=== PATIENT | male | born 1965 | race Caucasian/White ===

== ENCOUNTER 2018-03-05 11:56 | Day surgery (SDC) | END 2018-03-05 16:57 | disposition home or self-care (01) ==

== ENCOUNTER 2018-08-25 13:20 | Inpatient (IN) | END 2018-08-26 12:38 | disposition home or self-care (01) | DRG 379 ==

== ENCOUNTER 2018-09-30 10:53 | Inpatient (IN) | payer OTHER ==
[~2018-09-30] VITALS: Ht 162.6 cm; Wt 90.0 kg
[~2018-09-30 10:53] MED LIST: FER325 PO; HYDR25SU23 PR; PANT40TA3 PO
[2018-09-30] MEDS ORDERED: PANTOPRAZOLE 40 MG INJ IV STA (11:14)
--- NOTE | 2018-09-30 13:09 | ERD ---
ER Documentation Chief Complaint Chief Complaint sent by pcp - hx of Gi bleed - possible blood transfusion ,hx of bt 07/2018 HPI 52-year-old male presents to the emergency department on referral from the primary care doctor for evaluation of anemia. Patient has a history of chronic GI bleeds from AVMs. Most recently, he feels weak which is the way that he usually feels after he gets anemic. He reports no significant abdominal pain, lightheadedness, loss of consciousness, chest pain or shortness of breath. ROS All systems reviewed and are negative except as per history of present illness. Medications Home Meds Active Scripts Pantoprazole* (Protonix*) 40 Mg Tablet.dr, 40 MG PO DAILY, #30 TAB Prov:JIMENA STONE [employer] 08/26/18 Hydrocortisone Acetate (Anusol-Hc) 25 Mg Supp.rect, 25 MG MI QHS, #10 SUPP.RECT Prov:JIMENA STONE [employer] 08/26/18 Reported Medications Ferrous Sulfate* (Ferrous Sulfate*) 325 Mg Tabec, 325 MG PO BID, TAB 08/25/18 Allergies Allergies: Coded Allergies: No Known Allergy (Unverified , 08/25/18) PMhx/Soc History of Surgery: Yes (Tonsilectomy, right knee surgery) Anesthesia Reaction: No Hx Neurological Disorder: No Hx Respiratory Disorders: No Hx Cardiac Disorders: No Hx Psychiatric Problems: No Hx Miscellaneous Medical Probl: Yes (anemia, gerd) Hx Alcohol Use: Yes (occasional) Hx Substance Use: No Hx Tobacco Use: No Smoking Status: Never smoker FmHx Noncontributory for chief complaint Physical Exam Vitals Vital Signs Date Temp Pulse Resp B/P (MAP) Pulse Ox O2 O2 Flow FiO2 Time Delivery Rate 09/30/18 98.5 74 19 117/68 100 10:54 (84) Physical Exam GENERAL: Pale gentleman in no acute distress HEENT: Pupils equal, round, and reactive to light. EOMI. There is no scleral icterus. NECK: C-spine is soft and supple, there is no meningismus. There is no cervical lymphadenopathy. LUNGS: Clear to auscultation bilaterally. There are no rales, wheezes or rhonchi. HEART: Regular rate and rhythm, no murmurs, clicks, rubs or gallops. ABDOMEN: Soft, non-tender, non-distended. There are bowel sounds in all four quadrants. No rebound or guarding. EXTREMITIES: There is no peripheral cyanosis or edema. No focal swelling or erythema. NEURO: The patient moves all four extremities with 5/5 strength. Cranial nerves II - XII are intact. Normal gait. Alert and oriented SKIN: There is no apparent rash or petechiae. HEME/LYMPHATIC: There is no evidence of excessive bruising or lymphedema. PSYCHIATRIC: The patient does not appear anxious or depressed. Result Diagram: 09/30/18 1133 09/30/18 1133 Results 24 hrs Laboratory Tests Test 09/30/18 11:33 White Blood Count 4.9 10^3/ul Red Blood Count 3.46 10^6/ul Hemoglobin 6.3 g/dl Hematocrit 24.6 % Mean Corpuscular Volume 71.1 fl Mean Corpuscular Hemoglobin 18.2 pg Mean Corpuscular Hemoglobin Concent 25.6 g/dl Red Cell Distribution Width 21.2 % Platelet Count 378 10^3/UL Mean Platelet Volume 10.4 fl Immature Granulocytes % 0.200 % Neutrophils % 66.7 % Lymphocytes % 20.8 % Monocytes % 8.0 % Eosinophils % 4.1 % Basophils % 0.2 % Nucleated Red Blood Cells % 0.0 /100WBC Immature Granulocytes # 0.010 10^3/ul Neutrophils # 3.3 10^3/ul Lymphocytes # 1.0 10^3/ul Monocytes # 0.4 10^3/ul Eosinophils # 0.2 10^3/ul Basophils # 0.0 10^3/ul Nucleated Red Blood Cells # 0.0 10^3/ul Prothrombin Time 13.4 Sec Prothrombin Time Ratio 1.0 INR International Normalized Ratio 1.01 Activated Partial Thromboplast Time 24.1 Sec Sodium Level 138 mmol/L Potassium Level 3.9 mmol/L Chloride Level 103 mmol/L Carbon Dioxide Level 29 mmol/L Anion Gap 6 Blood Urea Nitrogen 10 mg/dl Creatinine 0.74 mg/dl Est Glomerular Filtrat Rate mL/min > 60 mL/min Glucose Level 85 mg/dl Calcium Level 9.1 mg/dl Total Bilirubin 0.3 mg/dl Direct Bilirubin 0.00 mg/dl Indirect Bilirubin 0.3 mg/dl Aspartate Amino Transf (AST/SGOT) 12 IU/L Alanine Aminotransferase (ALT/SGPT) 19 IU/L Alkaline Phosphatase 64 IU/L Troponin I < 0.012 ng/ml Total Protein 6.8 g/dl Albumin 3.8 g/dl Globulin 3.00 g/dl Albumin/Globulin Ratio 1.26 Current Medications Medications Dose Sig/Mariano Start Time Status Last (Trade) Ordered Route PRN Stop Time Admin Dose Reason Admin 40 mg ONCE STAT 09/30/18 DC 09/30/18 Pantoprazole IV 11:14 11:45 (Protonix 09/30/18 11:16 Iv) Procedures/MDM Patient was taken to a room, seen and evaluated. Comfort measures were in itiated. Diagnostic tests were ordered and reviewed. 3 LEAD RHYTHM STRIP: Normal sinus rhythm without ectopy EK lead EKG reviewed by myself: Normal Sinus Rhythm Normal [place] and intervals No ST elevation, depression, or T wave inversion Impression: Normal EKG RADIOLOGY: Reviewed with the radiologist CONSULTATION: Hospitalist was notified for admission REEVALUATION: 1305: Diagnostic tests were appreciated. Patient remained hemo- medically stable. Arrangements made for admission. MEDICAL DECISION MAKIN-year-old male with a chronic history of GI bleeds. Patient has a severe anemia will require admission to the hospital for transfusion and monitoring. Transfusion has been initiated in the emergency room. CRITICAL CARE: Time:>35 minutes Patient has a significant chance of clinical deterioration Treatments/Evaluations: Close monitoring and treatment of unstable vital signs, cardiorespiratory, and neurologic status, while maintaining tight balance of fluid, respiratory, and cardiac interventions. Departure Diagnosis: Primary Impression: GI bleed Additional Impression: Anemia Condition: Serious GODFREYCONCHA Sep 30, 2018 13:09
[2018-09-30] MEDS: SOD CHLORIDE 0.9% 1,000 ML IV SCH ×2 (13:36→23:36)
[2018-09-30] MEDS ORDERED: morphine 2 MG INJ IV PRN (14:00)
[2018-09-30] MEDS ORDERED: NACL 0.9% 3 ML SYG IV SCH (14:00)
[2018-09-30] MEDS ORDERED: HYDROCODONE/APAP (5/325) TAB PO PRN (14:00)
[2018-09-30] MEDS ORDERED: ONDANSETRON 4 MG INJ IV PRN (14:00)
[2018-09-30] MEDS ORDERED: ACETAMINOPHEN 325 MG TAB PO PRN (14:00)
--- NOTE | 2018-09-30 14:27 | HP ---
Date/Time of Note Date/Time of Note DATE: 09/30/18 TIME: 14:26 Assessment/Plan VTE Prophylaxis Pharmacological prophylaxis: NA/contraindicated, other Pharm contraindication: bleeding Lines/Catheters IV Catheter Type (from Nrs): [place] Assessment/Plan Hospital Course Objective Physical exam General: Patient is laying in bed and answers questions appropriately Mentation: Patient is alert and oriented 4, Head: Normocephalic atraumatic Eyes: EOMI, pupils reactive to light Neck: Supple, nontender, midline Respiratory: Clear to auscultation bilaterally Cardiovascular: regular rate, no obvious murmurs Gastrointestinal: non-tender to palpation, bowel sounds heard. Neurological: Moves all extremities spontaneously Skin: No new skin lesions Assessment and plan Acute GI bleed -Bright red blood per rectum, cannot rule out brisk upper GI bleed as patient does have a history of erosive gastritis -Will initiate PPI drip until erosive gastritis is ruled out per GI -GI consultation pending -IV fluids -N.p.o. Acute on chronic anemia -Secondary to acute blood loss as well as iron deficiency -Transfuse as needed Generalized weakness -Secondary to above acute anemia and GI bleed -Transfuse -IV fluids Disposition -GI consultation pending, keep n.p.o. with IV fluids and PPI drip. Result Diagram: 09/30/18 1133 09/30/18 1133 Results 24hrs Laboratory Tests Test 09/30/18 11:33 White Blood Count 4.9 Red Blood Count 3.46 L Hemoglobin 6.3 *L Hematocrit 24.6 L Mean Corpuscular Volume 71.1 L Mean Corpuscular Hemoglobin 18.2 L Mean Corpuscular Hemoglobin Concent 25.6 L Red Cell Distribution Width 21.2 H Platelet Count 378 Mean Platelet Volume 10.4 Immature Granulocytes % 0.200 Neutrophils % 66.7 Segmented Neutrophils % (Manual) 77 Band Neutrophils % (Manual) 2 Lymphocytes % 20.8 Lymphocytes % (Manual) 15 Monocytes % 8.0 Eosinophils % 4.1 Eosinophils % (Manual) 6 Basophils % 0.2 Nucleated Red Blood Cells % 0.0 Immature Granulocytes # 0.010 Neutrophils # 3.3 Neutrophils # (Manual) 3.8 Band Neutrophils # 0.0 Lymphocytes (Manual) 0.7 L Lymphocytes # 1.0 Monocytes # 0.4 Eosinophils # 0.2 Basophils # 0.0 Nucleated Red Blood Cells # 0.0 Pathologist Review (Hematology) YES Platelet Estimate NORMAL Giant Platelets 2 H Poikilocytosis 2+ Anisocytosis 2+ Microcytosis 1+ Ovalocytes 1+ Prothrombin Time 13.4 Prothrombin Time Ratio 1.0 INR International Normalized Ratio 1.01 Activated Partial Thromboplast Time 24.1 Sodium Level 138 Potassium Level 3.9 Chloride Level 103 Carbon Dioxide Level 29 Anion Gap 6 Blood Urea Nitrogen 10 Creatinine 0.74 Est Glomerular Filtrat Rate mL/min > 60 Glucose Level 85 Calcium Level 9.1 Total Bilirubin 0.3 Direct Bilirubin 0.00 Indirect Bilirubin 0.3 Aspartate Amino Transf (AST/SGOT) 12 L Alanine Aminotransferase (ALT/SGPT) 19 Alkaline Phosphatase 64 Troponin I < 0.012 Total Protein 6.8 Albumin 3.8 Globulin 3.00 Albumin/Globulin Ratio 1.26 HPI/ROS Admit Date/Time Admit Date/Time Hx of Present Illness Patient is a male with a past medical history significant for symptomatic anemia due to internal hemorrhoids as well as erosive gastritis. Patient returned to the ED today due to a 2-week history of progressively worsening bright red blood per rectum. Patient states that the last time he had a bloody bowel movement was yesterday, states that today there was no bloody bowel movements however he did feel noticeably weaker which he normally attributes to anemia. Patient has been admitted multiple times for similar symptoms. Patient feels generally the same except for a generalized weakness. Patient denies chest pain, shortness of breath, headache, nausea, vomiting, abdominal pain, leg pain PMH/Family/Social Past Medical History Medications Current Medications Sodium Chloride 1,000 ml @ 100 mls/hr Q10H IV ; Start 09/30/18 at 13:36 IV Flush (NS 3 ml) 3 ml PER PROTOCOL IV ; Start 09/30/18 at 14:00 Ondansetron HCl (Zofran Inj) 4 mg Q6H PRN IV NAUSEA AND/OR VOMITING; Start 09/30/18 at 14:00 Acetaminophen (Tylenol Tab) 650 mg Q6H PRN PO PAIN LEVEL 1-3 OR FEVER; Start 09/30/18 at 14:00 Acetaminophen/ Hydrocodone Bitart ([place] (5/325)) 1 tab Q6H PRN PO PAIN LEVEL 4-6; Start 09/30/18 at 14:00 Morphine Sulfate (morphine) 2 mg Q4H PRN IV PAIN LEVEL 7-10; Start 09/30/18 at 14:00 Pantoprazole 80 mg/Sodium Chloride 100 ml @ 10 mls/hr Q10H IV ; Start 09/30/18 at 14:30; Status UNV Coded Allergies: No Known Allergy (Unverified , 08/25/18) Social History Smoking Status: Never smoker Exam/Review of Systems Vital Signs Vitals Vital Signs Date Temp Pulse Resp B/P (MAP) Pulse Ox O2 O2 Flow FiO2 Time Delivery Rate 09/30/18 98.5 74 19 117/68 100 10:54 (84) LUZ ALVARADO Sep 30, 2018 14:27
[2018-09-30] MEDS: PANTOPRAZOLE IV 80 MG in SOD CHLORIDE 0.9% 100 ML IV SCH (14:59)
--- NOTE | 2018-09-30 17:01 | CONS ---
Date/Time of Note Date/Time of Note DATE: 09/30/18 TIME: 16:55 Assessment/Plan Assessment/Plan Hospital Course Summary Assessment and Plan: Assessment: Chronic anemia with recurrent GI bleed Plan: Nuclear med bleeding scan Results possible repeat EGD/colonoscopy Monitor labs (h/h q6hrs), transfuse as needed Continue PPI gtt for now Regular diet has been started Patient seen in collaboration with Dr. Hernandez Result Diagram: 09/30/18 1133 09/30/18 1133 Results 24hrs Laboratory Tests Test 09/30/18 11:33 White Blood Count 4.9 Red Blood Count 3.46 L Hemoglobin 6.3 *L Hematocrit 24.6 L Mean Corpuscular Volume 71.1 L Mean Corpuscular Hemoglobin 18.2 L Mean Corpuscular Hemoglobin Concent 25.6 L Red Cell Distribution Width 21.2 H Platelet Count 378 Mean Platelet Volume 10.4 Immature Granulocytes % 0.200 Neutrophils % 66.7 Segmented Neutrophils % (Manual) 77 Band Neutrophils % (Manual) 2 Lymphocytes % 20.8 Lymphocytes % (Manual) 15 Monocytes % 8.0 Eosinophils % 4.1 Eosinophils % (Manual) 6 Basophils % 0.2 Nucleated Red Blood Cells % 0.0 Immature Granulocytes # 0.010 Neutrophils # 3.3 Neutrophils # (Manual) 3.8 Band Neutrophils # 0.0 Lymphocytes (Manual) 0.7 L Lymphocytes # 1.0 Monocytes # 0.4 Eosinophils # 0.2 Basophils # 0.0 Nucleated Red Blood Cells # 0.0 Pathologist Review (Hematology) YES Platelet Estimate NORMAL Giant Platelets 2 H Poikilocytosis 2+ Anisocytosis 2+ Microcytosis 1+ Ovalocytes 1+ Prothrombin Time 13.4 Prothrombin Time Ratio 1.0 INR International Normalized Ratio 1.01 Activated Partial Thromboplast Time 24.1 Sodium Level 138 Potassium Level 3.9 Chloride Level 103 Carbon Dioxide Level 29 Anion Gap 6 Blood Urea Nitrogen 10 Creatinine 0.74 Est Glomerular Filtrat Rate mL/min > 60 Glucose Level 85 Calcium Level 9.1 Total Bilirubin 0.3 Direct Bilirubin 0.00 Indirect Bilirubin 0.3 Aspartate Amino Transf (AST/SGOT) 12 L Alanine Aminotransferase (ALT/SGPT) 19 Alkaline Phosphatase 64 Troponin I < 0.012 Total Protein 6.8 Albumin 3.8 Globulin 3.00 Albumin/Globulin Ratio 1.26 CC: YOAV HERNANDEZ MD ; Consultation Date/Type/Reason Admit Date/Time Date of Consultation: Sep 30, 2018 Type of Consult GI Reason for Consultation Chronic anemia Hx of Present Illness This is a 52-year-old male with history of chronic anemia recurrent GI bleed Who presented to the hospital as directed by his PCP for low hemoglobin. Patient states he has been having bright red blood per rectum for the past 14 days evaluation normal blood workup patient found to have hemoglobin 6's he was sent to the ED for further evaluation. Currently patient denies active bleeding he additionally denies nausea/vomiting, hematemesis, diarrhea, or constipation. He states he had an EGD colonoscopy here a few months ago however according to records ED colonoscopy was in March 05, 2018 Gastric erosions, abscess negative for H. pylori. Colonoscopy elevated cecum showing internal hemorrhoids, no colon neoplasm was identified. Patient's said he was seen by a surgeon for poss ible hemorrhoidectomy they were told he had one hemorrhoid at that time with no active bleeding and therefore did not need a hemorrhoidectomy. He denies taking nonsteroidal anti-inflammatory drugs, or taking any blood thinners. We will plan to obtain a bleeding scan and continue to monitor labs based on those results, may recommend repeat EGD/colonoscopy for further information. Review of Systems: A 12 system, review was conducted and is negative except as noted in the HPI or here. Past Medical History Medications Current Medications Sodium Chloride 1,000 ml @ 100 mls/hr Q10H IV ; Start 09/30/18 at 13:36 IV Flush (NS 3 ml) 3 ml PER PROTOCOL IV ; Start 09/30/18 at 14:00 Ondansetron HCl (Zofran Inj) 4 mg Q6H PRN IV NAUSEA AND/OR VOMITING; Start 09/30/18 at 14:00 Acetaminophen (Tylenol Tab) 650 mg Q6H PRN PO PAIN LEVEL 1-3 OR FEVER; Start 09/30/18 at 14:00 Acetaminophen/ Hydrocodone Bitart ([place] (5/325)) 1 tab Q6H PRN PO PAIN LEVEL 4-6; Start 09/30/18 at 14:00 Morphine Sulfate (morphine) 2 mg Q4H PRN IV PAIN LEVEL 7-10; Start 09/30/18 at 14:00 Pantoprazole 80 mg/Sodium Chloride 100 ml @ 10 mls/hr Q10H IV Last administer ed on 09/30/18at 14:59; Admin Dose 10 MLS/HR; Start 09/30/18 at 15:00 Allergies: Coded Allergies: No Known Allergy (Unverified , 08/25/18) Social History Smoking Status: Never smoker Exam/Review of Systems Vital Signs Vitals Vital Signs Date Temp Pulse Resp B/P (MAP) Pulse Ox O2 O2 Flow FiO2 Time Delivery Rate 09/30/18 98.4 80 14 116/63 99 Room Air 16:30 (80) Exam Constitutional: alert, oriented, other (Pale) Psych: no complaints Head: normocephalic Eyes: nl conjunctiva ENMT: nl external ears & nose Neck: supple Respiratory: clear to auscultation Cardiovascular: regular rate and rhythm, nl pulses Gastrointestinal: soft, non-tender, bowel sounds; No distended, No firm, No hepatomegaly, No mass, No rebound or guarding Musculoskeletal: nl extremities to inspection Medications Medications Current Medications Sodium Chloride 1,000 ml @ 100 mls/hr Q10H IV ; Start 09/30/18 at 13:36 IV Flush (NS 3 ml) 3 ml PER PROTOCOL IV ; Start 09/30/18 at 14:00 Ondansetron HCl (Zofran Inj) 4 mg Q6H PRN IV NAUSEA AND/OR VOMITING; Start 09/30/18 at 14:00 Acetaminophen (Tylenol Tab) 650 mg Q6H PRN PO PAIN LEVEL 1-3 OR FEVER; Start 09/30/18 at 14:00 Acetaminophen/ Hydrocodone Bitart ([place] (5/325)) 1 tab Q6H PRN PO PAIN LEVEL 4-6; Start 09/30/18 at 14:00 Morphine Sulfate (morphine) 2 mg Q4H PRN IV PAIN LEVEL 7-10; Start 09/30/18 at 14:00 Pantoprazole 80 mg/Sodium Chloride 100 ml @ 10 mls/hr Q10H IV Last administered on 09/30/18at 14:59; Admin Dose 10 MLS/HR; Start 09/30/18 at 15:00 JEET VALDOVINOS Sep 30, 2018 17:01
[2018-09-30 18:55] VITALS: BP 103/57; PULSE 79; RESP 19
[2018-09-30 19:59] VITALS: Ht 162.6 cm; Wt 90.0 kg
[2018-09-30 20:00] VITALS: BP 110/64; PULSE 75; RESP 18
--- NOTE | 2018-09-30 20:00 | NUR ---
Patient arrived to room from ER via bed at 1945. Vital signs stable with no signs of distress noted. Patient denies pain upon assessment. Alert and oriented x4. Intermittent nonproductive cough noted. Patient denies discomfort. No skin breakdown noted. Protonix drip ongoing upon assessment. Oriented patient to room, call light, and bed functions. Safety precautions and hourly rounding currently in place.
[2018-10-01] MEDS: SOD CHLORIDE 0.9% 1,000 ML IV SCH ×2 (01:43→16:08)
[2018-10-01 02:00] VITALS: BP 102/55; PULSE 78; RESP 19
[2018-10-01] MEDS: PANTOPRAZOLE IV 80 MG in SOD CHLORIDE 0.9% 100 ML IV SCH ×4 (02:02→21:00)
--- NOTE | 2018-10-01 06:29 | NUR ---
Hemoglobin of 7.0 noted at this time. Notified Dr. Lucio and awaiting further orders. Safety precautions and hourly rounding currently in place.
--- NOTE | 2018-10-01 06:39 | NUR ---
Patient in room asleep with no signs of distress. Vital signs stable this shift. Patient denied pain. Protonix drip infusing at this time. Will endorse to oncoming nurse to close upon completion on IVSS. No other changes otherwise noted from previous. All needs met and medications administered per MD order. Patient turned every 2 hours and OOB this shift. Safety precautions and hourly rounding currently in place until change of shift.
[2018-10-01 08:31] VITALS: BP 103/67; PULSE 79; RESP 18
[2018-10-01] MEDS ORDERED: SOD CHLORIDE 0.9% 250 ML IV* ONE (09:33)
--- NOTE | 2018-10-01 13:13 | PN ---
Date/Time of Note Date/Time of Note DATE: 10/01/18 TIME: 13:05 Assessment/Plan VTE Prophylaxis Risk score (from Ns)>0 risk: 2 SCD applied (from Ns): Yes SCD contraindicated: other Pharmacological prophylaxis: other (scds) Lines/Catheters IV Catheter Type (from [facility]): Peripheral IV Assessment/Plan Hospital Course Summary Assessment and Plan: Assessment: Chronic anemia with recurrent GI bleed Plan: Nuclear med bleeding scan- pending pt remains anemic- no overt signs of Gi bleed- plan to repeat EGD/colonoscopy tomorrow if bleeding source deemed 2/2 to hemorrhoids, poss recs to have surgery eval for poss hemorrhoidectomy PPI BID clear liquid diet to help with prep Monitor labs transfuse as needed Patient seen in collaboration with Dr. Hernandez/Jerman Subjective: Course reviewed with nursing staff Patient interviewed and examined All labs, imaging and other results reviewed The patient currently receiving blood transfusion No c/o abd pain, nausea or vomiting Awaiting NM bleeding scan. Discussed plan for EGD/colon tomorrow pt verbalized understanding and is agreeable. PHYSICAL EXAMINATION: GENERAL: Well developed, well nourished, alert & oriented x 3, in no acute distress,pale SKIN: No lesions. HEAD: Normocephalic, atraumatic, no tenderness. EYES: Pupils equal reactive to light. EARS/NOSE AND THROAT: Ears normal, nose normal. NECK: Supple, no masses, thyroid normal CHEST: Inspection within normal limits. CARDIOVASCULAR: Heart: Regular rate and rhythm. RESPIRATORY: Lungs clear to auscultation GASTROINTESTINAL AND LIVER: Abdomen: Soft, non tenderness, non-distended, no hernias, no masses, no organomegaly, no ascites, no guarding, no rebound tenderness, normoactive bowel sounds. Rectal: Deferred Result Diagram: 10/01/1827 10/01/18526 Results 24hrs Laboratory Tests Test 10/01/18 05:27 10/01/18 07:53 White Blood Count 6.0 # Red Blood Count 3.60 L Hemoglobin 7.0 L Hematocrit 26.0 L Mean Corpuscular Volume 72.2 L Mean Corpuscular Hemoglobin 19.4 L Mean Corpuscular Hemoglobin Concent 26.9 L Red Cell Distribution Width 22.0 H Platelet Count 358 Mean Platelet Volume 9.9 Immature Granulocytes % 0.300 Neutrophils % 74.0 Lymphocytes % 16.1 Monocytes % 6.5 Eosinophils % 2.8 Basophils % 0.3 Nucleated Red Blood Cells % 0.0 Immature Granulocytes # 0.020 Neutrophils # 4.5 Lymphocytes # 1.0 Monocytes # 0.4 Eosinophils # 0.2 Basophils # 0.0 Nucleated Red Blood Cells # 0.0 Sodium Level 141 Potassium Level 4.3 Chloride Level 103 Carbon Dioxide Level 31 Anion Gap 7 Blood Urea Nitrogen 13 Creatinine 0.79 Est Glomerular Filtrat Rate mL/min > 60 Glucose Level 100 Hemoglobin A1c 5.5 Calcium Level 9.3 Magnesium Level 2.1 Total Bilirubin 0.6 Direct Bilirubin 0.00 Indirect Bilirubin 0.6 Aspartate Amino Transf (AST/SGOT) 13 L Alanine Aminotransferase (ALT/SGPT) 19 Alkaline Phosphatase 67 Total Protein 6.4 Albumin 3.5 Globulin 2.90 Albumin/Globulin Ratio 1.20 Lab Scanned Report BLOOD TRANSFUSION Exam/Review of Systems Vital Signs Vitals Vital Signs Date Temp Pulse Resp B/P (MAP) Pulse Ox O2 O2 Flow FiO2 Time Delivery Rate 10/01/18 98.6 79 18 103/67 97 Room Air 08:31 (79) Intake and Output 09/30/18 09/30/18 10/01/18 1515:00 23:00 07:00 IntakeIntake Total 279 ml 145 ml OutputOutput Total 300 ml BalanceBalance 279 ml -155 ml Medications Medications Current Medications Sodium Chloride 1,000 ml @ 100 mls/hr Q10H IV Last administered on 10/01/18at 01:43; Admin Dose 100 MLS/HR; Start 09/30/18 at 13:36 IV Flush (NS 3 ml) 3 ml PER PROTOCOL IV ; Start 09/30/18 at 14:00 Ondansetron HCl (Zofran Inj) 4 mg Q6H PRN IV NAUSEA AND/OR VOMITING; Start 09/30/18 at 14:00 Acetaminophen (Tylenol Tab) 650 mg Q6H PRN PO PAIN LEVEL 1-3 OR FEVER; Start 09/30/18 at 14:00 Acetaminophen/ Hydrocodone Bitart ([place] (5/325)) 1 tab Q6H PRN PO PAIN LEVEL 4-6; Start 09/30/18 at 14:00 Morphine Sulfate (morphine) 2 mg Q4H PRN IV PAIN LEVEL 7-10; Start 09/30/18 at 14:00 Pantoprazole 80 mg/Sodium Chloride 100 ml @ 10 mls/hr Q10H IV Last administered on 10/01/18at 02:02; Admin Dose 10 MLS/HR; Start 09/30/18 at 15:00 JEET VALDOVINOS Oct 01, 2018 13:13
[2018-10-01] MEDS ORDERED: BISACODYL (EC) 5 MG TAB PO ONE (13:30)
--- NOTE | 2018-10-01 13:38 | PN ---
Date/Time of Note Date/Time of Note DATE: 10/01/18 TIME: 13:35 Objective Vitals Vital Signs Date Temp Pulse Resp B/P (MAP) Pulse Ox O2 O2 Flow FiO2 Time Delivery Rate 10/01/18 98.6 79 18 103/67 97 Room Air 08:31 (79) Intake and Output 09/30/18 09/30/18 10/01/18 1515:00 23:00 07:00 IntakeIntake Total 279 ml 145 ml OutputOutput Total 300 ml BalanceBalance 279 ml -155 ml Results Result Diagram: 10/01/1852610/01/18526 Medications Medications Current Medications Sodium Chloride 1,000 ml @ 100 mls/hr Q10H IV Last administered on 10/01/18at 01:43; Admin Dose 100 MLS/HR; Start 09/30/18 at 13:36 IV Flush (NS 3 ml) 3 ml PER PROTOCOL IV ; Start 09/30/18 at 14:00 Ondansetron HCl (Zofran Inj) 4 mg Q6H PRN IV NAUSEA AND/OR VOMITING; Start 09/30/18 at 14:00 Acetaminophen (Tylenol Tab) 650 mg Q6H PRN PO PAIN LEVEL 1-3 OR FEVER; Start 09/30/18 at 14:00 Acetaminophen/ Hydrocodone Bitart ([place] (5/325)) 1 tab Q6H PRN PO PAIN LEVEL 4-6; Start 09/30/18 at 14:00 Morphine Sulfate (morphine) 2 mg Q4H PRN IV PAIN LEVEL 7-10; Start 09/30/18 at 14:00 Pantoprazole 80 mg/Sodium Chloride 100 ml @ 10 mls/hr Q10H IV Last administered on 10/01/18at 02:02; Admin Dose 10 MLS/HR; Start 09/30/18 at 15:00 Magnesium Citrate (Citroma) 300 ml ONCE ONCE PO ; Start 10/01/18 at 17:30; Stop 10/01/18 at 17:31 Polyethylene Glycol (Miralax) 119 gm ONCE ONCE PO ; Start 10/01/18 at 18:30; Stop 10/01/18 at 18:31 Polyethylene Glycol (Miralax) 119 gm 2ND DOSE (GI PREP) ONCE PO ; Start 10/02/18 at 06:00; Stop 10/02/18 at 06:01 Bisacodyl (Dulcolax) 10 mg 2ND DOSE (GI PREP) ONCE PO ; Start 10/02/18 at 08:00; Stop 10/02/18 at 08:01 Azithromycin 250 ml @ 250 mls/hr Q24H IVPB ; Start 10/01/18 at 14:00; Status UNV Guaifenesin/ Codeine Phosphate (Robitussin Ac Liquid Cup) 5 ml Q4H PRN PO cough; Start 10/01/18 at 14:00; Status UNV VTE Prophylaxis Risk score (from [facility])>0 risk: 2 SCD applied (from [facility]): Yes Lines/Catheters IV Catheter Type: Bah in Place: No Assessment/Plan Hospital Course subjective patient had no bloody bowel movements overnight. complains of cough. Objective Physical exam General: Patient is laying in bed and answers questions appropriately Mentation: Patient is alert and oriented 4, Head: Normocephalic atraumatic Eyes: EOMI, pupils reactive to light Neck: Supple, nontender, midline Respiratory: Clear to auscultation bilaterally Cardiovascular: regular rate, no obvious murmurs Gastrointestinal: non-tender to palpation, bowel sounds heard. Neurological: Moves all extremities spontaneously Skin: No new skin lesions Assessment and plan Acute GI bleed -Bright red blood per rectum, cannot rule out brisk upper GI bleed as patient does have a history of erosive gastritis -Will initiate PPI drip until erosive gastritis is ruled out per GI -nuclear bleeding scan and egd/colonoscopy pending -IV fluids -clears ok by GI Acute on chronic anemia -Secondary to acute blood loss as well as iron deficiency -Transfuse as needed Generalized weakness -Secondary to above acute anemia and GI bleed -Transfuse -IV fluids Disposition -nuclear scan pending -egd/colonoscopy tomorrow LUZ ALVARADO Oct 01, 2018 13:38
--- NOTE | 2018-10-01 14:00 | NUR ---
NURSE NOTE: Pt off unit at 1400 for NM scan. Earlier Dr. Womack was making rounds, informed regarding dry nonproductive cough noted with patient. No signs of distress. Pt finished blood transfusion x 1 unit. tolerated well.
[2018-10-01] MEDS: AZITHROMYCIN 500MG/NS (PMX) 250 ML IVPB SCH (16:07)
[2018-10-01] MEDS: GUAIFENESIN/CODEINE 5ML CUP PO PRN ×2 (16:36→21:31)
[2018-10-01] MEDS ORDERED: MAGNESIUM CITRATE 300 ML BTL PO ONE (17:30)
--- NOTE | 2018-10-01 18:28 | NUR ---
NURSE NOTE: no acute changes. pt is axox4. no signs of distress. cough medicine given. bowel prep started as ordered. tolerating well so far. aware regarding npo for tomorrow. spoke to lab regarding hct draw since pt is back from NM scan. family at bedside. will continue to monitor.
[2018-10-01] MEDS ORDERED: POLYETHYLENE GLYCOL 3350 119 GM POWDER PO ONE (18:30)
--- NOTE | 2018-10-01 19:46 | NUR ---
NURSE NOTE: Report given to MIA Nino. Endorsed to continue to give patient's miralax in the pitcher. Patient is aware that he needs to drink it for bowel prep. Pt finish mag citrate and one glass of 1000 ml of the miralax.
[2018-10-01 20:00] VITALS: BP 113/67; PULSE 84; RESP 18
[2018-10-02] VITALS (19 sets, daily range): BP systolic 85–126; BP diastolic 46–63; PULSE 58–88; RESP 17–73
[2018-10-02] MEDS: SOD CHLORIDE 0.9% 1,000 ML IV SCH ×3 (02:51→23:48)
[2018-10-02] MEDS: PANTOPRAZOLE IV 80 MG in SOD CHLORIDE 0.9% 100 ML IV SCH ×2 (02:51→17:42)
[2018-10-02] MEDS ORDERED: POLYETHYLENE GLYCOL 3350 119 GM POWDER PO ONE (06:00)
--- NOTE | 2018-10-02 06:56 | NUR ---
Patient in room asleep with no signs of distress. Vital signs stable. Patient complained x1 of chest pressure from intermittent nonproductive cough. Administered analgesic per MD order. Protonic drip ongoing this shift. Will endorse to oncoming nurse to close upon completion of infusion on IVSS. All needs met and medications administered per MD order. Patient turned every 2 hours and OOB this shift. Safety precautions and hourly rounding currently in place. Patient currently NPO and aware of plan of care for today.
[2018-10-02] MEDS ORDERED: BISACODYL (EC) 5 MG TAB PO ONE (08:00)
--- NOTE | 2018-10-02 11:45 | NUR ---
SS Note: AHCD/Initial Visit SW received notification pt interested in more information regarding AHCD. The patient is a 52-year-old male admitted due to GI Bleed, Anemia. Pt's spouse, Deb Montiel , was at bedside. Pt provided consent for spouse to be present. Pt awake, alert, and oriented x4. Pt very pleasant and appeared to be coping appropriately. Pt verbally appointed his spouse as surrogate decision maker/spokesperson. Pt confirmed address on facesheet and sated he lives with spouse. Pt stated he is disabled and receives disability benefits. Per pt, normally he is independent with ADL's and ambulates with a cane. Pt has [facility] insurance and has a PCP. Pt's spouse is his primary mode of transportation to his appointments. SW introduced self and the role of the oncology social worker. SW provided support and reassurance. SW discussed and provided education about completing and facilitating the AHCD. Pt was provided with AHCD form for his completion. No AHCD f/u requested. SW remains available for f/u as needed.
[2018-10-02] MEDS: AZITHROMYCIN 500MG/NS (PMX) 250 ML IVPB SCH (13:19)
--- NOTE | 2018-10-02 14:10 | PN ---
Date/Time of Note Date/Time of Note DATE: 10/02/18 TIME: 14:08 Objective Vitals Vital Signs Date Temp Pulse Resp B/P (MAP) Pulse Ox O2 O2 Flow FiO2 Time Delivery Rate 10/02/18 98.2 74 18 103/57 97 Room Air 08:17 (72) Intake and Output 10/01/18 10/01/18 10/02/18 1515:00 23:00 07:00 IntakeIntake Total 1080 ml 1305 ml 1320 ml BalanceBalance 1080 ml 1305 ml 1320 ml Results Result Diagram: 10/02/18 0451 10/02/18 0451 Medications Medications Current Medications Sodium Chloride 1,000 ml @ 100 mls/hr Q10H IV Last administered on 10/02/18at 12:16; Admin Dose 100 MLS/HR; Start 09/30/18 at 13:36 IV Flush (NS 3 ml) 3 ml PER PROTOCOL IV ; Start 09/30/18 at 14:00 Ondansetron HCl (Zofran Inj) 4 mg Q6H PRN IV NAUSEA AND/OR VOMITING; Start 09/30/18 at 14:00 Acetaminophen (Tylenol Tab) 650 mg Q6H PRN PO PAIN LEVEL 1-3 OR FEVER; Start 09/30/18 at 14:00 Acetaminophen/ Hydrocodone Bitart ([place] (5/325)) 1 tab Q6H PRN PO PAIN LEVEL 4-6; Start 09/30/18 at 14:00 Morphine Sulfate (morphine) 2 mg Q4H PRN IV PAIN LEVEL 7-10; Start 09/30/18 at 14:00 Pantoprazole 80 mg/Sodium Chloride 100 ml @ 10 mls/hr Q10H IV Last administered on 10/02/18at 02:51; Admin Dose 10 MLS/HR; Start 09/30/18 at 15:00 Azithromycin 250 ml @ 250 mls/hr Q24H IVPB Last administered on 10/02/18at 13:19; Admin Dose 250 MLS/HR; Start 10/01/18 at 14:30 Guaifenesin/ Codeine Phosphate (Robitussin Ac Liquid Cup) 5 ml Q4H PRN PO cough Last administered on 10/01/18at 21:31; Admin Dose 5 ML; Start 10/01/18 at 14:00 VTE Prophylaxis Risk score (from Nsg)>0 risk: 2 SCD applied (from Ns): Yes Lines/Catheters IV Catheter Type: Bah in Place: No Assessment/Plan Hospital Course subjective patient had no bloody bowel movements overnight. Objective Physical exam General: Patient is laying in bed and answers questions appropriately Mentation: Patient is alert and oriented 4, Head: Normocephalic atraumatic Eyes: EOMI, pupils reactive to light Neck: Supple, nontender, midline Respiratory: Clear to auscultation bilaterally Cardiovascular: regular rate, no obvious murmurs Gastrointestinal: non-tender to palpation, bowel sounds heard. Neurological: Moves all extremities spontaneously Skin: No new skin lesions Assessment and plan Acute GI bleed -Bright red blood per rectum, cannot rule out brisk upper GI bleed as patient does have a history of erosive gastritis -Will initiate PPI drip until erosive gastritis is ruled out per GI -nuclear bleeding scan not revealing, egd/colonoscopy pending -IV fluids -clears ok by GI Acute on chronic anemia -Secondary to acute blood loss as well as iron deficiency -Transfuse as needed Generalized weakness -Secondary to above acute anemia and GI bleed -Transfuse -IV fluids Disposition -egd/colonoscopy tomorrow LUZ ALVARADO Oct 02, 2018 14:10
--- NOTE | 2018-10-02 14:49 | PREAC ---
Date/Time of Note Date/Time of Note DATE: 10/02/18 TIME: 14:48 Anesthesia Eval and Record Evaluation Time Pre-Procedure Interview DATE: 10/02/18 TIME: 14:48 Age 52 Sex male NPO: 8 hrs Preoperative diagnosis HEMATOCHEZIA Planned procedure EGD AND COLON Past Medical History Past Medical History: Includes Heme: Anemia Surgery & Anesthesia Issues No known issue Meds Anticoagulation: No Beta Kerry within 24 hr: No Reason Beta Kerry not given: Pt. not on B-Kerry Active Scripts Pantoprazole* (Protonix*) 40 Mg Tablet.dr, 40 MG PO DAILY, #30 TAB Prov:JIMENA STONE INS[employer]ANCE CLAIMS SUPERVISOR 08/26/18 Hydrocortisone Acetate (Anusol-Hc) 25 Mg Supp.rect, 25 MG SC QHS, #10 SUPP.RECT Prov:JIMENA STONE INS[employer] CLAIMS SUPERVISOR 08/26/18 Reported Medications Ferrous Sulfate* (Ferrous Sulfate*) 325 Mg Tabec, 325 MG PO BID, TAB 08/25/18 Current Medications Sodium Chloride 1,000 ml @ 100 mls/hr Q10H IV Last administered on 10/02/18at 12:16; Admin Dose 100 MLS/HR; Start 09/30/18 at 13:36 IV Flush (NS 3 ml) 3 ml PER PROTOCOL IV ; Start 09/30/18 at 14:00 Ondansetron HCl (Zofran Inj) 4 mg Q6H PRN IV NAUSEA AND/OR VOMITING; Start 09/30/18 at 14:00 Acetaminophen (Tylenol Tab) 650 mg Q6H PRN PO PAIN LEVEL 1-3 OR FEVER; Start 09/30/18 at 14:00 Acetaminophen/ Hydrocodone Bitart ([place] (5/325)) 1 tab Q6H PRN PO PAIN LEVEL 4-6; Start 09/30/18 at 14:00 Morphine Sulfate (morphine) 2 mg Q4H PRN IV PAIN LEVEL 7-10; Start 09/30/18 at 14:00 Pantoprazole 80 mg/Sodium Chloride 100 ml @ 10 mls/hr Q10H IV Last administered on 10/02/18at 02:51; Admin Dose 10 MLS/HR; Start 09/30/18 at 15:00 Azithromycin 250 ml @ 250 mls/hr Q24H IVPB Last administered on 10/02/18at 13:19; Admin Dose 250 MLS/HR; Start 10/01/18 at 14:30 Guaifenesin/ Codeine Phosphate (Robitussin Ac Liquid Cup) 5 ml Q4H PRN PO cough Last administered on 10/01/18at 21:31; Admin Dose 5 ML; Start 10/01/18 at 14:00 Meds reviewed: Yes Allergies Coded Allergies: No Known Allergy (Unverified , 08/25/18) Allergies Reviewed: Yes Labs/Studies Labs Reviewed: Reviewed by anesthesiologist Result Diagram: 10/02/181 10/02/18 0451 Laboratory Tests 10/02/18 04:51 test: N/A Pre-procedure Exam Last vitals Vital Signs Date Temp Pulse Resp B/P (MAP) Pulse Ox O2 O2 Flow FiO2 Time Delivery Rate 10/02/18 Simple 14:43 Mask 10/02/18 98.2 74 18 103/57 97 08:17 (72) Airway: Adequate mouth opening, Adequate thyromental dist Mallampati: Mallampati I Teeth: Normal Lung: Normal Heart: Normal ASA Physical Status ASA physical status: 2 Emergency: None Planned Anesthetic General/MAC: MAC Planned Pain Management Parenteral pain med Pre-operative Attestations Prior to commencing anesthesia and surgery, the patient was re-evaluated, there was verification of: *The patient's identity *The results of appropriate recent lab work and preoperative vital signs *The above evaluation not changing prior to induction *Anesthetic plan, risk benefits, alternative and complications discussed with patient/family; questions answered; patient/family understands, accepts and wishes to proceed. DANIEL MORELOS Oct 02, 2018 14:49
[2018-10-02] MEDS ORDERED: PROPOFOL 60 ML ONE (14:57)
[2018-10-02] MEDS ORDERED: ONDANSETRON 4 MG INJ IV PRN (15:00)
[2018-10-02] MEDS ORDERED: LABETALOL HCL 20MG INJ IV PRN (15:00)
[2018-10-02] MEDS ORDERED: EPHEDrine SULFATE 50 MG/5 ML SYG IV PRN (15:00)
[2018-10-02] MEDS ORDERED: hydrALAzine 20 MG INJ IV PRN (15:00)
[2018-10-02] MEDS ORDERED: FENTAnyl 50 MCG/ML VIAL IV PRN ×2 (15:00)
--- NOTE | 2018-10-02 15:23 | HPN ---
Date/Time of Note Date/Time of Note DATE: 10/02/18 TIME: 15:23 Interval H&P Admission Note Pt. seen H&P reviewed: No system changes SPENCER JONES Oct 02, 2018 15:23
--- NOTE | 2018-10-02 16:09 | PAC ---
Date/Time of Note Date/Time of Note DATE: 10/02/18 TIME: 16:09 Post-Anesthesia Notes Post-Anesthesia Note Last documented vital signs Vital Signs Date Temp Pulse Resp B/P (MAP) Pulse Ox O2 O2 Flow FiO2 Time Delivery Rate 10/02/18 98.2 72 18 102/56 99 Nasal 2.0 1608 (71) Cannula Activity: WNL Respiratory function: WNL Cardiovascular function: WNL Mental status: Baseline Pain reasonably controlled: Yes Hydration appropriate: Yes Nausea/Vomiting absent: Yes DANIEL MORELOS Oct 02, 2018 16:09
--- NOTE | 2018-10-02 16:12 | NUR ---
PACU TRANSFERRED TO 2247 IN STABLE COND SP EGD/COLONOSCOPY. A/OX4. DENIES PAIN OR DISCOMFORT . REPORT GIVEN TO VANESSA BELLAMY. Addendum: 10/02/18 at 1632 by GEORGES KNAPP RN Amended: Links added.
--- NOTE | 2018-10-02 16:35 | NUR ---
NURSE NOTE: Report received from MIA Tan (PACU). Pt arrived in the unit. Able to ambulate. AXOX4. No signs of distress. No complaints of discomfort. Vital sign stable. Resumed IV fluids as ordered. Pt given clear liquids. Per pt, he is hungry. Noted cough intermittent, per report of [employer]SE[employer] OIL REFINER may be irritated from the tube for breathing, expected. Will continue to monitor. Addendum: 10/02/18 at 1637 by TEJAL KING RN correction:Prachi
[2018-10-02] MEDS: GUAIFENESIN/CODEINE 5ML CUP PO PRN ×2 (17:42→21:52)
--- NOTE | 2018-10-02 18:03 | NUR ---
NURSE NOTE: No acute changes. Pt is AXOX4. No signs of distress. No complaints of discomfort. Pt only c/o cough which he requested cough medicine. Pt also wanted regular food. No nausea or vomiting noted.Denies any abdominal pain. No bleeding noted. Pt resting in bed. Will continue to monitor. Addendum: 10/02/18 at 1928 by TEJAL KING RN tolerated well clear liquid (2 jello and water).
[2018-10-03 02:14] VITALS: BP 104/62; PULSE 78; RESP 16
[2018-10-03] MEDS: PANTOPRAZOLE IV 80 MG in SOD CHLORIDE 0.9% 100 ML IV SCH (02:15)
[2018-10-03 07:40] VITALS: BP 107/58; PULSE 82; RESP 16
[2018-10-03] MEDS: SOD CHLORIDE 0.9% 1,000 ML IV SCH (09:51)
[2018-10-03] MEDS ORDERED: PANTOPRAZOLE (EC) 40 MG TAB PO ONE (10:30)
--- NOTE | 2018-10-03 12:01 | PN ---
Date/Time of Note Date/Time of Note DATE: 10/03/18 TIME: 11:57 Objective Vitals Vital Signs Date Temp Pulse Resp B/P (MAP) Pulse Ox O2 O2 Flow FiO2 Time Delivery Rate 10/03/18 97.7 82 16 107/58 97 Room Air 07:40 (74) 10/02/18 2.0 16:04 Intake and Output 10/02/18 10/02/18 10/03/18 1515:00 23:00 07:00 IntakeIntake Total 400 ml 790 ml 1130 ml BalanceBalance 400 ml 790 ml 1130 ml Results Result Diagram: 10/03/189 10/03/18448 Medications Medications Current Medications IV Flush (NS 3 ml) 3 ml PER PROTOCOL IV ; Start 09/30/18 at 14:00 Ondansetron HCl (Zofran Inj) 4 mg Q6H PRN IV NAUSEA AND/OR VOMITING; Start 09/30/18 at 14:00 Acetaminophen (Tylenol Tab) 650 mg Q6H PRN PO PAIN LEVEL 1-3 OR FEVER; Start 09/30/18 at 14:00 Acetaminophen/ Hydrocodone Bitart ([place] (5/325)) 1 tab Q6H PRN PO PAIN LEVEL 4-6; Start 09/30/18 at 14:00 Morphine Sulfate (morphine) 2 mg Q4H PRN IV PAIN LEVEL 7-10; Start 09/30/18 at 14:00 Azithromycin 250 ml @ 250 mls/hr Q24H IVPB Last administered on 10/02/18at 13:19; Admin Dose 250 MLS/HR; Start 10/01/18 at 14:30 Guaifenesin/ Codeine Phosphate (Robitussin Ac Liquid Cup) 5 ml Q4H PRN PO cough Last administered on 10/02/18at 21:52; Admin Dose 5 ML; Start 10/01/18 at 14:00 Pantoprazole (Protonix Tab) 40 mg DAILY@06 PO ; Start 10/04/18 at 06:00 VTE Prophylaxis Risk score (from Nsg)>0 risk: 3 SCD applied (from Nsg): Yes Lines/Catheters IV Catheter Type: Bah in Place: No Assessment/Plan Hospital Course subjective patient had a little bit of blood in his bowel movement, Objective Physical exam General: Patient is laying in bed and answers questions appropriately Mentation: Patient is alert and oriented 4, Head: Normocephalic atraumatic Eyes: EOMI, pupils reactive to light Neck: Supple, nontender, midline Respiratory: Clear to auscultation bilaterally Cardiovascular: regular rate, no obvious murmurs Gastrointestinal: non-tender to palpation, bowel sounds heard. Neurological: Moves all extremities spontaneously Skin: No new skin lesions Assessment and plan Acute GI bleed -no source of bleed per egd/colonoscopy -nuclear bleeding scan not revealing, egd/colonoscopy not revealing -stopped IV fluids -return to previous diet -Patient does have a history of hemorrhoids which may be the cause of his bleeding, patient will likely need outpatient follow-up with a general surgeon for possible hemorrhoidectomy or banding. Acute on chronic anemia -Secondary to acute blood loss as well as iron deficiency -Transfuse as needed Generalized weakness-resolving -Secondary to above acute anemia and GI bleed -Transfuse -IVF stopped Upper respiratory viral illness versus developing pneumonia with cough -Patient on azithromycin -Continue cough medication Disposition -Monitor patient's hemoglobin overnight due to mild bloody bowel movements, if stable can discharge in a day or 2 LUZ ALVARADO Oct 03, 2018 12:01
--- NOTE | 2018-10-03 12:30 | PN ---
Date/Time of Note Date/Time of Note DATE: 10/03/18 TIME: 12:30 Assessment/Plan VTE Prophylaxis Risk score (from Ns)>0 risk: 3 SCD applied (from Ns): Yes Pharmacological prophylaxis: other (scds) Pharm contraindication: bleeding Lines/Catheters IV [facility] Type (from [facility] Urinary Cath still in place: No Assessment/Plan Hospital Course Assessment: Chronic anemia with recurrent GI bleed EGD 10/02/18 Normal EGD Colonoscopy 10/02/18 Melanosis coli Hemorrhoids, first-degree Plan: Nuclear med bleeding scan- negative Ct enterography to complete GI work-up History with recurring hematochezia and anemia recommend general surgery consult for possible hemorrhoidectomy Monitor labs transfuse as needed Patient seen in collaboration with Dr. Hernandez/Jerman Subjective: Course reviewed with nursing staff Patient interviewed and examined All labs, imaging and other results reviewed Hemoglobin trending down. small amt of rectal bleeding noted today. Pt denies n/v, discussed results and plan for today Pt verbalized understanding and is agreeable. PHYSICAL EXAMINATION: GENERAL: Well developed, well nourished, alert & oriented x 3, in no acute distress,pale SKIN: No lesions. HEAD: Normocephalic, atraumatic, no tenderness. EYES: Pupils equal reactive to light. EARS/NOSE AND THROAT: Ears normal, nose normal. NECK: Supple, no masses, thyroid normal CHEST: Inspection within normal limits. CARDIOVASCULAR: Heart: Regular rate and rhythm. RESPIRATORY: Lungs clear to auscultation GASTROINTESTINAL AND LIVER: Abdomen: Soft, non tenderness, non-distended, no hernias, no masses, no organomegaly, no ascites, no guarding, no rebound tenderness, normoactive bowel sounds. Rectal: Deferred Result Diagram: 10/03/18 0449 10/03/18 0449 Results 24hrs Laboratory Tests Test 10/03/18 04:49 White Blood Count 5.2 Red Blood Count 3.79 L Hemoglobin 7.6 L Hematocrit 27.6 L Mean Corpuscular Volume 72.8 L Mean Corpuscular Hemoglobin 20.1 L Mean Corpuscular Hemoglobin Concent 27.5 L Red Cell Distribution Width 22.9 H Platelet Count 348 Mean Platelet Volume 10.4 Immature Granulocytes % 0.200 Neutrophils % 66.3 Lymphocytes % 21.7 Monocytes % 7.0 Eosinophils % 4.4 Basophils % 0.4 Nucleated Red Blood Cells % 0.0 Immature Granulocytes # 0.010 Neutrophils # 3.4 Lymphocytes # 1.1 Monocytes # 0.4 Eosinophils # 0.2 Basophils # 0.0 Nucleated Red Blood Cells # 0.0 Sodium Level 140 Potassium Level 3.8 Chloride Level 107 Carbon Dioxide Level 25 Anion Gap 8 Blood Urea Nitrogen 13 Creatinine 0.84 Est Glomerular Filtrat Rate mL/min > 60 Glucose Level 96 Calcium Level 8.8 Phosphorus Level 4.2 Magnesium Level 2.2 Exam/Review of Systems Vital Signs Vitals Vital Signs Date Temp Pulse Resp B/P (MAP) Pulse Ox O2 O2 Flow FiO2 Time Delivery Rate 10/03/18 97.7 82 16 107/58 97 Room Air 07:40 (74) 10/02/18 2.0 16:04 Intake and Output 10/02/18 10/02/18 10/03/18 1515:00 23:00 07:00 IntakeIntake Total 400 ml 790 ml 1130 ml BalanceBalance 400 ml 790 ml 1130 ml Medications Medications Current Medications IV Flush (NS 3 ml) 3 ml PER PROTOCOL IV ; Start 09/30/18 at 14:00 Ondansetron HCl (Zofran Inj) 4 mg Q6H PRN IV NAUSEA AND/OR VOMITING; Start 09/30/18 at 14:00 Acetaminophen (Tylenol Tab) 650 mg Q6H PRN PO PAIN LEVEL 1-3 OR FEVER; Start 09/30/18 at 14:00 Acetaminophen/ Hydrocodone Bitart ([place] (5/325)) 1 tab Q6H PRN PO PAIN LEVEL 4-6; Start 09/30/18 at 14:00 Morphine Sulfate (morphine) 2 mg Q4H PRN IV PAIN LEVEL 7-10; Start 09/30/18 at 14:00 Azithromycin 250 ml @ 250 mls/hr Q24H IVPB Last administered on 10/02/18at 13:19; Admin Dose 250 MLS/HR; Start 10/01/18 at 14:30 Guaifenesin/ Codeine Phosphate (Robitussin Ac Liquid Cup) 5 ml Q4H PRN PO cough Last administered on 10/02/18at 21:52; Admin Dose 5 ML; Start 10/01/18 at 14:00 Pantoprazole (Protonix Tab) 40 mg DAILY@06 PO ; Start 10/04/18 at 06:00 JEET VALDOVINOS Oct 03, 2018 12:30
[2018-10-03] MEDS ORDERED: BARIUM SULF 2% 450 ML BTL (BERRY SMOOTHIE) PO ONE (13:00)
[2018-10-03] MEDS: AZITHROMYCIN 500MG/NS (PMX) 250 ML IVPB SCH (13:17)
[2018-10-03 14:35] VITALS: BP 106/68; PULSE 74; RESP 18
--- NOTE | 2018-10-03 16:13 | NUR ---
Patient left the unit for CT scan as ordered, transported via wheelchair. IV patent and intact. Left the unit with no SOB or distress.
[2018-10-03] MEDS ORDERED: BARIUM SULFATE 0.1% 450 ML BTL (VOLUMEN) PO ONE (16:26)
[2018-10-03] MEDS ORDERED: SOD CHLORIDE 0.9% 100 ML ONE (17:21)
[2018-10-03] MEDS ORDERED: IOHEXOL 100 ML ONE (17:21)
[2018-10-03] MEDS ORDERED: GLUCAGON 1 MG INJ IV ONE (17:30)
[2018-10-03] MEDS ORDERED: IOHEXOL 350MG/ML 50 ML BTL ONE (17:33)
--- NOTE | 2018-10-03 17:58 | NUR ---
patient came back from CT, no SOB or distress, Denies any pain or discomforts. Called Gabrielle serrano and informed. Received new order from Dr. Womack to change diet back to regular. Encouraged patient to drink more fluids. Patient verbalized understanding.
--- NOTE | 2018-10-03 18:00 | NUR ---
NURSE NOTES: patient alert and oriented x 4, able to make needs known remained stable throughout the shift with no acute changes noted. IV patent and intact. Skin assessed, no changes noted. assessed and reassessed for pain, denies any pain or discomforts. All due medications were given, tolerated well. Safety precautions observed, hourly rounding done, bed alarm and bed brakes on for safety. Call light and telephone within reach at all times. Encouraged to use call light or telephone whenever assistance is needed for safety. Will continue to monitor. Will endorse accordingly to next shift for [id number] of care.
--- NOTE | 2018-10-03 18:01 | NUR ---
Procedure Ordered:CT ENTEROGRAPHY Reason for Exam Today: ANEMIA. R/O SB DISEASE Previous Exams: Allergies:NKDA Current Medications Taken: Glucophage ( ) Metformin ( ) Previous reaction to contrast media: Yes ( ) No ( X) : Yes ( ) No (X ) Asthma: Yes ( ) No (X ) Diabetes: Yes ( ) No (X ) Myeloma: Yes ( ) No ( X) Heart Disease: Yes ( X) No ( ) Cardiac Disease: Yes ( ) No ( X) Kidney Disease: Yes ( ) No ( X Vascular Disease: Yes ( ) No (X ) Patient Teaching done: Yes ( ) No ( ) Dietetic Tech Used: Yes ( ) No ( ) Name of Dietetic Tech: Language Used: As part of the test requested by your doctor, contrast media may be injected into your vein while the x-rays are being taken. Occasionally, reactions from IV contrast may occur. The physician and staff of this hospital are trained to treat these reactions. Select the type of Contrast that will be given to patient: Isovue 300 ( ) Isovue 370 ( ) Visipaque ( ) Cystografin ( ) OMNIPAQUE 350 (X) Gastrographin ( ) Redi-cat ( ) Volumen ( ) Amount of contrast to be given: 120CC IV ( X) PO ( ) Date given:10/03/18 Lab Values: BUN: 13 Creatinine:0.84 Reason why contrast cannot be given: Location of patient pre-procedure:[facility] Location of patient post procedure:[facility]247 PT TOLERATED IV CONTRAST INJECTION WELL
[2018-10-03 20:00] VITALS: BP 107/58; PULSE 92; RESP 18
[2018-10-04 02:00] VITALS: BP 91/59; PULSE 68; RESP 17
--- NOTE | 2018-10-04 03:14 | NUR ---
191 Pt received aaox4, respirations regular and even, responsive to verbal stimuli, no s/s of distress noted. Pt oriented to oncoming nurse and [facility] safety protocols including hourly rounding and an active bed alarm. Pt verbalized understanding & denies further needs at this time. 2200 Pt resting comfortably in bed, no scheduled medication to administer. Pt denies needs at this time. Non skin socks applied to prevent falls, bed alarm active and functioning. 0000 Pt resting, eyes close, respirations regular and even. Nursing will continue to monitor. Addendum: 10/04/18 at 0555 by JACKELIN BARTHOLOMEW RN 0300 Pt asleep. 0600 Pt slept well throughout the night, denies pain at this time. Scheduled medication administered whole with water w/o difficulty. Nursing will continue to monitor and endorse to morning shift to ensure continuity of quality care.
[2018-10-04] MEDS: PANTOPRAZOLE (EC) 40 MG TAB PO SCH (05:37)
[2018-10-04 08:09] VITALS: BP 104/65; PULSE 70; RESP 18
[2018-10-04 15:00] VITALS: BP 122/73; PULSE 78; RESP 16
--- NOTE | 2018-10-04 15:23 | PN ---
Date/Time of Note Date/Time of Note DATE: 10/04/18 TIME: 15:18 Assessment/Plan VTE Prophylaxis Risk score (from [facility] [place])>0 risk: 3 SCD applied (from Ns): Yes Pharmacological prophylaxis: other (scds) Lines/Catheters IV Catheter Type (from [facility]): Saline Lock Urinary Cath still in place: No Assessment/Plan Hospital Course Assessment: Chronic anemia with recurrent GI bleed EGD 10/02/18 Normal EGD Colonoscopy 10/02/18 Melanosis coli Hemorrhoids, first-degree Plan: Ct enterography - neg HGB 7.5 today pt continues to c/o some small amount of rectal bleeding will transfuse 1 unit PRBCs today History with recurring hematochezia and anemia recommend general surgery consult for possible hemorrhoidectomy- to be completed as in-pt if possible Start Anusol sup bid x5 days Patient seen in collaboration with Dr. Hernandez/Jerman Subjective: Course reviewed with nursing staff Patient interviewed and examined All labs, imaging and other results reviewed Pt continues to c/o small amount of rectal bleeding will transfuse 1 unit PRBCs today, maintain close observation Rec sx consult. PHYSICAL EXAMINATION: GENERAL: Well developed, well nourished, alert & oriented x 3, in no acute distress,pale SKIN: No lesions. HEAD: Normocephalic, atraumatic, no tenderness. EYES: Pupils equal reactive to light. EARS/NOSE AND THROAT: Ears normal, nose normal. NECK: Supple, no masses, thyroid normal CHEST: Inspection within normal limits. CARDIOVASCULAR: Heart: Regular rate and rhythm. RESPIRATORY: Lungs clear to auscultation GASTROINTESTINAL AND LIVER: Abdomen: Soft, non tenderness, non-distended, no hernias, no masses, no organomegaly, no ascites, no guarding, no rebound tenderness, normoactive bowel sounds. Rectal: Deferred Result Diagram: 10/04/18 0439 10/04/18 0439 Results 24hrs Laboratory Tests Test 10/04/18 04:39 10/04/18 06:34 White Blood Count 4.9 Red Blood Count 3.77 L Hemoglobin 7.5 L Hematocrit 27.3 L Mean Corpuscular Volume 72.4 L Mean Corpuscular Hemoglobin 19.9 L Mean Corpuscular Hemoglobin Concent 27.5 L Red Cell Distribution Width 23.5 H Platelet Count 338 Mean Platelet Volume 10.1 Immature Granulocytes % 0.200 Neutrophils % 63.0 Lymphocytes % 26.2 Monocytes % 5.7 Eosinophils % 4.1 Basophils % 0.8 Nucleated Red Blood Cells % 0.0 Immature Granulocytes # 0.010 Neutrophils # 3.1 Lymphocytes # 1.3 Monocytes # 0.3 Eosinophils # 0.2 Basophils # 0.0 Nucleated Red Blood Cells # 0.0 Sodium Level 138 Potassium Level 4.0 Chloride Level 102 Carbon Dioxide Level 27 Anion Gap 9 Blood Urea Nitrogen 11 Creatinine 0.86 Est Glomerular Filtrat Rate mL/min > 60 Glucose Level 87 Calcium Level 9.0 Phosphorus Level 4.5 Magnesium Level 2.1 Lab Scanned Report BLOOD TRANSFUSION Exam/Review of Systems Vital Signs Vitals Vital Signs Date Temp Pulse Resp B/P (MAP) Pulse Ox O2 O2 Flow FiO2 Time Delivery Rate 10/04/18 99.0 70 18 104/65 95 08:09 (78) 10/04/18 Room Air 02:00 10/02/18 2.0 16:04 Intake and Output 10/03/18 10/03/18 10/04/18 1515:00 23:00 07:00 IntakeIntake Total 1480 ml BalanceBalance 1480 ml Medications Medications Current Medications IV Flush (NS 3 ml) 3 ml PER PROTOCOL IV ; Start 09/30/18 at 14:00 Ondansetron HCl (Zofran Inj) 4 mg Q6H PRN IV NAUSEA AND/OR VOMITING; Start 09/30/18 at 14:00 Acetaminophen (Tylenol Tab) 650 mg Q6H PRN PO PAIN LEVEL 1-3 OR FEVER; Start 09/30/18 at 14:00 Acetaminophen/ Hydrocodone Bitart ([place] (5/325)) 1 tab Q6H PRN PO PAIN LEVEL 4-6; Start 09/30/18 at 14:00 Morphine Sulfate (morphine) 2 mg Q4H PRN IV PAIN LEVEL 7-10; Start 09/30/18 at 14:00 Azithromycin 250 ml @ 250 mls/hr Q24H IVPB Last administered on 10/03/18at 13:17; Admin Dose 250 MLS/HR; Start 10/01/18 at 14:30 Guaifenesin/ Codeine Phosphate (Robitussin Ac Liquid Cup) 5 ml Q4H PRN PO cough Last administered on 10/02/18at 21:52; Admin Dose 5 ML; Start 10/01/18 at 14:00 Pantoprazole (Protonix Tab) 40 mg DAILY@06 PO Last administered on 10/04/18at 05:37; Admin Dose 40 MG; Start 10/04/18 at 06:00 Ferric Sodium Gluconate Complex 125 mg/Sodium Chloride 100 ml @ 100 mls/hr DAILY@1300 IVPB ; Start 10/04/18 at 15:30; Stop 10/06/18 at 13:59; Status JEET VINSON Oct 04, 2018 15:23
[2018-10-04] MEDS: AZITHROMYCIN 500MG/NS (PMX) 250 ML IVPB SCH (16:12)
--- NOTE | 2018-10-04 16:32 | PN ---
Date/Time of Note Date/Time of Note DATE: 10/04/18 TIME: 16:30 Assessment/Plan VTE Prophylaxis Risk score (from Ns)>0 risk: 3 SCD applied (from Ns): Yes Pharmacological prophylaxis: heparin Lines/Catheters IV [facility] Type (from [facility] Saline Lock Urinary Cath still in place: No Assessment/Plan Hospital Course Occult GI bleed leading to acute on chronic blood loss anemia: - Transfuse 1 unit PRBCs - Give IV iron Result Diagram: 10/04/1843810/04/18438 Results 24hrs Laboratory Tests Test 10/04/18 04:39 10/04/18 06:34 White Blood Count 4.9 Red Blood Count 3.77 L Hemoglobin 7.5 L Hematocrit 27.3 L Mean Corpuscular Volume 72.4 L Mean Corpuscular Hemoglobin 19.9 L Mean Corpuscular Hemoglobin Concent 27.5 L Red Cell Distribution Width 23.5 H Platelet Count 338 Mean Platelet Volume 10.1 Immature Granulocytes % 0.200 Neutrophils % 63.0 Lymphocytes % 26.2 Monocytes % 5.7 Eosinophils % 4.1 Basophils % 0.8 Nucleated Red Blood Cells % 0.0 Immature Granulocytes # 0.010 Neutrophils # 3.1 Lymphocytes # 1.3 Monocytes # 0.3 Eosinophils # 0.2 Basophils # 0.0 Nucleated Red Blood Cells # 0.0 Sodium Level 138 Potassium Level 4.0 Chloride Level 102 Carbon Dioxide Level 27 Anion Gap 9 Blood Urea Nitrogen 11 Creatinine 0.86 Est Glomerular Filtrat Rate mL/min > 60 Glucose Level 87 Calcium Level 9.0 Phosphorus Level 4.5 Magnesium Level 2.1 Lab Scanned Report BLOOD TRANSFUSION Subjective 24 Hr Interval Summary Free Text/Dictation Tells me he has had this problme for 3 years No evidence of bleeding on nuc med scan or endoscopy Exam/Review of Systems Vital Signs Vitals Vital Signs Date Temp Pulse Resp B/P (MAP) Pulse Ox O2 O2 Flow FiO2 Time Delivery Rate 10/04/18 98.2 78 16 122/73 97 15:00 (89) 10/04/18 Room Air 02:00 10/02/18 2.0 16:04 Intake and Output 10/03/18 10/03/18 10/04/18 1515:00 23:00 07:00 IntakeIntake Total 1480 ml BalanceBalance 1480 ml Medications Medications Current Medications IV Flush (NS 3 ml) 3 ml PER PROTOCOL IV ; Start 09/30/18 at 14:00 Ondansetron HCl (Zofran Inj) 4 mg Q6H PRN IV NAUSEA AND/OR VOMITING; Start 09/30/18 at 14:00 Acetaminophen (Tylenol Tab) 650 mg Q6H PRN PO PAIN LEVEL 1-3 OR FEVER; Start 09/30/18 at 14:00 Acetaminophen/ Hydrocodone Bitart ([place] (5/325)) 1 tab Q6H PRN PO PAIN LEVEL 4-6; Start 09/30/18 at 14:00 Morphine Sulfate (morphine) 2 mg Q4H PRN IV PAIN LEVEL 7-10; Start 09/30/18 at 14:00 Azithromycin 250 ml @ 250 mls/hr Q24H IVPB Last administered on 10/04/18at 16:1 2; Admin Dose 250 MLS/HR; Start 10/01/18 at 14:30 Guaifenesin/ Codeine Phosphate (Robitussin Ac Liquid Cup) 5 ml Q4H PRN PO cough Last administered on 10/02/18at 21:52; Admin Dose 5 ML; Start 10/01/18 at 14:00 Pantoprazole (Protonix Tab) 40 mg DAILY@06 PO Last administered on 10/04/18at 05:37; Admin Dose 40 MG; Start 10/04/18 at 06:00 Ferric Sodium Gluconate Complex 125 mg/Sodium Chloride 100 ml @ 100 mls/hr DAILY@1300 IVPB ; Start 10/04/18 at 16:30; Stop 10/06/18 at 13:59 Hydrocortisone (Anusol-Hc Supp) 25 mg BID [place] ; Start 10/04/18 at 16:30 LYUDMILA HANCOCK MD Oct 04, 2018 16:32
--- NOTE | 2018-10-04 17:50 | NUR ---
End of shift- No active bleeding. Tolerating regular diet. No pain or nausea. Blood not ready yet to transfuse.
[2018-10-04] MEDS: SOD FERRIC GLUC COMPLX 125 MG in SOD CHLORIDE 0.9% 100 ML IVPB SCH (18:04)
[2018-10-04] MEDS: HYDROCORTISONE 25 MG SUPP PR SCH ×2 (18:04→22:16)
[2018-10-04 20:00] VITALS: BP 109/62; PULSE 77; RESP 18
--- NOTE | 2018-10-04 20:56 | NUR ---
1914 Pt received aaox4, respirations regular and even, responsive to verbal stimuli, no s/s of distress noted. Pt oriented to oncoming nurse and [facility] safety protocols including hourly rounding and an active bed alarm. Pt verbalized understanding & denies further needs at this time. Iron infusing as ordered, IV line patent. 2029 Pt resting comfortably in bed, no scheduled medication to administer. Pt denies needs at this time, denies pain. Non skin socks applied to prevent falls, bed alarm active and functioning. Pt educated on Transfusion order for 1 unit PRBC, pt informed that as per Blood Bank, pt has developed antibodies. Pt educated, denies further questions at this time. Nurse informed via blood bank, Blood will not be available for transfusion for approx. 4 hours. Addendum: 10/05/18 at 0128 by JACKELIN BARTHOLOMEW RN 0110 Blood received from Blood Bank. Vital signs stable; packed cells checked by myself and 2nd RN Jevon to ensure pt safety. 2nd check complete. 0115 Packed cells hung. Pt educated on adverse effects and symptoms which may occur and will warrant a need to stop the blood transfusion including chills,back pain, & difficulty breathing. Pt verbalized understanding. Addendum: 10/05/18 at 0220 by JACKELIN BARTHOLOMEW RN 0130 Vitals stable, no s/s of adverse transfusion reaction. 0145 Vitals stable, no s/s of adverse transfusion reaction pt states, "I feel okay." Nursing will continue to monitor as per transfusion protocol. Addendum: 10/05/18 at 0606 by JACKELIN BARTHOLOMEW RN 0500 TRANSFUSION COMPLETE. 0600 Vital signs remain stable, pt denies any c/o pain or discomfort. Respirations regular and even. No significant changes noted throughout the shift. Nursing will continue to monitor and endorse to morning shift to ensure pt safety and continuity of care.
[2018-10-05 01:10] VITALS: BP 109/65; PULSE 67; RESP 18
[2018-10-05 01:30] VITALS: BP 109/61; PULSE 67; RESP 18
[2018-10-05 01:45] VITALS: BP 105/59; PULSE 65; RESP 18
[2018-10-05] MEDS: PANTOPRAZOLE (EC) 40 MG TAB PO SCH (05:20)
[2018-10-05 08:41] VITALS: BP 105/64; PULSE 65; RESP 18
[2018-10-05] MEDS: HYDROCORTISONE 25 MG SUPP PR SCH (08:45)
--- NOTE | 2018-10-05 11:09 | PN ---
Date/Time of Note Date/Time of Note DATE: 10/05/18 TIME: 11:06 Assessment/Plan VTE Prophylaxis Risk score (from Ns)>0 risk: 2 SCD applied (from Ns): Yes Pharmacological prophylaxis: other (scds) Lines/Catheters IV [facility]from [facility] Peripheral IV Urinary Cath still in place: No Assessment/Plan Hospital Course Assessment: Chronic anemia with recurrent GI bleed, unclear etiology EGD 10/02/18 Normal EGD Colonoscopy 10/02/18 Melanosis coli Hemorrhoids, first-degree Plan: Ct enterography - neg, Bleeding scan- neg Start Anusol sup bid x5 days After discharge pt to f/u with GI in 1 week Patient seen in collaboration with Dr. Hernandez/Jerman Subjective: Course reviewed with nursing staff Patient interviewed and examined All labs, imaging and other results reviewed Pt states he has been dealing iwth sx for the past 3 years, he has seen a field sampling technician, GI, and PCP At one point pt was told he had AVMs however none seen on this colonoscopy or EGD. HGb stable today. Pt to f/u in clinic to review pathology- and poss ref to colon-rectal sx for possible hemorrhoid treatment PHYSICAL EXAMINATION: GENERAL: Well developed, well nourished, alert & oriented x 3, in no acute distress,pale SKIN: No lesions. HEAD: Normocephalic, atraumatic, no tenderness. EYES: Pupils equal reactive to light. EARS/NOSE AND THROAT: Ears normal, nose normal. NECK: Supple, no masses, thyroid normal CHEST: Inspection within normal limits. CARDIOVASCULAR: Heart: Regular rate and rhythm. RESPIRATORY: Lungs clear to auscultation GASTROINTESTINAL AND LIVER: Abdomen: Soft, non tenderness, non-distended, no her nias, no masses, no organomegaly, no ascites, no guarding, no rebound tenderness, normoactive bowel sounds. Rectal: Deferred Result Diagram: 10/05/18 0515 10/04/18 0439 Results 24hrs Laboratory Tests Test 10/05/18 05:15 White Blood Count 5.7 Red Blood Count 3.98 L Hemoglobin 8.4 L Hematocrit 29.8 L Mean Corpuscular Volume 74.9 L Mean Corpuscular Hemoglobin 21.1 L Mean Corpuscular Hemoglobin Concent 28.2 L Red Cell Distribution Width 24.1 H Platelet Count 336 Mean Platelet Volume 10.2 Immature Granulocytes % 0.200 Neutrophils % 64.1 Lymphocytes % 26.0 Monocytes % 6.0 Eosinophils % 3.0 Basophils % 0.7 Nucleated Red Blood Cells % 0.0 Immature Granulocytes # 0.010 Neutrophils # 3.7 Lymphocytes # 1.5 Monocytes # 0.3 Eosinophils # 0.2 Basophils # 0.0 Nucleated Red Blood Cells # 0.0 Exam/Review of Systems Vital Signs Vitals Vital Signs Date Temp Pulse Resp B/P (MAP) Pulse Ox O2 O2 Flow FiO2 Time Delivery Rate 10/05/18 98.4 65 18 105/64 97 Room Air 08:41 (78) 10/02/18 2.0 16:04 Intake and Output 10/04/18 10/04/18 10/05/18 1515:00 23:00 07:00 IntakeIntake Total 800 ml 490 ml 350 ml BalanceBalance 800 ml 490 ml 350 ml Medications Medications Current Medications IV Flush (NS 3 ml) 3 ml PER PROTOCOL IV ; Start 09/30/18 at 14:00 Ondansetron HCl (Zofran Inj) 4 mg Q6H PRN IV NAUSEA AND/OR VOMITING; Start 09/30/18 at 14:00 Acetaminophen (Tylenol Tab) 650 mg Q6H PRN PO PAIN LEVEL 1-3 OR FEVER; Start 09/30/18 at 14:00 Acetaminophen/ Hydrocodone Bitart ([place] (5/325)) 1 tab Q6H PRN PO PAIN LEVEL 4-6; Start 09/30/18 at 14:00 Morphine Sulfate (morphine) 2 mg Q4H PRN IV PAIN LEVEL 7-10; Start 09/30/18 at 14:00 Azithromycin 250 ml @ 250 mls/hr Q24H IVPB Last administered on 10/04/18at 16:12; Admin Dose 250 MLS/HR; Start 10/01/18 at 14:30 Guaifenesin/ Codeine Phosphate (Robitussin Ac Liquid Cup) 5 ml Q4H PRN PO cough Last administered on 10/02/18at 21:52; Admin Dose 5 ML; Start 10/01/18 at 14:00 Pantoprazole (Protonix Tab) 40 mg DAILY@06 PO Last administered on 10/05/18at 05:20; Admin Dose 40 MG; Start 10/04/18 at 06:00 Ferric Sodium Gluconate Complex 125 mg/Sodium Chloride 100 ml @ 100 mls/hr DAILY@1300 IVPB Last administered on 10/04/18at 18:04; Admin Dose 100 MLS/HR; Start 10/04/18 at 16:30; Stop 10/06/18 at 13:59 Hydrocortisone (Anusol-Hc Supp) 25 mg BID [place] Last administered on 10/05/18at 08:45; Admin Dose 25 MG; Start 10/04/18 at 16:30 JEET VALDOVINOS Oct 05, 2018 11:09
--- NOTE | 2018-10-05 12:40 | PDOCDIS ---
Discharge Instructions DIAGNOSIS Discharge Diagnosis Occult GI bleeding Iron deficiency anemia CONDITION [id number] Patient Condition: [id number] Stable FOLLOW UP/APPOINTMENTS Follow-up Plan Keep taking iron supplementation Make an appointment to see Dr Stoll in clinic. His number is LYUDMILA HANCOCK MD Oct 05, 2018 12:40
[2018-10-05] MEDS: SOD FERRIC GLUC COMPLX 125 MG in SOD CHLORIDE 0.9% 100 ML IVPB SCH (13:50)
--- NOTE | 2018-10-05 13:54 | DS ---
Date/Time of Note Date/Time of Note DATE: 10/05/18 TIME: 13:40 Discharge Summary Admission/Discharge Info Admit Date/Time Sep 30, 2018 at 13:10 Discharge Date/Time Discharge Diagnosis Occult GI bleeding Iron deficiency anemia Patient Condition: Stable Hospital Course Patient found to have iron deficicency anemia and reported hematochezia. Has been having this problem for years and sounds like had AVMs diagnosed at [facility] previously. Here underwent upper/lower endocopy and no source of bleeding was found. Then went nuclear medicine scan and again no source found. Rectal exam was unremarkable. He was transfused 1 unit PRBCs and IV iron. He was encouraged to follow up as an outpatinet for managmeent of occult bleedign and iron deficiency Home Meds Active Scripts Pantoprazole* (Protonix*) 40 Mg Tablet., 40 MG PO DAILY, #30 TAB Prov:JIMENA STONE MACHINE FITTER 08/26/18 Hydrocortisone Acetate (Anusol-Hc) 25 Mg Supp.rect, 25 MG [place] QHS, #10 SUPP.RECT Prov:JIMENA STONE MACHINE FITTER 08/26/18 Reported Medications Ferrous Sulfate* (Ferrous Sulfate*) 325 Mg Tabec, 325 MG PO BID, TAB 08/25/18 Follow-up Plan Keep taking iron supplementation Make an appointment to see Dr Stoll in clinic. His number is Primary Care Provider Care Physician No Primary Pending Labs Laboratory Tests Test 10/05/18 05:15 White Blood Count 5.7 10^3/ul (4.8-10.8) Red Blood Count 3.98 10^6/ul (4.70-6.10) Hemoglobin 8.4 g/dl (14.0-18.0) Hematocrit 29.8 % (42.0-52.0) Mean Corpuscular Volume 74.9 fl (82.0-101.0) Mean Corpuscular Hemoglobin 21.1 pg (29.0-33.0) Mean Corpuscular Hemoglobin Concent 28.2 g/dl (32.0-37.0) Red Cell Distribution Width 24.1 % (11.5-14.5) Platelet Count 336 10^3/UL (140-415) Mean Platelet Volume 10.2 fl (7.4-10.4) Immature Granulocytes % 0.200 % (0.001-0.429) Neutrophils % 64.1 % (39.0-77.0) Lymphocytes % 26.0 % (15.0-51.0) Monocytes % 6.0 % (0.0-11.0) Eosinophils % 3.0 % (0.0-7.0) Basophils % 0.7 % (0.0-2.0) Nucleated Red Blood Cells % 0.0 /100WBC (0.0-0.0) Immature Granulocytes # 0.010 10^3/ul (0.0-0.031) Neutrophils # 3.7 10^3/ul (1.6-7.5) Lymphocytes # 1.5 10^3/ul (0.8-2.9) Monocytes # 0.3 10^3/ul (0.3-0.9) Eosinophils # 0.2 10^3/ul (0.0-0.5) Basophils # 0.0 10^3/ul (0.0-0.1) Nucleated Red Blood Cells # 0.0 10^3/ul (0.0-0.0) LYUDMILA HANCOCK MD Oct 05, 2018 13:54
--- NOTE | 2018-10-05 14:28 | NUR ---
RN Notes: DR. Wilkerson medically cleared pt to go home with order to discharge home after Iron medication administration. Pt and family aware regarding discharge, [facility] also cleared pt to go home. Discharge instruction provided with helped of billing adjudicator Almaz Shukla, reeducated regarding need follow up appt with Dr. Stoll 1 week after discharge and need to continue iron home med as per DR. Wilkerson also provided written education regrading GI bleed, pt verbalized understanding and discharge paperwork. Belonging list was signed pt has his eyeglasses and cane. Pt remains alert and oriented, ambulatory with steady gait, afebrile, breathing even and unlabored, no acute distress noted, denies pain/discomfort, no n/v noted, no active bleeding noted. Will be discharge after Iron IV meds completed. Needs attended. Addendum: 10/05/18 at 1536 by SIGIFREDO PHELPS RN IV Iron completed tolerated well, IV line removed tip intact, no active bleeding noted covered with dry dressing. Called [facility] and helped pt in the lobby. Pt left the unit in stable condition accompanied by his , pt brought his cane, eyeglasses and discharge paperwork upon discharge.
[2018-10-05 15:18] VITALS: BP 113/69; PULSE 68; RESP 18
== END 2018-10-05 15:27 | disposition home or self-care (01) | DRG 378 ==
LOC: E/R 10:53 → PP2 13:10
PROVIDERS: ADMIT Internal Medicine; ATTEND Internal Medicine
PROC: 30233N1 Transfusion of Nonautologous Red Blood Cells into Peripheral Vein, Percutaneous Approach (ICD-10-PCS; 2018-09-30)
PROC: 0DJ08ZZ Inspection of Upper Intestinal Tract, Via Natural or Artificial Opening Endoscopic (ICD-10-PCS; principal; 2018-10-02 15:30)
PROC: 0DJD8ZZ Inspection of Lower Intestinal Tract, Via Natural or Artificial Opening Endoscopic (ICD-10-PCS; 2018-10-02 15:30)
DX: K92.2 Gastrointestinal hemorrhage, unspecified (principal); D62 Acute posthemorrhagic anemia; K63.89 Other specified diseases of intestine; K64.0 First degree hemorrhoids
CPT/HCPCS: 36415; 36430; 71045; 74177; 78278; 80048; 80053; 83036; 83735; 84100; 84484; 85014; 85018; 85025; 85610; 85730; 86850; 86870; 86900; 86901; 86920; 87081; 93005; 96374; A9560; C9113; J0456; J1610; J2916; J7030; J7040; P9016; Q9967

== ENCOUNTER 2018-11-10 07:28 | Day surgery (SDC) | payer OTHER ==
[~2018-11-10] VITALS: Ht 165.1 cm; Wt 86.0 kg
[2018-11-10] VITALS (11 sets, daily range): BP systolic 110–140; BP diastolic 60–77; PULSE 56–74; RESP 12–20; Ht 165.1 cm; Wt 86.0 kg
--- NOTE | 2018-11-10 08:05 | HPN ---
Date/Time of Note Date/Time of Note DATE: 11/10/18 TIME: 08:05 Interval H&P Admission Note Pt. seen H&P reviewed: No system changes JB LR MD Nov 10, 2018 08:05
[2018-11-10] MEDS ORDERED: SOD CHLORIDE 0.9% 1,000 ML IV SCH (08:30)
[2018-11-10] MEDS ORDERED: POLYMYXIN/BACITRACIN 1L IRRIG IRR ONE (08:30)
[2018-11-10] MEDS ORDERED: MIDAZOLAM 1 MG/ML 2 ML INJ ONE (08:54)
[2018-11-10] MEDS ORDERED: CEFAZOLIN 1 GM/50 ML (PMX) 50 ML IVPB ONE (08:54)
[2018-11-10] MEDS ORDERED: FENTAnyl 50 MCG/ML VIAL ONE ×2 (08:54→10:25)
[2018-11-10] MEDS ORDERED: HEPARIN 1000 UNITS/ML 10 ML INJ ONE (08:54)
[2018-11-10] MEDS ORDERED: LIDOCAINE 1%/EPI (1:100,000) (MDV) 20 ML ONE (08:54)
[2018-11-10] MEDS ORDERED: HYDROCODONE/APAP (5/325) TAB PO PRN (11:00)
== END 2018-11-10 13:00 | disposition home or self-care (01) ==
LOC: SDS 07:28
PROVIDERS: ATTEND Internal Medicine Hematology & Oncology
DX: D50.9 Iron deficiency anemia, unspecified (principal)
CPT/HCPCS: 36561; 76942; C1788; J0690; J1644; J2250; J3010; Z7610

== ENCOUNTER 2019-01-04 09:12 | Inpatient (IN) | payer OTHER ==
[~2019-01-04] VITALS: Ht 165.1 cm; Wt 86.4 kg
[2019-01-04] MEDS: SOD CHLORIDE 0.45% 1,000 ML IV SCH (02:13)
[2019-01-04] MEDS ORDERED: PANTOPRAZOLE 40 MG INJ IV STA (10:23)
[2019-01-04] MEDS ORDERED: SOD CHLORIDE 0.9% 0 ML IV ONE (11:09)
[2019-01-04] MEDS ORDERED: ACETAMINOPHEN 325 MG TAB PO ONE (11:30)
[2019-01-04] MEDS ORDERED: ONDANSETRON 4 MG INJ IV PRN ×2 (12:00→13:00)
[2019-01-04] MEDS ORDERED: ACETAMINOPHEN 325 MG TAB PO PRN (12:00)
[2019-01-04] MEDS ORDERED: SOD CHLORIDE 0.9% 1,000 ML IV STA (12:26)
[2019-01-04] MEDS ORDERED: HYDROCODONE/APAP (5/325) TAB PO PRN (13:00)
[2019-01-04] MEDS ORDERED: MAGNESIUM HYDROXIDE 30ML CUP PO PRN (13:00)
[2019-01-04] MEDS ORDERED: NACL 0.9% 3 ML SYG IV SCH (13:00)
[2019-01-04] MEDS ORDERED: hydrALAzine 20 MG INJ IV PRN (13:00)
[2019-01-04] MEDS ORDERED: OCTREOTIDE 1 MG in DEXTROSE 5% 95 ML IV SCH (13:00)
[2019-01-04] MEDS ORDERED: LORAZEPAM 2 MG INJ IV PRN (13:00)
[2019-01-04] MEDS ORDERED: morphine 2 MG INJ IV PRN (13:00)
[2019-01-04] MEDS ORDERED: NITROGLYCERIN (SL) 0.4 MG TAB SL PRN (13:00)
[2019-01-04] MEDS ORDERED: ALBUTEROL/IPRATROPIUM (NEB) 3 ML AMP HHN PRN (13:00)
[2019-01-04] MEDS ORDERED: DOCUSATE SODIUM 100 MG CAP PO PRN (13:00)
--- NOTE | 2019-01-04 13:13 | ERD ---
ER Documentation Chief Complaint Chief Complaint gen weakness, fatigue, pressure CHICAS, hx anemia HPI Patient is a 53-year-old male with anemia and GI bleed in the past who presents with GI bleed. He said that over the past 2 weeks he has had red blood per rectum. He is not on blood thinning medications. He feels fatigue and diffuse weakness. Upon review of old medical records this is the patient's fifth visit to the ER since 2018. His primary doctor is Dr. Lal. He does not have a GI doctor. His oncologist is Dr. Chance. ROS All systems reviewed and are negative except as per history of present illness. Medications Home Meds No Active Prescriptions or Reported Meds Allergies Allergies: Coded Allergies: No Known Allergy (Unverified , 01/04/19) PMhx/Soc History of Surgery: Yes (RT KNEE, TONSILLECTOMY) Anesthesia Reaction: No Hx Neurological Disorder: No Hx Respiratory Disorders: No Hx Cardiac Disorders: No Hx Psychiatric Problems: No Hx Miscellaneous Medical Probl: Yes (CHRONIC ANEMIA ) Hx Alcohol Use: No Hx Substance Use: No Hx Tobacco Use: No Smoking Status: Never smoker FmHx Family History: diabetes Physical Exam Vitals Vital Signs Date Temp Pulse Resp B/P (MAP) Pulse Ox O2 O2 Flow FiO2 Time Delivery Rate 01/04/19 99 30 109/63 100 Room Air 13:01 (78) 01/04/19 93 17 116/97 100 Room Air 11:07 (103) 01/04/19 98.5 95 18 113/56 100 09:13 (75) Physical Exam Const: No acute distress Head: Atraumatic Eyes: Normal Conjunctiva ENT: Normal External Ears, Nose and Mouth. Neck: Full range of motion. No meningismus. Resp: Clear to auscultation bilaterally Cardio: Regular rate and rhythm, no murmurs Abd: Soft, non tender, non distended. Normal bowel sounds Skin: Pale skin Back: No midline or flank tenderness Ext: No cyanosis, or edema Neur: Awake and alert Psych: Normal Mood and Affect Result Diagram: 01/04/19 1055 01/04/19 1055 Results 24 hrs Laboratory Tests Test 01/04/19 10:55 White Blood Count 5.1 10^3/ul Red Blood Count 2.19 10^6/ul Hemoglobin 4.3 g/dl Hematocrit 15.8 % Mean Corpuscular Volume 72.1 fl Mean Corpuscular Hemoglobin 19.6 pg Mean Corpuscular Hemoglobin Concent 27.2 g/dl Red Cell Distribution Width 18.6 % Platelet Count 380 10^3/UL Mean Platelet Volume 9.9 fl Immature Granulocytes % 0.600 % Neutrophils % % Segmented Neutrophils % (Manual) 77 % Lymphocytes % % Lymphocytes % (Manual) 19 % Monocytes % % Monocytes % (Manual) 2 % Eosinophils % % Eosinophils % (Manual) 2 % Basophils % % Nucleated Red Blood Cells % 0.4 /100WBC Immature Granulocytes # 0.030 10^3/ul Neutrophils # 10^3/ul Lymphocytes (Manual) 0.9 10^3/ul Lymphocytes # 10^3/ul Monocytes # 10^3/ul Monocytes # (Manual) 0.1 10^3/ul Eosinophils # 10^3/ul Basophils # 10^3/ul Nucleated Red Blood Cells # 10^3/ul Pathologist Review (Hematology) YES Platelet Estimate NORMAL Polychromasia 3+ Hypochromasia 2+ Poikilocytosis 1+ Anisocytosis 3+ Microcytosis 3+ Tear Drop Cells 1+ Elliptocytes 1+ Prothrombin Time 13.5 Sec Prothrombin Time Ratio 1.1 INR International Normalized Ratio 1.02 Activated Partial Thromboplast Time 24.2 Sec Sodium Level 139 mmol/L Potassium Level 3.8 mmol/L Chloride Level 104 mmol/L Carbon Dioxide Level 27 mmol/L Anion Gap 8 Blood Urea Nitrogen 14 mg/dl Creatinine 0.73 mg/dl Est Glomerular Filtrat Rate mL/min > 60 mL/min Glucose Level 121 mg/dl Calcium Level 8.4 mg/dl Total Bilirubin 0.3 mg/dl Direct Bilirubin 0.00 mg/dl Indirect Bilirubin 0.3 mg/dl Aspartate Amino Transf (AST/SGOT) 10 IU/L Alanine Aminotransferase (ALT/SGPT) 17 IU/L Alkaline Phosphatase 76 IU/L Troponin I < 0.012 ng/ml Total Protein 6.0 g/dl Albumin 3.4 g/dl Globulin 2.60 g/dl Albumin/Globulin Ratio 1.30 Current Medications Medications Dose Sig/Mariano Start Time Status Last (Trade) Ordered Route PRN Stop Time Admin Dose Reason Admin 40 mg ONCE STAT 01/04/19 DC 01/04/19 Pantoprazole IV 10:23 10:59 (Protonix 4/22/19 10:24 Iv) 650 mg ONCE ONCE 01/04/19 DC 01/04/19 Acetaminophen PO 11:30 11:49 (Tylenol 01/04/19 11:31 Tab) Sodium 0 ml @ 0 Q0M ONCE 01/04/19 DC Chloride mls/hr IV 11:09 01/04/19 11:10 Ondansetron 4 mg BRIDGE ORDER 01/04/19 HCl (Zofran PRN IV 12:00 Inj) NAUSEA/VOMITI 01/05/19 11:59 NG 650 mg ER BRIDGE 01/04/19 Acetaminophen PRN PO 12:00 (Tylenol .MILD PAIN 01/05/19 11:59 Tab) 1-3 OR TEMP Sodium 1,000 ml @ Q1H STAT 01/04/19 01/04/19 Chloride 1,000 mls/hr IV 12:26 13:00 01/04/19 13:25 IV Flush 3 ml PER 01/04/19 (NS 3 ml) PROTOCOL IV 13:00 Ondansetron 4 mg Q6H PRN 01/04/19 HCl (Zofran IV 13:00 Inj) NAUSEA/VOMITI NG 650 mg Q6H PRN 01/04/19 Acetaminophen PO .PAIN 1-3 13:00 (Tylenol OR TEMP Tab) 1 tab Q6H PRN 01/04/19 Acetaminophen PO .MOD PAIN 13:00 / 4-6 Hydrocodone Bitart ([place] (5/325)) Morphine 2 mg Q4H PRN 01/04/19 Sulfate IV .SEVERE 13:00 (morphine) PAIN 7-10 Docusate 100 mg Q12H PRN 01/04/19 Sodium PO 13:00 (Colace) .CONSTIPATION Magnesium 30 ml DAILY PRN 01/04/19 Hydroxide PO 13:00 (Milk Of Mag) .CONSTIPATION 40 mg BID IV 01/04/19 UNV Pantoprazole 13:00 (Protonix Iv) Sodium 1,000 ml @ [id number] IV 01/04/19 Chloride 75 mls/hr 12:41 Lorazepam 0.5 mg Q6H PRN 01/04/19 (Ativan) IV ANXIETY 13:00 Albuterol/ 3 ml Q4H RESP 01/04/19 Ipratropium THERAPY PRN 13:00 (Duoneb) HHN SHORTNESS OF BREATH Hydralazine 10 mg Q6H PRN 4/22/19 HCl IV ELEVATED 13:00 (Apresoline) BLOOD PRESSURE 1 tab Q5M PRN 01/04/19 Nitroglycerin SL ANGINA 13:00 (Nitroglyceri n (Sl Tab) 0.4 Mg) Octreotide 100 ml @ 5 Q20H IV 01/04/19 UNV Acetate 1 mls/hr 13:00 mg/ Dextrose Procedures/MDM EKG read by me: Rate/Rhythm: Regular rate and rhythm at a normal rate Intervals: Normal Impression: No evidence of ischemia or arrhythmia Patient is a 53-year-old male who presents with GI bleed. The patient was found to have a hemoglobin of 4.3. He will be transfused 3 units of packed red blood cells. He was given 1 L of normal saline as well as Protonix. The patient will be admitted to the care of Dr. Aguilar from the panel team to a medical surgical bed. The patient will likely benefit from GI consultation while admitted and possible endoscopy versus colonoscopy versus both. Critical Care: Time: 35 minutes excluding all billable procedures. Treatments/Evaluations: Close monitoring and treatment of unstable vital signs, cardiorespiratory, and neurologic status, while maintaining tight balance of fluid, respiratory, and cardiac interventions. Departure Diagnosis: Primary Impression: Anemia Anemia type: unspecified type Qualified Codes: D64.9 - Anemia, unspecified Additional Impressions: Fatigue Fatigue type: unspecified Qualified Codes: R53.83 - Other fatigue GI bleed GI bleed type/associated pathology: unspecified gastrointestinal hemorrhage type Qualified Codes: K92.2 - Gastrointestinal hemorrhage, unspecified Condition: Serious LUIS CAI MD Jan 04, 2019 13:13
--- NOTE | 2019-01-04 14:29 | CONS ---
Assessment/Plan Assessment/Plan Assessment/Plan (Daily) Rectal Bleeding / Severe anemia - Likely HEMORRHOIDAL. 1. Negative EGD / colon repeated x 2. Small bowel cleared previously with CT Enterography. - Recommend inpatient hemorrhoidectomy to prevent recurrent admissions and further anemia. - February 2018 - no bleeding source found - Sep 2018 - no bleeding seen. Hemorrhoids appear to have been the cause of the rectal bleeding. - no indication for repeat EGD and colonoscopy - Transfuse to keep Hgb >=7.5. 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 Caution. - IF after hemorrhoidectomy patient continues to have rectal bleeding, then will recommend tagged RBC scan. -Will follow along with you. Consultation Date/Type/Reason Admit Date/Time Type of Consult Gastroenterology Reason for Consultation Rectal bleeding Date/Time of Note DATE: 01/04/19 TIME: 14:01 Hx of Present Illness Daily rectal bleeding. Progressive dyspnea on exertion. Patient was unable to get a an outpatient surgeon to evaluate him from his hemorrhoida. Was getting progressively weaker. Thus returned for admission. Found to have severe anemia due to blood loss. Respiratory: shortness of breath Gastrointestinal: blood (daily rectal bleeding) Past Medical History Home Meds No Active Prescriptions or Reported Meds Medications Current Medications Ondansetron HCl (Zofran Inj) 4 mg BRIDGE ORDER PRN IV NAUSEA/VOMITING; Start 01/04/19 at 12:00; Stop 01/05/19 at 11:59 Acetaminophen (Tylenol Tab) 650 mg ER BRIDGE PRN PO .MILD PAIN 1-3 OR TEMP; Start 01/04/19 at 12:00; Stop 01/05/19 at 11:59 IV Flush (NS 3 ml) 3 ml PER PROTOCOL IV ; Start 01/04/19 at 13:00 Ondansetron HCl (Zofran Inj) 4 mg Q6H PRN IV NAUSEA/VOMITING; Start 01/04/19 at 13:00 Acetaminophen (Tylenol Tab) 650 mg Q6H PRN PO .PAIN 1-3 OR TEMP; Start 01/04/19 at 13:00 Acetaminophen/ Hydrocodone Bitart ([place] (5/325)) 1 tab Q6H PRN PO .MOD PAIN 4- 6; Start 01/04/19 at 13:00 Morphine Sulfate (morphine) 2 mg Q4H PRN IV .SEVERE PAIN 7-10; Start 01/04/19 at 13:00 Docusate Sodium (Colace) 100 mg Q12H PRN PO .CONSTIPATION; Start 01/04/19 at 13:00 Magnesium Hydroxide (Milk Of Mag) 30 ml DAILY PRN PO .CONSTIPATION; Start 01/04/19 at 13:00 Pantoprazole (Protonix Iv) 40 mg BID IV ; Start 01/04/19 at 13:00; Status UNV Sodium Chloride 1,000 ml @ 75 mls/hr [id number] IV ; Start 01/04/19 at 12:41 Lorazepam (Ativan) 0.5 mg Q6H PRN IV ANXIETY; Start 01/04/19 at 13:00 Albuterol/ Ipratropium (Duoneb) 3 ml Q4H RESP THERAPY PRN HHN SHORTNESS OF BREATH; Start 01/04/19 at 13:00 Hydralazine HCl (Apresoline) 10 mg Q6H PRN IV ELEVATED BLOOD PRESSURE; Start 01/04/19 at 13:00 Nitroglycerin (Nitroglycerin (Sl Tab) 0.4 Mg) 1 tab Q5M PRN SL ANGINA; Start 01/04/19 at 13:00 Octreotide Acetate 1 mg/ Dextrose 100 ml @ 5 mls/hr Q20H IV ; Start 01/04/19 at 13:00; Status UNV Allergies: Coded Allergies: No Known Allergy (Unverified , 01/04/19) Social History Smoking Status: Never smoker Exam/Review of Systems Exam Vitals Vital Signs Date Temp Pulse Resp B/P (MAP) Pulse Ox O2 O2 Flow FiO2 Time Delivery Rate 01/04/19 99 30 109/63 100 Room Air 13:01 (78) 01/04/19 98.5 09:13 Constitutional: alert, oriented Psych: nl mood/affect Head: normocephalic Eyes: nl conjunctiva, EOMI ENMT: nl external ears & nose Neck: supple, non-tender Respiratory: clear to auscultation, normal air movement Cardiovascular: regular rate and rhythm, nl pulses Gastrointestinal: soft, nl liver, spleen, non-tender Musculoskeletal: nl extremities to inspection, nl gait and stance Extremities: normal pulses Skin: nl turgor Results Result Diagram: 01/04/19 1055 01/04/19 1055 Results 24hrs Laboratory Tests Test 01/04/19 10:55 01/04/19 13:08 White Blood Count 5.1 Red Blood Count 2.19 #L Hemoglobin 4.3 #*L Hematocrit 15.8 #L Mean Corpuscular Volume 72.1 L Mean Corpuscular Hemoglobin 19.6 L Mean Corpuscular Hemoglobin Concent 27.2 L Red Cell Distribution Width 18.6 #H Platelet Count 380 Mean Platelet Volume 9.9 Immature Granulocytes % 0.600 H Neutrophils % Segmented Neutrophils % (Manual) 77 Lymphocytes % Lymphocytes % (Manual) 19 Monocytes % Monocytes % (Manual) 2 Eosinophils % Eosinophils % (Manual) 2 Basophils % Nucleated Red Blood Cells % 0.4 H Immature Granulocytes # 0.030 Neutrophils # Lymphocytes (Manual) 0.9 Lymphocytes # Monocytes # Monocytes # (Manual) 0.1 L Eosinophils # Basophils # Nucleated Red Blood Cells # Pathologist Review (Hematology) YES Platelet Estimate NORMAL Polychromasia 3+ Hypochromasia 2+ Poikilocytosis 1+ Anisocytosis 3+ Microcytosis 3+ Tear Drop Cells 1+ Elliptocytes 1+ Prothrombin Time 13.5 Prothrombin Time Ratio 1.1 INR International Normalized Ratio 1.02 Activated Partial Thromboplast Time 24.2 Sodium Level 139 Potassium Level 3.8 Chloride Level 104 Carbon Dioxide Level 27 Anion Gap 8 Blood Urea Nitrogen 14 Creatinine 0.73 Est Glomerular Filtrat Rate mL/min > 60 Glucose Level 121 Calcium Level 8.4 Total Bilirubin 0.3 Direct Bilirubin 0.00 Indirect Bilirubin 0.3 Aspartate Amino Transf (AST/SGOT) 10 L Alanine Aminotransferase (ALT/SGPT) 17 Alkaline Phosphatase 76 Troponin I < 0.012 Total Protein 6.0 L Albumin 3.4 Globulin 2.60 Albumin/Globulin Ratio 1.30 Bedside Glucose 105 Medications Medication Current Medications Ondansetron HCl (Zofran Inj) 4 mg BRIDGE ORDER PRN IV NAUSEA/VOMITING; Start 01/04/19 at 12:00; Stop 01/05/19 at 11:59 Acetaminophen (Tylenol Tab) 650 mg ER BRIDGE PRN PO .MILD PAIN 1-3 OR TEMP; Start 01/04/19 at 12:00; Stop 01/05/19 at 11:59 IV Flush (NS 3 ml) 3 ml PER PROTOCOL IV ; Start 01/04/19 at 13:00 Ondansetron HCl (Zofran Inj) 4 mg Q6H PRN IV NAUSEA/VOMITING; Start 01/04/19 at 13:00 Acetaminophen (Tylenol Tab) 650 mg Q6H PRN PO .PAIN 1-3 OR TEMP; Start 01/04/19 at 13:00 Acetaminophen/ Hydrocodone Bitart ([place] (5/325)) 1 tab Q6H PRN PO .MOD PAIN 4- 6; Start 01/04/19 at 13:00 Morphine Sulfate (morphine) 2 mg Q4H PRN IV .SEVERE PAIN 7-10; Start 01/04/19 at 13:00 Docusate Sodium (Colace) 100 mg Q12H PRN PO .CONSTIPATION; Start 01/04/19 at 13:00 Magnesium Hydroxide (Milk Of Mag) 30 ml DAILY PRN PO .CONSTIPATION; Start 01/04/19 at 13:00 Pantoprazole (Protonix Iv) 40 mg BID IV ; Start 01/04/19 at 13:00; Status UNV Sodium Chloride 1,000 ml @ 75 mls/hr [id number] IV ; Start 01/04/19 at 12:41 Lorazepam (Ativan) 0.5 mg Q6H PRN IV ANXIETY; Start 01/04/19 at 13:00 Albuterol/ Ipratropium (Duoneb) 3 ml Q4H RESP THERAPY PRN HHN SHORTNESS OF BREATH; Start 01/04/19 at 13:00 Hydralazine HCl (Apresoline) 10 mg Q6H PRN IV ELEVATED BLOOD PRESSURE; Start 01/04/19 at 13:00 Nitroglycerin (Nitroglycerin (Sl Tab) 0.4 Mg) 1 tab Q5M PRN SL ANGINA; Start 01/04/19 at 13:00 Octreotide Acetate 1 mg/ Dextrose 100 ml @ 5 mls/hr Q20H IV ; Start 01/04/19 at 13:00; Status UNV SPENCER JONES Jan 04, 2019 14:11
--- NOTE | 2019-01-04 16:41 | HP ---
DATE OF ADMISSION: 01/04/2019 IDENTIFICATION: This is a 53-year-old male. CHIEF COMPLAINT: Weakness, headache and some lower GI bleeding. HISTORY OF PRESENT ILLNESS: 53-year-old male with prior history of GI bleeding, possibly secondary to erosive gastritis versus AVM, chronic anemia, who comes in with different complaints. He has been having weakness for the last 1 week and also with headache symptoms and also noticing bright red blood per rectum for the last few days. No apparent dizziness or loss of consciousness. Denies being on any blood thinning medications. No diarrhea or constipation. No nausea or vomiting. No fevers or chills. The patient was last here at our hospital from 09/30/2018 to 10/05/2018. At that time, he was treated for GI bleeding and he had upper and lower endoscopies performed at that time but no obvious source of bleeding found at that time. When the patient came in today, he was found to be severely low hemoglobin levels of 4.3. Presently, it has been ordered for PRBC transfusion, although this is still pending because of antibodies in his blood, so we are awaiting for special blood products to be administered to the patient. The patient has also been seen by GI team earlier today in the ER after we consulted them. PAST MEDICAL HISTORY: As stated above. ALLERGIES: NO KNOWN DRUG ALLERGIES. HOME MEDICATIONS: Unknown. PAST SURGICAL HISTORY: He has had a knee surgery in the past and tonsil surgery in the past. SOCIAL HISTORY: Denies any smoking, drinking or IV drug abuse. FAMILY HISTORY: Positive for diabetes. PHYSICAL EXAMINATION: VITAL SIGNS: Today, T-max 98.5, pulse 93 to 99, respirations 17 to 30, blood pressure is 116/97, satting 100% room air. GENERAL: The patient is lying in bed, pale-appearing but alert, although slightly lethargic, in no acute distress. HEENT: Pupils are equal, round, reactive to light. Extraocular muscles are intact. NECK: Supple. No thyromegaly. LUNGS: Clear to auscultation bilaterally. CARDIOVASCULAR: S1, S2 heard. No rubs or gallops. ABDOMEN: Soft, nontender, nondistended. Normal bowel sounds. No rebound or guarding. MUSCULOSKELETAL: No lower extremity edema bilaterally. NEUROLOGIC: No focal deficits. LABORATORIES: Again, the hemoglobin is 4.3, the hematocrit is 15.8. The rest of the CBC is normal. The comprehensive metabolic panel was normal. Coags appear to be normal. IMAGING: There are no imaging studies performed today. ASSESSMENT AND PLAN: 53-year-old male presenting with headache, weakness and lower gastrointestinal bleeding and severe anemia, hemoglobin of 4.3. 1. Weakness/anemia - likely secondary to patient's severe anemia and gastrointestinal bleeding which has led to a hemoglobin of 4.3 most likely that the patient has. - Hold all anticoagulants. - Check TSH, A1c, lipid panel. - Obtaining GI consult - per discussion, they are recommending possible inpatient hemorrhoidectomy - will discuss with surgery consult team. - In the meantime, ordered for 4 units of PRBC transfusion., follow up post- transfusion CBC. - Per GI team if pt has hemorrhoidectomy but the patient continues to have rectal bleeding, they will recommend tagged RBC scan at that time, but for now as mentioned above, we will proceed with this plan. - Proceed with IV fluids and PPI. 2. Microcytic anemia again likely secondary to gastrointestinal bleeding. His MCV is low. - Again, see #1., waiting to start PRBC transfusion (ordered in ER). - Follow up GI recommendations regarding further procedures including possible hemorrhoidectomy - again, need to consider surgery consult for that. 3. Gastrointestinal prophylaxis- PPI. 4. Deep venous thrombosis prophylaxis. SCDs for now. Hold on all anticoagulants. Dictated By: ALYCE SEYMOUR/TARYN Conf#: [id number] DID#: [id number] CC: YOAV STONE DO;*[facility]* [facility]ENTERNoelle
[2019-01-04 22:00] VITALS: BP 108/61; PULSE 83; RESP 20
[2019-01-04 22:11] VITALS: Ht 165.1 cm; Wt 86.4 kg
[2019-01-05] MEDS: PANTOPRAZOLE 40 MG INJ IV SCH ×3 (00:52→20:54)
[2019-01-05 02:00] VITALS: BP 106/58; PULSE 84; RESP 20
[2019-01-05] MEDS: SOD CHLORIDE 0.45% 1,000 ML IV SCH ×3 (02:01→20:54)
[2019-01-05] MEDS: ACETAMINOPHEN 325 MG TAB PO PRN (03:27)
[2019-01-05 08:00] VITALS: BP 97/56; PULSE 78; RESP 18
--- NOTE | 2019-01-05 09:59 | CONS ---
Assessment/Plan Assessment/Plan Hospital Course (Demo Recall) 53-year-old male was admitted through emergency room with chronic anemia secondary to GI bleed unknown source. Problems: (1) GI bleed Status: Acute Qualifiers: Qualified Codes: K92.2 - Gastrointestinal hemorrhage, unspecified (2) Anemia Status: Acute Qualifiers: Qualified Codes: D64.9 - Anemia, unspecified (3) Fatigue Status: Acute Qualifiers: Qualified Codes: R53.83 - Other fatigue Assessment/Plan (Daily) 53-year-old male with chronic anemia and GI bleeding of unknown source my pe rsonal opinion that it is unlikely the source of his bleeding hemorrhoids. Will need to obtain the medical records from other institution especially from [facility]. We also need to consult Dr. Key Chance, his a rehabilitation coordinator and obtain medical records from him. Patient may need to be transferred to the high level of care, with the patient can undergo capsule enteroscopy, and poss ible arteriogram to rule out AV malformation and possible embolization. Currently agree with blood transfusion no need an urgent intervention Consultation Date/Type/Reason Admit Date/Time Date of Consultation: Jan 05, 2019 Type of Consult Surgical Reason for Consultation Anemia, GI bleeding. Requesting Provider: ALYCE DECKER Date/Time of Note DATE: 01/05/19 TIME: 09:47 Hx of Present Illness Patient is a 53-year-old male who has a long-standing history of anemia and rectal bleeding. Patient underwent multiple colonoscopies and upper endoscopies and other tests. Results from these tests performed at the other institutions are unknown to me, however patient mentioned that she was told that during the one of the endoscopic procedure at the [facility] she was found to have large AV malformation that was probably the reason for the bleeding. Patient did not undergo any invasive procedure as per his knowledge. The reports from upper endoscopy and colonoscopy are available from [facility] were mostly negative. GI service feels that the patient will benefit from in- hospital hemorrhoidectomy. GI service feels that source of the bleeding is hemorrhoids. Patient was unable to find the surgeon to perform elective hemorrhoidectomy and was referred to the emergency room again. In the emergency room she was found to be profoundly anemic with hemoglobin of 4.5. Patient has not been transfused because of the rare antibodies in the blood requires special match. Patient is awaiting for blood products. Meanwhile the patient is hemodynamically stable, does not have complaints except fatigue. Constitutional: other (Fatigue) Eyes: no complaints ENT: no complaints Respiratory: no complaints, shortness of breath Cardiovascular: no complaints Gastrointestinal: other (Patient passes bright red blood per rectum on multiple occasions but did not have this for the last few days) Genitourinary: no complaints Musculoskeletal: no complaints, bone/joint pain Skin: no complaints Neurologic: no complaints Endocrine: no complaints Lymphatic: no complaints Psychological: no complaints, nl mood/affect Immunologic: no complaints Past Medical History Medical History: no pertinent history Home Meds No Active Prescriptions or Reported Meds Medications Current Medications Ondansetron HCl (Zofran Inj) 4 mg BRIDGE ORDER PRN IV NAUSEA/VOMITING; Start 01/04/19 at 12:00; Stop 01/05/19 at 11:59 Acetaminophen (Tylenol Tab) 650 mg ER BRIDGE PRN PO .MILD PAIN 1-3 OR TEMP; Start 01/04/19 at 12:00; Stop 01/05/19 at 11:59 IV Flush (NS 3 ml) 3 ml PER PROTOCOL IV ; Start 01/04/19 at 13:00 Ondansetron HCl (Zofran Inj) 4 mg Q6H PRN IV NAUSEA/VOMITING; Start 01/04/19 at 13:00 Acetaminophen (Tylenol Tab) 650 mg Q6H PRN PO .PAIN 1-3 OR TEMP Last administered on 01/05/19at 03:27; Admin Dose 650 MG; Start 01/04/19 at 13:00 Acetaminophen/ Hydrocodone Bitart ([place] (5/325)) 1 tab Q6H PRN PO .MOD PAIN 4- 6 Last administered on 01/04/19at 18:20; Admin Dose 1 TAB; Start 01/04/19 at 13:00 Morphine Sulfate (morphine) 2 mg Q4H PRN IV .SEVERE PAIN 7-10; Start 01/04/19 at 13:00 Docusate Sodium (Colace) 100 mg Q12H PRN PO .CONSTIPATION; Start 01/04/19 at 13:00 Magnesium Hydroxide (Milk Of Mag) 30 ml DAILY PRN PO .CONSTIPATION; Start 01/04/19 at 13:00 Pantoprazole (Protonix Iv) 40 mg BID IV Last administered on 01/05/19at 00:52; Admin Dose 40 MG; Start 01/04/19 at 13:00 Sodium Chloride 1,000 ml @ 75 mls/hr [id number] IV Last administered on 01/05/19at 03:27; Admin Dose 75 MLS/HR; Start 01/04/19 at 12:41 Lorazepam (Ativan) 0.5 mg Q6H PRN IV ANXIETY; Start 01/04/19 at 13:00 Albuterol/ Ipratropium (Duoneb) 3 ml Q4H RESP THERAPY PRN HHN SHORTNESS OF BREATH; Start 01/04/19 at 13:00 Hydralazine HCl (Apresoline) 10 mg Q6H PRN IV ELEVATED BLOOD PRESSURE; Start 01/04/19 at 13:00 Nitroglycerin (Nitroglycerin (Sl Tab) 0.4 Mg) 1 tab Q5M PRN SL ANGINA; Start 01/04/19 at 13:00 Allergies: Coded Allergies: No Known Allergy (Unverified , 01/04/19) Past Surgical History Past Surgical Hx: other (Small epigastric hernia repair in the remote past) Family History Significant Family History: no pertinent family hx Social History Alcohol Use: sober Smoking Status: Never smoker Drug Use: none Exam/Review of Systems Exam Vitals Vital Signs Date Temp Pulse Resp B/P (MAP) Pulse Ox O2 O2 Flow FiO2 Time Delivery Rate 01/05/19 98.6 78 18 97/56 (70) 100 Room Air 08:00 01/04/19 2.0 21:46 Intake and Output 01/04/19 01/04/19 01/05/19 1515:00 23:00 07:00 IntakeIntake Total 350 ml 200 ml BalanceBalance 350 ml 200 ml Constitutional: alert, oriented, well developed Psych: no complaints, nl mood/affect Head: normocephalic, atraumatic Eyes: nl conjunctiva, EOMI, nl lids, nl sclera, PERRL ENMT: nl external ears & nose, nl lips & teeth, nl nasal mucosa & septum Neck: supple, non-tender Respiratory: clear to auscultation, normal air movement Cardiovascular: regular rate and rhythm, nl pulses Gastrointestinal: soft, nl liver, spleen, non-tender, other (The rectum there is normal color stool no evidence of blood) Musculoskeletal: nl extremities to inspection, nl gait and stance Extremities: normal pulses Neurological: [employer] II-XII intact, nl mental status, nl speech, nl strength; No confused, No DTR's symmetric, No focal weakness, No lethargic, No num bness, No reflexes, No unresponsive, No other Lymph: nl lymph nodes Results Result Diagram: 01/05/19 0502 01/05/19 0502 Results 24hrs Laboratory Tests Test 01/04/19 10:55 01/04/19 13:08 01/05/19 05:02 01/05/19 05:43 White Blood 5.1 6.4 # Count Red Blood Count 2.19 #L 2.56 L Hemoglobin 4.3 #*L 6.0 #*L Hematocrit 15.8 #L 19.9 #L Mean Corpuscular 72.1 L 77.7 L Volume Mean Corpuscular 19.6 L 23.4 L Hemoglobin Mean Corpuscular 27.2 L 30.2 L Hemoglobin July nt Red Cell 18.6 #H 19.7 H Distribution Width Platelet Count 380 332 Mean Platelet 9.9 10.0 Volume Immature 0.600 H 0.500 H Granulocytes % Neutrophils % 78.7 H Segmented 77 Neutrophils % (Manual) Lymphocytes % 13.9 L Lymphocytes % 19 (Manual) Monocytes % 4.4 Monocytes % 2 (Manual) Eosinophils % 1.9 Eosinophils % 2 (Manual) Basophils % 0.6 Nucleated Red 0.4 H 0.3 H Blood Cells % Immature 0.030 0.030 Granulocytes # Neutrophils # 5.0 Lymphocytes 0.9 (Manual) Lymphocytes # 0.9 Monocytes # 0.3 Monocytes # 0.1 L (Manual) Eosinophils # 0.1 Basophils # 0.0 Nucleated Red 0.0 Blood Cells # Pathologist YES Review (Hematolo gy) Platelet NORMAL Estimate Polychromasia 3+ Hypochromasia 2+ Poikilocytosis 1+ Anisocytosis 3+ Microcytosis 3+ Tear Drop Cells 1+ Elliptocytes 1+ Prothrombin Time 13.5 Prothrombin Time 1.1 Ratio INR 1.02 International Normalized Ratio Activated 24.2 Partial Thrombop last Time Path Consult NELLY ABBOTT, Signing Patholog ist Sodium Level 139 139 Potassium Level 3.8 3.9 Chloride Level 104 107 Carbon Dioxide 27 27 Level Anion Gap 8 5 Blood Urea 14 8 Nitrogen Creatinine 0.73 0.71 Est Glomerular > 60 > 60 Filtrat Rate mL/min Glucose Level 121 96 Calcium Level 8.4 8.2 L Total Bilirubin 0.3 Direct Bilirubin 0.00 Indirect 0.3 Bilirubin Aspartate Amino 10 L Transf (AST/SGOT ) Alanine 17 Aminotransferase (ALT/SGPT) Alkaline 76 Phosphatase Troponin I < 0.012 Total Protein 6.0 L Albumin 3.4 Globulin 2.60 Albumin/Globulin 1.30 Ratio Free Thyroxine 1.01 Bedside Glucose 105 Hemoglobin A1c 5.6 Phosphorus Level 3.1 Magnesium Level 2.1 Triglycerides 115 Level Cholesterol 112 Level LDL Cholesterol, 67 Calculated HDL Cholesterol 22 L Cholesterol/HDL 5.0 Ratio Thyroid Pending Stimulating Hormone (TSH) Lab Scanned BLOOD TRANSFUSI Report ON Medications Medication Current Medications Ondansetron HCl (Zofran Inj) 4 mg BRIDGE ORDER PRN IV NAUSEA/VOMITING; Start 01/04/19 at 12:00; Stop 01/05/19 at 11:59 Acetaminophen (Tylenol Tab) 650 mg ER BRIDGE PRN PO .MILD PAIN 1-3 OR TEMP; Start 01/04/19 at 12:00; Stop 01/05/19 at 11:59 IV Flush (NS 3 ml) 3 ml PER PROTOCOL IV ; Start 01/04/19 at 13:00 Ondansetron HCl (Zofran Inj) 4 mg Q6H PRN IV NAUSEA/VOMITING; Start 01/04/19 at 13:00 Acetaminophen (Tylenol Tab) 650 mg Q6H PRN PO .PAIN 1-3 OR TEMP Last administered on 01/05/19at 03:27; Admin Dose 650 MG; Start 01/04/19 at 13:00 Acetaminophen/ Hydrocodone Bitart ([place] (5/325)) 1 tab Q6H PRN PO .MOD PAIN 4- 6 Last administered on 01/04/19at 18:20; Admin Dose 1 TAB; Start 01/04/19 at 13:00 Morphine Sulfate (morphine) 2 mg Q4H PRN IV .SEVERE PAIN 7-10; Start 01/04/19 at 13:00 Docusate Sodium (Colace) 100 mg Q12H PRN PO .CONSTIPATION; Start 01/04/19 at 13:00 Magnesium Hydroxide (Milk Of Mag) 30 ml DAILY PRN PO .CONSTIPATION; Start 01/04/19 at 13:00 Pantoprazole (Protonix Iv) 40 mg BID IV Last administered on 01/05/19at 00:52; Admin Dose 40 MG; Start 01/04/19 at 13:00 Sodium Chloride 1,000 ml @ 75 mls/hr [id number] IV Last administered on 01/05/19at 03:27; Admin Dose 75 MLS/HR; Start 01/04/19 at 12:41 Lorazepam (Ativan) 0.5 mg Q6H PRN IV ANXIETY; Start 01/04/19 at 13:00 Albuterol/ Ipratropium (Duoneb) 3 ml Q4H RESP THERAPY PRN HHN SHORTNESS OF BREATH; Start 01/04/19 at 13:00 Hydralazine HCl (Apresoline) 10 mg Q6H PRN IV ELEVATED BLOOD PRESSURE; Start 01/04/19 at 13:00 Nitroglycerin (Nitroglycerin (Sl Tab) 0.4 Mg) 1 tab Q5M PRN SL ANGINA; Start 01/04/19 at 13:00 ELIZABETH CRUZ MD Jan 05, 2019 09:58
[2019-01-05 14:00] VITALS: BP_SYST 111; BP_SYST 91; BP_DIAS 53; BP_DIAS 67; PULSE 79; PULSE 95; RESP 18
--- NOTE | 2019-01-05 14:21 | PN ---
Date/Time of Note Date/Time of Note DATE: 01/05/19 TIME: 14:17 Assessment/Plan VTE Prophylaxis Pharmacological prophylaxis: other (scds) Lines/Catheters IV Catheter Type (from [facility]): Port-a-Cath Assessment/Plan Hospital Course Assessment: Rectal Bleeding / Severe anemia - Likely HEMORRHOIDAL. Negative EGD / colon repeated x 2. Small bowel cleared previously with CT Enterography. - February 2018 - no bleeding source found - Sep 2018 - no bleeding seen. Hemorrhoids appear to have been the cause of the rectal bleeding. Plan: Hem/Onc has been consulted Advance diet to Regular Currently no indication for repeat EGD and colonoscopy Transfuse to keep Hgb >=7.5. 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 Caution. Patient seen in collaboration with Dr. Hernandez Subjective: Course reviewed with nursing staff Patient interviewed and examined All labs, imaging and other results reviewed The patient states he is feeling better today, no overt signs of bleeding noted. Pt is currently NPO. No c/o nausea or vomiting. Maintain close observation Constitutional: alert, oriented Psych: nl mood/affect Head: normocephalic Eyes: nl conjunctiva, EOMI ENMT: nl external ears & nose Neck: supple, non-tender Respiratory: clear to auscultation, normal air movement Cardiovascular: regular rate and rhythm, nl pulses Gastrointestinal: soft, nl liver, spleen, non-tender Musculoskeletal: nl extremities to inspection, nl gait and stance Extremities: normal pulses Skin: nl turgor Result Diagram: 01/05/19 0502 01/05/19 0502 Results 24hrs Laboratory Tests Test 01/05/19 05:02 01/05/19 05:43 White Blood Count 6.4 # Red Blood Count 2.56 L Hemoglobin 6.0 #*L Hematocrit 19.9 #L Mean Corpuscular Volume 77.7 L Mean Corpuscular Hemoglobin 23.4 L Mean Corpuscular Hemoglobin Concent 30.2 L Red Cell Distribution Width 19.7 H Platelet Count 332 Mean Platelet Volume 10.0 Immature Granulocytes % 0.500 H Neutrophils % 78.7 H Lymphocytes % 13.9 L Monocytes % 4.4 Eosinophils % 1.9 Basophils % 0.6 Nucleated Red Blood Cells % 0.3 H Immature Granulocytes # 0.030 Neutrophils # 5.0 Lymphocytes # 0.9 Monocytes # 0.3 Eosinophils # 0.1 Basophils # 0.0 Nucleated Red Blood Cells # 0.0 Sodium Level 139 Potassium Level 3.9 Chloride Level 107 Carbon Dioxide Level 27 Anion Gap 5 Blood Urea Nitrogen 8 Creatinine 0.71 Est Glomerular Filtrat Rate mL/min > 60 Glucose Level 96 Hemoglobin A1c 5.6 Calcium Level 8.2 L Phosphorus Level 3.1 Magnesium Level 2.1 Triglycerides Level 115 Cholesterol Level 112 LDL Cholesterol, Calculated 67 HDL Cholesterol 22 L Cholesterol/HDL Ratio 5.0 Thyroid Stimulating Hormone (TSH) Pending Lab Scanned Report BLOOD TRANSFUSION Exam/Review of Systems Exam Vitals Vital Signs Date Temp Pulse Resp B/P (MAP) Pulse Ox O2 O2 Flow FiO2 Time Delivery Rate 01/05/19 98.6 78 18 97/56 (70) 100 Room Air 08:00 01/04/19 2.0 21:46 Intake and Output 01/04/19 01/04/19 01/05/19 1515:00 23:00 07:00 IntakeIntake Total 350 ml 200 ml BalanceBalance 350 ml 200 ml Results Results 24hrs Laboratory Tests Test 01/05/19 05:02 01/05/19 05:43 White Blood Count 6.4 # Red Blood Count 2.56 L Hemoglobin 6.0 #*L Hematocrit 19.9 #L Mean Corpuscular Volume 77.7 L Mean Corpuscular Hemoglobin 23.4 L Mean Corpuscular Hemoglobin Concent 30.2 L Red Cell Distribution Width 19.7 H Platelet Count 332 Mean Platelet Volume 10.0 Immature Granulocytes % 0.500 H Neutrophils % 78.7 H Lymphocytes % 13.9 L Monocytes % 4.4 Eosinophils % 1.9 Basophils % 0.6 Nucleated Red Blood Cells % 0.3 H Immature Granulocytes # 0.030 Neutrophils # 5.0 Lymphocytes # 0.9 Monocytes # 0.3 Eosinophils # 0.1 Basophils # 0.0 Nucleated Red Blood Cells # 0.0 Sodium Level 139 Potassium Level 3.9 Chloride Level 107 Carbon Dioxide Level 27 Anion Gap 5 Blood Urea Nitrogen 8 Creatinine 0.71 Est Glomerular Filtrat Rate mL/min > 60 Glucose Level 96 Hemoglobin A1c 5.6 Calcium Level 8.2 L Phosphorus Level 3.1 Magnesium Level 2.1 Triglycerides Level 115 Cholesterol Level 112 LDL Cholesterol, Calculated 67 HDL Cholesterol 22 L Cholesterol/HDL Ratio 5.0 Thyroid Stimulating Hormone (TSH) Pending Lab Scanned Report BLOOD TRANSFUSION Medications Medication Current Medications IV Flush (NS 3 ml) 3 ml PER PROTOCOL IV ; Start 01/04/19 at 13:00 Ondansetron HCl (Zofran Inj) 4 mg Q6H PRN IV NAUSEA/VOMITING; Start 01/04/19 at 13:00 Acetaminophen (Tylenol Tab) 650 mg Q6H PRN PO .PAIN 1-3 OR TEMP Last administered on 01/05/19 03:27; Admin Dose 650 MG; Start 01/04/19 at 13:00 Acetaminophen/ Hydrocodone Bitart ([place] (5/325)) 1 tab Q6H PRN PO .MOD PAIN 4- 6 Last administered on 01/04/19 18:20; Admin Dose 1 TAB; Start 01/04/19 at 13:00 Morphine Sulfate (morphine) 2 mg Q4H PRN IV .SEVERE PAIN 7-10; Start 01/04/19 at 13:00 Docusate Sodium (Colace) 100 mg Q12H PRN PO .CONSTIPATION; Start 01/04/19 at 13:00 Magnesium Hydroxide (Milk Of Mag) 30 ml DAILY PRN PO .CONSTIPATION; Start 01/04/19 at 13:00 Pantoprazole (Protonix Iv) 40 mg BID IV Last administered on 01/05/19at 11:16; Admin Dose 40 MG; Start 01/04/19 at 13:00 Sodium Chloride 1,000 ml @ 75 mls/hr [id number] IV Last administered on 01/05/19 03:27; Admin Dose 75 MLS/HR; Start 01/04/19 at 12:41 Lorazepam (Ativan) 0.5 mg Q6H PRN IV ANXIETY; Start 01/04/19 at 13:00 Albuterol/ Ipratropium (Duoneb) 3 ml Q4H RESP THERAPY PRN HHN SHORTNESS OF BREATH; Start 01/04/19 at 13:00 Hydralazine HCl (Apresoline) 10 mg Q6H PRN IV ELEVATED BLOOD PRESSURE; Start 01/04/19 at 13:00 Nitroglycerin (Nitroglycerin (Sl Tab) 0.4 Mg) 1 tab Q5M PRN SL ANGINA; Start 01/04/19 at 13:00 JEET VALDOVINOS Jan 05, 2019 14:21
--- NOTE | 2019-01-05 14:45 | PN ---
Date/Time of Note Date/Time of Note DATE: 01/05/19 TIME: 14:34 Assessment/Plan VTE Prophylaxis SCD applied (from Nsg): No SCD contraindicated: other Pharmacological prophylaxis: NA/contraindicated Pharm contraindication: bleeding Lines/Catheters IV C[facility]ter Type [facility]from [facility] [place] Port-a-Cath Assessment/Plan Hospital Course S: Patient received 3 of the 4 units of blood ordered yesterday. Seen by GI and surgery teams. No present signs of any GI bleeding. O: Vs- see below PHYSICAL EXAMINATION: GENERAL: lying in bed, pale-appearing but alert, in no acute distress. HEENT: Pupils are equal, round, reactive to light. Extraocular muscles are intact. NECK: Supple. No thyromegaly. LUNGS: Clear to auscultation bilaterally. CARDIOVASCULAR: S1, S2 heard. No rubs or gallops. ABDOMEN: Soft, nontender, nondistended. Normal bowel sounds. No rebound or guarding. MUSCULOSKELETAL: No lower extremity edema bilaterally. NEUROLOGIC: No focal deficits. ASSESSMENT AND PLAN: 53-year-old male presenting with headache, weakness and lower gastrointestinal bleeding and severe anemia, hemoglobin of 4.3. 1. Weakness/anemia - likely secondary to patient's severe anemia and gastrointestinal bleeding which has led to a hemoglobin of 4.3 most likely that the patient has. - Continue to hold all anticoagulants. - Check TSH, A1c, lipid panel. - Appreciate surgery and GI consults -we will also consult hematology oncology team as patient has seen them in the past as an outpatient for bleeding issues. - We will order for 2 more units of PRBC transfusion today as well, patient likely again will need special blood products given his antibodies. - Per surgery recommendations, patient may need to be transferred to a higher level of care if bleeding source not found here, for possible need to undergo capsule enteroscopy, and possible arteriogram to rule out AV malformation and possible embolization. -Continue IV fluids and PPI. 2. Microcytic anemia again likely secondary to gastrointestinal bleeding. His MCV is low, again status post 3 units PRBC transfusion yesterday. Hemoglobin however still only slightly elevated at 6.0 today. - Again, see #1. -Follow-up surgery and GI recommendations. 3. Gastrointestinal prophylaxis- PPI. 4. Deep venous thrombosis prophylaxis. SCDs for now. Hold on all anticoagulants. Result Diagram: 01/05/19 0502 01/05/19 0502 Results 24hrs Laboratory Tests Test 01/05/19 05:02 01/05/19 05:43 White Blood Count 6.4 # Red Blood Count 2.56 L Hemoglobin 6.0 #*L Hematocrit 19.9 #L Mean Corpuscular Volume 77.7 L Mean Corpuscular Hemoglobin 23.4 L Mean Corpuscular Hemoglobin Concent 30.2 L Red Cell Distribution Width 19.7 H Platelet Count 332 Mean Platelet Volume 10.0 Immature Granulocytes % 0.500 H Neutrophils % 78.7 H Lymphocytes % 13.9 L Monocytes % 4.4 Eosinophils % 1.9 Basophils % 0.6 Nucleated Red Blood Cells % 0.3 H Immature Granulocytes # 0.030 Neutrophils # 5.0 Lymphocytes # 0.9 Monocytes # 0.3 Eosinophils # 0.1 Basophils # 0.0 Nucleated Red Blood Cells # 0.0 Sodium Level 139 Potassium Level 3.9 Chloride Level 107 Carbon Dioxide Level 27 Anion Gap 5 Blood Urea Nitrogen 8 Creatinine 0.71 Est Glomerular Filtrat Rate mL/min > 60 Glucose Level 96 Hemoglobin A1c 5.6 Calcium Level 8.2 L Phosphorus Level 3.1 Magnesium Level 2.1 Triglycerides Level 115 Cholesterol Level 112 LDL Cholesterol, Calculated 67 HDL Cholesterol 22 L Cholesterol/HDL Ratio 5.0 Thyroid Stimulating Hormone (TSH) Pending Lab Scanned Report BLOOD TRANSFUSION Exam/Review of Systems Exam Vitals Vital Signs Date Temp Pulse Resp B/P (MAP) Pulse Ox O2 O2 Flow FiO2 Time Delivery Rate 01/05/19 98.6 78 18 97/56 (70) 100 Room Air 08:00 01/04/19 2.0 21:46 Intake and Output 01/04/19 01/04/19 01/05/19 1515:00 23:00 07:00 IntakeIntake Total 350 ml 200 ml BalanceBalance 350 ml 200 ml Results Results 24hrs Laboratory Tests Test 01/05/19 05:02 01/05/19 05:43 White Blood Count 6.4 # Red Blood Count 2.56 L Hemoglobin 6.0 #*L Hematocrit 19.9 #L Mean Corpuscular Volume 77.7 L Mean Corpuscular Hemoglobin 23.4 L Mean Corpuscular Hemoglobin Concent 30.2 L Red Cell Distribution Width 19.7 H Platelet Count 332 Mean Platelet Volume 10.0 Immature Granulocytes % 0.500 H Neutrophils % 78.7 H Lymphocytes % 13.9 L Monocytes % 4.4 Eosinophils % 1.9 Basophils % 0.6 Nucleated Red Blood Cells % 0.3 H Immature Granulocytes # 0.030 Neutrophils # 5.0 Lymphocytes # 0.9 Monocytes # 0.3 Eosinophils # 0.1 Basophils # 0.0 Nucleated Red Blood Cells # 0.0 Sodium Level 139 Potassium Level 3.9 Chloride Level 107 Carbon Dioxide Level 27 Anion Gap 5 Blood Urea Nitrogen 8 Creatinine 0.71 Est Glomerular Filtrat Rate mL/min > 60 Glucose Level 96 Hemoglobin A1c 5.6 Calcium Level 8.2 L Phosphorus Level 3.1 Magnesium Level 2.1 Triglycerides Level 115 Cholesterol Level 112 LDL Cholesterol, Calculated 67 HDL Cholesterol 22 L Cholesterol/HDL Ratio 5.0 Thyroid Stimulating Hormone (TSH) Pending Lab Scanned Report BLOOD TRANSFUSION Medications Medication Current Medications IV Flush (NS 3 ml) 3 ml PER PROTOCOL IV ; Start 01/04/19 at 13:00 Ondansetron HCl (Zofran Inj) 4 mg Q6H PRN IV NAUSEA/VOMITING; Start 01/04/19 at 13:00 Acetaminophen (Tylenol Tab) 650 mg Q6H PRN PO .PAIN 1-3 OR TEMP Last administered on 01/05/19 03:27; Admin Dose 650 MG; Start 01/04/19 at 13:00 Acetaminophen/ Hydrocodone Bitart ([place] (5/325)) 1 tab Q6H PRN PO .MOD PAIN 4- 6 Last administered on 01/04/19at 18:20; Admin Dose 1 TAB; Start 01/04/19 at 13:00 Morphine Sulfate (morphine) 2 mg Q4H PRN IV .SEVERE PAIN 7-10; Start 01/04/19 at 13:00 Docusate Sodium (Colace) 100 mg Q12H PRN PO .CONSTIPATION; Start 01/04/19 at 13:00 Magnesium Hydroxide (Milk Of Mag) 30 ml DAILY PRN PO .CONSTIPATION; Start 01/04/19 at 13:00 Pantoprazole (Protonix Iv) 40 mg BID IV Last administered on 01/05/19at 11:16; Admin Dose 40 MG; Start 01/04/19 at 13:00 Sodium Chloride 1,000 ml @ 75 mls/hr [id number] IV Last administered on 01/05/19 03:27; Admin Dose 75 MLS/HR; Start 01/04/19 at 12:41 Lorazepam (Ativan) 0.5 mg Q6H PRN IV ANXIETY; Start 01/04/19 at 13:00 Albuterol/ Ipratropium (Duoneb) 3 ml Q4H RESP THERAPY PRN HHN SHORTNESS OF BREATH; Start 01/04/19 at 13:00 Hydralazine HCl (Apresoline) 10 mg Q6H PRN IV ELEVATED BLOOD PRESSURE; Start 01/04/19 at 13:00 Nitroglycerin (Nitroglycerin (Sl Tab) 0.4 Mg) 1 tab Q5M PRN SL ANGINA; Start 01/04/19 at 13:00 ALYCE DECKER Jan 05, 2019 14:44
--- NOTE | 2019-01-05 16:18 | CONS ---
Assessment/Plan Assessment/Plan Hospital Course (Demo Recall) #Iron deficiency Anemia #Bleeding hemorrhoids #AVM's -will continue IV iron -agree with blood transfusion of special blood products. -GI believes pt needs in patient hemorrhoidectomy -if this does not control the bleeding I agree with surgery that patient may need transferred to a higher level of care if bleeding source not found here, for possible need to undergo capsule enteroscopy, and possible arteriogram to rule out AV malformation and possible embolization. Consultation Date/Type/Reason Admit Date/Time 01/04/19 Date of Consultation: Jan 05, 2019 Type of Consult hematology Reason for Consultation anemia Requesting Provider: ALYCE DECKER Date/Time of Note DATE: 01/05/19 TIME: 15:56 Hx of Present Illness Mr Montiel is a pleasant 53 yo male, currently being treated for iron deficiency by Dr. De Jesus who presents to ER on 01/04 with rectal bleeding. Per out patient records pt has AV malformations and regularly needs IV iron. Pt has since been seen bi GI who believes the bleeding is from friable hemmhoroids and that a inpatient hemorrhoidectomy is indicated. The have also noted 2 negative EGD / colon repeated x 2. Small bowel cleared previously with CT Enterography. On admission his Hg was 4.3. HE has since been transfused 4 units of PRBCs and his Hg is now > 6. 01/04/19 out patient labs revealed Hg 4.3, iron sat 3%, ferritin 4 and iron 9, Vitamin b12 329.. IV iron has been ordered Constitutional: diaphoresis Eyes: No no complaints, No pain, No discharge, No redness, No visual change, No other ENT: No no complaints, No bleeding, No pain, No congestion, No discharge, No dysphagia, No sore throat, No other Respiratory: No no complaints, No pain, No cough, No pleuritic pain, No shortness of breath, No sputum, No wheezing, No other Cardiovascular: lightheadedness, palpitations Gastrointestinal: blood Genitourinary: no complaints Musculoskeletal: bone/joint pain Past Medical History Depression Anxiety AVMs Home Meds No Active Prescriptions or Reported Meds Medications Current Medications IV Flush (NS 3 ml) 3 ml PER PROTOCOL IV ; Start 01/04/19 at 13:00 Ondansetron HCl (Zofran Inj) 4 mg Q6H PRN IV NAUSEA/VOMITING; Start 01/04/19 at 13:00 Acetaminophen (Tylenol Tab) 650 mg Q6H PRN PO .PAIN 1-3 OR TEMP Last administered on 01/05/19at 03:27; Admin Dose 650 MG; Start 01/04/19 at 13:00 Acetaminophen/ Hydrocodone Bitart ([place] (5/325)) 1 tab Q6H PRN PO .MOD PAIN 4- 6 Last administered on 01/04/19at 18:20; Admin Dose 1 TAB; Start 01/04/19 at 13:00 Morphine Sulfate (morphine) 2 mg Q4H PRN IV .SEVERE PAIN 7-10; Start 01/04/19 at 13:00 Docusate Sodium (Colace) 100 mg Q12H PRN PO .CONSTIPATION; Start 01/04/19 at 13:00 Magnesium Hydroxide (Milk Of Mag) 30 ml DAILY PRN PO .CONSTIPATION; Start 01/04/19 at 13:00 Pantoprazole (Protonix Iv) 40 mg BID IV Last administered on 01/05/19at 11:16; Admin Dose 40 MG; Start 01/04/19 at 13:00 Sodium Chloride 1,000 ml @ 75 mls/hr [id number] IV Last administered on 01/05/19at 03:27; Admin Dose 75 MLS/HR; Start 01/04/19 at 12:41 Lorazepam (Ativan) 0.5 mg Q6H PRN IV ANXIETY; Start 01/04/19 at 13:00 Albuterol/ Ipratropium (Duoneb) 3 ml Q4H RESP THERAPY PRN HHN SHORTNESS OF BREATH; Start 01/04/19 at 13:00 Hydralazine HCl (Apresoline) 10 mg Q6H PRN IV ELEVATED BLOOD PRESSURE; Start 01/04/19 at 13:00 Nitroglycerin (Nitroglycerin (Sl Tab) 0.4 Mg) 1 tab Q5M PRN SL ANGINA; Start 01/04/19 at 13:00 Ferric Sodium Gluconate Complex 125 mg/Sodium Chloride 110 ml @ 110 mls/hr DAILY@1300 IVPB ; Start 01/06/19 at 13:00; Stop 01/10/19 at 13:59 Allergies: Coded Allergies: No Known Allergy (Unverified , 01/04/19) Past Surgical History Past Surgical Hx: other (Small epigastric hernia repair in the remote past) Family History Significant Family History: no pertinent family hx Social History Alcohol Use: sober Smoking Status: Never smoker Drug Use: none Exam/Review of Systems Exam Vitals Vital Signs Date Temp Pulse Resp B/P (MAP) Pulse Ox O2 O2 Flow FiO2 Time Delivery Rate 01/05/19 97.9 79 18 111/67 97 Room Air 14:00 (82) 01/04/19 2.0 21:46 Intake and Output 01/04/19 01/04/19 01/05/19 1515:00 23:00 07:00 IntakeIntake Total 350 ml 200 ml BalanceBalance 350 ml 200 ml Constitutional: alert, oriented Psych: no complaints Head: normocephalic Eyes: nl conjunctiva ENMT: nl external ears & nose Neck: supple Respiratory: clear to auscultation Cardiovascular: regular rate and rhythm Gastrointestinal: soft Musculoskeletal: nl extremities to inspection Results Result Diagram: 01/05/19 0502 01/05/19 0502 Results 24hrs Laboratory Tests Test 01/05/19 05:02 01/05/19 05:43 White Blood Count 6.4 # Red Blood Count 2.56 L Hemoglobin 6.0 #*L Hematocrit 19.9 #L Mean Corpuscular Volume 77.7 L Mean Corpuscular Hemoglobin 23.4 L Mean Corpuscular Hemoglobin Concent 30.2 L Red Cell Distribution Width 19.7 H Platelet Count 332 Mean Platelet Volume 10.0 Immature Granulocytes % 0.500 H Neutrophils % 78.7 H Lymphocytes % 13.9 L Monocytes % 4.4 Eosinophils % 1.9 Basophils % 0.6 Nucleated Red Blood Cells % 0.3 H Immature Granulocytes # 0.030 Neutrophils # 5.0 Lymphocytes # 0.9 Monocytes # 0.3 Eosinophils # 0.1 Basophils # 0.0 Nucleated Red Blood Cells # 0.0 Sodium Level 139 Potassium Level 3.9 Chloride Level 107 Carbon Dioxide Level 27 Anion Gap 5 Blood Urea Nitrogen 8 Creatinine 0.71 Est Glomerular Filtrat Rate mL/min > 60 Glucose Level 96 Hemoglobin A1c 5.6 Calcium Level 8.2 L Phosphorus Level 3.1 Magnesium Level 2.1 Triglycerides Level 115 Cholesterol Level 112 LDL Cholesterol, Calculated 67 HDL Cholesterol 22 L Cholesterol/HDL Ratio 5.0 Thyroid Stimulating Hormone (TSH) Pending Lab Scanned Report BLOOD TRANSFUSION Medications Medication Current Medications IV Flush (NS 3 ml) 3 ml PER PROTOCOL IV ; Start 01/04/19 at 13:00 Ondansetron HCl (Zofran Inj) 4 mg Q6H PRN IV NAUSEA/VOMITING; Start 01/04/19 at 13:00 Acetaminophen (Tylenol Tab) 650 mg Q6H PRN PO .PAIN 1-3 OR TEMP Last administered on 01/05/19at 03:27; Admin Dose 650 MG; Start 01/04/19 at 13:00 Acetaminophen/ Hydrocodone Bitart ([place] (5/325)) 1 tab Q6H PRN PO .MOD PAIN 4- 6 Last administered on 01/04/19at 18:20; Admin Dose 1 TAB; Start 01/04/19 at 13:00 Morphine Sulfate (morphine) 2 mg Q4H PRN IV .SEVERE PAIN 7-10; Start 01/04/19 at 13:00 Docusate Sodium (Colace) 100 mg Q12H PRN PO .CONSTIPATION; Start 01/04/19 at 13:00 Magnesium Hydroxide (Milk Of Mag) 30 ml DAILY PRN PO .CONSTIPATION; Start 01/04/19 at 13:00 Pantoprazole (Protonix Iv) 40 mg BID IV Last administered on 01/05/19at 11:16; Admin Dose 40 MG; Start 01/04/19 at 13:00 Sodium Chloride 1,000 ml @ 75 mls/hr [id number] IV Last administered on 01/05/19at 03:27; Admin Dose 75 MLS/HR; Start 01/04/19 at 12:41 Lorazepam (Ativan) 0.5 mg Q6H PRN IV ANXIETY; Start 01/04/19 at 13:00 Albuterol/ Ipratropium (Duoneb) 3 ml Q4H RESP THERAPY PRN HHN SHORTNESS OF BREATH; Start 01/04/19 at 13:00 Hydralazine HCl (Apresoline) 10 mg Q6H PRN IV ELEVATED BLOOD PRESSURE; Start 01/04/19 at 13:00 Nitroglycerin (Nitroglycerin (Sl Tab) 0.4 Mg) 1 tab Q5M PRN SL ANGINA; Start 01/04/19 at 13:00 Ferric Sodium Gluconate Complex 125 mg/Sodium Chloride 110 ml @ 110 mls/hr DAILY@1300 IVPB ; Start 01/06/19 at 13:00; Stop 01/10/19 at 13:59 JEANNINE NARAYAN M.D. Jan 05, 2019 16:06
[2019-01-05 20:05] VITALS: BP 100/60; PULSE 80; RESP 18
[2019-01-06 02:05] VITALS: BP 108/58; PULSE 72; RESP 18
[2019-01-06 07:53] VITALS: BP 106/56; PULSE 80; RESP 18
[2019-01-06] MEDS: PANTOPRAZOLE 40 MG INJ IV SCH ×2 (08:49→20:32)
--- NOTE | 2019-01-06 09:02 | CONS ---
Assessment/Plan Assessment/Plan Hospital Course (Demo Recall) #Iron deficiency Anemia #Bleeding hemorrhoids #AVM's -will continue IV iron. Hg now > 7 -agree with blood transfusion of special blood products. -GI believes pt needs in patient hemorrhoidectomy -if this does not control the bleeding I agree with surgery that patient may need transferred to a higher level of care if bleeding source not found here, for possible need to undergo capsule enteroscopy, and possible arteriogram to rule out AV malformation and possible embolization. Consultation Date/Type/Reason Admit Date/Time Jan 04, 2019 at 12:00 Initial Consult Date 01/05/19 Type of Consult hematology Reason for Consultation iron deficiency anemia Requesting Provider: ALYCE DECKER Date/Time of Note DATE: 01/06/19 TIME: 09:01 24 HR Interval Summary Free Text/Dictation pt continues to receive IV iron. responding well. still with GI bleed Exam/Review of Systems Exam Vitals Vital Signs Date Temp Pulse Resp B/P (MAP) Pulse Ox O2 O2 Flow FiO2 Time Delivery Rate 01/06/19 98.3 80 18 106/56 97 Room Air 07:53 (73) 01/04/19 2.0 21:46 Intake and Output 01/05/19 01/05/19 01/06/19 1515:00 23:00 07:00 IntakeIntake Total 2150 ml 1600 ml OutputOutput Total 600 ml BalanceBalance 2150 ml 1000 ml Constitutional: alert Psych: no complaints Head: normocephalic Eyes: nl conjunctiva ENMT: nl external ears & nose Neck: supple Respiratory: clear to auscultation Cardiovascular: regular rate and rhythm Gastrointestinal: soft Musculoskeletal: nl extremities to inspection Results Result Diagram: 01/06/19 0500 01/06/19 0500 Results 24hrs Laboratory Tests Test 01/05/19 19:53 01/06/19 05:00 Absolute Reticulocyte Count 0.037 Percent Reticulocyte Count 1.1 Iron Level 15 L Total Iron Binding Capacity 390 Percent Iron Saturation 4 L Ferritin 6.7 L Lactate Dehydrogenase 356 Vitamin B12 Level 338 Folate 8.7 White Blood Count 6.2 Red Blood Count 3.13 #L Hemoglobin 7.4 #L Hematocrit 24.6 #L Mean Corpuscular Volume 78.6 L Mean Corpuscular Hemoglobin 23.6 L Mean Corpuscular Hemoglobin Concent 30.1 L Red Cell Distribution Width 19.9 H Platelet Count 380 Mean Platelet Volume 9.9 Immature Granulocytes % 0.800 H Neutrophils % 74.7 Lymphocytes % 15.6 Monocytes % 6.9 Eosinophils % 1.5 Basophils % 0.5 Nucleated Red Blood Cells % 0.3 H Immature Granulocytes # 0.050 H Neutrophils # 4.6 Lymphocytes # 1.0 Monocytes # 0.4 Eosinophils # 0.1 Basophils # 0.0 Nucleated Red Blood Cells # 0.0 Sodium Level 135 Potassium Level 3.6 Chloride Level 106 Carbon Dioxide Level 23 Anion Gap 6 Blood Urea Nitrogen 8 Creatinine 0.77 Est Glomerular Filtrat Rate mL/min > 60 Glucose Level 88 Calcium Level 7.9 L Medications Medication Current Medications IV Flush (NS 3 ml) 3 ml PER PROTOCOL IV ; Start 01/04/19 at 13:00 Ondansetron HCl (Zofran Inj) 4 mg Q6H PRN IV NAUSEA/VOMITING; Start 01/04/19 at 13:00 Acetaminophen (Tylenol Tab) 650 mg Q6H PRN PO .PAIN 1-3 OR TEMP Last administered on 01/05/19at 03:27; Admin Dose 650 MG; Start 01/04/19 at 13:00 Acetaminophen/ Hydrocodone Bitart ([place] (5/325)) 1 tab Q6H PRN PO .MOD PAIN 4- 6 Last administered on 01/04/19at 18:20; Admin Dose 1 TAB; Start 01/04/19 at 13:00 Morphine Sulfate (morphine) 2 mg Q4H PRN IV .SEVERE PAIN 7-10; Start 01/04/19 at 13:00 Docusate Sodium (Colace) 100 mg Q12H PRN PO .CONSTIPATION; Start 01/04/19 at 13:00 Magnesium Hydroxide (Milk Of Mag) 30 ml DAILY PRN PO .CONSTIPATION; Start 01/04/19 at 13:00 Pantoprazole (Protonix Iv) 40 mg BID IV Last administered on 01/06/19at 08:49; Admin Dose 40 MG; Start 01/04/19 at 13:00 Sodium Chloride 1,000 ml @ 75 mls/hr [id number] IV Last administered on 01/05/19at 20:54; Admin Dose 75 MLS/HR; Start 01/04/19 at 12:41 Lorazepam (Ativan) 0.5 mg Q6H PRN IV ANXIETY; Start 01/04/19 at 13:00 Albuterol/ Ipratropium (Duoneb) 3 ml Q4H RESP THERAPY PRN HHN SHORTNESS OF BREATH; Start 01/04/19 at 13:00 Hydralazine HCl (Apresoline) 10 mg Q6H PRN IV ELEVATED BLOOD PRESSURE; Start 01/04/19 at 13:00 Nitroglycerin (Nitroglycerin (Sl Tab) 0.4 Mg) 1 tab Q5M PRN SL ANGINA; Start 01/04/19 at 13:00 Ferric Sodium Gluconate Complex 125 mg/Sodium Chloride 110 ml @ 110 mls/hr DAILY@1300 IVPB ; Start 01/06/19 at 13:00; Stop 01/10/19 at 13:59 JEANNINE NARAYAN M.D. Jan 06, 2019 09:02
--- NOTE | 2019-01-06 13:18 | PN ---
Date/Time of Note Date/Time of Note DATE: 01/06/19 TIME: 13:17 Assessment/Plan VTE Prophylaxis Risk score (from Ns)>0 risk: 5 SCD applied (from Ns): Yes Pharmacological prophylaxis: NA/contraindicated Pharm contraindication: bleeding Lines/Catheters [facility] A CATH Assessment/Plan Hospital Course Assessment: Rectal Bleeding / Severe anemia - Likely HEMORRHOIDAL. Negative EGD / colon repeated x 2. Small bowel cleared previously with CT Enterography. - February 2018 - no bleeding source found - Sep 2018 - no bleeding seen. Hemorrhoids appear to have been the cause of the rectal bleeding. Plan: Pt with x2 bloody stools- ( bright red)- stat NM bleeding scan- further recommendations based on results Transfuse to keep Hgb >=7.5. 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 Caution. Patient seen in collaboration with Dr. Hernandez Subjective: Pt off the floor- will assess tomorrow Exam: Off the floor Result Diagram: 01/06/19 0500 01/06/19 0500 Results 24hrs Laboratory Tests Test 01/05/19 19:53 01/06/19 05:00 Absolute Reticulocyte Count 0.037 Percent Reticulocyte Count 1.1 Iron Level 15 L Total Iron Binding Capacity 390 Percent Iron Saturation 4 L Ferritin 6.7 L Lactate Dehydrogenase 356 Vitamin B12 Level 338 Folate 8.7 White Blood Count 6.2 Red Blood Count 3.13 #L Hemoglobin 7.4 #L Hematocrit 24.6 #L Mean Corpuscular Volume 78.6 L Mean Corpuscular Hemoglobin 23.6 L Mean Corpuscular Hemoglobin Concent 30.1 L Red Cell Distribution Width 19.9 H Platelet Count 380 Mean Platelet Volume 9.9 Immature Granulocytes % 0.800 H Neutrophils % 74.7 Lymphocytes % 15.6 Monocytes % 6.9 Eosinophils % 1.5 Basophils % 0.5 Nucleated Red Blood Cells % 0.3 H Immature Granulocytes # 0.050 H Neutrophils # 4.6 Lymphocytes # 1.0 Monocytes # 0.4 Eosinophils # 0.1 Basophils # 0.0 Nucleated Red Blood Cells # 0.0 Sodium Level 135 Potassium Level 3.6 Chloride Level 106 Carbon Dioxide Level 23 Anion Gap 6 Blood Urea Nitrogen 8 Creatinine 0.77 Est Glomerular Filtrat Rate mL/min > 60 Glucose Level 88 Calcium Level 7.9 L Exam/Review of Systems Exam Vitals Vital Signs Date Temp Pulse Resp B/P (MAP) Pulse Ox O2 O2 Flow FiO2 Time Delivery Rate 01/06/19 98.3 80 18 106/56 97 Room Air 07:53 (73) 01/04/19 2.0 21:46 Intake and Output 01/05/19 01/05/19 01/06/19 1515:00 23:00 07:00 IntakeIntake Total 2150 ml 1600 ml OutputOutput Total 600 ml BalanceBalance 2150 ml 1000 ml Results Results 24hrs Laboratory Tests Test 01/05/19 19:53 01/06/19 05:00 Absolute Reticulocyte Count 0.037 Percent Reticulocyte Count 1.1 Iron Level 15 L Total Iron Binding Capacity 390 Percent Iron Saturation 4 L Ferritin 6.7 L Lactate Dehydrogenase 356 Vitamin B12 Level 338 Folate 8.7 White Blood Count 6.2 Red Blood Count 3.13 #L Hemoglobin 7.4 #L Hematocrit 24.6 #L Mean Corpuscular Volume 78.6 L Mean Corpuscular Hemoglobin 23.6 L Mean Corpuscular Hemoglobin Concent 30.1 L Red Cell Distribution Width 19.9 H Platelet Count 380 Mean Platelet Volume 9.9 Immature Granulocytes % 0.800 H Neutrophils % 74.7 Lymphocytes % 15.6 Monocytes % 6.9 Eosinophils % 1.5 Basophils % 0.5 Nucleated Red Blood Cells % 0.3 H Immature Granulocytes # 0.050 H Neutrophils # 4.6 Lymphocytes # 1.0 Monocytes # 0.4 Eosinophils # 0.1 Basophils # 0.0 Nucleated Red Blood Cells # 0.0 Sodium Level 135 Potassium Level 3.6 Chloride Level 106 Carbon Dioxide Level 23 Anion Gap 6 Blood Urea Nitrogen 8 Creatinine 0.77 Est Glomerular Filtrat Rate mL/min > 60 Glucose Level 88 Calcium Level 7.9 L Medications Medication Current Medications IV Flush (NS 3 ml) 3 ml PER PROTOCOL IV ; Start 01/04/19 at 13:00 Ondansetron HCl (Zofran Inj) 4 mg Q6H PRN IV NAUSEA/VOMITING; Start 01/04/19 at 13:00 Acetaminophen (Tylenol Tab) 650 mg Q6H PRN PO .PAIN 1-3 OR TEMP Last administered on 01/05/19at 03:27; Admin Dose 650 MG; Start 01/04/19 at 13:00 Acetaminophen/ Hydrocodone Bitart ([place] (5/325)) 1 tab Q6H PRN PO .MOD PAIN 4- 6 Last administered on 01/04/19at 18:20; Admin Dose 1 TAB; Start 01/04/19 at 13:00 Morphine Sulfate (morphine) 2 mg Q4H PRN IV .SEVERE PAIN 7-10; Start 01/04/19 at 13:00 Docusate Sodium (Colace) 100 mg Q12H PRN PO .CONSTIPATION; Start 01/04/19 at 13:00 Magnesium Hydroxide (Milk Of Mag) 30 ml DAILY PRN PO .CONSTIPATION; Start 01/04/19 at 13:00 Pantoprazole (Protonix Iv) 40 mg BID IV Last administered on 01/06/19at 08:49; Admin Dose 40 MG; Start 01/04/19 at 13:00 Sodium Chloride 1,000 ml @ 75 mls/hr [id number] IV Last administered on 01/05/19at 20:54; Admin Dose 75 MLS/HR; Start 01/04/19 at 12:41 Lorazepam (Ativan) 0.5 mg Q6H PRN IV ANXIETY; Start 01/04/19 at 13:00 Albuterol/ Ipratropium (Duoneb) 3 ml Q4H RESP THERAPY PRN HHN SHORTNESS OF BREATH; Start 01/04/19 at 13:00 Hydralazine HCl (Apresoline) 10 mg Q6H PRN IV ELEVATED BLOOD PRESSURE; Start 01/04/19 at 13:00 Nitroglycerin (Nitroglycerin (Sl Tab) 0.4 Mg) 1 tab Q5M PRN SL ANGINA; Start 01/04/19 at 13:00 Ferric Sodium Gluconate Complex 125 mg/Sodium Chloride 110 ml @ 110 mls/hr DAILY@1300 IVPB ; Start 01/06/19 at 13:00; Stop 01/10/19 at 13:59 JEET VALDOVINOS Jan 06, 2019 13:18
[2019-01-06] MEDS: SOD FERRIC GLUC COMPLX 125 MG in SOD CHLORIDE 0.9% 100 ML IVPB SCH (14:04)
[2019-01-06] MEDS: SOD CHLORIDE 0.45% 1,000 ML IV SCH (14:04)
[2019-01-06 14:10] VITALS: BP 118/58; PULSE 80; RESP 18
--- NOTE | 2019-01-06 18:12 | PN ---
Date/Time of Note Date/Time of Note DATE: 01/06/19 TIME: 18:10 Assessment/Plan VTE Prophylaxis Risk score (from Ns)>0 risk: 5 SCD applied (from Ns): No SCD contraindicated: low risk/ambulating Pharmacological prophylaxis: NA/contraindicated Pharm contraindication: bleeding Lines/Catheters IV Catheter Type (from [facility]): PORT A CATH Assessment/Plan Hospital Course S: Patient has now received all 4 units of blood which last one was given yesterday. Seen by heme and GI teams today, still having signs of lower GI bleeding. O: Vs- see below PHYSICAL EXAMINATION: GENERAL: lying in bed, pale-appearing but alert, in no acute distress. HEENT: Pupils are equal, round, reactive to light. Extraocular muscles are intact. NECK: Supple. No thyromegaly. LUNGS: Clear to auscultation bilaterally. CARDIOVASCULAR: S1, S2 heard. No rubs or gallops. ABDOMEN: Soft, nontender, nondistended. Normal bowel sounds. No rebound or guarding. MUSCULOSKELETAL: No lower extremity edema bilaterally. NEUROLOGIC: No focal deficits. ASSESSMENT AND PLAN: 53-year-old male presenting with headache, weakness and lower gastrointestinal bleeding and severe anemia, hemoglobin of 4.3. 1. Weakness/anemia - likely secondary to patient's severe anemia and gastrointestinal bleeding which has led to a hemoglobin of 4.3 most likely that the patient has. - Continue to hold all anticoagulants, and follow-up final results of nuclear medicine scan - Appreciate surgery and GI consults and hematology oncology team as patient has seen them in the past as an outpatient for bleeding issues. - Will recheck H/H today as hemoglobin this morning was 7.4, if patient needs another PRBC transfusion, patient likely again will need special blood products given his antibodies. - Per surgery recommendations, patient may need to be transferred to a higher level of care if bleeding source not found here, for possible need to undergo capsule enteroscopy, and possible arteriogram to rule out AV malformation and possible embolization. - Continue IV fluids and PPI. 2. Microcytic anemia again likely secondary to gastrointestinal bleeding. Iron is low, MCV is low, patient started on IV iron now for the next few days - Again, see #1, follow-up CBC in the morning - Follow-up hematology oncology, surgery and GI recommendations. 3. Gastrointestinal prophylaxis- PPI. 4. Deep venous thrombosis prophylaxis. SCDs for now. Hold on all anticoagulants. Result Diagram: 01/06/19 0500 01/06/19 0500 Results 24hrs Laboratory Tests Test 01/05/19 19:53 01/06/19 05:00 Absolute Reticulocyte Count 0.037 Percent Reticulocyte Count 1.1 Iron Level 15 L Total Iron Binding Capacity 390 Percent Iron Saturation 4 L Ferritin 6.7 L Lactate Dehydrogenase 356 Vitamin B12 Level 338 Folate 8.7 White Blood Count 6.2 Red Blood Count 3.13 #L Hemoglobin 7.4 #L Hematocrit 24.6 #L Mean Corpuscular Volume 78.6 L Mean Corpuscular Hemoglobin 23.6 L Mean Corpuscular Hemoglobin Concent 30.1 L Red Cell Distribution Width 19.9 H Platelet Count 380 Mean Platelet Volume 9.9 Immature Granulocytes % 0.800 H Neutrophils % 74.7 Lymphocytes % 15.6 Monocytes % 6.9 Eosinophils % 1.5 Basophils % 0.5 Nucleated Red Blood Cells % 0.3 H Immature Granulocytes # 0.050 H Neutrophils # 4.6 Lymphocytes # 1.0 Monocytes # 0.4 Eosinophils # 0.1 Basophils # 0.0 Nucleated Red Blood Cells # 0.0 Sodium Level 135 Potassium Level 3.6 Chloride Level 106 Carbon Dioxide Level 23 Anion Gap 6 Blood Urea Nitrogen 8 Creatinine 0.77 Est Glomerular Filtrat Rate mL/min > 60 Glucose Level 88 Calcium Level 7.9 L Exam/Review of Systems Exam Vitals Vital Signs Date Temp Pulse Resp B/P (MAP) Pulse Ox O2 O2 Flow FiO2 Time Delivery Rate 01/06/19 97.9 80 18 118/58 100 Room Air 14:10 (78) 01/04/19 2.0 21:46 Intake and Output 01/05/19 01/05/19 01/06/19 1414:59 22:59 06:59 IntakeIntake Total 2150 ml 1600 ml OutputOutput Total 600 ml BalanceBalance 2150 ml 1000 ml Results Results 24hrs Laboratory Tests Test 01/05/19 19:53 01/06/19 05:00 Absolute Reticulocyte Count 0.037 Percent Reticulocyte Count 1.1 Iron Level 15 L Total Iron Binding Capacity 390 Percent Iron Saturation 4 L Ferritin 6.7 L Lactate Dehydrogenase 356 Vitamin B12 Level 338 Folate 8.7 White Blood Count 6.2 Red Blood Count 3.13 #L Hemoglobin 7.4 #L Hematocrit 24.6 #L Mean Corpuscular Volume 78.6 L Mean Corpuscular Hemoglobin 23.6 L Mean Corpuscular Hemoglobin Concent 30.1 L Red Cell Distribution Width 19.9 H Platelet Count 380 Mean Platelet Volume 9.9 Immature Granulocytes % 0.800 H Neutrophils % 74.7 Lymphocytes % 15.6 Monocytes % 6.9 Eosinophils % 1.5 Basophils % 0.5 Nucleated Red Blood Cells % 0.3 H Immature Granulocytes # 0.050 H Neutrophils # 4.6 Lymphocytes # 1.0 Monocytes # 0.4 Eosinophils # 0.1 Basophils # 0.0 Nucleated Red Blood Cells # 0.0 Sodium Level 135 Potassium Level 3.6 Chloride Level 106 Carbon Dioxide Level 23 Anion Gap 6 Blood Urea Nitrogen 8 Creatinine 0.77 Est Glomerular Filtrat Rate mL/min > 60 Glucose Level 88 Calcium Level 7.9 L Medications Medication Current Medications IV Flush (NS 3 ml) 3 ml PER PROTOCOL IV ; Start 01/04/19 at 13:00 Ondansetron HCl (Zofran Inj) 4 mg Q6H PRN IV NAUSEA/VOMITING; Start 01/04/19 at 13:00 Acetaminophen (Tylenol Tab) 650 mg Q6H PRN PO .PAIN 1-3 OR TEMP Last administered on 01/05/19at 03:27; Admin Dose 650 MG; Start 01/04/19 at 13:00 Acetaminophen/ Hydrocodone Bitart ([place] (5/325)) 1 tab Q6H PRN PO .MOD PAIN 4- 6 Last administered on 01/04/19at 18:20; Admin Dose 1 TAB; Start 01/04/19 at 13:00 Morphine Sulfate (morphine) 2 mg Q4H PRN IV .SEVERE PAIN 7-10; Start 01/04/19 at 13:00 Docusate Sodium (Colace) 100 mg Q12H PRN PO .CONSTIPATION; Start 01/04/19 at 13:00 Magnesium Hydroxide (Milk Of Mag) 30 ml DAILY PRN PO .CONSTIPATION; Start 01/04/19 at 13:00 Pantoprazole (Protonix Iv) 40 mg BID IV Last administered on 01/06/19at 08:49; Admin Dose 40 MG; Start 01/04/19 at 13:00 Sodium Chloride 1,000 ml @ 75 mls/hr [id number] IV Last administered on 01/06/19at 14:04; Admin Dose 75 MLS/HR; Start 01/04/19 at 12:41 Lorazepam (Ativan) 0.5 mg Q6H PRN IV ANXIETY; Start 01/04/19 at 13:00 Albuterol/ Ipratropium (Duoneb) 3 ml Q4H RESP THERAPY PRN HHN SHORTNESS OF BREATH; Start 01/04/19 at 13:00 Hydralazine HCl (Apresoline) 10 mg Q6H PRN IV ELEVATED BLOOD PRESSURE; Start 01/04/19 at 13:00 Nitroglycerin (Nitroglycerin (Sl Tab) 0.4 Mg) 1 tab Q5M PRN SL ANGINA; Start 01/04/19 at 13:00 Ferric Sodium Gluconate Complex 125 mg/Sodium Chloride 110 ml @ 110 mls/hr DAILY@1300 IVPB Last administered on 01/06/19at 14:04; Admin Dose 110 MLS/HR; Start 01/06/19 at 13:00; Stop 01/10/19 at 13:59 ALYCE DECKER Jan 06, 2019 18:12
[2019-01-06] MEDS ORDERED: SOD CHLORIDE 0.9% 250 ML IV* ONE (19:10)
[2019-01-06 20:00] VITALS: BP 99/56; PULSE 85; RESP 18
[2019-01-07] MEDS: ACETAMINOPHEN 325 MG TAB PO PRN (01:51)
[2019-01-07 02:10] VITALS: BP 114/56; PULSE 81; RESP 18
[2019-01-07] MEDS: SOD CHLORIDE 0.45% 1,000 ML IV SCH ×3 (07:21→22:54)
[2019-01-07 07:46] VITALS: BP 107/64; PULSE 69; RESP 18
[2019-01-07] MEDS: PANTOPRAZOLE 40 MG INJ IV SCH ×2 (10:31→20:20)
--- NOTE | 2019-01-07 13:21 | PN ---
Date/Time of Note Date/Time of Note DATE: 01/07/19 TIME: 13:21 Assessment/Plan VTE Prophylaxis Risk score (from Ns)>0 risk: 5 SCD applied (from Ns): No SCD contraindicated: other Pharmacological prophylaxis: NA/contraindicated Pharm contraindication: bleeding Lines/Catheters IV C[facility]ter Type (from [facility]): Port-a-cath Assessment/Plan Hospital Course S: Patient has now received all 4 units of blood which last one was given yesterday. Seen by heme and GI teams today, still having signs of lower GI bleeding. O: Vs- see below PHYSICAL EXAMINATION: GENERAL: lying in bed, pale-appearing but alert, in no acute distress. HEENT: Pupils are equal, round, reactive to light. Extraocular muscles are intact. NECK: Supple. No thyromegaly. LUNGS: Clear to auscultation bilaterally. CARDIOVASCULAR: S1, S2 heard. No rubs or gallops. ABDOMEN: Soft, nontender, nondistended. Normal bowel sounds. No rebound or guarding. MUSCULOSKELETAL: No lower extremity edema bilaterally. NEUROLOGIC: No focal deficits. ASSESSMENT AND PLAN: 53-year-old male presenting with headache, weakness and lower gastrointestinal bleeding and severe anemia, hemoglobin of 4.3. 1. Weakness/anemia - likely secondary to patient's severe anemia and gastrointestinal bleeding which has led to a hemoglobin of 4.3 most likely that the patient has. - Continue to hold all anticoagulants, and follow-up final results of nuclear medicine scan - Appreciate surgery and GI consults and hematology oncology team as patient has seen them in the past as an outpatient for bleeding issues. - Will recheck H/H today as hemoglobin this morning was 7.4, if patient needs another PRBC transfusion, patient likely again will need special blood products given his antibodies. - Per surgery recommendations, patient may need to be transferred to a higher level of care if bleeding source not found here, for possible need to undergo capsule enteroscopy, and possible arteriogram to rule out AV malformation and possible embolization. - Continue IV fluids and PPI. 2. Microcytic anemia again likely secondary to gastrointestinal bleeding. Iron is low, MCV is low, patient started on IV iron now for the next few days - Again, see #1, follow-up CBC in the morning - Follow-up hematology oncology, surgery and GI recommendations. 3. Gastrointestinal prophylaxis- PPI. 4. Deep venous thrombosis prophylaxis. SCDs for now. Hold on all anticoagulants. Result Diagram: 01/07/19 0859 01/07/19 0859 Results 24hrs Laboratory Tests Test 01/06/19 18:39 01/07/19 06:20 01/07/19 08:59 Hemoglobin 7.1 L 10.0 #L Hematocrit 23.5 L 32.3 #L Lab Scanned Report BLOOD TRANSFUSION White Blood Count 5.9 Red Blood Count 3.99 #L Mean Corpuscular Volume 81.0 L Mean Corpuscular Hemoglobin 25.1 L Mean Corpuscular 31.0 L Hemoglobin Concent Red Cell Distribution Width 20.0 H Platelet Count 428 H Mean Platelet Volume 10.3 Immature Granulocytes % 0.800 H Neutrophils % 69.6 Lymphocytes % 19.0 Monocytes % 7.3 Eosinophils % 2.5 Basophils % 0.8 Nucleated Red Blood Cells % 0.8 H Immature Granulocytes # 0.050 H Neutrophils # 4.1 Lymphocytes # 1.1 Monocytes # 0.4 Eosinophils # 0.2 Basophils # 0.1 Nucleated Red Blood Cells # 0.1 H Sodium Level 143 Potassium Level 4.2 Chloride Level 111 H Carbon Dioxide Level 25 Anion Gap 7 Blood Urea Nitrogen 10 Creatinine 0.94 Est Glomerular Filtrat > 60 Rate mL/min Glucose Level 138 # Calcium Level 9.2 Exam/Review of Systems Exam Vitals Vital Signs Date Temp Pulse Resp B/P (MAP) Pulse Ox O2 O2 Flow FiO2 Time Delivery Rate 01/07/19 98.1 69 18 107/64 99 Room Air 07:46 (78) 01/04/19 2.0 21:46 Intake and Output 01/06/19 01/06/19 01/07/19 1515:00 23:00 07:00 IntakeIntake Total 640 ml 1460 ml BalanceBalance 640 ml 1460 ml Results Results 24hrs Laboratory Tests Test 01/06/19 18:39 01/07/19 06:20 01/07/19 08:59 Hemoglobin 7.1 L 10.0 #L Hematocrit 23.5 L 32.3 #L Lab Scanned Report BLOOD TRANSFUSION White Blood Count 5.9 Red Blood Count 3.99 #L Mean Corpuscular Volume 81.0 L Mean Corpuscular Hemoglobin 25.1 L Mean Corpuscular 31.0 L Hemoglobin Concent Red Cell Distribution Width 20.0 H Platelet Count 428 H Mean Platelet Volume 10.3 Immature Granulocytes % 0.800 H Neutrophils % 69.6 Lymphocytes % 19.0 Monocytes % 7.3 Eosinophils % 2.5 Basophils % 0.8 Nucleated Red Blood Cells % 0.8 H Immature Granulocytes # 0.050 H Neutrophils # 4.1 Lymphocytes # 1.1 Monocytes # 0.4 Eosinophils # 0.2 Basophils # 0.1 Nucleated Red Blood Cells # 0.1 H Sodium Level 143 Potassium Level 4.2 Chloride Level 111 H Carbon Dioxide Level 25 Anion Gap 7 Blood Urea Nitrogen 10 Creatinine 0.94 Est Glomerular Filtrat > 60 Rate mL/min Glucose Level 138 # Calcium Level 9.2 Medications Medication Current Medications IV Flush (NS 3 ml) 3 ml PER PROTOCOL IV ; Start 01/04/19 at 13:00 Ondansetron HCl (Zofran Inj) 4 mg Q6H PRN IV NAUSEA/VOMITING; Start 01/04/19 at 13:00 Acetaminophen (Tylenol Tab) 650 mg Q6H PRN PO .PAIN 1-3 OR TEMP Last administered on 01/07/19at 01:51; Admin Dose 650 MG; Start 01/04/19 at 13:00 Acetaminophen/ Hydrocodone Bitart ([place] (5/325)) 1 tab Q6H PRN PO .MOD PAIN 4- 6 Last administered on 01/04/19at 18:20; Admin Dose 1 TAB; Start 01/04/19 at 13:00 Morphine Sulfate (morphine) 2 mg Q4H PRN IV .SEVERE PAIN 7-10; Start 01/04/19 at 13:00 Docusate Sodium (Colace) 100 mg Q12H PRN PO .CONSTIPATION; Start 01/04/19 at 13:00 Magnesium Hydroxide (Milk Of Mag) 30 ml DAILY PRN PO .CONSTIPATION; Start 01/04/19 at 13:00 Pantoprazole (Protonix Iv) 40 mg BID IV Last administered on 01/07/19at 10:31; Admin Dose 40 MG; Start 01/04/19 at 13:00 Sodium Chloride 1,000 ml @ 75 mls/hr [id number] IV Last administered on 01/06/19at 14:04; Admin Dose 75 MLS/HR; Start 01/04/19 at 12:41 Lorazepam (Ativan) 0.5 mg Q6H PRN IV ANXIETY; Start 01/04/19 at 13:00 Albuterol/ Ipratropium (Duoneb) 3 ml Q4H RESP THERAPY PRN HHN SHORTNESS OF BREATH; Start 01/04/19 at 13:00 Hydralazine HCl (Apresoline) 10 mg Q6H PRN IV ELEVATED BLOOD PRESSURE; Start 01/04/19 at 13:00 Nitroglycerin (Nitroglycerin (Sl Tab) 0.4 Mg) 1 tab Q5M PRN SL ANGINA; Start 01/04/19 at 13:00 Ferric Sodium Gluconate Complex 125 mg/Sodium Chloride 110 ml @ 110 mls/hr DAILY@1300 IVPB Last administered on 01/06/19at 14:04; Admin Dose 110 MLS/HR; Start 01/06/19 at 13:00; Stop 01/10/19 at 13:59 ALYCE DECKER Jan 07, 2019 13:21
--- NOTE | 2019-01-07 13:42 | PN ---
Date/Time of Note Date/Time of Note DATE: 01/07/19 TIME: 13:39 Assessment/Plan VTE Prophylaxis Risk score (from Ns)>0 risk: 5 SCD applied (from Ns): No SCD contraindicated: low risk/ambulating Pharmacological prophylaxis: NA/contraindicated Pharm contraindication: bleeding Lines/Catheters [facility]a-cath Assessment/Plan Hospital Course Assessment: Rectal Bleeding / Severe anemia - Likely HEMORRHOIDAL. Negative EGD / colon repeated x 2. Small bowel cleared previously with CT Enterography. - February 2018 - no bleeding source found - Sep 2018 - no bleeding seen. Hemorrhoids appear to have been the cause of the rectal bleeding. -NM bleeding scan 01/06/19- negative Plan: Recommend to monitor the patient for the next 24 hours- if remains stable ok to d/c for out-pt management Pt will require out-pt capsule endoscopy to r/o SB etiology- if negative consider hemorrhoidectomy Transfuse to keep Hgb >=7.5. 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 Caution. Patient seen in collaboration with Dr. Hernandez Subjective: Pt feels well, scan amt of bleeding noted today., HGB with much improvement post transfusion. He denies, dizziness, abd pain , or nausea/vomiting Exam: PHYSICAL EXAMINATION: GENERAL: Alert & oriented x 3, in no acute distress SKIN: No lesions HEAD: Normocephalic, atraumatic, no tenderness. EYES: Pupils equal reactive to light, no discharge. EARS/NOSE AND THROAT: Ears normal, nose normal. NECK: Supple, no masses CHEST: Inspection within normal limits. CARDIOVASCULAR: Heart: Regular rate and rhythm RESPIRATORY: Lungs clear to auscultation GASTROINTESTINAL AND LIVER: Abdomen: Soft, non tenderness, non-distended, no hernias, no masses, no organomegaly, no ascites, no guarding, no rebound tenderness, normoactive bowel sounds. Rectal: Deferred. Result Diagram: 01/07/19 0859 01/07/19 0859 Results 24hrs Laboratory Tests Test 01/06/19 18:39 01/07/19 06:20 01/07/19 08:59 Hemoglobin 7.1 L 10.0 #L Hematocrit 23.5 L 32.3 #L Lab Scanned Report BLOOD TRANSFUSION White Blood Count 5.9 Red Blood Count 3.99 #L Mean Corpuscular Volume 81.0 L Mean Corpuscular Hemoglobin 25.1 L Mean Corpuscular 31.0 L Hemoglobin Concent Red Cell Distribution Width 20.0 H Platelet Count 428 H Mean Platelet Volume 10.3 Immature Granulocytes % 0.800 H Neutrophils % 69.6 Lymphocytes % 19.0 Monocytes % 7.3 Eosinophils % 2.5 Basophils % 0.8 Nucleated Red Blood Cells % 0.8 H Immature Granulocytes # 0.050 H Neutrophils # 4.1 Lymphocytes # 1.1 Monocytes # 0.4 Eosinophils # 0.2 Basophils # 0.1 Nucleated Red Blood Cells # 0.1 H Sodium Level 143 Potassium Level 4.2 Chloride Level 111 H Carbon Dioxide Level 25 Anion Gap 7 Blood Urea Nitrogen 10 Creatinine 0.94 Est Glomerular Filtrat > 60 Rate mL/min Glucose Level 138 # Calcium Level 9.2 CC: YOAV HERNANDEZ MD ; Exam/Review of Systems Exam Vitals Vital Signs Date Temp Pulse Resp B/P (MAP) Pulse Ox O2 O2 Flow FiO2 Time Delivery Rate 01/07/19 98.1 69 18 107/64 99 Room Air 07:46 (78) 01/04/19 2.0 21:46 Intake and Output 01/06/19 01/06/19 01/07/19 1515:00 23:00 07:00 IntakeIntake Total 640 ml 1460 ml BalanceBalance 640 ml 1460 ml Results Results 24hrs Laboratory Tests Test 01/06/19 18:39 01/07/19 06:20 01/07/19 08:59 Hemoglobin 7.1 L 10.0 #L Hematocrit 23.5 L 32.3 #L Lab Scanned Report BLOOD TRANSFUSION White Blood Count 5.9 Red Blood Count 3.99 #L Mean Corpuscular Volume 81.0 L Mean Corpuscular Hemoglobin 25.1 L Mean Corpuscular 31.0 L Hemoglobin Concent Red Cell Distribution Width 20.0 H Platelet Count 428 H Mean Platelet Volume 10.3 Immature Granulocytes % 0.800 H Neutrophils % 69.6 Lymphocytes % 19.0 Monocytes % 7.3 Eosinophils % 2.5 Basophils % 0.8 Nucleated Red Blood Cells % 0.8 H Immature Granulocytes # 0.050 H Neutrophils # 4.1 Lymphocytes # 1.1 Monocytes # 0.4 Eosinophils # 0.2 Basophils # 0.1 Nucleated Red Blood Cells # 0.1 H Sodium Level 143 Potassium Level 4.2 Chloride Level 111 H Carbon Dioxide Level 25 Anion Gap 7 Blood Urea Nitrogen 10 Creatinine 0.94 Est Glomerular Filtrat > 60 Rate mL/min Glucose Level 138 # Calcium Level 9.2 Medications Medication Current Medications IV Flush (NS 3 ml) 3 ml PER PROTOCOL IV ; Start 01/04/19 at 13:00 Ondansetron HCl (Zofran Inj) 4 mg Q6H PRN IV NAUSEA/VOMITING; Start 01/04/19 at 13:00 Acetaminophen (Tylenol Tab) 650 mg Q6H PRN PO .PAIN 1-3 OR TEMP Last administered on 01/07/19at 01:51; Admin Dose 650 MG; Start 01/04/19 at 13:00 Acetaminophen/ Hydrocodone Bitart ([place] (5/325)) 1 tab Q6H PRN PO .MOD PAIN 4- 6 Last administered on 01/04/19at 18:20; Admin Dose 1 TAB; Start 01/04/19 at 13:00 Morphine Sulfate (morphine) 2 mg Q4H PRN IV .SEVERE PAIN 7-10; Start 01/04/19 at 13:00 Docusate Sodium (Colace) 100 mg Q12H PRN PO .CONSTIPATION; Start 01/04/19 at 13:00 Magnesium Hydroxide (Milk Of Mag) 30 ml DAILY PRN PO .CONSTIPATION; Start 01/04/19 at 13:00 Pantoprazole (Protonix Iv) 40 mg BID IV Last administered on 01/07/19at 10:31; Admin Dose 40 MG; Start 01/04/19 at 13:00 Sodium Chloride 1,000 ml @ 75 mls/hr [id number] IV Last administered on 01/06/19at 14:04; Admin Dose 75 MLS/HR; Start 01/04/19 at 12:41 Lorazepam (Ativan) 0.5 mg Q6H PRN IV ANXIETY; Start 01/04/19 at 13:00 Albuterol/ Ipratropium (Duoneb) 3 ml Q4H RESP THERAPY PRN HHN SHORTNESS OF BREATH; Start 01/04/19 at 13:00 Hydralazine HCl (Apresoline) 10 mg Q6H PRN IV ELEVATED BLOOD PRESSURE; Start 01/04/19 at 13:00 Nitroglycerin (Nitroglycerin (Sl Tab) 0.4 Mg) 1 tab Q5M PRN SL ANGINA; Start 01/04/19 at 13:00 Ferric Sodium Gluconate Complex 125 mg/Sodium Chloride 110 ml @ 110 mls/hr DAILY@1300 IVPB Last administered on 01/06/19at 14:04; Admin Dose 110 MLS/HR; Start 01/06/19 at 13:00; Stop 01/10/19 at 13:59 JEET VALDOVINOS Jan 07, 2019 13:42
[2019-01-07] MEDS: SOD FERRIC GLUC COMPLX 125 MG in SOD CHLORIDE 0.9% 100 ML IVPB SCH (14:05)
[2019-01-07 14:38] VITALS: BP 122/72; PULSE 75; RESP 18
--- NOTE | 2019-01-07 14:54 | PN ---
Date/Time of Note Date/Time of Note DATE: 01/07/19 TIME: 14:51 Assessment/Plan VTE Prophylaxis Risk score (from Ns)>0 risk: 5 SCD applied (from Ns): No SCD contraindicated: other Pharmacological prophylaxis: NA/contraindicated Pharm contraindication: bleeding Lines/Catheters [facility] Port-a-cath Assessment/Plan Hospital Course S: Patient appears to be having less signs of lower GI bleeding today and overnight. Received 2 units of PRBC transfusion overnight, hemoglobin much improved this morning. Tolerating diet. O: Vs- see below PHYSICAL EXAMINATION: GENERAL: lying in bed, in no acute distress. HEENT: Pupils are equal, round, reactive to light. Extraocular muscles are intact. NECK: Supple. No thyromegaly. LUNGS: Clear to auscultation bilaterally. CARDIOVASCULAR: S1, S2 heard. No rubs or gallops. ABDOMEN: Soft, nontender, nondistended. Normal bowel sounds. No rebound or guarding. MUSCULOSKELETAL: No lower extremity edema bilaterally. NEUROLOGIC: No focal deficits. ASSESSMENT AND PLAN: 53-year-old male presenting with headache, weakness and lower gastrointestinal bleeding and severe anemia and initial hemoglobin of 4.3. 1. Weakness/anemia - likely secondary to patient's severe anemia and gastrointestinal bleeding which has led to a hemoglobin of 4.3 most likely that the patient has. Hemoglobin today 10.0 after a total of 6 units of blood have been given since admission. - Continue to hold all anticoagulants, and follow-up final results of nuclear medicine imaging results of the scan - Appreciate surgery and GI consults and hematology oncology team as patient has seen them in the past as an outpatient for bleeding issues. - Per discussion with jury consultant teams, if bleeding source not found here, patient will need outpatient appointment set up to undergo capsule enteroscopy, and possible arteriogram to rule out AV malformation and possible embolization. - Continue IV fluids and PPI. 2. Microcytic anemia again likely secondary to gastrointestinal bleeding. Iron is low, MCV is low, patient started on IV iron now for the next few days - Again, see #1, follow-up CBC in the morning - Follow-up hematology oncology, surgery and GI recommendations. 3. Gastrointestinal prophylaxis- PPI. 4. Deep venous thrombosis prophylaxis. SCDs for now. Hold on all anticoagulants. Dispo: Likely home in 24 hours once GI bleeding symptoms have resolved, imaging portion of the nuclear scan results are back, and case management has set up the outpatient appointment for a capsule endoscopy/enteroscopy. Result Diagram: 01/07/19 0859 01/07/19 0859 Results 24hrs Laboratory Tests Test 01/06/19 18:39 01/07/19 06:20 01/07/19 08:59 Hemoglobin 7.1 L 10.0 #L Hematocrit 23.5 L 32.3 #L Lab Scanned Report BLOOD TRANSFUSION White Blood Count 5.9 Red Blood Count 3.99 #L Mean Corpuscular Volume 81.0 L Mean Corpuscular Hemoglobin 25.1 L Mean Corpuscular 31.0 L Hemoglobin Concent Red Cell Distribution Width 20.0 H Platelet Count 428 H Mean Platelet Volume 10.3 Immature Granulocytes % 0.800 H Neutrophils % 69.6 Lymphocytes % 19.0 Monocytes % 7.3 Eosinophils % 2.5 Basophils % 0.8 Nucleated Red Blood Cells % 0.8 H Immature Granulocytes # 0.050 H Neutrophils # 4.1 Lymphocytes # 1.1 Monocytes # 0.4 Eosinophils # 0.2 Basophils # 0.1 Nucleated Red Blood Cells # 0.1 H Sodium Level 143 Potassium Level 4.2 Chloride Level 111 H Carbon Dioxide Level 25 Anion Gap 7 Blood Urea Nitrogen 10 Creatinine 0.94 Est Glomerular Filtrat > 60 Rate mL/min Glucose Level 138 # Calcium Level 9.2 Exam/Review of Systems Exam Vitals Vital Signs Date Temp Pulse Resp B/P (MAP) Pulse Ox O2 O2 Flow FiO2 Time Delivery Rate 01/07/19 98.1 69 18 107/64 99 Room Air 07:46 (78) 01/04/19 2.0 21:46 Intake and Output 01/06/19 01/06/19 01/07/19 1515:00 23:00 07:00 IntakeIntake Total 640 ml 1460 ml BalanceBalance 640 ml 1460 ml Results Results 24hrs Laboratory Tests Test 01/06/19 18:39 01/07/19 06:20 01/07/19 08:59 Hemoglobin 7.1 L 10.0 #L Hematocrit 23.5 L 32.3 #L Lab Scanned Report BLOOD TRANSFUSION White Blood Count 5.9 Red Blood Count 3.99 #L Mean Corpuscular Volume 81.0 L Mean Corpuscular Hemoglobin 25.1 L Mean Corpuscular 31.0 L Hemoglobin Concent Red Cell Distribution Width 20.0 H Platelet Count 428 H Mean Platelet Volume 10.3 Immature Granulocytes % 0.800 H Neutrophils % 69.6 Lymphocytes % 19.0 Monocytes % 7.3 Eosinophils % 2.5 Basophils % 0.8 Nucleated Red Blood Cells % 0.8 H Immature Granulocytes # 0.050 H Neutrophils # 4.1 Lymphocytes # 1.1 Monocytes # 0.4 Eosinophils # 0.2 Basophils # 0.1 Nucleated Red Blood Cells # 0.1 H Sodium Level 143 Potassium Level 4.2 Chloride Level 111 H Carbon Dioxide Level 25 Anion Gap 7 Blood Urea Nitrogen 10 Creatinine 0.94 Est Glomerular Filtrat > 60 Rate mL/min Glucose Level 138 # Calcium Level 9.2 Medications Medication Current Medications IV Flush (NS 3 ml) 3 ml PER PROTOCOL IV ; Start 01/04/19 at 13:00 Ondansetron HCl (Zofran Inj) 4 mg Q6H PRN IV NAUSEA/VOMITING; Start 01/04/19 at 13:00 Acetaminophen (Tylenol Tab) 650 mg Q6H PRN PO .PAIN 1-3 OR TEMP Last administered on 01/07/19at 01:51; Admin Dose 650 MG; Start 01/04/19 at 13:00 Acetaminophen/ Hydrocodone Bitart ([place] (5/325)) 1 tab Q6H PRN PO .MOD PAIN 4- 6 Last administered on 01/04/19at 18:20; Admin Dose 1 TAB; Start 01/04/19 at 13:00 Morphine Sulfate (morphine) 2 mg Q4H PRN IV .SEVERE PAIN 7-10; Start 01/04/19 at 13:00 Docusate Sodium (Colace) 100 mg Q12H PRN PO .CONSTIPATION; Start 01/04/19 at 13:00 Magnesium Hydroxide (Milk Of Mag) 30 ml DAILY PRN PO .CONSTIPATION; Start 01/04/19 at 13:00 Pantoprazole (Protonix Iv) 40 mg BID IV Last administered on 01/07/19at 10:31; Admin Dose 40 MG; Start 01/04/19 at 13:00 Sodium Chloride 1,000 ml @ 75 mls/hr [id number] IV Last administered on 01/06/19at 14:04; Admin Dose 75 MLS/HR; Start 01/04/19 at 12:41 Lorazepam (Ativan) 0.5 mg Q6H PRN IV ANXIETY; Start 01/04/19 at 13:00 Albuterol/ Ipratropium (Duoneb) 3 ml Q4H RESP THERAPY PRN HHN SHORTNESS OF BREATH; Start 01/04/19 at 13:00 Hydralazine HCl (Apresoline) 10 mg Q6H PRN IV ELEVATED BLOOD PRESSURE; Start 01/04/19 at 13:00 Nitroglycerin (Nitroglycerin (Sl Tab) 0.4 Mg) 1 tab Q5M PRN SL ANGINA; Start 01/04/19 at 13:00 Ferric Sodium Gluconate Complex 125 mg/Sodium Chloride 110 ml @ 110 mls/hr DAILY@1300 IVPB Last administered on 01/07/19at 14:05; Admin Dose 110 MLS/HR; Start 01/06/19 at 13:00; Stop 01/10/19 at 13:59 ALYCE DECKER Jan 07, 2019 14:54
[2019-01-07 20:17] VITALS: BP 113/66; PULSE 75; RESP 20
[2019-01-08 02:10] VITALS: BP 115/63; PULSE 73; RESP 18
[2019-01-08 08:09] VITALS: BP 113/62; PULSE 72; RESP 20
[2019-01-08] MEDS: PANTOPRAZOLE 40 MG INJ IV SCH (08:23)
[2019-01-08] MEDS: SOD FERRIC GLUC COMPLX 125 MG in SOD CHLORIDE 0.9% 100 ML IVPB SCH (12:44)
--- NOTE | 2019-01-08 12:46 | PN ---
Date/Time of Note Date/Time of Note DATE: 01/08/19 TIME: 12:44 Assessment/Plan VTE Prophylaxis Risk score (from Ns)>0 risk: 5 SCD applied (from Ns): No SCD contraindicated: other Pharmacological prophylaxis: NA/contraindicated Pharm contraindication: bleeding Lines/Catheters [facility] A CATH Assessment/Plan Hospital Course S: Patient per nursing staff still having some lower GI bleeding but appears to be less today than previously. Seen by GI team yesterday. O: Vs- see below PHYSICAL EXAMINATION: GENERAL: lying in bed, in no acute distress. HEENT: Pupils are equal, round, reactive to light. Extraocular muscles are intact. NECK: Supple. No thyromegaly. LUNGS: Clear to auscultation bilaterally. CARDIOVASCULAR: S1, S2 heard. No rubs or gallops. ABDOMEN: Soft, nontender, nondistended. Normal bowel sounds. No rebound or guarding. MUSCULOSKELETAL: No lower extremity edema bilaterally. NEUROLOGIC: No focal deficits. ASSESSMENT AND PLAN: 53-year-old male presenting with headache, weakness and lower gastrointestinal bleeding and severe anemia and initial hemoglobin of 4.3. 1. Weakness/anemia - likely secondary to patient's severe anemia and gastrointestinal bleeding;presented with hemoglobin of 4.3. A total of 6 units of blood have been given since admission. - Continue to hold all anticoagulants, and follow-up final results of nuclear medicine imaging scan results - Appreciate surgery and GI consults and hematology oncology team as patient has seen them in the past as an outpatient for bleeding issues. - Per discussion with forestry consultant teams, if bleeding source not found here, patient will need outpatient appointment set up to undergo capsule enteroscopy, and possible arteriogram to rule out AV malformation and possible embolization - Case management has been informed and is actively trying to set this up now. - Continue IV fluids and PPI. -Since hemoglobin is 8.9 today, and with still signs of minor lower GI bleeding, will recheck H&H today. 2. Microcytic anemia again likely secondary to gastrointestinal bleeding. Iron is low, MCV is low, patient started on IV iron now for the next few days - Again, see #1, follow-up CBC in the morning - Follow-up hematology oncology, surgery and GI recommendations. 3. Gastrointestinal prophylaxis- PPI. 4. Deep venous thrombosis prophylaxis. SCDs for now. Hold on all anticoagulants. Dispo: Likely home in 24 hours once GI bleeding symptoms have resolved, imaging portion of the nuclear scan results are back, and case management has set up the outpatient appointment for a capsule endoscopy/enteroscopy. Result Diagram: 01/08/1924 01/08/19 0625 Results 24hrs Laboratory Tests Test 01/08/19 06:24 01/08/19 06:25 White Blood Count 5.2 Red Blood Count 3.61 L Hemoglobin 8.9 L Hematocrit 30.0 L Mean Corpuscular Volume 83.1 Mean Corpuscular Hemoglobin 24.7 L Mean Corpuscular Hemoglobin Concent 29.7 L Red Cell Distribution Width 21.2 H Platelet Count 382 Mean Platelet Volume 10.3 Immature Granulocytes % 0.600 H Neutrophils % 65.7 Lymphocytes % 23.8 Monocytes % 6.8 Eosinophils % 2.3 Basophils % 0.8 Nucleated Red Blood Cells % 0.0 Immature Granulocytes # 0.030 Neutrophils # 3.4 Lymphocytes # 1.2 Monocytes # 0.4 Eosinophils # 0.1 Basophils # 0.0 Nucleated Red Blood Cells # 0.0 Sodium Level 141 Potassium Level 3.9 Chloride Level 109 Carbon Dioxide Level 25 Anion Gap 7 Blood Urea Nitrogen 13 Creatinine 0.80 Est Glomerular Filtrat Rate mL/min > 60 Glucose Level 100 Calcium Level 8.7 Exam/Review of Systems Exam Vitals Vital Signs Date Temp Pulse Resp B/P (MAP) Pulse Ox O2 O2 Flow FiO2 Time Delivery Rate 01/08/19 98.3 72 20 113/62 96 Room Air 08:09 (79) 01/04/19 2.0 21:46 Intake and Output 01/07/19 01/07/19 01/08/19 1515:00 23:00 07:00 IntakeIntake Total 1310 ml 1050 ml BalanceBalance 1310 ml 1050 ml Results Results 24hrs Laboratory Tests Test 01/08/19 06:24 01/08/19 06:25 White Blood Count 5.2 Red Blood Count 3.61 L Hemoglobin 8.9 L Hematocrit 30.0 L Mean Corpuscular Volume 83.1 Mean Corpuscular Hemoglobin 24.7 L Mean Corpuscular Hemoglobin Concent 29.7 L Red Cell Distribution Width 21.2 H Platelet Count 382 Mean Platelet Volume 10.3 Immature Granulocytes % 0.600 H Neutrophils % 65.7 Lymphocytes % 23.8 Monocytes % 6.8 Eosinophils % 2.3 Basophils % 0.8 Nucleated Red Blood Cells % 0.0 Immature Granulocytes # 0.030 Neutrophils # 3.4 Lymphocytes # 1.2 Monocytes # 0.4 Eosinophils # 0.1 Basophils # 0.0 Nucleated Red Blood Cells # 0.0 Sodium Level 141 Potassium Level 3.9 Chloride Level 109 Carbon Dioxide Level 25 Anion Gap 7 Blood Urea Nitrogen 13 Creatinine 0.80 Est Glomerular Filtrat Rate mL/min > 60 Glucose Level 100 Calcium Level 8.7 Medications Medication Current Medications IV Flush (NS 3 ml) 3 ml PER PROTOCOL IV ; Start 01/04/19 at 13:00 Ondansetron HCl (Zofran Inj) 4 mg Q6H PRN IV NAUSEA/VOMITING; Start 01/04/19 at 13:00 Acetaminophen (Tylenol Tab) 650 mg Q6H PRN PO .PAIN 1-3 OR TEMP Last administered on 01/07/19at 01:51; Admin Dose 650 MG; Start 01/04/19 at 13:00 Acetaminophen/ Hydrocodone Bitart ([place] (5/325)) 1 tab Q6H PRN PO .MOD PAIN 4- 6 Last administered on 01/04/19at 18:20; Admin Dose 1 TAB; Start 01/04/19 at 13:00 Morphine Sulfate (morphine) 2 mg Q4H PRN IV .SEVERE PAIN 7-10; Start 01/04/19 at 13:00 Docusate Sodium (Colace) 100 mg Q12H PRN PO .CONSTIPATION; Start 01/04/19 at 13:00 Magnesium Hydroxide (Milk Of Mag) 30 ml DAILY PRN PO .CONSTIPATION; Start 01/04/19 at 13:00 Pantoprazole (Protonix Iv) 40 mg BID IV Last administered on 01/08/19at 08:23; Admin Dose 40 MG; Start 01/04/19 at 13:00 Sodium Chloride 1,000 ml @ 75 mls/hr [id number] IV Last administered on 01/07/19at 22:54; Admin Dose 75 MLS/HR; Start 01/04/19 at 12:41 Lorazepam (Ativan) 0.5 mg Q6H PRN IV ANXIETY; Start 01/04/19 at 13:00 Albuterol/ Ipratropium (Duoneb) 3 ml Q4H RESP THERAPY PRN HHN SHORTNESS OF BREATH; Start 01/04/19 at 13:00 Hydralazine HCl (Apresoline) 10 mg Q6H PRN IV ELEVATED BLOOD PRESSURE; Start 01/04/19 at 13:00 Nitroglycerin (Nitroglycerin (Sl Tab) 0.4 Mg) 1 tab Q5M PRN SL ANGINA; Start 01/04/19 at 13:00 Ferric Sodium Gluconate Complex 125 mg/Sodium Chloride 110 ml @ 110 mls/hr DAILY@1300 IVPB Last administered on 01/07/19at 14:05; Admin Dose 110 MLS/HR; Start 01/06/19 at 13:00; Stop 01/10/19 at 13:59 ALYCE DECKER Jan 08, 2019 12:46
[2019-01-08 14:24] VITALS: BP 117/76; PULSE 75; RESP 18
[2019-01-08] MEDS: SOD CHLORIDE 0.45% 1,000 ML IV SCH (15:21)
--- NOTE | 2019-01-08 15:41 | PDOCDIS ---
Discharge Instructions CONDITION [id number] Patient Condition: [id number] Stable HOME CARE INSTRUCTIONS: Suxty1In Diet Instructions: [id number] Low Fat /Cholesterol ACTIVITY: [id number] Activity Restrictions: [id number] Slowly Increase Activity Rest between Activity Avoid heavy lifting FOLLOW UP/APPOINTMENTS Follow-up Plan Please take your medications as prescribed and follow-up with the GI doctor who can potentially schedule you for enteroscopy pill test that you may need to further investigate your small intestine for any possible bleeding sources. If you notice any further bleeding at home please go to ER, call 911, or call your GI doctor. ALYCE DECKER Jan 08, 2019 15:41
[2019-01-08] MEDS ORDERED: PANT40TA3 PO (15:42)
--- NOTE | 2019-01-08 15:50 | DS ---
Date/Time of Note Date/Time of Note DATE: 01/08/19 TIME: 15:45 Discharge Summary Admission/Discharge Info Admit Date/Time Jan 04, 2019 at 12:00 Discharge Date/Time Discharge Diagnosis 1. Weakness/anemia - likely secondary to patient's severe anemia and gastroi ntestinal bleeding;presented with hemoglobin of 4.3. A total of 6 units of blood have been given since admission. Symptoms are resolving now - patient will need outpatient appointment set up to undergo capsule enteroscopy, and possible arteriogram to rule out AV malformation and possible embolization -Case management has been informed and is actively trying to set this up now before discharge 2. Microcytic anemia again likely secondary to gastrointestinal bleeding-again status post 6 units PRBC transfusion along with IV iron Patient Condition: Stable Procedures Nuclear medicine scan: IMPRESSION: No definite abnormal areas of increased activity up to 60 minutes post injection. Delayed images of the abdomen obtained at 3 hours post injection do not reveal new abnormal areas of increased activity in the abdomen and pelvis. Hx of Present Illness 53-year-old male with prior history of GI bleeding, possibly secondary to erosive gastritis versus AVM, chronic anemia, who comes in with different complaints. He has been having weakness for the last 1 week and also with head ache symptoms and also noticing bright red blood per rectum for the last few days. No apparent dizziness or loss of consciousness. Denies being on any blood thinning medications. No diarrhea or constipation. No nausea or vomiting. No fevers or chills. The patient was last here at our hospital from 09/30/2018 to 10/05/2018. At that time, he was treated for GI bleeding and he had upper and lower endoscopies performed at that time but no obvious source of bleeding found at that time. When the patient came in today, he was found to be severely low hemoglobin levels of 4.3. Presently, it has been ordered for PRBC transfusion, although this is still pending because of antibodies in his blood, so we are awaiting for special blood products to be administered to the patient. The patient has also been seen by GI team earlier today in the ER after we consulted them. Hospital Course Patient was admitted and again during this hospital stay received a total of 6 units PRBC transfusion specialized blood products given his antibodies in his blood. Patient tolerated those procedures well. He was also found with signifi cant microcytic anemia with low iron levels and given IV iron for that. Regarding his bleeding source, he was seen by GI, surgery, and hematology oncology teams to help investigate this. He had a nuclear medicine scan performed that did not show any acute findings. His bleeding symptoms improved and minimalized although he still had some scant bleeding by the day of discharge, but his hemoglobin remained stable after the transfusions. He was able to ambulate, tolerated p.o. diet. From the recommendation from the security system sales consultant team's, patient likely will need to undergo capsule enteroscopy, and possible arteriogram to rule out AV malformation and possible embolization. Case management is in the process of setting up this appointment with a contracted GI doctor with the patient's insurance, and likely this will be done as an outpatient appointment as the patient is medically stable for discharge based on the consult team's recommendations. Patient has been given strict return precautions if he develops any further episodes of worsening GI bleeding or dizziness or lightheadedness or other overt symptoms. Please see below for full list of discharge medications. Home Meds Active Scripts Pantoprazole* (Protonix*) 40 Mg Tablet.dr, 40 MG PO DAILY for 30 Days, #30 TAB 2 Refills Prov:BRIANNEALYCE Sawant 01/08/19 Follow-up Plan Please take your medications as prescribed and follow-up with the GI doctor who can potentially schedule you for enteroscopy pill test that you may need to further investigate your small intestine for any possible bleeding sources. If you notice any further bleeding at home please go to ER, call 911, or call your GI doctor. Primary Care Provider Not On Staff Doctor Time spent on discharge: > 30 minutes Pending Labs Laboratory Tests Test 01/08/19 06:24 01/08/19 06:25 01/08/19 14:05 White Blood Count 5.2 10^3/ul (4.8-10.8) Red Blood Count 3.61 10^6/ul (4.70-6.10) Hemoglobin 8.9 8.9 g/dl (14.0-18.0) g/dl (14.0-18.0) Hematocrit 30.0 % (42.0-52.0) 29.4 % (42.0-52.0) Mean Corpuscular 83.1 Volume fl (82.0-101.0) Mean Corpuscular 24.7 pg (29.0-33.0) Hemoglobin Mean Corpuscular 29.7 Hemoglobin Concent g/dl (32.0-37.0) Red Cell 21.2 % (11.5-14.5) Distribution Width Platelet Count 382 10^3/UL (140-415) Mean Platelet 10.3 fl (7.4-10.4) Volume Immature 0.600 Granulocytes % % (0.001-0.429) Neutrophils % 65.7 % (39.0-77.0) Lymphocytes % 23.8 % (15.0-51.0) Monocytes % 6.8 % (0.0-11.0) Eosinophils % 2.3 % (0.0-7.0) Basophils % 0.8 % (0.0-2.0) Nucleated Red Blood 0.0 Cells % /100WBC (0.0-0.0) Immature 0.030 Granulocytes # 10^3/ul (0.0-0.031) Neutrophils # 3.4 10^3/ul (1.6-7.5) Lymphocytes # 1.2 10^3/ul (0.8-2.9) Monocytes # 0.4 10^3/ul (0.3-0.9) Eosinophils # 0.1 10^3/ul (0.0-0.5) Basophils # 0.0 10^3/ul (0.0-0.1) Nucleated Red Blood 0.0 Cells # 10^3/ul (0.0-0.0) Sodium Level 141 mmol/L (135-144) Potassium Level 3.9 mmol/L (3.5-5.1) Chloride Level 109 mmol/L (97-110) Carbon Dioxide 25 mmol/L (21-31) Level Anion Gap 7 (5-13) Blood Urea 13 mg/dl (7-20) Nitrogen Creatinine 0.80 mg/dl (0.61-1.24) Est Glomerular > 60 mL/min (>60) Filtrat Rate mL/min Glucose Level 100 mg/dl (70-220) Calcium Level 8.7 mg/dl (8.4-10.2) ALYCE DECKER Jan 08, 2019 15:50
[2019-01-08] MEDS ORDERED: HEPARIN (100 UNITS/ML) 5 ML SYG CATHETER ONE (17:00)
== END 2019-01-08 17:40 | disposition home or self-care (01) | DRG 812 ==
LOC: E/R 09:12 → PP2 12:00 → CANRESERV 12:30
PROVIDERS: ADMIT Hospitalist; ATTEND Hospitalist
PROC: 30233N1 Transfusion of Nonautologous Red Blood Cells into Peripheral Vein, Percutaneous Approach (ICD-10-PCS; principal; 2019-01-04)
DX: D62 Acute posthemorrhagic anemia (principal); K64.9 Unspecified hemorrhoids; R51 Headache
CPT/HCPCS: 36415; 36430; 78278; 80048; 80053; 80061; 82607; 82728; 82746; 82962; 83010; 83036; 83540; 83615; 83735; 84100; 84439; 84443; 84484; 85014; 85018; 85025; 85045; 85610; 85730; 86644; 86850; 86900; 86901; 86920; 93005; 96374; 97161; A9560; C9113; J1642; J2354; J2916; J7030; J7040; P9016

== ENCOUNTER 2019-01-25 08:59 | Inpatient (IN) | payer OTHER ==
[~2019-01-25] VITALS: Ht 165.1 cm; Wt 86.0 kg
[~2019-01-25 08:59] MED LIST changes: -FER325 PO; -HYDR25SU23 PR
[2019-01-25] MEDS ORDERED: PANTOPRAZOLE IV 80 MG in SOD CHLORIDE 0.9% 100 ML IVPB STA (10:37)
[2019-01-25] MEDS ORDERED: PANTOPRAZOLE IV 80 MG in SOD CHLORIDE 0.9% 100 ML IV STA (10:37)
--- NOTE | 2019-01-25 10:52 | ERD ---
ER Documentation Chief Complaint Chief Complaint Rectal bleeding x 3 years also c/o dizziness weakness x 5 days with cough HPI This is a 53-year-old male who is here for rectal bleeding and general weakness. The patient says he is been having rectal bleeding for 1 month now. The patient was admitted here for hemoglobin of 4 and iron deficiency anemia and he has a right Port-A-Cath getting iron infusions. He also had an EGD and colonoscopy which were unremarkable. The patient says she is continuing to get more weak and fatigued with bright red blood per rectum. The patient has had worsening bleeding from below and he brought in some iPhone pictures of his stool which showed a toilet bowl full of red blood with chunks of stool. He does not have any abdominal pain now but says he occasionally has some right upper quadrant pain ROS All systems reviewed and are negative except as per history of present illness. Medications Home Meds Active Scripts Pantoprazole* (Protonix*) 40 Mg Tablet.dr, 40 MG PO DAILY for 30 Days, #30 TAB 2 Refills Prov:NATHALY DECKERNeil Sawant 01/08/19 Reported Medications Ferrous Sulfate* (Ferrous Sulfate*) 325 Mg Tabec, 325 MG PO DAILY, TAB 01/25/19 Allergies Allergies: Coded Allergies: No Known Allergy (Unverified , 01/04/19) PMhx/Soc History of Surgery: Yes (tonsillectomy, RT knee (dates unknown) ) Anesthesia Reaction: No Hx Neurological Disorder: No Hx Respiratory Disorders: No Hx Cardiac Disorders: No Hx Psychiatric Problems: No Hx Miscellaneous Medical Probl: Yes (KNEE/TONSIL SURGERY) Hx Alcohol Use: No Hx Substance Use: No Hx Tobacco Use: No FmHx Family History: No coronary disease Physical Exam Vitals Vital Signs Date Temp Pulse Resp B/P (MAP) Pulse Ox O2 O2 Flow FiO2 Time Delivery Rate 01/25/19 Nasal 2 10:46 Cannula 01/25/19 98.4 98 18 125/66 99 09:06 (85) Physical Exam Const: Well-developed, well-nourished Head: Atraumatic, normocephalic Eyes: Normal Conjunctiva, PERRLA, EOMI, normal sclera, no nystagmus ENT: Normal External Ears, Nose and Mouth, moist mucus membranes. Neck: Full range of motion. No meningismus, no lymphadenopathy. Resp: Clear to auscultation bilaterally, no wheezing, rhonchi, rales Cardio: Regular rate and rhythm, no murmurs, S1 S2 present Abd: Soft, non tender x 4, non distended. Normal bowel sounds, no guarding or rebound, no pulsitile abdominal masses or bruits Skin: No petechiae or rashes, no ecchymosis , no maculopapular rash Back: No midline or flank tenderness Ext: No cyanosis, or edema, FROM x 4, normal inspection, neurovascularly intact x 4 Neur: Awake and alert, STR 5/5 x 4, sensation intact x 4, no focal findings, cerebellum intact Psych: Normal Mood and Affect Result Diagram: 01/25/19 1037 01/25/19 1037 Results 24 hrs Laboratory Tests Test 01/25/19 10:37 White Blood Count 6.9 10^3/ul Red Blood Count 2.19 10^6/ul Hemoglobin 4.6 g/dl Hematocrit 17.0 % Mean Corpuscular Volume 77.6 fl Mean Corpuscular Hemoglobin 21.0 pg Mean Corpuscular Hemoglobin Concent 27.1 g/dl Red Cell Distribution Width 20.2 % Platelet Count 252 10^3/UL Mean Platelet Volume 10.4 fl Immature Granulocytes % 0.300 % Neutrophils % % Segmented Neutrophils % (Manual) 77 % Band Neutrophils % (Manual) 1 % Lymphocytes % % Lymphocytes % (Manual) 15 % Monocytes % % Monocytes % (Manual) 5 % Eosinophils % % Basophils % % Basophils % (Manual) 2 % Nucleated Red Blood Cells % 0.0 /100WBC Immature Granulocytes # 0.020 10^3/ul Neutrophils # 10^3/ul Neutrophils # (Manual) 5.3 10^3/ul Band Neutrophils # 0.0 10^3/ul Lymphocytes (Manual) 1.0 10^3/ul Lymphocytes # 10^3/ul Monocytes # 10^3/ul Monocytes # (Manual) 0.3 10^3/ul Eosinophils # 10^3/ul Basophils # 10^3/ul Basophils # (Manual) 0.1 10^3/ul Nucleated Red Blood Cells # 10^3/ul Platelet Estimate NORMAL Giant Platelets 1 % Polychromasia 3+ Hypochromasia 3+ Poikilocytosis 1+ Anisocytosis 1+ Microcytosis 1+ Prothrombin Time 14.6 Sec Prothrombin Time Ratio 1.1 INR International Normalized Ratio 1.13 Activated Partial Thromboplast Time 25.4 Sec Sodium Level 137 mmol/L Potassium Level 3.7 mmol/L Chloride Level 100 mmol/L Carbon Dioxide Level 29 mmol/L Anion Gap 8 Blood Urea Nitrogen 13 mg/dl Creatinine 0.76 mg/dl Est Glomerular Filtrat Rate mL/min > 60 mL/min Glucose Level 129 mg/dl Calcium Level 8.6 mg/dl Total Bilirubin 0.6 mg/dl Direct Bilirubin 0.00 mg/dl Indirect Bilirubin 0.6 mg/dl Aspartate Amino Transf (AST/SGOT) 15 IU/L Alanine Aminotransferase (ALT/SGPT) 33 IU/L Alkaline Phosphatase 72 IU/L Troponin I < 0.012 ng/ml Total Protein 6.3 g/dl Albumin 3.6 g/dl Globulin 2.70 g/dl Albumin/Globulin Ratio 1.33 Current Medications Medications Dose Sig/Mariano Start Time Status Last (Trade) Ordered Route PRN Stop Time Admin Dose Reason Admin Pantoprazole 100 ml @ ONCE STAT 01/25/19 DC 01/25/19 80 mg/Sodium 400 mls/hr IVPB 10:37 11:27 Chloride 01/25/19 10:51 Pantoprazole 100 ml @ ONCE STAT 01/25/19 80 mg/Sodium 10 mls/hr IV 10:37 Chloride 01/25/19 20:36 Procedures/MDM Patient: CANDI JENKINS : 1965 Age: 53 Sex: M MR #: [id number] DOS: 01/25/19 1037 Ordering MD: JAS STONE DO Location: E/R Room/Bed: PROCEDURE: XR Chest. CLINICAL INDICATION: chest pain, possible upper GI bleed TECHNIQUE: Single frontal view of the chest was obtained COMPARISON: 09/30/2018 FINDINGS: The heart and mediastinum are within normal limits. The lungs are clear. There is a right chest wall port in place. There is no pleural effusion or pneumothorax. RPTAT: AA IMPRESSION: No acute disease. .Pola Ho MD, MD Date Time Electronically viewed and signed by .Pola Ho MD, on 01/25/2019 11:14 .S/ CC: JAS STONE DO [id number] Patient is a low hemoglobin of 4.6. 2 units of packed red blood cells be transfused here. Admit to the hospital for blood transfusion and scope. Critical Care Time: 30 minutes Treatments/Evaluations: Close monitoring and treatment of unstable vital signs, cardiorespiratory, and neurologic status, while maintaining tight balance of fluid, respiratory, and cardiac interventions. This time includes discussing the case with the patient and the patient's family. This time does not include all procedures stated elsewhere in this record. This time also includes reviewing old records, labs and radiological studies. This time includes examining and re- examining the patient. Additionally, this time also includes arranging care with admitting and consulting physicians. Departure Diagnosis: Primary Impression: Severe anemia Additional Impression: Rectal hemorrhage Condition: Stable JAS STONE DO January 25, 2019 10:52
[2019-01-25] MEDS ORDERED: FER325 PO (10:57)
[2019-01-25] MEDS ORDERED: ONDANSETRON 4 MG INJ IV PRN ×2 (13:00→16:00)
[2019-01-25 14:26] VITALS: PULSE 96
[2019-01-25 14:32] VITALS: Ht 165.1 cm; Wt 86.0 kg
[2019-01-25 14:39] VITALS: BP 107/53; PULSE 95; RESP 18
[2019-01-25 15:07] VITALS: BP 111/59; PULSE 102; RESP 19
[2019-01-25 16:00] VITALS: PULSE 103
[2019-01-25] MEDS ORDERED: NACL 0.9% 3 ML SYG IV SCH (16:00)
[2019-01-25] MEDS ORDERED: ACETAMINOPHEN 325 MG TAB PO PRN (16:00)
--- NOTE | 2019-01-25 16:01 | HP ---
Date/Time of Note Date/Time of Note DATE: 01/25/19 TIME: 15:44 Assessment/Plan VTE Prophylaxis Pharmacological prophylaxis: NA/contraindicated Pharm contraindication: bleeding Lines/Catheters IV Catheter Type (from Nrs): implanted port Assessment/Plan Assessment/Plan 53 yo man history of GI bleed and iron-def anemia presents with severe anemia #Iron deficiency anemia - Likely the cause of headache, palpitations, weakness. - Transfuse to Hgb>7 or per symptoms. 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 - Also IV ferrlicit if needed. #GI bleed Etiology: - Hemorrhoids: None visible on colonoscopy 09/2018, evaluation by Dr. Magallanes 01/05, or my evaluation today. - colon: Again, negative colonoscopy 09/2018 - Small bowel: Plan last time was for patient to get outpatient capsule endoscopy. I personally believe EGD with push enteroscopy might be a better idea. Plan: - Consult GI - Protonix BID - Advance diet - Likely will need inter-hospital transfer for small bowel imaging. DVT: SCDs GI: PPI BID Result Diagram: 01/25/19 1037 01/25/19 1037 HPI/ROS Admit Date/Time Admit Date/Time January 25, 2019 at 12:37 Hx of Present Illness Mr. Gabbie Ray is a pleasant man with history of chronic GI bleed and iron deficiency anemia who presents with headache, back pain, and progressively worsening fatigue. The patient has had chronic GI bleed with iron deficiency anemia since at least 08/2018. Had EGD and colonoscopy in September 2018 which were negative for bleed. He had a port-a-cath placed in October by Dr. Chance to get IV iron to keep up with losses. He was recently hospitalized at [facility] from 01/04 to 01/08 for lower GI bleed. He required a total of 6 units PRBC transfusion. He got NM tagged RBC scan which did not reveal increased uptake. He was evaluated by surgery and determined there were no significant hemorrhoids which could be a source of bleed. He was discharged with plan to get outpatient capsule endoscopy to look for small bowel source. After discharge he did not get capsule endoscopy. He was seen by Dr. Chance in clinic on 01/12 but did not get his scheduled IV iron for insurance reasons. Since discharge he reports daily bloody bowel movements. Has pictures on his phone with bright red blood in toilet bowl, cannot visualize color or consistency of actual stool. In the ED he was afebrile, vitals stable. Hgb was 4.6, down from 8.9 at time of last discharge. Labs otherwise unremarkable. ROS He reports: Fevers and night sweats. Nausea. Tension-type headache gradually worsening in quality today. Dry cough today. Heart palpitations today. Mid-back aching pain today. He denies: Chills, weight loss, anorexia, dysphagia, odynophagia, dizziness, vertigo, vomiting, hematemesis, abdominal pain, chest pain or pressure, productive cough, dyspnea, dysuria, hematuria. PMH/Family/Social Past Medical History Chronic lower GI bleed Iron deficiency anemia Medications Current Medications Pantoprazole 80 mg/Sodium Chloride 100 ml @ 10 mls/hr ONCE STAT IV Last administered on 01/25/19at 10:37; Admin Dose 10 MLS/HR; Start 01/25/19 at 10:37; Stop 01/25/19 at 20:36 Sodium Chloride 1,000 ml @ 80 mls/hr [id number] IV ; Start 01/25/19 at 12:36; Stop 01/26/19 at 01:05 Ondansetron HCl (Zofran Inj) 4 mg ER BRIDGE PRN IV NAUSEA/VOMITING; Start 01/25/19 at 13:00; Stop 01/26/19 at 12:59 Acetaminophen (Tylenol Tab) 650 mg ER BRIDGE PRN PO .MILD PAIN 1-3 OR TEMP; Start 01/25/19 at 13:00; Stop 01/26/19 at 12:59 Coded Allergies: No Known Allergy (Unverified , 01/04/19) Past Surgical History Tonsillectomy R knee surgery R port-a-cath placement (Oct 2018) Past Surgical Hx: other Family History Significant Family History: no pertinent family hx Social History Alcohol Use: none Smoking Status: Never smoker Drug Use: none Exam/Review of Systems Vital Signs Vitals Vital Signs Date Temp Pulse Resp B/P (MAP) Pulse Ox O2 O2 Flow FiO2 Time Delivery Rate 01/25/19 98.2 102 19 111/59 100 15:07 (76) 01/25/19 Room Air 14:39 01/25/19 2 10:46 Exam Exam Gen: Pale, fatigued appearing man in no acute distress. Eyes: PERRL, no icterus, pale conjunctivae. HEENT: Moist mucous membranes, clear oropharynx Neck: Elevated JVP. No lymphadenopathy or tenderness. Card: Tachy, hyperdynamic. No murmurs appreciated. Pulm: Clear to auscultation bilaterally, no crackles Abd: Soft, nontender, nondistended. No hepatosplenomegaly. Ext: No cyanosis/clubbing/edema Skin: very pale, cool. Rectal: Paper towel over anus spotted with dark brown blood. No visible external hemorrhoids. MADDIE HOYOS MD January 25, 2019 15:56
[2019-01-25] MEDS: SOD CHLORIDE 0.9% 1,000 ML IV SCH ×2 (16:12→23:05)
[2019-01-25] MEDS: ACETAMINOPHEN 325 MG TAB PO PRN (16:27)
--- NOTE | 2019-01-25 16:36 | CONS ---
Assessment/Plan Assessment/Plan Hospital Course (Demo Recall) Summary Assessment and Plan: Assessment: Recurrent lower GI bleed Severe iron deficiency anemia Questionable history of colonic AVMs Plan: Given rectal bleeding is described as BRBPR- bleeding likely lower in the GI tract therefore we will order stat NM bleeding scan to hopefully localize area of bleeding, and we will plan for re-peat colonoscopy Clear liquid diet N.p.o. after 0800 01/26 Endoscopy - risks/benefits/alternatives/indications of procedure and sedation/anesthesia discussed with patient who states understanding and gives informed consent to proceed. Further recommendations based on clinical course Monitor labs transfuse for HGB less than 7.5 Patient seen in collaboration with Dr. eHrnandez CC: YOAV HERNANDEZ MD ; Consultation Date/Type/Reason Admit Date/Time January 25, 2019 at 12:37 Date of Consultation: January 25, 2019 Type of Consult GI Reason for Consultation Severe anemia Date/Time of Note DATE: 01/25/19 TIME: 16:26 Hx of Present Illness This is a 53-year-old male with recurrent chronic GI bleed and subsequent iron deficiency anemia who returns to the hospital with progressive fatigue and weakness on admission patient found to have profound microcytic anemia. Mr. Fregoso has been hospitalized on multiple occasions with work-up including EGD/colonoscopy negative for bleed as well as nuclear med scan which was negative for increased uptake, and CT enterography which was noted to be unremarkable. Last admission he was evaluated by surgery who deemed hemorrhoids were not significant enough to be real source of bleed. He was discharged with plan to follow-up as an outpatient for capsule endoscopy to further assess small bowel. However after discharge he was unable to follow-up for outpatient capsule endoscopy 2/2 to insurance issues. Of note he verbalizes since the beginning of January he has had bloody stools described as bright red. He denies melena, hematemesis, nausea, vomiting, pyrosis, or unintentional weight loss. Review of Systems: A 12 system, review was conducted and is negative except as noted in the HPI or here. Past Medical History Home Meds Active Scripts Pantoprazole* (Protonix*) 40 Mg Tablet., 40 MG PO DAILY for 30 Days, #30 TAB 2 Refills Prov:ALYCE DECKER 01/08/19 Reported Medications Ferrous Sulfate* (Ferrous Sulfate*) 325 Mg Tabec, 325 MG PO DAILY, TAB 01/25/19 Medications Current Medications Sodium Chloride 1,000 ml @ 80 mls/hr [id number] IV Last administered on 01/25/19at 16:12; Admin Dose 80 MLS/HR; Start 01/25/19 at 12:36; Stop 01/26/19 at 01:05 Ondansetron HCl (Zofran Inj) 4 mg ER BRIDGE PRN IV NAUSEA/VOMITING; Start 01/25/19 at 13:00; Stop 01/26/19 at 12:59 Acetaminophen (Tylenol Tab) 650 mg ER BRIDGE PRN PO .MILD PAIN 1-3 OR TEMP; Start 01/25/19 at 13:00; Stop 01/26/19 at 12:59 IV Flush (NS 3 ml) 3 ml PER PROTOCOL IV ; Start 01/25/19 at 16:00 Ondansetron HCl (Zofran Inj) 4 mg Q6H PRN IV NAUSEA/VOMITING; Start 01/25/19 at 16:00 Acetaminophen (Tylenol Tab) 650 mg Q6H PRN PO .PAIN 1-3 OR TEMP; Start 01/25/19 at 16:00 Pantoprazole (Protonix Iv) 40 mg BID IV ; Start 01/25/19 at 21:00 Allergies: Coded Allergies: No Known Allergy (Unverified , 01/04/19) Past Surgical History Past Surgical Hx: other Social History Alcohol Use: none Smoking Status: Never smoker Drug Use: none Exam/Review of Systems Exam Vitals Vital Signs Date Temp Pulse Resp B/P (MAP) Pulse Ox O2 O2 Flow FiO2 Time Delivery Rate 01/25/19 98.2 102 19 111/59 100 15:07 (76) 01/25/19 Room Air 14:39 01/25/19 2 10:46 Exam PHYSICAL EXAMINATION: GENERAL: Pale, alert & oriented x 3, in no acute distress SKIN: No lesions, no stigmata chronic liver disease, no evidence of bleeding diathesis LYMPHATIC: No palpable lymphadenopathy. HEAD: Normocephalic, atraumatic, no tenderness. EYES: Pupils equal reactive to light and accommodation, full extraocular movements, sclera clear, non-icteric, no discharge. EARS/NOSE AND THROAT: Ears normal, nose normal, oropharynx normal, oral membranes well hydrated without lesions. NECK: Supple, no masses CHEST: Inspection within normal limits. CARDIOVASCULAR: Heart: Regular rate and rhythm RESPIRATORY: Lungs clear to auscultation GASTROINTESTINAL AND LIVER: Abdomen: Soft, non tenderness, non-distended, no hernias, no rebound tenderness, normoactive bowel sounds. Rectal: Deferred. EXTREMITIES: No cyanosis, clubbing or edema. Results Result Diagram: 01/25/19 1037 01/25/19 1037 Results 24hrs Laboratory Tests Test 01/25/19 10:37 White Blood Count 6.9 # Red Blood Count 2.19 #L Hemoglobin 4.6 #*L Hematocrit 17.0 #L Mean Corpuscular Volume 77.6 L Mean Corpuscular Hemoglobin 21.0 L Mean Corpuscular Hemoglobin Concent 27.1 L Red Cell Distribution Width 20.2 H Platelet Count 252 # Mean Platelet Volume 10.4 Immature Granulocytes % 0.300 Neutrophils % Segmented Neutrophils % (Manual) 77 Band Neutrophils % (Manual) 1 Lymphocytes % Lymphocytes % (Manual) 15 Monocytes % Monocytes % (Manual) 5 Eosinophils % Basophils % Basophils % (Manual) 2 Nucleated Red Blood Cells % 0.0 Immature Granulocytes # 0.020 Neutrophils # Neutrophils # (Manual) 5.3 Band Neutrophils # 0.0 Lymphocytes (Manual) 1.0 Lymphocytes # Monocytes # Monocytes # (Manual) 0.3 Eosinophils # Basophils # Basophils # (Manual) 0.1 H Nucleated Red Blood Cells # Platelet Estimate NORMAL Giant Platelets 1 H Polychromasia 3+ Hypochromasia 3+ Poikilocytosis 1+ Anisocytosis 1+ Microcytosis 1+ Prothrombin Time 14.6 Prothrombin Time Ratio 1.1 INR International Normalized Ratio 1.13 Activated Partial Thromboplast Time 25.4 Sodium Level 137 Potassium Level 3.7 Chloride Level 100 Carbon Dioxide Level 29 Anion Gap 8 Blood Urea Nitrogen 13 Creatinine 0.76 Est Glomerular Filtrat Rate mL/min > 60 Glucose Level 129 Calcium Level 8.6 Total Bilirubin 0.6 Direct Bilirubin 0.00 Indirect Bilirubin 0.6 Aspartate Amino Transf (AST/SGOT) 15 Alanine Aminotransferase (ALT/SGPT) 33 Alkaline Phosphatase 72 Troponin I < 0.012 Total Protein 6.3 Albumin 3.6 Globulin 2.70 Albumin/Globulin Ratio 1.33 Medications Medication Current Medications Sodium Chloride 1,000 ml @ 80 mls/hr [id number] IV Last administered on 01/25/19at 16:12; Admin Dose 80 MLS/HR; Start 01/25/19 at 12:36; Stop 01/26/19 at 01:05 Ondansetron HCl (Zofran Inj) 4 mg ER BRIDGE PRN IV NAUSEA/VOMITING; Start 01/25/19 at 13:00; Stop 01/26/19 at 12:59 Acetaminophen (Tylenol Tab) 650 mg ER BRIDGE PRN PO .MILD PAIN 1-3 OR TEMP; Start 01/25/19 at 13:00; Stop 01/26/19 at 12:59 IV Flush (NS 3 ml) 3 ml PER PROTOCOL IV ; Start 01/25/19 at 16:00 Ondansetron HCl (Zofran Inj) 4 mg Q6H PRN IV NAUSEA/VOMITING; Start 01/25/19 at 16:00 Acetaminophen (Tylenol Tab) 650 mg Q6H PRN PO .PAIN 1-3 OR TEMP; Start 01/25/19 at 16:00 Pantoprazole (Protonix Iv) 40 mg BID IV ; Start 01/25/19 at 21:00 JEET VALDOVINOS January 25, 2019 16:36
[2019-01-25] MEDS ORDERED: BISACODYL (EC) 5 MG TAB PO ONE (17:00)
[2019-01-25] MEDS ORDERED: POLYETHYLENE GLYCOL 3350 119 GM POWDER PO ONE (18:30)
[2019-01-25] MEDS ORDERED: MAGNESIUM CITRATE 300 ML BTL PO ONE (18:30)
[2019-01-25 20:00] VITALS: BP 111/60; PULSE 89; RESP 18
[2019-01-25 20:05] VITALS: PULSE 88
[2019-01-25] MEDS: PANTOPRAZOLE 40 MG INJ IV SCH (23:08)
[2019-01-26] VITALS (19 sets, daily range): BP systolic 82–138; BP diastolic 42–70; PULSE 78–101; RESP 18–42
[2019-01-26] MEDS ORDERED: POLYETHYLENE GLYCOL 3350 119 GM POWDER PO ONE (06:00)
[2019-01-26] MEDS: ACETAMINOPHEN 325 MG TAB PO PRN (07:52)
[2019-01-26] MEDS ORDERED: BISACODYL (EC) 5 MG TAB PO ONE (08:00)
[2019-01-26] MEDS ORDERED: SOD CHLORIDE 0.9% 250 ML IV* ONE (08:29)
[2019-01-26] MEDS: PANTOPRAZOLE 40 MG INJ IV SCH ×2 (08:50→21:48)
--- NOTE | 2019-01-26 11:11 | PN ---
Date/Time of Note Date/Time of Note DATE: 01/26/19 TIME: 11:09 Assessment/Plan VTE Prophylaxis Risk score (from Ns)>0 risk: 3 SCD applied (from Ns): Yes Pharmacological prophylaxis: NA/contraindicated Pharm contraindication: bleeding Lines/Catheters IV [facility] A CATH Urinary Cath still in place: No Assessment/Plan Assessment/Plan 53 yo man history of GI bleed and iron-def anemia presents with severe anemia #Iron deficiency anemia - Likely the cause of headache, palpitations, weakness. - Transfuse to Hgb>7 or per symptoms. 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 - Also IV ferrlicit if needed. #GI bleed Etiology: - Hemorrhoids: None visible on colonoscopy 09/2018, evaluation by Dr. Magallanes 01/05, or my evaluation on admission. - colon: Again, negative colonoscopy 09/2018 - Small bowel: Plan last time was for patient to get outpatient capsule endoscopy. I personally believe EGD with push enteroscopy might be a better idea. Plan: - Consult GI. - Protonix BID - Repeat NM scan again shows no bleeding. Tentative plan for EGD+colonoscopy again. DVT: SCDs GI: PPI BID Result Diagram: 01/26/19 0646 01/26/19 0646 Subjective 24 Hr Interval Summary Free Text/Dictation Patient getting third unit PRBCs transfused currently. at bedside. I updated them both on the plan. Patient reports feeling slightly better. Had small volume bloody bowel movement again today around 10 am. Exam/Review of Systems Exam Vitals Vital Signs Date Temp Pulse Resp B/P (MAP) Pulse Ox O2 O2 Flow FiO2 Time Delivery Rate 01/26/19 99.0 08:45 01/26/19 99 08:01 01/26/19 20 113/54 94 Room Air 07:28 (73) 01/25/19 2 10:46 Intake and Output 01/25/19 01/25/19 01/26/19 1515:00 23:00 07:00 IntakeIntake Total 830 ml OutputOutput Total 800 ml BalanceBalance 30 ml Exam Gen: Pale, fatigued appearing man in no acute distress. Eyes: PERRL, no icterus, HEENT: Moist mucous membranes, clear oropharynx Neck: No lymphadenopathy or tenderness. Card: Regular rate and rhythm Pulm: Clear to auscultation bilaterally, no crackles Abd: Soft, nontender, nondistended. No hepatosplenomegaly. Ext: No cyanosis/clubbing/edema Results Results 24hrs Laboratory Tests Test 01/26/19 06:46 White Blood Count 9.0 # Red Blood Count 2.84 #L Hemoglobin 6.8 #*L Hematocrit 22.5 #L Mean Corpuscular Volume 79.2 L Mean Corpuscular Hemoglobin 23.9 L Mean Corpuscular Hemoglobin Concent 30.2 L Red Cell Distribution Width 20.0 H Platelet Count 274 Mean Platelet Volume 11.2 H Immature Granulocytes % 0.300 Neutrophils % 85.3 H Lymphocytes % 6.4 L Monocytes % 7.0 Eosinophils % 0.7 Basophils % 0.3 Nucleated Red Blood Cells % 0.0 Immature Granulocytes # 0.030 Neutrophils # 7.7 H Lymphocytes # 0.6 L Monocytes # 0.6 Eosinophils # 0.1 Basophils # 0.0 Nucleated Red Blood Cells # 0.0 Sodium Level 143 Potassium Level 3.6 Chloride Level 105 Carbon Dioxide Level 29 Anion Gap 9 Blood Urea Nitrogen 12 Creatinine 0.81 Est Glomerular Filtrat Rate mL/min > 60 Glucose Level 140 Hemoglobin A1c 5.2 Calcium Level 8.6 Phosphorus Level 2.8 Magnesium Level 2.5 Total Bilirubin 1.4 H Direct Bilirubin 0.00 Indirect Bilirubin 1.4 H Aspartate Amino Transf (AST/SGOT) 12 L Alanine Aminotransferase (ALT/SGPT) 30 Alkaline Phosphatase 85 Total Protein 6.7 Albumin 3.7 Globulin 3.00 Albumin/Globulin Ratio 1.23 Medications Medication Current Medications Ondansetron HCl (Zofran Inj) 4 mg ER BRIDGE PRN IV NAUSEA/VOMITING; Start 01/25/19 at 13:00; Stop 01/26/19 at 12:59 Acetaminophen (Tylenol Tab) 650 mg ER BRIDGE PRN PO .MILD PAIN 1-3 OR TEMP Last administered on 01/26/19at 07:52; Admin Dose 650 MG; Start 01/25/19 at 13:00; Stop 01/26/19 at 12:59 IV Flush (NS 3 ml) 3 ml PER PROTOCOL IV ; Start 01/25/19 at 16:00 Ondansetron HCl (Zofran Inj) 4 mg Q6H PRN IV NAUSEA/VOMITING; Start 01/25/19 at 16:00 Acetaminophen (Tylenol Tab) 650 mg Q6H PRN PO .PAIN 1-3 OR TEMP; Start 01/25/19 at 16:00 Pantoprazole (Protonix Iv) 40 mg BID IV Last administered on 01/26/19at 08:50; Admin Dose 40 MG; Start 01/25/19 at 21:00 MADDIE HOYOS MD January 26, 2019 11:11
--- NOTE | 2019-01-26 15:41 | PREAC ---
Date/Time of Note Date/Time of Note DATE: 01/26/19 TIME: 15:39 Anesthesia Eval and Record Evaluation Time Pre-Procedure Interview DATE: 01/26/19 TIME: 15:39 Age 53 Sex male NPO: 8 hrs Preoperative diagnosis GI bleed Planned procedure colonoscopy Past Medical History Past Medical History: Includes GI: Other (GI bleed) Heme: Anemia Surgery & Anesthesia Issues No known issue Meds Anticoagulation: No Beta Kerry within 24 hr: No Reason Beta Kerry not given: Pt. not on B-Kerry Active Scripts Pantoprazole* (Protonix*) 40 Mg Tablet.dr, 40 MG PO DAILY for 30 Days, #30 TAB 2 Refills Prov:ALYCE DECKER S. 01/08/19 Reported Medications Ferrous Sulfate* (Ferrous Sulfate*) 325 Mg Tabec, 325 MG PO DAILY, TAB 01/25/19 Current Medications IV Flush (NS 3 ml) 3 ml PER PROTOCOL IV ; Start 01/25/19 at 16:00 Ondansetron HCl (Zofran Inj) 4 mg Q6H PRN IV NAUSEA/VOMITING; Start 01/25/19 at 16:00 Acetaminophen (Tylenol Tab) 650 mg Q6H PRN PO .PAIN 1-3 OR TEMP; Start 01/25/19 at 16:00 Pantoprazole (Protonix Iv) 40 mg BID IV Last administered on 01/26/19at 08:50; Admin Dose 40 MG; Start 01/25/19 at 21:00 Meds reviewed: Yes Allergies Coded Allergies: No Known Allergy (Unverified , 01/04/19) Allergies Reviewed: Yes Labs/Studies Labs Reviewed: Reviewed by anesthesiologist (received blood transfusion for Hgb 6.8) Result Diagram: 01/26/19 0646 01/26/19 0646 Laboratory Tests 01/26/19 06:46 test: N/A Pre-procedure Exam Last vitals Vital Signs Date Temp Pulse Resp B/P (MAP) Pulse Ox O2 O2 Flow FiO2 Time Delivery Rate 01/26/19 98.6 85 20 111/60 97 Room Air 15:01 (77) 01/25/19 2 10:46 Airway: Adequate mouth opening, Adequate thyromental dist Mallampati: Mallampati II Teeth: Normal Lung: Normal Heart: Normal ASA Physical Status ASA physical status: 2 Emergency: None Planned Anesthetic General/MAC: Mask Planned Pain Management Parenteral pain med Pre-operative Attestations Prior to commencing anesthesia and surgery, the patient was re-evaluated, there was verification of: *The patient's identity *The results of appropriate recent lab work and preoperative vital signs *The above evaluation not changing prior to induction *Anesthetic plan, risk benefits, alternative and complications discussed with patient/family; questions answered; patient/family understands, accepts and wishes to proceed. ELIZ LEO MD January 26, 2019 15:41
[2019-01-26] MEDS ORDERED: PROPOFOL 40 ML ONE (15:42)
[2019-01-26] MEDS ORDERED: LIDOCAINE 2% (SDV) 5 ML INJ ONE (15:42)
[2019-01-26] MEDS ORDERED: EPHEDrine 25 MG/5 ML SYG ONE (16:07)
--- NOTE | 2019-01-26 16:14 | PAC ---
Date/Time of Note Date/Time of Note DATE: 01/26/19 TIME: 16:13 Post-Anesthesia Notes Post-Anesthesia Note Last documented vital signs Vital Signs Date Temp Pulse Resp B/P (MAP) Pulse Ox O2 O2 Flow FiO2 Time Delivery Rate 01/26/19 98.6 85 20 111/60 97 Room Air 15:01 (77) 01/25/19 2 10:46 Activity: WNL Respiratory function: WNL Cardiovascular function: WNL Mental status: Baseline Pain reasonably controlled: Yes Hydration appropriate: Yes Nausea/Vomiting absent: Yes Comments BP: 98/57 HR: 80 RR: 15 T: 98 SaO2: 100% ELIZ LEO MD January 26, 2019 16:14
[2019-01-26] MEDS ORDERED: EPHEDrine 25 MG/5 ML SYG IV PRN (16:30)
[2019-01-26] MEDS ORDERED: ONDANSETRON 4 MG INJ IV PRN (16:30)
[2019-01-26] MEDS ORDERED: BUPIVACAINE 0.25%/EPI (SDV) 30 ML INJ ONE (18:09)
--- NOTE | 2019-01-26 18:11 | CONS ---
Assessment/Plan Assessment/Plan Assessment/Plan (Daily) Chronic anemia and recurrent lower GI bleeds likely secondary to hemorrhoids Discussed EUA and hemorrhoidectomy with the patient. All benefits, risks, alternatives discussed in detail. All questions were answered. The patient elects to proceed. Patient understands that it is possible that his hemorrhoids are not the source of bleed. However, due to his long work-up and significant clinical findings as well as history, it is likely that he is suffering from recurrent hemorrhoidal bleeding. Consultation Date/Type/Reason Admit Date/Time January 25, 2019 at 12:37 Date/Time of Note DATE: 01/26/19 TIME: 18:05 Hx of Present Illness This is a 53-year-old male with recurrent chronic GI bleed and subsequent iron deficiency anemia who returns to the hospital with progressive fatigue and weakness on admission patient found to have profound microcytic anemia. Patient has had multiple hospitalizations with extensive work-up including bleeding scans, EGD, colonoscopy. All have been negative. He also was underwent a CT enterography. Last admission he was evaluated and was seen by surgery, and was told that his hemorrhoids were not a significant enough to be a source of rectal bleed. He was to undergo an outpatient capsule endoscopy. He had persistent bright red blood stools since the beginning of January. He just underwent a colonoscopy and was found to be significant internal hemorrhoids. I was referred surgical consultation. Past Medical History Medical History: GERD Home Meds Active Scripts Pantoprazole* (Protonix*) 40 Mg Tablet.dr, 40 MG PO DAILY for 30 Days, #30 TAB 2 Refills Prov:ALYCE DECKER 01/08/19 Reported Medications Ferrous Sulfate* (Ferrous Sulfate*) 325 Mg Tabec, 325 MG PO DAILY, TAB 01/25/19 Medications Current Medications IV Flush (NS 3 ml) 3 ml PER PROTOCOL IV ; Start 01/25/19 at 16:00 Ondansetron HCl (Zofran Inj) 4 mg Q6H PRN IV NAUSEA/VOMITING; Start 01/25/19 at 16:00 Acetaminophen (Tylenol Tab) 650 mg Q6H PRN PO .PAIN 1-3 OR TEMP; Start 01/25/19 at 16:00 Pantoprazole (Protonix Iv) 40 mg BID IV Last administered on 01/26/19at 08:50; Admin Dose 40 MG; Start 01/25/19 at 21:00 Ondansetron HCl (Zofran Inj) 4 mg PACU ORDER PRN IV NAUSEA/VOMITING; Start 01/26/19 at 16:30; Stop 01/26/19 at 23:00 Ephedrine Sulfate 5 mg PACU ORDER PRN IV BLOOD PRESSURE SUPPORT; Start 01/26/19 at 16:30; Stop 01/26/19 at 23:00 Allergies: Coded Allergies: No Known Allergy (Unverified , 01/04/19) Past Surgical History Past Surgical Hx: no surgical history, other Family History Significant Family History: no pertinent family hx Social History Alcohol Use: none Smoking Status: Never smoker Drug Use: none Exam/Review of Systems Exam Vitals Vital Signs Date Temp Pulse Resp B/P (MAP) Pulse Ox O2 O2 Flow FiO2 Time Delivery Rate 01/26/19 84 23 104/60 94 Room Air 16:52 (75) 01/26/19 98.0 16:22 01/25/19 2 10:46 Intake and Output 01/25/19 01/25/19 01/26/19 1515:00 23:00 07:00 IntakeIntake Total 830 ml OutputOutput Total 800 ml BalanceBalance 30 ml Constitutional: alert, oriented, other (pale) Psych: no complaints Head: normocephalic Eyes: nl conjunctiva ENMT: nl external ears & nose Neck: supple, non-tender Respiratory: clear to auscultation Cardiovascular: regular rate and rhythm Gastrointestinal: soft, non-tender Extremities: normal pulses Neurological: [employer]GICAL [employer] II-XII intact, nl mental status, nl speech, nl strength Skin: nl turgor, rash or lesions Lymph: nl lymph nodes Results Result Diagram: 01/26/19 1722 01/26/19 0646 Results 24hrs Laboratory Tests Test 01/26/19 06:46 01/26/19 17:22 White Blood Count 9.0 # Red Blood Count 2.84 #L Hemoglobin 6.8 #*L 6.5 *L Hematocrit 22.5 #L 21.6 L Mean Corpuscular Volume 79.2 L Mean Corpuscular Hemoglobin 23.9 L Mean Corpuscular Hemoglobin Concent 30.2 L Red Cell Distribution Width 20.0 H Platelet Count 274 Mean Platelet Volume 11.2 H Immature Granulocytes % 0.300 Neutrophils % 85.3 H Lymphocytes % 6.4 L Monocytes % 7.0 Eosinophils % 0.7 Basophils % 0.3 Nucleated Red Blood Cells % 0.0 Immature Granulocytes # 0.030 Neutrophils # 7.7 H Lymphocytes # 0.6 L Monocytes # 0.6 Eosinophils # 0.1 Basophils # 0.0 Nucleated Red Blood Cells # 0.0 Sodium Level 143 Potassium Level 3.6 Chloride Level 105 Carbon Dioxide Level 29 Anion Gap 9 Blood Urea Nitrogen 12 Creatinine 0.81 Est Glomerular Filtrat Rate mL/min > 60 Glucose Level 140 Hemoglobin A1c 5.2 Calcium Level 8.6 Phosphorus Level 2.8 Magnesium Level 2.5 Total Bilirubin 1.4 H Direct Bilirubin 0.00 Indirect Bilirubin 1.4 H Aspartate Amino Transf (AST/SGOT) 12 L Alanine Aminotransferase (ALT/SGPT) 30 Alkaline Phosphatase 85 Total Protein 6.7 Albumin 3.7 Globulin 3.00 Albumin/Globulin Ratio 1.23 Imaging Imaging Patient: CANDI JENKINS : 1965 Age: 53 Sex: M MR #: [id number] DOS: 01/25/19 0000 Ordering MD: JEET VALDOVINOS NP Location: [facility] Room/Bed: [facility] AMENDMENT: 01/26/2019 9:57:03 AM Tanika Magallanes Md Additional delayed images of the abdomen were obtained at 12 hours post injection, which do not reveal new abnormal areas of increased activity. PROCEDURE: Nuclear medicine gastrointestinal bleed scan CLINICAL INDICATION: Hematochezia, anemia, gastrointestinal bleed TECHNIQUE: 22.4 mCi technetium 99m labeled red blood cells were injected intravenously. Anterior images of the abdomen were obtained up to 1 minute post injection and up to 120 minutes post injection. At this time anterior and posterior images of the abdomen and pelvis were performed COMPARISON: [place] 01/06/2019 FINDINGS: There is no evidence of active lower gastrointestinal bleeding seen. Physiologic activity is seen in the liver, spleen, blood vessels and bladder. IMPRESSION: No evidence of active lower gastrointestinal bleeding seen. RPTAT: HJES .Tanika Magallanes MD, Date Time Electronically viewed and signed by .Tanika Magallanes MD, on 01/26/2019 09:57 .L/ CC: JEET VALDOVINOS [phone] Medications Medication Current Medications IV Flush (NS 3 ml) 3 ml PER PROTOCOL IV ; Start 01/25/19 at 16:00 Ondansetron HCl (Zofran Inj) 4 mg Q6H PRN IV NAUSEA/VOMITING; Start 01/25/19 at 16:00 Acetaminophen (Tylenol Tab) 650 mg Q6H PRN PO .PAIN 1-3 OR TEMP; Start 01/25/19 at 16:00 Pantoprazole (Protonix Iv) 40 mg BID IV Last administered on 01/26/19at 08:50; Admin Dose 40 MG; Start 01/25/19 at 21:00 Ondansetron HCl (Zofran Inj) 4 mg PACU ORDER PRN IV NAUSEA/VOMITING; Start 01/26/19 at 16:30; Stop 01/26/19 at 23:00 Ephedrine Sulfate 5 mg PACU ORDER PRN IV BLOOD PRESSURE SUPPORT; Start 01/26/19 at 16:30; Stop 01/26/19 at 23:00 JOVITA NOLASCO MD January 26, 2019 18:11
[2019-01-27] VITALS (23 sets, daily range): BP systolic 84–130; BP diastolic 51–75; PULSE 73–105; RESP 16–22
[2019-01-27] MEDS ORDERED: GUAIFENESIN/DM 5ML CUP PO PRN (00:40)
[2019-01-27] MEDS: PANTOPRAZOLE 40 MG INJ IV SCH ×2 (08:36→20:57)
--- NOTE | 2019-01-27 14:17 | PN ---
Date/Time of Note Date/Time of Note DATE: 01/27/19 TIME: 14:14 Assessment/Plan Lines/Catheters IV Catheter Type (from Nrs): Peripheral IV Bah in Place (from Nrs): No Assessment/Plan Assessment/Plan Will proceed w/ hemorrhoidectomy today HCT stable and HD stable Discussed reported findings from Priscila Laboy w/ Dr. Hernandez He finds no evidence of reported AVM He feels strongly that the source of bleeding is hemorrhoidal Will proceed as no other source of bleeding has been identified despite extensive past w/u Subjective 24 Hr Interval Summary Constitutional: no complaints Feeding: NPO Exam/Review of Systems Vital Signs Vitals Vital Signs Date Temp Pulse Resp B/P (MAP) Pulse Ox O2 O2 Flow FiO2 Time Delivery Rate 01/27/19 73 14:07 01/27/19 98.3 18 101/57 96 Room Air 11:22 (72) 01/25/19 2 10:46 Intake and Output 01/26/19 01/26/19 01/27/19 1515:00 23:00 07:00 IntakeIntake Total 560 ml 970 ml OutputOutput Total 1100 ml BalanceBalance 560 ml -130 ml Exam Constitutional: alert, oriented, well developed Gastrointestinal: soft, non-tender Results Result Diagram: 01/27/19 0949 01/27/19 0949 JOVITA NOLASCO MD January 27, 2019 14:17
--- NOTE | 2019-01-27 14:56 | PN ---
Date/Time of Note Date/Time of Note DATE: 01/27/19 TIME: 14:51 Assessment/Plan VTE Prophylaxis Risk score (from Ns)>0 risk: 4 SCD applied (from Ns): Yes Pharmacological prophylaxis: other (scds) Lines/Catheters [facility]): Peripheral IV Urinary Cath still in place: No Assessment/Plan Hospital Course Summary Assessment and Plan: Assessment: Recurrent lower GI bleed Colonoscopy 01/26/2019 Mild diverticulosis of the left colon Small 4 mm questionable AVM descending colon, post APC Moderate to large internal hemorrhoids likely source of hematochezia Normal terminal ileum at least 30 cm Otherwise normal colonoscopy to cecum Severe iron deficiency anemia Questionable history of colonic AVMs Plan: Plan for hemorrhoidectomy today Monitor labs transfuse for HGB less than 7.5- multiple antibodies, Caution Patient seen in collaboration with Dr. Hernandez Subjective: Course reviewed with nursing staff Patient interviewed and examined All labs, imaging and other results reviewed The patient resting in bed, currently NPO for surgery today No c/o n/v or abd pain. Discussed results of colonoscopy PHYSICAL EXAMINATION: GENERAL: Pale, alert & oriented x 3, in no acute distress SKIN: No lesions, no stigmata chronic liver disease, no evidence of bleeding diathesis LYMPHATIC: No palpable lymphadenopathy. HEAD: Normocephalic, atraumatic, no tenderness. EYES: Pupils equal reactive to light and accommodation, full extraocular movements, sclera clear, non-icteric, no discharge. EARS/NOSE AND THROAT: Ears normal, nose normal, oropharynx normal, oral membranes well hydrated without lesions. NECK: Supple, no masses CHEST: Inspection within normal limits. CARDIOVASCULAR: Heart: Regular rate and rhythm RESPIRATORY: Lungs clear to auscultation GASTROINTESTINAL AND LIVER: Abdomen: Soft, non tenderness, non-distended, no hernias, no rebound tenderness, normoactive bowel sounds. Rectal: Deferred. EXTREMITIES: No cyanosis, clubbing or edema. Result Diagram: 01/27/19 0949 01/27/19 0949 Results 24hrs Laboratory Tests Test 01/26/19 17:22 01/27/19 07:23 01/27/19 09:49 Hemoglobin 6.5 *L 8.5 #L Hematocrit 21.6 L 27.5 #L Lab Scanned Report BLOOD TRANSFUSION White Blood Count 9.5 Red Blood Count 3.37 L Mean Corpuscular Volume 81.6 L Mean Corpuscular Hemoglobin 25.2 L Mean Corpuscular 30.9 L Hemoglobin Concent Red Cell Distribution Width 19.3 H Platelet Count 181 # Mean Platelet Volume Immature Granulocytes % 0.400 Neutrophils % 75.2 Lymphocytes % 14.2 L Monocytes % 7.9 Eosinophils % 1.9 Basophils % 0.4 Nucleated Red Blood Cells % 0.2 H Immature Granulocytes # 0.040 H Neutrophils # 7.1 Lymphocytes # 1.3 Monocytes # 0.8 Eosinophils # 0.2 Basophils # 0.0 Nucleated Red Blood Cells # 0.0 Sodium Level 143 Potassium Level 3.6 Chloride Level 105 Carbon Dioxide Level 29 Anion Gap 9 Blood Urea Nitrogen 12 Creatinine 0.89 Est Glomerular Filtrat > 60 Rate mL/min Glucose Level 107 Calcium Level 8.5 Phosphorus Level 4.1 Magnesium Level 2.5 Total Bilirubin 1.6 H Direct Bilirubin 0.00 Indirect Bilirubin 1.6 H Aspartate Amino 12 L Transf (AST/SGOT) Alanine 29 Aminotransferase (ALT/SGPT) Alkaline Phosphatase 87 Total Protein 6.5 Albumin 3.5 Globulin 3.00 Albumin/Globulin Ratio 1.16 Exam/Review of Systems Exam Vitals Vital Signs Date Temp Pulse Resp B/P (MAP) Pulse Ox O2 O2 Flow FiO2 Time Delivery Rate 01/27/19 73 14:07 01/27/19 98.3 18 101/57 96 Room Air 11:22 (72) 01/25/19 2 10:46 Intake and Output 01/26/19 01/26/19 01/27/19 1414:59 22:59 06:59 IntakeIntake Total 560 ml 970 ml OutputOutput Total 1100 ml BalanceBalance 560 ml -130 ml Results Results 24hrs Laboratory Tests Test 01/26/19 17:22 01/27/19 07:23 01/27/19 09:49 Hemoglobin 6.5 *L 8.5 #L Hematocrit 21.6 L 27.5 #L Lab Scanned Report BLOOD TRANSFUSION White Blood Count 9.5 Red Blood Count 3.37 L Mean Corpuscular Volume 81.6 L Mean Corpuscular Hemoglobin 25.2 L Mean Corpuscular 30.9 L Hemoglobin Concent Red Cell Distribution Width 19.3 H Platelet Count 181 # Mean Platelet Volume Immature Granulocytes % 0.400 Neutrophils % 75.2 Lymphocytes % 14.2 L Monocytes % 7.9 Eosinophils % 1.9 Basophils % 0.4 Nucleated Red Blood Cells % 0.2 H Immature Granulocytes # 0.040 H Neutrophils # 7.1 Lymphocytes # 1.3 Monocytes # 0.8 Eosinophils # 0.2 Basophils # 0.0 Nucleated Red Blood Cells # 0.0 Sodium Level 143 Potassium Level 3.6 Chloride Level 105 Carbon Dioxide Level 29 Anion Gap 9 Blood Urea Nitrogen 12 Creatinine 0.89 Est Glomerular Filtrat > 60 Rate mL/min Glucose Level 107 Calcium Level 8.5 Phosphorus Level 4.1 Magnesium Level 2.5 Total Bilirubin 1.6 H Direct Bilirubin 0.00 Indirect Bilirubin 1.6 H Aspartate Amino 12 L Transf (AST/SGOT) Alanine 29 Aminotransferase (ALT/SGPT) Alkaline Phosphatase 87 Total Protein 6.5 Albumin 3.5 Globulin 3.00 Albumin/Globulin Ratio 1.16 Medications Medication Current Medications IV Flush (NS 3 ml) 3 ml PER PROTOCOL IV ; Start 01/25/19 at 16:00 Ondansetron HCl (Zofran Inj) 4 mg Q6H PRN IV NAUSEA/VOMITING; Start 01/25/19 at 16:00 Acetaminophen (Tylenol Tab) 650 mg Q6H PRN PO .PAIN 1-3 OR TEMP Last admini stered on 01/27/19at 04:17; Admin Dose 650 MG; Start 01/25/19 at 16:00 Pantoprazole (Protonix Iv) 40 mg BID IV Last administered on 01/27/19at 08:36; Admin Dose 40 MG; Start 01/25/19 at 21:00 Guaifenesin/ Dextromethorphan (Robitussin Dm Liquid Cup) 10 ml Q6H RESP THERAPY PRN PO COUGH Last administered on 01/27/19at 01:08; Admin Dose 10 ML; Start 01/27/19 at 00:40 JEET VALDOVINOS January 27, 2019 14:56
--- NOTE | 2019-01-27 15:30 | PN ---
Date/Time of Note Date/Time of Note DATE: 01/27/19 TIME: 15:26 Assessment/Plan VTE Prophylaxis Risk score (from Ns)>0 risk: 4 SCD applied (from [place]): Yes Pharmacological prophylaxis: NA/contraindicated Pharm contraindication: bleeding Lines/Catheters IV Catheter Type (from [facility]): Peripheral IV Urinary Cath still in place: No Assessment/Plan Assessment/Plan 53 yo man history of GI bleed and iron-def anemia presents with severe anemia #Iron deficiency anemia - Likely the cause of headache, palpitations, weakness. - Transfuse to Hgb>7 or per symptoms. 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 - Also IV ferrlicit if needed. #GI bleed - Etiology is likely internal hemorrhoids seen on colonoscopy 01/[address] Hernandez - To OR for hemorrhoidectomy today by Dr. Medina. DVT: SCDs GI: PPI Result Diagram: 01/27/19 0949 01/27/19 0949 Subjective 24 Hr Interval Summary Free Text/Dictation Patient got EGD and colonoscopy yesterday. Plan for hemorrhoidectomy today. Patient continues to have rectal bleeding, including today at 11:30 am. Exam/Review of Systems Exam Vitals Vital Signs Date Temp Pulse Resp B/P (MAP) Pulse Ox O2 O2 Flow FiO2 Time Delivery Rate 01/27/19 73 14:07 01/27/19 98.3 18 101/57 96 Room Air 11:22 (72) 01/25/19 2 10:46 Intake and Output 01/26/19 01/26/19 01/27/19 1515:00 23:00 07:00 IntakeIntake Total 560 ml 970 ml OutputOutput Total 1100 ml BalanceBalance 560 ml -130 ml Exam Gen: Fatigued appearing man in no acute distress. Eyes: PERRL, no icterus, HEENT: Moist mucous membranes, clear oropharynx Neck: No lymphadenopathy or tenderness. Card: Regular rate and rhythm Pulm: Clear to auscultation bilaterally, no crackles Abd: Soft, nontender, nondistended. No hepatosplenomegaly. Ext: No cyanosis/clubbing/edema Results Results 24hrs Laboratory Tests Test 01/26/19 17:22 01/27/19 07:23 01/27/19 09:49 Hemoglobin 6.5 *L 8.5 #L Hematocrit 21.6 L 27.5 #L Lab Scanned Report BLOOD TRANSFUSION White Blood Count 9.5 Red Blood Count 3.37 L Mean Corpuscular Volume 81.6 L Mean Corpuscular Hemoglobin 25.2 L Mean Corpuscular 30.9 L Hemoglobin Concent Red Cell Distribution Width 19.3 H Platelet Count 181 # Mean Platelet Volume Immature Granulocytes % 0.400 Neutrophils % 75.2 Lymphocytes % 14.2 L Monocytes % 7.9 Eosinophils % 1.9 Basophils % 0.4 Nucleated Red Blood Cells % 0.2 H Immature Granulocytes # 0.040 H Neutrophils # 7.1 Lymphocytes # 1.3 Monocytes # 0.8 Eosinophils # 0.2 Basophils # 0.0 Nucleated Red Blood Cells # 0.0 Sodium Level 143 Potassium Level 3.6 Chloride Level 105 Carbon Dioxide Level 29 Anion Gap 9 Blood Urea Nitrogen 12 Creatinine 0.89 Est Glomerular Filtrat > 60 Rate mL/min Glucose Level 107 Calcium Level 8.5 Phosphorus Level 4.1 Magnesium Level 2.5 Total Bilirubin 1.6 H Direct Bilirubin 0.00 Indirect Bilirubin 1.6 H Aspartate Amino 12 L Transf (AST/SGOT) Alanine 29 Aminotransferase (ALT/SGPT) Alkaline Phosphatase 87 Total Protein 6.5 Albumin 3.5 Globulin 3.00 Albumin/Globulin Ratio 1.16 Medications Medication Current Medications IV Flush (NS 3 ml) 3 ml PER PROTOCOL IV ; Start 01/25/19 at 16:00 Ondansetron HCl (Zofran Inj) 4 mg Q6H PRN IV NAUSEA/VOMITING; Start 01/25/19 at 16:00 Acetaminophen (Tylenol Tab) 650 mg Q6H PRN PO .PAIN 1-3 OR TEMP Last administered on 01/27/19at 04:17; Admin Dose 650 MG; Start 01/25/19 at 16:00 Pantoprazole (Protonix Iv) 40 mg BID IV Last administered on 01/27/19 08:36; Admin Dose 40 MG; Start 01/25/19 at 21:00 Guaifenesin/ Dextromethorphan (Robitussin Dm Liquid Cup) 10 ml Q6H RESP THERAPY PRN PO COUGH Last administered on 01/27/19 01:08; Admin Dose 10 ML; Start 01/27/19 at 00:40 MADDIE HOYOS MD January 27, 2019 15:30
--- NOTE | 2019-01-27 17:48 | SIPON ---
Date/Time of Note Date/Time of Note DATE: 01/27/19 TIME: 17:47 Operative Report Preoperative Diagnosis GI bleed secondary to hemorrhoids Postoperative Diagnosis Same Operation/Procedure Performed Hemorrhoidectomy Surgeon see signature line engineering assistant None Anesthesia: general Estimated blood loss: 50 - 100 ml's Transfusion Required none Specimen Hemorrhoid Grafts/Implants none Complications none JOVITA NOLASCO MD January 27, 2019 17:48
--- NOTE | 2019-01-27 17:53 | OPR ---
Date/Time of Note Date/Time of Note DATE: 01/27/19 TIME: 17:50 Operative Report Preoperative Diagnosis GI bleed secondary to hemorrhoids Postoperative Diagnosis Same Operation/Procedure Performed Open hemorrhoidectomy Surgeon see signature line Public Accountant None Anesthesia Type: general Anesthesiologist: NORMA ARANGO MD Estimated Blood Loss: 10 - 50 ml's Transfusion none Specimen Hemorrhoid Grafts/Implants none Complications none Pt Condition Post Procedure: stable Disposition: PACU Indications The patient is a 53-year-old male with multiple admissions for anemia and GI bleed. He has had extensive work-up. Multiple colonoscopies and endoscopies and bleeding scans. No source has been identified. However, this admission he was noted to have large internal hemorrhoids on colonoscopy. Due to the fact that he has extensive work-up with no other source of bleed, we decided to proc eed with hemorrhoidectomy. All benefits, risks, alternatives discussed in detail. The patient elects to proceed. Patient understands that this may not be the answer to his recurrent bleeds. Procedure Description The patient was brought to operative room placed supine on the table. Preoperative antibiotics and SCDs were applied, the patient was intubated. The patient was then placed in prone jackknife position. The buttocks were taped apart. An exam under anesthesia was performed. The entire anus and rectum was examined. There was an obvious internal hemorrhoidal plexus noted at the 4 o'clock position position. There were no other internal hemorrhoids noted. There was an active pulsatile bleed the hemorrhoidal plexus while performing the exam under anesthesia. The base was injected with half percent Marcaine. The hemorrhoidal tissue was grasped and excised sharply. The wound was then brought together with a running 3-0 chromic suture. 2 sutures were placed. Surgicel was then applied. I waited for approximately 7 minutes and then rechecked the area. It was hemostatic. Gentle Surgicel was applied. The patient on procedure well, was extubated the OR, transferred to the recovery room in stable condition. JOVITA NOLASCO MD January 27, 2019 17:53
[2019-01-27] MEDS ORDERED: ONDANSETRON 4 MG INJ IV PRN ×2 (18:00→18:30)
[2019-01-27] MEDS: KETOROLAC 30 MG INJ IV SCH (18:00)
--- NOTE | 2019-01-27 18:10 | PREAC ---
Date/Time of Note Date/Time of Note DATE: 01/27/19 TIME: 18:07 Anesthesia Eval and Record Evaluation Time Pre-Procedure Interview DATE: 01/27/19 TIME: 18:07 Age 53 Sex male NPO: 8 hrs Preoperative diagnosis Hemmorhoid, Anemia Planned procedure Hemorhoidectomy Past Medical History Past Medical History: Includes GI: GERD, Obesity Heme: Anemia Surgery & Anesthesia Issues No known issue Meds Anticoagulation: No Beta Kerry within 24 hr: No Reason Beta Kerry not given: Pt. not on B-Kerry Active Scripts Pantoprazole* (Protonix*) 40 Mg Tablet.dr, 40 MG PO DAILY for 30 Days, #30 TAB 2 Refills Prov:ALYCE DECKERGabrielle 01/08/19 Reported Medications Ferrous Sulfate* (Ferrous Sulfate*) 325 Mg Tabec, 325 MG PO DAILY, TAB 01/25/19 Current Medications IV Flush (NS 3 ml) 3 ml PER PROTOCOL IV ; Start 01/25/19 at 16:00 Pantoprazole (Protonix Iv) 40 mg BID IV Last administered on 01/27/19at 08:36; Admin Dose 40 MG; Start 01/25/19 at 21:00 Guaifenesin/ Dextromethorphan (Robitussin Dm Liquid Cup) 10 ml Q6H RESP THERAPY PRN PO COUGH Last administered on 01/27/19at 01:08; Admin Dose 10 ML; Start 01/27/19 at 00:40 Morphine Sulfate (morphine) 2 mg Q2H PRN IV PAIN LEVEL 6-10; Start 01/27/19 at 18:00 Acetaminophen/ Hydrocodone Bitart ([place] (5/325)) 1 tab Q6H PRN PO PAIN LEVEL 6-10; Start 01/27/19 at 18:00 Ketorolac Tromethamine (Toradol) 15 mg Q6H IV ; Start 01/27/19 at 18:00; Stop 01/29/19 at 00:01 Acetaminophen (Tylenol Tab) 650 mg Q6H PRN PO MILD PAIN(1-3)OR ELEVATED TEMP; Start 01/27/19 at 18:00 Ibuprofen (Motrin) 600 mg Q6H PRN PO PAIN LEVEL 1-5; Start 01/29/19 at 01:00 Ondansetron HCl (Zofran Inj) 4 mg Q6H PRN IV NAUSEA AND/OR VOMITING; Start 01/27/19 at 18:00 Potassium Chloride/Dextrose/ Sod Cl 1,000 ml @ 100 mls/hr Q10H IV ; Start 01/27/19 at 17:48 Enoxaparin Sodium (Lovenox) 40 mg DAILY@07 SC ; Start 01/28/19 at 07:00 Meds reviewed: Yes Allergies Coded Allergies: No Known Allergy (Unverified , 01/04/19) Allergies Reviewed: Yes Labs/Studies Labs Reviewed: Reviewed by anesthesiologist Result Diagram: 01/27/19 0949 01/27/19 0949 Laboratory Tests 01/27/19 09:49 test: N/A Studies: ECG Pre-procedure Exam Last vitals Vital Signs Date Temp Pulse Resp B/P (MAP) Pulse Ox O2 O2 Flow FiO2 Time Delivery Rate 01/27/19 85 16:06 01/27/19 99.3 16 107/61 97 15:54 (76) 01/27/19 Room Air 11:22 01/25/19 2 10:46 Airway: Adequate mouth opening, Adequate thyromental dist Mallampati: Mallampati II Teeth: Normal Lung: Normal Heart: Normal ASA Physical Status ASA physical status: 3 Emergency: E Planned Anesthetic General/MAC: LMA Planned Pain Management Parenteral pain med Pre-operative Attestations Prior to commencing anesthesia and surgery, the patient was re-evaluated, there was verification of: *The patient's identity *The results of appropriate recent lab work and preoperative vital signs *The above evaluation not changing prior to induction *Anesthetic plan, risk benefits, alternative and complications discussed with patient/family; questions answered; patient/family understands, accepts and wishes to proceed. NORMA ARANGO MD January 27, 2019 18:10
[2019-01-27] MEDS ORDERED: MIDAZOLAM 1 MG/ML 2 ML INJ ONE (18:24)
[2019-01-27] MEDS ORDERED: FENTAnyl 50 MCG/ML VIAL IV PRN (18:30)
[2019-01-27] MEDS ORDERED: MEPERIDINE 25 MG INJ IV PRN (18:30)
[2019-01-27] MEDS ORDERED: DIPHENHYDRAMINE 50 MG INJ IV PRN (18:30)
[2019-01-27] MEDS ORDERED: METOCLOPRAMIDE 10 MG INJ IV PRN (18:30)
[2019-01-27] MEDS ORDERED: HYDROmorphONE 1 MG/5 ML IV SYRINGE IV PRN ×2 (18:30)
[2019-01-27] MEDS ORDERED: BUPIVACAINE 0.25%/EPI (SDV) 30 ML INJ ONE (18:41)
[2019-01-27] MEDS ORDERED: GLYCOPYRROLATE 0.4 MG INJ ONE (19:09)
[2019-01-27] MEDS ORDERED: ROCURONIUM 50 MG INJ ONE (19:09)
[2019-01-27] MEDS ORDERED: CEFAZOLIN 1 GM INJ ONE (19:09)
[2019-01-27] MEDS ORDERED: NEOSTIGMINE 3 MG/3 ML SYRINGE ONE (19:09)
[2019-01-27] MEDS ORDERED: LIDOCAINE 2% (SDV) 5 ML INJ ONE (19:09)
[2019-01-27] MEDS ORDERED: PROPOFOL 20 ML ONE (19:09)
[2019-01-27] MEDS ORDERED: ONDANSETRON 4 MG INJ ONE (19:14)
[2019-01-27] MEDS ORDERED: DOCUSATE SODIUM 100 MG CAP PO PRN (19:30)
--- NOTE | 2019-01-27 19:32 | PAC ---
Date/Time of Note Date/Time of Note DATE: 01/27/19 TIME: 19:31 Post-Anesthesia Notes Post-Anesthesia Note Last documented vital signs Vital Signs Date Temp Pulse Resp B/P (MAP) Pulse Ox O2 O2 Flow FiO2 Time Delivery Rate 01/27/19 85 16:06 01/27/19 99.3 16 107/61 97 15:54 (76) 01/27/19 Room Air 11:22 01/25/19 2 10:46 Activity: WNL Respiratory function: WNL Cardiovascular function: WNL Mental status: Baseline Pain reasonably controlled: Yes Hydration appropriate: Yes Nausea/Vomiting absent: Yes Comments BP:117/67, P:78, Spo2:100%, T:98,8 NORMA ARANGO MD January 27, 2019 19:32
[2019-01-27] MEDS: POLYETHYLENE GLYCOL 17 GM PACKET PO SCH (20:58)
[2019-01-27] MEDS: morphine 2 MG INJ IV PRN (20:58)
[2019-01-27] MEDS: D5-NS + KCL 20 MEQ 1,000 ML IV SCH (21:09)
[2019-01-28] VITALS (12 sets, daily range): BP systolic 78–112; BP diastolic 0–62; PULSE 50–88; RESP 18–22
[2019-01-28] MEDS: KETOROLAC 30 MG INJ IV SCH ×5 (00:22→23:01)
[2019-01-28] MEDS ORDERED: SOD CHLORIDE 0.9% 1,000 ML IV ONE (00:30)
[2019-01-28] MEDS: D5-NS + KCL 20 MEQ 1,000 ML IV SCH ×3 (03:48→23:00)
[2019-01-28] MEDS ORDERED: ENOXAPARIN 40 MG/0.4 ML SYG SC SCH (07:00)
[2019-01-28] MEDS ORDERED: SOD CHLORIDE 0.9% 250 ML IV* ONE (08:24)
[2019-01-28] MEDS: PANTOPRAZOLE 40 MG INJ IV SCH ×2 (08:32→20:41)
[2019-01-28] MEDS: POLYETHYLENE GLYCOL 17 GM PACKET PO SCH ×2 (08:32→20:41)
--- NOTE | 2019-01-28 13:26 | PN ---
Date/Time of Note Date/Time of Note DATE: 01/28/19 TIME: 13:25 Assessment/Plan VTE Prophylaxis Risk score (from Nsg)>0 risk: 4 SCD applied (from [facility]): Yes Pharmacological prophylaxis: other (scds) Lines/Catheters IV Catheter Type (from Nrs): Peripheral IV Urinary Cath still in place: No Assessment/Plan Hospital Course Summary Assessment and Plan: Assessment: Recurrent lower GI bleed Colonoscopy 01/26/2019 Mild diverticulosis of the left colon Small 4 mm questionable AVM descending colon, post APC Moderate to large internal hemorrhoids likely source of hematochezia Normal terminal ileum at least 30 cm Otherwise normal colonoscopy to cecum -S/p Hemorrhoidectomy 01/27/19 Severe iron deficiency anemia Questionable history of colonic AVMs Plan: Diet per surgery Pain management Avoid constipation Monitor labs transfuse for HGB less than 7.5- multiple antibodies, Caution Patient seen in collaboration with Dr. Hernandez Subjective: Course reviewed with nursing staff Patient interviewed and examined All labs, imaging and other results reviewed The patient resting in bed, currently NPO for surgery today No c/o n/v or abd pain. Discussed results of colonoscopy Pt c/o surgical pain to be expected- maintain close observation. PHYSICAL EXAMINATION: GENERAL: Alert & oriented x 3, in no acute distress SKIN: No lesions, no stigmata chronic liver disease, no evidence of bleeding diathesis LYMPHATIC: No palpable lymphadenopathy. HEAD: Normocephalic, atraumatic, no tenderness. EYES: Pupils equal reactive to light and accommodation, full extraocular movements, sclera clear, non-icteric, no discharge. EARS/NOSE AND THROAT: Ears normal, nose normal, oropharynx normal, oral membranes well hydrated without lesions. NECK: Supple, no masses CHEST: Inspection within normal limits. CARDIOVASCULAR: Heart: Regular rate and rhythm RESPIRATORY: Lungs clear to auscultation GASTROINTESTINAL AND LIVER: Abdomen: Soft, non tenderness, non-distended, no hernias, no rebound tenderness, normoactive bowel sounds. Rectal: Deferred. EXTREMITIES: No cyanosis, clubbing or edema. Result Diagram: 01/28/19 0629 01/28/19 0629 Results 24hrs Laboratory Tests Test 01/28/19 06:29 White Blood Count 6.5 # Red Blood Count 2.78 L Hemoglobin 6.9 *L Hematocrit 23.1 L Mean Corpuscular Volume 83.1 Mean Corpuscular Hemoglobin 24.8 L Mean Corpuscular Hemoglobin Concent 29.9 L Red Cell Distribution Width 20.0 H Platelet Count 280 # Mean Platelet Volume 11.4 H Immature Granulocytes % 0.300 Neutrophils % 77.9 H Segmented Neutrophils % (Manual) 84 H Band Neutrophils % (Manual) 1 Lymphocytes % 16.0 Lymphocytes % (Manual) 11 L Monocytes % 4.0 Monocytes % (Manual) 3 Eosinophils % 1.5 Eosinophils % (Manual) 1 Basophils % 0.3 Nucleated Red Blood Cells % 0.0 Immature Granulocytes # 0.020 Neutrophils # 5.0 Neutrophils # (Manual) 5.5 Band Neutrophils # 0.0 Lymphocytes (Manual) 0.7 L Lymphocytes # 1.0 Monocytes # 0.3 Monocytes # (Manual) 0.1 L Eosinophils # 0.1 Basophils # 0.0 Nucleated Red Blood Cells # 0.0 Pathologist Review (Hematology) YES Platelet Estimate NORMAL Giant Platelets 5 H Polychromasia 3+ Poikilocytosis 1+ Anisocytosis 1+ Microcytosis 1+ Ovalocytes 1+ Sodium Level 140 Potassium Level 4.2 Chloride Level 107 Carbon Dioxide Level 26 Anion Gap 7 Blood Urea Nitrogen 15 Creatinine 0.89 Est Glomerular Filtrat Rate mL/min > 60 Glucose Level 126 Calcium Level 7.7 L Phosphorus Level 3.9 Magnesium Level 2.3 Exam/Review of Systems Exam Vitals Vital Signs Date Temp Pulse Resp B/P (MAP) Pulse Ox O2 O2 Flow FiO2 Time Delivery Rate 01/28/19 62 12:01 01/28/19 97.8 22 112/62 96 Nasal 2.0 11:36 (79) Cannula Intake and Output 01/27/19 01/27/19 01/28/19 1515:00 23:00 07:00 IntakeIntake Total 600 ml 300 ml OutputOutput Total 50 ml 600 ml BalanceBalance 550 ml -300 ml Results Results 24hrs Laboratory Tests Test 01/28/19 06:29 White Blood Count 6.5 # Red Blood Count 2.78 L Hemoglobin 6.9 *L Hematocrit 23.1 L Mean Corpuscular Volume 83.1 Mean Corpuscular Hemoglobin 24.8 L Mean Corpuscular Hemoglobin Concent 29.9 L Red Cell Distribution Width 20.0 H Platelet Count 280 # Mean Platelet Volume 11.4 H Immature Granulocytes % 0.300 Neutrophils % 77.9 H Segmented Neutrophils % (Manual) 84 H Band Neutrophils % (Manual) 1 Lymphocytes % 16.0 Lymphocytes % (Manual) 11 L Monocytes % 4.0 Monocytes % (Manual) 3 Eosinophils % 1.5 Eosinophils % (Manual) 1 Basophils % 0.3 Nucleated Red Blood Cells % 0.0 Immature Granulocytes # 0.020 Neutrophils # 5.0 Neutrophils # (Manual) 5.5 Band Neutrophils # 0.0 Lymphocytes (Manual) 0.7 L Lymphocytes # 1.0 Monocytes # 0.3 Monocytes # (Manual) 0.1 L Eosinophils # 0.1 Basophils # 0.0 Nucleated Red Blood Cells # 0.0 Pathologist Review (Hematology) YES Platelet Estimate NORMAL Giant Platelets 5 H Polychromasia 3+ Poikilocytosis 1+ Anisocytosis 1+ Microcytosis 1+ Ovalocytes 1+ Sodium Level 140 Potassium Level 4.2 Chloride Level 107 Carbon Dioxide Level 26 Anion Gap 7 Blood Urea Nitrogen 15 Creatinine 0.89 Est Glomerular Filtrat Rate mL/min > 60 Glucose Level 126 Calcium Level 7.7 L Phosphorus Level 3.9 Magnesium Level 2.3 Medications Medication Current Medications IV Flush (NS 3 ml) 3 ml PER PROTOCOL IV ; Start 01/25/19 at 16:00 Pantoprazole (Protonix Iv) 40 mg BID IV Last administered on 01/28/19at 08:32; Admin Dose 40 MG; Start 01/25/19 at 21:00 Guaifenesin/ Dextromethorphan (Robitussin Dm Liquid Cup) 10 ml Q6H RESP THERAPY PRN PO COUGH Last administered on 01/27/19at 01:08; Admin Dose 10 ML; Start 01/27/19 at 00:40 Morphine Sulfate (morphine) 2 mg Q2H PRN IV PAIN LEVEL 6-10 Last administered on 01/27/19at 20:58; Admin Dose 2 MG; Start 01/27/19 at 18:00 Acetaminophen/ Hydrocodone Bitart ([place] (5/325)) 1 tab Q6H PRN PO PAIN LEVEL 6-10; Start 01/27/19 at 18:00 Ketorolac Tromethamine (Toradol) 15 mg Q6H IV Last administered on 01/28/19at 12:48; Admin Dose 15 MG; Start 01/27/19 at 18:00; Stop 01/29/19 at 00:01 Acetaminophen (Tylenol Tab) 650 mg Q6H PRN PO MILD PAIN(1-3)OR ELEVATED TEMP; Start 01/27/19 at 18:00 Ibuprofen (Motrin) 600 mg Q6H PRN PO PAIN LEVEL 1-5; Start 01/29/19 at 01:00 Ondansetron HCl (Zofran Inj) 4 mg Q6H PRN IV NAUSEA AND/OR VOMITING; Start 01/27/19 at 18:00 Potassium Chloride/Dextrose/ Sod Cl 1,000 ml @ 100 mls/hr Q10H IV Last admi nistered on 01/27/19at 21:09; Admin Dose 100 MLS/HR; Start 01/27/19 at 17:48 Enoxaparin Sodium (Lovenox) 40 mg DAILY@07 SC Last administered on 01/28/19at 06:33; Admin Dose 40 MG; Start 01/28/19 at 07:00 Polyethylene Glycol (Miralax) 17 gm BID PO Last administered on 01/28/19at 08:32; Admin Dose 17 GM; Start 01/27/19 at 21:00 Docusate Sodium (Colace) 100 mg TID PRN PO CONSTIPATION; Start 01/27/19 at 19:30 JEET VALDOVINOS January 28, 2019 13:26
[2019-01-28] MEDS: morphine 2 MG INJ IV PRN ×3 (13:42→22:01)
--- NOTE | 2019-01-28 16:49 | PN ---
Date/Time of Note Date/Time of Note DATE: 01/28/19 TIME: 16:46 Assessment/Plan Lines/Catheters IV Catheter Type (from Nrsg): Peripheral IV Bah in Place (from Nrsg): No Assessment/Plan Assessment/Plan Postop day 1 status post thyroidectomy Drop in hematocrit today despite no bleeding overnight. Likely dilutional Patient to receive 2 units. Recheck H&H afterwards Will DC Lovenox Subjective 24 Hr Interval Summary Constitutional: other (Complaining of pain. Not relieved by Toradol. Did have a bowel movement today. Some red blood with wiping. However no blood in bowel) Feeding: advancing diet Pain Control: moderate Exam/Review of Systems Vital Signs Vitals Vital Signs Date Temp Pulse Resp B/P (MAP) Pulse Ox O2 O2 Flow FiO2 Time Delivery Rate 01/28/19 64 16:09 01/28/19 98.0 22 96/59 (71) 96 Nasal 2.0 15:09 Cannula Intake and Output 01/27/19 01/27/19 01/28/19 1515:00 23:00 07:00 IntakeIntake Total 600 ml 300 ml OutputOutput Total 50 ml 600 ml BalanceBalance 550 ml -300 ml Exam Constitutional: alert, oriented, well developed Gastrointestinal: soft, non-tender Additional Comments Anal rectal exam - deferred Results Result Diagram: 01/28/19 0629 01/28/19 0629 JOVITA NOLASCO MD January 28, 2019 16:49
--- NOTE | 2019-01-28 16:53 | PN ---
Date/Time of Note Date/Time of Note DATE: 01/28/19 TIME: 16:45 Assessment/Plan VTE Prophylaxis Risk score (from Ns)>0 risk: 6 SCD applied (from Ns): Yes Pharmacological prophylaxis: NA/contraindicated Pharm contraindication: bleeding Lines/Catheters IV Catheter Type (from Nrsg): Peripheral IV Urinary Cath still in place: No Assessment/Plan Assessment/Plan 53 yo man history of GI bleed and iron-def anemia presents with severe anemia #Iron deficiency anemia - Likely the cause of headache, palpitations, weakness. - Transfuse to Hgb>7 or per symptoms. 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 - Also IV ferrlicit if needed. #Lower GI bleed - Etiology is likely internal hemorrhoids seen on colonoscopy 01/[address] Hernandez - To OR for hemorrhoidectomy 01/[address] Medina. - Postoperative pain control with toradol - Monitor H/H DVT: SCDs GI: PPI Result Diagram: 01/28/19 0601/28/19628 Subjective 24 Hr Interval Summary Free Text/Dictation Went for internal hemorrhoid resection last night. No bowel movements yet since surgery. Hgb drop again this morning, will transfuse. Moderate postoperative pain, adequately controlled. Exam/Review of Systems Exam Vitals Vital Signs Date Temp Pulse Resp B/P (MAP) Pulse Ox O2 O2 Flow FiO2 Time Delivery Rate 01/28/19 64 16:09 01/28/19 98.0 22 96/59 (71) 96 Nasal 2.0 15:09 Cannula Intake and Output 01/27/19 01/27/19 01/28/19 1515:00 23:00 07:00 IntakeIntake Total 600 ml 300 ml OutputOutput Total 50 ml 600 ml BalanceBalance 550 ml -300 ml Exam Gen: Fatigued appearing man in no acute distress. Eyes: PERRL, no icterus, HEENT: Moist mucous membranes, clear oropharynx Neck: No lymphadenopathy or tenderness. Card: Regular rate and rhythm Pulm: Clear to auscultation bilaterally, no crackles Abd: Soft, nontender, nondistended. No hepatosplenomegaly. Ext: No cyanosis/clubbing/edema Results Results 24hrs Laboratory Tests Test 01/28/19 06:29 White Blood Count 6.5 # Red Blood Count 2.78 L Hemoglobin 6.9 *L Hematocrit 23.1 L Mean Corpuscular Volume 83.1 Mean Corpuscular Hemoglobin 24.8 L Mean Corpuscular Hemoglobin Concent 29.9 L Red Cell Distribution Width 20.0 H Platelet Count 280 # Mean Platelet Volume 11.4 H Immature Granulocytes % 0.300 Neutrophils % 77.9 H Segmented Neutrophils % (Manual) 84 H Band Neutrophils % (Manual) 1 Lymphocytes % 16.0 Lymphocytes % (Manual) 11 L Monocytes % 4.0 Monocytes % (Manual) 3 Eosinophils % 1.5 Eosinophils % (Manual) 1 Basophils % 0.3 Nucleated Red Blood Cells % 0.0 Immature Granulocytes # 0.020 Neutrophils # 5.0 Neutrophils # (Manual) 5.5 Band Neutrophils # 0.0 Lymphocytes (Manual) 0.7 L Lymphocytes # 1.0 Monocytes # 0.3 Monocytes # (Manual) 0.1 L Eosinophils # 0.1 Basophils # 0.0 Nucleated Red Blood Cells # 0.0 Pathologist Review (Hematology) YES Platelet Estimate NORMAL Giant Platelets 5 H Polychromasia 3+ Poikilocytosis 1+ Anisocytosis 1+ Microcytosis 1+ Ovalocytes 1+ Sodium Level 140 Potassium Level 4.2 Chloride Level 107 Carbon Dioxide Level 26 Anion Gap 7 Blood Urea Nitrogen 15 Creatinine 0.89 Est Glomerular Filtrat Rate mL/min > 60 Glucose Level 126 Calcium Level 7.7 L Phosphorus Level 3.9 Magnesium Level 2.3 Medications Medication Current Medications IV Flush (NS 3 ml) 3 ml PER PROTOCOL IV ; Start 01/25/19 at 16:00 Pantoprazole (Protonix Iv) 40 mg BID IV Last administered on 01/28/19at 08:32; Admin Dose 40 MG; Start 01/25/19 at 21:00 Guaifenesin/ Dextromethorphan (Robitussin Dm Liquid Cup) 10 ml Q6H RESP THERAPY PRN PO COUGH Last administered on 01/27/19at 01:08; Admin Dose 10 ML; Start 01/27/19 at 00:40 Morphine Sulfate (morphine) 2 mg Q2H PRN IV PAIN LEVEL 6-10 Last administered on 01/28/19at 13:42; Admin Dose 2 MG; Start 01/27/19 at 18:00 Acetaminophen/ Hydrocodone Bitart ([place] (5/325)) 1 tab Q6H PRN PO PAIN LEVEL 6-10; Start 01/27/19 at 18:00 Ketorolac Tromethamine (Toradol) 15 mg Q6H IV Last administered on 01/28/19at 12:48; Admin Dose 15 MG; Start 01/27/19 at 18:00; Stop 01/29/19 at 00:01 Acetaminophen (Tylenol Tab) 650 mg Q6H PRN PO MILD PAIN(1-3)OR ELEVATED TEMP; Start 01/27/19 at 18:00 Ibuprofen (Motrin) 600 mg Q6H PRN PO PAIN LEVEL 1-5; Start 01/29/19 at 01:00 Ondansetron HCl (Zofran Inj) 4 mg Q6H PRN IV NAUSEA AND/OR VOMITING; Start 01/27/19 at 18:00 Potassium Chloride/Dextrose/ Sod Cl 1,000 ml @ 100 mls/hr Q10H IV Last administered on 01/28/19at 13:26; Admin Dose 100 MLS/HR; Start 01/27/19 at 17:48 Enoxaparin Sodium (Lovenox) 40 mg DAILY@07 SC Last administered on 01/28/19at 06:33; Admin Dose 40 MG; Start 01/28/19 at 07:00 Polyethylene Glycol (Miralax) 17 gm BID PO Last administered on 01/28/19at 08:32; Admin Dose 17 GM; Start 01/27/19 at 21:00 Docusate Sodium (Colace) 100 mg TID PRN PO CONSTIPATION; Start 01/27/19 at 19:30 MADDIE HOYOS MD January 28, 2019 16:53
[2019-01-28] MEDS: HYDROCODONE/APAP (5/325) TAB PO PRN (19:59)
[2019-01-29] VITALS (12 sets, daily range): BP systolic 91–122; BP diastolic 50–71; PULSE 60–83; RESP 16–22
[2019-01-29] MEDS: morphine 2 MG INJ IV PRN ×8 (00:13→23:31)
[2019-01-29] MEDS ORDERED: IBUPROFEN 600 MG TAB PO PRN (01:00)
[2019-01-29] MEDS: D5-NS + KCL 20 MEQ 1,000 ML IV SCH (02:11)
[2019-01-29] MEDS: HYDROCODONE/APAP (5/325) TAB PO PRN ×4 (02:17→23:33)
[2019-01-29] MEDS ORDERED: SOD CHLORIDE 0.9% 500 ML IV ONE (04:30)
[2019-01-29] MEDS: PANTOPRAZOLE 40 MG INJ IV SCH (08:56)
[2019-01-29] MEDS: POLYETHYLENE GLYCOL 17 GM PACKET PO SCH ×2 (08:56→20:19)
--- NOTE | 2019-01-29 11:18 | PN ---
Date/Time of Note Date/Time of Note DATE: 01/29/19 TIME: 11:16 Assessment/Plan VTE Prophylaxis Risk score (from Ns)>0 risk: 6 SCD applied (from Ns): Yes Pharmacological prophylaxis: NA/contraindicated Pharm contraindication: bleeding Lines/Catheters IV Catheter Type (from Nrsg): Portacath Urinary Cath still in place: No Assessment/Plan Assessment/Plan 53 yo man history of GI bleed and iron-def anemia presents with severe anemia #Iron deficiency anemia - Likely the cause of headache, palpitations, weakness. - Transfuse to Hgb>7 or per symptoms. 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 - Will check iron panel and ferritin, IV ferrlicit if needed. #Lower GI bleed - Etiology is likely internal hemorrhoids seen on colonoscopy 01/[address] Hernandez - To OR for hemorrhoidectomy 01/[address] Medina. - Postoperative pain control with ibuprofen, morphine. - Monitor H/H DVT: SCDs GI: PPI Dispo: Telemetry for hypotension related to blood loss; also IV pain control. Result Diagram: 01/29/19 0546 01/29/19 0546 Subjective 24 Hr Interval Summary Free Text/Dictation Still in severe pain after hemorrhoidectomy requiring IV morphine. He had another bloody bowel movement this morning but he reports it's less grossly bloody than before. No transfusion required today. Exam/Review of Systems Exam Vitals Vital Signs Date Temp Pulse Resp B/P (MAP) Pulse Ox O2 O2 Flow FiO2 Time Delivery Rate 01/29/19 70 08:04 01/29/19 97.8 22 107/63 96 Room Air 07:19 (78) 01/28/19 2.0 15:09 Intake and Output 01/28/19 01/28/19 01/29/19 1515:00 23:00 07:00 IntakeIntake Total 800 ml 2500 ml BalanceBalance 800 ml 2500 ml Exam Gen: Fatigued appearing man in no acute distress. Eyes: PERRL, no icterus, HEENT: Moist mucous membranes, clear oropharynx Neck: No lymphadenopathy or tenderness. Card: Regular rate and rhythm Pulm: Clear to auscultation bilaterally, no crackles Abd: Soft, nontender, nondistended. No hepatosplenomegaly. Ext: No cyanosis/clubbing/edema Results Results 24hrs Laboratory Tests Test 01/28/19 23:09 01/29/19 05:46 White Blood Count 9.5 # 9.3 Red Blood Count 3.62 #L 3.57 L Hemoglobin 9.4 #L 9.0 L Hematocrit 30.6 #L 30.2 L Mean Corpuscular Volume 84.5 84.6 Mean Corpuscular Hemoglobin 26.0 L 25.2 L Mean Corpuscular Hemoglobin Concent 30.7 L 29.8 L Red Cell Distribution Width 18.9 H 19.5 H Platelet Count 298 314 Mean Platelet Volume 10.9 H 11.2 H Immature Granulocytes % 0.300 0.400 Neutrophils % 84.9 H 80.7 H Lymphocytes % 7.1 L 10.2 L Monocytes % 5.5 5.9 Eosinophils % 1.9 2.5 Basophils % 0.3 0.3 Nucleated Red Blood Cells % 0.0 0.0 Immature Granulocytes # 0.030 0.040 H Neutrophils # 8.0 H 7.5 Lymphocytes # 0.7 L 1.0 Monocytes # 0.5 0.6 Eosinophils # 0.2 0.2 Basophils # 0.0 0.0 Nucleated Red Blood Cells # 0.0 0.0 Sodium Level 142 Potassium Level 4.3 Chloride Level 111 H Carbon Dioxide Level 25 Anion Gap 6 Blood Urea Nitrogen 12 Creatinine 0.94 Est Glomerular Filtrat Rate mL/min > 60 Glucose Level 104 Calcium Level 8.0 L Medications Medication Current Medications IV Flush (NS 3 ml) 3 ml PER PROTOCOL IV ; Start 01/25/19 at 16:00 Pantoprazole (Protonix Iv) 40 mg BID IV Last administered on 01/29/19at 08:56; Admin Dose 40 MG; Start 01/25/19 at 21:00 Guaifenesin/ Dextromethorphan (Robitussin Dm Liquid Cup) 10 ml Q6H RESP THERAPY PRN PO COUGH Last administered on 01/27/19at 01:08; Admin Dose 10 ML; Start 01/27/19 at 00:40 Morphine Sulfate (morphine) 2 mg Q2H PRN IV PAIN LEVEL 6-10 Last administered on 01/29/19at 08:56; Admin Dose 2 MG; Start 01/27/19 at 18:00 Acetaminophen/ Hydrocodone Bitart ([place] (5/325)) 1 tab Q6H PRN PO PAIN LEVEL 6-10 Last administered on 01/29/19at 11:01; Admin Dose 1 TAB; Start 01/27/19 at 18:00 Acetaminophen (Tylenol Tab) 650 mg Q6H PRN PO MILD PAIN(1-3)OR ELEVATED TEMP; Start 01/27/19 at 18:00 Ibuprofen (Motrin) 600 mg Q6H PRN PO PAIN LEVEL 1-5; Start 01/29/19 at 01:00 Ondansetron HCl (Zofran Inj) 4 mg Q6H PRN IV NAUSEA AND/OR VOMITING; Start 01/27/19 at 18:00 Potassium Chloride/Dextrose/ Sod Cl 1,000 ml @ 100 mls/hr Q10H IV Last administered on 01/29/19at 02:11; Admin Dose 100 MLS/HR; Start 01/27/19 at 17:48 Polyethylene Glycol (Miralax) 17 gm BID PO Last administered on 01/29/19at 08: 56; Admin Dose 17 GM; Start 01/27/19 at 21:00 Docusate Sodium (Colace) 100 mg TID PRN PO CONSTIPATION; Start 01/27/19 at 19:30 MADDIE HOYOS MD January 29, 2019 11:18
--- NOTE | 2019-01-29 12:34 | PN ---
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 Hernandez Subjective: Course reviewed with nursing staff Patient interviewed and examined All labs, imaging and other results reviewed The patient is complaining of rectal pain status post hemorrhoidectomy. He is tolerating regular diet well. Hemoglobin is slightly lower today 9.0. Patient reports minimal rectal bleeding with bowel movements. Patient denies diarrhea or constipation. Been followed by colorectal surgeon. With no further recommendations GI will sign off and will be available for consultation upon request. PHYSICAL EXAMINATION: GENERAL: Alert & oriented x 3, in no acute distress SKIN: No lesions, no stigmata chronic liver disease, no evidence of bleeding diathesis LYMPHATIC: No palpable lymphadenopathy. HEAD: Normocephalic, atraumatic, no tenderness. EYES: Pupils equal reactive to light and accommodation, full extraocular movements, sclera clear, non-icteric, no discharge. EARS/NOSE AND THROAT: Ears normal, nose normal, oropharynx normal, oral membranes well hydrated without lesions. NECK: Supple, no masses CHEST: Inspection within normal limits. CARDIOVASCULAR: Heart: Regular rate and rhythm RESPIRATORY: Lungs clear to auscultation GASTROINTESTINAL AND LIVER: Abdomen: Soft, non tenderness, non-distended, no hernias, no rebound tenderness, normoactive bowel sounds. Rectal: Deferred. EXTREMITIES: No cyanosis, clubbing or edema. Result Diagram: 01/29/19 0546 01/29/19 0546 Results 24hrs Laboratory Tests Test 5/16/19 23:09 01/29/19 05:46 White Blood Count 9.5 # 9.3 Red Blood Count 3.62 #L 3.57 L Hemoglobin 9.4 #L 9.0 L Hematocrit 30.6 #L 30.2 L Mean Corpuscular Volume 84.5 84.6 Mean Corpuscular Hemoglobin 26.0 L 25.2 L Mean Corpuscular Hemoglobin Concent 30.7 L 29.8 L Red Cell Distribution Width 18.9 H 19.5 H Platelet Count 298 314 Mean Platelet Volume 10.9 H 11.2 H Immature Granulocytes % 0.300 0.400 Neutrophils % 84.9 H 80.7 H Lymphocytes % 7.1 L 10.2 L Monocytes % 5.5 5.9 Eosinophils % 1.9 2.5 Basophils % 0.3 0.3 Nucleated Red Blood Cells % 0.0 0.0 Immature Granulocytes # 0.030 0.040 H Neutrophils # 8.0 H 7.5 Lymphocytes # 0.7 L 1.0 Monocytes # 0.5 0.6 Eosinophils # 0.2 0.2 Basophils # 0.0 0.0 Nucleated Red Blood Cells # 0.0 0.0 Sodium Level 142 Potassium Level 4.3 Chloride Level 111 H Carbon Dioxide Level 25 Anion Gap 6 Blood Urea Nitrogen 12 Creatinine 0.94 Est Glomerular Filtrat Rate mL/min > 60 Glucose Level 104 Calcium Level 8.0 L CC: YOAV HERNANDEZ MD ; Exam/Review of Systems Exam Vitals Vital Signs Date Temp Pulse Resp B/P (MAP) Pulse Ox O2 O2 Flow FiO2 Time Delivery Rate 01/29/19 71 12:01 01/29/19 98.0 22 112/67 96 Room Air 11:36 (82) 01/28/19 2.0 15:09 Intake and Output 01/28/19 01/28/19 01/29/19 1515:00 23:00 07:00 IntakeIntake Total 800 ml 2500 ml BalanceBalance 800 ml 2500 ml Results Results 24hrs Laboratory Tests Test 01/28/19 23:09 01/29/19 05:46 White Blood Count 9.5 # 9.3 Red Blood Count 3.62 #L 3.57 L Hemoglobin 9.4 #L 9.0 L Hematocrit 30.6 #L 30.2 L Mean Corpuscular Volume 84.5 84.6 Mean Corpuscular Hemoglobin 26.0 L 25.2 L Mean Corpuscular Hemoglobin Concent 30.7 L 29.8 L Red Cell Distribution Width 18.9 H 19.5 H Platelet Count 298 314 Mean Platelet Volume 10.9 H 11.2 H Immature Granulocytes % 0.300 0.400 Neutrophils % 84.9 H 80.7 H Lymphocytes % 7.1 L 10.2 L Monocytes % 5.5 5.9 Eosinophils % 1.9 2.5 Basophils % 0.3 0.3 Nucleated Red Blood Cells % 0.0 0.0 Immature Granulocytes # 0.030 0.040 H Neutrophils # 8.0 H 7.5 Lymphocytes # 0.7 L 1.0 Monocytes # 0.5 0.6 Eosinophils # 0.2 0.2 Basophils # 0.0 0.0 Nucleated Red Blood Cells # 0.0 0.0 Sodium Level 142 Potassium Level 4.3 Chloride Level 111 H Carbon Dioxide Level 25 Anion Gap 6 Blood Urea Nitrogen 12 Creatinine 0.94 Est Glomerular Filtrat Rate mL/min > 60 Glucose Level 104 Calcium Level 8.0 L Medications Medication Current Medications IV Flush (NS 3 ml) 3 ml PER PROTOCOL IV ; Start 01/25/19 at 16:00 Pantoprazole (Protonix Iv) 40 mg BID IV Last administered on 01/29/19 08:56; Admin Dose 40 MG; Start 01/25/19 at 21:00 Guaifenesin/ Dextromethorphan (Robitussin Dm Liquid Cup) 10 ml Q6H RESP THERAPY PRN PO COUGH Last administered on 01/27/19 01:08; Admin Dose 10 ML; Start 01/27/19 at 00:40 Morphine Sulfate (morphine) 2 mg Q2H PRN IV PAIN LEVEL 6-10 Last administered on 01/29/19at 08:56; Admin Dose 2 MG; Start 01/27/19 at 18:00 Acetaminophen/ Hydrocodone Bitart ([place] (5/325)) 1 tab Q6H PRN PO PAIN LEVEL 6-10 Last administered on 01/29/19 11:01; Admin Dose 1 TAB; Start 01/27/19 at 18:00 Acetaminophen (Tylenol Tab) 650 mg Q6H PRN PO MILD PAIN(1-3)OR ELEVATED TEMP; Start 01/27/19 at 18:00 Ibuprofen (Motrin) 600 mg Q6H PRN PO PAIN LEVEL 1-5; Start 01/29/19 at 01:00 Ondansetron HCl (Zofran Inj) 4 mg Q6H PRN IV NAUSEA AND/OR VOMITING; Start 01/27/19 at 18:00 Potassium Chloride/Dextrose/ Sod Cl 1,000 ml @ 100 mls/hr Q10H IV Last administered on 01/29/19at 02:11; Admin Dose 100 MLS/HR; Start 01/27/19 at 17:48 Polyethylene Glycol (Miralax) 17 gm BID PO Last administered on 01/29/19at 08:56; Admin Dose 17 GM; Start 01/27/19 at 21:00 Docusate Sodium (Colace) 100 mg TID PRN PO CONSTIPATION; Start 01/27/19 at 19:30 SHIRAZ ALEMAN NP January 29, 2019 12:34
[2019-01-29] MEDS: PANTOPRAZOLE (EC) 40 MG TAB PO SCH (17:32)
[2019-01-30] VITALS (10 sets, daily range): BP systolic 111–137; BP diastolic 58–70; PULSE 47–79; RESP 18–20
[2019-01-30] MEDS: morphine 2 MG INJ IV PRN ×10 (01:41→23:16)
[2019-01-30] MEDS: PANTOPRAZOLE (EC) 40 MG TAB PO SCH ×2 (05:27→17:14)
[2019-01-30] MEDS: HYDROCODONE/APAP (5/325) TAB PO PRN ×2 (06:05→12:27)
[2019-01-30] MEDS: POLYETHYLENE GLYCOL 17 GM PACKET PO SCH ×2 (09:20→20:46)
[2019-01-30] MEDS ORDERED: POTASSIUM CHLORIDE (SR) 20 MEQ TAB PO STA (10:56)
--- NOTE | 2019-01-30 14:40 | PN ---
Date/Time of Note Date/Time of Note DATE: 01/30/19 TIME: 14:38 Assessment/Plan VTE Prophylaxis Risk score (from Ns)>0 risk: 6 SCD applied (from Ns): Yes Pharmacological prophylaxis: NA/contraindicated Pharm contraindication: surgical contra Lines/Catheters IV [facility] Portacath Urinary Cath still in place: No Assessment/Plan Hospital Course 53 yo man history of GI bleed and iron-def anemia presents with severe anemia #Iron deficiency anemia - Likely the cause of headache, palpitations, weakness. 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 -Iron panel is consistent with iron deficiency, start Ferrlecit IV -Monitor hemoglobin #Lower GI bleed - Etiology is likely internal hemorrhoids seen on colonoscopy 01/[address] Hernandez - OR for hemorrhoidectomy 01/[address] Medina - Postoperative pain control with ibuprofen, morphine. - Monitor H/H DVT: SCDs GI: PPI Dispo: Anticipate DC home in 1 to 2 days Result Diagram: 01/30/19 0730 01/30/19 0730 Results 24hrs Laboratory Tests Test 01/30/19 07:30 White Blood Count 6.8 # Red Blood Count 3.16 L Hemoglobin 8.0 L Hematocrit 27.0 L Mean Corpuscular Volume 85.4 Mean Corpuscular Hemoglobin 25.3 L Mean Corpuscular Hemoglobin Concent 29.6 L Red Cell Distribution Width 19.6 H Platelet Count 272 Mean Platelet Volume 10.9 H Immature Granulocytes % 0.400 Neutrophils % 79.1 H Lymphocytes % 12.0 L Monocytes % 5.0 Eosinophils % 2.9 Basophils % 0.6 Nucleated Red Blood Cells % 0.0 Immature Granulocytes # 0.030 Neutrophils # 5.4 Lymphocytes # 0.8 Monocytes # 0.3 Eosinophils # 0.2 Basophils # 0.0 Nucleated Red Blood Cells # 0.0 Sodium Level 140 Potassium Level 3.3 L Chloride Level 113 H Carbon Dioxide Level 23 Anion Gap 4 L Blood Urea Nitrogen 9 Creatinine 0.81 Est Glomerular Filtrat Rate mL/min > 60 Glucose Level 73 Calcium Level 7.6 L Phosphorus Level 3.2 Magnesium Level 2.0 Iron Level 11 L Total Iron Binding Capacity 269 Percent Iron Saturation 4 L Ferritin 22.1 Subjective 24 Hr Interval Summary Constitutional: no complaints Gastrointestinal: other (Rectal pain) Exam/Review of Systems Exam Vitals Vital Signs Date Temp Pulse Resp B/P (MAP) Pulse Ox O2 O2 Flow FiO2 Time Delivery Rate 01/30/19 67 12:00 01/30/19 97.6 19 137/70 98 Room Air 11:55 (92) 01/28/19 2.0 15:09 Intake and Output 01/29/19 01/29/19 01/30/19 1515:00 23:00 07:00 IntakeIntake Total 600 ml 980 ml 800 ml BalanceBalance 600 ml 980 ml 800 ml Constitutional: alert, oriented Respiratory: clear to auscultation Cardiovascular: regular rate and rhythm Gastrointestinal: soft; No distended Musculoskeletal: nl extremities to inspection Results Results 24hrs Laboratory Tests Test 01/30/19 07:30 White Blood Count 6.8 # Red Blood Count 3.16 L Hemoglobin 8.0 L Hematocrit 27.0 L Mean Corpuscular Volume 85.4 Mean Corpuscular Hemoglobin 25.3 L Mean Corpuscular Hemoglobin Concent 29.6 L Red Cell Distribution Width 19.6 H Platelet Count 272 Mean Platelet Volume 10.9 H Immature Granulocytes % 0.400 Neutrophils % 79.1 H Lymphocytes % 12.0 L Monocytes % 5.0 Eosinophils % 2.9 Basophils % 0.6 Nucleated Red Blood Cells % 0.0 Immature Granulocytes # 0.030 Neutrophils # 5.4 Lymphocytes # 0.8 Monocytes # 0.3 Eosinophils # 0.2 Basophils # 0.0 Nucleated Red Blood Cells # 0.0 Sodium Level 140 Potassium Level 3.3 L Chloride Level 113 H Carbon Dioxide Level 23 Anion Gap 4 L Blood Urea Nitrogen 9 Creatinine 0.81 Est Glomerular Filtrat Rate mL/min > 60 Glucose Level 73 Calcium Level 7.6 L Phosphorus Level 3.2 Magnesium Level 2.0 Iron Level 11 L Total Iron Binding Capacity 269 Percent Iron Saturation 4 L Ferritin 22.1 Medications Medication Current Medications IV Flush (NS 3 ml) 3 ml PER PROTOCOL IV ; Start 01/25/19 at 16:00 Guaifenesin/ Dextromethorphan (Robitussin Dm Liquid Cup) 10 ml Q6H RESP THERAPY PRN PO COUGH Last administered on 01/27/19at 01:08; Admin Dose 10 ML; Start 01/27/19 at 00:40 Morphine Sulfate (morphine) 2 mg Q2H PRN IV PAIN LEVEL 6-10 Last administered on 01/30/19at 13:49; Admin Dose 2 MG; Start 01/27/19 at 18:00 Acetaminophen/ Hydrocodone Bitart ([place] (5/325)) 1 tab Q6H PRN PO PAIN LEVEL 6-10 Last administered on 01/30/19at 12:27; Admin Dose 1 TAB; Start 01/27/19 at 18:00 Acetaminophen (Tylenol Tab) 650 mg Q6H PRN PO MILD PAIN(1-3)OR ELEVATED TEMP; Start 01/27/19 at 18:00 Ibuprofen (Motrin) 600 mg Q6H PRN PO PAIN LEVEL 1-5; Start 01/29/19 at 01:00 Ondansetron HCl (Zofran Inj) 4 mg Q6H PRN IV NAUSEA AND/OR VOMITING; Start 01/27/19 at 18:00 Polyethylene Glycol (Miralax) 17 gm BID PO Last administered on 01/30/19 09:20; Admin Dose 17 GM; Start 01/27/19 at 21:00 Docusate Sodium (Colace) 100 mg TID PRN PO CONSTIPATION; Start 01/27/19 at 19:30 Pantoprazole (Protonix Tab) 40 mg BID@0600,1800 PO Last administered on 01/30/19 05:27; Admin Dose 40 MG; Start 01/29/19 at 18:00 JOSE R MARIE January 30, 2019 14:40
[2019-01-30] MEDS: SOD FERRIC GLUC COMPLX 125 MG in SOD CHLORIDE 0.9% 100 ML IVPB SCH (16:23)
[2019-01-31] VITALS (14 sets, daily range): BP systolic 112–158; BP diastolic 57–71; PULSE 55–111; RESP 18–20
[2019-01-31] MEDS: HYDROCODONE/APAP (5/325) TAB PO PRN ×3 (00:35→17:45)
[2019-01-31] MEDS: morphine 2 MG INJ IV PRN ×5 (02:55→21:07)
[2019-01-31] MEDS: PANTOPRAZOLE (EC) 40 MG TAB PO SCH ×2 (06:14→17:45)
[2019-01-31] MEDS: POLYETHYLENE GLYCOL 17 GM PACKET PO SCH ×2 (08:05→21:07)
[2019-01-31] MEDS: SOD FERRIC GLUC COMPLX 125 MG in SOD CHLORIDE 0.9% 100 ML IVPB SCH (12:09)
--- NOTE | 2019-01-31 12:17 | PN ---
Date/Time of Note Date/Time of Note DATE: 01/31/19 TIME: 12:16 Assessment/Plan VTE Prophylaxis Risk score (from Ns)>0 risk: 3 SCD applied (from Ns): Yes Pharmacological prophylaxis: NA/contraindicated Pharm contraindication: bleeding Lines/Catheters IV Catheter Type (from Nrsg): portacath Urinary Cath still in place: No Assessment/Plan Hospital Course 53 yo man history of GI bleed and iron-def anemia presents with severe anemia #Iron deficiency anemia - Likely the cause of headache, palpitations, weakness. 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 -Iron panel is consistent with iron deficiency, continue Ferrlecit IV -Monitor hemoglobin #Lower GI bleed - Etiology is likely internal hemorrhoids seen on colonoscopy 01/[address] Hernandez - OR for hemorrhoidectomy 01/[address] Medina - Postoperative pain control with ibuprofen, morphine. - Monitor H/H DVT: SCDs GI: PPI Dispo: Anticipate DC home in 1 to 2 days, patient still with significant rectal pain Result Diagram: 01/31/1914 01/31/1914 Results 24hrs Laboratory Tests Test 01/31/19 06:14 White Blood Count 6.5 Red Blood Count 3.69 L Hemoglobin 9.4 L Hematocrit 31.0 L Mean Corpuscular Volume 84.0 Mean Corpuscular Hemoglobin 25.5 L Mean Corpuscular Hemoglobin Concent 30.3 L Red Cell Distribution Width 19.5 H Platelet Count 316 Mean Platelet Volume 10.5 H Immature Granulocytes % 0.500 H Neutrophils % 78.9 H Lymphocytes % 11.8 L Monocytes % 4.9 Eosinophils % 3.4 Basophils % 0.5 Nucleated Red Blood Cells % 0.0 Immature Granulocytes # 0.030 Neutrophils # 5.2 Lymphocytes # 0.8 Monocytes # 0.3 Eosinophils # 0.2 Basophils # 0.0 Nucleated Red Blood Cells # 0.0 Sodium Level 143 Potassium Level 3.8 Chloride Level 108 Carbon Dioxide Level 28 Anion Gap 7 Blood Urea Nitrogen 9 Creatinine 0.83 Est Glomerular Filtrat Rate mL/min > 60 Glucose Level 87 Calcium Level 8.2 L Subjective 24 Hr Interval Summary Gastrointestinal: other (Rectal pain) Exam/Review of Systems Exam Vitals Vital Signs Date Temp Pulse Resp B/P (MAP) Pulse Ox O2 O2 Flow FiO2 Time Delivery Rate 01/31/19 64 12:00 01/31/19 98.0 18 127/70 98 11:40 (89) 01/30/19 Room Air 15:33 01/28/19 2.0 15:09 Intake and Output 01/30/19 01/30/19 01/31/19 1515:00 23:00 07:00 IntakeIntake Total 1600 ml 1200 ml BalanceBalance 1600 ml 1200 ml Constitutional: alert, oriented Respiratory: clear to auscultation Cardiovascular: regular rate and rhythm Gastrointestinal: soft; No distended Musculoskeletal: nl extremities to inspection Results Results 24hrs Laboratory Tests Test 01/31/19 06:14 White Blood Count 6.5 Red Blood Count 3.69 L Hemoglobin 9.4 L Hematocrit 31.0 L Mean Corpuscular Volume 84.0 Mean Corpuscular Hemoglobin 25.5 L Mean Corpuscular Hemoglobin Concent 30.3 L Red Cell Distribution Width 19.5 H Platelet Count 316 Mean Platelet Volume 10.5 H Immature Granulocytes % 0.500 H Neutrophils % 78.9 H Lymphocytes % 11.8 L Monocytes % 4.9 Eosinophils % 3.4 Basophils % 0.5 Nucleated Red Blood Cells % 0.0 Immature Granulocytes # 0.030 Neutrophils # 5.2 Lymphocytes # 0.8 Monocytes # 0.3 Eosinophils # 0.2 Basophils # 0.0 Nucleated Red Blood Cells # 0.0 Sodium Level 143 Potassium Level 3.8 Chloride Level 108 Carbon Dioxide Level 28 Anion Gap 7 Blood Urea Nitrogen 9 Creatinine 0.83 Est Glomerular Filtrat Rate mL/min > 60 Glucose Level 87 Calcium Level 8.2 L Medications Medication Current Medications IV Flush (NS 3 ml) 3 ml PER PROTOCOL IV ; Start 01/25/19 at 16:00 Guaifenesin/ Dextromethorphan (Robitussin Dm Liquid Cup) 10 ml Q6H RESP THERAPY PRN PO COUGH Last administered on 01/27/19at 01:08; Admin Dose 10 ML; Start 01/27/19 at 00:40 Morphine Sulfate (morphine) 2 mg Q2H PRN IV PAIN LEVEL 6-10 Last administered on 01/31/19at 10:58; Admin Dose 2 MG; Start 01/27/19 at 18:00 Acetaminophen/ Hydrocodone Bitart ([place] (5/325)) 1 tab Q6H PRN PO PAIN LEVEL 6-10 Last administered on 01/31/19at 12:09; Admin Dose 1 TAB; Start 01/27/19 at 18:00 Acetaminophen (Tylenol Tab) 650 mg Q6H PRN PO MILD PAIN(1-3)OR ELEVATED TEMP; Start 01/27/19 at 18:00 Ibuprofen (Motrin) 600 mg Q6H PRN PO PAIN LEVEL 1-5; Start 01/29/19 at 01:00 Ondansetron HCl (Zofran Inj) 4 mg Q6H PRN IV NAUSEA AND/OR VOMITING; Start 01/27/19 at 18:00 Polyethylene Glycol (Miralax) 17 gm BID PO Last administered on 01/31/19at 08:05; Admin Dose 17 GM; Start 01/27/19 at 21:00 Docusate Sodium (Colace) 100 mg TID PRN PO CONSTIPATION; Start 01/27/19 at 19:30 Pantoprazole (Protonix Tab) 40 mg BID@0600,1800 PO Last administered on 01/31/19at 06:14; Admin Dose 40 MG; Start 01/29/19 at 18:00 Ferric Sodium Gluconate Complex 125 mg/Sodium Chloride 100 ml @ 100 mls/hr DAILY@1300 IVPB Last administered on 01/31/19at 12:09; Admin Dose 100 MLS/HR; Start 01/30/19 at 16:30; Stop 02/01/19 at 13:59 JOSE R MARIE January 31, 2019 12:17
[2019-01-31] MEDS: ACETAMINOPHEN 325 MG TAB PO PRN (16:24)
[2019-02-01] VITALS (11 sets, daily range): BP systolic 90–109; BP diastolic 52–60; PULSE 77–130; RESP 18–20
[2019-02-01] MEDS: ACETAMINOPHEN 325 MG TAB PO PRN ×3 (01:20→21:47)
[2019-02-01] MEDS: MEROPENEM 1 GM/50ML(PMX) 50 ML IVPB SCH ×3 (05:41→21:38)
[2019-02-01] MEDS: PANTOPRAZOLE (EC) 40 MG TAB PO SCH ×2 (05:42→17:44)
[2019-02-01] MEDS: HYDROCODONE/APAP (5/325) TAB PO PRN (06:45)
[2019-02-01] MEDS: POLYETHYLENE GLYCOL 17 GM PACKET PO SCH ×2 (08:01→21:37)
[2019-02-01] MEDS ORDERED: POTASSIUM CHLORIDE (SR) 20 MEQ TAB PO STA (09:16)
--- NOTE | 2019-02-01 11:42 | PN ---
Date/Time of Note Date/Time of Note DATE: 02/01/19 TIME: 11:40 Assessment/Plan VTE Prophylaxis Risk score (from Ns)>0 risk: 5 SCD applied (from Ns): Yes Pharmacological prophylaxis: NA/contraindicated Pharm contraindication: low risk/ambulating Lines/Catheters IV C[facility]ter Type (from [facility]): portacath Urinary Cath still in place: No Assessment/Plan Hospital Course 53 yo man history of GI bleed and iron-def anemia presents with severe anemia #Iron deficiency anemia - Likely the cause of headache, palpitations, weakness. 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 -Iron panel is consistent with iron deficiency, continue Ferrlecit IV -Monitor hemoglobin #Lower GI bleed - Etiology is likely internal hemorrhoids seen on colonoscopy 01/[address] Hernandez - OR for hemorrhoidectomy 01/[address] Medina - Postoperative pain control with ibuprofen, morphine. - Monitor H/H #Sepsis with bacteremia Patient with persistent fevers Blood cultures positive for gram-negative rods ID consultation obtained Continue meropenem DVT: SCDs GI: PPI Dispo: Follow-up on ID recommendations Result Diagram: 02/01/19 0530 02/01/19 0530 Results 24hrs Laboratory Tests Test 02/01/19 05:30 02/01/19 07:25 White Blood Count 9.2 # Red Blood Count 3.79 L Hemoglobin 9.6 L Hematocrit 31.6 L Mean Corpuscular Volume 83.4 Mean Corpuscular Hemoglobin 25.3 L Mean Corpuscular Hemoglobin Concent 30.4 L Red Cell Distribution Width 20.2 H Platelet Count 292 Mean Platelet Volume 10.5 H Immature Granulocytes % 0.500 H Neutrophils % 94.0 H Lymphocytes % 3.9 L Monocytes % 1.2 Eosinophils % 0.1 Basophils % 0.3 Nucleated Red Blood Cells % 0.0 Immature Granulocytes # 0.050 H Neutrophils # 8.7 H Lymphocytes # 0.4 L Monocytes # 0.1 L Eosinophils # 0.0 Basophils # 0.0 Nucleated Red Blood Cells # 0.0 Sodium Level 139 Potassium Level 3.3 L Chloride Level 105 Carbon Dioxide Level 26 Anion Gap 8 Blood Urea Nitrogen 13 Creatinine 0.98 Est Glomerular Filtrat Rate mL/min > 60 Glucose Level 91 Calcium Level 8.0 L Phosphorus Level 4.2 Magnesium Level 1.8 Lab Scanned Report BLOOD TRANSFUSION Subjective 24 Hr Interval Summary Constitutional: febrile Exam/Review of Systems Exam Vitals Vital Signs Date Temp Pulse Resp B/P (MAP) Pulse Ox O2 O2 Flow FiO2 Time Delivery Rate 02/01/19 98.6 89 20 90/52 (65) 96 11:30 02/01/19 Nasal 2.0 08:00 Cannula Intake and Output 01/31/19 01/31/19 02/01/19 1515:00 23:00 07:00 IntakeIntake Total 850 ml 1150 ml OutputOutput Total 750 ml BalanceBalance 850 ml 400 ml Constitutional: alert, oriented Respiratory: clear to auscultation Cardiovascular: regular rate and rhythm Gastrointestinal: soft; No distended Musculoskeletal: nl extremities to inspection Results Results 24hrs Laboratory Tests Test 02/01/19 05:30 02/01/19 07:25 White Blood Count 9.2 # Red Blood Count 3.79 L Hemoglobin 9.6 L Hematocrit 31.6 L Mean Corpuscular Volume 83.4 Mean Corpuscular Hemoglobin 25.3 L Mean Corpuscular Hemoglobin Concent 30.4 L Red Cell Distribution Width 20.2 H Platelet Count 292 Mean Platelet Volume 10.5 H Immature Granulocytes % 0.500 H Neutrophils % 94.0 H Lymphocytes % 3.9 L Monocytes % 1.2 Eosinophils % 0.1 Basophils % 0.3 Nucleated Red Blood Cells % 0.0 Immature Granulocytes # 0.050 H Neutrophils # 8.7 H Lymphocytes # 0.4 L Monocytes # 0.1 L Eosinophils # 0.0 Basophils # 0.0 Nucleated Red Blood Cells # 0.0 Sodium Level 139 Potassium Level 3.3 L Chloride Level 105 Carbon Dioxide Level 26 Anion Gap 8 Blood Urea Nitrogen 13 Creatinine 0.98 Est Glomerular Filtrat Rate mL/min > 60 Glucose Level 91 Calcium Level 8.0 L Phosphorus Level 4.2 Magnesium Level 1.8 Lab Scanned Report BLOOD TRANSFUSION Medications Medication Current Medications IV Flush (NS 3 ml) 3 ml PER PROTOCOL IV ; Start 01/25/19 at 16:00 Guaifenesin/ Dextromethorphan (Robitussin Dm Liquid Cup) 10 ml Q6H RESP THERAPY PRN PO COUGH Last administered on 01/27/19at 01:08; Admin Dose 10 ML; Start 01/27/19 at 00:40 Morphine Sulfate (morphine) 2 mg Q2H PRN IV PAIN LEVEL 6-10 Last administered on 01/31/19 21:07; Admin Dose 2 MG; Start 01/27/19 at 18:00 Acetaminophen/ Hydrocodone Bitart ([place] (5/325)) 1 tab Q6H PRN PO PAIN LEVEL 6-10 Last administered on 02/01/19 06:45; Admin Dose 1 TAB; Start 01/27/19 at 18:00 Acetaminophen (Tylenol Tab) 650 mg Q6H PRN PO MILD PAIN(1-3)OR ELEVATED TEMP Last administered on 02/01/19 06:48; Admin Dose 650 MG; Start 01/27/19 at 18:00 Ibuprofen (Motrin) 600 mg Q6H PRN PO PAIN LEVEL 1-5 Last administered on 02/01/19 07:50; Admin Dose 600 MG; Start 01/29/19 at 01:00 Ondansetron HCl (Zofran Inj) 4 mg Q6H PRN IV NAUSEA AND/OR VOMITING; Start 01/27/19 at 18:00 Polyethylene Glycol (Miralax) 17 gm BID PO Last administered on 02/01/19 08:01; Admin Dose 17 GM; Start 01/27/19 at 21:00 Docusate Sodium (Colace) 100 mg TID PRN PO CONSTIPATION; Start 01/27/19 at 19:30 Pantoprazole (Protonix Tab) 40 mg BID@0600,1800 PO Last administered on 02/01/19 05:42; Admin Dose 40 MG; Start 01/29/19 at 18:00 Ferric Sodium Gluconate Complex 125 mg/Sodium Chloride 100 ml @ 100 mls/hr DAILY@1300 IVPB Last administered on 01/31/19 12:09; Admin Dose 100 MLS/HR; Start 01/30/19 at 16:30; Stop 02/01/19 at 13:59 Meropenem/Sodium Chloride 50 ml @ 100 mls/hr Q8 IVPB Last administered on 02/01/19 05:41; Admin Dose 100 MLS/HR; Start 02/01/19 at 06:00 JOSE R MARIE February 01, 2019 11:42
[2019-02-01] MEDS: SOD FERRIC GLUC COMPLX 125 MG in SOD CHLORIDE 0.9% 100 ML IVPB SCH (12:04)
[2019-02-01] MEDS: morphine 2 MG INJ IV PRN (13:48)
--- NOTE | 2019-02-01 15:39 | CONS ---
DATE OF ADMISSION: 01/25/2019 DATE OF CONSULTATION: 02/01/2019 TYPE OF CONSULTATION: Infectious disease. REQUESTING PHYSICIAN: Sriram Luo MD Thank you for this consultation. HISTORY OF PRESENT ILLNESS: This is a 53-year-old man with a past medical history significant for ir on deficiency anemia and GI bleeding secondary to hemorrhoids, status post hemorrhoidectomy on [address] Medina. The patient is being seen by gastroenterology, status post colonoscopy on 0 01/26/2019 that revealed mild diverticulosis of the left colon, moderate to large internal hemorrhoids , likely source of hematochezia. The patient had been having fevers recently. He was started on livan openem today. He has a right chest Port-A-Cath. Blood culture growing gram-negative rods. DIAGNOSTICS: Chest x-ray on admission revealed no acute disease. LABORATORY DATA: WBC 9.2, H and H 9.6 and 31.6, platelets 292, neutrophils 94. BUN 13, creatinine 0 .98. Sodium 139, potassium 3.3, BUN 13, creatinine 0.98. PAST MEDICAL HISTORY: As per history of present illness. The patient has a chronic anemia, chronic GI bleed status post Port-A-Cath placed for iron infusion. SOCIAL HISTORY: Denies smoking, alcohol or illicits. PHYSICAL EXAMINATION: VITAL SIGNS: Temperature this morning 102.9, current temperature 98.6, pulse 89, respirations 20, bl ood pressure 90/52, saturation 96% on nasal cannula. GENERAL: This is a well-developed, well-nourished, middle-aged man who is alert, in no dist ress. The patient is complaining of chills. HEENT: Head is atraumatic, normocephalic. Sclerae are anicteric. Buccal mucosa is dry. NECK: Supple. CHEST: Rise symmetrical. Breath sounds are clear. HEART: S1, S2. ABDOMEN: Soft. Bowel tones are present. EXTREMITIES: Without cyanosis. DIAGNOSTIC IMPRESSION: This is a 57-year-old man with acute on chronic anemia who is status post ope n hemorrhoidectomy 5 days ago, now with ongoing fevers and blood culture growing gram-negative rods. The patient is on meropenem currently. We will repeat chest x-ray and order urine culture. We will also repeat blood cultures from Port-A-Cath to make sure it is not infected. Await for final result s. I discussed with Dr. Griselda Santizo. Dictated By: JAYRO SANTIAGO [employer] H[employer] INSPECTOR for GRISELDA SANTIZO MD NI/NTS Conf#: [id number] DID#: [id number] CC: SRIRAM LUO MD; MADDIE HOYOS MD;*EndCC*
[2019-02-02] VITALS (12 sets, daily range): BP systolic 91–103; BP diastolic 52–59; PULSE 63–89; RESP 18–20
[2019-02-02] MEDS: morphine 2 MG INJ IV PRN ×2 (03:51→05:58)
[2019-02-02] MEDS: PANTOPRAZOLE (EC) 40 MG TAB PO SCH ×2 (05:52→18:08)
[2019-02-02] MEDS: MEROPENEM 1 GM/50ML(PMX) 50 ML IVPB SCH ×3 (05:52→21:25)
[2019-02-02] MEDS: POLYETHYLENE GLYCOL 17 GM PACKET PO SCH ×2 (08:28→21:24)
--- NOTE | 2019-02-02 14:35 | CONS ---
Assessment/Plan Assessment/Plan Hospital Course (Demo Recall) All noted patient is sleeping no acute changes overnight no fevers. He had been complaining of right upper quadrant abdominal pain per report WBC today 6.3 neutrophils 85 bands 10 BUN 24 creatinine 1.20 Microbiology: Blood cultures growing gram-negative rods, urine culture sent yesterday negative preliminary Chest x-rays from yesterday revealed mild right basilar atelectasis Antimicrobials: Meropenem Indwelling: Right chest Port-A-Cath Physical examination: This is well-nourished ill-appearing middle-aged man who is in no distress. Head atraumatic normocephalic neck is supple chest rise symmetrical breath sounds diminished to bases heart: S1-S2 abdomen obese soft bowel sounds present extremities with trace edema Assessment: 1. Sepsis with gram-negative ness bacteremia, rule out line sepsis 2. Status post open hemorrhoidectomy 01/27/19 3. Acute on chronic anemia 4. Abdominal pain Plan: Patient is stable, afebrile, he does not have any wounds per report he is on appropriate antibiotic regimen pending final cultures, blood cultures also were repeated yesterday from [facility] and those are pending, we will order KUB Consultation Date/Type/Reason Admit Date/Time January 25, 2019 at 12:37 Initial Consult Date 01/25/19 Type of Consult id Date/Time of Note DATE: 02/02/19 TIME: 14:34 Exam/Review of Systems Exam Vitals Vital Signs Date Temp Pulse Resp B/P (MAP) Pulse Ox O2 O2 Flow FiO2 Time Delivery Rate 02/02/19 89 12:00 02/02/19 97.7 20 98/57 (71) 94 11:20 02/02/19 Nasal 2.0 08:20 Cannula Intake and Output 02/01/19 02/01/19 02/02/19 1515:00 23:00 07:00 IntakeIntake Total 1350 ml OutputOutput Total 2 ml BalanceBalance 1350 ml -2 ml Results Result Diagram: 02/02/19 0553 02/02/19 0553 Results 24hrs Laboratory Tests Test 02/02/19 05:53 White Blood Count 6.3 # Red Blood Count 3.80 L Hemoglobin 9.6 L Hematocrit 31.5 L Mean Corpuscular Volume 82.9 Mean Corpuscular Hemoglobin 25.3 L Mean Corpuscular Hemoglobin Concent 30.5 L Red Cell Distribution Width 20.6 H Platelet Count 240 Mean Platelet Volume 10.5 H Immature Granulocytes % 0.500 H Neutrophils % Segmented Neutrophils % (Manual) 85 H Band Neutrophils % (Manual) 10 H Lymphocytes % Lymphocytes % (Manual) 2 L Monocytes % Eosinophils % Basophils % Metamyelocytes % (manual) 1 H Myelocytes % (Manual) 2 H Nucleated Red Blood Cells % 0.0 Immature Granulocytes # 0.030 Neutrophils # Neutrophils # (Manual) 5.4 Band Neutrophils # 0.6 Lymphocytes (Manual) 0.1 L Lymphocytes # Monocytes # Eosinophils # Basophils # Metamyelocytes # 0.0 Myelocytes # 0.1 H Nucleated Red Blood Cells # Platelet Estimate NORMAL Polychromasia 2+ Hypochromasia 1+ Poikilocytosis 2+ Anisocytosis 1+ Microcytosis 1+ Tear Drop Cells 1+ Ovalocytes 1+ Elliptocytes 1+ Sodium Level 136 Potassium Level 3.5 Chloride Level 104 Carbon Dioxide Level 24 Anion Gap 8 Blood Urea Nitrogen 24 #H Creatinine 1.20 Est Glomerular Filtrat Rate mL/min > 60 Glucose Level 103 Calcium Level 7.5 L Medications Medication Current Medications IV Flush (NS 3 ml) 3 ml PER PROTOCOL IV ; Start 01/25/19 at 16:00 Guaifenesin/ Dextromethorphan (Robitussin Dm Liquid Cup) 10 ml Q6H RESP THERAPY PRN PO COUGH Last administered on 01/27/19at 01:08; Admin Dose 10 ML; Start 01/27/19 at 00:40 Morphine Sulfate (morphine) 2 mg Q2H PRN IV PAIN LEVEL 6-10 Last administered on 02/02/19at 05:58; Admin Dose 2 MG; Start 01/27/19 at 18:00 Acetaminophen/ Hydrocodone Bitart ([place] (5/325)) 1 tab Q6H PRN PO PAIN LEVEL 6-10 Last administered on 02/01/19 06:45; Admin Dose 1 TAB; Start 01/27/19 at 18:00 Acetaminophen (Tylenol Tab) 650 mg Q6H PRN PO MILD PAIN(1-3)OR ELEVATED TEMP Last administered on 02/01/19at 21:47; Admin Dose 650 MG; Start 01/27/19 at 18:00 Ibuprofen (Motrin) 600 mg Q6H PRN PO PAIN LEVEL 1-5 Last administered on 02/01/19at 07:50; Admin Dose 600 MG; Start 01/29/19 at 01:00 Ondansetron HCl (Zofran Inj) 4 mg Q6H PRN IV NAUSEA AND/OR VOMITING; Start 01/27/19 at 18:00 Polyethylene Glycol (Miralax) 17 gm BID PO Last administered on 02/02/19at 08:28; Admin Dose 17 GM; Start 01/27/19 at 21:00 Docusate Sodium (Colace) 100 mg TID PRN PO CONSTIPATION; Start 01/27/19 at 19:30 Pantoprazole (Protonix Tab) 40 mg BID@0600,1800 PO Last administered on 02/02/19at 05:52; Admin Dose 40 MG; Start 01/29/19 at 18:00 Meropenem/Sodium Chloride 50 ml @ 100 mls/hr Q8 IVPB Last administered on 02/02/19at 05:52; Admin Dose 100 MLS/HR; Start 02/01/19 at 06:00 JAYRO SANTIAGO NP February 02, 2019 14:35
[2019-02-02] MEDS: HYDROCODONE/APAP (5/325) TAB PO PRN ×2 (14:51→21:24)
--- NOTE | 2019-02-02 15:10 | PN ---
Date/Time of Note Date/Time of Note DATE: 02/02/19 TIME: 15:09 Assessment/Plan VTE Prophylaxis Risk score (from Ns)>0 risk: 4 SCD applied (from Ns): Yes Pharmacological prophylaxis: NA/contraindicated Pharm contraindication: low risk/ambulating Lines/Catheters IV C[facility] Type [facility]from [facility] Portacath Urinary Cath still in place: No Assessment/Plan Hospital Course 53 yo man history of GI bleed and iron-def anemia presents with severe anemia #Iron deficiency anemia - Likely the cause of headache, palpitations, weakness. 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 -Iron panel is consistent with iron deficiency, continue Ferrlecit IV -Monitor hemoglobin #Lower GI bleed - Etiology is likely internal hemorrhoids seen on colonoscopy 01/[address] Hernandez - OR for hemorrhoidectomy 01/[address] Medina - Postoperative pain control with ibuprofen, morphine. - Monitor H/H #Sepsis with bacteremia Patient was having persistent fevers which is now resolved Blood cultures positive for gram-negative rods ID consultation appreciated Continue meropenem DVT: SCDs GI: PPI Dispo: Follow-up on ID recommendations Result Diagram: 02/02/19 0553 02/02/19 0553 Results 24hrs Laboratory Tests Test 02/02/19 05:53 White Blood Count 6.3 # Red Blood Count 3.80 L Hemoglobin 9.6 L Hematocrit 31.5 L Mean Corpuscular Volume 82.9 Mean Corpuscular Hemoglobin 25.3 L Mean Corpuscular Hemoglobin Concent 30.5 L Red Cell Distribution Width 20.6 H Platelet Count 240 Mean Platelet Volume 10.5 H Immature Granulocytes % 0.500 H Neutrophils % Segmented Neutrophils % (Manual) 85 H Band Neutrophils % (Manual) 10 H Lymphocytes % Lymphocytes % (Manual) 2 L Monocytes % Eosinophils % Basophils % Metamyelocytes % (manual) 1 H Myelocytes % (Manual) 2 H Nucleated Red Blood Cells % 0.0 Immature Granulocytes # 0.030 Neutrophils # Neutrophils # (Manual) 5.4 Band Neutrophils # 0.6 Lymphocytes (Manual) 0.1 L Lymphocytes # Monocytes # Eosinophils # Basophils # Metamyelocytes # 0.0 Myelocytes # 0.1 H Nucleated Red Blood Cells # Platelet Estimate NORMAL Polychromasia 2+ Hypochromasia 1+ Poikilocytosis 2+ Anisocytosis 1+ Microcytosis 1+ Tear Drop Cells 1+ Ovalocytes 1+ Elliptocytes 1+ Sodium Level 136 Potassium Level 3.5 Chloride Level 104 Carbon Dioxide Level 24 Anion Gap 8 Blood Urea Nitrogen 24 #H Creatinine 1.20 Est Glomerular Filtrat Rate mL/min > 60 Glucose Level 103 Calcium Level 7.5 L Subjective 24 Hr Interval Summary Constitutional: no complaints Exam/Review of Systems Exam Vitals Vital Signs Date Temp Pulse Resp B/P (MAP) Pulse Ox O2 O2 Flow FiO2 Time Delivery Rate 02/02/19 89 12:00 02/02/19 97.7 20 98/57 (71) 94 11:20 02/02/19 Nasal 2.0 08:20 Cannula Intake and Output 02/01/19 02/01/19 02/02/19 1515:00 23:00 07:00 IntakeIntake Total 1350 ml OutputOutput Total 2 ml BalanceBalance 1350 ml -2 ml Constitutional: alert, oriented Respiratory: clear to auscultation Cardiovascular: regular rate and rhythm Gastrointestinal: soft; No distended Musculoskeletal: nl extremities to inspection Results Results 24hrs Laboratory Tests Test 02/02/19 05:53 White Blood Count 6.3 # Red Blood Count 3.80 L Hemoglobin 9.6 L Hematocrit 31.5 L Mean Corpuscular Volume 82.9 Mean Corpuscular Hemoglobin 25.3 L Mean Corpuscular Hemoglobin Concent 30.5 L Red Cell Distribution Width 20.6 H Platelet Count 240 Mean Platelet Volume 10.5 H Immature Granulocytes % 0.500 H Neutrophils % Segmented Neutrophils % (Manual) 85 H Band Neutrophils % (Manual) 10 H Lymphocytes % Lymphocytes % (Manual) 2 L Monocytes % Eosinophils % Basophils % Metamyelocytes % (manual) 1 H Myelocytes % (Manual) 2 H Nucleated Red Blood Cells % 0.0 Immature Granulocytes # 0.030 Neutrophils # Neutrophils # (Manual) 5.4 Band Neutrophils # 0.6 Lymphocytes (Manual) 0.1 L Lymphocytes # Monocytes # Eosinophils # Basophils # Metamyelocytes # 0.0 Myelocytes # 0.1 H Nucleated Red Blood Cells # Platelet Estimate NORMAL Polychromasia 2+ Hypochromasia 1+ Poikilocytosis 2+ Anisocytosis 1+ Microcytosis 1+ Tear Drop Cells 1+ Ovalocytes 1+ Elliptocytes 1+ Sodium Level 136 Potassium Level 3.5 Chloride Level 104 Carbon Dioxide Level 24 Anion Gap 8 Blood Urea Nitrogen 24 #H Creatinine 1.20 Est Glomerular Filtrat Rate mL/min > 60 Glucose Level 103 Calcium Level 7.5 L Medications Medication Current Medications IV Flush (NS 3 ml) 3 ml PER PROTOCOL IV ; Start 01/25/19 at 16:00 Guaifenesin/ Dextromethorphan (Robitussin Dm Liquid Cup) 10 ml Q6H RESP THERAPY PRN PO COUGH Last administered on 01/27/19 01:08; Admin Dose 10 ML; Start 01/27/19 at 00:40 Morphine Sulfate (morphine) 2 mg Q2H PRN IV PAIN LEVEL 6-10 Last administered on 02/02/19 05:58; Admin Dose 2 MG; Start 01/27/19 at 18:00 Acetaminophen/ Hydrocodone Bitart ([place] (5/325)) 1 tab Q6H PRN PO PAIN LEVEL 6-10 Last administered on 02/02/19 14:51; Admin Dose 1 TAB; Start 01/27/19 at 18:00 Acetaminophen (Tylenol Tab) 650 mg Q6H PRN PO MILD PAIN(1-3)OR ELEVATED TEMP Last administered on 02/01/19 21:47; Admin Dose 650 MG; Start 01/27/19 at 18:00 Ibuprofen (Motrin) 600 mg Q6H PRN PO PAIN LEVEL 1-5 Last administered on 02/01/19 07:50; Admin Dose 600 MG; Start 01/29/19 at 01:00 Ondansetron HCl (Zofran Inj) 4 mg Q6H PRN IV NAUSEA AND/OR VOMITING; Start 01/27/19 at 18:00 Polyethylene Glycol (Miralax) 17 gm BID PO Last administered on 02/02/19 08:28; Admin Dose 17 GM; Start 01/27/19 at 21:00 Docusate Sodium (Colace) 100 mg TID PRN PO CONSTIPATION; Start 01/27/19 at 1 9:30 Pantoprazole (Protonix Tab) 40 mg BID@0600,1800 PO Last administered on 02/02/19 05:52; Admin Dose 40 MG; Start 01/29/19 at 18:00 Meropenem/Sodium Chloride 50 ml @ 100 mls/hr Q8 IVPB Last administered on 02/02/19 14:47; Admin Dose 100 MLS/HR; Start 02/01/19 at 06:00 JOSE R MARIE February 02, 2019 15:10
[2019-02-03] VITALS (10 sets, daily range): BP systolic 101–120; BP diastolic 61–72; PULSE 68–80; RESP 18–20
[2019-02-03] MEDS: morphine 2 MG INJ IV PRN ×2 (04:02→13:26)
[2019-02-03] MEDS: PANTOPRAZOLE (EC) 40 MG TAB PO SCH ×2 (05:27→18:25)
[2019-02-03] MEDS: MEROPENEM 1 GM/50ML(PMX) 50 ML IVPB SCH ×2 (05:27→13:15)
[2019-02-03] MEDS: POLYETHYLENE GLYCOL 17 GM PACKET PO SCH (09:18)
--- NOTE | 2019-02-03 14:27 | CONS ---
Assessment/Plan Assessment/Plan Hospital Course (Demo Recall) Patient is alert still complaining of abdominal pain no fevers overnight no diarrhea KUB was negative Microbiology: Blood culture initially grew E. coli ESBL and Citrobacter, repeat blood cultures negative, urine culture negative Antimicrobials: Meropenem Indwelling: Right chest Port-A-Cath Physical examination: This is well-nourished ill-appearing middle-aged man who is in no distress. Head atraumatic normocephalic neck is supple chest rise symmetrical breath sounds diminished to bases heart: S1-S2 abdomen obese soft bowel sounds present extremities with trace edema Assessment: 1. Sepsis with gram-negative ness bacteremia, rule out line sepsis 2. Status post open hemorrhoidectomy 01/27/19 3. Acute on chronic anemia 4. Abdominal pain Plan: Patient is stable and afebrile, repeat blood cultures negative, KUB negative, continue antibiotics to complete 2 weeks Consultation Date/Type/Reason Admit Date/Time January 25, 2019 at 12:37 Initial Consult Date 01/25/19 Type of Consult id Date/Time of Note DATE: 02/03/19 TIME: 14:26 Exam/Review of Systems Exam Vitals Vital Signs Date Temp Pulse Resp B/P (MAP) Pulse Ox O2 O2 Flow FiO2 Time Delivery Rate 02/03/19 80 12:09 02/03/19 98.3 18 108/63 96 11:29 (78) 02/03/19 Room Air 03:55 02/02/19 2.0 20:30 Intake and Output 02/02/19 02/02/19 02/03/19 1515:00 23:00 07:00 IntakeIntake Total 500 ml 1150 ml BalanceBalance 500 ml 1150 ml Results Result Diagram: 02/02/19 0553 02/02/19 0553 Results 24hrs Laboratory Tests Test 02/03/19 06:46 Phosphorus Level 3.1 Magnesium Level 2.3 Medications Medication Current Medications IV Flush (NS 3 ml) 3 ml PER PROTOCOL IV ; Start 01/25/19 at 16:00 Guaifenesin/ Dextromethorphan (Robitussin Dm Liquid Cup) 10 ml Q6H RESP THERAPY PRN PO COUGH Last administered on 01/27/19at 01:08; Admin Dose 10 ML; Start 01/27/19 at 00:40 Morphine Sulfate (morphine) 2 mg Q2H PRN IV PAIN LEVEL 6-10 Last administered on 02/03/19 13:26; Admin Dose 2 MG; Start 01/27/19 at 18:00 Acetaminophen/ Hydrocodone Bitart (Jane [place] (5/325)) 1 tab Q6H PRN PO PAIN LEVEL 6-10 Last administered on 02/02/19 21:24; Admin Dose 1 TAB; Start 01/27/19 at 18:00 Acetaminophen (Tylenol Tab) 650 mg Q6H PRN PO MILD PAIN(1-3)OR ELEVATED TEMP Last administered on 02/01/19 21:47; Admin Dose 650 MG; Start 01/27/19 at 18:00 Ibuprofen (Motrin) 600 mg Q6H PRN PO PAIN LEVEL 1-5 Last administered on 02/01/19 07:50; Admin Dose 600 MG; Start 01/29/19 at 01:00 Ondansetron HCl (Zofran Inj) 4 mg Q6H PRN IV NAUSEA AND/OR VOMITING; Start 01/27/19 at 18:00 Polyethylene Glycol (Miralax) 17 gm BID PO Last administered on 02/03/19 09:18; Admin Dose 17 GM; Start 01/27/19 at 21:00 Docusate Sodium (Colace) 100 mg TID PRN PO CONSTIPATION; Start 01/27/19 at 19:30 Pantoprazole (Protonix Tab) 40 mg BID@0600,1800 PO Last administered on 02/03/19 05:27; Admin Dose 40 MG; Start 01/29/19 at 18:00 Meropenem/Sodium Chloride 50 ml @ 100 mls/hr Q8 IVPB Last administered on 02/03/19 13:15; Admin Dose 100 MLS/HR; Start 02/01/19 at 06:00 JAYRO SANTIAGO NP February 03, 2019 14:27
[2019-02-03] MEDS: HYDROCODONE/APAP (5/325) TAB PO PRN (14:28)
[2019-02-03] MEDS ORDERED: CIPR-193 PO (15:46)
[2019-02-03] MEDS ORDERED: HYDR-3601 PO (15:46)
--- NOTE | 2019-02-03 15:47 | PDOCDIS ---
Discharge Instructions CONDITION [id number] Patient Condition: [id number] Good HOME CARE INSTRUCTIONS: [id number] Diet Instructions: [id number] Regular ACTIVITY: [id number] Activity Restrictions: [id number] No Restrictions FOLLOW UP/APPOINTMENTS Follow-up Plan Follow-up with PCP 1 to 2 weeks, follow-up with Dr. Tenzin Medina of surgery in 1 to 2 weeks JOSE R MAIRE February 03, 2019 15:47
--- NOTE | 2019-02-03 15:51 | DS ---
Date/Time of Note Date/Time of Note DATE: 02/03/19 TIME: 15:47 Discharge Summary Admission/Discharge Info Admit Date/Time January 25, 2019 at 12:37 Discharge Date/Time February 03, 2019 Discharge Diagnosis 53 yo man history of GI bleed and iron-def anemia presents with severe anemia #Iron deficiency anemia secondary to acute blood loss from GI bleed - Likely the cause of headache, palpitations, weakness. 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 -Iron panel is consistent with iron deficiency, status post Ferrlecit IV -Continue iron p.o. #Lower GI bleed - Etiology is internal hemorrhoids seen on colonoscopy 01/[address] Hernandez - OR for hemorrhoidectomy 01/[address] Medina - Postoperative pain control with ibuprofen, morphine. -DC with [place] #Sepsis with bacteremia Patient was having persistent fevers which is now resolved Blood cultures positive for Citrobacter and E. coli ESBL, repeat cultures are negative and patient has no further evidence of sepsis ID consultation appreciated Status post meropenem, DC with Cipro Patient Condition: Good Hospital Course Patient is a 53 yo man history of GI bleed and iron-def anemia presents with severe anemia. Patient did receive 7 units of packed red blood cells in total during this hospitalization as well as Ferrlecit IV for his iron deficiency. Etiology of GI bleed was secondary to hemorrhoids as noted on colonoscopy per GI. Patient was seen by surgery and went to the OR on 01/27 for a hemorrhoidectomy. Patient's postop course was complicated by significant pain as well as sepsis, blood cultures grew Citrobacter and E. coli ESBL. Patient received meropenem and was seen by ID, patient did have resolution of fevers and sepsis. Patient was stable for DC, on day of discharge patient's vitals, labs and physical exam are stable. Home Meds Active Scripts Ciprofloxacin Hcl* (Ciprofloxacin Hcl*) 250 Mg Tablet, 250 MG PO BID for 4 Days, #8 TAB Prov:JOSE R MARIE 02/03/19 Hydrocodone Bit-Acetaminophen (Hydrocodone Bit-APAP) 5-325MG Tablet, 1 TAB PO Q6H PRN for PAIN LEVEL 6-10, #30 TAB Prov:JOSE R MARIE 02/03/19 Pantoprazole* (Protonix*) 40 Mg Tablet., 40 MG PO DAILY for 30 Days, #30 TAB 2 Refills Prov:ALYCE DECKERGabrielle 01/08/19 Reported Medications Ferrous Sulfate* (Ferrous Sulfate*) 325 Mg Tabec, 325 MG PO DAILY, TAB 01/25/19 Follow-up Plan Follow-up with PCP 1 to 2 weeks, follow-up with Dr. Tenzin Medina of surgery in 1 to 2 weeks Primary Care Provider Not On Staff Doctor Time spent on discharge: > 30 minutes JOSE R MARIE February 03, 2019 15:51
[2019-02-03] MEDS ORDERED: HEPARIN (100 UNITS/ML) 5 ML SYG CATHETER ONE (16:30)
== END 2019-02-03 19:05 | disposition home or self-care (01) | DRG 347 ==
LOC: E/R 08:59 → TEL 12:37
PROVIDERS: ADMIT Internal Medicine; ATTEND Internal Medicine
PROC: 30233N1 Transfusion of Nonautologous Red Blood Cells into Peripheral Vein, Percutaneous Approach (ICD-10-PCS; 2019-01-25)
PROC: 0W3P8ZZ Control Bleeding in Gastrointestinal Tract, Via Natural or Artificial Opening Endoscopic (ICD-10-PCS; 2019-01-26)
PROC: 06BY0ZC Excision of Hemorrhoidal Plexus, Open Approach (ICD-10-PCS; principal; 2019-01-27 17:00)
DX: K64.8 Other hemorrhoids (principal); A41.51 Sepsis due to Escherichia coli [E. coli]; A41.59 Other Gram-negative sepsis; K55.21 Angiodysplasia of colon with hemorrhage; D62 Acute posthemorrhagic anemia; T81.44XA Sepsis following a procedure, initial encounter; K57.30 Diverticulosis of large intestine without perforation or abscess without bleeding; Z16.12 Extended spectrum beta lactamase (ESBL) resistance
CPT/HCPCS: 36415; 36430; 71045; 74018; 78278; 80048; 80053; 82728; 83036; 83540; 83735; 84100; 84484; 85014; 85018; 85025; 85610; 85730; 86644; 86850; 86900; 86901; 86920; 86945; 87081; 87086; 88304; 96365; 96366; A9560; C9113; J0690; J1642; J1650; J1885; J2185; J2250; J2270; J2405; J2710; J2916; J3010; J3480; J7030; J7040; P9016

== ENCOUNTER 2019-02-20 17:29 | Inpatient (IN) | payer OTHER ==
[~2019-02-20] VITALS: Ht 165.1 cm; Wt 89.2 kg
[~2019-02-20 17:29] MED LIST changes: +CIPR-193 PO; +FER325 PO; +HYDR-3601 PO
[2019-02-20] MEDS ORDERED: ACETAMINOPHEN 325 MG TAB PO STA (17:44)
[2019-02-20] MEDS ORDERED: SODIUM CHLORIDE 0.9% 1L BAG IV* STA (17:44)
[2019-02-20] MEDS ORDERED: CEFEPIME 2GM/50 ML (PMX) 50 ML IVPB STA (17:44)
[2019-02-20] MEDS ORDERED: ALBUTEROL 0.5% (NEB) 2.5 MG/0.5 ML AMP INH STA (17:57)
[2019-02-20] MEDS ORDERED: VANCOMYCIN 1 GM (PMX) 250 ML IVPB ONE (18:00)
[2019-02-20] MEDS ORDERED: SOD CHLORIDE 0.9% 100 ML ONE (18:31)
[2019-02-20] MEDS ORDERED: IODIXANOL LOCM 100 ML BTL ONE (18:31)
--- NOTE | 2019-02-20 19:29 | ERD ---
ER Documentation Chief Complaint Chief Complaint FEVER , CHEST PAIN X 1 DAY HPI This is a 53-year-old male who was discharged from this hospital a week ago after hemorrhoid surgery. The patient says that he is been doing okay at home except over the past couple of days he has been having fever and chills and he called his doctor and the doctor told him to come to the ER because he may have bacteria in his blood. Patient has no nausea vomiting or diarrhea. Denies any cough or dysuria. He says the postoperative healing is a bit sore but no blood in his stools. No abdominal pain. ROS All systems reviewed and are negative except as per history of present illness. Medications Home Meds Active Scripts Ciprofloxacin Hcl* (Ciprofloxacin Hcl*) 250 Mg Tablet, 250 MG PO BID for 4 Days, #8 TAB Prov:JOSE R MARIE 02/03/19 Hydrocodone Bit-Acetaminophen (Hydrocodone Bit-APAP) 5-325MG Tablet, 1 TAB PO Q6H PRN for PAIN LEVEL 6-10, #30 TAB Prov:JOSE R MARIE 02/03/19 Pantoprazole* (Protonix*) 40 Mg Tablet.dr, 40 MG PO DAILY for 30 Days, #30 TAB 2 Refills Prov:ALYCE DECKER 01/08/19 Reported Medications Ferrous Sulfate* (Ferrous Sulfate*) 325 Mg Tabec, 325 MG PO DAILY, TAB 01/25/19 Allergies Allergies: Coded Allergies: No Known Allergy (Unverified , 01/04/19) PMhx/Soc History of Surgery: Yes (RIGHT SHOULDER SX AND KNEE SURGERY, hemorrhoidectomy ) Anesthesia Reaction: No Hx Neurological Disorder: No Hx Respiratory Disorders: No Hx Cardiac Disorders: No Hx Psychiatric Problems: No Hx Miscellaneous Medical Probl: Yes (anemia) Hx Alcohol Use: No Hx Substance Use: No Hx Tobacco Use: No Smoking Status: Never smoker FmHx Family History: No coronary disease Physical Exam Vitals Vital Signs Date Temp Pulse Resp B/P (MAP) Pulse Ox O2 O2 Flow FiO2 Time Delivery Rate 02/20/19 100.1 109 30 82/55 (64) 95 Nasal 2.0 21:45 Cannula 02/20/19 116 30 87/53 (64) 100 Nasal 2.0 20:22 Cannula 02/20/19 104.2 20:19 02/20/19 104.3 19:26 02/20/19 104.6 138 30 84/45 (58) 100 Room Air 18:49 02/20/19 119 22 100 Non 15.0 18:09 Rebreathe r Mask 02/20/19 15.0 18:09 02/20/19 15 17:55 02/20/19 103.0 17:51 02/20/19 103.7 138 22 107/48 92 17:31 (67) Physical Exam Const: Well-developed, well-nourished Head: Atraumatic, normocephalic Eyes: Normal Conjunctiva, PERRLA, EOMI, normal sclera, no nystagmus ENT: Normal External Ears, Nose and Mouth, moist mucus membranes. Neck: Full range of motion. No meningismus, no lymphadenopathy. Resp: Clear to auscultation bilaterally, no wheezing, rhonchi, rales, right chest Mediport Cardio: Tachycardia, no murmurs, S1 S2 present] Abd: Soft, non tender x 4, non distended. Normal bowel sounds, no guarding or rebound, no pulsitile abdominal masses or bruits Skin: No petechiae or rashes, no ecchymosis , no maculopapular rash Back: No midline or flank tenderness Ext: No cyanosis, or edema, FROM x 4, normal inspection, neurovascularly intact x 4 Neur: Awake and alert, STR 5/5 x 4, sensation intact x 4, no focal findings, cerebellum intact Psych: Normal Mood and Affect Result Diagram: 02/20/19 1734 02/20/19 1734 Results 24 hrs Laboratory Tests Test 02/20/19 17:34 02/20/19 17:39 02/20/19 19:29 02/20/19 21:16 White Blood Count 1.5 10^3/ul Red Blood Count 5.20 10^6/ul Hemoglobin 12.5 g/dl Hematocrit 42.5 % Mean Corpuscular 81.7 fl Volume Mean Corpuscular 24.0 pg Hemoglobin Mean Corpuscular 29.4 g/dl Hemoglobin Concent Red Cell Distribution 19.9 % Width Platelet Count 278 10^3/UL Mean Platelet Volume 11.1 fl Immature Granulocytes 0.700 % % Neutrophils % % Segmented Neutrophils 90 % % (Manual) Band Neutrophils % 2 % (Manual) Lymphocytes % % Lymphocytes % (Manual) 8 % Monocytes % % Eosinophils % % Basophils % % Nucleated Red Blood 0.0 /100WBC Cells % Immature Granulocytes 0.010 10^3/ul # Neutrophils # 10^3/ul Neutrophils # (Manual) 1.4 10^3/ul Band Neutrophils # 0.0 10^3/ul Lymphocytes (Manual) 0.1 10^3/ul Lymphocytes # 10^3/ul Monocytes # 10^3/ul Eosinophils # 10^3/ul Basophils # 10^3/ul Nucleated Red Blood 10^3/ul Cells # Platelet Estimate NORMAL Giant Platelets 14 % Polychromasia 1+ Poikilocytosis 3+ Anisocytosis 1+ Microcytosis 1+ Tear Drop Cells 1+ Ovalocytes 2+ Prothrombin Time 15.0 Sec Prothrombin Time Ratio 1.2 INR International 1.17 Normalized Ratio Activated 23.5 Sec Partial Thromboplast Time Sodium Level 139 mmol/L Potassium Level 3.3 mmol/L Chloride Level 104 mmol/L Carbon Dioxide Level 22 mmol/L Anion Gap 13 Blood Urea Nitrogen 15 mg/dl Creatinine 1.22 mg/dl Est Glomerular Filtrat > 60 mL/min Rate mL/min Glucose Level 111 mg/dl Calcium Level 9.2 mg/dl Total Bilirubin 0.8 mg/dl Direct Bilirubin 0.00 mg/dl Indirect Bilirubin 0.8 mg/dl Aspartate Amino 133 IU/L Transf (AST/SGOT) Alanine 92 IU/L Aminotransferase (ALT/ SGPT) Alkaline Phosphatase 281 IU/L Troponin I < 0.012 ng/ml Total Protein 6.8 g/dl Albumin 3.5 g/dl Globulin 3.30 g/dl Albumin/Globulin Ratio 1.06 POC Venous Lactate 4.8 mmol/L Lactic Acid Level 3.4 mmol/L 2.6 mmol/L Current Medications Medications Dose Sig/Mariano Start Time Status Last (Trade) Ordered Route PRN Stop Time Admin Dose Reason Admin Sodium 2,400 ml BOLUS OVER 2 02/20/19 DC 02/20/19 Chloride HOURS STAT 17:44 02/20/19 17:52 (NS) IV* 17:45 650 mg ONCE STAT 02/20/19 DC 02/20/19 Acetaminophen PO 17:44 02/20/19 17:51 (Tylenol 17:45 Tab) Cefepime HCl 50 ml @ ONCE STAT 02/20/19 DC 02/20/19 100 mls/hr IVPB 17:44 02/20/19 17:51 18:13 Vancomycin 250 ml @ ONCE ONCE 02/20/19 DC 02/20/19 HCl 125 mls/hr IVPB 18:00 02/20/19 18:05 19:59 Albuterol 10 mg ONCE STAT 02/20/19 DC 02/20/19 (Proventil INH 17:57 02/20/19 18:07 0.5% (Neb)) 17:58 IV Flush 10 ml STK-MED 02/20/19 DC 02/20/19 (NS 10 ml) ONCE .ROUTE 18:31 02/20/19 18:52 18:32 Sodium 100 ml @ ud STK-MED 02/20/19 DC 02/20/19 Chloride ONCE .ROUTE 18:31 02/20/19 18:52 18:32 Iodixanol 100 ml STK-MED 02/20/19 DC 02/20/19 (Visipaque ONCE .ROUTE 18:31 02/20/19 18:52 Locm) 18:32 Ibuprofen 800 mg ONCE ONCE 02/20/19 DC 02/20/19 (Motrin) PO 20:30 02/20/19 20:19 20:31 Sodium 1,000 ml @ Q1H STAT 02/20/19 DC 02/20/19 Chloride 1,000 mls/hr IV 20:03 02/20/19 20:20 21:02 Sodium 1,000 ml @ Q1H STAT 02/20/19 DC 02/20/19 Chloride 1,000 mls/hr IV 21:35 02/20/19 22:12 22:34 250 ml @ ONCE STAT 02/20/19 Norepinephrin 7.5 mls/hr IV 23:03 e 02/22/19 08:22 Procedures/[place] [address] Radiology Main Line: [phone] DIAGNOSTIC IMAGING REPORT Patient: CANDI JENKINS : 1965 Age: 53 Sex: M MR #: [id number] DOS: 02/20/19 1748 Ordering MD: JAS STONE DO Location: E/R Room/Bed: PROCEDURE: CT of the abdomen and pelvis CLINICAL INDICATION: Abdominal pain. Postoperative from hemorrhoids with sepsis TECHNIQUE: The study was performed utilizing a GE [employer] 64-slice multidetector CT scanner. Direct spiral axial sections were obtained through the abdomen and pelvis with intravenous contrast. After administration of 100cc of Visipaque 320, postcontrast images were obtained. Coronal and sagittal reformatted images were performed. The CTDI vol is 18.94 mGy and the DLP is 1209.82 mGy-cm. The images were reviewed on a PACS workstation. DICOM images are available. One or more of the following dose reduction techniques were used: Automated exposure control. Adjustment of the mA and/or kV according to patient size. Use of iterative reconstruction technique. COMPARISON: 10/03/2018 FINDINGS: CT abdomen: Bibasilar air space disease is seen which may represent atelectasis. The heart is not enlarged. No pericardial effusion is seen. The liver is again noted be enlarged measuring 23.2 cm. No focal liver lesions or intrahepatic biliary dilatation is seen. The gallbladder is contracted. No common bile duct dilatation is seen. The spleen is again noted to be enlarged measuring 50.5 cm. Low attenuation lesions are seen within the spleen with the largest measuring approximately 11 x 9.5 x 7.4 cm in size and are new compared to the prior examination. The pancreas, and adrenal glands are unremarkable in appearance. The kidneys are normal in size and contour enhance normally. No evidence of hydronephrosis or nephrolithiasis is seen. The stomach is unremarkable. The large bowel is diffusely fluid-filled. Scattered diverticula in the descending and sigmoid colon are seen without definite evidence of diverticulitis. The distal small bowel is nondilated and fluid-filled. The remainder of the small bowel are unremarkable in course and caliber. A normal appendix is identified. No enlarged lymph nodes or fluid collections are seen. The aorta is normal in caliber. CT pelvis: No pelvic mass, adenopathy, or focal fluid collection is seen. There is no free fluid. The urinary bladder is normal. The pelvic organs are unremarkable. No osseous lesions are seen. 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 IMPRESSION: 1. Multiple low attenuation splenic lesions which are new compared to prior exa mination and may be infectious/inflammatory in etiology such as abscesses. A less likely etiology include splenic infarcts. 2. Findings which may represent enterocolitis as described above. 3. Bibasilar airspace disease which may represent atelectasis. RPTAT: HPNM Asher Pires, Physician Date Time Electronically viewed and signed by Asher Pires, Physician on 02/20/2019 19:11 / CC: JAS TSONE DO [id number] [place] [address] Radiology Main Line: [phone] DIAGNOSTIC IMAGING REPORT Patient: CANDI JENKINS : 1965 Age: 53 Sex: M MR #: [id number] DOS: 02/20/19 1744 Ordering MD: JAS STONE DO Location: E/R Room/Bed: PROCEDURE: One view chest radiograph. CLINICAL INDICATION: Possible sepsis TECHNIQUE: An AP view of the chest was obtained. COMPARISON: 12/02/2018 FINDINGS: Mediastinum: There is now a Port-A-Cath in place with the tip at the cavoatrial junction or upper right atrium, inserted via a right internal jugular approach. Heart size: Normal. Pulmonary vasculature: No visible engorgement. Lungs: Lung volumes are very low. There appears to be atelectasis or infiltrate in the left lower lobe behind the heart, blurring portions of the left hemidiaphragmatic silhouette . Costophrenic sulci: Obscured on the left. Bony structures: Grossly unremarkable for age. IMPRESSION: 1. Findings suggesting left lower lobe pneumonia, new since the prior study. 2. Interval placement of a right IJ Port-A-Cath with the tip in the region of the cavoatrial junction or upper right atrium. RPTAT:AAJJ Fly Sadler, Physician Date Time Electronically viewed and signed by Fly Sadler Physician on 02/20/2019 18:16 GW/ CC: JAS STONE DO [id number] Admit MDM: Patient's infectious symptoms have not stabilized and the patient is at risk of rapid decompensation. The patient will be admitted for careful hydration, antibiotic therapy, and infectious source control. Severe Sepsis criteria: Infectious source: Pneumonia End organ damage indicated by: Elevated lactate Lactate > 2.0 mmol/L Hypotension (SBP < 90 or >40 mmHG drop or MAP < 65) Acute Resp Failure (sat < 92% w/o oxygen) Liability Analyst > 2.0 INR > 1.5 Plt < 100 Bili > 2 Sepsis Management: Time of recognition of severe sepsis: At time of lactate Within 3 hours of recognition: Blood cultures x 2 before broad-spectrum antibiotics: yes 30 ml/kg NS bolus completed Initial lactate 4.8 Repeat lactate not indicated as initial lactate < 2.0 Septic Shock Assessment: Any lactic acid > 4.0 yes Persistent hypotension (SBP < 90 or 40 mmHg drop, MAP < 65) despite 30 mL/kg IV fluid bolusno A focused sepsis perfusion/reperfusion reassessment examination was performed post 30ml/kg bolus @2322: Temp 100, BP 92/42, HR 115, RR 25, Pox 95% Persistent Hypotension Treatment: Comfort care no Hypotension caused by: pt. baseline, med-induced, erroneous value, condition other than infection no Refusal by patient/decision maker for: blood draw, IVF, Antibiotics, Pressorsno Central line mdiport Vasopressor started Norepinehrine I considered further perfusion assessment with CVP measurement, SCVO2, bedside ultrasound volume assessment, passive leg raise, trial of further fluid bolus and proceeded with. Accepting Care Team Current data and ongoing care discussed. Time: Admitting Physician: marcelino Picker/Puller(s): Outstanding Data: none Critical Care Time: 45 minutes Treatments/Evaluations: Close monitoring and treatment of unstable vital signs, cardiorespiratory, and neurologic status, while maintaining tight balance of fluid, respiratory, and cardiac interventions. This includes the administration of emergency fluid management while maintaining close respiratory support as well as the provision of immediate and broad-spectrum antibiotic therapy, while performing a simultaneous assessment for possible sources in order to direct targeted therapy. This time includes discussing the case with the patient and the patient's family. This time also includes the consideration for invasive and chemical support to prevent cardiopulmonary collapse. This time does not include all procedures stated elsewhere in this record. This time also includes reviewing old records, labs and radiological studies. This time includes examining and re-examining the patient. Additionally, this time also includes arranging care with admitting and consulting physicians. Departure Diagnosis: Primary Impression: Sepsis Sepsis type: sepsis due to unspecified organism Qualified Codes: A41.9 - Sepsis, unspecified organism Additional Impression: Pneumonia Pneumonia type: due to unspecified organism Laterality: left Lung location: lower lobe of lung Qualified Codes: J18.1 - Lobar pneumonia, unspecified organism Condition: JAS Alicea DO Feb 20, 2019 19:29
[2019-02-20] MEDS ORDERED: SOD CHLORIDE 0.9% 1,000 ML IV STA ×2 (20:03→21:35)
[2019-02-20] MEDS ORDERED: IBUPROFEN 800 MG TAB PO ONE (20:30)
[2019-02-20] MEDS ORDERED: NORepinephrine 8MG/250 ML (PMX 250 ML IV STA (23:03)
[2019-02-20] MEDS ORDERED: SOD CHLORIDE 0.9% 1,000 ML IV SCH (23:19)
[2019-02-20] MEDS ORDERED: ONDANSETRON 4 MG INJ IV PRN (23:30)
[2019-02-20] MEDS ORDERED: ACETAMINOPHEN 325 MG TAB PO PRN (23:30)
[2019-02-21] VITALS (68 sets, daily range): BP systolic 71–115; BP diastolic 31–87; PULSE 70–96; RESP 0–38; Ht 165.1 cm; Wt 89.2 kg
[2019-02-21] MEDS: SOD CHLORIDE 0.9% 1,000 ML IV SCH ×4 (01:04→19:23)
[2019-02-21] MEDS ORDERED: hydrALAzine 20 MG INJ IV PRN (01:30)
[2019-02-21] MEDS ORDERED: ALBUTEROL/IPRATROPIUM (NEB) 3 ML AMP HHN PRN (01:30)
[2019-02-21] MEDS ORDERED: NACL 0.9% 3 ML SYG IV SCH (01:30)
[2019-02-21] MEDS ORDERED: DOCUSATE SODIUM 100 MG CAP PO PRN (01:30)
[2019-02-21] MEDS ORDERED: NITROGLYCERIN (SL) 0.4 MG TAB SL PRN (01:30)
[2019-02-21] MEDS ORDERED: MAGNESIUM HYDROXIDE 30ML CUP PO PRN (01:30)
[2019-02-21] MEDS ORDERED: LORAZEPAM 2 MG INJ IV PRN (01:30)
[2019-02-21] MEDS ORDERED: VANCOMYCIN IV PER PHARMACY XX SCH (01:30)
[2019-02-21] MEDS: MEROPENEM 1 GM/50ML(PMX) 50 ML IVPB SCH ×3 (03:14→17:34)
--- NOTE | 2019-02-21 03:52 | HP ---
Date/Time of Note Date/Time of Note DATE: 02/21/19 TIME: 03:42 Assessment/Plan VTE Prophylaxis SCD applied (from Nsg): No SCD contraindicated: other Pharmacological prophylaxis: heparin Lines/Catheters IV Catheter Type (from Nrs): port -A -CAth Assessment/Plan Hospital Course Assessment and plan: 53-year-old male past medical history of ESBL E. coli and Citrobacter bacteremia diagnosed last month, GI bleed, hemorrhoid surgery recently, iron deficiency anemia who comes in with chest pain and shortness of breath, with signs of septic shock and on pressor support, history of bacteremia last month. 1. Septic shock: Again he came in with fevers and tachycardia, he is on levo fed presently. Again last month he was treated for ESBL E. coli and Citrobacter bacteremia, and this could be the possible source? He also had a recent hemorrhoid surgery a week ago. -Continue broad-spectrum antibiotics based on the sensitivities of his last known positive blood culture results, check TSH, A1c, lipid panel -Continue pressor support wean off as tolerated, will obtain ID consult, follow-up culture results and Tylenol PRN pain and fevers, IV fluids -Continue to trend lactic acid 2. Chest pain shortness of breath: Continue monitor for now, duo nebs as needed 3. History of anemia and GI bleed: Hemoglobin is presently stable 12.5 -Monitor for now, follow-up CBC in the morning Result Diagram: 02/20/19 1734 02/20/19 1734 Results 24hrs Laboratory Tests Test 02/20/19 17:34 02/20/19 17:39 02/20/19 19:29 02/20/19 21:16 White Blood Count 1.5 #L Red Blood Count 5.20 # Hemoglobin 12.5 #L Hematocrit 42.5 # Mean Corpuscular Volume 81.7 L Mean Corpuscular 24.0 L Hemoglobin Mean Corpuscular 29.4 L Hemoglobin Concent Red Cell Distribution 19.9 H Width Platelet Count 278 Mean Platelet Volume 11.1 H Immature Granulocytes % 0.700 H Neutrophils % Segmented Neutrophils 90 H % (Manual) Band Neutrophils % 2 (Manual) Lymphocytes % Lymphocytes % (Manual) 8 L Monocytes % Eosinophils % Basophils % Nucleated Red Blood 0.0 Cells % Immature Granulocytes # 0.010 Neutrophils # Neutrophils # (Manual) 1.4 L Band Neutrophils # 0.0 Lymphocytes (Manual) 0.1 L Lymphocytes # Monocytes # Eosinophils # Basophils # Nucleated Red Blood Cells # Platelet Estimate NORMAL Giant Platelets 14 H Polychromasia 1+ Poikilocytosis 3+ Anisocytosis 1+ Microcytosis 1+ Tear Drop Cells 1+ Ovalocytes 2+ Prothrombin Time 15.0 H Prothrombin Time Ratio 1.2 INR International 1.17 Normalized Ratio Activated 23.5 Partial Thromboplast Time Sodium Level 139 Potassium Level 3.3 L Chloride Level 104 Carbon Dioxide Level 22 Anion Gap 13 Blood Urea Nitrogen 15 Creatinine 1.22 Est Glomerular Filtrat > 60 Rate mL/min Glucose Level 111 Calcium Level 9.2 Total Bilirubin 0.8 Direct Bilirubin 0.00 Indirect Bilirubin 0.8 Aspartate Amino 133 H Transf (AST/SGOT) Alanine 92 H Aminotransferase (ALT/SG PT) Alkaline Phosphatase 281 H Troponin I < 0.012 Total Protein 6.8 Albumin 3.5 Globulin 3.30 H Albumin/Globulin Ratio 1.06 POC Venous Lactate 4.8 *H Lactic Acid Level 3.4 *H 2.6 *H HPI/ROS Admit Date/Time Admit Date/Time Feb 20, 2019 at 23:21 Hx of Present Illness 53-year-old male past medical history of ESBL E. coli and Citrobacter bacteremia diagnosed last month, GI bleed, hemorrhoid surgery recently, iron deficiency anemia who comes in with chest pain or shortness of breath symptoms. Symptoms have been going on for the last 3 days. Patient also complained of some fevers and chills at home for the last couple of days. He had, according to the ER Dr. Orellana, a hemorrhoid surgery a week ago. Apparently he called his doctor about his concerns, and the doctor told him to come to the ER because he may have bacteria in his blood. When he came in today he was found with a temperature of 104.6, his blood pressure was low and need to be started on pressor support his lactic acid was also elevated at 4.6 on admission. He was also tachycardic in the 140 range. Patient was last here to the hospital last month from January 25 to February 03, 2019 at that time he was treated for GI bleeding and anemia, also was treated for the ESBL E. coli and Citrobacter bacteremia at that time. PMH/Family/Social Past Medical History Medications Current Medications Norepinephrine 250 ml @ 7.5 mls/hr ONCE STAT IV Last administered on 02/20/19at 23:41; Admin Dose 3.75 MLS/HR; Start 02/20/19 at 23:03; Stop 02/22/19 at 08:22 Sodium Chloride 1,000 ml @ 80 mls/hr [id number] IV Last administered on 02/20/19at 23:40; Admin Dose 80 MLS/HR; Start 02/20/19 at 23:19; Stop 02/21/19 at 11:48 Ondansetron HCl (Zofran Inj) 4 mg BRIDGE ORDER PRN IV NAUSEA/VOMITING; Start 02/20/19 at 23:30; Stop 02/21/19 at 23:29 Acetaminophen (Tylenol Tab) 650 mg ER BRIDGE PRN PO .MILD PAIN 1-3 OR TEMP; Start 02/20/19 at 23:30; Stop 02/21/19 at 23:29 IV Flush (NS 3 ml) 3 ml PER PROTOCOL IV ; Start 02/21/19 at 01:30 Ondansetron HCl (Zofran Inj) 4 mg Q6H PRN IV NAUSEA/VOMITING; Start 02/21/19 at 01:30 Acetaminophen (Tylenol Tab) 650 mg Q6H PRN PO .PAIN 1-3 OR TEMP; Start 02/21/19 at 01:30 Acetaminophen/ Hydrocodone Bitart ([place] (5/325)) 1 tab Q6H PRN PO .MOD PAIN 4- 6; Start 02/21/19 at 01:30 Morphine Sulfate (morphine) 2 mg Q4H PRN IV .SEVERE PAIN 7-10; Start 02/21/19 at 01:30 Docusate Sodium (Colace) 100 mg Q12H PRN PO .CONSTIPATION; Start 02/21/19 at 01:30 Magnesium Hydroxide (Milk Of Mag) 30 ml DAILY PRN PO .CONSTIPATION; Start 02/21/19 at 01:30 Pantoprazole (Protonix Iv) 40 mg DAILY@06 IV ; Start 02/21/19 at 06:00 Heparin Sodium (Porcine) (Heparin (5000 Units/1ml)) 5,000 unit Q12 SC ; Start 02/21/19 at 09:00 Lorazepam (Ativan) 0.5 mg Q6H PRN IV ANXIETY; Start 02/21/19 at 01:30 Sodium Chloride 1,000 ml @ 100 mls/hr Q10H IV ; Start 02/21/19 at 01:04 Albuterol/ Ipratropium (Duoneb) 3 ml Q4H RESP THERAPY PRN HHN SHORTNESS OF BREATH; Start 02/21/19 at 01:30 Vancomycin HCl (Vanco Iv Per Pharmacy) VANCOMYCIN PER PHARMACY NOTE XX ; Start 02/21/19 at 01:30 Hydralazine HCl (Apresoline) 10 mg Q6H PRN IV ELEVATED BLOOD PRESSURE; Start 02/21/19 at 01:30 Nitroglycerin (Nitroglycerin (Sl Tab) 0.4 Mg) 1 tab Q5M PRN SL ANGINA; Start 02/21/19 at 01:30 Norepinephrine 250 ml @ 1.875 mls/ hr PER PROTOCOL IV ; Start 02/21/19 at 01:30 Ferrous Sulfate (Ferrous Sulfate (Ec)) 325 mg DAILY PO ; Start 02/21/19 at 09:00 Meropenem/Sodium Chloride 50 ml @ 100 mls/hr Q8H IVPB Last administered on 02/21/19at 03:14; Admin Dose 100 MLS/HR; Start 02/21/19 at 01:30 Vancomycin HCl 1.25 gm/Sodium Chloride 250 ml @ 83.333 mls/ hr Q12H IVPB ; Start 02/21/19 at 04:00 Coded Allergies: No Known Allergy (Unverified , 01/04/19) Past Surgical History Past Surgical Hx: no surgical history, other (Hemorrhoid, right shoulder, knee) Family History Significant Family History: no pertinent family hx Social History Alcohol Use: none Smoking Status: Never smoker Drug Use: none Exam/Review of Systems Vital Signs Vitals Vital Signs Date Temp Pulse Resp B/P (MAP) Pulse Ox O2 O2 Flow FiO2 Time Delivery Rate 02/21/19 98.1 97 25 90/57 (68) 96 Nasal 2.0 02:08 Cannula Intake and Output 02/20/19 02/20/19 02/21/19 1414:59 22:59 06:59 IntakeIntake Total 3550 ml 1368.75 ml BalanceBalance 3550 ml 1368.75 ml Exam Exam Gen: Lying in bed, presently sleeping Head: Atraumatic. Eyes: Normal Conjunctiva. ENT: Normal External Ears, Nose and Mouth. Neck: Full range of motion. No meningismus. Resp: Clear to auscultation bilaterally. Cardio: Regular rate and rhythm. Abd: Soft, nondistended, normal bowel sounds, non tender. Ext: No lower extremity edema bilaterally Neuro: No focal deficits ALYCE DECKER Feb 21, 2019 03:52
[2019-02-21] MEDS ORDERED: VANCOMYCIN HCL 1.25 GM in SOD CHLORIDE 0.9% 250 ML IVPB SCH (04:00)
[2019-02-21] MEDS: PANTOPRAZOLE 40 MG INJ IV SCH (05:14)
[2019-02-21] MEDS: FERROUS SULFATE (EC) 325 MG TAB PO SCH (09:12)
[2019-02-21] MEDS: HEPARIN 5,000 UNIT/1 ML VIAL SC SCH ×2 (09:14→20:52)
--- NOTE | 2019-02-21 10:22 | CONS ---
DATE OF ADMISSION: 02/20/2019 DATE OF CONSULTATION: 02/21/2019 TYPE OF CONSULTATION: Infectious Disease. REASON FOR CONSULTATION: Antibiotic management. Anshul Fregoso is a 53-year-old male who was discharged from this hospital a week ago after h emorrhoid surgery. Over the last few days he has been having fever and chills. He called his doctor and the doctor told to come to the emergency room. He says the postoperative healing is somewhat so re, but he has no blood in his stool. PAST MEDICAL HISTORY: He has right shoulder surgery and knee surgery and hemorrhoidectomy. Otherwis e, past medical history is positive for anemia. HABITS: He does not smoke, drink or abuse drugs. ALLERGIES: NONE TO PENICILLIN, SULFA OR FOODS. MEDICATIONS: Per chart. REVIEW OF SYSTEMS: Noncontributory. PHYSICAL EXAMINATION: GENERAL: The patient is a well-developed, well-nourished male. VITAL SIGNS: Temperature up to 104.6. SKIN: Without generalized rash. HEENT: Within normal limits. NECK: Supple. LYMPH NODES: None palpable. CHEST: Decreased breath sounds at the bases. HEART: Without murmur or gallop. ABDOMEN: Soft, nontender, without organosplenomegaly or masses. EXTREMITIES: Without cyanosis, clubbing, or edema. RECTAL AND GENITAL: Exams deferred. NEUROLOGIC: No focal neurological abnormality. He has a right chest MediPort. HOSPITAL COURSE: On admission, his white count was 1.5, H and H of 12.5 and 42.5, platelet count 278 ,000. BUN and creatinine 15/1.22, glucose of 111. Patient has 90% polys, 2% bands, was started on v ancomycin and cefepime. CT scan of the abdomen and pelvis shows bibasilar airspace disease with atel ectasis, multiple low attenuation splenic lesions which are new compared to prior examination, may be infectious or inflammatory in etiology such as abscesses. Less likely etiology includes splenic inf arcts. Findings may represent enterocolitis, as described above, bibasilar air space disease, which may represent atelectasis. Chest x-ray shows findings suggestive left lower lobe pneumonia, new sinc e the prior study. Interval placement of a right IJ Port-A-Cath with the tip in the region of the ca voatrial junction upper right atrium. The patient was seen by Dr. Rahi, remote septic shock with fev er and tachycardia. The patient is on Levophed. Dr. Decker noted that the patient had ESBL E.coli and Citrobacter bacteremia diagnosed last month and a GI bleed, hemorrhoid surgery, iron deficiency anem ia, comes in with chest pain and shortness of breath, signs of septic shock on pressor support, histo ry of bacteremia last month. The patient is on Levophed. E. coli ESBL and Citrobacter bacteremia ma y be the source. He also had recent hemorrhoid surgery a week ago. The patient was placed on vancom ycin and meropenem to which I concur and is on norepinephrine for pressor support. I will dictate my findings to the hospitalist. Dictated By: GRISELDA SANTIZO MD, JD/TARYN Conf#: [id number] DID#: [id number] CC: ALYCE DECKER;*EndCC*
--- NOTE | 2019-02-21 12:38 | PN ---
Date/Time of Note Date/Time of Note DATE: 02/21/19 TIME: 12:32 Assessment/Plan VTE Prophylaxis Pharmacological prophylaxis: heparin Lines/Catheters IV Catheter Type (from Nrs): Froylan Cath Assessment/Plan Hospital Course Assessment and plan: 53-year-old male past medical history of ESBL E. coli and Citrobacter bacteremia diagnosed last month, GI bleed, hemorrhoid surgery recently, iron deficiency anemia who comes in with chest pain and shortness of breath, with signs of septic shock and on pressor support, history of bacteremia last month. 1. Septic shock secondary to pneumonia and/or enterocolitis CT abdomen shows splenic lesions which are new and may be infectious/inflammatory in etiology such as abscess, enterocolitis also noted Chest x-ray with evidence of left lower lobe pneumonia Patient with recent hospitalization for hemorrhoids status post surgery and subsequent bacteremia with positive blood cultures for ESBL E. coli and Citrob acter status post treatment Continue meropenem and vancomycin ID consultation appreciated Continue pressor support as needed Follow-up on repeat cultures, blood culture currently positive for gram-negative ness IV fluids Monitor lactic acid 2. Chest pain with shortness of breath likely secondary pneumonia Troponins are negative x 2 Antibiotics 3. History of anemia and GI bleed secondary to hemorrhoids status post surgery Hemoglobin stable Prophylaxis: Heparin DC planning: Continue IV antibiotics, follow-up on cultures Result Diagram: 02/20/19 1734 02/20/19 1734 Results 24hrs Laboratory Tests Test 02/20/19 17:34 02/20/19 17:39 02/20/19 19:29 02/20/19 21:16 White Blood Count 1.5 #L Red Blood Count 5.20 # Hemoglobin 12.5 #L Hematocrit 42.5 # Mean Corpuscular Volume 81.7 L Mean Corpuscular 24.0 L Hemoglobin Mean Corpuscular 29.4 L Hemoglobin Concent Red Cell Distribution 19.9 H Width Platelet Count 278 Mean Platelet Volume 11.1 H Immature Granulocytes % 0.700 H Neutrophils % Segmented Neutrophils 90 H % (Manual) Band Neutrophils % 2 (Manual) Lymphocytes % Lymphocytes % (Manual) 8 L Monocytes % Eosinophils % Basophils % Nucleated Red Blood 0.0 Cells % Immature Granulocytes # 0.010 Neutrophils # Neutrophils # (Manual) 1.4 L Band Neutrophils # 0.0 Lymphocytes (Manual) 0.1 L Lymphocytes # Monocytes # Eosinophils # Basophils # Nucleated Red Blood Cells # Platelet Estimate NORMAL Giant Platelets 14 H Polychromasia 1+ Poikilocytosis 3+ Anisocytosis 1+ Microcytosis 1+ Tear Drop Cells 1+ Ovalocytes 2+ Prothrombin Time 15.0 H Prothrombin Time Ratio 1.2 INR International 1.17 Normalized Ratio Activated 23.5 Partial Thromboplast Time Sodium Level 139 Potassium Level 3.3 L Chloride Level 104 Carbon Dioxide Level 22 Anion Gap 13 Blood Urea Nitrogen 15 Creatinine 1.22 Est Glomerular Filtrat > 60 Rate mL/min Glucose Level 111 Calcium Level 9.2 Total Bilirubin 0.8 Direct Bilirubin 0.00 Indirect Bilirubin 0.8 Aspartate Amino 133 H Transf (AST/SGOT) Alanine 92 H Aminotransferase (ALT/SG PT) Alkaline Phosphatase 281 H Troponin I < 0.012 Total Protein 6.8 Albumin 3.5 Globulin 3.30 H Albumin/Globulin Ratio 1.06 POC Venous Lactate 4.8 *H Lactic Acid Level 3.4 *H 2.6 *H Test 02/21/19 04:53 02/21/19 09:03 Hemoglobin A1c 5.1 Lactic Acid Level 4.1 *H 3.0 *H Total Bilirubin 0.8 Direct Bilirubin 0.00 Indirect Bilirubin 0.8 Aspartate Amino 78 H Transf (AST/SGOT) Alanine 99 H Aminotransferase (ALT/SG PT) Alkaline Phosphatase 208 H Troponin I 0.018 Total Protein 5.4 #L Albumin 2.6 L Free Thyroxine 1.11 Subjective 24 Hr Interval Summary Constitutional: no complaints Exam/Review of Systems Exam Vitals Vital Signs Date Temp Pulse Resp B/P (MAP) Pulse Ox O2 O2 Flow FiO2 Time Delivery Rate 02/21/19 97.7 77 22 106/68 100 Nasal 12:00 (81) Cannula 02/21/19 2.0 04:00 Intake and Output 02/20/19 02/20/19 02/21/19 1515:00 23:00 07:00 IntakeIntake Total 4800 ml 641.60 ml BalanceBalance 4800 ml 641.60 ml Constitutional: alert, oriented Respiratory: clear to auscultation Cardiovascular: regular rate and rhythm Gastrointestinal: soft; No distended Musculoskeletal: nl extremities to inspection Results Results 24hrs Laboratory Tests Test 02/20/19 17:34 02/20/19 17:39 02/20/19 19:29 02/20/19 21:16 White Blood Count 1.5 #L Red Blood Count 5.20 # Hemoglobin 12.5 #L Hematocrit 42.5 # Mean Corpuscular Volume 81.7 L Mean Corpuscular 24.0 L Hemoglobin Mean Corpuscular 29.4 L Hemoglobin Concent Red Cell Distribution 19.9 H Width Platelet Count 278 Mean Platelet Volume 11.1 H Immature Granulocytes % 0.700 H Neutrophils % Segmented Neutrophils 90 H % (Manual) Band Neutrophils % 2 (Manual) Lymphocytes % Lymphocytes % (Manual) 8 L Monocytes % Eosinophils % Basophils % Nucleated Red Blood 0.0 Cells % Immature Granulocytes # 0.010 Neutrophils # Neutrophils # (Manual) 1.4 L Band Neutrophils # 0.0 Lymphocytes (Manual) 0.1 L Lymphocytes # Monocytes # Eosinophils # Basophils # Nucleated Red Blood Cells # Platelet Estimate NORMAL Giant Platelets 14 H Polychromasia 1+ Poikilocytosis 3+ Anisocytosis 1+ Microcytosis 1+ Tear Drop Cells 1+ Ovalocytes 2+ Prothrombin Time 15.0 H Prothrombin Time Ratio 1.2 INR International 1.17 Normalized Ratio Activated 23.5 Partial Thromboplast Time Sodium Level 139 Potassium Level 3.3 L Chloride Level 104 Carbon Dioxide Level 22 Anion Gap 13 Blood Urea Nitrogen 15 Creatinine 1.22 Est Glomerular Filtrat > 60 Rate mL/min Glucose Level 111 Calcium Level 9.2 Total Bilirubin 0.8 Direct Bilirubin 0.00 Indirect Bilirubin 0.8 Aspartate Amino 133 H Transf (AST/SGOT) Alanine 92 H Aminotransferase (ALT/SG PT) Alkaline Phosphatase 281 H Troponin I < 0.012 Total Protein 6.8 Albumin 3.5 Globulin 3.30 H Albumin/Globulin Ratio 1.06 POC Venous Lactate 4.8 *H Lactic Acid Level 3.4 *H 2.6 *H Test 02/21/19 04:53 02/21/19 09:03 Hemoglobin A1c 5.1 Lactic Acid Level 4.1 *H 3.0 *H Total Bilirubin 0.8 Direct Bilirubin 0.00 Indirect Bilirubin 0.8 Aspartate Amino 78 H Transf (AST/SGOT) Alanine 99 H Aminotransferase (ALT/SG PT) Alkaline Phosphatase 208 H Troponin I 0.018 Total Protein 5.4 #L Albumin 2.6 L Free Thyroxine 1.11 Medications Medication Current Medications IV Flush (NS 3 ml) 3 ml PER PROTOCOL IV ; Start 02/21/19 at 01:30 Ondansetron HCl (Zofran Inj) 4 mg Q6H PRN IV NAUSEA/VOMITING; Start 02/21/19 at 01:30 Acetaminophen (Tylenol Tab) 650 mg Q6H PRN PO .PAIN 1-3 OR TEMP; Start 02/21/19 at 01:30 Acetaminophen/ Hydrocodone Bitart ([place] (5/325)) 1 tab Q6H PRN PO .MOD PAIN 4- 6; Start 02/21/19 at 01:30 Morphine Sulfate (morphine) 2 mg Q4H PRN IV .SEVERE PAIN 7-10; Start 02/21/19 at 01:30 Docusate Sodium (Colace) 100 mg Q12H PRN PO .CONSTIPATION; Start 02/21/19 at 01:30 Magnesium Hydroxide (Milk Of Mag) 30 ml DAILY PRN PO .CONSTIPATION; Start 02/21/19 at 01:30 Pantoprazole (Protonix Iv) 40 mg DAILY@06 IV Last administered on 02/21/19at 05:14; Admin Dose 40 MG; Start 02/21/19 at 06:00 Heparin Sodium (Porcine) (Heparin (5000 Units/1ml)) 5,000 unit Q12 SC Last administered on 02/21/19at 09:14; Admin Dose 5,000 UNIT; Start 02/21/19 at 09:00 Lorazepam (Ativan) 0.5 mg Q6H PRN IV ANXIETY; Start 02/21/19 at 01:30 Sodium Chloride 1,000 ml @ 100 mls/hr Q10H IV Last administered on 02/21/19at 09:16; Admin Dose 100 MLS/HR; Start 02/21/19 at 01:04 Albuterol/ Ipratropium (Duoneb) 3 ml Q4H RESP THERAPY PRN HHN SHORTNESS OF BREATH; Start 02/21/19 at 01:30 Vancomycin HCl (Vanco Iv Per Pharmacy) VANCOMYCIN PER PHARMACY NOTE XX ; Start 02/21/19 at 01:30 Hydralazine HCl (Apresoline) 10 mg Q6H PRN IV ELEVATED BLOOD PRESSURE; Start 02/21/19 at 01:30 Nitroglycerin (Nitroglycerin (Sl Tab) 0.4 Mg) 1 tab Q5M PRN SL ANGINA; Start 02/21/19 at 01:30 Norepinephrine 250 ml @ 1.875 mls/ hr PER PROTOCOL IV ; Start 02/21/19 at 01:30 Ferrous Sulfate (Ferrous Sulfate (Ec)) 325 mg DAILY PO Last administered on 02/21/19at 09:12; Admin Dose 325 MG; Start 02/21/19 at 09:00 Meropenem/Sodium Chloride 50 ml @ 100 mls/hr Q8H IVPB Last administered on 02/21/19at 09:08; Admin Dose 100 MLS/HR; Start 02/21/19 at 01:30 Vancomycin HCl 250 ml @ 125 mls/hr Q12H IVPB ; Start 02/21/19 at 16:00 Miscellaneous Information (*Rx Drug Level Order Reminder*) VANCO TROUGH @ 1,500 ON... 1500 ONCE XX ; Start 02/22/19 at 15:00; Stop 02/22/19 at 15:01 JOSE R MARIE Feb 21, 2019 12:38
[2019-02-21] MEDS: NORepinephrine 8MG/250 ML (PMX 250 ML IV SCH (13:24)
--- NOTE | 2019-02-21 15:31 | RADRPT ---
Vent Rate: 85 bpm RR Interval: 704 msec [place] Interval: 185 msec QRS Duration: 80 msec QT Interval: 366 msec QTC Interval: 436 msec P-R-T [place]: 42 - 39 - 0 degrees Sinus rhythm...normal P axis, V-rate 50- 99 Electronically Signed By: Jonathan Tang
[2019-02-21] MEDS: VANCOMYCIN 1 GM 250 ML IVPB SCH (16:08)
[2019-02-21] MEDS: ACETAMINOPHEN 325 MG TAB PO PRN (20:56)
[2019-02-22] VITALS (93 sets, daily range): BP systolic 65–134; BP diastolic 46–95; PULSE 54–102; RESP 9–59
[2019-02-22] MEDS: MEROPENEM 1 GM/50ML(PMX) 50 ML IVPB SCH ×3 (01:25→18:18)
[2019-02-22] MEDS: SOD CHLORIDE 0.9% 1,000 ML IV SCH ×3 (03:40→19:55)
[2019-02-22] MEDS: VANCOMYCIN 1 GM 250 ML IVPB SCH (03:42)
[2019-02-22] MEDS: NORepinephrine 8MG/250 ML (PMX 250 ML IV SCH (03:47)
[2019-02-22] MEDS: morphine 2 MG INJ IV PRN ×2 (03:51→23:52)
[2019-02-22] MEDS: PANTOPRAZOLE 40 MG INJ IV SCH (05:56)
[2019-02-22] MEDS: HEPARIN 5,000 UNIT/1 ML VIAL SC SCH ×2 (10:32→20:52)
[2019-02-22] MEDS: FERROUS SULFATE (EC) 325 MG TAB PO SCH (11:06)
--- NOTE | 2019-02-22 11:44 | CONS ---
Assessment/Plan Assessment/Plan Hospital Course (Demo Recall) No acute changes patient is awake looks comfortable denies pain he remains on Levophed drip no fevers overnight WBC 24.4 platelets 141 BUN 13 creatinine 0.90 Indwelling: Right chest Port-A-Cath Microbiology: Blood culture growing gram-negative rods Antimicrobials: Vancomycin meropenem CT abdomen and pelvis on admission revealed multiple low-attenuation splenic lesions which are new compared to prior examination and may be infectious/inflammatory in etiology such as abscesses bibasilar airspace disease which may represent atelectasis Physical examination: This is well-nourished ill-appearing middle-aged man who is in no distress. Head atraumatic normocephalic neck is supple chest rise symmetrical breath sounds diminished to bases heart: S1-S2 abdomen obese soft bowel sounds present extremities with trace edema Assessment: 1. Sepsis with gram-negative ness bacteremia, rule out line sepsis 2. Questionable splenic abscesses 3. Questionable pneumonia 4. Questionable enterocolitis 5. Chronic anemia 6. History of E. coli ESBL and Citrobacter bacteremia on January 31, 2019 7. Status post open hemorrhoidectomy 01/27/19 Plan: Patient remains hemodynamically unstable, we will discontinue vancomycin, continue him on meropenem, repeat blood cultures from Port-A-Cath Consultation Date/Type/Reason Admit Date/Time Feb 20, 2019 at 23:21 Initial Consult Date Type of Consult id Date/Time of Note DATE: 02/22/19 TIME: 11:44 Exam/Review of Systems Exam Vitals Vital Signs Date Temp Pulse Resp B/P (MAP) Pulse Ox O2 O2 Flow FiO2 Time Delivery Rate 02/22/19 87 41 114/73 94 11:15 (87) 02/22/19 Room Air 11:00 02/22/19 98.7 08:55 02/22/19 2.0 06:00 Intake and Output 02/21/19 02/21/19 02/22/19 1515:00 23:00 07:00 IntakeIntake Total 1310.24 ml 1516.980 ml 1481.2175 ml OutputOutput Total 1220 ml 720 ml 980 ml BalanceBalance 90.24 ml 796.980 ml 501.2175 ml Results Result Diagram: 02/22/19 0500 02/22/19 0500 Results 24hrs Laboratory Tests Test 02/21/19 13:13 02/21/19 13:19 02/21/19 17:31 02/21/19 21:44 Troponin I 0.019 Lactic Acid Level 3.5 *H 2.6 *H 1.6 Test 02/22/19 05:00 White Blood Count 24.4 #H Red Blood Count 4.02 #L Hemoglobin 9.8 #L Hematocrit 32.5 #L Mean Corpuscular Volume 80.8 L Mean Corpuscular 24.4 L Hemoglobin Mean Corpuscular 30.2 L Hemoglobin Concent Red Cell Distribution 20.0 H Width Platelet Count 141 # Mean Platelet Volume Immature Granulocytes % 5.100 H Neutrophils % Segmented Neutrophils 67 % (Manual) Band Neutrophils % 26 H (Manual) Lymphocytes % Lymphocytes % (Manual) 3 L Monocytes % Monocytes % (Manual) 2 Eosinophils % Eosinophils % (Manual) 2 Basophils % Nucleated Red Blood 0.0 Cells % Immature Granulocytes # 1.230 H Neutrophils # Neutrophils # (Manual) 17.9 H Band Neutrophils # 6.3 H Lymphocytes (Manual) 0.7 L Lymphocytes # Monocytes # Monocytes # (Manual) 0.4 Eosinophils # Basophils # Nucleated Red Blood Cells # Platelet Estimate NORMAL Polychromasia 2+ Poikilocytosis 3+ Anisocytosis 2+ Microcytosis 1+ Ovalocytes 1+ Elliptocytes 1+ Sodium Level 143 Potassium Level 3.3 L Chloride Level 115 H Carbon Dioxide Level 22 Anion Gap 6 Blood Urea Nitrogen 13 Creatinine 0.90 Est Glomerular Filtrat > 60 Rate mL/min Glucose Level 116 Hemoglobin A1c 5.3 Lactic Acid Level 1.3 Calcium Level 7.8 L Phosphorus Level 2.4 L Magnesium Level 1.8 Troponin I 0.018 Triglycerides Level 136 Cholesterol Level 88 L LDL Cholesterol, 44 Calculated HDL Cholesterol 17 L Cholesterol/HDL Ratio 5.1 Thyroid Stimulating 3.510 Hormone (TSH) Medications Medication Current Medications IV Flush (NS 3 ml) 3 ml PER PROTOCOL IV ; Start 02/21/19 at 01:30 Ondansetron HCl (Zofran Inj) 4 mg Q6H PRN IV NAUSEA/VOMITING; Start 02/21/19 at 01:30 Acetaminophen (Tylenol Tab) 650 mg Q6H PRN PO .PAIN 1-3 OR TEMP Last administered on 02/21/19at 20:56; Admin Dose 650 MG; Start 02/21/19 at 01:30 Acetaminophen/ Hydrocodone Bitart ([place] (5/325)) 1 tab Q6H PRN PO .MOD PAIN 4- 6; Start 02/21/19 at 01:30 Morphine Sulfate (morphine) 2 mg Q4H PRN IV .SEVERE PAIN 7-10 Last administered on 02/22/19at 03:51; Admin Dose 2 MG; Start 02/21/19 at 01:30 Docusate Sodium (Colace) 100 mg Q12H PRN PO .CONSTIPATION; Start 02/21/19 at 01:30 Magnesium Hydroxide (Milk Of Mag) 30 ml DAILY PRN PO .CONSTIPATION; Start 02/21/19 at 01:30 Pantoprazole (Protonix Iv) 40 mg DAILY@06 IV Last administered on 02/22/19at 05:56; Admin Dose 40 MG; Start 02/21/19 at 06:00 Heparin Sodium (Porcine) (Heparin (5000 Units/1ml)) 5,000 unit Q12 SC Last administered on 02/22/19at 10:32; Admin Dose 5,000 UNIT; Start 02/21/19 at 09:00 Lorazepam (Ativan) 0.5 mg Q6H PRN IV ANXIETY; Start 02/21/19 at 01:30 Albuterol/ Ipratropium (Duoneb) 3 ml Q4H RESP THERAPY PRN HHN SHORTNESS OF BREATH; Start 02/21/19 at 01:30 Vancomycin HCl (Vanco Iv Per Pharmacy) VANCOMYCIN PER PHARMACY NOTE XX ; Start 02/21/19 at 01:30 Hydralazine HCl (Apresoline) 10 mg Q6H PRN IV ELEVATED BLOOD PRESSURE; Start 02/21/19 at 01:30 Nitroglycerin (Nitroglycerin (Sl Tab) 0.4 Mg) 1 tab Q5M PRN SL ANGINA; Start 02/21/19 at 01:30 Norepinephrine 250 ml @ 1.875 mls/ hr PER PROTOCOL IV Last administered on 02/22/19at 03:47; Admin Dose 16.875 MLS/HR; Start 02/21/19 at 01:30 Ferrous Sulfate (Ferrous Sulfate (Ec)) 325 mg DAILY PO Last administered on 02/22/19at 11:06; Admin Dose 325 MG; Start 02/21/19 at 09:00 Meropenem/Sodium Chloride 50 ml @ 100 mls/hr Q8H IVPB Last administered on 02/22/19at 10:32; Admin Dose 100 MLS/HR; Start 02/21/19 at 01:30 Vancomycin HCl 250 ml @ 125 mls/hr Q12H IVPB Last administered on 02/22/19at 03:42; Admin Dose 125 MLS/HR; Start 02/21/19 at 16:00 Miscellaneous Information (*Rx Drug Level Order Reminder*) VANCO TROUGH @ 1,500 ON... 1500 ONCE XX ; Start 02/22/19 at 15:00; Stop 02/22/19 at 15:01 Sodium Chloride 1,000 ml @ 125 mls/hr Q8H IV Last administered on 02/22/19at 03:40; Admin Dose 125 MLS/HR; Start 02/21/19 at 16:00 JAYRO SANTIAGO NP Feb 22, 2019 11:44
[2019-02-22] MEDS: HYDROCODONE/APAP (5/325) TAB PO PRN ×2 (12:53→19:10)
[2019-02-22] MEDS ORDERED: POTASSIUM CHLORIDE 20 MEQ POWDER FOR ORAL SOLN PO ONE (13:30)
--- NOTE | 2019-02-22 13:50 | PN ---
Date/Time of Note Date/Time of Note DATE: 02/22/19 TIME: 13:34 Assessment/Plan VTE Prophylaxis Risk score (from Ns)>0 risk: 9 SCD applied (from Ns): Yes Pharmacological prophylaxis: heparin Lines/Catheters IV Catheter Type (from [facility] PORT-A-CATH Central line still needed: Yes Urinary Cath still in place: No Assessment/Plan Assessment/Plan 53-year-old man with history of chronic rectal bleed s/p hemorrhoidectomy on 01/28 who developed postoperative bacteremia now returns with sepsis, found to have mysterious splenic abscesses or infarcts. #Septic shock - blood cultures on admission 02/20 growing gram negative rods. - After patient had rectal surgery on 01/28 he suddenly had bacteremia on 01/31. Possible this was a postoperative surgical infection? Looks like it was never worked up. - After bacteremia on 01/31 patient was discharged on FOUR DAYS of oral ciprofloxacin, which was likely insufficient duration. - So this current bacteremia may be the same infection as May. - Same ID team is following again, continue IV meropenem. - Currently requiring IV pressors also #Splenic abscesses vs infarcts. - This may be a sequelae of prolonged bacteremia after hemorrhoid surgery. - Possible embolic source? May need echo to further work up. #Chronic rectal bleed - S/p hemorrhoidectomy on 01/28 - Hgb stable since discharge with minimal rectal bleeding - Check iron panel, continue to follow Hgb. Prophylaxis: Heparin Result Diagram: 02/22/19 0500 02/22/19 0500 Subjective 24 Hr Interval Summary Free Text/Dictation Patient continues to have dry cough and L flank pain. Since hospital discharge, he continues to have slight spotting on the toilet paper when he wipes but no large GI bleed. Still requiring low dose norepinephrine. Exam/Review of Systems Exam Vitals Vital Signs Date Temp Pulse Resp B/P (MAP) Pulse Ox O2 O2 Flow FiO2 Time Delivery Rate 02/22/19 99.5 86 40 112/69 94 Room Air 12:00 (83) 02/22/19 2.0 06:00 Intake and Output 02/21/19 02/21/19 02/22/19 1515:00 23:00 07:00 IntakeIntake Total 1310.24 ml 1516.980 ml 1481.2175 ml OutputOutput Total 1220 ml 720 ml 980 ml BalanceBalance 90.24 ml 796.980 ml 501.2175 ml Exam Gen: Obese man in some discomfort supine in bed. Eyes: Normal Conjunctiva, anicteric ENT: Moist mucous membranes, clear oropharynx. Neck: Full range of motion. No meningismus. No lymphadenopathy. Resp: Clear to auscultation bilaterally. Cardio: Regular rate and rhythm. Abd: L flank tenderness to palpation. Soft, nondistended, normal bowel sounds, non tender. Ext: No lower extremity edema bilaterally Results Results 24hrs Laboratory Tests Test 02/21/19 17:31 02/21/19 21:44 02/22/19 05:00 Lactic Acid Level 2.6 *H 1.6 1.3 White Blood Count 24.4 #H Red Blood Count 4.02 #L Hemoglobin 9.8 #L Hematocrit 32.5 #L Mean Corpuscular Volume 80.8 L Mean Corpuscular Hemoglobin 24.4 L Mean Corpuscular Hemoglobin Concent 30.2 L Red Cell Distribution Width 20.0 H Platelet Count 141 # Mean Platelet Volume Immature Granulocytes % 5.100 H Neutrophils % Segmented Neutrophils % (Manual) 67 Band Neutrophils % (Manual) 26 H Lymphocytes % Lymphocytes % (Manual) 3 L Monocytes % Monocytes % (Manual) 2 Eosinophils % Eosinophils % (Manual) 2 Basophils % Nucleated Red Blood Cells % 0.0 Immature Granulocytes # 1.230 H Neutrophils # Neutrophils # (Manual) 17.9 H Band Neutrophils # 6.3 H Lymphocytes (Manual) 0.7 L Lymphocytes # Monocytes # Monocytes # (Manual) 0.4 Eosinophils # Basophils # Nucleated Red Blood Cells # Platelet Estimate NORMAL Polychromasia 2+ Poikilocytosis 3+ Anisocytosis 2+ Microcytosis 1+ Ovalocytes 1+ Elliptocytes 1+ Sodium Level 143 Potassium Level 3.3 L Chloride Level 115 H Carbon Dioxide Level 22 Anion Gap 6 Blood Urea Nitrogen 13 Creatinine 0.90 Est Glomerular Filtrat Rate mL/min > 60 Glucose Level 116 Hemoglobin A1c 5.3 Calcium Level 7.8 L Phosphorus Level 2.4 L Magnesium Level 1.8 Troponin I 0.018 Triglycerides Level 136 Cholesterol Level 88 L LDL Cholesterol, Calculated 44 HDL Cholesterol 17 L Cholesterol/HDL Ratio 5.1 Thyroid Stimulating Hormone (TSH) 3.510 Medications Medication Current Medications IV Flush (NS 3 ml) 3 ml PER PROTOCOL IV ; Start 02/21/19 at 01:30 Ondansetron HCl (Zofran Inj) 4 mg Q6H PRN IV NAUSEA/VOMITING; Start 02/21/19 at 01:30 Acetaminophen (Tylenol Tab) 650 mg Q6H PRN PO .PAIN 1-3 OR TEMP Last administered on 02/21/19 20:56; Admin Dose 650 MG; Start 02/21/19 at 01:30 Acetaminophen/ Hydrocodone Bitart ([place] (5/325)) 1 tab Q6H PRN PO .MOD PAIN 4- 6 Last administered on 02/22/19 12:53; Admin Dose 1 TAB; Start 02/21/19 at 01:30 Morphine Sulfate (morphine) 2 mg Q4H PRN IV .SEVERE PAIN 7-10 Last administered on 02/22/19 03:51; Admin Dose 2 MG; Start 02/21/19 at 01:30 Docusate Sodium (Colace) 100 mg Q12H PRN PO .CONSTIPATION; Start 02/21/19 at 01:30 Magnesium Hydroxide (Milk Of Mag) 30 ml DAILY PRN PO .CONSTIPATION; Start 02/21/19 at 01:30 Pantoprazole (Protonix Iv) 40 mg DAILY@06 IV Last administered on 02/22/19 05:56; Admin Dose 40 MG; Start 02/21/19 at 06:00 Heparin Sodium (Porcine) (Heparin (5000 Units/1ml)) 5,000 unit Q12 SC Last administered on 02/22/19 10:32; Admin Dose 5,000 UNIT; Start 02/21/19 at 09:00 Lorazepam (Ativan) 0.5 mg Q6H PRN IV ANXIETY; Start 02/21/19 at 01:30 Albuterol/ Ipratropium (Duoneb) 3 ml Q4H RESP THERAPY PRN HHN SHORTNESS OF BREATH; Start 02/21/19 at 01:30 Hydralazine HCl (Apresoline) 10 mg Q6H PRN IV ELEVATED BLOOD PRESSURE; Start 02/21/19 at 01:30 Nitroglycerin (Nitroglycerin (Sl Tab) 0.4 Mg) 1 tab Q5M PRN SL ANGINA; Start 02/21/19 at 01:30 Norepinephrine 250 ml @ 1.875 mls/ hr PER PROTOCOL IV Last administered on 6/10/19at 03:47; Admin Dose 16.875 MLS/HR; Start 02/21/19 at 01:30 Ferrous Sulfate (Ferrous Sulfate (Ec)) 325 mg DAILY PO Last administered on 02/22/19at 11:06; Admin Dose 325 MG; Start 02/21/19 at 09:00 Meropenem/Sodium Chloride 50 ml @ 100 mls/hr Q8H IVPB Last administered on 02/22/19at 10:32; Admin Dose 100 MLS/HR; Start 02/21/19 at 01:30 Sodium Chloride 1,000 ml @ 125 mls/hr Q8H IV Last administered on 02/22/19at 12:06; Admin Dose 125 MLS/HR; Start 02/21/19 at 16:00 MADDIE HOYOS MD Feb 22, 2019 13:44
[2019-02-22] MEDS: GUAIFENESIN 20 MG/ML 5ML CUP PO PRN ×2 (14:42→19:02)
[2019-02-23] VITALS (34 sets, daily range): BP systolic 91–125; BP diastolic 52–83; PULSE 69–89; RESP 12–49
[2019-02-23] MEDS: MEROPENEM 1 GM/50ML(PMX) 50 ML IVPB SCH ×3 (01:27→18:46)
[2019-02-23] MEDS: HYDROCODONE/APAP (5/325) TAB PO PRN ×3 (03:04→14:52)
[2019-02-23] MEDS: SOD CHLORIDE 0.9% 1,000 ML IV SCH (03:28)
[2019-02-23] MEDS: PANTOPRAZOLE 40 MG INJ IV SCH (05:11)
[2019-02-23] MEDS: FERROUS SULFATE (EC) 325 MG TAB PO SCH (08:40)
[2019-02-23] MEDS: HEPARIN 5,000 UNIT/1 ML VIAL SC SCH ×2 (08:41→20:57)
--- NOTE | 2019-02-23 11:48 | PN ---
Date/Time of Note Date/Time of Note DATE: 02/23/19 TIME: 11:46 Assessment/Plan VTE Prophylaxis Risk score (from Ns)>0 risk: 7 SCD applied (from [facility] [place] No SCD contraindicated: other (no) Pharmacological prophylaxis: heparin Lines/Catheters IV [facility] (from [facility]): portacath Urinary Cath still in place: No Assessment/Plan Assessment/Plan 53-year-old man with history of chronic rectal bleed s/p hemorrhoidectomy on 01/28 who developed postoperative bacteremia now returns with sepsis, found to have mysterious splenic abscesses or infarcts. #Septic shock - blood cultures on admission 02/20 growing gram negative rods. - After patient had rectal surgery on 01/28 he suddenly had bacteremia on 01/31. Possible this was a postoperative surgical infection? Looks like it was never worked up. - After bacteremia on 01/31 patient was discharged on four days of oral c iprofloxacin, which was likely insufficient duration. - So this current bacteremia may be the same infection as May. - Same ID team is following again, continue IV meropenem. - Currently requiring IV pressors also #Splenic abscesses vs infarcts. - This may be a sequelae of prolonged bacteremia after hemorrhoid surgery. - Possible embolic source. - TTE ordered. May need KALEY before discharge to rule out vegetations. #Chronic rectal bleed - S/p hemorrhoidectomy on 01/28 - Hgb stable since discharge with minimal rectal bleeding - Iron replete. - Continue to follow Hgb. Prophylaxis: Heparin Result Diagram: 02/23/19 0400 02/23/19 0400 Subjective 24 Hr Interval Summary Free Text/Dictation Still with L flank pain worsened by dry cough. Poor appetite. Breathing comfortably on room air. Off pressors since 7 pm last night. Exam/Review of Systems Exam Vitals Vital Signs Date Temp Pulse Resp B/P (MAP) Pulse Ox O2 O2 Flow FiO2 Time Delivery Rate 02/23/19 75 19 121/74 90 09:30 (90) 02/23/19 Nasal 2.0 08:35 Cannula 02/23/19 98.7 04:00 Intake and Output 02/22/19 02/22/19 02/23/19 1515:00 23:00 07:00 IntakeIntake Total 1028.129 ml 1547.651 ml 1287.5 ml OutputOutput Total 575 ml 425 ml 1350 ml BalanceBalance 453.129 ml 1122.651 ml -62.5 ml Exam Gen: Obese man in some discomfort supine in bed. Eyes: Normal Conjunctiva, anicteric ENT: Moist mucous membranes, clear oropharynx. Neck: Full range of motion. No meningismus. No lymphadenopathy. Resp: Clear to auscultation bilaterally. Cardio: Regular rate and rhythm. Abd: L flank tenderness to palpation. Soft, nondistended, normal bowel sounds, non tender. Ext: No lower extremity edema bilaterally Results Results 24hrs Laboratory Tests Test 02/23/19 04:00 White Blood Count 15.1 #H Red Blood Count 3.55 L Hemoglobin 8.6 L Hematocrit 28.7 L Mean Corpuscular Volume 80.8 L Mean Corpuscular Hemoglobin 24.2 L Mean Corpuscular Hemoglobin Concent 30.0 L Red Cell Distribution Width 20.2 H Platelet Count 129 L Mean Platelet Volume Immature Granulocytes % 1.700 H Neutrophils % Segmented Neutrophils % (Manual) 80 H Band Neutrophils % (Manual) 10 H Lymphocytes % Lymphocytes % (Manual) 3 L Reactive Lymphocytes % (Manual) 1 H Monocytes % Monocytes % (Manual) 1 Eosinophils % Eosinophils % (Manual) 5 Basophils % Nucleated Red Blood Cells % 0.0 Immature Granulocytes # 0.250 H Neutrophils # Neutrophils # (Manual) 12.3 H Band Neutrophils # 1.5 H Lymphocytes (Manual) 0.4 L Lymphocytes # Reactive Lymphocytes # 0.1 H Monocytes # Monocytes # (Manual) 0.1 L Eosinophils # Basophils # Nucleated Red Blood Cells # Platelet Estimate DECREASED Giant Platelets 1 H Polychromasia 1+ Hypochromasia 1+ Poikilocytosis 3+ Anisocytosis 1+ Microcytosis 1+ Spherocytes 1+ Tear Drop Cells 1+ Ovalocytes 1+ Sodium Level 141 Potassium Level 3.4 L Chloride Level 111 H Carbon Dioxide Level 25 Anion Gap 5 Blood Urea Nitrogen 9 Creatinine 0.73 Est Glomerular Filtrat Rate mL/min > 60 Glucose Level 76 # Calcium Level 7.7 L Magnesium Level 1.8 Iron Level 33 L Total Iron Binding Capacity 197 L Percent Iron Saturation 17 L Ferritin 167.0 Medications Medication Current Medications IV Flush (NS 3 ml) 3 ml PER PROTOCOL IV ; Start 02/21/19 at 01:30 Ondansetron HCl (Zofran Inj) 4 mg Q6H PRN IV NAUSEA/VOMITING; Start 02/21/19 at 01:30 Acetaminophen (Tylenol Tab) 650 mg Q6H PRN PO .PAIN 1-3 OR TEMP Last administered on 02/21/19at 20:56; Admin Dose 650 MG; Start 02/21/19 at 01:30 Acetaminophen/ Hydrocodone Bitart ([place] (5/325)) 1 tab Q6H PRN PO .MOD PAIN 4- 6 Last administered on 02/23/19 08:40; Admin Dose 1 TAB; Start 02/21/19 at 01:30 Morphine Sulfate (morphine) 2 mg Q4H PRN IV .SEVERE PAIN 7-10 Last administered on 02/22/19 23:52; Admin Dose 2 MG; Start 02/21/19 at 01:30 Docusate Sodium (Colace) 100 mg Q12H PRN PO .CONSTIPATION; Start 02/21/19 at 01:30 Magnesium Hydroxide (Milk Of Mag) 30 ml DAILY PRN PO .CONSTIPATION; Start 02/21/19 at 01:30 Pantoprazole (Protonix Iv) 40 mg DAILY@06 IV Last administered on 02/23/19 05:11; Admin Dose 40 MG; Start 02/21/19 at 06:00 Heparin Sodium (Porcine) (Heparin (5000 Units/1ml)) 5,000 unit Q12 SC Last administered on 02/23/19 08:41; Admin Dose 5,000 UNIT; Start 02/21/19 at 09:00 Lorazepam (Ativan) 0.5 mg Q6H PRN IV ANXIETY; Start 02/21/19 at 01:30 Albuterol/ Ipratropium (Duoneb) 3 ml Q4H RESP THERAPY PRN HHN SHORTNESS OF BREATH; Start 02/21/19 at 01:30 Hydralazine HCl (Apresoline) 10 mg Q6H PRN IV ELEVATED BLOOD PRESSURE; Start 02/21/19 at 01:30 Nitroglycerin (Nitroglycerin (Sl Tab) 0.4 Mg) 1 tab Q5M PRN SL ANGINA; Start 02/21/19 at 01:30 Norepinephrine 250 ml @ 1.875 mls/ hr PER PROTOCOL IV Last administered on 02/22/19 03:47; Admin Dose 16.875 MLS/HR; Start 02/21/19 at 01:30 Ferrous Sulfate (Ferrous Sulfate (Ec)) 325 mg DAILY PO Last administered on 02/23/19at 08:40; Admin Dose 325 MG; Start 02/21/19 at 09:00 Meropenem/Sodium Chloride 50 ml @ 100 mls/hr Q8H IVPB Last administered on 02/23/19 08:42; Admin Dose 100 MLS/HR; Start 02/21/19 at 01:30 Sodium Chloride 1,000 ml @ 125 mls/hr Q8H IV Last administered on 02/23/19at 03:28; Admin Dose 125 MLS/HR; Start 02/21/19 at 16:00 Guaifenesin (Robitussin Liquid Cup) 200 mg Q4H PRN PO COUGH Last administered on 02/22/19 19:02; Admin Dose 200 MG; Start 02/22/19 at 14:30 MADDIE HOYOS MD Feb 23, 2019 11:48
--- NOTE | 2019-02-23 13:08 | CONS ---
Assessment/Plan Assessment/Plan Hospital Course (Demo Recall) Patient is awake feels better complaining of left flank pain, no fevers overnight. WBC 15.1 platelets 129 bands 10 BUN 9 creatinine 0.73 Blood culture on admission grew E. coli ESBL, repeat blood cultures negative Antimicrobials: Meropenem Indwelling: Right chest Port-A-Cath CT abdomen and pelvis on admission revealed multiple low-attenuation splenic lesions which are new compared to prior examination and may be infectious/inflammatory in etiology such as abscesses bibasilar airspace disease which may represent atelectasis Physical examination: This is well-nourished ill-appearing middle-aged man who is in no distress. Head atraumatic normocephalic neck is supple chest rise symmetrical breath sounds diminished to bases heart: S1-S2 abdomen obese soft bowel sounds present extremities with trace edema Assessment: 1. Sepsis with recurrent bacteremia, rule out line sepsis 2. Questionable splenic abscesses 3. Questionable pneumonia 4. Questionable enterocolitis 5. Chronic anemia 6. History of E. coli ESBL and Citrobacter bacteremia on January 31, 2019 7. Status post open hemorrhoidectomy 01/27/19 Plan: Improving, pending KALEY, anticipate to keep on Merrem for 2 weeks Consultation Date/Type/Reason Admit Date/Time Feb 20, 2019 at 23:21 Initial Consult Date Type of Consult id Date/Time of Note DATE: 02/23/19 TIME: 13:05 Exam/Review of Systems Exam Vitals Vital Signs Date Temp Pulse Resp B/P (MAP) Pulse Ox O2 O2 Flow FiO2 Time Delivery Rate 02/23/19 72 12:00 02/23/19 115/75 91 11:30 (88) 02/23/19 Room Air 11:00 02/23/19 35 10:00 02/23/19 2.0 08:35 02/23/19 98.7 04:00 Intake and Output 02/22/19 02/22/19 02/23/19 1515:00 23:00 07:00 IntakeIntake Total 1028.129 ml 1547.651 ml 1287.5 ml OutputOutput Total 575 ml 425 ml 1350 ml BalanceBalance 453.129 ml 1122.651 ml -62.5 ml Results Result Diagram: 02/23/19 0400 02/23/19 0400 Results 24hrs Laboratory Tests Test 02/23/19 04:00 White Blood Count 15.1 #H Red Blood Count 3.55 L Hemoglobin 8.6 L Hematocrit 28.7 L Mean Corpuscular Volume 80.8 L Mean Corpuscular Hemoglobin 24.2 L Mean Corpuscular Hemoglobin Concent 30.0 L Red Cell Distribution Width 20.2 H Platelet Count 129 L Mean Platelet Volume Immature Granulocytes % 1.700 H Neutrophils % Segmented Neutrophils % (Manual) 80 H Band Neutrophils % (Manual) 10 H Lymphocytes % Lymphocytes % (Manual) 3 L Reactive Lymphocytes % (Manual) 1 H Monocytes % Monocytes % (Manual) 1 Eosinophils % Eosinophils % (Manual) 5 Basophils % Nucleated Red Blood Cells % 0.0 Immature Granulocytes # 0.250 H Neutrophils # Neutrophils # (Manual) 12.3 H Band Neutrophils # 1.5 H Lymphocytes (Manual) 0.4 L Lymphocytes # Reactive Lymphocytes # 0.1 H Monocytes # Monocytes # (Manual) 0.1 L Eosinophils # Basophils # Nucleated Red Blood Cells # Platelet Estimate DECREASED Giant Platelets 1 H Polychromasia 1+ Hypochromasia 1+ Poikilocytosis 3+ Anisocytosis 1+ Microcytosis 1+ Spherocytes 1+ Tear Drop Cells 1+ Ovalocytes 1+ Sodium Level 141 Potassium Level 3.4 L Chloride Level 111 H Carbon Dioxide Level 25 Anion Gap 5 Blood Urea Nitrogen 9 Creatinine 0.73 Est Glomerular Filtrat Rate mL/min > 60 Glucose Level 76 # Calcium Level 7.7 L Magnesium Level 1.8 Iron Level 33 L Total Iron Binding Capacity 197 L Percent Iron Saturation 17 L Ferritin 167.0 Medications Medication Current Medications IV Flush (NS 3 ml) 3 ml PER PROTOCOL IV ; Start 02/21/19 at 01:30 Ondansetron HCl (Zofran Inj) 4 mg Q6H PRN IV NAUSEA/VOMITING; Start 02/21/19 at 01:30 Acetaminophen (Tylenol Tab) 650 mg Q6H PRN PO .PAIN 1-3 OR TEMP Last administered on 02/21/19at 20:56; Admin Dose 650 MG; Start 02/21/19 at 01:30 Acetaminophen/ Hydrocodone Bitart ([place] (5/325)) 1 tab Q6H PRN PO .MOD PAIN 4- 6 Last administered on 02/23/19at 08:40; Admin Dose 1 TAB; Start 02/21/19 at 01:30 Morphine Sulfate (morphine) 2 mg Q4H PRN IV .SEVERE PAIN 7-10 Last administered on 02/22/19 23:52; Admin Dose 2 MG; Start 02/21/19 at 01:30 Docusate Sodium (Colace) 100 mg Q12H PRN PO .CONSTIPATION; Start 02/21/19 at 01:30 Magnesium Hydroxide (Milk Of Mag) 30 ml DAILY PRN PO .CONSTIPATION; Start 02/21/19 at 01:30 Pantoprazole (Protonix Iv) 40 mg DAILY@06 IV Last administered on 02/23/19 05:11; Admin Dose 40 MG; Start 02/21/19 at 06:00 Heparin Sodium (Porcine) (Heparin (5000 Units/1ml)) 5,000 unit Q12 SC Last administered on 02/23/19 08:41; Admin Dose 5,000 UNIT; Start 02/21/19 at 09:00 Albuterol/ Ipratropium (Duoneb) 3 ml Q4H RESP THERAPY PRN HHN SHORTNESS OF BREATH; Start 02/21/19 at 01:30 Hydralazine HCl (Apresoline) 10 mg Q6H PRN IV ELEVATED BLOOD PRESSURE; Start 02/21/19 at 01:30 Nitroglycerin (Nitroglycerin (Sl Tab) 0.4 Mg) 1 tab Q5M PRN SL ANGINA; Start 02/21/19 at 01:30 Ferrous Sulfate (Ferrous Sulfate (Ec)) 325 mg DAILY PO Last administered on 02/23/19 08:40; Admin Dose 325 MG; Start 02/21/19 at 09:00 Meropenem/Sodium Chloride 50 ml @ 100 mls/hr Q8H IVPB Last administered on 02/23/19 08:42; Admin Dose 100 MLS/HR; Start 02/21/19 at 01:30 Guaifenesin (Robitussin Liquid Cup) 200 mg Q4H PRN PO COUGH Last administered on 02/22/19 19:02; Admin Dose 200 MG; Start 02/22/19 at 14:30 JAYRO SANTIAGO NP Feb 23, 2019 13:08
[2019-02-23] MEDS: GUAIFENESIN 20 MG/ML 5ML CUP PO PRN ×2 (14:52→20:52)
--- NOTE | 2019-02-23 14:56 | RADRPT ---
Echocardiogram Report Patient Name: CANDI JENKINSPatient ID: [id number] : 1965 (53y 2m)Study Date: 02/22/2019 2:39:19 PM Gender: MAccession #: [id number] Tech: German Lennon [facility] Location: [address] Ref.Physician: MADDIE HOYOS Height(Cm): BSA: Weight(Kg): Quality: AdequateOrder Physician: MADDIE HOYOS Account #: Procedures: Echocardiographic Report: Transthoracic echocardiogram with complete 2D, M-Mode, and doppler examination. Indications: Suspects embolic infarcts of spleen. Measurements: 2D/M Mode Doppler Measurement Value Normal Range Measurement Value Normal Range LVIDd 2D 5.8 [ 4.2 - 5.8 ] cm AV Peak Rc 1.5 [ 100.0 - 170.0 ] cm/sec LVIDs 2D 4.2 [ 2.5 - 4.0 ] cm AV Peak PG 9.0 [ 2.0 - 9.0 ] mmHg LVPWd 2D 1.1 [ 0.6 - 1.0 ] cm LVOT Peak Rc 1.0 [ 70.0 - 110.0 ] cm/sec IVSd 2D 1.2 [ 0.6 - 1.0 ] cm LVOT Peak PG 4.0 [ 2.0 - 6.0 ] mmHg AoR Diam 2D 3.7 [ 2.6 - 3.4 ] cm MV E Peak Rc 0.8 [ 60.0 - 130.0 ] cm/sec EDV 2D 168.0 [ 62.0 - 150.0 ] ml MV A Peak Rc 0.7 [ 100.0 - 120.0 ] cm/sec ESV 2D 79.0 [ 21.0 - 61.0 ] ml MV E/A 1.2 [ 0.8 - 1.5 ] ratio EF 2D 53.0 [ 52.0 - 72.0 ] percent MV Decel Time 197 [ 104 - 258 ] msec LA Dimen 2D 3.8 [ 3.0 - 4.0 ] cm Lat E` Cr 0.1 [ 10.0 - 15.0 ] cm/sec Lateral E/E` 6.1 [ 1.0 - 2.0 ] ratio MV E/A 1.2 [ 0.8 - 1.5 ] ratio TR Peak Rc 2.4 [ 100.0 - 280.0 ] cm/sec TR Peak PG 23.0 mmHg RVSP 26.0 [ 10.0 - 36.0 ] mmHg Findings: Left Ventricle: Normal left ventricular systolic function. Normal left ventricular cavity size. Sigmoid septum. Ejection fraction is visually estimated at 60 %. Tissue Doppler/Mitral Doppler indices are consistent with impaired relaxation (Stage I diastolic dysfunction). Right Ventricle: Normal right ventricular size. Normal right ventricular systolic function. Left Atrium: The left atrium is normal in size. Right Atrium: The right atrium is normal in size. Mitral Valve: Mild mitral leaflet calcification. Mild mitral annular calcification. Trace mitral regurgitation. Aortic Valve: No hemodynamically significant aortic stenosis by doppler. Aortic cusps appear mildly calcified. Tricuspid Valve: Normal appearance of the tricuspid valve. The estimated Peak RVSP is 26 mmHg. There is trace tricuspid regurgitation. Pericardium: Normal pericardium with no significant pericardial effusion. Left pleural effusion seen. Aorta: Normal aortic root. IVC: Normal size and normal respiratory collapse consistent with normal right atrial pressure. Conclusions: Normal left ventricular systolic function. Normal left ventricular cavity size. Sigmoid septum. Ejection fraction is visually estimated at 60 %. Tissue Doppler/Mitral Doppler indices are consistent with impaired relaxation (Stage I diastolic dysfunction). Mild mitral leaflet calcification. Mild mitral annular calcification. Trace mitral regurgitation. Normal appearance of the tricuspid valve. The estimated Peak RVSP is 26 mmHg. There is trace tricuspid regurgitation. Electronically Signed By: Maddie Tang 2019-02-23 14:55:48 PDT
[2019-02-23] MEDS: morphine 2 MG INJ IV PRN (20:52)
[2019-02-24 01:35] VITALS: BP 98/56; PULSE 75; RESP 16
[2019-02-24] MEDS: MEROPENEM 1 GM/50ML(PMX) 50 ML IVPB SCH ×3 (03:06→17:12)
[2019-02-24] MEDS: morphine 2 MG INJ IV PRN ×2 (03:15→21:08)
[2019-02-24] MEDS: PANTOPRAZOLE 40 MG INJ IV SCH (05:40)
[2019-02-24 07:38] VITALS: BP 118/68; PULSE 63; RESP 18
[2019-02-24] MEDS: FERROUS SULFATE (EC) 325 MG TAB PO SCH (08:06)
[2019-02-24] MEDS: HEPARIN 5,000 UNIT/1 ML VIAL SC SCH ×2 (08:08→21:07)
[2019-02-24] MEDS: HYDROCODONE/APAP (5/325) TAB PO PRN ×2 (09:16→15:23)
[2019-02-24] MEDS: GUAIFENESIN 20 MG/ML 5ML CUP PO PRN ×3 (09:17→21:08)
--- NOTE | 2019-02-24 14:06 | CONS ---
Assessment/Plan Assessment/Plan Hospital Course (Demo Recall) Awake, feels good Blood culture on admission grew E. coli ESBL, repeat blood cultures negative Antimicrobials: Meropenem Indwelling: Right chest Port-A-Cath CT abdomen and pelvis on admission revealed multiple low-attenuation splenic lesions which are new compared to prior examination and may be infectious/inflammatory in etiology such as abscesses bibasilar airspace disease which may represent atelectasis Physical examination: This is well-nourished ill-appearing middle-aged man who is in no distress. Head atraumatic normocephalic neck is supple chest rise symmetrical breath sounds diminished to bases heart: S1-S2 abdomen obese soft bowel sounds present extremities with trace edema Assessment: 1. Sepsis with recurrent bacteremia 2. Questionable splenic abscesses 3. Questionable pneumonia 4. Questionable enterocolitis 5. Chronic anemia 6. History of E. coli ESBL and Citrobacter bacteremia on January 31, 2019 7. Status post open hemorrhoidectomy 01/27/19 Plan: Continues to improve, 2D echo noted, repeat blood cultures negative, anticipate to keep on Merrem to complete 2 weeks, consider repeat CT abdomen prior to discontinuation of antibiotics Consultation Date/Type/Reason Admit Date/Time Feb 20, 2019 at 23:21 Initial Consult Date Type of Consult id Date/Time of Note DATE: 02/24/19 TIME: 14:04 Exam/Review of Systems Exam Vitals Vital Signs Date Temp Pulse Resp B/P (MAP) Pulse Ox O2 O2 Flow FiO2 Time Delivery Rate 02/24/19 Nasal 2.0 08:10 Cannula 02/24/19 98.6 63 18 118/68 97 07:38 (85) Intake and Output 02/23/19 02/23/19 02/24/19 1515:00 23:00 07:00 IntakeIntake Total 1235 ml 290 ml 50 ml OutputOutput Total 400 ml 350 ml 600 ml BalanceBalance 835 ml -60 ml -550 ml Results Result Diagram: 02/24/19 0435 02/24/19 0435 Results 24hrs Laboratory Tests Test 02/24/19 04:35 White Blood Count 10.3 # Red Blood Count 3.77 L Hemoglobin 8.9 L Hematocrit 29.8 L Mean Corpuscular Volume 79.0 L Mean Corpuscular Hemoglobin 23.6 L Mean Corpuscular Hemoglobin Concent 29.9 L Red Cell Distribution Width 20.4 H Platelet Count 177 # Mean Platelet Volume Immature Granulocytes % 1.100 H Neutrophils % 81.7 H Lymphocytes % 9.6 L Monocytes % 4.6 Eosinophils % 2.7 Basophils % 0.3 Nucleated Red Blood Cells % 0.0 Immature Granulocytes # 0.110 H Neutrophils # 8.4 H Lymphocytes # 1.0 Monocytes # 0.5 Eosinophils # 0.3 Basophils # 0.0 Nucleated Red Blood Cells # 0.0 Sodium Level 142 Potassium Level 3.4 L Chloride Level 108 Carbon Dioxide Level 25 Anion Gap 9 Blood Urea Nitrogen 8 Creatinine 0.67 Est Glomerular Filtrat Rate mL/min > 60 Glucose Level 83 Calcium Level 7.9 L Medications Medication Current Medications IV Flush (NS 3 ml) 3 ml PER PROTOCOL IV ; Start 02/21/19 at 01:30 Ondansetron HCl (Zofran Inj) 4 mg Q6H PRN IV NAUSEA/VOMITING; Start 02/21/19 at 01:30 Acetaminophen (Tylenol Tab) 650 mg Q6H PRN PO .PAIN 1-3 OR TEMP Last administered on 02/21/19at 20:56; Admin Dose 650 MG; Start 02/21/19 at 01:30 Acetaminophen/ Hydrocodone Bitart ([place] (5/325)) 1 tab Q6H PRN PO .MOD PAIN 4- 6 Last administered on 02/24/19at 09:16; Admin Dose 1 TAB; Start 02/21/19 at 01:30 Morphine Sulfate (morphine) 2 mg Q4H PRN IV .SEVERE PAIN 7-10 Last administered on 02/24/19 03:15; Admin Dose 2 MG; Start 02/21/19 at 01:30 Docusate Sodium (Colace) 100 mg Q12H PRN PO .CONSTIPATION; Start 02/21/19 at 01:30 Magnesium Hydroxide (Milk Of Mag) 30 ml DAILY PRN PO .CONSTIPATION; Start 02/21/19 at 01:30 Pantoprazole (Protonix Iv) 40 mg DAILY@06 IV Last administered on 02/24/19at 05:40; Admin Dose 40 MG; Start 02/21/19 at 06:00 Heparin Sodium (Porcine) (Heparin (5000 Units/1ml)) 5,000 unit Q12 SC Last administered on 02/24/19 08:08; Admin Dose 5,000 UNIT; Start 02/21/19 at 09:00 Albuterol/ Ipratropium (Duoneb) 3 ml Q4H RESP THERAPY PRN HHN SHORTNESS OF BREATH; Start 02/21/19 at 01:30 Hydralazine HCl (Apresoline) 10 mg Q6H PRN IV ELEVATED BLOOD PRESSURE; Start 02/21/19 at 01:30 Nitroglycerin (Nitroglycerin (Sl Tab) 0.4 Mg) 1 tab Q5M PRN SL ANGINA; Start 02/21/19 at 01:30 Ferrous Sulfate (Ferrous Sulfate (Ec)) 325 mg DAILY PO Last administered on 02/24/19at 08:06; Admin Dose 325 MG; Start 02/21/19 at 09:00 Meropenem/Sodium Chloride 50 ml @ 100 mls/hr Q8H IVPB Last administered on 02/24/19at 09:06; Admin Dose 100 MLS/HR; Start 02/21/19 at 01:30 Guaifenesin (Robitussin Liquid Cup) 200 mg Q4H PRN PO COUGH Last administered on 02/24/19at 09:17; Admin Dose 200 MG; Start 02/22/19 at 14:30 JAYRO SANTIAGO NP Feb 24, 2019 14:06
--- NOTE | 2019-02-24 14:43 | PN ---
Date/Time of Note Date/Time of Note DATE: 02/24/19 TIME: 14:43 Assessment/Plan VTE Prophylaxis Risk score (from Ns)>0 risk: 4 SCD applied (from [facility]): No SCD contraindicated: other Pharmacological prophylaxis: NA/contraindicated Pharm contraindication: bleeding Lines/Catheters IV Catheter Type (from [facility]): port-a-cath Urinary Cath still in place: No Assessment/Plan Hospital Course SUBJECTIVE: Denies any abdominal pain. Denies any rectal bleeding. Complains of constipation. OBJECTIVE: Physical Exam General: Obese build 53 year-old male lying in bed in no apparent distress. HEENT: Normocephalic, atraumatic. Eyes: Anicteric sclerae, conjunctivae clear. ENT: Nasal septum midline, oral mucosa moist. Neck supple, no JVD noticed. Respiratory: Bilaterally clear breath sounds. No use of accessory muscles of respiration. No adventitious breath sounds. Cardiovascular: S1, S2 heard. Regular rate and rhythm. Abdomen: Soft, nontender, and nondistended. Bowel sounds positive in all 4 quadrants. Genitourinary: Deferred. Extremities: No cyanosis, no clubbing, no edema. Peripheral pulses palpable. Neurologic: Cranial nerves II through XII grossly intact. The patient is awake, alert, and oriented. Skin: Normal skin turgor. No skin rashes. Labs & Vitals per chart ASSESSMENT & PLAN 53-year-old male with past medical history of hemorrhoidal bleeding status post recent hemorrhoidectomy, iron deficiency anemia, and recent E. coli ESBL and Citrobacter bacteremia who presented to the emergency room complaining of chest pain or shortness of breath with signs of septic shock on pressor support. 1. Status post septic shock. Status post IV pressors. Culture showing E. coli ESBL bacteremia. Continue antimicrobials as per ID. 2. Multiple low-attenuation splenic lesions. Splenic abscess versus infarcts, probably secondary to recent bacteremia. Transthoracic echocardiogram negative for any embolic source. Continue antimicrobials as per ID. 3. Chronic rectal bleeding. Monitor H&H closely. Transfuse blood products as needed. 4. Iron deficiency. Continue iron supplements. 5. Fluids, electrolytes, and nutrition. Regular diet. 6. DVT prophylaxis. Bilateral SCDs. 7. Plan. Continue antimicrobials as per ID. Await clinical improvement before discharging the patient. The patient was seen in collaboration with Dr. Pepper. Result Diagram: 02/24/19 0435 02/24/19 0435 Results 24hrs Laboratory Tests Test 02/24/19 04:35 White Blood Count 10.3 # Red Blood Count 3.77 L Hemoglobin 8.9 L Hematocrit 29.8 L Mean Corpuscular Volume 79.0 L Mean Corpuscular Hemoglobin 23.6 L Mean Corpuscular Hemoglobin Concent 29.9 L Red Cell Distribution Width 20.4 H Platelet Count 177 # Mean Platelet Volume Immature Granulocytes % 1.100 H Neutrophils % 81.7 H Lymphocytes % 9.6 L Monocytes % 4.6 Eosinophils % 2.7 Basophils % 0.3 Nucleated Red Blood Cells % 0.0 Immature Granulocytes # 0.110 H Neutrophils # 8.4 H Lymphocytes # 1.0 Monocytes # 0.5 Eosinophils # 0.3 Basophils # 0.0 Nucleated Red Blood Cells # 0.0 Sodium Level 142 Potassium Level 3.4 L Chloride Level 108 Carbon Dioxide Level 25 Anion Gap 9 Blood Urea Nitrogen 8 Creatinine 0.67 Est Glomerular Filtrat Rate mL/min > 60 Glucose Level 83 Calcium Level 7.9 L Exam/Review of Systems Exam Vitals Vital Signs Date Temp Pulse Resp B/P (MAP) Pulse Ox O2 O2 Flow FiO2 Time Delivery Rate 02/24/19 Nasal 2.0 08:10 Cannula 02/24/19 98.6 63 18 118/68 97 07:38 (85) Intake and Output 02/23/19 02/23/19 02/24/19 1515:00 23:00 07:00 IntakeIntake Total 1235 ml 290 ml 50 ml OutputOutput Total 400 ml 350 ml 600 ml BalanceBalance 835 ml -60 ml -550 ml Results Results 24hrs Laboratory Tests Test 02/24/19 04:35 White Blood Count 10.3 # Red Blood Count 3.77 L Hemoglobin 8.9 L Hematocrit 29.8 L Mean Corpuscular Volume 79.0 L Mean Corpuscular Hemoglobin 23.6 L Mean Corpuscular Hemoglobin Concent 29.9 L Red Cell Distribution Width 20.4 H Platelet Count 177 # Mean Platelet Volume Immature Granulocytes % 1.100 H Neutrophils % 81.7 H Lymphocytes % 9.6 L Monocytes % 4.6 Eosinophils % 2.7 Basophils % 0.3 Nucleated Red Blood Cells % 0.0 Immature Granulocytes # 0.110 H Neutrophils # 8.4 H Lymphocytes # 1.0 Monocytes # 0.5 Eosinophils # 0.3 Basophils # 0.0 Nucleated Red Blood Cells # 0.0 Sodium Level 142 Potassium Level 3.4 L Chloride Level 108 Carbon Dioxide Level 25 Anion Gap 9 Blood Urea Nitrogen 8 Creatinine 0.67 Est Glomerular Filtrat Rate mL/min > 60 Glucose Level 83 Calcium Level 7.9 L Medications Medication Current Medications IV Flush (NS 3 ml) 3 ml PER PROTOCOL IV ; Start 02/21/19 at 01:30 Ondansetron HCl (Zofran Inj) 4 mg Q6H PRN IV NAUSEA/VOMITING; Start 02/21/19 at 01:30 Acetaminophen (Tylenol Tab) 650 mg Q6H PRN PO .PAIN 1-3 OR TEMP Last administered on 02/21/19at 20:56; Admin Dose 650 MG; Start 02/21/19 at 01:30 Acetaminophen/ Hydrocodone Bitart ([place] (5/325)) 1 tab Q6H PRN PO .MOD PAIN 4- 6 Last administered on 02/24/19at 09:16; Admin Dose 1 TAB; Start 02/21/19 at 01:30 Morphine Sulfate (morphine) 2 mg Q4H PRN IV .SEVERE PAIN 7-10 Last administered on 02/24/19at 03:15; Admin Dose 2 MG; Start 02/21/19 at 01:30 Docusate Sodium (Colace) 100 mg Q12H PRN PO .CONSTIPATION; Start 02/21/19 at 01:30 Magnesium Hydroxide (Milk Of Mag) 30 ml DAILY PRN PO .CONSTIPATION; Start 02/21/19 at 01:30 Pantoprazole (Protonix Iv) 40 mg DAILY@06 IV Last administered on 02/24/19at 05:40; Admin Dose 40 MG; Start 02/21/19 at 06:00 Heparin Sodium (Porcine) (Heparin (5000 Units/1ml)) 5,000 unit Q12 SC Last administered on 02/24/19at 08:08; Admin Dose 5,000 UNIT; Start 02/21/19 at 09:00 Albuterol/ Ipratropium (Duoneb) 3 ml Q4H RESP THERAPY PRN HHN SHORTNESS OF BREATH; Start 02/21/19 at 01:30 Hydralazine HCl (Apresoline) 10 mg Q6H PRN IV ELEVATED BLOOD PRESSURE; Start 02/21/19 at 01:30 Nitroglycerin (Nitroglycerin (Sl Tab) 0.4 Mg) 1 tab Q5M PRN SL ANGINA; Start 02/21/19 at 01:30 Ferrous Sulfate (Ferrous Sulfate (Ec)) 325 mg DAILY PO Last administered on 02/24/19at 08:06; Admin Dose 325 MG; Start 02/21/19 at 09:00 Meropenem/Sodium Chloride 50 ml @ 100 mls/hr Q8H IVPB Last administered on 02/24/19 09:06; Admin Dose 100 MLS/HR; Start 02/21/19 at 01:30 Guaifenesin (Robitussin Liquid Cup) 200 mg Q4H PRN PO COUGH Last administered on 02/24/19 09:17; Admin Dose 200 MG; Start 02/22/19 at 14:30 JIMENA STONE NP Feb 24, 2019 14:43
[2019-02-24 15:06] VITALS: BP 115/74; PULSE 104; RESP 18
[2019-02-24] MEDS ORDERED: POTASSIUM CHLORIDE (SR) 10 MEQ TAB PO ONE (15:30)
[2019-02-24] MEDS ORDERED: BISACODYL (EC) 5 MG TAB PO PRN (15:30)
[2019-02-24 19:33] VITALS: BP 95/55; PULSE 78; RESP 16
[2019-02-24] MEDS: POLYETHYLENE GLYCOL 17 GM PACKET PO SCH (21:05)
[2019-02-25] MEDS: HYDROCODONE/APAP (5/325) TAB PO PRN ×3 (01:08→15:48)
[2019-02-25] MEDS: MEROPENEM 1 GM/50ML(PMX) 50 ML IVPB SCH ×3 (01:09→18:12)
[2019-02-25] MEDS: GUAIFENESIN 20 MG/ML 5ML CUP PO PRN ×4 (01:12→21:49)
[2019-02-25 01:35] VITALS: BP 120/65; PULSE 71; RESP 18
[2019-02-25 07:31] VITALS: BP 116/70; PULSE 67; RESP 18
[2019-02-25] MEDS: POLYETHYLENE GLYCOL 17 GM PACKET PO SCH ×2 (08:51→21:00)
[2019-02-25] MEDS: FERROUS SULFATE (EC) 325 MG TAB PO SCH (08:51)
[2019-02-25] MEDS: HEPARIN 5,000 UNIT/1 ML VIAL SC SCH ×2 (08:54→21:49)
[2019-02-25] MEDS: FAMOTIDINE 20 MG INJ IV SCH ×2 (08:58→21:44)
--- NOTE | 2019-02-25 10:50 | CONS ---
Assessment/Plan Assessment/Plan Hospital Course (Demo Recall) All noted, no acute events, no fevers Blood culture on admission grew E. coli ESBL, repeat blood cultures negative Antimicrobials: Meropenem Indwelling: Right chest Port-A-Cath CT abdomen and pelvis on admission revealed multiple low-attenuation splenic lesions which are new compared to prior examination and may be infectious/inflammatory in etiology such as abscesses bibasilar airspace disease which may represent atelectasis Physical examination: This is well-nourished ill-appearing middle-aged man who is in no distress. Head atraumatic normocephalic neck is supple chest rise symmetrical breath sounds diminished to bases heart: S1-S2 abdomen obese soft bowel sounds present extremities with trace edema Assessment: 1. Sepsis with recurrent bacteremia 2. Questionable splenic abscesses 3. Questionable pneumonia 4. Questionable enterocolitis 5. Chronic anemia 6. History of E. coli ESBL and Citrobacter bacteremia on January 31, 2019 7. Status post open hemorrhoidectomy 01/27/19 Plan: Stable, no vegetations per 2D echo, repeat blood cultures negative, anticipate to keep on Merrem to complete 2 weeks, consider repeat CT abdomen prior to discontinuation of antibiotics to assess for splenic abscesses resolution Consultation Date/Type/Reason Admit Date/Time Feb 20, 2019 at 23:21 Initial Consult Date Type of Consult id Date/Time of Note DATE: 02/25/19 TIME: 10:49 Exam/Review of Systems Exam Vitals Vital Signs Date Temp Pulse Resp B/P (MAP) Pulse Ox O2 O2 Flow FiO2 Time Delivery Rate 02/25/19 Nasal 2.0 08:00 Cannula 02/25/19 98.4 67 18 116/70 95 07:31 (85) Intake and Output 02/24/19 02/24/19 02/25/19 1515:00 23:00 07:00 IntakeIntake Total 890 ml 410 ml 600 ml OutputOutput Total 350 ml BalanceBalance 540 ml 410 ml 600 ml Results Result Diagram: 02/25/19 0434 02/25/19 0434 Results 24hrs Laboratory Tests Test 02/25/19 04:34 White Blood Count 9.0 Red Blood Count 4.01 L Hemoglobin 9.6 L Hematocrit 31.8 L Mean Corpuscular Volume 79.3 L Mean Corpuscular Hemoglobin 23.9 L Mean Corpuscular Hemoglobin Concent 30.2 L Red Cell Distribution Width 20.6 H Platelet Count 165 Mean Platelet Volume Immature Granulocytes % 1.100 H Neutrophils % 76.6 Lymphocytes % 11.4 L Monocytes % 6.3 Eosinophils % 4.0 Basophils % 0.6 Nucleated Red Blood Cells % 0.0 Immature Granulocytes # 0.100 H Neutrophils # 6.9 Lymphocytes # 1.0 Monocytes # 0.6 Eosinophils # 0.4 Basophils # 0.1 Nucleated Red Blood Cells # 0.0 Sodium Level 140 Potassium Level 3.9 Chloride Level 107 Carbon Dioxide Level 29 Anion Gap 4 L Blood Urea Nitrogen 10 Creatinine 0.75 Est Glomerular Filtrat Rate mL/min > 60 Glucose Level 103 Calcium Level 8.6 Phosphorus Level 3.2 Magnesium Level 1.9 Medications Medication Current Medications IV Flush (NS 3 ml) 3 ml PER PROTOCOL IV Last administered on 02/25/19 08:55; Admin Dose 3 ML; Start 02/21/19 at 01:30 Ondansetron HCl (Zofran Inj) 4 mg Q6H PRN IV NAUSEA/VOMITING; Start 02/21/19 at 01:30 Acetaminophen (Tylenol Tab) 650 mg Q6H PRN PO .PAIN 1-3 OR TEMP Last administered on 02/21/19 20:56; Admin Dose 650 MG; Start 02/21/19 at 01:30 Acetaminophen/ Hydrocodone Bitart ([place] (5/325)) 1 tab Q6H PRN PO .MOD PAIN 4- 6 Last administered on 02/25/19 06:48; Admin Dose 1 TAB; Start 02/21/19 at 01:30 Morphine Sulfate (morphine) 2 mg Q4H PRN IV .SEVERE PAIN 7-10 Last administered on 02/24/19 21:08; Admin Dose 2 MG; Start 02/21/19 at 01:30 Docusate Sodium (Colace) 100 mg Q12H PRN PO .CONSTIPATION Last administered on 02/25/19 08:51; Admin Dose 100 MG; Start 02/21/19 at 01:30 Magnesium Hydroxide (Milk Of Mag) 30 ml DAILY PRN PO .CONSTIPATION; Start 02/21/19 at 01:30 Heparin Sodium (Porcine) (Heparin (5000 Units/1ml)) 5,000 unit Q12 SC Last administered on 02/25/19 08:54; Admin Dose 5,000 UNIT; Start 02/21/19 at 09:00 Albuterol/ Ipratropium (Duoneb) 3 ml Q4H RESP THERAPY PRN HHN SHORTNESS OF BREATH; Start 02/21/19 at 01:30 Hydralazine HCl (Apresoline) 10 mg Q6H PRN IV ELEVATED BLOOD PRESSURE; Start 02/21/19 at 01:30 Nitroglycerin (Nitroglycerin (Sl Tab) 0.4 Mg) 1 tab Q5M PRN SL ANGINA; Start 02/21/19 at 01:30 Ferrous Sulfate (Ferrous Sulfate (Ec)) 325 mg DAILY PO Last administered on 02/25/19 08:51; Admin Dose 325 MG; Start 02/21/19 at 09:00 Meropenem/Sodium Chloride 50 ml @ 100 mls/hr Q8H IVPB Last administered on 02/25/19at 08:51; Admin Dose 100 MLS/HR; Start 02/21/19 at 01:30 Guaifenesin (Robitussin Liquid Cup) 200 mg Q4H PRN PO COUGH Last administered on 02/25/19at 06:48; Admin Dose 200 MG; Start 02/22/19 at 14:30 Polyethylene Glycol (Miralax) 17 gm BID PO Last administered on 02/25/19 08:51; Admin Dose 17 GM; Start 02/24/19 at 21:00 Bisacodyl (Dulcolax) 10 mg DAILY PRN PO CONSTIPATION; Start 02/24/19 at 15:30 Famotidine (Pepcid Iv) 20 mg BID IV Last administered on 02/25/19at 08:58; Admin Dose 20 MG; Start 02/25/19 at 09:00 JAYRO SATNIAGO NP Feb 25, 2019 10:50
--- NOTE | 2019-02-25 11:28 | PN ---
Date/Time of Note Date/Time of Note DATE: 02/25/19 TIME: 11:27 Assessment/Plan VTE Prophylaxis Risk score (from Ns)>0 risk: 5 SCD applied (from Ns): No SCD contraindicated: other Pharmacological prophylaxis: heparin Lines/Catheters IV C[facility]ter Type (from [facility]): port a cath Urinary Cath still in place: No Assessment/Plan Hospital Course SUBJECTIVE: Complains of left rib cage pain with coughing. Denies any rectal bleeding. OBJECTIVE: Physical Exam General: Obese build 53 year-old male lying in bed in no apparent distress. HEENT: Normocephalic, atraumatic. Eyes: Anicteric sclerae, conjunctivae clear. ENT: Nasal septum midline, oral mucosa moist. Neck supple, no JVD noticed. Respiratory: Bilaterally clear breath sounds. No use of accessory muscles of respiration. No adventitious breath sounds. Cardiovascular: S1, S2 heard. Regular rate and rhythm. Abdomen: Soft and nondistended. LUQ tenderness. Bowel sounds positive in all 4 quadrants. Genitourinary: Deferred. Extremities: No cyanosis, no clubbing, no edema. Peripheral pulses palpable. Neurologic: Cranial nerves II through XII grossly intact. The patient is awake, alert, and oriented. Skin: Normal skin turgor. No skin rashes. Labs & Vitals per chart ASSESSMENT & PLAN 53-year-old male with past medical history of hemorrhoidal bleeding status post recent hemorrhoidectomy, iron deficiency anemia, and recent E. coli ESBL and Citrobacter bacteremia who presented to the emergency room complaining of chest pain or shortness of breath with signs of septic shock on pressor support. 1. Status post septic shock. Status post IV pressors. Culture showing E. coli ESBL bacteremia. Continue antimicrobials as per ID. 2. Multiple low-attenuation splenic lesions. Splenic abscess versus infarcts, probably secondary to recent bacteremia. Transthoracic echocardiogram negative for any embolic source. Continue antimicrobials as per ID. 3. Chronic rectal bleeding. Monitor H&H closely. Transfuse blood products as needed. 4. Iron deficiency. Continue iron supplements. 5. Fluids, electrolytes, and nutrition. Regular diet. 6. DVT prophylaxis. SQ heparin. 7. Plan. Continue antimicrobials as per ID. Await clinical improvement before discharging the patient. The patient was seen in collaboration with Dr. Pepper. Result Diagram: 02/25/19 0434 02/25/19 0434 Results 24hrs Laboratory Tests Test 02/25/19 04:34 White Blood Count 9.0 Red Blood Count 4.01 L Hemoglobin 9.6 L Hematocrit 31.8 L Mean Corpuscular Volume 79.3 L Mean Corpuscular Hemoglobin 23.9 L Mean Corpuscular Hemoglobin Concent 30.2 L Red Cell Distribution Width 20.6 H Platelet Count 165 Mean Platelet Volume Immature Granulocytes % 1.100 H Neutrophils % 76.6 Lymphocytes % 11.4 L Monocytes % 6.3 Eosinophils % 4.0 Basophils % 0.6 Nucleated Red Blood Cells % 0.0 Immature Granulocytes # 0.100 H Neutrophils # 6.9 Lymphocytes # 1.0 Monocytes # 0.6 Eosinophils # 0.4 Basophils # 0.1 Nucleated Red Blood Cells # 0.0 Sodium Level 140 Potassium Level 3.9 Chloride Level 107 Carbon Dioxide Level 29 Anion Gap 4 L Blood Urea Nitrogen 10 Creatinine 0.75 Est Glomerular Filtrat Rate mL/min > 60 Glucose Level 103 Calcium Level 8.6 Phosphorus Level 3.2 Magnesium Level 1.9 Exam/Review of Systems Exam Vitals Vital Signs Date Temp Pulse Resp B/P (MAP) Pulse Ox O2 O2 Flow FiO2 Time Delivery Rate 02/25/19 Nasal 2.0 08:00 Cannula 02/25/19 98.4 67 18 116/70 95 07:31 (85) Intake and Output 02/24/19 02/24/19 02/25/19 1515:00 23:00 07:00 IntakeIntake Total 890 ml 410 ml 600 ml OutputOutput Total 350 ml BalanceBalance 540 ml 410 ml 600 ml Results Results 24hrs Laboratory Tests Test 02/25/19 04:34 White Blood Count 9.0 Red Blood Count 4.01 L Hemoglobin 9.6 L Hematocrit 31.8 L Mean Corpuscular Volume 79.3 L Mean Corpuscular Hemoglobin 23.9 L Mean Corpuscular Hemoglobin Concent 30.2 L Red Cell Distribution Width 20.6 H Platelet Count 165 Mean Platelet Volume Immature Granulocytes % 1.100 H Neutrophils % 76.6 Lymphocytes % 11.4 L Monocytes % 6.3 Eosinophils % 4.0 Basophils % 0.6 Nucleated Red Blood Cells % 0.0 Immature Granulocytes # 0.100 H Neutrophils # 6.9 Lymphocytes # 1.0 Monocytes # 0.6 Eosinophils # 0.4 Basophils # 0.1 Nucleated Red Blood Cells # 0.0 Sodium Level 140 Potassium Level 3.9 Chloride Level 107 Carbon Dioxide Level 29 Anion Gap 4 L Blood Urea Nitrogen 10 Creatinine 0.75 Est Glomerular Filtrat Rate mL/min > 60 Glucose Level 103 Calcium Level 8.6 Phosphorus Level 3.2 Magnesium Level 1.9 Medications Medication Current Medications IV Flush (NS 3 ml) 3 ml PER PROTOCOL IV Last administered on 02/25/19 08:55; Admin Dose 3 ML; Start 02/21/19 at 01:30 Ondansetron HCl (Zofran Inj) 4 mg Q6H PRN IV NAUSEA/VOMITING; Start 02/21/19 at 01:30 Acetaminophen (Tylenol Tab) 650 mg Q6H PRN PO .PAIN 1-3 OR TEMP Last administered on 02/21/19 20:56; Admin Dose 650 MG; Start 02/21/19 at 01:30 Acetaminophen/ Hydrocodone Bitart ([place] (5/325)) 1 tab Q6H PRN PO .MOD PAIN 4- 6 Last administered on 02/25/19 06:48; Admin Dose 1 TAB; Start 02/21/19 at 01:30 Morphine Sulfate (morphine) 2 mg Q4H PRN IV .SEVERE PAIN 7-10 Last administered on 02/24/19 21:08; Admin Dose 2 MG; Start 02/21/19 at 01:30 Docusate Sodium (Colace) 100 mg Q12H PRN PO .CONSTIPATION Last administered on 02/25/19 08:51; Admin Dose 100 MG; Start 02/21/19 at 01:30 Magnesium Hydroxide (Milk Of Mag) 30 ml DAILY PRN PO .CONSTIPATION; Start 02/21/19 at 01:30 Heparin Sodium (Porcine) (Heparin (5000 Units/1ml)) 5,000 unit Q12 SC Last administered on 02/25/19 08:54; Admin Dose 5,000 UNIT; Start 02/21/19 at 09:00 Albuterol/ Ipratropium (Duoneb) 3 ml Q4H RESP THERAPY PRN HHN SHORTNESS OF BREATH; Start 02/21/19 at 01:30 Hydralazine HCl (Apresoline) 10 mg Q6H PRN IV ELEVATED BLOOD PRESSURE; Start 02/21/19 at 01:30 Nitroglycerin (Nitroglycerin (Sl Tab) 0.4 Mg) 1 tab Q5M PRN SL ANGINA; Start 02/21/19 at 01:30 Ferrous Sulfate (Ferrous Sulfate (Ec)) 325 mg DAILY PO Last administered on 02/25/19 08:51; Admin Dose 325 MG; Start 02/21/19 at 09:00 Meropenem/Sodium Chloride 50 ml @ 100 mls/hr Q8H IVPB Last administered on 02/25/19 08:51; Admin Dose 100 MLS/HR; Start 02/21/19 at 01:30 Guaifenesin (Robitussin Liquid Cup) 200 mg Q4H PRN PO COUGH Last administered on 02/25/19 06:48; Admin Dose 200 MG; Start 02/22/19 at 14:30 Polyethylene Glycol (Miralax) 17 gm BID PO Last administered on 02/25/19 08:51; Admin Dose 17 GM; Start 02/24/19 at 21:00 Bisacodyl (Dulcolax) 10 mg DAILY PRN PO CONSTIPATION; Start 02/24/19 at 15:30 Famotidine (Pepcid Iv) 20 mg BID IV Last administered on 02/25/19 08:58; Admin Dose 20 MG; Start 02/25/19 at 09:00 JIMENA STONE NP Feb 25, 2019 11:28
[2019-02-25 15:23] VITALS: BP 117/70; PULSE 71; RESP 18
[2019-02-25 20:29] VITALS: BP 108/67; PULSE 86; RESP 19
[2019-02-25] MEDS: morphine 2 MG INJ IV PRN (21:49)
[2019-02-26] MEDS: MEROPENEM 1 GM/50ML(PMX) 50 ML IVPB SCH ×3 (01:30→18:32)
[2019-02-26 02:49] VITALS: BP 111/64; PULSE 89; RESP 19
[2019-02-26] MEDS: HYDROCODONE/APAP (5/325) TAB PO PRN ×2 (04:23→18:33)
[2019-02-26] MEDS: GUAIFENESIN 20 MG/ML 5ML CUP PO PRN ×4 (04:24→20:52)
[2019-02-26 07:30] VITALS: BP 132/65; PULSE 92; RESP 18
[2019-02-26 07:59] VITALS: BP 112/72; PULSE 71; RESP 18
[2019-02-26] MEDS: POLYETHYLENE GLYCOL 17 GM PACKET PO SCH ×2 (09:38→20:52)
[2019-02-26] MEDS: FERROUS SULFATE (EC) 325 MG TAB PO SCH (09:39)
[2019-02-26] MEDS: FAMOTIDINE 20 MG INJ IV SCH (09:39)
[2019-02-26] MEDS: morphine 2 MG INJ IV PRN ×3 (09:39→20:52)
[2019-02-26] MEDS: HEPARIN 5,000 UNIT/1 ML VIAL SC SCH ×2 (09:44→20:55)
--- NOTE | 2019-02-26 10:46 | PN ---
Date/Time of Note Date/Time of Note DATE: 02/26/19 TIME: 10:41 Assessment/Plan VTE Prophylaxis Risk score (from Ns)>0 risk: 5 SCD applied (from [facility] [place]): No SCD contraindicated: other Pharmacological prophylaxis: heparin Lines/Catheters IV C[facility]ter Type (from [facility]): port a cath Urinary Cath still in place: No Assessment/Plan Hospital Course SUBJECTIVE: Complains of left rib cage pain with coughing. Denies any rectal bleeding. OBJECTIVE: Physical Exam General: Obese build 53 year-old male lying in bed in no apparent distress. HEENT: Normocephalic, atraumatic. Eyes: Anicteric sclerae, conjunctivae clear. ENT: Nasal septum midline, oral mucosa moist. Neck supple, no JVD noticed. Respiratory: Bilaterally clear breath sounds. No use of accessory muscles of respiration. No adventitious breath sounds. Cardiovascular: S1, S2 heard. Regular rate and rhythm. Abdomen: Soft and nondistended. LUQ tenderness. Bowel sounds positive in all 4 quadrants. Genitourinary: Deferred. Extremities: No cyanosis, no clubbing, no edema. Peripheral pulses palpable. Neurologic: Cranial nerves II through XII grossly intact. The patient is awake, alert, and oriented. Skin: Normal skin turgor. No skin rashes. Labs & Vitals per chart ASSESSMENT & PLAN 53-year-old male with past medical history of hemorrhoidal bleeding status post recent hemorrhoidectomy, iron deficiency anemia, and recent E. coli ESBL and Citrobacter bacteremia who presented to the emergency room complaining of chest pain or shortness of breath with signs of septic shock on pressor support. 1. Status post septic shock. Status post IV pressors. Culture showing E. coli ESBL bacteremia. Continue antimicrobials as per ID. 2. Multiple low-attenuation splenic lesions. Splenic abscess versus infarcts, probably secondary to recent bacteremia. Transthoracic echocardiogram negative for any embolic source. Continue antimicrobials as per ID. 3. Possible underlying infective endocarditis. ASHLEY criteria: Positive if 2 major criteria; or 1 major + 3 minor criteria or; 5 minor criteria. Major criteria: i) Typical microorganisms consistent with infective endocarditis from 2 separate blood cultures: No ii) Persistently positive blood culture: No. iii) Echocardiogram positive for infective endocarditis: No on TTE. iv) New valvular regurgitation: Yes Minor criteria: i) Predisposition: No. ii) Fever >100.4: Yes iii) Vascular phenomena: Yes iv) Immunologic phenomena: No v) Microbiologic evidence: Yes 4. Chronic rectal bleeding. Monitor H&H closely. Transfuse blood products as needed. 5. Iron deficiency. Continue iron supplements. 6. Fluids, electrolytes, and nutrition. Regular diet. 7. DVT prophylaxis. SQ heparin. 8. Plan. Continue antimicrobials as per ID. Obtain cardiology consult for KALEY. Await clinical improvement before discharging the patient. The plan of care was explained to the patient including the need for cardiology evaluation with the help of a certified pharmacist hospital.. The patient was seen in collaboration with Dr. Pepper. Result Diagram: 02/26/1931 02/26/1931 Results 24hrs Laboratory Tests Test 02/26/19 05:31 White Blood Count 9.5 Red Blood Count 4.12 L Hemoglobin 10.0 L Hematocrit 32.7 L Mean Corpuscular Volume 79.4 L Mean Corpuscular Hemoglobin 24.3 L Mean Corpuscular Hemoglobin Concent 30.6 L Red Cell Distribution Width 20.9 H Platelet Count 221 # Mean Platelet Volume 11.5 H Immature Granulocytes % 1.200 H Neutrophils % 76.3 Lymphocytes % 11.3 L Monocytes % 7.3 Eosinophils % 3.4 Basophils % 0.5 Nucleated Red Blood Cells % 0.0 Immature Granulocytes # 0.110 H Neutrophils # 7.2 Lymphocytes # 1.1 Monocytes # 0.7 Eosinophils # 0.3 Basophils # 0.1 Nucleated Red Blood Cells # 0.0 Sodium Level 139 Potassium Level 4.2 Chloride Level 106 Carbon Dioxide Level 27 Anion Gap 6 Blood Urea Nitrogen 14 Creatinine 0.60 L Est Glomerular Filtrat Rate mL/min > 60 Glucose Level 111 Calcium Level 8.3 L Phosphorus Level 3.2 Magnesium Level 2.1 Exam/Review of Systems Exam Vitals Vital Signs Date Temp Pulse Resp B/P (MAP) Pulse Ox O2 O2 Flow FiO2 Time Delivery Rate 02/26/19 98.2 71 18 112/72 97 Nasal 07:59 (85) Cannula 02/25/19 2.0 20:00 Intake and Output 02/25/19 02/25/19 02/26/19 1515:00 23:00 07:00 IntakeIntake Total 770 ml 410 ml 340 ml OutputOutput Total 650 ml BalanceBalance 770 ml 410 ml -310 ml Results Results 24hrs Laboratory Tests Test 02/26/19 05:31 White Blood Count 9.5 Red Blood Count 4.12 L Hemoglobin 10.0 L Hematocrit 32.7 L Mean Corpuscular Volume 79.4 L Mean Corpuscular Hemoglobin 24.3 L Mean Corpuscular Hemoglobin Concent 30.6 L Red Cell Distribution Width 20.9 H Platelet Count 221 # Mean Platelet Volume 11.5 H Immature Granulocytes % 1.200 H Neutrophils % 76.3 Lymphocytes % 11.3 L Monocytes % 7.3 Eosinophils % 3.4 Basophils % 0.5 Nucleated Red Blood Cells % 0.0 Immature Granulocytes # 0.110 H Neutrophils # 7.2 Lymphocytes # 1.1 Monocytes # 0.7 Eosinophils # 0.3 Basophils # 0.1 Nucleated Red Blood Cells # 0.0 Sodium Level 139 Potassium Level 4.2 Chloride Level 106 Carbon Dioxide Level 27 Anion Gap 6 Blood Urea Nitrogen 14 Creatinine 0.60 L Est Glomerular Filtrat Rate mL/min > 60 Glucose Level 111 Calcium Level 8.3 L Phosphorus Level 3.2 Magnesium Level 2.1 Medications Medication Current Medications IV Flush (NS 3 ml) 3 ml PER PROTOCOL IV Last administered on 02/25/19 08:55; Admin Dose 3 ML; Start 02/21/19 at 01:30 Ondansetron HCl (Zofran Inj) 4 mg Q6H PRN IV NAUSEA/VOMITING; Start 02/21/19 at 01:30 Acetaminophen (Tylenol Tab) 650 mg Q6H PRN PO .PAIN 1-3 OR TEMP Last administered on 02/21/19 20:56; Admin Dose 650 MG; Start 02/21/19 at 01:30 Acetaminophen/ Hydrocodone Bitart ([place] (5/325)) 1 tab Q6H PRN PO .MOD PAIN 4- 6 Last administered on 02/26/19 04:23; Admin Dose 1 TAB; Start 02/21/19 at 01:30 Morphine Sulfate (morphine) 2 mg Q4H PRN IV .SEVERE PAIN 7-10 Last administered on 02/26/19 09:39; Admin Dose 2 MG; Start 02/21/19 at 01:30 Docusate Sodium (Colace) 100 mg Q12H PRN PO .CONSTIPATION Last administered on 02/25/19 08:51; Admin Dose 100 MG; Start 02/21/19 at 01:30 Magnesium Hydroxide (Milk Of Mag) 30 ml DAILY PRN PO .CONSTIPATION; Start 02/21/19 at 01:30 Heparin Sodium (Porcine) (Heparin (5000 Units/1ml)) 5,000 unit Q12 SC Last administered on 02/26/19 09:44; Admin Dose 5,000 UNIT; Start 02/21/19 at 09:00 Albuterol/ Ipratropium (Duoneb) 3 ml Q4H RESP THERAPY PRN HHN SHORTNESS OF BREATH; Start 02/21/19 at 01:30 Hydralazine HCl (Apresoline) 10 mg Q6H PRN IV ELEVATED BLOOD PRESSURE; Start 02/21/19 at 01:30 Nitroglycerin (Nitroglycerin (Sl Tab) 0.4 Mg) 1 tab Q5M PRN SL ANGINA; Start 02/21/19 at 01:30 Ferrous Sulfate (Ferrous Sulfate (Ec)) 325 mg DAILY PO Last administered on 02/26/19 09:39; Admin Dose 325 MG; Start 02/21/19 at 09:00 Meropenem/Sodium Chloride 50 ml @ 100 mls/hr Q8H IVPB Last administered on 02/26/19 09:38; Admin Dose 100 MLS/HR; Start 02/21/19 at 01:30 Guaifenesin (Robitussin Liquid Cup) 200 mg Q4H PRN PO COUGH Last administered on 02/26/19 04:24; Admin Dose 200 MG; Start 02/22/19 at 14:30 Polyethylene Glycol (Miralax) 17 gm BID PO Last administered on 02/26/19 09:38; Admin Dose 17 GM; Start 02/24/19 at 21:00 Bisacodyl (Dulcolax) 10 mg DAILY PRN PO CONSTIPATION; Start 02/24/19 at 15:30 Famotidine (Pepcid Iv) 20 mg BID IV Last administered on 02/26/19 09:39; Admin Dose 20 MG; Start 02/25/19 at 09:00 JIMENA STONE NP Feb 26, 2019 10:46
--- NOTE | 2019-02-26 12:07 | CONS ---
Assessment/Plan Assessment/Plan Hospital Course (Demo Recall) All noted, no acute events, no fevers Blood culture on admission grew E. coli ESBL, repeat blood cultures negative Antimicrobials: Meropenem Indwelling: Right chest Port-A-Cath CT abdomen and pelvis on admission revealed multiple low-attenuation splenic lesions which are new compared to prior examination and may be infectious/inflammatory in etiology such as abscesses bibasilar airspace disease which may represent atelectasis Physical examination: This is well-nourished ill-appearing middle-aged man who is in no distress. Head atraumatic normocephalic neck is supple chest rise symmetrical breath sounds diminished to bases heart: S1-S2 abdomen obese soft bowel sounds present extremities with trace edema Assessment: 1. Sepsis with recurrent bacteremia 2. Questionable splenic abscesses 3. Questionable pneumonia 4. Questionable enterocolitis 5. Chronic anemia 6. History of E. coli ESBL and Citrobacter bacteremia on January 31, 2019 7. Status post open hemorrhoidectomy 01/27/19 Plan: Stable, continue abx, plan for KALEY Consultation Date/Type/Reason Admit Date/Time Feb 20, 2019 at 23:21 Initial Consult Date Type of Consult id Date/Time of Note DATE: 02/26/19 TIME: 12:03 Exam/Review of Systems Exam Vitals Vital Signs Date Temp Pulse Resp B/P (MAP) Pulse Ox O2 O2 Flow FiO2 Time Delivery Rate 02/26/19 98.2 71 18 112/72 97 Nasal 07:59 (85) Cannula 02/25/19 2.0 20:00 Intake and Output 02/25/19 02/25/19 02/26/19 1515:00 23:00 07:00 IntakeIntake Total 770 ml 410 ml 340 ml OutputOutput Total 650 ml BalanceBalance 770 ml 410 ml -310 ml Results Result Diagram: 02/26/19 0531 02/26/19 0531 Results 24hrs Laboratory Tests Test 02/26/19 05:31 White Blood Count 9.5 Red Blood Count 4.12 L Hemoglobin 10.0 L Hematocrit 32.7 L Mean Corpuscular Volume 79.4 L Mean Corpuscular Hemoglobin 24.3 L Mean Corpuscular Hemoglobin Concent 30.6 L Red Cell Distribution Width 20.9 H Platelet Count 221 # Mean Platelet Volume 11.5 H Immature Granulocytes % 1.200 H Neutrophils % 76.3 Lymphocytes % 11.3 L Monocytes % 7.3 Eosinophils % 3.4 Basophils % 0.5 Nucleated Red Blood Cells % 0.0 Immature Granulocytes # 0.110 H Neutrophils # 7.2 Lymphocytes # 1.1 Monocytes # 0.7 Eosinophils # 0.3 Basophils # 0.1 Nucleated Red Blood Cells # 0.0 Sodium Level 139 Potassium Level 4.2 Chloride Level 106 Carbon Dioxide Level 27 Anion Gap 6 Blood Urea Nitrogen 14 Creatinine 0.60 L Est Glomerular Filtrat Rate mL/min > 60 Glucose Level 111 Calcium Level 8.3 L Phosphorus Level 3.2 Magnesium Level 2.1 Medications Medication Current Medications IV Flush (NS 3 ml) 3 ml PER PROTOCOL IV Last administered on 02/25/19 08:55; Admin Dose 3 ML; Start 02/21/19 at 01:30 Ondansetron HCl (Zofran Inj) 4 mg Q6H PRN IV NAUSEA/VOMITING; Start 02/21/19 at 01:30 Acetaminophen (Tylenol Tab) 650 mg Q6H PRN PO .PAIN 1-3 OR TEMP Last administered on 02/21/19 20:56; Admin Dose 650 MG; Start 02/21/19 at 01:30 Acetaminophen/ Hydrocodone Bitart ([place] (5/325)) 1 tab Q6H PRN PO .MOD PAIN 4- 6 Last administered on 02/26/19 04:23; Admin Dose 1 TAB; Start 02/21/19 at 01:30 Morphine Sulfate (morphine) 2 mg Q4H PRN IV .SEVERE PAIN 7-10 Last administered on 02/26/19 09:39; Admin Dose 2 MG; Start 02/21/19 at 01:30 Docusate Sodium (Colace) 100 mg Q12H PRN PO .CONSTIPATION Last administered on 02/25/19 08:51; Admin Dose 100 MG; Start 02/21/19 at 01:30 Magnesium Hydroxide (Milk Of Mag) 30 ml DAILY PRN PO .CONSTIPATION; Start 02/21/19 at 01:30 Heparin Sodium (Porcine) (Heparin (5000 Units/1ml)) 5,000 unit Q12 SC Last administered on 02/26/19 09:44; Admin Dose 5,000 UNIT; Start 02/21/19 at 09:00 Albuterol/ Ipratropium (Duoneb) 3 ml Q4H RESP THERAPY PRN HHN SHORTNESS OF BREATH; Start 02/21/19 at 01:30 Hydralazine HCl (Apresoline) 10 mg Q6H PRN IV ELEVATED BLOOD PRESSURE; Start 02/21/19 at 01:30 Nitroglycerin (Nitroglycerin (Sl Tab) 0.4 Mg) 1 tab Q5M PRN SL ANGINA; Start 02/21/19 at 01:30 Ferrous Sulfate (Ferrous Sulfate (Ec)) 325 mg DAILY PO Last administered on 02/26/19 09:39; Admin Dose 325 MG; Start 02/21/19 at 09:00 Meropenem/Sodium Chloride 50 ml @ 100 mls/hr Q8H IVPB Last administered on 02/26/19 09:38; Admin Dose 100 MLS/HR; Start 02/21/19 at 01:30 Guaifenesin (Robitussin Liquid Cup) 200 mg Q4H PRN PO COUGH Last administered on 02/26/19 10:42; Admin Dose 200 MG; Start 02/22/19 at 14:30 Polyethylene Glycol (Miralax) 17 gm BID PO Last administered on 02/26/19 09:38; Admin Dose 17 GM; Start 02/24/19 at 21:00 Bisacodyl (Dulcolax) 10 mg DAILY PRN PO CONSTIPATION; Start 02/24/19 at 15:30 Famotidine (Pepcid Iv) 20 mg BID IV Last administered on 02/26/19 09:39; Admin Dose 20 MG; Start 02/25/19 at 09:00 JAYRO SANTIAGO NP Feb 26, 2019 12:07
[2019-02-26 14:22] VITALS: BP 120/67; PULSE 78; RESP 19
[2019-02-26 19:59] VITALS: BP 114/64; PULSE 81; RESP 18
[2019-02-26] MEDS: FAMOTIDINE 20 MG TAB PO SCH (20:52)
[2019-02-27] MEDS: MEROPENEM 1 GM/50ML(PMX) 50 ML IVPB SCH ×3 (01:22→17:21)
[2019-02-27 01:53] VITALS: BP 108/67; PULSE 65; RESP 18
[2019-02-27] MEDS: GUAIFENESIN 20 MG/ML 5ML CUP PO PRN ×4 (04:29→20:44)
[2019-02-27] MEDS: morphine 2 MG INJ IV PRN ×4 (04:30→19:36)
[2019-02-27 07:20] VITALS: BP 111/69; PULSE 74; RESP 16
[2019-02-27] MEDS: FERROUS SULFATE (EC) 325 MG TAB PO SCH (08:12)
[2019-02-27] MEDS: POLYETHYLENE GLYCOL 17 GM PACKET PO SCH ×2 (08:12→20:44)
[2019-02-27] MEDS: FAMOTIDINE 20 MG TAB PO SCH ×2 (08:12→20:45)
[2019-02-27] MEDS: HEPARIN 5,000 UNIT/1 ML VIAL SC SCH ×2 (08:14→20:48)
[2019-02-27] MEDS: HYDROCODONE/APAP (5/325) TAB PO PRN (09:20)
--- NOTE | 2019-02-27 11:20 | PN ---
Date/Time of Note Date/Time of Note DATE: 02/27/19 TIME: :19 Assessment/Plan VTE Prophylaxis Risk score (from Ns)>0 risk: 4 SCD applied (from [facility] [place]): No SCD contraindicated: other Pharmacological prophylaxis: heparin Lines/Catheters IV Catheter Type (from [facility]): port A cath Urinary Cath still in place: No Assessment/Plan Hospital Course SUBJECTIVE: Complains of left rib cage pain with coughing. Denies any rectal bleeding. OBJECTIVE: Physical Exam General: Obese build 53 year-old male lying in bed in no apparent distress. HEENT: Normocephalic, atraumatic. Eyes: Anicteric sclerae, conjunctivae clear. ENT: Nasal septum midline, oral mucosa moist. Neck supple, no JVD noticed. Respiratory: Bilaterally clear breath sounds. No use of accessory muscles of respiration. No adventitious breath sounds. Cardiovascular: S1, S2 heard. Regular rate and rhythm. Abdomen: Soft and nondistended. LUQ tenderness. Bowel sounds positive in all 4 quadrants. Genitourinary: Deferred. Extremities: No cyanosis, no clubbing, no edema. Peripheral pulses palpable. Neurologic: Cranial nerves II through XII grossly intact. The patient is awake, alert, and oriented. Skin: Normal skin turgor. No skin rashes. Labs & Vitals per chart ASSESSMENT & PLAN 53-year-old male with past medical history of hemorrhoidal bleeding status post recent hemorrhoidectomy, iron deficiency anemia, and recent E. coli ESBL and Citrobacter bacteremia who presented to the emergency room complaining of chest pain or shortness of breath with signs of septic shock on pressor support. 1. Status post septic shock. Status post IV pressors. Culture showing E. coli ESBL bacteremia. Continue antimicrobials as per ID. 2. Multiple low-attenuation splenic lesions. Splenic abscess versus infarcts, probably secondary to recent bacteremia. Transthoracic echocardiogram negative for any embolic source. Continue antimicrobials as per ID. 3. Possible underlying infective endocarditis. ASHLEY criteria: Positive if 2 major criteria; or 1 major + 3 minor criteria or; 5 minor criteria. Major criteria: i) Typical microorganisms consistent with infective endocarditis from 2 separate blood cultures: No ii) Persistently positive blood culture: No. iii) Echocardiogram positive for infective endocarditis: No on TTE. iv) New valvular regurgitation: Yes Minor criteria: i) Predisposition: No. ii) Fever >100.4: Yes iii) Vascular phenomena: Yes iv) Immunologic phenomena: No v) Microbiologic evidence: Yes 4. Chronic rectal bleeding. Monitor H&H closely. Transfuse blood products as needed. 5. Iron deficiency. Continue iron supplements. 6. Fluids, electrolytes, and nutrition. Regular diet. 7. DVT prophylaxis. SQ heparin. 8. Plan. Continue antimicrobials as per ID. Obtain cardiology consult for KALEY. Await clinical improvement before discharging the patient. The patient was seen in collaboration with Dr. Pepper. Result Diagram: 02/27/1943102/27/192 Results 24hrs Laboratory Tests Test 02/27/19 04:32 02/27/19 04:33 White Blood Count 8.1 Red Blood Count 4.14 L Hemoglobin 10.0 L Hematocrit 32.9 L Mean Corpuscular Volume 79.5 L Mean Corpuscular Hemoglobin 24.2 L Mean Corpuscular Hemoglobin Concent 30.4 L Red Cell Distribution Width 21.4 H Platelet Count 260 Mean Platelet Volume Immature Granulocytes % 1.000 H Neutrophils % 71.0 Lymphocytes % 13.7 L Monocytes % 9.3 Eosinophils % 4.5 Basophils % 0.5 Nucleated Red Blood Cells % 0.0 Immature Granulocytes # 0.080 H Neutrophils # 5.7 Lymphocytes # 1.1 Monocytes # 0.8 Eosinophils # 0.4 Basophils # 0.0 Nucleated Red Blood Cells # 0.0 Sodium Level 138 Potassium Level 4.2 Chloride Level 103 Carbon Dioxide Level 29 Anion Gap 6 Blood Urea Nitrogen 10 Creatinine 0.62 Est Glomerular Filtrat Rate mL/min > 60 Glucose Level 101 Calcium Level 8.7 Phosphorus Level 3.4 Magnesium Level 2.0 Exam/Review of Systems Exam Vitals Vital Signs Date Temp Pulse Resp B/P (MAP) Pulse Ox O2 O2 Flow FiO2 Time Delivery Rate 02/27/19 Nasal 2.0 08:00 Cannula 02/27/19 98.4 74 16 111/69 96 07:20 (83) Intake and Output 02/26/19 02/26/19 02/27/19 1515:00 23:00 07:00 IntakeIntake Total 590 ml 1370 ml 530 ml OutputOutput Total 1700 ml BalanceBalance 590 ml 1370 ml -1170 ml Results Results 24hrs Laboratory Tests Test 02/27/19 04:32 02/27/19 04:33 White Blood Count 8.1 Red Blood Count 4.14 L Hemoglobin 10.0 L Hematocrit 32.9 L Mean Corpuscular Volume 79.5 L Mean Corpuscular Hemoglobin 24.2 L Mean Corpuscular Hemoglobin Concent 30.4 L Red Cell Distribution Width 21.4 H Platelet Count 260 Mean Platelet Volume Immature Granulocytes % 1.000 H Neutrophils % 71.0 Lymphocytes % 13.7 L Monocytes % 9.3 Eosinophils % 4.5 Basophils % 0.5 Nucleated Red Blood Cells % 0.0 Immature Granulocytes # 0.080 H Neutrophils # 5.7 Lymphocytes # 1.1 Monocytes # 0.8 Eosinophils # 0.4 Basophils # 0.0 Nucleated Red Blood Cells # 0.0 Sodium Level 138 Potassium Level 4.2 Chloride Level 103 Carbon Dioxide Level 29 Anion Gap 6 Blood Urea Nitrogen 10 Creatinine 0.62 Est Glomerular Filtrat Rate mL/min > 60 Glucose Level 101 Calcium Level 8.7 Phosphorus Level 3.4 Magnesium Level 2.0 Medications Medication Current Medications IV Flush (NS 3 ml) 3 ml PER PROTOCOL IV Last administered on 02/25/19 08:55; Admin Dose 3 ML; Start 02/21/19 at 01:30 Ondansetron HCl (Zofran Inj) 4 mg Q6H PRN IV NAUSEA/VOMITING; Start 02/21/19 at 01:30 Acetaminophen (Tylenol Tab) 650 mg Q6H PRN PO .PAIN 1-3 OR TEMP Last administered on 02/21/19 20:56; Admin Dose 650 MG; Start 02/21/19 at 01:30 Acetaminophen/ Hydrocodone Bitart ([place] (5/325)) 1 tab Q6H PRN PO .MOD PAIN 4- 6 Last administered on 02/27/19 09:20; Admin Dose 1 TAB; Start 02/21/19 at 01:30 Morphine Sulfate (morphine) 2 mg Q4H PRN IV .SEVERE PAIN 7-10 Last administered on 02/27/19 08:29; Admin Dose 2 MG; Start 02/21/19 at 01:30 Docusate Sodium (Colace) 100 mg Q12H PRN PO .CONSTIPATION Last administered on 02/25/19 08:51; Admin Dose 100 MG; Start 02/21/19 at 01:30 Magnesium Hydroxide (Milk Of Mag) 30 ml DAILY PRN PO .CONSTIPATION; Start 02/21/19 at 01:30 Heparin Sodium (Porcine) (Heparin (5000 Units/1ml)) 5,000 unit Q12 SC Last administered on 02/27/19 08:14; Admin Dose 5,000 UNIT; Start 02/21/19 at 09:00 Albuterol/ Ipratropium (Duoneb) 3 ml Q4H RESP THERAPY PRN HHN SHORTNESS OF BREATH; Start 02/21/19 at 01:30 Hydralazine HCl (Apresoline) 10 mg Q6H PRN IV ELEVATED BLOOD PRESSURE; Start 02/21/19 at 01:30 Nitroglycerin (Nitroglycerin (Sl Tab) 0.4 Mg) 1 tab Q5M PRN SL ANGINA; Start 02/21/19 at 01:30 Ferrous Sulfate (Ferrous Sulfate (Ec)) 325 mg DAILY PO Last administered on 02/27/19 08:12; Admin Dose 325 MG; Start 02/21/19 at 09:00 Meropenem/Sodium Chloride 50 ml @ 100 mls/hr Q8H IVPB Last administered on 02/27/19 09:16; Admin Dose 100 MLS/HR; Start 02/21/19 at 01:30 Guaifenesin (Robitussin Liquid Cup) 200 mg Q4H PRN PO COUGH Last administered on 02/27/19 09:20; Admin Dose 200 MG; Start 02/22/19 at 14:30 Polyethylene Glycol (Miralax) 17 gm BID PO Last administered on 02/27/19 08:12; Admin Dose 17 GM; Start 02/24/19 at 21:00 Bisacodyl (Dulcolax) 10 mg DAILY PRN PO CONSTIPATION; Start 02/24/19 at 15:30 Famotidine (Pepcid) 20 mg BID PO Last administered on 02/27/19 08:12; Admin Dose 20 MG; Start 02/26/19 at 21:00 JIMENA STONE NP Feb 27, 2019 11:20
[2019-02-27 14:12] VITALS: BP 106/69; PULSE 80; RESP 22
--- NOTE | 2019-02-27 15:16 | CONS ---
Consultation Date/Type/Reason Admit Date/Time Feb 20, 2019 at 23:21 Initial Consult Date Type of Consult SUBJECTIVE: Pt is awake, alert, afebrile. VS: stable T: 98.2 LABS: Reviewed. WBC- 8.1 MICROBIOLOGY: Blood culture on admission grew E. coli ESBL, Repeat blood cultures negative Antimicrobials: Meropenem Indwelling: Right chest Port-A-Cath CT abdomen and pelvis on admission revealed multiple low-attenuation splenic lesions which are new compared to prior examination and may be infectious /inflammatory in etiology such as abscesses bibasilar airspace disease which may represent atelectasis Physical examination: GEN: This is well-nourished ill-appearing middle-aged man, who is in no distress. HENT: Head atraumatic normocephalic; neck is supple PULM: chest rise symmetrical breath sounds diminished to bases Heart: S1-S2 Abdomen: obese, soft, bowel sounds present Extremities with trace edema Assessment: 1. Sepsis with recurrent bacteremia 2. Questionable splenic abscesses 3. Questionable pneumonia 4. Questionable enterocolitis 5. Chronic anemia 6. History of E. coli ESBL and Citrobacter bacteremia on January 31, 2019 7. Status post open hemorrhoidectomy 01/27/19 Plan: Pt is stable. Continue current abx treatment. Plan for KALEY Date/Time of Note DATE: 02/27/19 TIME: 15:13 Exam/Review of Systems Exam Vitals Vital Signs Date Temp Pulse Resp B/P (MAP) Pulse Ox O2 O2 Flow FiO2 Time Delivery Rate 02/27/19 98.2 80 22 106/69 95 Room Air 14:12 (81) 02/27/19 2.0 08:00 Intake and Output 02/26/19 02/26/19 02/27/19 1515:00 23:00 07:00 IntakeIntake Total 590 ml 1370 ml 530 ml OutputOutput Total 1700 ml BalanceBalance 590 ml 1370 ml -1170 ml Results Result Diagram: 02/27/19 0432 02/27/19 0432 Results 24hrs Laboratory Tests Test 02/27/19 04:32 02/27/19 04:33 White Blood Count 8.1 Red Blood Count 4.14 L Hemoglobin 10.0 L Hematocrit 32.9 L Mean Corpuscular Volume 79.5 L Mean Corpuscular Hemoglobin 24.2 L Mean Corpuscular Hemoglobin Concent 30.4 L Red Cell Distribution Width 21.4 H Platelet Count 260 Mean Platelet Volume Immature Granulocytes % 1.000 H Neutrophils % 71.0 Lymphocytes % 13.7 L Monocytes % 9.3 Eosinophils % 4.5 Basophils % 0.5 Nucleated Red Blood Cells % 0.0 Immature Granulocytes # 0.080 H Neutrophils # 5.7 Lymphocytes # 1.1 Monocytes # 0.8 Eosinophils # 0.4 Basophils # 0.0 Nucleated Red Blood Cells # 0.0 Sodium Level 138 Potassium Level 4.2 Chloride Level 103 Carbon Dioxide Level 29 Anion Gap 6 Blood Urea Nitrogen 10 Creatinine 0.62 Est Glomerular Filtrat Rate mL/min > 60 Glucose Level 101 Calcium Level 8.7 Phosphorus Level 3.4 Magnesium Level 2.0 Medications Medication Current Medications IV Flush (NS 3 ml) 3 ml PER PROTOCOL IV Last administered on 02/25/19 08:55; Admin Dose 3 ML; Start 02/21/19 at 01:30 Ondansetron HCl (Zofran Inj) 4 mg Q6H PRN IV NAUSEA/VOMITING; Start 02/21/19 at 01:30 Acetaminophen (Tylenol Tab) 650 mg Q6H PRN PO .PAIN 1-3 OR TEMP Last administered on 02/21/19 20:56; Admin Dose 650 MG; Start 02/21/19 at 01:30 Acetaminophen/ Hydrocodone Bitart ([place] (5/325)) 1 tab Q6H PRN PO .MOD PAIN 4- 6 Last administered on 02/27/19 09:20; Admin Dose 1 TAB; Start 02/21/19 at 01:30 Morphine Sulfate (morphine) 2 mg Q4H PRN IV .SEVERE PAIN 7-10 Last administered on 02/27/19 14:20; Admin Dose 2 MG; Start 02/21/19 at 01:30 Docusate Sodium (Colace) 100 mg Q12H PRN PO .CONSTIPATION Last administered on 02/25/19 08:51; Admin Dose 100 MG; Start 02/21/19 at 01:30 Magnesium Hydroxide (Milk Of Mag) 30 ml DAILY PRN PO .CONSTIPATION; Start 02/21/19 at 01:30 Heparin Sodium (Porcine) (Heparin (5000 Units/1ml)) 5,000 unit Q12 SC Last administered on 02/27/19 08:14; Admin Dose 5,000 UNIT; Start 02/21/19 at 09:00 Albuterol/ Ipratropium (Duoneb) 3 ml Q4H RESP THERAPY PRN HHN SHORTNESS OF BREATH; Start 02/21/19 at 01:30 Hydralazine HCl (Apresoline) 10 mg Q6H PRN IV ELEVATED BLOOD PRESSURE; Start 02/21/19 at 01:30 Nitroglycerin (Nitroglycerin (Sl Tab) 0.4 Mg) 1 tab Q5M PRN SL ANGINA; Start 02/21/19 at 01:30 Ferrous Sulfate (Ferrous Sulfate (Ec)) 325 mg DAILY PO Last administered on 02/27/19 08:12; Admin Dose 325 MG; Start 02/21/19 at 09:00 Meropenem/Sodium Chloride 50 ml @ 100 mls/hr Q8H IVPB Last administered on 02/27/19at 09:16; Admin Dose 100 MLS/HR; Start 02/21/19 at 01:30 Guaifenesin (Robitussin Liquid Cup) 200 mg Q4H PRN PO COUGH Last administered on 02/27/19 09:20; Admin Dose 200 MG; Start 02/22/19 at 14:30 Polyethylene Glycol (Miralax) 17 gm BID PO Last administered on 02/27/19 08:12; Admin Dose 17 GM; Start 02/24/19 at 21:00 Bisacodyl (Dulcolax) 10 mg DAILY PRN PO CONSTIPATION; Start 02/24/19 at 15:30 Famotidine (Pepcid) 20 mg BID PO Last administered on 02/27/19 08:12; Admin Dose 20 MG; Start 02/26/19 at 21:00 Ketorolac Tromethamine (Toradol) 30 mg Q6H PRN IV PAIN LEVEL 1-3; Start 02/27/19 at 13:00; Stop 03/01/19 at 13:00 DANIEL PORTILLO Feb 27, 2019 15:16
[2019-02-27] MEDS: KETOROLAC 30 MG INJ IV PRN (16:59)
--- NOTE | 2019-02-27 17:10 | CONS ---
Assessment/Plan Assessment/Plan Assessment/Plan (Daily) Abnormal electrocardiogram Bacteremia H/O ESBL E. coli and Citrobacter bacteremia Anemia GI Bleed S/p hemorrhoidectomy Continue antibiotics Continue GI and DVT Prophylaxis Continue ferrous sulphate Consultation Date/Type/Reason Admit Date/Time Feb 20, 2019 at 23:21 Type of Consult Cardiology Date/Time of Note DATE: 02/27/19 TIME: 17:07 Past Medical History Home Meds Active Scripts Ciprofloxacin Hcl* (Ciprofloxacin Hcl*) 250 Mg Tablet, 250 MG PO BID for 4 Days, #8 TAB Prov:JOSE R MARIE 02/03/19 Hydrocodone Bit-Acetaminophen (Hydrocodone Bit-APAP) 5-325MG Tablet, 1 TAB PO Q6H PRN for PAIN LEVEL 6-10, #30 TAB Prov:JOSE R MARIE 02/03/19 Pantoprazole* (Protonix*) 40 Mg Tablet.dr, 40 MG PO DAILY for 30 Days, #30 TAB 2 Refills Prov:ALYCE DECKER 01/08/19 Reported Medications Ferrous Sulfate* (Ferrous Sulfate*) 325 Mg Tabec, 325 MG PO DAILY, TAB 01/25/19 Medications Current Medications IV Flush (NS 3 ml) 3 ml PER PROTOCOL IV Last administered on 02/25/19 08:55; Admin Dose 3 ML; Start 02/21/19 at 01:30 Ondansetron HCl (Zofran Inj) 4 mg Q6H PRN IV NAUSEA/VOMITING; Start 02/21/19 at 01:30 Acetaminophen (Tylenol Tab) 650 mg Q6H PRN PO .PAIN 1-3 OR TEMP Last ad ministered on 02/21/19at 20:56; Admin Dose 650 MG; Start 02/21/19 at 01:30 Acetaminophen/ Hydrocodone Bitart ([place] (5/325)) 1 tab Q6H PRN PO .MOD PAIN 4- 6 Last administered on 02/27/19 09:20; Admin Dose 1 TAB; Start 02/21/19 at 01:30 Morphine Sulfate (morphine) 2 mg Q4H PRN IV .SEVERE PAIN 7-10 Last administered on 02/27/19 14:20; Admin Dose 2 MG; Start 02/21/19 at 01:30 Docusate Sodium (Colace) 100 mg Q12H PRN PO .CONSTIPATION Last administered on 02/25/19 08:51; Admin Dose 100 MG; Start 02/21/19 at 01:30 Magnesium Hydroxide (Milk Of Mag) 30 ml DAILY PRN PO .CONSTIPATION; Start 02/21/19 at 01:30 Heparin Sodium (Porcine) (Heparin (5000 Units/1ml)) 5,000 unit Q12 SC Last administered on 02/27/19 08:14; Admin Dose 5,000 UNIT; Start 02/21/19 at 09:00 Albuterol/ Ipratropium (Duoneb) 3 ml Q4H RESP THERAPY PRN HHN SHORTNESS OF BREATH; Start 02/21/19 at 01:30 Hydralazine HCl (Apresoline) 10 mg Q6H PRN IV ELEVATED BLOOD PRESSURE; Start 02/21/19 at 01:30 Nitroglycerin (Nitroglycerin (Sl Tab) 0.4 Mg) 1 tab Q5M PRN SL ANGINA; Start 02/21/19 at 01:30 Ferrous Sulfate (Ferrous Sulfate (Ec)) 325 mg DAILY PO Last administered on 02/27/19 08:12; Admin Dose 325 MG; Start 02/21/19 at 09:00 Meropenem/Sodium Chloride 50 ml @ 100 mls/hr Q8H IVPB Last administered on 02/27/19 09:16; Admin Dose 100 MLS/HR; Start 02/21/19 at 01:30 Guaifenesin (Robitussin Liquid Cup) 200 mg Q4H PRN PO COUGH Last administered on 02/27/19 16:58; Admin Dose 200 MG; Start 02/22/19 at 14:30 Polyethylene Glycol (Miralax) 17 gm BID PO Last administered on 02/27/19 08:12; Admin Dose 17 GM; Start 02/24/19 at 21:00 Bisacodyl (Dulcolax) 10 mg DAILY PRN PO CONSTIPATION; Start 02/24/19 at 15:30 Famotidine (Pepcid) 20 mg BID PO Last administered on 02/27/19 08:12; Admin Dose 20 MG; Start 02/26/19 at 21:00 Ketorolac Tromethamine (Toradol) 30 mg Q6H PRN IV PAIN LEVEL 1-3 Last administered on 02/27/19 16:59; Admin Dose 30 MG; Start 02/27/19 at 13:00; Stop 03/01/19 at 13:00 Allergies: Coded Allergies: No Known Allergy (Unverified , 01/04/19) Past Surgical History Past Surgical Hx: no surgical history, other (Hemorrhoid, right shoulder, knee) Social History Alcohol Use: none Smoking Status: Never smoker Drug Use: none Exam/Review of Systems Vital Signs Vitals Vital Signs Date Temp Pulse Resp B/P (MAP) Pulse Ox O2 O2 Flow FiO2 Time Delivery Rate 02/27/19 98.2 80 22 106/69 95 Room Air 14:12 (81) 02/27/19 2.0 08:00 Intake and Output 02/26/19 02/26/19 02/27/19 1515:00 23:00 07:00 IntakeIntake Total 590 ml 1370 ml 530 ml OutputOutput Total 1700 ml BalanceBalance 590 ml 1370 ml -1170 ml Exam Constitutional: alert, oriented Head: normocephalic, atraumatic Respiratory: clear to auscultation Cardiovascular: regular rate and rhythm (no m/r/g) Gastrointestinal: soft, non-tender Labs Result Diagram: 02/27/19 0432 02/27/19 0432 Results 24hrs Laboratory Tests Test 02/27/19 04:32 02/27/19 04:33 White Blood Count 8.1 Red Blood Count 4.14 L Hemoglobin 10.0 L Hematocrit 32.9 L Mean Corpuscular Volume 79.5 L Mean Corpuscular Hemoglobin 24.2 L Mean Corpuscular Hemoglobin Concent 30.4 L Red Cell Distribution Width 21.4 H Platelet Count 260 Mean Platelet Volume Immature Granulocytes % 1.000 H Neutrophils % 71.0 Lymphocytes % 13.7 L Monocytes % 9.3 Eosinophils % 4.5 Basophils % 0.5 Nucleated Red Blood Cells % 0.0 Immature Granulocytes # 0.080 H Neutrophils # 5.7 Lymphocytes # 1.1 Monocytes # 0.8 Eosinophils # 0.4 Basophils # 0.0 Nucleated Red Blood Cells # 0.0 Sodium Level 138 Potassium Level 4.2 Chloride Level 103 Carbon Dioxide Level 29 Anion Gap 6 Blood Urea Nitrogen 10 Creatinine 0.62 Est Glomerular Filtrat Rate mL/min > 60 Glucose Level 101 Calcium Level 8.7 Phosphorus Level 3.4 Magnesium Level 2.0 Medications Medications Current Medications IV Flush (NS 3 ml) 3 ml PER PROTOCOL IV Last administered on 02/25/19 08:55; Admin Dose 3 ML; Start 02/21/19 at 01:30 Ondansetron HCl (Zofran Inj) 4 mg Q6H PRN IV NAUSEA/VOMITING; Start 02/21/19 at 01:30 Acetaminophen (Tylenol Tab) 650 mg Q6H PRN PO .PAIN 1-3 OR TEMP Last administered on 02/21/19 20:56; Admin Dose 650 MG; Start 02/21/19 at 01:30 Acetaminophen/ Hydrocodone Bitart ([place] (5/325)) 1 tab Q6H PRN PO .MOD PAIN 4- 6 Last administered on 02/27/19 09:20; Admin Dose 1 TAB; Start 02/21/19 at 01:30 Morphine Sulfate (morphine) 2 mg Q4H PRN IV .SEVERE PAIN 7-10 Last administered on 02/27/19 14:20; Admin Dose 2 MG; Start 02/21/19 at 01:30 Docusate Sodium (Colace) 100 mg Q12H PRN PO .CONSTIPATION Last administered on 02/25/19 08:51; Admin Dose 100 MG; Start 02/21/19 at 01:30 Magnesium Hydroxide (Milk Of Mag) 30 ml DAILY PRN PO .CONSTIPATION; Start 02/21/19 at 01:30 Heparin Sodium (Porcine) (Heparin (5000 Units/1ml)) 5,000 unit Q12 SC Last administered on 02/27/19 08:14; Admin Dose 5,000 UNIT; Start 02/21/19 at 09:00 Albuterol/ Ipratropium (Duoneb) 3 ml Q4H RESP THERAPY PRN HHN SHORTNESS OF BREATH; Start 02/21/19 at 01:30 Hydralazine HCl (Apresoline) 10 mg Q6H PRN IV ELEVATED BLOOD PRESSURE; Start 02/21/19 at 01:30 Nitroglycerin (Nitroglycerin (Sl Tab) 0.4 Mg) 1 tab Q5M PRN SL ANGINA; Start 02/21/19 at 01:30 Ferrous Sulfate (Ferrous Sulfate (Ec)) 325 mg DAILY PO Last administered on 02/27/19 08:12; Admin Dose 325 MG; Start 02/21/19 at 09:00 Meropenem/Sodium Chloride 50 ml @ 100 mls/hr Q8H IVPB Last administered on 02/27/19 09:16; Admin Dose 100 MLS/HR; Start 02/21/19 at 01:30 Guaifenesin (Robitussin Liquid Cup) 200 mg Q4H PRN PO COUGH Last administered o n 02/27/19 16:58; Admin Dose 200 MG; Start 02/22/19 at 14:30 Polyethylene Glycol (Miralax) 17 gm BID PO Last administered on 02/27/19 08:12; Admin Dose 17 GM; Start 02/24/19 at 21:00 Bisacodyl (Dulcolax) 10 mg DAILY PRN PO CONSTIPATION; Start 02/24/19 at 15:30 Famotidine (Pepcid) 20 mg BID PO Last administered on 02/27/19 08:12; Admin Dose 20 MG; Start 02/26/19 at 21:00 Ketorolac Tromethamine (Toradol) 30 mg Q6H PRN IV PAIN LEVEL 1-3 Last administered on 02/27/19 16:59; Admin Dose 30 MG; Start 02/27/19 at 13:00; Stop 03/01/19 at 13:00 BOOKER LOPEZ M.D. Feb 27, 2019 17:10
[2019-02-27 19:27] VITALS: BP 110/58; PULSE 81; RESP 18
[2019-02-28] MEDS: MEROPENEM 1 GM/50ML(PMX) 50 ML IVPB SCH ×3 (01:29→17:35)
[2019-02-28] MEDS: morphine 2 MG INJ IV PRN ×3 (01:31→20:17)
[2019-02-28 01:34] VITALS: BP 103/62; PULSE 70; RESP 18
[2019-02-28] MEDS: GUAIFENESIN 20 MG/ML 5ML CUP PO PRN ×3 (06:15→20:11)
[2019-02-28] MEDS: KETOROLAC 30 MG INJ IV PRN ×3 (06:15→23:48)
--- NOTE | 2019-02-28 07:09 | PN ---
Date/Time of Note Date/Time of Note DATE: 02/28/19 TIME: 07:09 Assessment/Plan VTE Prophylaxis Risk score (from Ns)>0 risk: 6 SCD applied (from [facility] [place] No SCD contraindicated: other Pharmacological prophylaxis: heparin Lines/Catheters IV Catheter Type (from [facility]): port a cath Urinary Cath still in place: No Assessment/Plan Hospital Course SUBJECTIVE: Complains of left rib cage pain with coughing. Denies any rectal bleeding. OBJECTIVE: Physical Exam General: Obese build 53 year-old male lying in bed in no apparent distress. HEENT: Normocephalic, atraumatic. Eyes: Anicteric sclerae, conjunctivae clear. ENT: Nasal septum midline, oral mucosa moist. Neck supple, no JVD noticed. Respiratory: Bilaterally clear breath sounds. No use of accessory muscles of respiration. No adventitious breath sounds. Cardiovascular: S1, S2 heard. Regular rate and rhythm. Abdomen: Soft and nondistended. LUQ tenderness. Bowel sounds positive in all 4 quadrants. Genitourinary: Deferred. Extremities: No cyanosis, no clubbing, no edema. Peripheral pulses palpable. Neurologic: Cranial nerves II through XII grossly intact. The patient is awake, alert, and oriented. Skin: Normal skin turgor. No skin rashes. Labs & Vitals per chart ASSESSMENT & PLAN 53-year-old male with past medical history of hemorrhoidal bleeding status post recent hemorrhoidectomy, iron deficiency anemia, and recent E. coli ESBL and Citrobacter bacteremia who presented to the emergency room complaining of chest pain or shortness of breath with signs of septic shock on pressor support. 1. Status post septic shock. Status post IV pressors. Culture showing E. coli ESBL bacteremia. Continue antimicrobials as per ID. 2. Multiple low-attenuation splenic lesions. Splenic abscess versus infarcts, probably secondary to recent bacteremia. Transthoracic echocardiogram negative for any embolic source. Continue antimicrobials as per ID. 3. Possible underlying infective endocarditis. ASHLEY criteria: Positive if 2 major criteria; or 1 major + 3 minor criteria or; 5 minor criteria. Major criteria: i) Typical microorganisms consistent with infective endocarditis from 2 separate blood cultures: No ii) Persistently positive blood culture: No. iii) Echocardiogram positive for infective endocarditis: No on TTE. iv) New valvular regurgitation: Yes Minor criteria: i) Predisposition: No. ii) Fever >100.4: Yes iii) Vascular phenomena: Yes iv) Immunologic phenomena: No v) Microbiologic evidence: Yes 4. Chronic rectal bleeding. Monitor H&H closely. Transfuse blood products as needed. 5. Iron deficiency. Continue iron supplements. 6. Fluids, electrolytes, and nutrition. Regular diet. 7. DVT prophylaxis. SQ heparin. 8. Plan. Continue antimicrobials as per ID. Plan for KALEY on 03/01/2019. Await clinical improvement before discharging the patient. The patient was seen in collaboration with Dr. Pepper. Result Diagram: 02/28/19 0439 02/28/19 0439 Results 24hrs Laboratory Tests Test 02/28/19 04:39 White Blood Count 7.7 Red Blood Count 4.11 L Hemoglobin 9.9 L Hematocrit 32.9 L Mean Corpuscular Volume 80.0 L Mean Corpuscular Hemoglobin 24.1 L Mean Corpuscular Hemoglobin Concent 30.1 L Red Cell Distribution Width 21.8 H Platelet Count 307 Mean Platelet Volume 11.4 H Immature Granulocytes % 0.400 Neutrophils % 76.1 Lymphocytes % 12.6 L Monocytes % 7.4 Eosinophils % 3.1 Basophils % 0.4 Nucleated Red Blood Cells % 0.0 Immature Granulocytes # 0.030 Neutrophils # 5.9 Lymphocytes # 1.0 Monocytes # 0.6 Eosinophils # 0.2 Basophils # 0.0 Nucleated Red Blood Cells # 0.0 Sodium Level 138 Potassium Level 4.5 Chloride Level 104 Carbon Dioxide Level 30 Anion Gap 4 L Blood Urea Nitrogen 20 Creatinine 0.72 Est Glomerular Filtrat Rate mL/min > 60 Glucose Level 115 Calcium Level 8.7 Phosphorus Level 3.4 Magnesium Level 2.2 Exam/Review of Systems Exam Vitals Vital Signs Date Temp Pulse Resp B/P (MAP) Pulse Ox O2 O2 Flow FiO2 Time Delivery Rate 02/28/19 98.6 70 18 103/62 98 01:34 (76) 02/27/19 Nasal 2.0 20:29 Cannula Intake and Output 02/27/19 02/27/19 02/28/19 1515:00 23:00 07:00 IntakeIntake Total 750 ml 290 ml 50 ml OutputOutput Total 400 ml BalanceBalance 350 ml 290 ml 50 ml Results Results 24hrs Laboratory Tests Test 02/28/19 04:39 White Blood Count 7.7 Red Blood Count 4.11 L Hemoglobin 9.9 L Hematocrit 32.9 L Mean Corpuscular Volume 80.0 L Mean Corpuscular Hemoglobin 24.1 L Mean Corpuscular Hemoglobin Concent 30.1 L Red Cell Distribution Width 21.8 H Platelet Count 307 Mean Platelet Volume 11.4 H Immature Granulocytes % 0.400 Neutrophils % 76.1 Lymphocytes % 12.6 L Monocytes % 7.4 Eosinophils % 3.1 Basophils % 0.4 Nucleated Red Blood Cells % 0.0 Immature Granulocytes # 0.030 Neutrophils # 5.9 Lymphocytes # 1.0 Monocytes # 0.6 Eosinophils # 0.2 Basophils # 0.0 Nucleated Red Blood Cells # 0.0 Sodium Level 138 Potassium Level 4.5 Chloride Level 104 Carbon Dioxide Level 30 Anion Gap 4 L Blood Urea Nitrogen 20 Creatinine 0.72 Est Glomerular Filtrat Rate mL/min > 60 Glucose Level 115 Calcium Level 8.7 Phosphorus Level 3.4 Magnesium Level 2.2 Medications Medication Current Medications IV Flush (NS 3 ml) 3 ml PER PROTOCOL IV Last administered on 02/25/19 08:55; Admin Dose 3 ML; Start 02/21/19 at 01:30 Ondansetron HCl (Zofran Inj) 4 mg Q6H PRN IV NAUSEA/VOMITING; Start 02/21/19 at 01:30 Acetaminophen (Tylenol Tab) 650 mg Q6H PRN PO .PAIN 1-3 OR TEMP Last administe red on 02/21/19 20:56; Admin Dose 650 MG; Start 02/21/19 at 01:30 Acetaminophen/ Hydrocodone Bitart ([place] (5/325)) 1 tab Q6H PRN PO .MOD PAIN 4- 6 Last administered on 02/27/19 09:20; Admin Dose 1 TAB; Start 02/21/19 at 01:30 Morphine Sulfate (morphine) 2 mg Q4H PRN IV .SEVERE PAIN 7-10 Last administered on 02/28/19 01:31; Admin Dose 2 MG; Start 02/21/19 at 01:30 Docusate Sodium (Colace) 100 mg Q12H PRN PO .CONSTIPATION Last administered on 02/25/19 08:51; Admin Dose 100 MG; Start 02/21/19 at 01:30 Magnesium Hydroxide (Milk Of Mag) 30 ml DAILY PRN PO .CONSTIPATION; Start 02/21/19 at 01:30 Heparin Sodium (Porcine) (Heparin (5000 Units/1ml)) 5,000 unit Q12 SC Last administered on 02/27/19at 20:48; Admin Dose 5,000 UNIT; Start 02/21/19 at 09:00 Albuterol/ Ipratropium (Duoneb) 3 ml Q4H RESP THERAPY PRN HHN SHORTNESS OF BREATH; Start 02/21/19 at 01:30 Hydralazine HCl (Apresoline) 10 mg Q6H PRN IV ELEVATED BLOOD PRESSURE; Start 02/21/19 at 01:30 Nitroglycerin (Nitroglycerin (Sl Tab) 0.4 Mg) 1 tab Q5M PRN SL ANGINA; Start 02/21/19 at 01:30 Ferrous Sulfate (Ferrous Sulfate (Ec)) 325 mg DAILY PO Last administered on 02/27/19 08:12; Admin Dose 325 MG; Start 02/21/19 at 09:00 Meropenem/Sodium Chloride 50 ml @ 100 mls/hr Q8H IVPB Last administered on 02/28/19at 01:29; Admin Dose 100 MLS/HR; Start 02/21/19 at 01:30 Guaifenesin (Robitussin Liquid Cup) 200 mg Q4H PRN PO COUGH Last administered on 02/28/19 06:15; Admin Dose 200 MG; Start 02/22/19 at 14:30 Polyethylene Glycol (Miralax) 17 gm BID PO Last administered on 02/27/19at 20:44; Admin Dose 17 GM; Start 02/24/19 at 21:00 Bisacodyl (Dulcolax) 10 mg DAILY PRN PO CONSTIPATION; Start 02/24/19 at 15:30 Famotidine (Pepcid) 20 mg BID PO Last administered on 02/27/19at 20:45; Admin Dose 20 MG; Start 02/26/19 at 21:00 Ketorolac Tromethamine (Toradol) 30 mg Q6H PRN IV PAIN LEVEL 1-3 Last administered on 02/28/19 06:15; Admin Dose 30 MG; Start 02/27/19 at 13:00; Stop 03/01/19 at 13:00 JIMENA STONE NP Feb 28, 2019 07:09
[2019-02-28 07:44] VITALS: BP 106/67; PULSE 76; RESP 18
[2019-02-28] MEDS: FERROUS SULFATE (EC) 325 MG TAB PO SCH (08:49)
[2019-02-28] MEDS: FAMOTIDINE 20 MG TAB PO SCH ×2 (08:49→20:11)
[2019-02-28] MEDS: POLYETHYLENE GLYCOL 17 GM PACKET PO SCH ×2 (08:49→20:16)
[2019-02-28] MEDS: HEPARIN 5,000 UNIT/1 ML VIAL SC SCH ×2 (08:51→20:12)
--- NOTE | 2019-02-28 13:55 | CONS ---
Assessment/Plan Assessment/Plan Assessment/Plan (Daily) Abnormal electrocardiogram Bacteremia H/O ESBL E. coli and Citrobacter bacteremia Anemia GI Bleed S/p hemorrhoidectomy Continue antibiotics Continue GI and DVT Prophylaxis Continue ferrous sulphate Consultation Date/Type/Reason Admit Date/Time Feb 20, 2019 at 23:21 Initial Consult Date Type of Consult Cardiology Date/Time of Note DATE: 02/28/19 TIME: 13:54 Exam/Review of Systems Vital Signs Vitals Vital Signs Date Temp Pulse Resp B/P (MAP) Pulse Ox O2 O2 Flow FiO2 Time Delivery Rate 02/28/19 Nasal 2.0 07:54 Cannula 02/28/19 98.5 76 18 106/67 98 07:44 (80) Intake and Output 02/27/19 02/27/19 02/28/19 1515:00 23:00 07:00 IntakeIntake Total 750 ml 290 ml 50 ml OutputOutput Total 400 ml BalanceBalance 350 ml 290 ml 50 ml Exam Exam Constitutional: alert, oriented Head: normocephalic, atraumatic Respiratory: clear to auscultation Cardiovascular: regular rate and rhythm (no m/r/g) Gastrointestinal: soft, non-tender Labs Result Diagram: 02/28/19 0439 02/28/19 0439 Results 24hrs Laboratory Tests Test 02/28/19 04:39 White Blood Count 7.7 Red Blood Count 4.11 L Hemoglobin 9.9 L Hematocrit 32.9 L Mean Corpuscular Volume 80.0 L Mean Corpuscular Hemoglobin 24.1 L Mean Corpuscular Hemoglobin Concent 30.1 L Red Cell Distribution Width 21.8 H Platelet Count 307 Mean Platelet Volume 11.4 H Immature Granulocytes % 0.400 Neutrophils % 76.1 Lymphocytes % 12.6 L Monocytes % 7.4 Eosinophils % 3.1 Basophils % 0.4 Nucleated Red Blood Cells % 0.0 Immature Granulocytes # 0.030 Neutrophils # 5.9 Lymphocytes # 1.0 Monocytes # 0.6 Eosinophils # 0.2 Basophils # 0.0 Nucleated Red Blood Cells # 0.0 Sodium Level 138 Potassium Level 4.5 Chloride Level 104 Carbon Dioxide Level 30 Anion Gap 4 L Blood Urea Nitrogen 20 Creatinine 0.72 Est Glomerular Filtrat Rate mL/min > 60 Glucose Level 115 Calcium Level 8.7 Phosphorus Level 3.4 Magnesium Level 2.2 Medications Medications Current Medications IV Flush (NS 3 ml) 3 ml PER PROTOCOL IV Last administered on 02/25/19 08:55; Admin Dose 3 ML; Start 02/21/19 at 01:30 Ondansetron HCl (Zofran Inj) 4 mg Q6H PRN IV NAUSEA/VOMITING; Start 02/21/19 at 01:30 Acetaminophen (Tylenol Tab) 650 mg Q6H PRN PO .PAIN 1-3 OR TEMP Last administered on 02/21/19 20:56; Admin Dose 650 MG; Start 02/21/19 at 01:30 Acetaminophen/ Hydrocodone Bitart ([place] (5/325)) 1 tab Q6H PRN PO .MOD PAIN 4- 6 Last administered on 02/27/19 09:20; Admin Dose 1 TAB; Start 02/21/19 at 01:30 Morphine Sulfate (morphine) 2 mg Q4H PRN IV .SEVERE PAIN 7-10 Last administered on 02/28/19 01:31; Admin Dose 2 MG; Start 02/21/19 at 01:30 Docusate Sodium (Colace) 100 mg Q12H PRN PO .CONSTIPATION Last administered on 02/25/19 08:51; Admin Dose 100 MG; Start 02/21/19 at 01:30 Magnesium Hydroxide (Milk Of Mag) 30 ml DAILY PRN PO .CONSTIPATION; Start 02/21/19 at 01:30 Heparin Sodium (Porcine) (Heparin (5000 Units/1ml)) 5,000 unit Q12 SC Last administered on 02/28/19 08:51; Admin Dose 5,000 UNIT; Start 02/21/19 at 09:00 Albuterol/ Ipratropium (Duoneb) 3 ml Q4H RESP THERAPY PRN HHN SHORTNESS OF BREATH; Start 02/21/19 at 01:30 Hydralazine HCl (Apresoline) 10 mg Q6H PRN IV ELEVATED BLOOD PRESSURE; Start 02/21/19 at 01:30 Nitroglycerin (Nitroglycerin (Sl Tab) 0.4 Mg) 1 tab Q5M PRN SL ANGINA; Start 02/21/19 at 01:30 Ferrous Sulfate (Ferrous Sulfate (Ec)) 325 mg DAILY PO Last administered on 02/28/19 08:49; Admin Dose 325 MG; Start 02/21/19 at 09:00 Meropenem/Sodium Chloride 50 ml @ 100 mls/hr Q8H IVPB Last administered on 02/28/19 08:49; Admin Dose 100 MLS/HR; Start 02/21/19 at 01:30 Guaifenesin (Robitussin Liquid Cup) 200 mg Q4H PRN PO COUGH Last administered on 02/28/19 06:15; Admin Dose 200 MG; Start 02/22/19 at 14:30 Polyethylene Glycol (Miralax) 17 gm BID PO Last administered on 02/28/19 08:49; Admin Dose 17 GM; Start 02/24/19 at 21:00 Bisacodyl (Dulcolax) 10 mg DAILY PRN PO CONSTIPATION; Start 02/24/19 at 15:30 Famotidine (Pepcid) 20 mg BID PO Last administered on 02/28/19 08:49; Admin Dose 20 MG; Start 02/26/19 at 21:00 Ketorolac Tromethamine (Toradol) 30 mg Q6H PRN IV PAIN LEVEL 1-3 Last administered on 02/28/19 06:15; Admin Dose 30 MG; Start 02/27/19 at 13:00; Stop 03/01/19 at 13:00 BOOKER LOPEZ M.D. Feb 28, 2019 13:55
[2019-02-28 14:48] VITALS: BP 115/65; PULSE 86; RESP 34
--- NOTE | 2019-02-28 15:11 | CONS ---
Consultation Date/Type/Reason Admit Date/Time Feb 20, 2019 at 23:21 Initial Consult Date Type of Consult SUBJECTIVE: Pt is awake, alert, afebrile. VS: stable T: 98.9 LABS: Reviewed. WBC- 7.7 MICROBIOLOGY: Blood culture on admission grew E. coli ESBL, Repeat blood cultures negative Antimicrobials: Meropenem Indwelling: Right chest Port-A-Cath CT abdomen and pelvis on admission revealed multiple low-attenuation splenic lesions which are new compared to prior examination and may be infectious /inflammatory in etiology such as abscesses bibasilar airspace disease which may represent atelectasis Physical examination: GEN: This is well-nourished ill-appearing middle-aged man, who is in no distress. HENT: Head atraumatic normocephalic; neck is supple PULM: chest rise symmetrical breath sounds diminished to bases Heart: S1-S2 Abdomen: obese, soft, bowel sounds present Extremities with trace edema Assessment: 1. Sepsis with recurrent bacteremia 2. Questionable splenic abscesses 3. Questionable pneumonia 4. Questionable enterocolitis 5. Chronic anemia 6. History of E. coli ESBL and Citrobacter bacteremia on January 31, 2019 7. Status post open hemorrhoidectomy 01/27/19 Plan: Pt is stable. Continue current abx treatment. Plan for KALEY Date/Time of Note DATE: 02/28/19 TIME: 15:10 Exam/Review of Systems Exam Vitals Vital Signs Date Temp Pulse Resp B/P (MAP) Pulse Ox O2 O2 Flow FiO2 Time Delivery Rate 02/28/19 98.9 86 34 115/65 95 Room Air 14:48 (82) 02/28/19 2.0 07:54 Intake and Output 02/27/19 02/27/19 02/28/19 1515:00 23:00 07:00 IntakeIntake Total 750 ml 290 ml 50 ml OutputOutput Total 400 ml BalanceBalance 350 ml 290 ml 50 ml Results Result Diagram: 02/28/19 0439 02/28/19 0439 Results 24hrs Laboratory Tests Test 02/28/19 04:39 White Blood Count 7.7 Red Blood Count 4.11 L Hemoglobin 9.9 L Hematocrit 32.9 L Mean Corpuscular Volume 80.0 L Mean Corpuscular Hemoglobin 24.1 L Mean Corpuscular Hemoglobin Concent 30.1 L Red Cell Distribution Width 21.8 H Platelet Count 307 Mean Platelet Volume 11.4 H Immature Granulocytes % 0.400 Neutrophils % 76.1 Lymphocytes % 12.6 L Monocytes % 7.4 Eosinophils % 3.1 Basophils % 0.4 Nucleated Red Blood Cells % 0.0 Immature Granulocytes # 0.030 Neutrophils # 5.9 Lymphocytes # 1.0 Monocytes # 0.6 Eosinophils # 0.2 Basophils # 0.0 Nucleated Red Blood Cells # 0.0 Sodium Level 138 Potassium Level 4.5 Chloride Level 104 Carbon Dioxide Level 30 Anion Gap 4 L Blood Urea Nitrogen 20 Creatinine 0.72 Est Glomerular Filtrat Rate mL/min > 60 Glucose Level 115 Calcium Level 8.7 Phosphorus Level 3.4 Magnesium Level 2.2 Medications Medication Current Medications IV Flush (NS 3 ml) 3 ml PER PROTOCOL IV Last administered on 02/25/19 08:55; Admin Dose 3 ML; Start 02/21/19 at 01:30 Ondansetron HCl (Zofran Inj) 4 mg Q6H PRN IV NAUSEA/VOMITING; Start 02/21/19 at 01:30 Acetaminophen (Tylenol Tab) 650 mg Q6H PRN PO .PAIN 1-3 OR TEMP Last ad ministered on 02/21/19 20:56; Admin Dose 650 MG; Start 02/21/19 at 01:30 Acetaminophen/ Hydrocodone Bitart ([place] (5/325)) 1 tab Q6H PRN PO .MOD PAIN 4- 6 Last administered on 02/27/19 09:20; Admin Dose 1 TAB; Start 02/21/19 at 01:30 Morphine Sulfate (morphine) 2 mg Q4H PRN IV .SEVERE PAIN 7-10 Last administered on 02/28/19 14:59; Admin Dose 2 MG; Start 02/21/19 at 01:30 Docusate Sodium (Colace) 100 mg Q12H PRN PO .CONSTIPATION Last administered on 02/25/19 08:51; Admin Dose 100 MG; Start 02/21/19 at 01:30 Magnesium Hydroxide (Milk Of Mag) 30 ml DAILY PRN PO .CONSTIPATION; Start 02/21/19 at 01:30 Heparin Sodium (Porcine) (Heparin (5000 Units/1ml)) 5,000 unit Q12 SC Last administered on 02/28/19 08:51; Admin Dose 5,000 UNIT; Start 02/21/19 at 09:00 Albuterol/ Ipratropium (Duoneb) 3 ml Q4H RESP THERAPY PRN HHN SHORTNESS OF BREATH; Start 02/21/19 at 01:30 Hydralazine HCl (Apresoline) 10 mg Q6H PRN IV ELEVATED BLOOD PRESSURE; Start 02/21/19 at 01:30 Nitroglycerin (Nitroglycerin (Sl Tab) 0.4 Mg) 1 tab Q5M PRN SL ANGINA; Start 02/21/19 at 01:30 Ferrous Sulfate (Ferrous Sulfate (Ec)) 325 mg DAILY PO Last administered on 02/28/19 08:49; Admin Dose 325 MG; Start 02/21/19 at 09:00 Meropenem/Sodium Chloride 50 ml @ 100 mls/hr Q8H IVPB Last administered on 02/28/19at 08:49; Admin Dose 100 MLS/HR; Start 02/21/19 at 01:30 Guaifenesin (Robitussin Liquid Cup) 200 mg Q4H PRN PO COUGH Last administered on 02/28/19at 15:04; Admin Dose 200 MG; Start 02/22/19 at 14:30 Polyethylene Glycol (Miralax) 17 gm BID PO Last administered on 02/28/19 08:49; Admin Dose 17 GM; Start 02/24/19 at 21:00 Bisacodyl (Dulcolax) 10 mg DAILY PRN PO CONSTIPATION; Start 02/24/19 at 15:30 Famotidine (Pepcid) 20 mg BID PO Last administered on 02/28/19 08:49; Admin Dose 20 MG; Start 02/26/19 at 21:00 Ketorolac Tromethamine (Toradol) 30 mg Q6H PRN IV PAIN LEVEL 1-3 Last administered on 02/28/19 06:15; Admin Dose 30 MG; Start 02/27/19 at 13:00; Stop 03/01/19 at 13:00 DANIEL PORTILLO 16, 2019 15:11
[2019-02-28 19:29] VITALS: BP 105/63; PULSE 85; RESP 30
[2019-03-01 01:05] VITALS: BP 96/51; PULSE 75; RESP 24
[2019-03-01] MEDS: MEROPENEM 1 GM/50ML(PMX) 50 ML IVPB SCH ×3 (01:35→18:04)
[2019-03-01] MEDS: morphine 2 MG INJ IV PRN ×4 (04:13→23:18)
[2019-03-01] MEDS: KETOROLAC 30 MG INJ IV PRN (06:38)
--- NOTE | 2019-03-01 07:31 | CONS ---
DATE OF ADMISSION: 02/20/2019 DATE OF CONSULTATION: 02/26/2019 TYPE OF CONSULTATION: Pulmonary. REASON FOR CONSULTATION: Bacteremia, assess for endocarditis. REQUESTING PHYSICIAN: Osman Hernández MD and Maddie Pepper MD, from the hospitalist service. HISTORY OF PRESENT ILLNESS: Mr. Garcia is a 53 male with a history of hemorrhoidal bleed ing, status post recent hemorrhoidectomy, iron deficiency anemia, E. coli ESBL infection, who initial ly complaints of chest pain, shortness of breath and signs of septic shock and required pressur e support. The patient had blood cultures drawn which have returned positive, growing E. coli. The patient placed on broad spectrum antibiotics, has been evaluated by the infectious disease service an d underwent a transthoracic echo revealing no definite vegetations. The patient has had defervescenc e of white blood cell count and the most recent blood cultures at this time from 02/22 remain negativ e from 02/20 were positive. The patient additionally underwent an abdominal pelvic CT on 02/20 that revealed low attenuation hepatic lesions concerning for possible abscesses. Given these findings, I now have been asked to evaluate the patient for the possibility of transesophageal echo to further as sess for the possibility of endocarditis. PAST MEDICAL HISTORY: As above in HPI. MEDICATIONS CURRENTLY IN HOSPITAL: 1. b.i.d. 2. MiraLax. 3. Dulcolax. 4. Heparin 5000 subq 12. 5. Ferrous sulfate 300 mg daily. 6. Zofran. 7. Tylenol. 8. Morphine. 9. Colace. 10. DuoNeb. 11. Hydralazine p.r.n. 12. Lactulose p.r.n. 13. Meropenem. ALLERGIES: No known drug allergies. SOCIAL HISTORY: No current tobacco, ETOH or illicit drug use. FAMILY HISTORY: No sudden cardiac or early CAD. REVIEW OF SYSTEMS: As above in HPI. CONSTITUTIONAL: No current fevers but fevers on admit on 02/20 up to 103.7. PULMONARY: Positive cough. GASTROINTESTINAL: Possible splenic abscess. GENITOURINARY: No hematuria, dysuria. MUSCULOSKELETAL: Degenerative joint disease. PSYCHIATRIC: No documented psych history. NEUROLOGICAL: No documented history of CVA. ENDOCRINE: No documented history of diabetes mellitus. PHYSICAL EXAMINATION: VITAL SIGNS: Temperature current 98.3, blood pressure 120/67, pulse 78, respiratory rate 19, saturat ing 98%. GENERAL: The patient is alert, awake, appearing somewhat ill appearing. NECK: JVP of approximately 8 cm of water. CHEST: Fair air movement throughout. HEART: Regular rate and rhythm. Normal S1, S2, I/ systolic murmur. ABDOMEN: Positive bowel sounds, soft. EXTREMITIES: No edema, 1+ pulses bilateral posterior tibial. LABORATORY DATA: As above in HPI mostly from today, white count of 9.5, hemoglobin of 10, platelet c ount 221. Sodium 139, potassium 4.2, creatinine 0.6, BUN 14. INR 1.1. IMAGING STUDIES: Chest x-ray from 02/23 low lung volumes, compressive changes and basilar atelectasi s. Renal ultrasound from 02/22 revealing normal appearance of kidneys, complex cystic structure in t he spleen with internal debris suspicious for liquefying hematoma versus abscess versus infarct. ELECTROCARDIOGRAM: Most recently from 02/21 revealing sinus rhythm, rate of 85, normal axis, normal intervals, borderline inferior Q's. IMPRESSION: 1. Bacteremia, assess for possible intracardiac source of infection or endocarditis. 2. Abnormal electrocardiogram with borderline inferior Q's, but no signs of progression of significa nt heart block or anything being indicative of a myocardial spread of infection. 3. Possible splenic abscess, question embolic source. 4. Recent hemorrhoidectomy. 5. Leukocytosis with defervescence. 6. Fevers with defervescence, on broad spectrum antibiotics. 7. Chronic rectal bleeding. RECOMMENDATIONS: 1. At this time, the patient to remain on antibiotics. 2. The patient's antibiotics should be continuing and should be followed closely. 3. Patient can thus be scheduled for a transesophageal echo to take place next week. The patient is agreeable to the procedure at this time. Thank you for allowing me to take part in the care of this patient. I will continue to follow very c losely with you. Dictated By: MADDIE GUSMAN/TARYN Conf#: [id number] DID#: [id number] CC: MADDIE PEPPER MD; ALYCE DECKER; OSMAN HERNÁNDEZ VETERINARY MEDICINE DOCTOR;*EndCC*
[2019-03-01 07:56] VITALS: BP 104/57; PULSE 72; RESP 20
[2019-03-01] MEDS: HEPARIN 5,000 UNIT/1 ML VIAL SC SCH ×2 (08:25→20:42)
[2019-03-01] MEDS: FAMOTIDINE 20 MG TAB PO SCH ×2 (08:26→20:32)
[2019-03-01] MEDS: POLYETHYLENE GLYCOL 17 GM PACKET PO SCH ×2 (08:26→20:31)
[2019-03-01] MEDS: FERROUS SULFATE (EC) 325 MG TAB PO SCH (08:26)
[2019-03-01 13:17] VITALS: BP 114/65; PULSE 82; RESP 20
--- NOTE | 2019-03-01 13:54 | PN ---
Date/Time of Note Date/Time of Note DATE: 03/01/19 TIME: 13:42 Assessment/Plan VTE [place]axis [place] [facility] [place]: 1 [place] [facility] [place] SCD contraindicated: other Pharmacological prophylaxis: heparin Lines/Catheters IV Catheter Type (from [facility]): portacath Urinary Cath still in place: No Assessment/Plan Hospital Course 1. Status post septic shock. -Status post IV pressors. - Culture showing E. coli ESBL bacteremia. - ABX regimen per ID 2. Multiple low-attenuation splenic lesions. - CT abd 02/20/19: Multiple low attenuation splenic lesions which are new compared to prior examination and may be infectious/inflammatory in etiology such as abscesses. A less likely etiology include splenic infarcts. - Splenic abscess versus infarcts, suspect secondary to recent bacteremia. - Transthoracic echocardiogram negative for any embolic source. 3. Possible underlying infective endocarditis. - tentative plan for KALEY - continue abx 4. Chronic rectal bleeding. - transfuse blood products prn - monitor 5. Iron deficiency. - continue on iron DISPO/PLAN: continue abx. tentative plan for KALEY. analgesics prn. will f/u Discussed plan of care with Dr. Luo Result Diagram: 03/01/19 0433 03/01/19 0433 Results 24hrs Laboratory Tests Test 03/01/19 04:33 03/01/19 04:34 White Blood Count 8.1 Red Blood Count 4.04 L Hemoglobin 9.6 L Hematocrit 32.0 L Mean Corpuscular Volume 79.2 L Mean Corpuscular Hemoglobin 23.8 L Mean Corpuscular Hemoglobin Concent 30.0 L Red Cell Distribution Width 21.8 H Platelet Count 334 Mean Platelet Volume 10.9 H Immature Granulocytes % 0.400 Neutrophils % 78.3 H Lymphocytes % 11.7 L Monocytes % 7.6 Eosinophils % 1.6 Basophils % 0.4 Nucleated Red Blood Cells % 0.0 Immature Granulocytes # 0.030 Neutrophils # 6.4 Lymphocytes # 1.0 Monocytes # 0.6 Eosinophils # 0.1 Basophils # 0.0 Nucleated Red Blood Cells # 0.0 Sodium Level 138 Potassium Level 4.7 Chloride Level 105 Carbon Dioxide Level 28 Anion Gap 5 Blood Urea Nitrogen 23 H Creatinine 1.01 Est Glomerular Filtrat Rate mL/min > 60 Glucose Level 92 Calcium Level 8.7 Phosphorus Level 3.9 Magnesium Level 2.3 Subjective 24 Hr Interval Summary Free Text/Dictation still reports having pain, more on left side of abdomen Exam/Review of Systems Exam Vitals Vital Signs Date Temp Pulse Resp B/P (MAP) Pulse Ox O2 O2 Flow FiO2 Time Delivery Rate 03/01/19 99.0 82 20 114/65 98 13:17 (81) 03/01/19 Nasal 2.0 08:00 Cannula Intake and Output 02/28/19 02/28/19 03/01/19 1515:00 23:00 07:00 IntakeIntake Total 970 ml 920 ml 50 ml BalanceBalance 970 ml 920 ml 50 ml Exam Constitutional: alert, oriented Head: normocephalic Eyes: nl conjunctiva Respiratory: clear to auscultation, normal air movement Cardiovascular: regular rate and rhythm Gastrointestinal: soft, tender Neurological: [employer] II-XII intact, nl mental status, nl speech Skin: nl turgor Constitutional: alert, oriented Head: normocephalic Eyes: nl conjunctiva Respiratory: clear to auscultation, normal air movement Cardiovascular: regular rate and rhythm Gastrointestinal: soft, non-tender Neurological: [employer] II-XII intact, nl mental status, nl speech Skin: nl turgor Results Results 24hrs Laboratory Tests Test 03/01/19 04:33 03/01/19 04:34 White Blood Count 8.1 Red Blood Count 4.04 L Hemoglobin 9.6 L Hematocrit 32.0 L Mean Corpuscular Volume 79.2 L Mean Corpuscular Hemoglobin 23.8 L Mean Corpuscular Hemoglobin Concent 30.0 L Red Cell Distribution Width 21.8 H Platelet Count 334 Mean Platelet Volume 10.9 H Immature Granulocytes % 0.400 Neutrophils % 78.3 H Lymphocytes % 11.7 L Monocytes % 7.6 Eosinophils % 1.6 Basophils % 0.4 Nucleated Red Blood Cells % 0.0 Immature Granulocytes # 0.030 Neutrophils # 6.4 Lymphocytes # 1.0 Monocytes # 0.6 Eosinophils # 0.1 Basophils # 0.0 Nucleated Red Blood Cells # 0.0 Sodium Level 138 Potassium Level 4.7 Chloride Level 105 Carbon Dioxide Level 28 Anion Gap 5 Blood Urea Nitrogen 23 H Creatinine 1.01 Est Glomerular Filtrat Rate mL/min > 60 Glucose Level 92 Calcium Level 8.7 Phosphorus Level 3.9 Magnesium Level 2.3 Medications Medication Current Medications IV Flush (NS 3 ml) 3 ml PER PROTOCOL IV Last administered on 02/25/19 08:55; Admin Dose 3 ML; Start 02/21/19 at 01:30 Ondansetron HCl (Zofran Inj) 4 mg Q6H PRN IV NAUSEA/VOMITING; Start 02/21/19 at 01:30 Acetaminophen (Tylenol Tab) 650 mg Q6H PRN PO .PAIN 1-3 OR TEMP Last administered on 02/21/19 20:56; Admin Dose 650 MG; Start 02/21/19 at 01:30 Acetaminophen/ Hydrocodone Bitart ([place] (5/325)) 1 tab Q6H PRN PO .MOD PAIN 4- 6 Last administered on 02/27/19 09:20; Admin Dose 1 TAB; Start 02/21/19 at 01:30 Morphine Sulfate (morphine) 2 mg Q4H PRN IV .SEVERE PAIN 7-10 Last administered on 03/01/19 04:13; Admin Dose 2 MG; Start 02/21/19 at 01:30 Docusate Sodium (Colace) 100 mg Q12H PRN PO .CONSTIPATION Last administered on 02/25/19 08:51; Admin Dose 100 MG; Start 02/21/19 at 01:30 Magnesium Hydroxide (Milk Of Mag) 30 ml DAILY PRN PO .CONSTIPATION; Start 02/21/19 at 01:30 Heparin Sodium (Porcine) (Heparin (5000 Units/1ml)) 5,000 unit Q12 SC Last administered on 02/28/19 20:12; Admin Dose 5,000 UNIT; Start 02/21/19 at 09:00 Albuterol/ Ipratropium (Duoneb) 3 ml Q4H RESP THERAPY PRN HHN SHORTNESS OF BREATH; Start 02/21/19 at 01:30 Hydralazine HCl (Apresoline) 10 mg Q6H PRN IV ELEVATED BLOOD PRESSURE; Start 02/21/19 at 01:30 Nitroglycerin (Nitroglycerin (Sl Tab) 0.4 Mg) 1 tab Q5M PRN SL ANGINA; Start 02/21/19 at 01:30 Ferrous Sulfate (Ferrous Sulfate (Ec)) 325 mg DAILY PO Last administered on 02/28/19 08:49; Admin Dose 325 MG; Start 02/21/19 at 09:00 Meropenem/Sodium Chloride 50 ml @ 100 mls/hr Q8H IVPB Last administered on 03/01/19 08:35; Admin Dose 100 MLS/HR; Start 02/21/19 at 01:30 Guaifenesin (Robitussin Liquid Cup) 200 mg Q4H PRN PO COUGH Last administered on 02/28/19 20:11; Admin Dose 200 MG; Start 02/22/19 at 14:30 Polyethylene Glycol (Miralax) 17 gm BID PO Last administered on 02/28/19at 08:49; Admin Dose 17 GM; Start 02/24/19 at 21:00 Bisacodyl (Dulcolax) 10 mg DAILY PRN PO CONSTIPATION; Start 02/24/19 at 15:30 Famotidine (Pepcid) 20 mg BID PO Last administered on 02/28/19at 20:11; Admin Dose 20 MG; Start 02/26/19 at 21:00 JANELLE WAGGONER NP Mar 01, 2019 13:53
--- NOTE | 2019-03-01 15:13 | CONS ---
Assessment/Plan Assessment/Plan Hospital Course (Demo Recall) Patient is complaining of left upper quadrant pain no fevers overnight family at bedside Blood culture on admission grew E. coli ESBL, repeat blood cultures negative Antimicrobials: Meropenem Indwelling: Right chest Port-A-Cath CT abdomen and pelvis on admission revealed multiple low-attenuation splenic lesions which are new compared to prior examination and may be infectious/inflammatory in etiology such as abscesses bibasilar airspace disease which may represent atelectasis Physical examination: This is well-nourished ill-appearing middle-aged man who is in no distress. Head atraumatic normocephalic neck is supple chest rise symmetrical breath sounds diminished to bases heart: S1-S2 abdomen obese soft bowel sounds present extremities with trace edema Assessment: 1. S/p sepsis with recurrent bacteremia 2. Questionable splenic abscesses 3. Questionable pneumonia 4. Poss enterocolitis 5. Chronic anemia 6. History of E. coli ESBL and Citrobacter bacteremia on January 31, 2019 7. Status post open hemorrhoidectomy 01/27/19 Plan: Stable, plan for KALEY, repeat CT abdomen DW pt/family Consultation Date/Type/Reason Admit Date/Time Feb 20, 2019 at 23:21 Initial Consult Date Type of Consult id Date/Time of Note DATE: 03/01/19 TIME: 15:12 Exam/Review of Systems Exam Vitals Vital Signs Date Temp Pulse Resp B/P (MAP) Pulse Ox O2 O2 Flow FiO2 Time Delivery Rate 03/01/19 99.0 82 20 114/65 98 13:17 (81) 03/01/19 Nasal 2.0 08:00 Cannula Intake and Output 02/28/19 02/28/19 03/01/19 1515:00 23:00 07:00 IntakeIntake Total 970 ml 920 ml 50 ml BalanceBalance 970 ml 920 ml 50 ml Results Result Diagram: 03/01/19 0433 03/01/19 0433 Results 24hrs Laboratory Tests Test 03/01/19 04:33 03/01/19 04:34 White Blood Count 8.1 Red Blood Count 4.04 L Hemoglobin 9.6 L Hematocrit 32.0 L Mean Corpuscular Volume 79.2 L Mean Corpuscular Hemoglobin 23.8 L Mean Corpuscular Hemoglobin Concent 30.0 L Red Cell Distribution Width 21.8 H Platelet Count 334 Mean Platelet Volume 10.9 H Immature Granulocytes % 0.400 Neutrophils % 78.3 H Lymphocytes % 11.7 L Monocytes % 7.6 Eosinophils % 1.6 Basophils % 0.4 Nucleated Red Blood Cells % 0.0 Immature Granulocytes # 0.030 Neutrophils # 6.4 Lymphocytes # 1.0 Monocytes # 0.6 Eosinophils # 0.1 Basophils # 0.0 Nucleated Red Blood Cells # 0.0 Sodium Level 138 Potassium Level 4.7 Chloride Level 105 Carbon Dioxide Level 28 Anion Gap 5 Blood Urea Nitrogen 23 H Creatinine 1.01 Est Glomerular Filtrat Rate mL/min > 60 Glucose Level 92 Calcium Level 8.7 Phosphorus Level 3.9 Magnesium Level 2.3 Medications Medication Current Medications IV Flush (NS 3 ml) 3 ml PER PROTOCOL IV Last administered on 02/25/19 08:55; Admin Dose 3 ML; Start 02/21/19 at 01:30 Ondansetron HCl (Zofran Inj) 4 mg Q6H PRN IV NAUSEA/VOMITING; Start 02/21/19 at 01:30 Acetaminophen (Tylenol Tab) 650 mg Q6H PRN PO .PAIN 1-3 OR TEMP Last administered on 02/21/19 20:56; Admin Dose 650 MG; Start 02/21/19 at 01:30 Acetaminophen/ Hydrocodone Bitart ([place] (5/325)) 1 tab Q6H PRN PO .MOD PAIN 4- 6 Last administered on 02/27/19 09:20; Admin Dose 1 TAB; Start 02/21/19 at 01:30 Morphine Sulfate (morphine) 2 mg Q4H PRN IV .SEVERE PAIN 7-10 Last administered on 03/01/19 13:43; Admin Dose 2 MG; Start 02/21/19 at 01:30 Docusate Sodium (Colace) 100 mg Q12H PRN PO .CONSTIPATION Last administered on 02/25/19 08:51; Admin Dose 100 MG; Start 02/21/19 at 01:30 Magnesium Hydroxide (Milk Of Mag) 30 ml DAILY PRN PO .CONSTIPATION; Start 02/21/19 at 01:30 Heparin Sodium (Porcine) (Heparin (5000 Units/1ml)) 5,000 unit Q12 SC Last administered on 02/28/19 20:12; Admin Dose 5,000 UNIT; Start 02/21/19 at 09:00 Albuterol/ Ipratropium (Duoneb) 3 ml Q4H RESP THERAPY PRN HHN SHORTNESS OF BREATH; Start 02/21/19 at 01:30 Hydralazine HCl (Apresoline) 10 mg Q6H PRN IV ELEVATED BLOOD PRESSURE; Start 02/21/19 at 01:30 Nitroglycerin (Nitroglycerin (Sl Tab) 0.4 Mg) 1 tab Q5M PRN SL ANGINA; Start 02/21/19 at 01:30 Ferrous Sulfate (Ferrous Sulfate (Ec)) 325 mg DAILY PO Last administered on 02/28/19at 08:49; Admin Dose 325 MG; Start 02/21/19 at 09:00 Meropenem/Sodium Chloride 50 ml @ 100 mls/hr Q8H IVPB Last administered on 03/01/19 08:35; Admin Dose 100 MLS/HR; Start 02/21/19 at 01:30 Guaifenesin (Robitussin Liquid Cup) 200 mg Q4H PRN PO COUGH Last administered on 02/28/19at 20:11; Admin Dose 200 MG; Start 02/22/19 at 14:30 Polyethylene Glycol (Miralax) 17 gm BID PO Last administered on 02/28/19 08:49; Admin Dose 17 GM; Start 02/24/19 at 21:00 Bisacodyl (Dulcolax) 10 mg DAILY PRN PO CONSTIPATION; Start 02/24/19 at 15:30 Famotidine (Pepcid) 20 mg BID PO Last administered on 02/28/19at 20:11; Admin Dose 20 MG; Start 02/26/19 at 21:00 JAYRO SANTIAGO NP Mar 01, 2019 15:13
[2019-03-01] MEDS ORDERED: SOD CHLORIDE 0.9% 100 ML ONE (16:55)
[2019-03-01] MEDS ORDERED: IOHEXOL 300MG/ML 150 ML BTL ONE (16:55)
[2019-03-01] MEDS: HYDROCODONE/APAP (5/325) TAB PO PRN (17:21)
--- NOTE | 2019-03-01 19:52 | CONS ---
Assessment/Plan Assessment/Plan Hospital Course (Demo Recall) IMPRESSION: 1. Bacteremia, assess for possible intracardiac source of infection or endocarditis.- most recent blood cultures remain negative to date 2. Abnormal electrocardiogram with borderline inferior Q's, but no signs of progression of significant heart block or anything being indicative of a myocardial spread of infection. 3. Possible splenic abscess, question embolic source. 4. Recent hemorrhoidectomy. 5. Leukocytosis with defervescence. 6. Fevers with defervescence, on broad spectrum antibiotics. 7. Chronic rectal bleeding. Recc: -Continue abx's and f/u cx data -KALEY tenatively friday as necessary Consultation Date/Type/Reason Admit Date/Time Feb 20, 2019 at 23:21 Initial Consult Date 02/26/19 Type of Consult Cardiology Reason for Consultation bacteremia Requesting Provider: MADDIE HOYOS MD Date/Time of Note DATE: 03/01/19 TIME: 19:50 Exam/Review of Systems Vital Signs Vitals Vital Signs Date Temp Pulse Resp B/P (MAP) Pulse Ox O2 O2 Flow FiO2 Time Delivery Rate 03/01/19 99.0 82 20 114/65 98 13:17 (81) 03/01/19 Nasal 2.0 08:00 Cannula Intake and Output 02/28/19 02/28/19 03/01/19 1515:00 23:00 07:00 IntakeIntake Total 970 ml 920 ml 50 ml BalanceBalance 970 ml 920 ml 50 ml Exam Exam Review of Systems: CONSTITUTIONAL: No fevers, chills. PULMONARY: No sob CARDIOVASCULAR: No chest pain/palpitations GASTROINTESTINAL: No nausea/vomiting. GENITOURINARY: No hematuria/dysuria. MUSCULOSKELETAL: No myagias/arthalgias. PSYCHIATRIC: The patient denies depression. NEUROLOGIC: No weakness Constitutional: alert Psych: no complaints Head: normocephalic ENMT: mucosa pink and moist Neck: supple, jvd (8 cm water) Respiratory: clear to auscultation Cardiovascular: regular rate and rhythm Gastrointestinal: soft, non-tender Musculoskeletal: muscle tone (normal) Extremities: edema (none) Neurological: other (NO focal deficits) Labs Result Diagram: 03/01/19 0433 03/01/19 0433 Results 24hrs Laboratory Tests Test 03/01/19 04:33 03/01/19 04:34 White Blood Count 8.1 Red Blood Count 4.04 L Hemoglobin 9.6 L Hematocrit 32.0 L Mean Corpuscular Volume 79.2 L Mean Corpuscular Hemoglobin 23.8 L Mean Corpuscular Hemoglobin Concent 30.0 L Red Cell Distribution Width 21.8 H Platelet Count 334 Mean Platelet Volume 10.9 H Immature Granulocytes % 0.400 Neutrophils % 78.3 H Lymphocytes % 11.7 L Monocytes % 7.6 Eosinophils % 1.6 Basophils % 0.4 Nucleated Red Blood Cells % 0.0 Immature Granulocytes # 0.030 Neutrophils # 6.4 Lymphocytes # 1.0 Monocytes # 0.6 Eosinophils # 0.1 Basophils # 0.0 Nucleated Red Blood Cells # 0.0 Sodium Level 138 Potassium Level 4.7 Chloride Level 105 Carbon Dioxide Level 28 Anion Gap 5 Blood Urea Nitrogen 23 H Creatinine 1.01 Est Glomerular Filtrat Rate mL/min > 60 Glucose Level 92 Calcium Level 8.7 Phosphorus Level 3.9 Magnesium Level 2.3 Medications Medications Current Medications IV Flush (NS 3 ml) 3 ml PER PROTOCOL IV Last administered on 02/25/19 08:55; Admin Dose 3 ML; Start 02/21/19 at 01:30 Ondansetron HCl (Zofran Inj) 4 mg Q6H PRN IV NAUSEA/VOMITING; Start 02/21/19 at 01:30 Acetaminophen (Tylenol Tab) 650 mg Q6H PRN PO .PAIN 1-3 OR TEMP Last administered on 02/21/19 20:56; Admin Dose 650 MG; Start 02/21/19 at 01:30 Acetaminophen/ Hydrocodone Bitart ([place] (5/325)) 1 tab Q6H PRN PO .MOD PAIN 4- 6 Last administered on 03/01/19 17:21; Admin Dose 1 TAB; Start 02/21/19 at 01:30 Morphine Sulfate (morphine) 2 mg Q4H PRN IV .SEVERE PAIN 7-10 Last administered on 03/01/19 18:43; Admin Dose 2 MG; Start 02/21/19 at 01:30 Docusate Sodium (Colace) 100 mg Q12H PRN PO .CONSTIPATION Last administered on 02/25/19 08:51; Admin Dose 100 MG; Start 02/21/19 at 01:30 Magnesium Hydroxide (Milk Of Mag) 30 ml DAILY PRN PO .CONSTIPATION; Start 02/21/19 at 01:30 Heparin Sodium (Porcine) (Heparin (5000 Units/1ml)) 5,000 unit Q12 SC Last administered on 02/28/19 20:12; Admin Dose 5,000 UNIT; Start 02/21/19 at 09:00 Albuterol/ Ipratropium (Duoneb) 3 ml Q4H RESP THERAPY PRN HHN SHORTNESS OF BREATH; Start 02/21/19 at 01:30 Hydralazine HCl (Apresoline) 10 mg Q6H PRN IV ELEVATED BLOOD PRESSURE; Start 02/21/19 at 01:30 Nitroglycerin (Nitroglycerin (Sl Tab) 0.4 Mg) 1 tab Q5M PRN SL ANGINA; Start 02/21/19 at 01:30 Ferrous Sulfate (Ferrous Sulfate (Ec)) 325 mg DAILY PO Last administered on 02/28/19 08:49; Admin Dose 325 MG; Start 02/21/19 at 09:00 Meropenem/Sodium Chloride 50 ml @ 100 mls/hr Q8H IVPB Last administered on 03/01/19 18:04; Admin Dose 100 MLS/HR; Start 02/21/19 at 01:30 Guaifenesin (Robitussin Liquid Cup) 200 mg Q4H PRN PO COUGH Last administered on 02/28/19 20:11; Admin Dose 200 MG; Start 02/22/19 at 14:30 Polyethylene Glycol (Miralax) 17 gm BID PO Last administered on 02/28/19 08:49; Admin Dose 17 GM; Start 02/24/19 at 21:00 Bisacodyl (Dulcolax) 10 mg DAILY PRN PO CONSTIPATION; Start 02/24/19 at 15:30 Famotidine (Pepcid) 20 mg BID PO Last administered on 02/28/19 20:11; Admin Dose 20 MG; Start 02/26/19 at 21:00 MADDIE SANTIAGO Mar 01, 2019 19:52
[2019-03-01 20:11] VITALS: BP 109/65; PULSE 83; RESP 18
[2019-03-01] MEDS: GUAIFENESIN 20 MG/ML 5ML CUP PO PRN (20:31)
[2019-03-01] MEDS: ONDANSETRON 4 MG INJ IV PRN (20:32)
--- NOTE | 2019-03-01 23:48 | CONS ---
Assessment/Plan Assessment/Plan Hospital Course (Demo Recall) 1. Splenic abnormality on CT with possible abscess versus hematoma versus cyst 2. Bacteremia with ESBL and Cytrobacter 3. Sepsis ? secondary to above (bowel, uti, spleen, cardiac valves, recent surgery), improved -IV antibiotics -IV fluids -Supportive measures -Possible need for splenectomy if do not improve with antibiotics > immunizations 4. Anemia stable 5. BMI 33 -diet/exercise optimization Thank you very much for consulting me in this patient's care, Consultation Date/Type/Reason Admit Date/Time Feb 20, 2019 at 23:21 Date of Consultation: Mar 01, 2019 Type of Consult General surgery Reason for Consultation Abdominal pain Splenic lesions versus abscess versus hematoma BMI 33 Improved sepsis Requesting Provider: DANIELA BRUNSON Date/Time of Note DATE: 03/01/19 TIME: 23:48 Hx of Present Illness Anshul Lockwood is a 53yo male with multiple comorbidities with chronic iron deficiency anemia who gets iron transfusions through a right chest Port-A-Cath and had hemorrhoidectomy due to GI bleed in January by Dr. Medina. He was initially admitted with fever, lactic acidosis, and hypotension found to have bacteremia with ESBL and Citrobacter. He was started on antibiotics and supportive measures with pressors. His symptoms have improved however his left- sided abdominal pain persist. He does not have current fevers or chills. Some nausea but no vomiting. Bowel function. No dysuria. No headache or visual changes. No chest pain or shortness of breath. No cough. No seizure. No blood per mouth or rectum. Denies any traumas. Abdominal repeat CT identifies enlargement of the spleen with lesions which are either abscess hematoma or cyst. Surgical consult is obtained further evaluation and treatment. 12 point review of system is negative unless otherwise addressed in chart Past Medical History Recurrent GI bleeds Hemorrhoid BMI 33 Abdominal pain Splenomegaly with splenic lesions (abscess versus hematoma versus cyst) Home Meds Active Scripts Ciprofloxacin Hcl* (Ciprofloxacin Hcl*) 250 Mg Tablet, 250 MG PO BID for 4 Days, #8 TAB Prov:JOSE R MARIE 02/03/19 Hydrocodone Bit-Acetaminophen (Hydrocodone Bit-APAP) 5-325MG Tablet, 1 TAB PO Q6H PRN for PAIN LEVEL 6-10, #30 TAB Prov:JOSE R MARIE 02/03/19 Pantoprazole* (Protonix*) 40 Mg Tablet.dr, 40 MG PO DAILY for 30 Days, #30 TAB 2 Refills Prov:ALYCE DECKER 01/08/19 Reported Medications Ferrous Sulfate* (Ferrous Sulfate*) 325 Mg Tabec, 325 MG PO DAILY, TAB 01/25/19 Medications Current Medications IV Flush (NS 3 ml) 3 ml PER PROTOCOL IV Last administered on 02/25/19 08:55; Admin Dose 3 ML; Start 02/21/19 at 01:30 Ondansetron HCl (Zofran Inj) 4 mg Q6H PRN IV NAUSEA/VOMITING Last administered on 03/01/19 20:32; Admin Dose 4 MG; Start 02/21/19 at 01:30 Acetaminophen (Tylenol Tab) 650 mg Q6H PRN PO .PAIN 1-3 OR TEMP Last administered on 02/21/19 20:56; Admin Dose 650 MG; Start 02/21/19 at 01:30 Acetaminophen/ Hydrocodone Bitart ([place] (5/325)) 1 tab Q6H PRN PO .MOD PAIN 4- 6 Last administered on 03/01/19 17:21; Admin Dose 1 TAB; Start 02/21/19 at 01:30 Morphine Sulfate (morphine) 2 mg Q4H PRN IV .SEVERE PAIN 7-10 Last administered on 03/01/19 23:18; Admin Dose 2 MG; Start 02/21/19 at 01:30 Docusate Sodium (Colace) 100 mg Q12H PRN PO .CONSTIPATION Last administered on 02/25/19 08:51; Admin Dose 100 MG; Start 02/21/19 at 01:30 Magnesium Hydroxide (Milk Of Mag) 30 ml DAILY PRN PO .CONSTIPATION; Start 02/21/19 at 01:30 Heparin Sodium (Porcine) (Heparin (5000 Units/1ml)) 5,000 unit Q12 SC Last administered on 03/01/19 20:42; Admin Dose 5,000 UNIT; Start 02/21/19 at 09:00 Albuterol/ Ipratropium (Duoneb) 3 ml Q4H RESP THERAPY PRN HHN SHORTNESS OF BREATH; Start 02/21/19 at 01:30 Hydralazine HCl (Apresoline) 10 mg Q6H PRN IV ELEVATED BLOOD PRESSURE; Start 02/21/19 at 01:30 Nitroglycerin (Nitroglycerin (Sl Tab) 0.4 Mg) 1 tab Q5M PRN SL ANGINA; Start 02/21/19 at 01:30 Ferrous Sulfate (Ferrous Sulfate (Ec)) 325 mg DAILY PO Last administered on 02/28/19at 08:49; Admin Dose 325 MG; Start 02/21/19 at 09:00 Meropenem/Sodium Chloride 50 ml @ 100 mls/hr Q8H IVPB Last administered on 03/01/19at 18:04; Admin Dose 100 MLS/HR; Start 02/21/19 at 01:30 Guaifenesin (Robitussin Liquid Cup) 200 mg Q4H PRN PO COUGH Last administered on 03/01/19at 20:31; Admin Dose 200 MG; Start 02/22/19 at 14:30 Polyethylene Glycol (Miralax) 17 gm BID PO Last administered on 03/01/19at 20:31; Admin Dose 17 GM; Start 02/24/19 at 21:00 Bisacodyl (Dulcolax) 10 mg DAILY PRN PO CONSTIPATION; Start 02/24/19 at 15:30 Famotidine (Pepcid) 20 mg BID PO Last administered on 03/01/19at 20:32; Admin Dose 20 MG; Start 02/26/19 at 21:00 Allergies: Coded Allergies: No Known Allergy (Unverified , 01/04/19) Past Surgical History Hemorrhoidectomy by Dr. Medina in January Right shoulder surgery Knee surgery Right chest permacath Past Surgical Hx: other (Hemorrhoid, right shoulder, knee) Family History Significant Family History: no pertinent family hx Social History Alcohol Use: none Smoking Status: Never smoker Drug Use: none Exam/Review of Systems Exam Vitals Vital Signs Date Temp Pulse Resp B/P (MAP) Pulse Ox O2 O2 Flow FiO2 Time Delivery Rate 03/01/19 99.2 83 18 109/65 98 20:11 (80) 03/01/19 Nasal 2.0 08:00 Cannula Intake and Output 02/28/19 02/28/19 03/01/19 1515:00 23:00 07:00 IntakeIntake Total 970 ml 920 ml 50 ml BalanceBalance 970 ml 920 ml 50 ml Constitutional: alert, oriented, distress (Minimal mainly due to pain), obese Psych: anxiety; No confusion Head: normocephalic, atraumatic Eyes: nl conjunctiva, EOMI, PERRL; No icteric ENMT: nl external ears & nose, nl lips & teeth Neck: supple, non-tender; No jvd Respiratory: normal air movement; No labored breathing, No wheezing Cardiovascular: regular rate and rhythm; No edema Gastrointestinal: soft, distended, tender (Left abdomen, mostly upper); No rebound or guarding Musculoskeletal: No nl gait and stance, No joint tenderness Extremities: normal pulses; No calf tenderness, No edema Neurological: nl mental status, nl speech Skin: nl turgor; No rash or lesions, No diaphoresis Lymph: nl lymph nodes Results Result Diagram: 03/01/19 0433 03/01/19 0433 Results 24hrs Laboratory Tests Test 03/01/19 04:33 03/01/19 04:34 White Blood Count 8.1 Red Blood Count 4.04 L Hemoglobin 9.6 L Hematocrit 32.0 L Mean Corpuscular Volume 79.2 L Mean Corpuscular Hemoglobin 23.8 L Mean Corpuscular Hemoglobin Concent 30.0 L Red Cell Distribution Width 21.8 H Platelet Count 334 Mean Platelet Volume 10.9 H Immature Granulocytes % 0.400 Neutrophils % 78.3 H Lymphocytes % 11.7 L Monocytes % 7.6 Eosinophils % 1.6 Basophils % 0.4 Nucleated Red Blood Cells % 0.0 Immature Granulocytes # 0.030 Neutrophils # 6.4 Lymphocytes # 1.0 Monocytes # 0.6 Eosinophils # 0.1 Basophils # 0.0 Nucleated Red Blood Cells # 0.0 Sodium Level 138 Potassium Level 4.7 Chloride Level 105 Carbon Dioxide Level 28 Anion Gap 5 Blood Urea Nitrogen 23 H Creatinine 1.01 Est Glomerular Filtrat Rate mL/min > 60 Glucose Level 92 Calcium Level 8.7 Phosphorus Level 3.9 Magnesium Level 2.[address]: 1. Splenomegaly slightly increased over the previous with an interval increase in size to the largest large lobulated cystic lesion involving most of the lateral and inferior spleen measuring 12.8 x 11.5 x 6.8 cm and 20 HU in density. 2 other smaller cystic lesions are evident. These lesions could represent abscesses, infected cysts, or hematomas. There is a superficial linear cleft- like lucency seen at the superior tip of the spleen, unchanged. 2. Persistent hepatomegaly with no focal lesion. 3. Vague hypodensities extending to the cortex are seen within the kidneys raising the possibility of bilateral pyelonephritis with no renal abscess or urinary outflow obstruction evident. 4. Interval development of a small amount of free intraperitoneal fluid seen within the pelvic inferior peritoneal reflection which measures 8 HU. No free air is evident. There is a tiny fat containing umbilical hernia. 5. There is no evidence of bowel obstruction or inflammation. 6. Increasing subsegmental atelectasis involving the left lower lobe with discoid atelectasis involving the right lower lobe. There has been interval development of a small to moderate left pleural fluid accumulation which measures 22 HU and is therefore is not simple fluid. 6. Cardiomegaly with a trace of pericardial effusion. Catheter artifact is noted within the superior vena cava. 7. 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 Medications Medication Current Medications IV Flush (NS 3 ml) 3 ml PER PROTOCOL IV Last administered on 02/25/19 08:55; Admin Dose 3 ML; Start 02/21/19 at 01:30 Ondansetron HCl (Zofran Inj) 4 mg Q6H PRN IV NAUSEA/VOMITING Last administered on 03/01/19 20:32; Admin Dose 4 MG; Start 02/21/19 at 01:30 Acetaminophen (Tylenol Tab) 650 mg Q6H PRN PO .PAIN 1-3 OR TEMP Last administered on 02/21/19 20:56; Admin Dose 650 MG; Start 02/21/19 at 01:30 Acetaminophen/ Hydrocodone Bitart ([place] (5/325)) 1 tab Q6H PRN PO .MOD PAIN 4- 6 Last administered on 03/01/19 17:21; Admin Dose 1 TAB; Start 02/21/19 at 01:30 Morphine Sulfate (morphine) 2 mg Q4H PRN IV .SEVERE PAIN 7-10 Last administered on 03/01/19 23:18; Admin Dose 2 MG; Start 02/21/19 at 01:30 Docusate Sodium (Colace) 100 mg Q12H PRN PO .CONSTIPATION Last administered on 02/25/19 08:51; Admin Dose 100 MG; Start 02/21/19 at 01:30 Magnesium Hydroxide (Milk Of Mag) 30 ml DAILY PRN PO .CONSTIPATION; Start 02/21/19 at 01:30 Heparin Sodium (Porcine) (Heparin (5000 Units/1ml)) 5,000 unit Q12 SC Last administered on 03/01/19at 20:42; Admin Dose 5,000 UNIT; Start 02/21/19 at 09:00 Albuterol/ Ipratropium (Duoneb) 3 ml Q4H RESP THERAPY PRN HHN SHORTNESS OF BREATH; Start 02/21/19 at 01:30 Hydralazine HCl (Apresoline) 10 mg Q6H PRN IV ELEVATED BLOOD PRESSURE; Start 02/21/19 at 01:30 Nitroglycerin (Nitroglycerin (Sl Tab) 0.4 Mg) 1 tab Q5M PRN SL ANGINA; Start 02/21/19 at 01:30 Ferrous Sulfate (Ferrous Sulfate (Ec)) 325 mg DAILY PO Last administered on 02/28/19at 08:49; Admin Dose 325 MG; Start 02/21/19 at 09:00 Meropenem/Sodium Chloride 50 ml @ 100 mls/hr Q8H IVPB Last administered on 03/01/19at 18:04; Admin Dose 100 MLS/HR; Start 02/21/19 at 01:30 Guaifenesin (Robitussin Liquid Cup) 200 mg Q4H PRN PO COUGH Last administered on 03/01/19 20:31; Admin Dose 200 MG; Start 02/22/19 at 14:30 Polyethylene Glycol (Miralax) 17 gm BID PO Last administered on 03/01/19at 20:31; Admin Dose 17 GM; Start 02/24/19 at 21:00 Bisacodyl (Dulcolax) 10 mg DAILY PRN PO CONSTIPATION; Start 02/24/19 at 15:30 Famotidine (Pepcid) 20 mg BID PO Last administered on 03/01/19at 20:32; Admin Dose 20 MG; Start 02/26/19 at 21:00 ISAI RANDALL MD Mar 01, 2019 23:48
[2019-03-02] MEDS: MEROPENEM 1 GM/50ML(PMX) 50 ML IVPB SCH ×3 (01:34→17:01)
[2019-03-02] MEDS: HYDROCODONE/APAP (5/325) TAB PO PRN ×4 (01:35→23:52)
[2019-03-02 01:46] VITALS: BP 110/64; PULSE 80; RESP 16
[2019-03-02] MEDS: morphine 2 MG INJ IV PRN ×2 (04:59→08:59)
[2019-03-02] MEDS: GUAIFENESIN 20 MG/ML 5ML CUP PO PRN ×2 (04:59→21:53)
[2019-03-02] MEDS: ACETAMINOPHEN 325 MG TAB PO PRN (05:46)
[2019-03-02 07:36] VITALS: BP 100/61; PULSE 72; RESP 20
[2019-03-02] MEDS: FERROUS SULFATE (EC) 325 MG TAB PO SCH (09:01)
[2019-03-02] MEDS: FAMOTIDINE 20 MG TAB PO SCH ×2 (09:01→21:41)
[2019-03-02] MEDS: POLYETHYLENE GLYCOL 17 GM PACKET PO SCH ×2 (09:04→21:40)
[2019-03-02] MEDS: HEPARIN 5,000 UNIT/1 ML VIAL SC SCH ×2 (09:06→21:52)
[2019-03-02] MEDS ORDERED: DIPHENHYDRAMINE 50 MG INJ IV ONE (10:00)
--- NOTE | 2019-03-02 10:02 | PN ---
Date/Time of Note Date/Time of Note DATE: 03/02/19 TIME: 09:57 Assessment/Plan VTE Prophylaxis Risk score [place]from [facility] [place]0 risk: 6 SCD applied (from [facility] [place] No SCD contraindicated: other Pharmacological prophylaxis: heparin Lines/Catheters IV Catheter Type (from [facility] portacath Urinary Cath still in place: No Assessment/Plan Hospital Course 1. Status post septic shock. -Status post IV pressors. - Culture showing E. coli ESBL bacteremia. - ABX regimen per ID 2. Multiple low-attenuation splenic lesions. - CT abd 02/20/19: Multiple low attenuation splenic lesions which are new compared to prior examination and may be infectious/inflammatory in etiology such as abscesses. A less likely etiology include splenic infarcts. - Splenic abscess versus infarcts, suspect secondary to recent bacteremia. - Transthoracic echocardiogram negative for any embolic source. - Repeat CT abd imaging 03/01/19: Splenomegaly slightly increased over the previous with an interval increase in size to the largest large lobulated cystic lesion involving most of the lateral and inferior spleen measuring 12.8 x 11.5 x 6.8 cm and 20 HU in density. 2 other smaller cystic lesions are evident. These lesions could represent abscesses, infected cysts, or hematomas. There is a superficial linear cleft-like lucency seen at the superior tip of the spleen, unchanged. - Surgeon was consulted. f/u recommendations - Plan for splenectomy if not improving 3. Possible underlying infective endocarditis. - tentative plan for KALEY - continue abx 4. Chronic rectal bleeding. - transfuse blood products prn - monitor 5. Iron deficiency. - continue on iron DISPO/PLAN: continue abx. tentative plan for KALEY continue with analgesics. S plenomegaly worse. Surgeon following. Possible surgery if not better. Monitor for improvement Discussed plan of care with Dr. Luo Result Diagram: 03/01/19 0433 03/01/19 0433 Subjective 24 Hr Interval Summary Free Text/Dictation still reports having pain on his left flank. Family and RN at bedside. States he has a rash now on right posterior side. Exam/Review of Systems Exam Vitals Vital Signs Date Temp Pulse Resp B/P (MAP) Pulse Ox O2 O2 Flow FiO2 Time Delivery Rate 03/02/19 Nasal 2.0 08:00 Cannula 03/02/19 98.9 72 20 100/61 94 07:36 (74) Intake and Output 03/01/19 03/01/19 03/02/19 1515:00 23:00 07:00 IntakeIntake Total 50 ml 530 ml 1230 ml OutputOutput Total 600 ml 500 ml BalanceBalance -550 ml 530 ml 730 ml Exam Constitutional: alert, oriented Head: normocephalic Eyes: nl conjunctiva Respiratory: clear to auscultation, normal air movement Cardiovascular: regular rate and rhythm Gastrointestinal: soft,tender Neurological: DRAFTER CARTOGRAPHIC II-XII intact, nl mental status, nl speech Skin: nl turgor Medications Medication Current Medications IV Flush (NS 3 ml) 3 ml PER PROTOCOL IV Last administered on 02/25/19 08:55; Admin Dose 3 ML; Start 02/21/19 at 01:30 Ondansetron HCl (Zofran Inj) 4 mg Q6H PRN IV NAUSEA/VOMITING Last administered on 03/01/19 20:32; Admin Dose 4 MG; Start 02/21/19 at 01:30 Acetaminophen (Tylenol Tab) 650 mg Q6H PRN PO .PAIN 1-3 OR TEMP Last administered on 03/02/19 05:46; Admin Dose 650 MG; Start 02/21/19 at 01:30 Acetaminophen/ Hydrocodone Bitart ([place] (5/325)) 1 tab Q6H PRN PO .MOD PAIN 4- 6 Last administered on 03/02/19 01:35; Admin Dose 1 TAB; Start 02/21/19 at 01:30 Morphine Sulfate (morphine) 2 mg Q4H PRN IV .SEVERE PAIN 7-10 Last administered on 03/02/19 08:59; Admin Dose 2 MG; Start 02/21/19 at 01:30 Docusate Sodium (Colace) 100 mg Q12H PRN PO .CONSTIPATION Last administered on 02/25/19 08:51; Admin Dose 100 MG; Start 02/21/19 at 01:30 Magnesium Hydroxide (Milk Of Mag) 30 ml DAILY PRN PO .CONSTIPATION; Start 02/21/19 at 01:30 Heparin Sodium (Porcine) (Heparin (5000 Units/1ml)) 5,000 unit Q12 SC Last administered on 03/02/19 09:06; Admin Dose 5,000 UNIT; Start 02/21/19 at 09:00 Albuterol/ Ipratropium (Duoneb) 3 ml Q4H RESP THERAPY PRN HHN SHORTNESS OF BREATH; Start 02/21/19 at 01:30 Hydralazine HCl (Apresoline) 10 mg Q6H PRN IV ELEVATED BLOOD PRESSURE; Start 02/21/19 at 01:30 Nitroglycerin (Nitroglycerin (Sl Tab) 0.4 Mg) 1 tab Q5M PRN SL ANGINA; Start 02/21/19 at 01:30 Ferrous Sulfate (Ferrous Sulfate (Ec)) 325 mg DAILY PO Last administered on 03/02/19at 09:01; Admin Dose 325 MG; Start 02/21/19 at 09:00 Meropenem/Sodium Chloride 50 ml @ 100 mls/hr Q8H IVPB Last administered on 03/02/19 09:03; Admin Dose 100 MLS/HR; Start 02/21/19 at 01:30 Guaifenesin (Robitussin Liquid Cup) 200 mg Q4H PRN PO COUGH Last administered on 03/02/19at 04:59; Admin Dose 200 MG; Start 02/22/19 at 14:30 Polyethylene Glycol (Miralax) 17 gm BID PO Last administered on 03/02/19at 09:04; Admin Dose 17 GM; Start 02/24/19 at 21:00 Bisacodyl (Dulcolax) 10 mg DAILY PRN PO CONSTIPATION; Start 02/24/19 at 15:30 Famotidine (Pepcid) 20 mg BID PO Last administered on 03/02/19at 09:01; Admin Dose 20 MG; Start 02/26/19 at 21:00 Morphine Sulfate (morphine) 3 mg Q3H PRN IV SEVERE PAIN LEVEL 7-10; Start 03/02/19 at 10:00 JANELLE WAGGONER NP Mar 02, 2019 10:02
--- NOTE | 2019-03-02 10:03 | CONS ---
Consult Date/Type/Reason Admit Date/Time Feb 20, 2019 at 23:21 Initial Consult Date 03/01/19 Requesting Provider: DANIELA BRUNSON Date/Time of Note DATE: 03/02/19 TIME: 10:01 Subjective NO acute events - pt in significant degree of pain - will increase pain Rx - awaiting pos KALEY ROS: + chills, no nausea, no vomiting, no diarrhea/constipation + abd pain No recent weight changes No chest pain, no PND, no orthopnea No dizziness, blurred vision No thirst, no heat or cold intolerance Objective Vitals Vital Signs Date Temp Pulse Resp B/P (MAP) Pulse Ox O2 O2 Flow FiO2 Time Delivery Rate 03/02/19 Nasal 2.0 08:00 Cannula 03/02/19 98.9 72 20 100/61 94 07:36 (74) Intake and Output 03/01/19 03/01/19 03/02/19 1515:00 23:00 07:00 IntakeIntake Total 50 ml 530 ml 1230 ml OutputOutput Total 600 ml 500 ml BalanceBalance -550 ml 530 ml 730 ml Exam General: WN/WD/NAD, AOx 3 HEENT: Unicetric/atraumatic/EOMI (follow commands) NECK: JVD elevated, no thyromegaly Lymph: no lymphadenopathy HEART: regular with no S3, II/ systolic murmur at apex LUNGS: Coarse sounds ABD: soft, NT, ND, +BS : Intact Neuro: non focal SKIN: chronic changes EXT: trace edema Results/Medications Result Diagram: 03/01/1943203/01/19 0433 Home Meds Active Scripts Ciprofloxacin Hcl* (Ciprofloxacin Hcl*) 250 Mg Tablet, 250 MG PO BID for 4 Days, #8 TAB Prov:JOSE R MARIE 02/03/19 Hydrocodone Bit-Acetaminophen (Hydrocodone Bit-APAP) 5-325MG Tablet, 1 TAB PO Q6H PRN for PAIN LEVEL 6-10, #30 TAB Prov:JOSE R MARIE 02/03/19 Pantoprazole* (Protonix*) 40 Mg Tablet.dr, 40 MG PO DAILY for 30 Days, #30 TAB 2 Refills Prov:ALYCE DECKER 01/08/19 Reported Medications Ferrous Sulfate* (Ferrous Sulfate*) 325 Mg Tabec, 325 MG PO DAILY, TAB 01/25/19 Medications Current Medications IV Flush (NS 3 ml) 3 ml PER PROTOCOL IV Last administered on 02/25/19 08:55; Admin Dose 3 ML; Start 02/21/19 at 01:30 Ondansetron HCl (Zofran Inj) 4 mg Q6H PRN IV NAUSEA/VOMITING Last administered on 03/01/19 20:32; Admin Dose 4 MG; Start 02/21/19 at 01:30 Acetaminophen (Tylenol Tab) 650 mg Q6H PRN PO .PAIN 1-3 OR TEMP Last admin istered on 03/02/19 05:46; Admin Dose 650 MG; Start 02/21/19 at 01:30 Acetaminophen/ Hydrocodone Bitart ([place] (5/325)) 1 tab Q6H PRN PO .MOD PAIN 4- 6 Last administered on 03/02/19 01:35; Admin Dose 1 TAB; Start 02/21/19 at 01:30 Morphine Sulfate (morphine) 2 mg Q4H PRN IV .SEVERE PAIN 7-10 Last administered on 03/02/19 08:59; Admin Dose 2 MG; Start 02/21/19 at 01:30 Docusate Sodium (Colace) 100 mg Q12H PRN PO .CONSTIPATION Last administered on 02/25/19 08:51; Admin Dose 100 MG; Start 02/21/19 at 01:30 Magnesium Hydroxide (Milk Of Mag) 30 ml DAILY PRN PO .CONSTIPATION; Start 02/21/19 at 01:30 Heparin Sodium (Porcine) (Heparin (5000 Units/1ml)) 5,000 unit Q12 SC Last administered on 03/02/19 09:06; Admin Dose 5,000 UNIT; Start 02/21/19 at 09:00 Albuterol/ Ipratropium (Duoneb) 3 ml Q4H RESP THERAPY PRN HHN SHORTNESS OF BREATH; Start 02/21/19 at 01:30 Hydralazine HCl (Apresoline) 10 mg Q6H PRN IV ELEVATED BLOOD PRESSURE; Start 02/21/19 at 01:30 Nitroglycerin (Nitroglycerin (Sl Tab) 0.4 Mg) 1 tab Q5M PRN SL ANGINA; Start 02/21/19 at 01:30 Ferrous Sulfate (Ferrous Sulfate (Ec)) 325 mg DAILY PO Last administered on 03/02/19 09:01; Admin Dose 325 MG; Start 02/21/19 at 09:00 Meropenem/Sodium Chloride 50 ml @ 100 mls/hr Q8H IVPB Last administered on 03/02/19 09:03; Admin Dose 100 MLS/HR; Start 02/21/19 at 01:30 Guaifenesin (Robitussin Liquid Cup) 200 mg Q4H PRN PO COUGH Last administered on 03/02/19 04:59; Admin Dose 200 MG; Start 02/22/19 at 14:30 Polyethylene Glycol (Miralax) 17 gm BID PO Last administered on 03/02/19 09:04; Admin Dose 17 GM; Start 02/24/19 at 21:00 Bisacodyl (Dulcolax) 10 mg DAILY PRN PO CONSTIPATION; Start 02/24/19 at 15:30 Famotidine (Pepcid) 20 mg BID PO Last administered on 03/02/19 09:01; Admin Dose 20 MG; Start 02/26/19 at 21:00 Morphine Sulfate (morphine) 3 mg Q3H PRN IV SEVERE PAIN LEVEL 7-10; Start 03/02/19 at 10:00 Diphenhydramine HCl (Benadryl) 25 mg ONCE ONCE IV ; Start 03/02/19 at 10:00; Stop 03/02/19 at 10:01; Status UNV Assessment/Plan Hospital Course (Demo Recall) 1. Bacteremia, assess for possible intracardiac source of infection or endocarditis.- most recent blood cultures remain negative to date - ID follows 2. Abnormal electrocardiogram with borderline inferior Q's, but no signs of progression of significant heart block or anything being indicative of a myocardial spread of infection - con't supportive rX now. 3. Possible splenic abscess, question embolic source - very painful, Rx with pain meds now. 4. Recent hemorrhoidectomy. 5. Leukocytosis with defervescence - WBC normalized now. 6. Fevers with defervescence, on broad spectrum antibiotics . 7. Chronic rectal bleeding - H/H stable. JUNIE ROQUE MD Mar 02, 2019 10:03
--- NOTE | 2019-03-02 11:48 | CONS ---
Assessment/Plan Assessment/Plan Hospital Course (Demo Recall) No events over night Blood culture on admission grew E. coli ESBL, repeat blood cultures negative Antimicrobials: Meropenem Indwelling: Right chest Port-A-Cath CT abdomen 03/01/19: 1. Splenomegaly slightly increased over the previous with an interval increase in size to the largest large lobulated cystic lesion involving most of the lateral and inferior spleen measuring 12.8 x 11.5 x 6.8 cm and 20 HU in density. 2 other smaller cystic lesions are evident. These lesions could represent abscesses, infected cysts, or hematomas. There is a superficial linear cleft- like lucency seen at the superior tip of the spleen, unchanged. 2. Persistent hepatomegaly with no focal lesion. 3. Vague hypodensities extending to the cortex are seen within the kidneys raising the possibility of bilateral pyelonephritis with no renal abscess or urinary outflow obstruction evident. 4. Interval development of a small amount of free intraperitoneal fluid seen within the pelvic inferior peritoneal reflection which measures 8 HU. No free air is evident. There is a tiny fat containing umbilical hernia. 5. There is no evidence of bowel obstruction or inflammation. 6. Increasing subsegmental atelectasis involving the left lower lobe with discoid atelectasis involving the right lower lobe. There has been interval development of a small to moderate left pleural fluid accumulation which measures 22 HU and is therefore is not simple fluid. 6. Cardiomegaly with a trace of pericardial effusion. Catheter artifact is noted within the superior vena cava. 7. 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 _ Physical examination: This is well-nourished ill-appearing middle-aged man who is in no distress. Head atraumatic normocephalic neck is supple chest rise symmetrical breath sounds diminished to bases heart: S1-S2 abdomen obese soft bowel sounds present extremities with trace edema Assessment: 1. S/p sepsis with recurrent bacteremia 2. Splenomegaly with increase in size cystic lesions ?abscess 3. L pleural effusion 5. Chronic anemia 6. History of E. coli ESBL and Citrobacter bacteremia on January 31, 2019 7. Status post open hemorrhoidectomy 01/27/19 Plan: Stable, continue abx, consider surgical eval, may need chest US for poss thoracentesis, plan for KALEY Consultation Date/Type/Reason Admit Date/Time Feb 20, 2019 at 23:21 Initial Consult Date Type of Consult id Requesting Provider: DANIELA BRUNSON Date/Time of Note DATE: 03/02/19 TIME: 11:43 Exam/Review of Systems Exam Vitals Vital Signs Date Temp Pulse Resp B/P (MAP) Pulse Ox O2 O2 Flow FiO2 Time Delivery Rate 03/02/19 Nasal 2.0 08:00 Cannula 03/02/19 98.9 72 20 100/61 94 07:36 (74) Intake and Output 03/01/19 03/01/19 03/02/19 1515:00 23:00 07:00 IntakeIntake Total 50 ml 530 ml 1230 ml OutputOutput Total 600 ml 500 ml BalanceBalance -550 ml 530 ml 730 ml Results Result Diagram: 03/01/19 0433 03/01/19 0433 Medications Medication Current Medications IV Flush (NS 3 ml) 3 ml PER PROTOCOL IV Last administered on 02/25/19 08:55; Admin Dose 3 ML; Start 02/21/19 at 01:30 Ondansetron HCl (Zofran Inj) 4 mg Q6H PRN IV NAUSEA/VOMITING Last administered on 03/01/19 20:32; Admin Dose 4 MG; Start 02/21/19 at 01:30 Acetaminophen (Tylenol Tab) 650 mg Q6H PRN PO .PAIN 1-3 OR TEMP Last administered on 03/02/19 05:46; Admin Dose 650 MG; Start 02/21/19 at 01:30 Acetaminophen/ Hydrocodone Bitart ([place] (5/325)) 1 tab Q6H PRN PO .MOD PAIN 4- 6 Last administered on 03/02/19 10:39; Admin Dose 1 TAB; Start 02/21/19 at 01:30 Morphine Sulfate (morphine) 2 mg Q4H PRN IV .SEVERE PAIN 7-10 Last administered on 03/02/19 08:59; Admin Dose 2 MG; Start 02/21/19 at 01:30 Docusate Sodium (Colace) 100 mg Q12H PRN PO .CONSTIPATION Last administered on 02/25/19 08:51; Admin Dose 100 MG; Start 02/21/19 at 01:30 Magnesium Hydroxide (Milk Of Mag) 30 ml DAILY PRN PO .CONSTIPATION; Start 02/21/19 at 01:30 Heparin Sodium (Porcine) (Heparin (5000 Units/1ml)) 5,000 unit Q12 SC Last administered on 03/02/19at 09:06; Admin Dose 5,000 UNIT; Start 02/21/19 at 09:00 Albuterol/ Ipratropium (Duoneb) 3 ml Q4H RESP THERAPY PRN HHN SHORTNESS OF BREATH; Start 02/21/19 at 01:30 Hydralazine HCl (Apresoline) 10 mg Q6H PRN IV ELEVATED BLOOD PRESSURE; Start 02/21/19 at 01:30 Nitroglycerin (Nitroglycerin (Sl Tab) 0.4 Mg) 1 tab Q5M PRN SL ANGINA; Start 02/21/19 at 01:30 Ferrous Sulfate (Ferrous Sulfate (Ec)) 325 mg DAILY PO Last administered on 03/02/19at 09:01; Admin Dose 325 MG; Start 02/21/19 at 09:00 Meropenem/Sodium Chloride 50 ml @ 100 mls/hr Q8H IVPB Last administered on 03/02/19at 09:03; Admin Dose 100 MLS/HR; Start 02/21/19 at 01:30 Guaifenesin (Robitussin Liquid Cup) 200 mg Q4H PRN PO COUGH Last administered on 03/02/19at 04:59; Admin Dose 200 MG; Start 02/22/19 at 14:30 Polyethylene Glycol (Miralax) 17 gm BID PO Last administered on 03/02/19at 0 9:04; Admin Dose 17 GM; Start 02/24/19 at 21:00 Bisacodyl (Dulcolax) 10 mg DAILY PRN PO CONSTIPATION; Start 02/24/19 at 15:30 Famotidine (Pepcid) 20 mg BID PO Last administered on 03/02/19at 09:01; Admin Dose 20 MG; Start 02/26/19 at 21:00 Morphine Sulfate (morphine) 3 mg Q3H PRN IV SEVERE PAIN LEVEL 7-10; Start 03/02/19 at 10:00 JAYRO SANTIAGO NP Mar 02, 2019 11:48
[2019-03-02 13:16] VITALS: BP 117/56; PULSE 81; RESP 20
--- NOTE | 2019-03-02 14:11 | PN ---
Date/Time of Note Date/Time of Note DATE: 03/02/19 TIME: 14:02 Assessment/Plan Lines/Catheters IV Catheter Type (from Nrs): portacath Bah in Place (from Nrs): No Assessment/Plan Chief Complaint/Hosp Course 1. 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 Bacteremia with ESBL and Cytrobacter, concern for endocarditis> johana pending 3. Sepsis secondary to above (bowel, uti, spleen, cardiac valves, recent surgery), resolved (labs/vitals/hd stable) -continue IV antibiotics -IV fluids -continue supportive measures -continue pain control -Possible need for splenectomy if does not improve > immunizations 4. Anemia stable 5. BMI 33 -diet/exercise optimization Thank you. Patient seen and examined in collaboration with Dr. Yuriy Wu. Subjective 24 Hr Interval Summary Continues to have left sided pain. No fevers, chills, sob, congested cough, cp, palpitations, metz, dizziness, n/v/d/dysuria. + bowel function. Exam/Review of Systems Vital Signs Vitals Vital Signs Date Temp Pulse Resp B/P (MAP) Pulse Ox O2 O2 Flow FiO2 Time Delivery Rate 03/02/19 98.6 81 20 117/56 96 13:16 (76) 03/02/19 Nasal 2.0 08:00 Cannula Intake and Output 03/01/19 03/01/19 03/02/19 1515:00 23:00 07:00 IntakeIntake Total 50 ml 530 ml 1230 ml OutputOutput Total 600 ml 500 ml BalanceBalance -550 ml 530 ml 730 ml Exam Free Text/Dictation Constitutional: alert, oriented, distress (Minimal mainly due to pain), obese Psych: anxiety; No confusion Head: normocephalic, atraumatic Eyes: nl conjunctiva, EOMI, PERRL; No icteric ENMT: nl external ears & nose, nl lips & teeth Neck: supple, non-tender; No jvd Respiratory: normal air movement; No labored breathing, No wheezing Cardiovascular: regular rate and rhythm; No edema Gastrointestinal: soft, distended, tender (Left abdomen, mostly upper); No rebound or guarding Musculoskeletal: No nl gait and stance, No joint tenderness Extremities: normal pulses; No calf tenderness, No edema Neurological: nl mental status, nl speech Skin: nl turgor; No rash or lesions, No diaphoresis Lymph: nl lymph nodes Results Result Diagram: 03/01/19 0433 03/01/19 0433 BRUNO SALDANA NP Mar 02, 2019 14:11
[2019-03-02] MEDS: morphine 4 MG/ML VIAL IV PRN ×3 (15:23→21:38)
[2019-03-02 19:37] VITALS: BP 109/55; PULSE 89; RESP 20
[2019-03-03] VITALS (11 sets, daily range): BP systolic 95–118; BP diastolic 52–67; PULSE 80–99; RESP 14–29
[2019-03-03] MEDS: MEROPENEM 1 GM/50ML(PMX) 50 ML IVPB SCH ×2 (00:57→09:35)
[2019-03-03] MEDS: morphine 4 MG/ML VIAL IV PRN ×2 (00:59→04:41)
[2019-03-03] MEDS: FERROUS SULFATE (EC) 325 MG TAB PO SCH (09:00)
[2019-03-03] MEDS: POLYETHYLENE GLYCOL 17 GM PACKET PO SCH ×3 (09:00→21:00)
[2019-03-03] MEDS: FAMOTIDINE 20 MG TAB PO SCH ×2 (09:04→21:33)
[2019-03-03] MEDS: HEPARIN 5,000 UNIT/1 ML VIAL SC SCH ×2 (09:04→21:36)
[2019-03-03] MEDS ORDERED: FENTAnyl 50 MCG/ML VIAL ONE (09:29)
[2019-03-03] MEDS ORDERED: PROPOFOL 40 ML ONE (09:29)
[2019-03-03] MEDS ORDERED: LIDOCAINE 100 MG SYRINGE ONE (09:29)
--- NOTE | 2019-03-03 10:16 | PN ---
Date/Time of Note Date/Time of Note DATE: 03/03/19 TIME: 10:11 Assessment/Plan VTE Prophylaxis Risk score (from [facility] [place])>0 risk: 5 SCD applied (from [facility] [place]): No SCD contraindicated: other Pharmacological prophylaxis: heparin Lines/Catheters IV C[facility] Type (from [facility] PORTACATH Urinary Cath still in place: No Assessment/Plan Hospital Course 1. Status post septic shock. -Status post IV pressors. - Culture showing E. coli ESBL bacteremia. - ABX regimen per ID 2. Multiple low-attenuation splenic lesions. - CT abd 02/20/19: Multiple low attenuation splenic lesions which are new compared to prior examination and may be infectious/inflammatory in etiology such as abscesses. A less likely etiology include splenic infarcts. - Splenic abscess versus infarcts, suspect secondary to recent bacteremia. - Transthoracic echocardiogram negative for any embolic source. - Repeat CT abd imaging 03/01/19: Splenomegaly slightly increased over the previous with an interval increase in size to the largest large lobulated cystic lesion involving most of the lateral and inferior spleen measuring 12.8 x 11.5 x 6.8 cm and 20 HU in density. 2 other smaller cystic lesions are evident. These lesions could represent abscesses, infected cysts, or hematomas. There is a superficial linear cleft-like lucency seen at the superior tip of the spleen, unchanged. - Surgeon was consulted. f/u recommendations - Plan for splenectomy if not improving 3. Possible underlying infective endocarditis. - tentative plan for KALEY - continue abx 4. Chronic rectal bleeding. - transfuse blood products prn - monitor 5. Iron deficiency. - continue on iron 6. Suspect allergic reaction - etiology unknown. ABX? - f/u ID for use of steroid - antihistamine prn DISPO/PLAN: continue abx. Plan for KALEY today continue with analgesics. antihistamine for allergy (etiology: abx?). Monitor splenomegaly. Discussed plan of care with Dr. Luo Result Diagram: 03/03/19 0432 03/03/19 0432 Results 24hrs Laboratory Tests Test 03/03/19 04:32 White Blood Count 15.5 #H Red Blood Count 4.40 L Hemoglobin 10.5 L Hematocrit 34.6 L Mean Corpuscular Volume 78.6 L Mean Corpuscular Hemoglobin 23.9 L Mean Corpuscular Hemoglobin Concent 30.3 L Red Cell Distribution Width 21.8 H Platelet Count 478 #H Mean Platelet Volume 11.3 H Immature Granulocytes % 0.500 H Neutrophils % 89.2 H Lymphocytes % 5.7 L Monocytes % 4.0 Eosinophils % 0.5 Basophils % 0.1 Nucleated Red Blood Cells % 0.0 Immature Granulocytes # 0.080 H Neutrophils # 13.8 H Lymphocytes # 0.9 Monocytes # 0.6 Eosinophils # 0.1 Basophils # 0.0 Nucleated Red Blood Cells # 0.0 Sodium Level 135 Potassium Level 4.4 Chloride Level 99 Carbon Dioxide Level 28 Anion Gap 8 Blood Urea Nitrogen 18 Creatinine 0.81 Est Glomerular Filtrat Rate mL/min > 60 Glucose Level 99 Calcium Level 8.8 Subjective 24 Hr Interval Summary Free Text/Dictation still reports having pain on his left flank, little less. reports having hives on bilateral arms Exam/Review of Systems Exam Vitals Vital Signs Date Temp Pulse Resp B/P (MAP) Pulse Ox O2 O2 Flow FiO2 Time Delivery Rate 03/03/19 99.2 99 18 106/59 91 07:38 (75) 03/02/19 Nasal 2.0 20:45 Cannula Intake and Output 03/02/19 03/02/19 03/03/19 1515:00 23:00 07:00 IntakeIntake Total 530 ml 50 ml 50 ml OutputOutput Total 500 ml 550 ml BalanceBalance 30 ml -500 ml 50 ml Exam Constitutional: alert, oriented Head: normocephalic Eyes: nl conjunctiva Respiratory: clear to auscultation, normal air movement Cardiovascular: regular rate and rhythm Gastrointestinal: soft, tender Neurological: TONG SETTER II-XII intact, nl mental status, nl speech Skin: nl turgor Results Results 24hrs Laboratory Tests Test 03/03/19 04:32 White Blood Count 15.5 #H Red Blood Count 4.40 L Hemoglobin 10.5 L Hematocrit 34.6 L Mean Corpuscular Volume 78.6 L Mean Corpuscular Hemoglobin 23.9 L Mean Corpuscular Hemoglobin Concent 30.3 L Red Cell Distribution Width 21.8 H Platelet Count 478 #H Mean Platelet Volume 11.3 H Immature Granulocytes % 0.500 H Neutrophils % 89.2 H Lymphocytes % 5.7 L Monocytes % 4.0 Eosinophils % 0.5 Basophils % 0.1 Nucleated Red Blood Cells % 0.0 Immature Granulocytes # 0.080 H Neutrophils # 13.8 H Lymphocytes # 0.9 Monocytes # 0.6 Eosinophils # 0.1 Basophils # 0.0 Nucleated Red Blood Cells # 0.0 Sodium Level 135 Potassium Level 4.4 Chloride Level 99 Carbon Dioxide Level 28 Anion Gap 8 Blood Urea Nitrogen 18 Creatinine 0.81 Est Glomerular Filtrat Rate mL/min > 60 Glucose Level 99 Calcium Level 8.8 Medications Medication Current Medications IV Flush (NS 3 ml) 3 ml PER PROTOCOL IV Last administered on 02/25/19 08:55; Admin Dose 3 ML; Start 02/21/19 at 01:30 Ondansetron HCl (Zofran Inj) 4 mg Q6H PRN IV NAUSEA/VOMITING Last administered on 03/01/19 20:32; Admin Dose 4 MG; Start 02/21/19 at 01:30 Acetaminophen (Tylenol Tab) 650 mg Q6H PRN PO .PAIN 1-3 OR TEMP Last administered on 03/02/19 05:46; Admin Dose 650 MG; Start 02/21/19 at 01:30 Acetaminophen/ Hydrocodone Bitart ([place] (5/325)) 1 tab Q6H PRN PO .MOD PAIN 4- 6 Last administered on 03/02/19 23:52; Admin Dose 1 TAB; Start 02/21/19 at 01:30 Morphine Sulfate (morphine) 2 mg Q4H PRN IV .SEVERE PAIN 7-10 Last administered on 03/02/19 08:59; Admin Dose 2 MG; Start 02/21/19 at 01:30 Docusate Sodium (Colace) 100 mg Q12H PRN PO .CONSTIPATION Last administered on 02/25/19 08:51; Admin Dose 100 MG; Start 02/21/19 at 01:30 Magnesium Hydroxide (Milk Of Mag) 30 ml DAILY PRN PO .CONSTIPATION; Start 02/21/19 at 01:30 Heparin Sodium (Porcine) (Heparin (5000 Units/1ml)) 5,000 unit Q12 SC Last administered on 03/03/19 09:04; Admin Dose 5,000 UNIT; Start 02/21/19 at 09:00 Albuterol/ Ipratropium (Duoneb) 3 ml Q4H RESP THERAPY PRN HHN SHORTNESS OF BR EATH; Start 02/21/19 at 01:30 Hydralazine HCl (Apresoline) 10 mg Q6H PRN IV ELEVATED BLOOD PRESSURE; Start 02/21/19 at 01:30 Nitroglycerin (Nitroglycerin (Sl Tab) 0.4 Mg) 1 tab Q5M PRN SL ANGINA; Start 02/21/19 at 01:30 Ferrous Sulfate (Ferrous Sulfate (Ec)) 325 mg DAILY PO Last administered on 03/02/19 09:01; Admin Dose 325 MG; Start 02/21/19 at 09:00 Meropenem/Sodium Chloride 50 ml @ 100 mls/hr Q8H IVPB Last administered on 03/03/19 09:35; Admin Dose 100 MLS/HR; Start 02/21/19 at 01:30 Guaifenesin (Robitussin Liquid Cup) 200 mg Q4H PRN PO COUGH Last administered on 03/02/19at 21:53; Admin Dose 200 MG; Start 02/22/19 at 14:30 Polyethylene Glycol (Miralax) 17 gm BID PO Last administered on 03/02/19 21:40; Admin Dose 17 GM; Start 02/24/19 at 21:00 Bisacodyl (Dulcolax) 10 mg DAILY PRN PO CONSTIPATION; Start 02/24/19 at 15:30 Famotidine (Pepcid) 20 mg BID PO Last administered on 03/03/19 09:04; Admin Dose 20 MG; Start 02/26/19 at 21:00 Morphine Sulfate (morphine) 3 mg Q3H PRN IV SEVERE PAIN LEVEL 7-10 Last administered on 03/03/19 04:41; Admin Dose 3 MG; Start 03/02/19 at 10:00 Diphenhydramine HCl (Benadryl) 25 mg Q6H PRN IV allergy; Start 03/03/19 at 10:30; Status JANELLE CONSTANTINO NP Mar 03, 2019 10:16
[2019-03-03] MEDS: DIPHENHYDRAMINE 50 MG INJ IV PRN ×2 (10:33→22:20)
--- NOTE | 2019-03-03 11:42 | PREAC ---
Date/Time of Note Date/Time of Note DATE: 03/03/19 TIME: 11:40 Anesthesia Eval and Record Evaluation Time Pre-Procedure Interview DATE: 03/03/19 TIME: 11:40 Age 53 Sex male NPO: 8 hrs Preoperative diagnosis bacteremia, rule out infective endocarditis Planned procedure KALEY Past Medical History Past Medical History: Includes (SEPTIC SHOCK) GI: Obesity Heme: Anemia (IRON DEF) Surgery & Anesthesia Issues No known issue Meds Anticoagulation: No Beta Kerry within 24 hr: No Reason Beta Kerry not given: Pt. not on B-Kerry Active Scripts Ciprofloxacin Hcl* (Ciprofloxacin Hcl*) 250 Mg Tablet, 250 MG PO BID for 4 Days, #8 TAB Prov:JOSE R MARIE 02/03/19 Hydrocodone Bit-Acetaminophen (Hydrocodone Bit-APAP) 5-325MG Tablet, 1 TAB PO Q6H PRN for PAIN LEVEL 6-10, #30 TAB Prov:JOSE R MARIE 02/03/19 Pantoprazole* (Protonix*) 40 Mg Tablet.dr, 40 MG PO DAILY for 30 Days, #30 TAB 2 Refills Prov:ALYCE DECKER 01/08/19 Reported Medications Ferrous Sulfate* (Ferrous Sulfate*) 325 Mg Tabec, 325 MG PO DAILY, TAB 01/25/19 Current Medications IV Flush (NS 3 ml) 3 ml PER PROTOCOL IV Last administered on 02/25/19at 08:55; Admin Dose 3 ML; Start 02/21/19 at 01:30 Ondansetron HCl (Zofran Inj) 4 mg Q6H PRN IV NAUSEA/VOMITING Last administered on 03/01/19at 20:32; Admin Dose 4 MG; Start 02/21/19 at 01:30 Acetaminophen (Tylenol Tab) 650 mg Q6H PRN PO .PAIN 1-3 OR TEMP Last administered on 03/02/19 05:46; Admin Dose 650 MG; Start 02/21/19 at 01:30 Acetaminophen/ Hydrocodone Bitart ([place] (5/325)) 1 tab Q6H PRN PO .MOD PAIN 4- 6 Last administered on 03/02/19at 23:52; Admin Dose 1 TAB; Start 02/21/19 at 01:30 Morphine Sulfate (morphine) 2 mg Q4H PRN IV .SEVERE PAIN 7-10 Last administered on 03/02/19at 08:59; Admin Dose 2 MG; Start 02/21/19 at 01:30 Docusate Sodium (Colace) 100 mg Q12H PRN PO .CONSTIPATION Last administered on 02/25/19 08:51; Admin Dose 100 MG; Start 02/21/19 at 01:30 Magnesium Hydroxide (Milk Of Mag) 30 ml DAILY PRN PO .CONSTIPATION; Start 02/21/19 at 01:30 Heparin Sodium (Porcine) (Heparin (5000 Units/1ml)) 5,000 unit Q12 SC Last administered on 03/03/19 09:04; Admin Dose 5,000 UNIT; Start 02/21/19 at 09:00 Albuterol/ Ipratropium (Duoneb) 3 ml Q4H RESP THERAPY PRN HHN SHORTNESS OF BREATH; Start 02/21/19 at 01:30 Hydralazine HCl (Apresoline) 10 mg Q6H PRN IV ELEVATED BLOOD PRESSURE; Start 02/21/19 at 01:30 Nitroglycerin (Nitroglycerin (Sl Tab) 0.4 Mg) 1 tab Q5M PRN SL ANGINA; Start 02/21/19 at 01:30 Ferrous Sulfate (Ferrous Sulfate (Ec)) 325 mg DAILY PO Last administered on 03/02/19 09:01; Admin Dose 325 MG; Start 02/21/19 at 09:00 Meropenem/Sodium Chloride 50 ml @ 100 mls/hr Q8H IVPB Last administered on 03/03/19 09:35; Admin Dose 100 MLS/HR; Start 02/21/19 at 01:30 Guaifenesin (Robitussin Liquid Cup) 200 mg Q4H PRN PO COUGH Last administered on 03/02/19 21:53; Admin Dose 200 MG; Start 02/22/19 at 14:30 Polyethylene Glycol (Miralax) 17 gm BID PO Last administered on 03/02/19 21:40; Admin Dose 17 GM; Start 02/24/19 at 21:00 Bisacodyl (Dulcolax) 10 mg DAILY PRN PO CONSTIPATION; Start 02/24/19 at 15:30 Famotidine (Pepcid) 20 mg BID PO Last administered on 03/03/19 09:04; Admin Dose 20 MG; Start 02/26/19 at 21:00 Morphine Sulfate (morphine) 3 mg Q3H PRN IV SEVERE PAIN LEVEL 7-10 Last administered on 03/03/19at 04:41; Admin Dose 3 MG; Start 03/02/19 at 10:00 Diphenhydramine HCl (Benadryl) 25 mg Q6H PRN IV allergy Last administered on 03/03/19at 10:33; Admin Dose 25 MG; Start 03/03/19 at 10:30 Meds reviewed: Yes Allergies Coded Allergies: No Known Allergy (Unverified , 01/04/19) Allergies Reviewed: Yes Labs/Studies Labs Reviewed: Reviewed by anesthesiologist Result Diagram: 03/03/19 0432 03/03/19 0432 Laboratory Tests 03/03/19 04:32 test: N/A Studies: ECG (NL), CXR (Low lung volumes with compressive changes and bibasilar atelectasis. L) Pre-procedure Exam Last vitals Vital Signs Date Temp Pulse Resp B/P (MAP) Pulse Ox O2 O2 Flow FiO2 Time Delivery Rate 03/03/19 Nasal 2.0 10:41 Cannula 03/03/19 99.2 99 18 106/59 91 07:38 (75) Airway: Adequate mouth opening, Adequate thyromental dist Mallampati: Mallampati II Teeth: Abnormal (DENTURES TOP AND BOTTOM) Lung: Normal Heart: Normal ASA Physical Status ASA physical status: 2 Emergency: None Planned Anesthetic General/MAC: MAC Planned Pain Management Parenteral pain med Pre-operative Attestations Prior to commencing anesthesia and surgery, the patient was re-evaluated, there was verification of: *The patient's identity *The results of appropriate recent lab work and preoperative vital signs *The above evaluation not changing prior to induction *Anesthetic plan, risk benefits, alternative and complications discussed with patient/family; questions answered; patient/family understands, accepts and wishes to proceed. Sathish Harris M.D. Mar 03, 2019 11:42
--- NOTE | 2019-03-03 11:58 | CONS ---
Assessment/Plan Assessment/Plan Hospital Course (Demo Recall) IMPRESSION: 1. Bacteremia, assess for possible intracardiac source of infection or endocarditis.- most recent blood cultures remain negative to date 2. Abnormal electrocardiogram with borderline inferior Q's, but no signs of progression of significant heart block or anything being indicative of a myocardial spread of infection. 3. Possible splenic abscess, question embolic source. 4. Recent hemorrhoidectomy. 5. Leukocytosis with defervescence. 6. Fevers with defervescence, on broad spectrum antibiotics. 7. Chronic rectal bleeding. Recc: -Continue abx's and f/u cx data -KALEY today Consultation Date/Type/Reason Admit Date/Time Feb 20, 2019 at 23:21 Initial Consult Date 02/26/19 Type of Consult Cardiology Reason for Consultation bacteremia Requesting Provider: DANIELA BRUNSON Date/Time of Note DATE: 03/03/19 TIME: 11:56 Exam/Review of Systems Vital Signs Vitals Vital Signs Date Temp Pulse Resp B/P (MAP) Pulse Ox O2 O2 Flow FiO2 Time Delivery Rate 03/03/19 Nasal 2.0 10:41 Cannula 03/03/19 99.2 99 18 106/59 91 07:38 (75) Intake and Output 03/02/19 03/02/19 03/03/19 1515:00 23:00 07:00 IntakeIntake Total 530 ml 50 ml 50 ml OutputOutput Total 500 ml 550 ml BalanceBalance 30 ml -500 ml 50 ml Exam Exam Review of Systems: CONSTITUTIONAL: No fevers, chills. PULMONARY: No sob CARDIOVASCULAR: No chest pain/palpitations GASTROINTESTINAL: No nausea/vomiting. GENITOURINARY: No hematuria/dysuria. MUSCULOSKELETAL: No myagias/arthalgias. PSYCHIATRIC: The patient denies depression. NEUROLOGIC: No weakness Constitutional: alert Psych: no complaints Head: normocephalic ENMT: mucosa pink and moist Neck: supple, jvd (9 cm water) Respiratory: clear to auscultation Cardiovascular: regular rate and rhythm Gastrointestinal: soft, non-tender Musculoskeletal: muscle tone (normal) Extremities: edema (none) Labs Result Diagram: 03/03/19 0432 03/03/19 0432 Results 24hrs Laboratory Tests Test 03/03/19 04:32 White Blood Count 15.5 #H Red Blood Count 4.40 L Hemoglobin 10.5 L Hematocrit 34.6 L Mean Corpuscular Volume 78.6 L Mean Corpuscular Hemoglobin 23.9 L Mean Corpuscular Hemoglobin Concent 30.3 L Red Cell Distribution Width 21.8 H Platelet Count 478 #H Mean Platelet Volume 11.3 H Immature Granulocytes % 0.500 H Neutrophils % 89.2 H Lymphocytes % 5.7 L Monocytes % 4.0 Eosinophils % 0.5 Basophils % 0.1 Nucleated Red Blood Cells % 0.0 Immature Granulocytes # 0.080 H Neutrophils # 13.8 H Lymphocytes # 0.9 Monocytes # 0.6 Eosinophils # 0.1 Basophils # 0.0 Nucleated Red Blood Cells # 0.0 Sodium Level 135 Potassium Level 4.4 Chloride Level 99 Carbon Dioxide Level 28 Anion Gap 8 Blood Urea Nitrogen 18 Creatinine 0.81 Est Glomerular Filtrat Rate mL/min > 60 Glucose Level 99 Calcium Level 8.8 Medications Medications Current Medications IV Flush (NS 3 ml) 3 ml PER PROTOCOL IV Last administered on 02/25/19 08:55; Admin Dose 3 ML; Start 02/21/19 at 01:30 Ondansetron HCl (Zofran Inj) 4 mg Q6H PRN IV NAUSEA/VOMITING Last administered on 03/01/19 20:32; Admin Dose 4 MG; Start 02/21/19 at 01:30 Acetaminophen (Tylenol Tab) 650 mg Q6H PRN PO .PAIN 1-3 OR TEMP Last administered on 03/02/19 05:46; Admin Dose 650 MG; Start 02/21/19 at 01:30 Acetaminophen/ Hydrocodone Bitart ([place] (5/325)) 1 tab Q6H PRN PO .MOD PAIN 4- 6 Last administered on 03/02/19 23:52; Admin Dose 1 TAB; Start 02/21/19 at 01:30 Morphine Sulfate (morphine) 2 mg Q4H PRN IV .SEVERE PAIN 7-10 Last administered on 03/02/19 08:59; Admin Dose 2 MG; Start 02/21/19 at 01:30 Docusate Sodium (Colace) 100 mg Q12H PRN PO .CONSTIPATION Last administered on 02/25/19 08:51; Admin Dose 100 MG; Start 02/21/19 at 01:30 Magnesium Hydroxide (Milk Of Mag) 30 ml DAILY PRN PO .CONSTIPATION; Start 02/21/19 at 01:30 Heparin Sodium (Porcine) (Heparin (5000 Units/1ml)) 5,000 unit Q12 SC Last administered on 03/03/19 09:04; Admin Dose 5,000 UNIT; Start 02/21/19 at 09:00 Albuterol/ Ipratropium (Duoneb) 3 ml Q4H RESP THERAPY PRN HHN SHORTNESS OF BREATH; Start 02/21/19 at 01:30 Hydralazine HCl (Apresoline) 10 mg Q6H PRN IV ELEVATED BLOOD PRESSURE; Start 02/21/19 at 01:30 Nitroglycerin (Nitroglycerin (Sl Tab) 0.4 Mg) 1 tab Q5M PRN SL ANGINA; Start 02/21/19 at 01:30 Ferrous Sulfate (Ferrous Sulfate (Ec)) 325 mg DAILY PO Last administered on 03/02/19 09:01; Admin Dose 325 MG; Start 02/21/19 at 09:00 Meropenem/Sodium Chloride 50 ml @ 100 mls/hr Q8H IVPB Last administered on 03/03/19 09:35; Admin Dose 100 MLS/HR; Start 02/21/19 at 01:30 Guaifenesin (Robitussin Liquid Cup) 200 mg Q4H PRN PO COUGH Last administered on 03/02/19 21:53; Admin Dose 200 MG; Start 02/22/19 at 14:30 Polyethylene Glycol (Miralax) 17 gm BID PO Last administered on 03/02/19 21:40; Admin Dose 17 GM; Start 02/24/19 at 21:00 Bisacodyl (Dulcolax) 10 mg DAILY PRN PO CONSTIPATION; Start 02/24/19 at 15:30 Famotidine (Pepcid) 20 mg BID PO Last administered on 03/03/19 09:04; Admin Dose 20 MG; Start 02/26/19 at 21:00 Morphine Sulfate (morphine) 3 mg Q3H PRN IV SEVERE PAIN LEVEL 7-10 Last administered on 03/03/19 04:41; Admin Dose 3 MG; Start 03/02/19 at 10:00 Diphenhydramine HCl (Benadryl) 25 mg Q6H PRN IV allergy Last administered on 03/03/19 10:33; Admin Dose 25 MG; Start 03/03/19 at 10:30 MADDIE SANTIAGO Mar 03, 2019 11:58
--- NOTE | 2019-03-03 12:01 | SIPON ---
Date/Time of Note Date/Time of Note DATE: 03/03/19 TIME: 12:00 Operative Report Preoperative Diagnosis 1.bacteremia Postoperative Diagnosis 1.no noted valvular vegetations Operation/Procedure Performed 1.KALEY Surgeon see signature line assistant signal maintainer 1.German Anesthesia: MAC Estimated blood loss: minimal Transfusion Required none Specimen none Grafts/Implants none Complications none MADDIE SANTIAGO Mar 03, 2019 12:01
[2019-03-03] MEDS: morphine 2 MG INJ IV PRN ×3 (12:20→21:47)
--- NOTE | 2019-03-03 12:24 | CONS ---
Assessment/Plan Assessment/Plan Hospital Course (Demo Recall) Patient just had a KALEY in ICU that is negative he is awake in no distress complaining of left-sided abdominal pain right, he is slightly tachypneic in no distress and afebrile. WBC 15.5 platelets 478 neutrophils 89.2 BUN 918 creatinine 0.81 Blood culture on admission grew E. coli ESBL, repeat blood cultures negative Antimicrobials: Meropenem Indwelling: Right chest Port-A-Cath CT abdomen 03/01/19: 1. Splenomegaly slightly increased over the previous with an interval increase in size to the largest large lobulated cystic lesion involving most of the lateral and inferior spleen measuring 12.8 x 11.5 x 6.8 cm and 20 HU in density. 2 other smaller cystic lesions are evident. These lesions could represent abscesses, infected cysts, or hematomas. There is a superficial linear cleft-li ke lucency seen at the superior tip of the spleen, unchanged. 2. Persistent hepatomegaly with no focal lesion. 3. Vague hypodensities extending to the cortex are seen within the kidneys raising the possibility of bilateral pyelonephritis with no renal abscess or urinary outflow obstruction evident. 4. Interval development of a small amount of free intraperitoneal fluid seen within the pelvic inferior peritoneal reflection which measures 8 HU. No free air is evident. There is a tiny fat containing umbilical hernia. 5. There is no evidence of bowel obstruction or inflammation. 6. Increasing subsegmental atelectasis involving the left lower lobe with discoid atelectasis involving the right lower lobe. There has been interval development of a small to moderate left pleural fluid accumulation which measures 22 HU and is therefore is not simple fluid. 6. Cardiomegaly with a trace of pericardial effusion. Catheter artifact is noted within the superior vena cava. 7. 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 _ Physical examination: This is well-nourished ill-appearing middle-aged man who is in no distress. Head atraumatic normocephalic neck is supple chest rise symmetrical breath sounds diminished to bases heart: S1-S2 abdomen obese soft bowel sounds present extremities with trace edema Assessment: 1. Sepsis with recurrent bacteremia 2. Splenomegaly with increase in size cystic lesions ?abscess? splenic infarct 3. L pleural effusion 5. Chronic anemia 6. History of E. coli ESBL and Citrobacter bacteremia on January 31, 2019 7. Status post open hemorrhoidectomy 01/27/19 8. Hives possibly allergic reaction to Merrem Plan: Stable s/p neg KALEY, change Abx to tobramycin, add long-acting antihistamines, check cxr and urine cx, f/u surgical rec-s Consultation Date/Type/Reason Admit Date/Time Feb 20, 2019 at 23:21 Initial Consult Date Type of Consult id Requesting Provider: DANIELA BRUNSON Date/Time of Note DATE: 03/03/19 TIME: 12:21 Exam/Review of Systems Exam Vitals Vital Signs Date Temp Pulse Resp B/P (MAP) Pulse Ox O2 O2 Flow FiO2 Time Delivery Rate 03/03/19 2.0 12:10 03/03/19 Nasal 10:41 Cannula 03/03/19 99.2 99 18 106/59 91 07:38 (75) Intake and Output 03/02/19 03/02/19 03/03/19 1515:00 23:00 07:00 IntakeIntake Total 530 ml 50 ml 50 ml OutputOutput Total 500 ml 550 ml BalanceBalance 30 ml -500 ml 50 ml Results Result Diagram: 03/03/19 0432 03/03/19 0432 Results 24hrs Laboratory Tests Test 03/03/19 04:32 White Blood Count 15.5 #H Red Blood Count 4.40 L Hemoglobin 10.5 L Hematocrit 34.6 L Mean Corpuscular Volume 78.6 L Mean Corpuscular Hemoglobin 23.9 L Mean Corpuscular Hemoglobin Concent 30.3 L Red Cell Distribution Width 21.8 H Platelet Count 478 #H Mean Platelet Volume 11.3 H Immature Granulocytes % 0.500 H Neutrophils % 89.2 H Lymphocytes % 5.7 L Monocytes % 4.0 Eosinophils % 0.5 Basophils % 0.1 Nucleated Red Blood Cells % 0.0 Immature Granulocytes # 0.080 H Neutrophils # 13.8 H Lymphocytes # 0.9 Monocytes # 0.6 Eosinophils # 0.1 Basophils # 0.0 Nucleated Red Blood Cells # 0.0 Sodium Level 135 Potassium Level 4.4 Chloride Level 99 Carbon Dioxide Level 28 Anion Gap 8 Blood Urea Nitrogen 18 Creatinine 0.81 Est Glomerular Filtrat Rate mL/min > 60 Glucose Level 99 Calcium Level 8.8 Medications Medication Current Medications IV Flush (NS 3 ml) 3 ml PER PROTOCOL IV Last administered on 02/25/19 08:55; Admin Dose 3 ML; Start 02/21/19 at 01:30 Ondansetron HCl (Zofran Inj) 4 mg Q6H PRN IV NAUSEA/VOMITING Last administered on 03/01/19 20:32; Admin Dose 4 MG; Start 02/21/19 at 01:30 Acetaminophen (Tylenol Tab) 650 mg Q6H PRN PO .PAIN 1-3 OR TEMP Last administered on 03/02/19 05:46; Admin Dose 650 MG; Start 02/21/19 at 01:30 Acetaminophen/ Hydrocodone Bitart ([place] (5/325)) 1 tab Q6H PRN PO .MOD PAIN 4- 6 Last administered on 03/02/19 23:52; Admin Dose 1 TAB; Start 02/21/19 at 01:30 Morphine Sulfate (morphine) 2 mg Q4H PRN IV .SEVERE PAIN 7-10 Last administered on 03/02/19 08:59; Admin Dose 2 MG; Start 02/21/19 at 01:30 Docusate Sodium (Colace) 100 mg Q12H PRN PO .CONSTIPATION Last administered on 02/25/19 08:51; Admin Dose 100 MG; Start 02/21/19 at 01:30 Magnesium Hydroxide (Milk Of Mag) 30 ml DAILY PRN PO .CONSTIPATION; Start 02/21/19 at 01:30 Heparin Sodium (Porcine) (Heparin (5000 Units/1ml)) 5,000 unit Q12 SC Last administered on 03/03/19 09:04; Admin Dose 5,000 UNIT; Start 02/21/19 at 09:00 Albuterol/ Ipratropium (Duoneb) 3 ml Q4H RESP THERAPY PRN HHN SHORTNESS OF BREATH; Start 02/21/19 at 01:30 Hydralazine HCl (Apresoline) 10 mg Q6H PRN IV ELEVATED BLOOD PRESSURE; Start 02/21/19 at 01:30 Nitroglycerin (Nitroglycerin (Sl Tab) 0.4 Mg) 1 tab Q5M PRN SL ANGINA; Start 02/21/19 at 01:30 Ferrous Sulfate (Ferrous Sulfate (Ec)) 325 mg DAILY PO Last administered on 03/02/19 09:01; Admin Dose 325 MG; Start 02/21/19 at 09:00 Meropenem/Sodium Chloride 50 ml @ 100 mls/hr Q8H IVPB Last administered on 03/03/19 09:35; Admin Dose 100 MLS/HR; Start 02/21/19 at 01:30 Guaifenesin (Robitussin Liquid Cup) 200 mg Q4H PRN PO COUGH Last administered on 03/02/19 21:53; Admin Dose 200 MG; Start 02/22/19 at 14:30 Polyethylene Glycol (Miralax) 17 gm BID PO Last administered on 03/02/19 21:40; Admin Dose 17 GM; Start 02/24/19 at 21:00 Bisacodyl (Dulcolax) 10 mg DAILY PRN PO CONSTIPATION; Start 02/24/19 at 15:30 Famotidine (Pepcid) 20 mg BID PO Last administered on 03/03/19 09:04; Admin Dose 20 MG; Start 02/26/19 at 21:00 Morphine Sulfate (morphine) 3 mg Q3H PRN IV SEVERE PAIN LEVEL 7-10 Last administered on 03/03/19 04:41; Admin Dose 3 MG; Start 03/02/19 at 10:00 Diphenhydramine HCl (Benadryl) 25 mg Q6H PRN IV allergy Last administered on 03/03/19 10:33; Admin Dose 25 MG; Start 03/03/19 at 10:30 JAYRO SANTIAGO NP Mar 03, 2019 12:24
--- NOTE | 2019-03-03 12:25 | PN ---
Date/Time of Note Date/Time of Note DATE: 03/03/19 TIME: 12:21 Assessment/Plan Lines/Catheters IV Catheter Type (from Nrs): william cath Bah in Place (from Nrs): No Assessment/Plan Chief Complaint/Hosp Course 1. 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 Bacteremia with ESBL and Cytrobacter, concern for endocarditis> johana today 3. Sepsis secondary to above (bowel, uti, spleen, cardiac valves, recent surgery), resolved (labs/vitals/hd stable) -continue IV antibiotics -IV fluids -continue supportive measures -continue aggressive pain control -Possible need for splenectomy if does not improve > immunizations 4. Anemia stable 5. BMI 33 -diet/exercise optimization 6. Hives:? Etiology:? Allergic reaction -Per medical/ID team Thank you. Patient seen and examined in collaboration with Dr. Yuriy Wu. Subjective 24 Hr Interval Summary Continues to have abdominal pain. Development of hives/rash yesterday. JOHANA today. No fevers, chills, sob, congested cough, cp, palpitations, metz, dizziness, nausea, vomiting, diarrhea, dysuria. Exam/Review of Systems Vital Signs Vitals Vital Signs Date Temp Pulse Resp B/P (MAP) Pulse Ox O2 O2 Flow FiO2 Time Delivery Rate 03/03/19 2.0 12:10 03/03/19 Nasal 10:41 Cannula 03/03/19 99.2 99 18 106/59 91 07:38 (75) Intake and Output 03/02/19 03/02/19 03/03/19 1515:00 23:00 07:00 IntakeIntake Total 530 ml 50 ml 50 ml OutputOutput Total 500 ml 550 ml BalanceBalance 30 ml -500 ml 50 ml Exam Free Text/Dictation Constitutional: alert, oriented, distress (Minimal mainly due to pain), obese Psych: anxiety; No confusion Head: normocephalic, atraumatic Eyes: nl conjunctiva, EOMI, PERRL; No icteric ENMT: nl external ears & nose, nl lips & teeth Neck: supple, non-tender; No jvd Respiratory: normal air movement; No labored breathing, No wheezing Cardiovascular: regular rate and rhythm; No edema Gastrointestinal: soft, distended, tender (Left abdomen, mostly upper); No rebound or guarding Musculoskeletal: No nl gait and stance, No joint tenderness Extremities: normal pulses; No calf tenderness, No edema Neurological: nl mental status, nl speech Skin: nl turgor; hives No diaphoresis Lymph: nl lymph nodes Results Result Diagram: 03/03/19 0432 03/03/19 0432 BRUNO SALDANA NP Mar 03, 2019 12:25
[2019-03-03] MEDS ORDERED: TOBRAMYCIN IV PER PHARMACY XX SCH (16:00)
[2019-03-03] MEDS: LORATADINE 10 MG TAB PO SCH (17:06)
[2019-03-03] MEDS: TOBRAMYCIN 500 MG in DEXTROSE 5% 100 ML IVPB SCH (18:56)
[2019-03-03] MEDS: HYDROCODONE/APAP (5/325) TAB PO PRN (19:42)
[2019-03-03] MEDS: GUAIFENESIN 20 MG/ML 5ML CUP PO PRN (21:46)
[2019-03-03] MEDS ORDERED: FAMOTIDINE 20 MG INJ IV ONE (23:00)
--- NOTE | 2019-03-04 00:46 | CARRPT ---
DATE OF PROCEDURE: 03/03/2019 TYPE OF PROCEDURE: 1. Transesophageal echo. 2. MAC anesthesia under direction of anesthesiologist, Dr. Harris at the bedside. INDICATION: Bacteremia, assess for intracardiac source of infection. REFERRING PHYSICIAN: Maddie Pepper MD ATTENDING PHYSICIAN: Maddie Tang MD TYPE OF ANESTHESIA: MAC under direction of Dr. Harris at bedside. BRIEF HISTORY: Mr. iDnesh Ray is a 53-year-old male with a history of recent hemorrhoidectom y with subsequent splenic lesion and then subsequent bacteremia who had been treated and returned wit h ongoing bacteremia and transthoracic echo without findings and therefore was referred for transesop hageal echo to further assess possibility of intracardiac source of infection or endocarditis. DESCRIPTION OF PROCEDURE: After informed consent was obtained, the patient was brought to the intens cody care unit where he was placed to continuous telemetry monitoring, O2 saturation monitoring, and b lood pressure cuff cycling every 3 minutes. The patient had a bite block placed in his mouth and was given MAC anesthesia with propofol under direction of Dr. Harris at the bedside, so he achieves a dequate level of anesthesia. At this time, the patient's esophagus was intubated with the transesoph ageal probe and using multiplanar imaging and color flow Doppler interrogation, the patient's cardiac structures were adequately interrogated. The probe was removed. The patient was allowed to awake f rom his anesthetized state, completing procedure. There were no noted complications. FINDINGS: 1. No definite findings of left atrial appendage thrombus or spontaneous contrast. Left atrial appe ndage velocity of approximately 50 cm per second. 2. No definite findings of patent foramen ovale or other interatrial septal defect by color flow Dop pler interrogation of septum only. The patient does have a hypermobile interatrial septum. 3. Normal-appearing aortic valve apparatus. No aortic regurgitation. No vegetations associated wit h this valve apparatus. 4. Normal-appearing mitral valve apparatus. No definite vegetations associated with this valve appa ratus. Trace mitral regurgitation. 5. Pulmonic apparatus somewhat poorly visualized. No definite vegetations found associated with thi s valve apparatus. 6. Elongated redundant-appearing tricuspid valve leaflets with no definite valvular vegetations note d associated with valve apparatus and trace tricuspid regurgitation. 7. Very minimal atherosclerotic plaquing of the patient's descending, ascending, and transverse aort a. IMPRESSION: No definite findings of intracardiac source of infection or endocarditis by this transes ophageal study. RECOMMENDATIONS: 1. At this time, would continue to assess for alternative source of infection. 2. We will continue to treat the patient with antibiotic therapy and follow up all culture data. Dictated By: MADDIE GUSMAN/TARYN Conf#: [id number] DID#: [id number] CC: JAYRO SANTIAGO NP; ALYCE DECKER; MADDIE PEPPER MD;*EndCC*
[2019-03-04] MEDS: morphine 2 MG INJ IV PRN ×2 (02:10→06:33)
[2019-03-04 02:15] VITALS: BP 109/69; PULSE 93; RESP 22
[2019-03-04] MEDS: ACETAMINOPHEN 325 MG TAB PO PRN (02:19)
[2019-03-04 02:32] VITALS: PULSE 90
[2019-03-04] MEDS: GUAIFENESIN 20 MG/ML 5ML CUP PO PRN (03:52)
[2019-03-04] MEDS: DIPHENHYDRAMINE 50 MG INJ IV PRN ×3 (04:26→18:21)
[2019-03-04] MEDS: HYDROCODONE/APAP (5/325) TAB PO PRN (04:31)
[2019-03-04 07:23] VITALS: BP 102/61; PULSE 84; RESP 17
[2019-03-04] MEDS: FERROUS SULFATE (EC) 325 MG TAB PO SCH (09:32)
[2019-03-04] MEDS: LORATADINE 10 MG TAB PO SCH (09:32)
[2019-03-04] MEDS: POLYETHYLENE GLYCOL 17 GM PACKET PO SCH ×2 (09:32→21:20)
[2019-03-04] MEDS: FAMOTIDINE 20 MG TAB PO SCH ×2 (09:32→21:20)
[2019-03-04] MEDS: HEPARIN 5,000 UNIT/1 ML VIAL SC SCH ×2 (09:39→21:30)
[2019-03-04] MEDS ORDERED: FUROSEMIDE 20 MG INJ IV ONE (10:00)
--- NOTE | 2019-03-04 10:24 | PN ---
Date/Time of Note Date/Time of Note DATE: 03/04/19 TIME: 10:19 Assessment/Plan VTE Prophylaxis Risk score (from Ns)>0 risk: 5 SCD applied (from [facility] [place]): No SCD contraindicated: other Pharmacological prophylaxis: heparin Lines/Catheters IV Catheter Type (from [facility]): william catheter Urinary Cath still in place: No Assessment/Plan Hospital Course 1. Status post septic shock. -Status post IV pressors. - Culture showing E. coli ESBL bacteremia. - ABX regimen per ID 2. Multiple low-attenuation splenic lesions. - CT abd 02/20/19: Multiple low attenuation splenic lesions which are new compared to prior examination and may be infectious/inflammatory in etiology such as abscesses. A less likely etiology include splenic infarcts. - Splenic abscess versus infarcts, suspect secondary to recent bacteremia. - Transthoracic echocardiogram negative for any embolic source. - Repeat CT abd imaging 03/01/19: Splenomegaly slightly increased over the previous with an interval increase in size to the largest large lobulated cystic lesion involving most of the lateral and inferior spleen measuring 12.8 x 11.5 x 6.8 cm and 20 HU in density. 2 other smaller cystic lesions are evident. These lesions could represent abscesses, infected cysts, or hematomas. There is a superficial linear cleft-like lucency seen at the superior tip of the spleen, unchanged. - Surgeon was consulted. f/u recommendations - Plan for splenectomy if not improving 3. Possible underlying infective endocarditis. - s/p KALEY 03.04.19: No definite findings of intracardiac source of infection or endocarditis - continue abx 4. Chronic rectal bleeding. - transfuse blood products prn - monitor 5. Iron deficiency. - continue on iron 6. Suspect allergic reaction - etiology unknown. ABX? - f/u ID for use of steroid - antihistamine prn DISPO/PLAN: abx per ID. Noted with worse pain today. analgesics added. Pain management consult to follow. f/u surgeon recommendations. Discussed plan of care with Dr. Luo Result Diagram: 03/04/199 03/04/19428 Results 24hrs Laboratory Tests Test 03/04/19 02:10 03/04/19 04:29 Random Tobramycin Level 5.9 White Blood Count 15.5 H Red Blood Count 4.39 L Hemoglobin 10.5 L Hematocrit 34.9 L Mean Corpuscular Volume 79.5 L Mean Corpuscular Hemoglobin 23.9 L Mean Corpuscular Hemoglobin Concent 30.1 L Red Cell Distribution Width 21.7 H Platelet Count 544 H Mean Platelet Volume 11.3 H Immature Granulocytes % 0.500 H Neutrophils % 87.8 H Lymphocytes % 6.8 L Monocytes % 4.3 Eosinophils % 0.5 Basophils % 0.1 Nucleated Red Blood Cells % 0.0 Immature Granulocytes # 0.070 H Neutrophils # 13.6 H Lymphocytes # 1.1 Monocytes # 0.7 Eosinophils # 0.1 Basophils # 0.0 Nucleated Red Blood Cells # 0.0 Sodium Level 135 Potassium Level 4.8 Chloride Level 96 L Carbon Dioxide Level 28 Anion Gap 11 Blood Urea Nitrogen 16 Creatinine 0.87 Est Glomerular Filtrat Rate mL/min > 60 Glucose Level 106 Calcium Level 8.8 Subjective 24 Hr Interval Summary Free Text/Dictation reports worse pain today Exam/Review of Systems Exam Vitals Vital Signs Date Temp Pulse Resp B/P (MAP) Pulse Ox O2 O2 Flow FiO2 Time Delivery Rate 03/04/19 98.2 84 17 102/61 96 Room Air 07:23 (75) 03/04/19 2.0 02:51 Intake and Output 03/03/19 03/03/19 03/04/19 1515:00 23:00 07:00 IntakeIntake Total 50 ml 612.5 ml BalanceBalance 50 ml 612.5 ml Exam Constitutional: alert, oriented Head: normocephalic Eyes: nl conjunctiva Respiratory: clear to auscultation, normal air movement Cardiovascular: regular rate and rhythm Gastrointestinal: soft, tender Neurological: CHIEF NURSING EXECUTIVE II-XII intact, nl mental status, nl speech Skin: nl turgor Results Results 24hrs Laboratory Tests Test 03/04/19 02:10 03/04/19 04:29 Random Tobramycin Level 5.9 White Blood Count 15.5 H Red Blood Count 4.39 L Hemoglobin 10.5 L Hematocrit 34.9 L Mean Corpuscular Volume 79.5 L Mean Corpuscular Hemoglobin 23.9 L Mean Corpuscular Hemoglobin Concent 30.1 L Red Cell Distribution Width 21.7 H Platelet Count 544 H Mean Platelet Volume 11.3 H Immature Granulocytes % 0.500 H Neutrophils % 87.8 H Lymphocytes % 6.8 L Monocytes % 4.3 Eosinophils % 0.5 Basophils % 0.1 Nucleated Red Blood Cells % 0.0 Immature Granulocytes # 0.070 H Neutrophils # 13.6 H Lymphocytes # 1.1 Monocytes # 0.7 Eosinophils # 0.1 Basophils # 0.0 Nucleated Red Blood Cells # 0.0 Sodium Level 135 Potassium Level 4.8 Chloride Level 96 L Carbon Dioxide Level 28 Anion Gap 11 Blood Urea Nitrogen 16 Creatinine 0.87 Est Glomerular Filtrat Rate mL/min > 60 Glucose Level 106 Calcium Level 8.8 Medications Medication Current Medications IV Flush (NS 3 ml) 3 ml PER PROTOCOL IV Last administered on 02/25/19 08:55; Admin Dose 3 ML; Start 02/21/19 at 01:30 Ondansetron HCl (Zofran Inj) 4 mg Q6H PRN IV NAUSEA/VOMITING Last administered on 03/01/19 20:32; Admin Dose 4 MG; Start 02/21/19 at 01:30 Acetaminophen (Tylenol Tab) 650 mg Q6H PRN PO .PAIN 1-3 OR TEMP Last administered on 03/04/19 02:19; Admin Dose 650 MG; Start 02/21/19 at 01:30 Acetaminophen/ Hydrocodone Bitart ([place] (5/325)) 1 tab Q6H PRN PO .MOD PAIN 4- 6 Last administered on 03/04/19 04:31; Admin Dose 1 TAB; Start 02/21/19 at 01:30 Morphine Sulfate (morphine) 2 mg Q4H PRN IV .SEVERE PAIN 7-10 Last administered on 03/04/19 06:33; Admin Dose 2 MG; Start 02/21/19 at 01:30 Docusate Sodium (Colace) 100 mg Q12H PRN PO .CONSTIPATION Last administered on 02/25/19 08:51; Admin Dose 100 MG; Start 02/21/19 at 01:30 Magnesium Hydroxide (Milk Of Mag) 30 ml DAILY PRN PO .CONSTIPATION; Start 02/21/19 at 01:30 Heparin Sodium (Porcine) (Heparin (5000 Units/1ml)) 5,000 unit Q12 SC Last administered on 03/04/19 09:39; Admin Dose 5,000 UNIT; Start 02/21/19 at 09:00 Albuterol/ Ipratropium (Duoneb) 3 ml Q4H RESP THERAPY PRN HHN SHORTNESS OF BREATH; Start 02/21/19 at 01:30 Hydralazine HCl (Apresoline) 10 mg Q6H PRN IV ELEVATED BLOOD PRESSURE; Start 02/21/19 at 01:30 Nitroglycerin (Nitroglycerin (Sl Tab) 0.4 Mg) 1 tab Q5M PRN SL ANGINA; Start 02/21/19 at 01:30 Ferrous Sulfate (Ferrous Sulfate (Ec)) 325 mg DAILY PO Last administered on 03/04/19 09:32; Admin Dose 325 MG; Start 02/21/19 at 09:00 Guaifenesin (Robitussin Liquid Cup) 200 mg Q4H PRN PO COUGH Last administered on 03/04/19 03:52; Admin Dose 200 MG; Start 02/22/19 at 14:30 Polyethylene Glycol (Miralax) 17 gm BID PO Last administered on 03/04/19 09:3 2; Admin Dose 17 GM; Start 02/24/19 at 21:00 Bisacodyl (Dulcolax) 10 mg DAILY PRN PO CONSTIPATION; Start 02/24/19 at 15:30 Famotidine (Pepcid) 20 mg BID PO Last administered on 03/04/19 09:32; Admin Dose 20 MG; Start 02/26/19 at 21:00 Morphine Sulfate (morphine) 3 mg Q3H PRN IV SEVERE PAIN LEVEL 7-10 Last administered on 03/03/19 04:41; Admin Dose 3 MG; Start 03/02/19 at 10:00 Diphenhydramine HCl (Benadryl) 25 mg Q6H PRN IV allergy Last administered on 03/04/19 09:42; Admin Dose 25 MG; Start 03/03/19 at 10:30 Tobramycin (Tobramycin Iv Per Pharmacy) TOBRAMYCIN PER PHARMACY NOTE XX ; Start 03/03/19 at 16:00 Loratadine (Claritin) 10 mg DAILY PO Last administered on 03/04/19 09:32; Admi n Dose 10 MG; Start 03/03/19 at 17:00 Tobramycin 500 mg/ Dextrose 112.5 ml @ 103.75 mls/ hr Q24H IVPB Last administered on 03/03/19 18:56; Admin Dose 103.75 MLS/HR; Start 03/03/19 at 18:00 Linezolid (Zyvox) 600 mg BID PO ; Start 03/04/19 at 10:00 Hydromorphone HCl (Dilaudid) 1 mg Q3H PRN IV SEVERE PAIN LEVEL 7-10; Start 03/04/19 at 10:30 Oxycodone/ Acetaminophen (Percocet (5/ 325)) 1 tab Q4H PRN PO MODERATE PAIN LEVEL 4-6; Start 03/04/19 at 10:30 JANELLE WAGGONER NP Mar 04, 2019 10:24
[2019-03-04] MEDS: morphine 4 MG/ML VIAL IV PRN (10:27)
[2019-03-04] MEDS: ZYVOX 600 MG TAB PO SCH ×2 (10:27→21:20)
[2019-03-04] MEDS ORDERED: HYDROmorphONE 1 MG/ML SYG IV PRN (10:30)
[2019-03-04] MEDS ORDERED: OXYCODONE/ACETAMINOPHEN (5/325) TAB PO PRN (10:30)
--- NOTE | 2019-03-04 13:01 | CONS ---
Assessment/Plan Assessment/Plan Hospital Course (Demo Recall) IMPRESSION: 1. Bacteremia, assess for possible intracardiac source of infection or endocarditis.- most recent blood cultures remain negative to date. 2. Abnormal electrocardiogram with borderline inferior Q's, but no signs of progression of significant heart block or anything being indicative of a myocardial spread of infection. 3. Possible splenic abscess, question embolic source. 4. Recent hemorrhoidectomy. 5. Leukocytosis with defervescence. 6. Fevers with defervescence, on broad spectrum antibiotics. 7. Chronic rectal bleeding. Recc: -Continue abx's and f/u cx data -s/p KALEY with no definite findings of vegetations Consultation Date/Type/Reason Admit Date/Time Feb 20, 2019 at 23:21 Initial Consult Date 02/26/19 Type of Consult Cardiology Reason for Consultation bacteremia Requesting Provider: DANIELA BRUNSON Date/Time of Note DATE: 03/04/19 TIME: 12:57 Exam/Review of Systems Vital Signs Vitals Vital Signs Date Temp Pulse Resp B/P (MAP) Pulse Ox O2 O2 Flow FiO2 Time Delivery Rate 03/04/19 98.2 84 17 102/61 96 Room Air 07:23 (75) 03/04/19 2.0 02:51 Intake and Output 03/03/19 03/03/19 03/04/19 1515:00 23:00 07:00 IntakeIntake Total 50 ml 612.5 ml BalanceBalance 50 ml 612.5 ml Exam Exam Review of Systems: CONSTITUTIONAL: No fevers, chills. PULMONARY: No sob CARDIOVASCULAR: No chest pain/palpitations GASTROINTESTINAL: No nausea/vomiting. GENITOURINARY: No hematuria/dysuria. MUSCULOSKELETAL: No myagias/arthalgias. PSYCHIATRIC: The patient denies depression. NEUROLOGIC: No weakness Constitutional: alert Psych: no complaints Head: normocephalic ENMT: mucosa pink and moist Neck: supple, jvd (9 cm water) Respiratory: diminished breath sounds Cardiovascular: regular rate and rhythm Gastrointestinal: soft, non-tender Musculoskeletal: muscle tone (normal) Extremities: edema (none) Neurological: other (no focal deficits) Labs Result Diagram: 03/04/19 0429 03/04/19 0429 Results 24hrs Laboratory Tests Test 03/04/19 02:10 03/04/19 04:29 Random Tobramycin Level 5.9 White Blood Count 15.5 H Red Blood Count 4.39 L Hemoglobin 10.5 L Hematocrit 34.9 L Mean Corpuscular Volume 79.5 L Mean Corpuscular Hemoglobin 23.9 L Mean Corpuscular Hemoglobin Concent 30.1 L Red Cell Distribution Width 21.7 H Platelet Count 544 H Mean Platelet Volume 11.3 H Immature Granulocytes % 0.500 H Neutrophils % 87.8 H Lymphocytes % 6.8 L Monocytes % 4.3 Eosinophils % 0.5 Basophils % 0.1 Nucleated Red Blood Cells % 0.0 Immature Granulocytes # 0.070 H Neutrophils # 13.6 H Lymphocytes # 1.1 Monocytes # 0.7 Eosinophils # 0.1 Basophils # 0.0 Nucleated Red Blood Cells # 0.0 Sodium Level 135 Potassium Level 4.8 Chloride Level 96 L Carbon Dioxide Level 28 Anion Gap 11 Blood Urea Nitrogen 16 Creatinine 0.87 Est Glomerular Filtrat Rate mL/min > 60 Glucose Level 106 Calcium Level 8.8 Medications Medications Current Medications IV Flush (NS 3 ml) 3 ml PER PROTOCOL IV Last administered on 02/25/19 08:55; Admin Dose 3 ML; Start 02/21/19 at 01:30 Ondansetron HCl (Zofran Inj) 4 mg Q6H PRN IV NAUSEA/VOMITING Last administered on 03/01/19 20:32; Admin Dose 4 MG; Start 02/21/19 at 01:30 Acetaminophen (Tylenol Tab) 650 mg Q6H PRN PO .PAIN 1-3 OR TEMP Last administered on 03/04/19 02:19; Admin Dose 650 MG; Start 02/21/19 at 01:30 Acetaminophen/ Hydrocodone Bitart ([place] (5/325)) 1 tab Q6H PRN PO .MOD PAIN 4- 6 Last administered on 03/04/19 04:31; Admin Dose 1 TAB; Start 02/21/19 at 01:30 Morphine Sulfate (morphine) 2 mg Q4H PRN IV .SEVERE PAIN 7-10 Last administered on 03/04/19 06:33; Admin Dose 2 MG; Start 02/21/19 at 01:30 Docusate Sodium (Colace) 100 mg Q12H PRN PO .CONSTIPATION Last administered on 02/25/19 08:51; Admin Dose 100 MG; Start 02/21/19 at 01:30 Magnesium Hydroxide (Milk Of Mag) 30 ml DAILY PRN PO .CONSTIPATION; Start 02/21/19 at 01:30 Heparin Sodium (Porcine) (Heparin (5000 Units/1ml)) 5,000 unit Q12 SC Last administered on 03/04/19at 09:39; Admin Dose 5,000 UNIT; Start 02/21/19 at 09:00 Albuterol/ Ipratropium (Duoneb) 3 ml Q4H RESP THERAPY PRN HHN SHORTNESS OF BREATH; Start 02/21/19 at 01:30 Hydralazine HCl (Apresoline) 10 mg Q6H PRN IV ELEVATED BLOOD PRESSURE; Start 02/21/19 at 01:30 Nitroglycerin (Nitroglycerin (Sl Tab) 0.4 Mg) 1 tab Q5M PRN SL ANGINA; Start 02/21/19 at 01:30 Ferrous Sulfate (Ferrous Sulfate (Ec)) 325 mg DAILY PO Last administered on 03/04/19 09:32; Admin Dose 325 MG; Start 02/21/19 at 09:00 Guaifenesin (Robitussin Liquid Cup) 200 mg Q4H PRN PO COUGH Last administered on 03/04/19 03:52; Admin Dose 200 MG; Start 02/22/19 at 14:30 Polyethylene Glycol (Miralax) 17 gm BID PO Last administered on 03/04/19 09:32 ; Admin Dose 17 GM; Start 02/24/19 at 21:00 Bisacodyl (Dulcolax) 10 mg DAILY PRN PO CONSTIPATION; Start 02/24/19 at 15:30 Famotidine (Pepcid) 20 mg BID PO Last administered on 03/04/19 09:32; Admin Dose 20 MG; Start 02/26/19 at 21:00 Morphine Sulfate (morphine) 3 mg Q3H PRN IV SEVERE PAIN LEVEL 7-10 Last administered on 03/04/19 10:27; Admin Dose 3 MG; Start 03/02/19 at 10:00 Diphenhydramine HCl (Benadryl) 25 mg Q6H PRN IV allergy Last administered on 03/04/19 09:42; Admin Dose 25 MG; Start 03/03/19 at 10:30 Tobramycin (Tobramycin Iv Per Pharmacy) TOBRAMYCIN PER PHARMACY NOTE XX ; Start 03/03/19 at 16:00 Loratadine (Claritin) 10 mg DAILY PO Last administered on 03/04/19at 09:32; Admin Dose 10 MG; Start 03/03/19 at 17:00 Tobramycin 500 mg/ Dextrose 112.5 ml @ 103.75 mls/ hr Q24H IVPB Last administered on 03/03/19at 18:56; Admin Dose 103.75 MLS/HR; Start 03/03/19 at 18:00 Linezolid (Zyvox) 600 mg BID PO Last administered on 03/04/19at 10:27; Admin Dose 600 MG; Start 03/04/19 at 10:00 Hydromorphone HCl (Dilaudid) 1 mg Q3H PRN IV SEVERE PAIN LEVEL 7-10; Start 03/04/19 at 10:30 Oxycodone/ Acetaminophen (Percocet (5/ 325)) 1 tab Q4H PRN PO MODERATE PAIN LEVEL 4-6; Start 03/04/19 at 10:30 MADDIE SANTIAGO Mar 04, 2019 13:01
--- NOTE | 2019-03-04 13:17 | CONS ---
Assessment/Plan Assessment/Plan Hospital Course (Demo Recall) No acute events overnight patient complaining of left upper quadrant abdominal and flank pain he also had been spiking low-grade fevers with a T-max last night 100.4 WBC 15.5 platelets 5 5054 neutrophils 87.8 BUN 16 creatinine 0.87 Microbiology: Urine culture repeated yesterday preliminary negative. Blood culture on admission grew E. coli ESBL, repeat blood cultures negative Antimicrobials: Patient is on Zyvox and tobramycin, status post meropenem Allergy: Meropenem causes rash Chest x-ray from yesterday revealed pulmonary vascular congestion with small bilateral pleural effusions. Retrocardiac opacity may reflect superimposed up with atelectasis or airspace disease Indwelling: Right chest Port-A-Cath CT abdomen 03/01/19: 1. Splenomegaly slightly increased over the previous with an interval increase in size to the largest large lobulated cystic lesion involving most of the lateral and inferior spleen measuring 12.8 x 11.5 x 6.8 cm and 20 HU in density. 2 other smaller cystic lesions are evident. These lesions could represent abscesses, infected cysts, or hematomas. There is a superficial linear cleft- like lucency seen at the superior tip of the spleen, unchanged. 2. Persistent hepatomegaly with no focal lesion. 3. Vague hypodensities extending to the cortex are seen within the kidneys raising the possibility of bilateral pyelonephritis with no renal abscess or urinary outflow obstruction evident. 4. Interval development of a small amount of free intraperitoneal fluid seen within the pelvic inferior peritoneal reflection which measures 8 HU. No free air is evident. There is a tiny fat containing umbilical hernia. 5. There is no evidence of bowel obstruction or inflammation. 6. Increasing subsegmental atelectasis involving the left lower lobe with disc oid atelectasis involving the right lower lobe. There has been interval development of a small to moderate left pleural fluid accumulation which measures 22 HU and is therefore is not simple fluid. 6. Cardiomegaly with a trace of pericardial effusion. Catheter artifact is noted within the superior vena cava. 7. 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 _ Physical examination: This is well-nourished ill-appearing middle-aged man who is in no distress. Head atraumatic normocephalic neck is supple chest rise symmetrical breath sounds diminished to bases heart: S1-S2 abdomen obese soft bowel sounds present extremities with trace edema Assessment: 1. Sepsis with recurrent bacteremia 2. Splenomegaly with increase in size cystic lesions ?abscess? splenic infarct KALEY negative 3. B pleural effusion, possible pneumonia 5. Chronic anemia 6. History of E. coli ESBL and Citrobacter bacteremia on January 31, 2019 7. Status post open hemorrhoidectomy 01/27/19 8. Hives possibly allergic reaction to Merrem Plan: Clinically unchanged, continue antibiotics, repeat blood cultures, follow chest x-ray in a.m., follow surgical recommendations, continue pain management Consultation Date/Type/Reason Admit Date/Time Feb 20, 2019 at 23:21 Initial Consult Date Type of Consult id Requesting Provider: DANIELA BRUNSON Date/Time of Note DATE: 03/04/19 TIME: 13:14 Exam/Review of Systems Exam Vitals Vital Signs Date Temp Pulse Resp B/P (MAP) Pulse Ox O2 O2 Flow FiO2 Time Delivery Rate 03/04/19 98.2 84 17 102/61 96 Room Air 07:23 (75) 03/04/19 2.0 02:51 Intake and Output 03/03/19 03/03/19 03/04/19 1515:00 23:00 07:00 IntakeIntake Total 50 ml 612.5 ml BalanceBalance 50 ml 612.5 ml Results Result Diagram: 03/04/19 0429 03/04/19 0429 Results 24hrs Laboratory Tests Test 03/04/19 02:10 03/04/19 04:29 Random Tobramycin Level 5.9 White Blood Count 15.5 H Red Blood Count 4.39 L Hemoglobin 10.5 L Hematocrit 34.9 L Mean Corpuscular Volume 79.5 L Mean Corpuscular Hemoglobin 23.9 L Mean Corpuscular Hemoglobin Concent 30.1 L Red Cell Distribution Width 21.7 H Platelet Count 544 H Mean Platelet Volume 11.3 H Immature Granulocytes % 0.500 H Neutrophils % 87.8 H Lymphocytes % 6.8 L Monocytes % 4.3 Eosinophils % 0.5 Basophils % 0.1 Nucleated Red Blood Cells % 0.0 Immature Granulocytes # 0.070 H Neutrophils # 13.6 H Lymphocytes # 1.1 Monocytes # 0.7 Eosinophils # 0.1 Basophils # 0.0 Nucleated Red Blood Cells # 0.0 Sodium Level 135 Potassium Level 4.8 Chloride Level 96 L Carbon Dioxide Level 28 Anion Gap 11 Blood Urea Nitrogen 16 Creatinine 0.87 Est Glomerular Filtrat Rate mL/min > 60 Glucose Level 106 Calcium Level 8.8 Medications Medication Current Medications IV Flush (NS 3 ml) 3 ml PER PROTOCOL IV Last administered on 02/25/19 08:55; Admin Dose 3 ML; Start 02/21/19 at 01:30 Ondansetron HCl (Zofran Inj) 4 mg Q6H PRN IV NAUSEA/VOMITING Last administered on 03/01/19 20:32; Admin Dose 4 MG; Start 02/21/19 at 01:30 Acetaminophen (Tylenol Tab) 650 mg Q6H PRN PO .PAIN 1-3 OR TEMP Last administered on 03/04/19 02:19; Admin Dose 650 MG; Start 02/21/19 at 01:30 Acetaminophen/ Hydrocodone Bitart ([place] (5/325)) 1 tab Q6H PRN PO .MOD PAIN 4- 6 Last administered on 03/04/19 04:31; Admin Dose 1 TAB; Start 02/21/19 at 01:30 Morphine Sulfate (morphine) 2 mg Q4H PRN IV .SEVERE PAIN 7-10 Last administered on 03/04/19 06:33; Admin Dose 2 MG; Start 02/21/19 at 01:30 Docusate Sodium (Colace) 100 mg Q12H PRN PO .CONSTIPATION Last administered on 02/25/19 08:51; Admin Dose 100 MG; Start 02/21/19 at 01:30 Magnesium Hydroxide (Milk Of Mag) 30 ml DAILY PRN PO .CONSTIPATION; Start 02/21/19 at 01:30 Heparin Sodium (Porcine) (Heparin (5000 Units/1ml)) 5,000 unit Q12 SC Last administered on 03/04/19 09:39; Admin Dose 5,000 UNIT; Start 02/21/19 at 09:00 Albuterol/ Ipratropium (Duoneb) 3 ml Q4H RESP THERAPY PRN HHN SHORTNESS OF BREATH; Start 02/21/19 at 01:30 Hydralazine HCl (Apresoline) 10 mg Q6H PRN IV ELEVATED BLOOD PRESSURE; Start 02/21/19 at 01:30 Nitroglycerin (Nitroglycerin (Sl Tab) 0.4 Mg) 1 tab Q5M PRN SL ANGINA; Start 02/21/19 at 01:30 Ferrous Sulfate (Ferrous Sulfate (Ec)) 325 mg DAILY PO Last administered on 03/04/19 09:32; Admin Dose 325 MG; Start 02/21/19 at 09:00 Guaifenesin (Robitussin Liquid Cup) 200 mg Q4H PRN PO COUGH Last administered on 03/04/19 03:52; Admin Dose 200 MG; Start 02/22/19 at 14:30 Polyethylene Glycol (Miralax) 17 gm BID PO Last administered on 03/04/19 09:32; Admin Dose 17 GM; Start 02/24/19 at 21:00 Bisacodyl (Dulcolax) 10 mg DAILY PRN PO CONSTIPATION; Start 02/24/19 at 15:30 Famotidine (Pepcid) 20 mg BID PO Last administered on 03/04/19 09:32; Admin Dose 20 MG; Start 02/26/19 at 21:00 Morphine Sulfate (morphine) 3 mg Q3H PRN IV SEVERE PAIN LEVEL 7-10 Last administered on 03/04/19 10:27; Admin Dose 3 MG; Start 03/02/19 at 10:00 Diphenhydramine HCl (Benadryl) 25 mg Q6H PRN IV allergy Last administered on 03/04/19 09:42; Admin Dose 25 MG; Start 03/03/19 at 10:30 Tobramycin (Tobramycin Iv Per Pharmacy) TOBRAMYCIN PER PHARMACY NOTE XX ; Start 03/03/19 at 16:00 Loratadine (Claritin) 10 mg DAILY PO Last administered on 03/04/19 09:32; Admin Dose 10 MG; Start 03/03/19 at 17:00 Tobramycin 500 mg/ Dextrose 112.5 ml @ 103.75 mls/ hr Q24H IVPB Last administered on 03/03/19 18:56; Admin Dose 103.75 MLS/HR; Start 03/03/19 at 18:00 Linezolid (Zyvox) 600 mg BID PO Last administered on 03/04/19 10:27; Admin Dose 600 MG; Start 03/04/19 at 10:00 Hydromorphone HCl (Dilaudid) 1 mg Q3H PRN IV SEVERE PAIN LEVEL 7-10; Start 03/04/19 at 10:30 Oxycodone/ Acetaminophen (Percocet (5/ 325)) 1 tab Q4H PRN PO MODERATE PAIN LEVEL 4-6; Start 03/04/19 at 10:30 JAYRO SANTIAGO NP Mar 04, 2019 13:17
[2019-03-04 13:46] VITALS: BP 118/68; PULSE 103; RESP 18
--- NOTE | 2019-03-04 14:38 | PN ---
Date/Time of Note Date/Time of Note DATE: 03/04/19 TIME: 14:33 Assessment/Plan Lines/Catheters IV Catheter Type (from [facility] [place] (from [facility]): No Assessment/Plan Chief Complaint/Hosp Course 1. Splenic abnormality on CT with possible abscess versus hematoma versus cyst: reviewed ct with radiologist: probable splenic infarct; since now w leukocytosis and fevers reviewed CT w Radiologist who believes it is abscess> will order for ir drain 2. Bacteremia with ESBL and Cytrobacter, concern for endocarditis> johana today 3. Sepsis secondary to above (bowel, uti, spleen, cardiac valves, recent surgery), resolved (labs/vitals/hd stable) -continue IV antibiotics -IV fluids -continue supportive measures -continue aggressive pain control -Possible need for splenectomy if does not improve > immunizations 4. Anemia stable 5. BMI 33 -diet/exercise optimization 6. Hives:? Etiology:? Allergic reaction -Per medical/ID team Thank you. Patient seen and examined in collaboration with Dr. Yuriy Wu. Subjective 24 Hr Interval Summary Continues to have abdominal pain. Fevers and wbc elevated. No chills, sob, congested cough, cp, palpitations, metz, dizziness, n/v/d/dysuria. Exam/Review of Systems Vital Signs Vitals Vital Signs Date Temp Pulse Resp B/P (MAP) Pulse Ox O2 O2 Flow FiO2 Time Delivery Rate 03/04/19 100.3 103 18 118/68 96 Nasal 13:46 (85) Cannula 03/04/19 2.0 02:51 Intake and Output 03/03/19 03/03/19 03/04/19 1515:00 23:00 07:00 IntakeIntake Total 50 ml 612.5 ml BalanceBalance 50 ml 612.5 ml Exam Free Text/Dictation Constitutional: alert, oriented, distress (Minimal mainly due to pain), obese Psych: anxiety; No confusion Head: normocephalic, atraumatic Eyes: nl conjunctiva, EOMI, PERRL; No icteric ENMT: nl external ears & nose, nl lips & teeth Neck: supple, non-tender; No jvd Respiratory: normal air movement; No labored breathing, No wheezing Cardiovascular: regular rate and rhythm; No edema Gastrointestinal: soft, distended, tender (Left abdomen, mostly upper); No rebound or guarding Musculoskeletal: No nl gait and stance, No joint tenderness Extremities: normal pulses; No calf tenderness, No edema Neurological: nl mental status, nl speech Skin: nl turgor; hives No diaphoresis Lymph: nl lymph nodes Results Result Diagram: 03/04/19 0429 03/04/19 0429 BRUNO SALDANA NP Mar 04, 2019 14:38
[2019-03-04] MEDS: TOBRAMYCIN 500 MG in DEXTROSE 5% 100 ML IVPB SCH (18:22)
[2019-03-04] MEDS: HYDROmorphONE 1 MG/ML SYG IV PRN ×2 (18:22→21:20)
[2019-03-04] MEDS: KETOROLAC 30 MG INJ IV SCH (18:31)
[2019-03-04] MEDS: METHYLPREDNISOLONE 125 MG INJ IV SCH (18:31)
[2019-03-04 19:33] VITALS: BP 110/61; PULSE 96; RESP 18
[2019-03-05] VITALS (9 sets, daily range): BP systolic 99–133; BP diastolic 55–86; PULSE 56–79; RESP 17–18
[2019-03-05] MEDS: HYDROmorphONE 0.2 MG/ML PCA IV SCH ×5 (00:20→20:37)
[2019-03-05] MEDS: METHYLPREDNISOLONE 125 MG INJ IV SCH ×4 (00:22→17:56)
[2019-03-05] MEDS: DIPHENHYDRAMINE 50 MG INJ IV PRN (00:22)
[2019-03-05] MEDS: KETOROLAC 30 MG INJ IV SCH ×4 (05:56→17:56)
[2019-03-05] MEDS: LORATADINE 10 MG TAB PO SCH (09:00)
[2019-03-05] MEDS: HEPARIN 5,000 UNIT/1 ML VIAL SC SCH ×2 (09:00→21:44)
[2019-03-05] MEDS: POLYETHYLENE GLYCOL 17 GM PACKET PO SCH ×2 (09:00→21:43)
[2019-03-05] MEDS: FERROUS SULFATE (EC) 325 MG TAB PO SCH (09:00)
[2019-03-05] MEDS: ZYVOX 600 MG TAB PO SCH ×2 (09:00→21:43)
[2019-03-05] MEDS: FAMOTIDINE 20 MG TAB PO SCH ×2 (09:00→21:43)
[2019-03-05] MEDS ORDERED: LIDOCAINE 1% (MDV) 20 ML INJ ONE (09:04)
[2019-03-05] MEDS ORDERED: FENTAnyl 50 MCG/ML VIAL ONE (09:45)
--- NOTE | 2019-03-05 09:47 | PN ---
Date/Time of Note Date/Time of Note DATE: 03/05/19 TIME: 09:44 Assessment/Plan Lines/Catheters IV Catheter Type (from Nrs): PORTACATH Bah in Place (from Nrs): No Assessment/Plan Chief Complaint/Hosp Course 1. Splenic abnormality on CT with possible abscess versus hematoma versus cyst: reviewed ct with radiologist: probable splenic infarct; since now w leukocytosis and fevers reviewed CT again w Radiologist who believes it is abscess> will order for ir drain> pending today 2. Bacteremia with ESBL and Cytrobacter, concern for endocarditis> status post KALEY 3. Sepsis secondary to above (bowel, uti, spleen, cardiac valves, recent surgery), improved (labs/vitals/hd stable) -continue IV antibiotics -IV fluids -continue supportive measures -continue aggressive pain control -Possible need for splenectomy if does not improve > immunizations 4. Anemia stable 5. BMI 33 -diet/exercise optimization 6. Hives:? Etiology:? Allergic reaction -Per medical/ID team 7. Abdominal pain secondary to above -Pain management per pain specialist Thank you. Patient seen and examined in collaboration with Dr. Yuriy Wu. Subjective 24 Hr Interval Summary Seen by pain management and started on STATION REPAIRER Dilaudid. More comfortable. Pending abscess drainage by IR. WBC normalized. No fevers, chills, sob, congested cough, cp, palpitations, metz, dizziness, nausea, vomiting, diarrhea, dysuria. Exam/Review of Systems Vital Signs Vitals Vital Signs Date Temp Pulse Resp B/P (MAP) Pulse Ox O2 O2 Flow FiO2 Time Delivery Rate 03/05/19 61 18 110/61 96 Nasal 09:00 (77) Cannula 03/05/19 97.0 07:40 03/05/19 2.0 05:42 Intake and Output 03/04/19 03/04/19 03/05/19 1515:00 23:00 07:00 IntakeIntake Total 672.5 ml BalanceBalance 672.5 ml Exam Free Text/Dictation Constitutional: alert, oriented, distress (Minimal mainly due to pain), obese Psych: anxiety; No confusion Head: normocephalic, atraumatic Eyes: nl conjunctiva, EOMI, PERRL; No icteric ENMT: nl external ears & nose, nl lips & teeth Neck: supple, non-tender; No jvd Respiratory: normal air movement; No labored breathing, No wheezing Cardiovascular: regular rate and rhythm; No edema Gastrointestinal: soft, distended, tender (Left abdomen, mostly upper); No rebound or guarding Musculoskeletal: No nl gait and stance, No joint tenderness Extremities: normal pulses; No calf tenderness, No edema Neurological: nl mental status, nl speech Skin: nl turgor; hives No diaphoresis Lymph: nl lymph nodes Results Result Diagram: 03/05/19 0438 03/05/19 0438 BRUNO SALDANA NP Mar 05, 2019 09:47
--- NOTE | 2019-03-05 11:18 | CONS ---
Assessment/Plan Assessment/Plan Hospital Course (Demo Recall) IMPRESSION: 1. Bacteremia, assess for possible intracardiac source of infection or endocarditis.- most recent blood cultures remain negative to date. 2. Abnormal electrocardiogram with borderline inferior Q's, but no signs of progression of significant heart block or anything being indicative of a myocardial spread of infection. 3. Possible splenic abscess, question embolic source. 4. Recent hemorrhoidectomy. 5. Leukocytosis with defervescence. 6. Fevers with defervescence, on broad spectrum antibiotics. 7. Chronic rectal bleeding. Recc: -Continue abx's and f/u cx data -s/p KALEY with no definite findings of vegetations -will sign off reconsult as necessary Consultation Date/Type/Reason Admit Date/Time Feb 20, 2019 at 23:21 Initial Consult Date 02/26/19 Type of Consult Cardiology Reason for Consultation bacteremia Requesting Provider: DANIELA BRUNSON Date/Time of Note DATE: 03/05/19 TIME: 11:17 Exam/Review of Systems Vital Signs Vitals Vital Signs Date Temp Pulse Resp B/P (MAP) Pulse Ox O2 O2 Flow FiO2 Time Delivery Rate 03/05/19 Nasal 2.0 09:00 Cannula 03/05/19 61 18 110/61 96 09:00 (77) 03/05/19 97.0 07:40 Intake and Output 03/04/19 03/04/19 03/05/19 1515:00 23:00 07:00 IntakeIntake Total 672.5 ml BalanceBalance 672.5 ml Exam Exam Review of Systems: CONSTITUTIONAL: No fevers, chills. PULMONARY: No sob CARDIOVASCULAR: No chest pain/palpitations GASTROINTESTINAL: No nausea/vomiting. GENITOURINARY: No hematuria/dysuria. MUSCULOSKELETAL: No myagias/arthalgias. PSYCHIATRIC: The patient denies depression. NEUROLOGIC: No weakness Constitutional: alert Psych: no complaints Head: normocephalic ENMT: mucosa pink and moist Neck: supple, jvd (8 cm water) Respiratory: clear to auscultation Cardiovascular: regular rate and rhythm Gastrointestinal: soft, non-tender Musculoskeletal: muscle tone (normal) Extremities: edema (none) Labs Result Diagram: 03/05/19 0438 03/05/19 0438 Results 24hrs Laboratory Tests Test 03/04/19 15:06 03/05/19 04:38 Prothrombin Time 17.8 H Prothrombin Time Ratio 1.4 INR International Normalized Ratio 1.46 White Blood Count 8.8 # Red Blood Count 4.16 L Hemoglobin 9.9 L Hematocrit 32.8 L Mean Corpuscular Volume 78.8 L Mean Corpuscular Hemoglobin 23.8 L Mean Corpuscular Hemoglobin Concent 30.2 L Red Cell Distribution Width 21.0 H Platelet Count 467 H Mean Platelet Volume 10.8 H Immature Granulocytes % 0.300 Neutrophils % Segmented Neutrophils % (Manual) 98 H Lymphocytes % Lymphocytes % (Manual) 2 L Monocytes % Eosinophils % Basophils % Nucleated Red Blood Cells % 0.0 Immature Granulocytes # 0.030 Neutrophils # Lymphocytes (Manual) 0.1 L Lymphocytes # Monocytes # Eosinophils # Basophils # Nucleated Red Blood Cells # Platelet Estimate NORMAL Polychromasia 3+ Poikilocytosis 2+ Anisocytosis 2+ Microcytosis 2+ Spherocytes 1+ Ovalocytes 1+ Sodium Level 136 Potassium Level 4.9 Chloride Level 98 Carbon Dioxide Level 28 Anion Gap 10 Blood Urea Nitrogen 29 #H Creatinine 0.92 Est Glomerular Filtrat Rate mL/min > 60 Glucose Level 209 # Calcium Level 8.8 Medications Medications Current Medications IV Flush (NS 3 ml) 3 ml PER PROTOCOL IV Last administered on 02/25/19 08:55; Admin Dose 3 ML; Start 02/21/19 at 01:30 Ondansetron HCl (Zofran Inj) 4 mg Q6H PRN IV NAUSEA/VOMITING Last administered on 03/01/19at 20:32; Admin Dose 4 MG; Start 02/21/19 at 01:30 Docusate Sodium (Colace) 100 mg Q12H PRN PO .CONSTIPATION Last administered on 02/25/19 08:51; Admin Dose 100 MG; Start 02/21/19 at 01:30 Magnesium Hydroxide (Milk Of Mag) 30 ml DAILY PRN PO .CONSTIPATION; Start 02/21/19 at 01:30 Heparin Sodium (Porcine) (Heparin (5000 Units/1ml)) 5,000 unit Q12 SC Last administered on 03/04/19at 21:30; Admin Dose 5,000 UNIT; Start 02/21/19 at 09:00 Albuterol/ Ipratropium (Duoneb) 3 ml Q4H RESP THERAPY PRN HHN SHORTNESS OF BREATH; Start 02/21/19 at 01:30 Hydralazine HCl (Apresoline) 10 mg Q6H PRN IV ELEVATED BLOOD PRESSURE; Start 02/21/19 at 01:30 Nitroglycerin (Nitroglycerin (Sl Tab) 0.4 Mg) 1 tab Q5M PRN SL ANGINA; Start 02/21/19 at 01:30 Ferrous Sulfate (Ferrous Sulfate (Ec)) 325 mg DAILY PO Last administered on 03/04/19at 09:32; Admin Dose 325 MG; Start 02/21/19 at 09:00 Guaifenesin (Robitussin Liquid Cup) 200 mg Q4H PRN PO COUGH Last administered on 03/04/19at 03:52; Admin Dose 200 MG; Start 02/22/19 at 14:30 Polyethylene Glycol (Miralax) 17 gm BID PO Last administered on 03/04/19at 21:20; Admin Dose 17 GM; Start 02/24/19 at 21:00 Bisacodyl (Dulcolax) 10 mg DAILY PRN PO CONSTIPATION; Start 02/24/19 at 15:30 Famotidine (Pepcid) 20 mg BID PO Last administered on 03/04/19at 21:20; Admin Dose 20 MG; Start 02/26/19 at 21:00 Diphenhydramine HCl (Benadryl) 25 mg Q6H PRN IV allergy Last administered on 03/05/19at 00:22; Admin Dose 25 MG; Start 03/03/19 at 10:30 Tobramycin (Tobramycin Iv Per Pharmacy) TOBRAMYCIN PER PHARMACY NOTE XX ; Start 03/03/19 at 16:00 Loratadine (Claritin) 10 mg DAILY PO Last administered on 03/04/19at 09:32; Admin Dose 10 MG; Start 03/03/19 at 17:00 Tobramycin 500 mg/ Dextrose 112.5 ml @ 103.75 mls/ hr Q24H IVPB Last administered on 03/04/19at 18:22; Admin Dose 103.75 MLS/HR; Start 03/03/19 at 18:00 Linezolid (Zyvox) 600 mg BID PO Last administered on 03/04/19at 21:20; Admin Dose 600 MG; Start 03/04/19 at 10:00 Miscellaneous Information (*Rx Drug Level Order Reminder*) 1 1700 ONCE XX ; Start 03/05/19 at 17:00; Stop 03/05/19 at 17:01 Hydromorphone HCl (Dilaudid [employer]IONAL EXTENSION SERVICE SPECIALIST) 1.5 MG/HR CONTINUOUS RATE ... Q4PCA IV Last administered on 03/05/19at 08:51; Admin Dose 6 MG; Start 03/04/19 at 19:00 Hydromorphone HCl (Dilaudid) 1 mg Q2 PRN IV SEVERE PAIN LEVEL 7-10 Last administered on 03/04/19at 21:20; Admin Dose 1 MG; Start 03/04/19 at 18:00 Ketorolac Tromethamine (Toradol) 30 mg Q6H IV Last administered on 03/05/19at 05:56; Admin Dose 30 MG; Start 03/04/19 at 18:00; Stop 03/07/19 at 17:59 Methylprednisolone Sodium Succinate (Solu-Medrol) 125 mg Q6 IV Last administered on 03/05/19at 05:56; Admin Dose 125 MG; Start 03/04/19 at 18:00 MADDIE SANTIAGO Mar 05, 2019 11:18
--- NOTE | 2019-03-05 12:22 | PN ---
Date/Time of Note Date/Time of Note DATE: 03/05/19 TIME: 12:18 Assessment/Plan VTE Prophylaxis Risk score (from [facility])>0 risk: 3 SCD applied (from [facility]): No SCD contraindicated: other Pharmacological prophylaxis: heparin Lines/Catheters IV Catheter Type (from [facility]): LIZBET CATH Urinary Cath still in place: No Assessment/Plan Hospital Course 1. Status post septic shock. -Status post IV pressors. - Culture showing E. coli ESBL bacteremia. - ABX regimen per ID 2. Multiple low-attenuation splenic lesions. - CT abd 02/20/19: Multiple low attenuation splenic lesions which are new compared to prior examination and may be infectious/inflammatory in etiology such as abscesses. A less likely etiology include splenic infarcts. - Splenic abscess versus infarcts, suspect secondary to recent bacteremia. - Transthoracic echocardiogram negative for any embolic source. - Repeat CT abd imaging 03/01/19: Splenomegaly slightly increased over the previous with an interval increase in size to the largest large lobulated cystic lesion involving most of the lateral and inferior spleen measuring 12.8 x 11.5 x 6.8 cm and 20 HU in density. 2 other smaller cystic lesions are evident. These lesions could represent abscesses, infected cysts, or hematomas. There is a superficial linear cleft-like lucency seen at the superior tip of the spleen, unchanged. - s/p IR drainage 03.05.19: Successful percutaneous drainage of a splenic fluid collection. Approximately 120 cc of thick dark red material was aspirated - f/u culture 3. Possible underlying infective endocarditis. - s/p KALEY 03.04.19: No definite findings of intracardiac source of infection or endocarditis - continue abx 4. Chronic rectal bleeding. - transfuse blood products prn - monitor 5. Iron deficiency. - continue on iron 6. Suspect allergic reaction - improved - etiology unknown. ABX? - f/u ID for use of steroid - antihistamine prn DISPO/PLAN: continue abx/analgesics. drain in place. patient reports less pain. monitor for further clinical improvement Discussed plan of care with Dr. Luo Result Diagram: 03/05/19 0438 03/05/19 0438 Results 24hrs Laboratory Tests Test 03/04/19 15:06 03/05/19 04:38 Prothrombin Time 17.8 H Prothrombin Time Ratio 1.4 INR International Normalized Ratio 1.46 White Blood Count 8.8 # Red Blood Count 4.16 L Hemoglobin 9.9 L Hematocrit 32.8 L Mean Corpuscular Volume 78.8 L Mean Corpuscular Hemoglobin 23.8 L Mean Corpuscular Hemoglobin Concent 30.2 L Red Cell Distribution Width 21.0 H Platelet Count 467 H Mean Platelet Volume 10.8 H Immature Granulocytes % 0.300 Neutrophils % Segmented Neutrophils % (Manual) 98 H Lymphocytes % Lymphocytes % (Manual) 2 L Monocytes % Eosinophils % Basophils % Nucleated Red Blood Cells % 0.0 Immature Granulocytes # 0.030 Neutrophils # Lymphocytes (Manual) 0.1 L Lymphocytes # Monocytes # Eosinophils # Basophils # Nucleated Red Blood Cells # Platelet Estimate NORMAL Polychromasia 3+ Poikilocytosis 2+ Anisocytosis 2+ Microcytosis 2+ Spherocytes 1+ Ovalocytes 1+ Sodium Level 136 Potassium Level 4.9 Chloride Level 98 Carbon Dioxide Level 28 Anion Gap 10 Blood Urea Nitrogen 29 #H Creatinine 0.92 Est Glomerular Filtrat Rate mL/min > 60 Glucose Level 209 # Calcium Level 8.8 Subjective 24 Hr Interval Summary Free Text/Dictation Reports less pain. Status post IR intervention with drain in place Exam/Review of Systems Exam Vitals Vital Signs Date Temp Pulse Resp B/P (MAP) Pulse Ox O2 O2 Flow FiO2 Time Delivery Rate 03/05/19 18 11:38 03/05/19 Nasal 2.0 09:00 Cannula 03/05/19 61 110/61 96 09:00 (77) 03/05/19 97.0 07:40 Intake and Output 03/04/19 03/04/19 03/05/19 1515:00 23:00 07:00 IntakeIntake Total 672.5 ml BalanceBalance 672.5 ml Exam Constitutional: alert, oriented Head: normocephalic Eyes: nl conjunctiva Respiratory: clear to auscultation, normal air movement Cardiovascular: regular rate and rhythm Gastrointestinal: soft, tender on left flank, drain in place Neurological: MACHINE FUR CLEANER II-XII intact, nl mental status, nl speech Skin: nl turgor Results Results 24hrs Laboratory Tests Test 03/04/19 15:06 03/05/19 04:38 Prothrombin Time 17.8 H Prothrombin Time Ratio 1.4 INR International Normalized Ratio 1.46 White Blood Count 8.8 # Red Blood Count 4.16 L Hemoglobin 9.9 L Hematocrit 32.8 L Mean Corpuscular Volume 78.8 L Mean Corpuscular Hemoglobin 23.8 L Mean Corpuscular Hemoglobin Concent 30.2 L Red Cell Distribution Width 21.0 H Platelet Count 467 H Mean Platelet Volume 10.8 H Immature Granulocytes % 0.300 Neutrophils % Segmented Neutrophils % (Manual) 98 H Lymphocytes % Lymphocytes % (Manual) 2 L Monocytes % Eosinophils % Basophils % Nucleated Red Blood Cells % 0.0 Immature Granulocytes # 0.030 Neutrophils # Lymphocytes (Manual) 0.1 L Lymphocytes # Monocytes # Eosinophils # Basophils # Nucleated Red Blood Cells # Platelet Estimate NORMAL Polychromasia 3+ Poikilocytosis 2+ Anisocytosis 2+ Microcytosis 2+ Spherocytes 1+ Ovalocytes 1+ Sodium Level 136 Potassium Level 4.9 Chloride Level 98 Carbon Dioxide Level 28 Anion Gap 10 Blood Urea Nitrogen 29 #H Creatinine 0.92 Est Glomerular Filtrat Rate mL/min > 60 Glucose Level 209 # Calcium Level 8.8 Medications Medication Current Medications IV Flush (NS 3 ml) 3 ml PER PROTOCOL IV Last administered on 02/25/19at 08:55; Admin Dose 3 ML; Start 02/21/19 at 01:30 Ondansetron HCl (Zofran Inj) 4 mg Q6H PRN IV NAUSEA/VOMITING Last administered on 03/01/19at 20:32; Admin Dose 4 MG; Start 02/21/19 at 01:30 Docusate Sodium (Colace) 100 mg Q12H PRN PO .CONSTIPATION Last administered on 02/25/19at 08:51; Admin Dose 100 MG; Start 02/21/19 at 01:30 Magnesium Hydroxide (Milk Of Mag) 30 ml DAILY PRN PO .CONSTIPATION; Start 02/21/19 at 01:30 Heparin Sodium (Porcine) (Heparin (5000 Units/1ml)) 5,000 unit Q12 SC Last administered on 03/04/19at 21:30; Admin Dose 5,000 UNIT; Start 02/21/19 at 09:00 Albuterol/ Ipratropium (Duoneb) 3 ml Q4H RESP THERAPY PRN HHN SHORTNESS OF BREATH; Start 02/21/19 at 01:30 Hydralazine HCl (Apresoline) 10 mg Q6H PRN IV ELEVATED BLOOD PRESSURE; Start 02/21/19 at 01:30 Nitroglycerin (Nitroglycerin (Sl Tab) 0.4 Mg) 1 tab Q5M PRN SL ANGINA; Start 02/21/19 at 01:30 Ferrous Sulfate (Ferrous Sulfate (Ec)) 325 mg DAILY PO Last administered on 03/04/19at 09:32; Admin Dose 325 MG; Start 02/21/19 at 09:00 Guaifenesin (Robitussin Liquid Cup) 200 mg Q4H PRN PO COUGH Last administered on 03/04/19 03:52; Admin Dose 200 MG; Start 02/22/19 at 14:30 Polyethylene Glycol (Miralax) 17 gm BID PO Last administered on 03/04/19 21:20; Admin Dose 17 GM; Start 02/24/19 at 21:00 Bisacodyl (Dulcolax) 10 mg DAILY PRN PO CONSTIPATION; Start 02/24/19 at 15:30 Famotidine (Pepcid) 20 mg BID PO Last administered on 03/04/19 21:20; Admin Dose 20 MG; Start 02/26/19 at 21:00 Diphenhydramine HCl (Benadryl) 25 mg Q6H PRN IV allergy Last administered on 03/05/19at 00:22; Admin Dose 25 MG; Start 03/03/19 at 10:30 Tobramycin (Tobramycin Iv Per Pharmacy) TOBRAMYCIN PER PHARMACY NOTE XX ; Start 03/03/19 at 16:00 Loratadine (Claritin) 10 mg DAILY PO Last administered on 03/04/19at 09:32; Admin Dose 10 MG; Start 03/03/19 at 17:00 Tobramycin 500 mg/ Dextrose 112.5 ml @ 103.75 mls/ hr Q24H IVPB Last administered on 03/04/19at 18:22; Admin Dose 103.75 MLS/HR; Start 03/03/19 at 18: 00 Linezolid (Zyvox) 600 mg BID PO Last administered on 03/04/19 21:20; Admin Dose 600 MG; Start 03/04/19 at 10:00 Miscellaneous Information (*Rx Drug Level Order Reminder*) 1 1700 ONCE XX ; Start 03/05/19 at 17:00; Stop 03/05/19 at 17:01 Hydromorphone HCl (Dilaudid FARE ENFORCEMENT OFFICER) 1.5 MG/HR CONTINUOUS RATE ... Q4PCA IV Last administered on 03/05/19 08:51; Admin Dose 6 MG; Start 03/04/19 at 19:00 Hydromorphone HCl (Dilaudid) 1 mg Q2 PRN IV SEVERE PAIN LEVEL 7-10 Last administered on 03/04/19 21:20; Admin Dose 1 MG; Start 03/04/19 at 18:00 Ketorolac Tromethamine (Toradol) 30 mg Q6H IV Last administered on 03/05/19 05:56; Admin Dose 30 MG; Start 03/04/19 at 18:00; Stop 03/07/19 at 17:59 Methylprednisolone Sodium Succinate (Solu-Medrol) 125 mg Q6 IV Last administered on 03/05/19 05:56; Admin Dose 125 MG; Start 03/04/19 at 18:00 JANELLE WAGGONER NP Mar 05, 2019 12:22
--- NOTE | 2019-03-05 13:40 | CONS ---
Assessment/Plan Assessment/Plan Hospital Course (Demo Recall) Patient underwent CT-guided splenic fluid drainage with 120 cc of thick dark red material being aspirated. He is alert feels better with less pain he has a left-sided abdominal drainage catheter with large amount cloudy brownish colored drainage. WBC 8.8 platelets 467 BUN 29 creatinine 0.92 Microbiology: Urine culture repeatednegative. Blood culture on admission grew E. coli ESBL, repeat blood cultures negative Antimicrobials: Zyvox and tobramycin, status post meropenem Allergy: Meropenem, causes rash Chest x-ray from yesterday revealed pulmonary vascular congestion with small bilateral pleural effusions. Retrocardiac opacity may reflect superimposed up with atelectasis or airspace disease Indwelling: Right chest Port-A-Cath, left-sided abdominal catheter CT abdomen 03/01/19: 1. Splenomegaly slightly increased over the previous with an interval increase in size to the largest large lobulated cystic lesion involving most of the lateral and inferior spleen measuring 12.8 x 11.5 x 6.8 cm and 20 HU in density. 2 other smaller cystic lesions are evident. These lesions could represent abscesses, infected cysts, or hematomas. There is a superficial linear cleft- like lucency seen at the superior tip of the spleen, unchanged. 2. Persistent hepatomegaly with no focal lesion. 3. Vague hypodensities extending to the cortex are seen within the kidneys raising the possibility of bilateral pyelonephritis with no renal abscess or urinary outflow obstruction evident. 4. Interval development of a small amount of free intraperitoneal fluid seen within the pelvic inferior peritoneal reflection which measures 8 HU. No free air is evident. There is a tiny fat containing umbilical hernia. 5. There is no evidence of bowel obstruction or inflammation. 6. Increasing subsegmental atelectasis involving the left lower lobe with discoid atelectasis involving the right lower lobe. There has been interval development of a small to moderate left pleural fluid accumulation which measures 22 HU and is therefore is not simple fluid. 6. Cardiomegaly with a trace of pericardial effusion. Catheter artifact is noted within the superior vena cava. 7. 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 _ Physical examination: This is well-nourished ill-appearing middle-aged man who is in no distress. Head atraumatic normocephalic neck is supple chest rise symmetrical breath sounds diminished to bases heart: S1-S2 abdomen obese soft bowel sounds present extremities with trace edema Assessment: 1. Sepsis with recurrent bacteremia ===> KALEY negative 2. Splenomegaly with increase in size cystic lesions ?abscess===> s/p CT guided drainage 120 cc 3. B pleural effusion, possible pneumonia 5. Chronic anemia 6. History of E. coli ESBL and Citrobacter bacteremia on January 31, 2019 7. Status post open hemorrhoidectomy 01/27/19 8. Hives possibly allergic reaction to Merrem Plan: Clinically stable, continue antibiotics, follow fluid cultures Consultation Date/Type/Reason Admit Date/Time Feb 20, 2019 at 23:21 Initial Consult Date Type of Consult id Requesting Provider: DANIELA BRUNSON Date/Time of Note DATE: 03/05/19 TIME: 13:37 Exam/Review of Systems Exam Vitals Vital Signs Date Temp Pulse Resp B/P (MAP) Pulse Ox O2 O2 Flow FiO2 Time Delivery Rate 03/05/19 97.5 70 18 133/63 95 Nasal 13:33 (86) Cannula 03/05/19 2.0 09:00 Intake and Output 03/04/19 03/04/19 03/05/19 1515:00 23:00 07:00 IntakeIntake Total 672.5 ml BalanceBalance 672.5 ml Results Result Diagram: 03/05/19 0438 03/05/19 0438 Results 24hrs Laboratory Tests Test 03/04/19 15:06 03/05/19 04:38 Prothrombin Time 17.8 H Prothrombin Time Ratio 1.4 INR International Normalized Ratio 1.46 White Blood Count 8.8 # Red Blood Count 4.16 L Hemoglobin 9.9 L Hematocrit 32.8 L Mean Corpuscular Volume 78.8 L Mean Corpuscular Hemoglobin 23.8 L Mean Corpuscular Hemoglobin Concent 30.2 L Red Cell Distribution Width 21.0 H Platelet Count 467 H Mean Platelet Volume 10.8 H Immature Granulocytes % 0.300 Neutrophils % Segmented Neutrophils % (Manual) 98 H Lymphocytes % Lymphocytes % (Manual) 2 L Monocytes % Eosinophils % Basophils % Nucleated Red Blood Cells % 0.0 Immature Granulocytes # 0.030 Neutrophils # Lymphocytes (Manual) 0.1 L Lymphocytes # Monocytes # Eosinophils # Basophils # Nucleated Red Blood Cells # Platelet Estimate NORMAL Polychromasia 3+ Poikilocytosis 2+ Anisocytosis 2+ Microcytosis 2+ Spherocytes 1+ Ovalocytes 1+ Sodium Level 136 Potassium Level 4.9 Chloride Level 98 Carbon Dioxide Level 28 Anion Gap 10 Blood Urea Nitrogen 29 #H Creatinine 0.92 Est Glomerular Filtrat Rate mL/min > 60 Glucose Level 209 # Calcium Level 8.8 Medications Medication Current Medications IV Flush (NS 3 ml) 3 ml PER PROTOCOL IV Last administered on 02/25/19 08:55; Admin Dose 3 ML; Start 02/21/19 at 01:30 Ondansetron HCl (Zofran Inj) 4 mg Q6H PRN IV NAUSEA/VOMITING Last administered on 03/01/19 20:32; Admin Dose 4 MG; Start 02/21/19 at 01:30 Docusate Sodium (Colace) 100 mg Q12H PRN PO .CONSTIPATION Last administered on 02/25/19 08:51; Admin Dose 100 MG; Start 02/21/19 at 01:30 Magnesium Hydroxide (Milk Of Mag) 30 ml DAILY PRN PO .CONSTIPATION; Start 02/21/19 at 01:30 Heparin Sodium (Porcine) (Heparin (5000 Units/1ml)) 5,000 unit Q12 SC Last administered on 03/04/19 21:30; Admin Dose 5,000 UNIT; Start 02/21/19 at 09:00 Albuterol/ Ipratropium (Duoneb) 3 ml Q4H RESP THERAPY PRN HHN SHORTNESS OF BREATH; Start 02/21/19 at 01:30 Hydralazine HCl (Apresoline) 10 mg Q6H PRN IV ELEVATED BLOOD PRESSURE; Start 02/21/19 at 01:30 Nitroglycerin (Nitroglycerin (Sl Tab) 0.4 Mg) 1 tab Q5M PRN SL ANGINA; Start 02/21/19 at 01:30 Ferrous Sulfate (Ferrous Sulfate (Ec)) 325 mg DAILY PO Last administered on 03/04/19 09:32; Admin Dose 325 MG; Start 02/21/19 at 09:00 Guaifenesin (Robitussin Liquid Cup) 200 mg Q4H PRN PO COUGH Last administered on 03/04/19 03:52; Admin Dose 200 MG; Start 02/22/19 at 14:30 Polyethylene Glycol (Miralax) 17 gm BID PO Last administered on 03/04/19 21:20; Admin Dose 17 GM; Start 02/24/19 at 21:00 Bisacodyl (Dulcolax) 10 mg DAILY PRN PO CONSTIPATION; Start 02/24/19 at 15:30 Famotidine (Pepcid) 20 mg BID PO Last administered on 03/04/19 21:20; Admin Dose 20 MG; Start 02/26/19 at 21:00 Diphenhydramine HCl (Benadryl) 25 mg Q6H PRN IV allergy Last administered on 03/05/19at 00:22; Admin Dose 25 MG; Start 03/03/19 at 10:30 Tobramycin (Tobramycin Iv Per Pharmacy) TOBRAMYCIN PER PHARMACY NOTE XX ; Start 03/03/19 at 16:00 Loratadine (Claritin) 10 mg DAILY PO Last administered on 03/04/19at 09:32; Admin Dose 10 MG; Start 03/03/19 at 17:00 Tobramycin 500 mg/ Dextrose 112.5 ml @ 103.75 mls/ hr Q24H IVPB Last administered on 03/04/19at 18:22; Admin Dose 103.75 MLS/HR; Start 03/03/19 at 18:00 Linezolid (Zyvox) 600 mg BID PO Last administered on 03/04/19 21:20; Admin Dose 600 MG; Start 03/04/19 at 10:00 Miscellaneous Information (*Rx Drug Level Order Reminder*) 1 1700 ONCE XX ; Start 03/05/19 at 17:00; Stop 03/05/19 at 17:01 Hydromorphone HCl (Dilaudid MARBLE CUTTER) 1.5 MG/HR CONTINUOUS RATE ... Q4PCA IV Last administered on 03/05/19at 08:51; Admin Dose 6 MG; Start 03/04/19 at 19:00 Hydromorphone HCl (Dilaudid) 1 mg Q2 PRN IV SEVERE PAIN LEVEL 7-10 Last administered on 03/04/19at 21:20; Admin Dose 1 MG; Start 03/04/19 at 18:00 Ketorolac Tromethamine (Toradol) 30 mg Q6H IV Last administered on 03/05/19at 05:56; Admin Dose 30 MG; Start 03/04/19 at 18:00; Stop 03/07/19 at 17:59 Methylprednisolone Sodium Succinate (Solu-Medrol) 125 mg Q6 IV Last administered on 03/05/19at 05:56; Admin Dose 125 MG; Start 03/04/19 at 18:00 JAYRO SANTIAGO NP Mar 05, 2019 13:40
[2019-03-05] MEDS: TOBRAMYCIN 500 MG in DEXTROSE 5% 100 ML IVPB SCH (17:59)
[2019-03-06] VITALS (8 sets, daily range): BP systolic 96–129; BP diastolic 56–71; PULSE 57–70; RESP 16–20
[2019-03-06] MEDS: HYDROmorphONE 0.2 MG/ML PCA IV SCH ×6 (00:51→21:36)
[2019-03-06] MEDS: KETOROLAC 30 MG INJ IV SCH ×4 (05:58→17:42)
[2019-03-06] MEDS: METHYLPREDNISOLONE 125 MG INJ IV SCH ×4 (05:58→17:43)
[2019-03-06] MEDS: FERROUS SULFATE (EC) 325 MG TAB PO SCH (08:39)
[2019-03-06] MEDS: LORATADINE 10 MG TAB PO SCH (08:39)
[2019-03-06] MEDS: FAMOTIDINE 20 MG TAB PO SCH ×2 (08:39→21:28)
[2019-03-06] MEDS: ZYVOX 600 MG TAB PO SCH ×2 (08:39→21:28)
[2019-03-06] MEDS: POLYETHYLENE GLYCOL 17 GM PACKET PO SCH ×2 (08:40→21:28)
[2019-03-06] MEDS: HEPARIN 5,000 UNIT/1 ML VIAL SC SCH ×2 (08:43→21:31)
--- NOTE | 2019-03-06 09:22 | CONS ---
Assessment/Plan Assessment/Plan Assessment/Plan (Daily) Brief note Septic shock Endocarditis Severe splenis pain secondary to the above SIRS DilaudidIV [employer]ER dilaudid Toradol Steroid begiin to taper tomorrow Consultation Date/Type/Reason Admit Date/Time Feb 20, 2019 at 23:21 Date/Time of Note DATE: 03/06/19 TIME: 09:21 Past Medical History Home Meds Active Scripts Ciprofloxacin Hcl* (Ciprofloxacin Hcl*) 250 Mg Tablet, 250 MG PO BID for 4 Days, #8 TAB Prov:JOSE R MARIE 02/03/19 Hydrocodone Bit-Acetaminophen (Hydrocodone Bit-APAP) 5-325MG Tablet, 1 TAB PO Q6H PRN for PAIN LEVEL 6-10, #30 TAB Prov:JOSE R MARIE 02/03/19 Pantoprazole* (Protonix*) 40 Mg Tablet.dr, 40 MG PO DAILY for 30 Days, #30 TAB 2 Refills Prov:ALYCE DECKER 01/08/19 Reported Medications Ferrous Sulfate* (Ferrous Sulfate*) 325 Mg Tabec, 325 MG PO DAILY, TAB 01/25/19 Medications Current Medications IV Flush (NS 3 ml) 3 ml PER PROTOCOL IV Last administered on 02/25/19at 08:55; Admin Dose 3 ML; Start 02/21/19 at 01:30 Ondansetron HCl (Zofran Inj) 4 mg Q6H PRN IV NAUSEA/VOMITING Last administered on 03/01/19at 20:32; Admin Dose 4 MG; Start 02/21/19 at 01:30 Docusate Sodium (Colace) 100 mg Q12H PRN PO .CONSTIPATION Last administered on 02/25/19at 08:51; Admin Dose 100 MG; Start 02/21/19 at 01:30 Magnesium Hydroxide (Milk Of Mag) 30 ml DAILY PRN PO .CONSTIPATION; Start 02/21/19 at 01:30 Heparin Sodium (Porcine) (Heparin (5000 Units/1ml)) 5,000 unit Q12 SC Last administered on 03/06/19at 08:43; Admin Dose 5,000 UNIT; Start 02/21/19 at 09:00 Albuterol/ Ipratropium (Duoneb) 3 ml Q4H RESP THERAPY PRN HHN SHORTNESS OF BREATH; Start 02/21/19 at 01:30 Hydralazine HCl (Apresoline) 10 mg Q6H PRN IV ELEVATED BLOOD PRESSURE; Start 02/21/19 at 01:30 Nitroglycerin (Nitroglycerin (Sl Tab) 0.4 Mg) 1 tab Q5M PRN SL ANGINA; Start 02/21/19 at 01:30 Ferrous Sulfate (Ferrous Sulfate (Ec)) 325 mg DAILY PO Last administered on 03/06/19 08:39; Admin Dose 325 MG; Start 02/21/19 at 09:00 Guaifenesin (Robitussin Liquid Cup) 200 mg Q4H PRN PO COUGH Last administered on 03/04/19 03:52; Admin Dose 200 MG; Start 02/22/19 at 14:30 Polyethylene Glycol (Miralax) 17 gm BID PO Last administered on 03/06/19 08:40; Admin Dose 17 GM; Start 02/24/19 at 21:00 Bisacodyl (Dulcolax) 10 mg DAILY PRN PO CONSTIPATION; Start 02/24/19 at 15:30 Famotidine (Pepcid) 20 mg BID PO Last administered on 03/06/19 08:39; Admin Dose 20 MG; Start 02/26/19 at 21:00 Diphenhydramine HCl (Benadryl) 25 mg Q6H PRN IV allergy Last administered on 03/05/19 00:22; Admin Dose 25 MG; Start 03/03/19 at 10:30 Tobramycin (Tobramycin Iv Per Pharmacy) TOBRAMYCIN PER PHARMACY NOTE XX ; Start 03/03/19 at 16:00 Loratadine (Claritin) 10 mg DAILY PO Last administered on 03/06/19 08:39; Admin Dose 10 MG; Start 03/03/19 at 17:00 Tobramycin 500 mg/ Dextrose 112.5 ml @ 103.75 mls/ hr Q24H IVPB Last administered on 03/05/19 17:59; Admin Dose 103.75 MLS/HR; Start 03/03/19 at 18:00 Linezolid (Zyvox) 600 mg BID PO Last administered on 03/06/19 08:39; Admin Dose 600 MG; Start 03/04/19 at 10:00 Hydromorphone HCl (Dilaudid [employer]ER) 1.5 MG/HR CONTINUOUS RATE ... Q4PCA IV Last administered on 03/06/19at 09:02; Admin Dose 6 MG; Start 03/04/19 at 19:00 Hydromorphone HCl (Dilaudid) 1 mg Q2 PRN IV SEVERE PAIN LEVEL 7-10 Last administered on 03/04/19at 21:20; Admin Dose 1 MG; Start 03/04/19 at 18:00 Ketorolac Tromethamine (Toradol) 30 mg Q6H IV Last administered on 03/06/19at 05:58; Admin Dose 30 MG; Start 03/04/19 at 18:00; Stop 03/07/19 at 17:59 Methylprednisolone Sodium Succinate (Solu-Medrol) 125 mg Q6 IV Last administered on 03/06/19at 05:58; Admin Dose 125 MG; Start 03/04/19 at 18:00 Allergies: Coded Allergies: meropenem (Verified Allergy, Unknown, hives, 03/05/19) Past Surgical History Past Surgical Hx: other (Hemorrhoid, right shoulder, knee) Social History Alcohol Use: none Smoking Status: Never smoker Drug Use: none Exam/Review of Systems Exam Vitals Vital Signs Date Temp Pulse Resp B/P (MAP) Pulse Ox O2 O2 Flow FiO2 Time Delivery Rate 03/06/19 2.0 08:09 03/06/19 98.9 57 20 96/59 (71) 95 07:34 03/06/19 Nasal 05:13 Cannula Intake and Output 03/05/19 03/05/19 03/06/19 1515:00 23:00 07:00 IntakeIntake Total 1600 ml 1132.5 ml OutputOutput Total 230 ml 290 ml BalanceBalance 1600 ml 902.5 ml -290 ml Results Result Diagram: 03/06/19 0552 03/06/19 0552 Results 24hrs Laboratory Tests Test 03/05/19 16:56 03/06/19 05:52 Tobramycin Level Trough 0.9 L White Blood Count 13.1 #H Red Blood Count 4.12 L Hemoglobin 9.8 L Hematocrit 32.6 L Mean Corpuscular Volume 79.1 L Mean Corpuscular Hemoglobin 23.8 L Mean Corpuscular Hemoglobin Concent 30.1 L Red Cell Distribution Width 21.3 H Platelet Count 638 #H Mean Platelet Volume 10.9 H Immature Granulocytes % 0.500 H Neutrophils % 91.8 H Lymphocytes % 3.3 L Monocytes % 4.2 Eosinophils % 0.1 Basophils % 0.1 Nucleated Red Blood Cells % 0.0 Immature Granulocytes # 0.060 H Neutrophils # 12.1 H Lymphocytes # 0.4 L Monocytes # 0.6 Eosinophils # 0.0 Basophils # 0.0 Nucleated Red Blood Cells # 0.0 Sodium Level 136 Potassium Level 5.1 Chloride Level 98 Carbon Dioxide Level 28 Anion Gap 10 Blood Urea Nitrogen 47 #H Creatinine 1.33 H Est Glomerular Filtrat Rate mL/min 57 L Glucose Level 133 # Calcium Level 8.8 Medications Medication Current Medications IV Flush (NS 3 ml) 3 ml PER PROTOCOL IV Last administered on 02/25/19 08:55; Admin Dose 3 ML; Start 02/21/19 at 01:30 Ondansetron HCl (Zofran Inj) 4 mg Q6H PRN IV NAUSEA/VOMITING Last administered on 03/01/19 20:32; Admin Dose 4 MG; Start 02/21/19 at 01:30 Docusate Sodium (Colace) 100 mg Q12H PRN PO .CONSTIPATION Last administered on 02/25/19 08:51; Admin Dose 100 MG; Start 02/21/19 at 01:30 Magnesium Hydroxide (Milk Of Mag) 30 ml DAILY PRN PO .CONSTIPATION; Start 02/21/19 at 01:30 Heparin Sodium (Porcine) (Heparin (5000 Units/1ml)) 5,000 unit Q12 SC Last administered on 03/06/19 08:43; Admin Dose 5,000 UNIT; Start 02/21/19 at 09:00 Albuterol/ Ipratropium (Duoneb) 3 ml Q4H RESP THERAPY PRN HHN SHORTNESS OF BREATH; Start 02/21/19 at 01:30 Hydralazine HCl (Apresoline) 10 mg Q6H PRN IV ELEVATED BLOOD PRESSURE; Start 02/21/19 at 01:30 Nitroglycerin (Nitroglycerin (Sl Tab) 0.4 Mg) 1 tab Q5M PRN SL ANGINA; Start 02/21/19 at 01:30 Ferrous Sulfate (Ferrous Sulfate (Ec)) 325 mg DAILY PO Last administered on 03/06/19 08:39; Admin Dose 325 MG; Start 02/21/19 at 09:00 Guaifenesin (Robitussin Liquid Cup) 200 mg Q4H PRN PO COUGH Last administered on 03/04/19 03:52; Admin Dose 200 MG; Start 02/22/19 at 14:30 Polyethylene Glycol (Miralax) 17 gm BID PO Last administered on 03/06/19 08:40; Admin Dose 17 GM; Start 02/24/19 at 21:00 Bisacodyl (Dulcolax) 10 mg DAILY PRN PO CONSTIPATION; Start 02/24/19 at 15:30 Famotidine (Pepcid) 20 mg BID PO Last administered on 03/06/19 08:39; Admin Dose 20 MG; Start 02/26/19 at 21:00 Diphenhydramine HCl (Benadryl) 25 mg Q6H PRN IV allergy Last administered on 03/05/19 00:22; Admin Dose 25 MG; Start 03/03/19 at 10:30 Tobramycin (Tobramycin Iv Per Pharmacy) TOBRAMYCIN PER PHARMACY NOTE XX ; Start 03/03/19 at 16:00 Loratadine (Claritin) 10 mg DAILY PO Last administered on 03/06/19 08:39; Admin Dose 10 MG; Start 03/03/19 at 17:00 Tobramycin 500 mg/ Dextrose 112.5 ml @ 103.75 mls/ hr Q24H IVPB Last admi nistered on 03/05/19 17:59; Admin Dose 103.75 MLS/HR; Start 03/03/19 at 18:00 Linezolid (Zyvox) 600 mg BID PO Last administered on 03/06/19 08:39; Admin Dose 600 MG; Start 03/04/19 at 10:00 Hydromorphone HCl (Dilaudid ICE [employer] SERVER) 1.5 MG/HR CONTINUOUS RATE ... Q4PCA IV Last administered on 03/06/19 09:02; Admin Dose 6 MG; Start 03/04/19 at 19:00 Hydromorphone HCl (Dilaudid) 1 mg Q2 PRN IV SEVERE PAIN LEVEL 7-10 Last administered on 03/04/19 21:20; Admin Dose 1 MG; Start 03/04/19 at 18:00 Ketorolac Tromethamine (Toradol) 30 mg Q6H IV Last administered on 6/22/19at 05:58; Admin Dose 30 MG; Start 03/04/19 at 18:00; Stop 03/07/19 at 17:59 Methylprednisolone Sodium Succinate (Solu-Medrol) 125 mg Q6 IV Last administered on 03/06/19at 05:58; Admin Dose 125 MG; Start 03/04/19 at 18:00 LÁZARO LITTLEJOHN Mar 06, 2019 09:22
--- NOTE | 2019-03-06 09:26 | CONS ---
Assessment/Plan Assessment/Plan Assessment/Plan (Daily) Extreme abdominal discomfort etiology still being worked up Splenic infarct splenic abscesses splenic hematomas and differential diagnosis Begin patient off on ELECTRICAL APPLIANCE REPAIRER Dilaudid, Dilaudid IV push, corticosteroids although there is possibly no major indication for corticosteroids therefore I will taper once diagnosis is confirmed. Consultation Date/Type/Reason Admit Date/Time Feb 20, 2019 at 23:21 Date/Time of Note DATE: 03/06/19 TIME: 09:24 Hx of Present Illness 62--year-old gentleman with a history of septic shock. In extreme pain at this time during my examination work-up has included CT scan which shows as noted below. At the time I am seeing him patient is in extreme pain complaining of left upper to quadrant discomfort he is unable to eat or drink anything. Complaining of pain which radiates into his back denies nausea vomiting fevers chills chest pain shortness of breath. Differential diagnosis as noted during the CT scan. History of rectal bleeding also prior to his hospitalization patient was in good health. Multiple low-attenuation splenic lesions. - CT abd 02/20/19: Multiple low attenuation splenic lesions which are new compared to prior examination and may be infectious/inflammatory in etiology such as abscesses. A less likely etiology include splenic infarcts. - Splenic abscess versus infarcts, suspect secondary to recent bacteremia. - Transthoracic echocardiogram negative for any embolic source. - Repeat CT abd imaging 03/01/19: Splenomegaly slightly increased over the previous with an interval increase in size to the largest large lobulated cystic lesion involving most of the lateral and inferior spleen measuring 12.8 x 11.5 x 6.8 cm and 20 HU in density. 2 other smaller cystic lesions are evident. These lesions could represent abscesses, infected cysts, or hematomas. There is a superficial linear cleft-like lucency seen at the superior tip of the spleen, unchanged. - s/p Past Medical History Home Meds Active Scripts Ciprofloxacin Hcl* (Ciprofloxacin Hcl*) 250 Mg Tablet, 250 MG PO BID for 4 Days, #8 TAB Prov:JOSE R MARIE 02/03/19 Hydrocodone Bit-Acetaminophen (Hydrocodone Bit-APAP) 5-325MG Tablet, 1 TAB PO Q6H PRN for PAIN LEVEL 6-10, #30 TAB Prov:JOSE R MARIE 02/03/19 Pantoprazole* (Protonix*) 40 Mg Tablet.dr, 40 MG PO DAILY for 30 Days, #30 TAB 2 Refills Prov:ALYCE DECKER 01/08/19 Reported Medications Ferrous Sulfate* (Ferrous Sulfate*) 325 Mg Tabec, 325 MG PO DAILY, TAB 01/25/19 Medications Current Medications IV Flush (NS 3 ml) 3 ml PER PROTOCOL IV Last administered on 02/25/19 08:55; Admin Dose 3 ML; Start 02/21/19 at 01:30 Ondansetron HCl (Zofran Inj) 4 mg Q6H PRN IV NAUSEA/VOMITING Last administered on 03/01/19 20:32; Admin Dose 4 MG; Start 02/21/19 at 01:30 Docusate Sodium (Colace) 100 mg Q12H PRN PO .CONSTIPATION Last administered on 02/25/19 08:51; Admin Dose 100 MG; Start 02/21/19 at 01:30 Magnesium Hydroxide (Milk Of Mag) 30 ml DAILY PRN PO .CONSTIPATION; Start 02/21/19 at 01:30 Heparin Sodium (Porcine) (Heparin (5000 Units/1ml)) 5,000 unit Q12 SC Last administered on 03/06/19at 08:43; Admin Dose 5,000 UNIT; Start 02/21/19 at 09:00 Albuterol/ Ipratropium (Duoneb) 3 ml Q4H RESP THERAPY PRN HHN SHORTNESS OF BREATH; Start 02/21/19 at 01:30 Hydralazine HCl (Apresoline) 10 mg Q6H PRN IV ELEVATED BLOOD PRESSURE; Start 02/21/19 at 01:30 Nitroglycerin (Nitroglycerin (Sl Tab) 0.4 Mg) 1 tab Q5M PRN SL ANGINA; Start 02/21/19 at 01:30 Ferrous Sulfate (Ferrous Sulfate (Ec)) 325 mg DAILY PO Last administered on 03/06/19 08:39; Admin Dose 325 MG; Start 02/21/19 at 09:00 Guaifenesin (Robitussin Liquid Cup) 200 mg Q4H PRN PO COUGH Last administered on 03/04/19 03:52; Admin Dose 200 MG; Start 02/22/19 at 14:30 Polyethylene Glycol (Miralax) 17 gm BID PO Last administered on 03/06/19 08:40; Admin Dose 17 GM; Start 02/24/19 at 21:00 Bisacodyl (Dulcolax) 10 mg DAILY PRN PO CONSTIPATION; Start 02/24/19 at 15:30 Famotidine (Pepcid) 20 mg BID PO Last administered on 03/06/19 08:39; Admin Dose 20 MG; Start 02/26/19 at 21:00 Diphenhydramine HCl (Benadryl) 25 mg Q6H PRN IV allergy Last administered on 03/05/19 00:22; Admin Dose 25 MG; Start 03/03/19 at 10:30 Tobramycin (Tobramycin Iv Per Pharmacy) TOBRAMYCIN PER PHARMACY NOTE XX ; Start 03/03/19 at 16:00 Loratadine (Claritin) 10 mg DAILY PO Last administered on 03/06/19 08:39; Admin Dose 10 MG; Start 03/03/19 at 17:00 Tobramycin 500 mg/ Dextrose 112.5 ml @ 103.75 mls/ hr Q24H IVPB Last administered on 03/05/19 17:59; Admin Dose 103.75 MLS/HR; Start 03/03/19 at 18:00 Linezolid (Zyvox) 600 mg BID PO Last administered on 03/06/19 08:39; Admin Dose 600 MG; Start 03/04/19 at 10:00 Hydromorphone HCl (Dilaudid ELECTR[employer] APPLIANCE REPAIRER) 1.5 MG/HR CONTINUOUS RATE ... Q4PCA IV Last ad ministered on 03/06/19 09:02; Admin Dose 6 MG; Start 03/04/19 at 19:00 Hydromorphone HCl (Dilaudid) 1 mg Q2 PRN IV SEVERE PAIN LEVEL 7-10 Last administered on 03/04/19 21:20; Admin Dose 1 MG; Start 03/04/19 at 18:00 Ketorolac Tromethamine (Toradol) 30 mg Q6H IV Last administered on 03/06/19 05:58; Admin Dose 30 MG; Start 03/04/19 at 18:00; Stop 03/07/19 at 17:59 Methylprednisolone Sodium Succinate (Solu-Medrol) 125 mg Q6 IV Last administered on 03/06/19 05:58; Admin Dose 125 MG; Start 03/04/19 at 18:00 Allergies: Coded Allergies: meropenem (Verified Allergy, Unknown, hives, 03/05/19) Past Surgical History Past Surgical Hx: other (Hemorrhoid, right shoulder, knee) Social History Alcohol Use: none Smoking Status: Never smoker Drug Use: none Exam/Review of Systems Exam Vitals Vital Signs Date Temp Pulse Resp B/P (MAP) Pulse Ox O2 O2 Flow FiO2 Time Delivery Rate 03/06/19 2.0 08:09 03/06/19 98.9 57 20 96/59 (71) 95 07:34 03/06/19 Nasal 05:13 Cannula Intake and Output 03/05/19 03/05/19 03/06/19 1515:00 23:00 07:00 IntakeIntake Total 1600 ml 1132.5 ml OutputOutput Total 230 ml 290 ml BalanceBalance 1600 ml 902.5 ml -290 ml Constitutional: distress, other (Moaning and groaning, diaphoretic) Head: normocephalic, atraumatic; No lacerations, No hematomas, No other Eyes: nl conjunctiva, EOMI, nl lids, nl sclera, PERRL; No icteric, No fundi, disc, No other Respiratory: No clear to auscultation, No normal air movement, No congested cough, No crackles/rales, No diminished breath sounds, No intercostal retraction, No labored breathing, No respirations, No tactile fremitus, No wheezing, No other Gastrointestinal: other (Low active bowel sounds tender in bilateral upper and lower extremities without rebound no bowel sounds nondistended) Neurological: other (Moaning and groaning) Results Result Diagram: 03/06/19 0552 03/06/19 0552 Results 24hrs Laboratory Tests Test 03/05/19 16:56 03/06/19 05:52 Tobramycin Level Trough 0.9 L White Blood Count 13.1 #H Red Blood Count 4.12 L Hemoglobin 9.8 L Hematocrit 32.6 L Mean Corpuscular Volume 79.1 L Mean Corpuscular Hemoglobin 23.8 L Mean Corpuscular Hemoglobin Concent 30.1 L Red Cell Distribution Width 21.3 H Platelet Count 638 #H Mean Platelet Volume 10.9 H Immature Granulocytes % 0.500 H Neutrophils % 91.8 H Lymphocytes % 3.3 L Monocytes % 4.2 Eosinophils % 0.1 Basophils % 0.1 Nucleated Red Blood Cells % 0.0 Immature Granulocytes # 0.060 H Neutrophils # 12.1 H Lymphocytes # 0.4 L Monocytes # 0.6 Eosinophils # 0.0 Basophils # 0.0 Nucleated Red Blood Cells # 0.0 Sodium Level 136 Potassium Level 5.1 Chloride Level 98 Carbon Dioxide Level 28 Anion Gap 10 Blood Urea Nitrogen 47 #H Creatinine 1.33 H Est Glomerular Filtrat Rate mL/min 57 L Glucose Level 133 # Calcium Level 8.8 Medications Medication Current Medications IV Flush (NS 3 ml) 3 ml PER PROTOCOL IV Last administered on 02/25/19 08:55; Admin Dose 3 ML; Start 02/21/19 at 01:30 Ondansetron HCl (Zofran Inj) 4 mg Q6H PRN IV NAUSEA/VOMITING Last administered on 03/01/19 20:32; Admin Dose 4 MG; Start 02/21/19 at 01:30 Docusate Sodium (Colace) 100 mg Q12H PRN PO .CONSTIPATION Last administered on 02/25/19 08:51; Admin Dose 100 MG; Start 02/21/19 at 01:30 Magnesium Hydroxide (Milk Of Mag) 30 ml DAILY PRN PO .CONSTIPATION; Start 02/21/19 at 01:30 Heparin Sodium (Porcine) (Heparin (5000 Units/1ml)) 5,000 unit Q12 SC Last administered on 03/06/19 08:43; Admin Dose 5,000 UNIT; Start 02/21/19 at 09:00 Albuterol/ Ipratropium (Duoneb) 3 ml Q4H RESP THERAPY PRN HHN SHORTNESS OF BREATH; Start 02/21/19 at 01:30 Hydralazine HCl (Apresoline) 10 mg Q6H PRN IV ELEVATED BLOOD PRESSURE; Start 02/21/19 at 01:30 Nitroglycerin (Nitroglycerin (Sl Tab) 0.4 Mg) 1 tab Q5M PRN SL ANGINA; Start 02/21/19 at 01:30 Ferrous Sulfate (Ferrous Sulfate (Ec)) 325 mg DAILY PO Last administered on 03/06/19 08:39; Admin Dose 325 MG; Start 02/21/19 at 09:00 Guaifenesin (Robitussin Liquid Cup) 200 mg Q4H PRN PO COUGH Last administered on 03/04/19 03:52; Admin Dose 200 MG; Start 02/22/19 at 14:30 Polyethylene Glycol (Miralax) 17 gm BID PO Last administered on 03/06/19 08:40; Admin Dose 17 GM; Start 02/24/19 at 21:00 Bisacodyl (Dulcolax) 10 mg DAILY PRN PO CONSTIPATION; Start 02/24/19 at 15:30 Famotidine (Pepcid) 20 mg BID PO Last administered on 03/06/19 08:39; Admin Dose 20 MG; Start 02/26/19 at 21:00 Diphenhydramine HCl (Benadryl) 25 mg Q6H PRN IV allergy Last administered on 03/05/19 00:22; Admin Dose 25 MG; Start 03/03/19 at 10:30 Tobramycin (Tobramycin Iv Per Pharmacy) TOBRAMYCIN PER PHARMACY NOTE XX ; Start 03/03/19 at 16:00 Loratadine (Claritin) 10 mg DAILY PO Last administered on 03/06/19 08:39; Admin Dose 10 MG; Start 03/03/19 at 17:00 Tobramycin 500 mg/ Dextrose 112.5 ml @ 103.75 mls/ hr Q24H IVPB Last administered on 03/05/19 17:59; Admin Dose 103.75 MLS/HR; Start 03/03/19 at 18:00 Linezolid (Zyvox) 600 mg BID PO Last administered on 03/06/19 08:39; Admin Dose 600 MG; Start 03/04/19 at 10:00 Hydromorphone HCl (Dilaudid ELECTRICAL APPLIANCE REPAIRER) 1.5 MG/HR CONTINUOUS RATE ... Q4PCA IV Last ad ministered on 03/06/19 09:02; Admin Dose 6 MG; Start 03/04/19 at 19:00 Hydromorphone HCl (Dilaudid) 1 mg Q2 PRN IV SEVERE PAIN LEVEL 7-10 Last administered on 03/04/19 21:20; Admin Dose 1 MG; Start 03/04/19 at 18:00 Ketorolac Tromethamine (Toradol) 30 mg Q6H IV Last administered on 03/06/19 05:58; Admin Dose 30 MG; Start 03/04/19 at 18:00; Stop 03/07/19 at 17:59 Methylprednisolone Sodium Succinate (Solu-Medrol) 125 mg Q6 IV Last administered on 03/06/19at 05:58; Admin Dose 125 MG; Start 03/04/19 at 18:00 LÁZARO LITTLEJOHN Mar 06, 2019 09:26
--- NOTE | 2019-03-06 10:21 | PN ---
Date/Time of Note Date/Time of Note DATE: 03/06/19 TIME: 10:13 Assessment/Plan VTE Prophylaxis Risk score (from [facility])>0 risk: 4 SCD applied (from [facility]): No SCD contraindicated: low risk/ambulating Pharmacological prophylaxis: heparin Lines/Catheters IV Catheter Type (from [facility]): Port-A-Cath Urinary Cath still in place: No Assessment/Plan Hospital Course 1. Status post septic shock. -Status post IV pressors. - Culture showing E. coli ESBL bacteremia. - ABX regimen per ID 2. Multiple low-attenuation splenic lesions. - CT abd 02/20/19: Multiple low attenuation splenic lesions which are new compared to prior examination and may be infectious/inflammatory in etiology such as abscesses. A less likely etiology include splenic infarcts. - Splenic abscess versus infarcts, suspect secondary to recent bacteremia. - Transthoracic echocardiogram negative for any embolic source. - Repeat CT abd imaging 03/01/19: Splenomegaly slightly increased over the previous with an interval increase in size to the largest large lobulated cystic lesion involving most of the lateral and inferior spleen measuring 12.8 x 11.5 x 6.8 cm and 20 HU in density. 2 other smaller cystic lesions are evident. These lesions could represent abscesses, infected cysts, or hematomas. There is a superficial linear cleft-like lucency seen at the superior tip of the spleen, unchanged. - s/p IR drainage 03.05.19: Successful percutaneous drainage of a splenic fluid collection. Approximately 120 cc of thick dark red material was aspirated - f/u culture 3. Possible underlying infective endocarditis. - s/p KALEY 03.04.19: No definite findings of intracardiac source of infection or endocarditis - continue abx 4. Chronic rectal bleeding. - transfuse blood products prn - monitor 5. Iron deficiency. - continue on iron 6. Suspect allergic reaction - improved - etiology unknown. ABX? - f/u ID for use of steroid - antihistamine prn DISPO/PLAN: continue abx/analgesics. . f/u labs. drain remains in place. appears to be improving. f/u culture Discussed plan of care with Dr. Aguilar Result Diagram: 03/06/19 0552 03/06/19 0552 Results 24hrs Laboratory Tests Test 03/05/19 16:56 03/06/19 05:52 Tobramycin Level Trough 0.9 L White Blood Count 13.1 #H Red Blood Count 4.12 L Hemoglobin 9.8 L Hematocrit 32.6 L Mean Corpuscular Volume 79.1 L Mean Corpuscular Hemoglobin 23.8 L Mean Corpuscular Hemoglobin Concent 30.1 L Red Cell Distribution Width 21.3 H Platelet Count 638 #H Mean Platelet Volume 10.9 H Immature Granulocytes % 0.500 H Neutrophils % 91.8 H Lymphocytes % 3.3 L Monocytes % 4.2 Eosinophils % 0.1 Basophils % 0.1 Nucleated Red Blood Cells % 0.0 Immature Granulocytes # 0.060 H Neutrophils # 12.1 H Lymphocytes # 0.4 L Monocytes # 0.6 Eosinophils # 0.0 Basophils # 0.0 Nucleated Red Blood Cells # 0.0 Sodium Level 136 Potassium Level 5.1 Chloride Level 98 Carbon Dioxide Level 28 Anion Gap 10 Blood Urea Nitrogen 47 #H Creatinine 1.33 H Est Glomerular Filtrat Rate mL/min 57 L Glucose Level 133 # Calcium Level 8.8 Subjective 24 Hr Interval Summary Free Text/Dictation Patient reports better pain control today. Exam/Review of Systems Exam Vitals Vital Signs Date Temp Pulse Resp B/P (MAP) Pulse Ox O2 O2 Flow FiO2 Time Delivery Rate 03/06/19 17 09:00 03/06/19 97.3 64 106/64 93 Nasal 09:00 (78) Cannula 03/06/19 2.0 08:09 Intake and Output 03/05/19 03/05/19 03/06/19 1515:00 23:00 07:00 IntakeIntake Total 1600 ml 1132.5 ml OutputOutput Total 230 ml 290 ml BalanceBalance 1600 ml 902.5 ml -290 ml Exam Constitutional: alert, oriented Head: normocephalic Eyes: nl conjunctiva Respiratory: clear to auscultation, normal air movement Cardiovascular: regular rate and rhythm Gastrointestinal: soft, tender with drain in place Neurological: FREQUENCY CHECKER II-XII intact, nl mental status, nl speech Skin: nl turgor Results Results 24hrs Laboratory Tests Test 03/05/19 16:56 03/06/19 05:52 Tobramycin Level Trough 0.9 L White Blood Count 13.1 #H Red Blood Count 4.12 L Hemoglobin 9.8 L Hematocrit 32.6 L Mean Corpuscular Volume 79.1 L Mean Corpuscular Hemoglobin 23.8 L Mean Corpuscular Hemoglobin Concent 30.1 L Red Cell Distribution Width 21.3 H Platelet Count 638 #H Mean Platelet Volume 10.9 H Immature Granulocytes % 0.500 H Neutrophils % 91.8 H Lymphocytes % 3.3 L Monocytes % 4.2 Eosinophils % 0.1 Basophils % 0.1 Nucleated Red Blood Cells % 0.0 Immature Granulocytes # 0.060 H Neutrophils # 12.1 H Lymphocytes # 0.4 L Monocytes # 0.6 Eosinophils # 0.0 Basophils # 0.0 Nucleated Red Blood Cells # 0.0 Sodium Level 136 Potassium Level 5.1 Chloride Level 98 Carbon Dioxide Level 28 Anion Gap 10 Blood Urea Nitrogen 47 #H Creatinine 1.33 H Est Glomerular Filtrat Rate mL/min 57 L Glucose Level 133 # Calcium Level 8.8 Medications Medication Current Medications IV Flush (NS 3 ml) 3 ml PER PROTOCOL IV Last administered on 02/25/19 08:55; Admin Dose 3 ML; Start 02/21/19 at 01:30 Ondansetron HCl (Zofran Inj) 4 mg Q6H PRN IV NAUSEA/VOMITING Last administered on 03/01/19 20:32; Admin Dose 4 MG; Start 02/21/19 at 01:30 Docusate Sodium (Colace) 100 mg Q12H PRN PO .CONSTIPATION Last administered on 02/25/19 08:51; Admin Dose 100 MG; Start 02/21/19 at 01:30 Magnesium Hydroxide (Milk Of Mag) 30 ml DAILY PRN PO .CONSTIPATION; Start 02/21/19 at 01:30 Heparin Sodium (Porcine) (Heparin (5000 Units/1ml)) 5,000 unit Q12 SC Last administered on 03/06/19 08:43; Admin Dose 5,000 UNIT; Start 02/21/19 at 09:00 Albuterol/ Ipratropium (Duoneb) 3 ml Q4H RESP THERAPY PRN HHN SHORTNESS OF BREATH; Start 02/21/19 at 01:30 Hydralazine HCl (Apresoline) 10 mg Q6H PRN IV ELEVATED BLOOD PRESSURE; Start 02/21/19 at 01:30 Nitroglycerin (Nitroglycerin (Sl Tab) 0.4 Mg) 1 tab Q5M PRN SL ANGINA; Start 02/21/19 at 01:30 Ferrous Sulfate (Ferrous Sulfate (Ec)) 325 mg DAILY PO Last administered on 03/06/19 08:39; Admin Dose 325 MG; Start 02/21/19 at 09:00 Guaifenesin (Robitussin Liquid Cup) 200 mg Q4H PRN PO COUGH Last administered on 03/04/19 03:52; Admin Dose 200 MG; Start 02/22/19 at 14:30 Polyethylene Glycol (Miralax) 17 gm BID PO Last administered on 03/06/19 08:40; Admin Dose 17 GM; Start 02/24/19 at 21:00 Bisacodyl (Dulcolax) 10 mg DAILY PRN PO CONSTIPATION; Start 02/24/19 at 15:30 Famotidine (Pepcid) 20 mg BID PO Last administered on 03/06/19 08:39; Admin Dose 20 MG; Start 02/26/19 at 21:00 Diphenhydramine HCl (Benadryl) 25 mg Q6H PRN IV allergy Last administered on 03/05/19 00:22; Admin Dose 25 MG; Start 03/03/19 at 10:30 Tobramycin (Tobramycin Iv Per Pharmacy) TOBRAMYCIN PER PHARMACY NOTE XX ; Start 03/03/19 at 16:00 Loratadine (Claritin) 10 mg DAILY PO Last administered on 03/06/19 08:39; Admin Dose 10 MG; Start 03/03/19 at 17:00 Tobramycin 500 mg/ Dextrose 112.5 ml @ 103.75 mls/ hr Q24H IVPB Last administered on 03/05/19 17:59; Admin Dose 103.75 MLS/HR; Start 03/03/19 at 18:00 Linezolid (Zyvox) 600 mg BID PO Last administered on 03/06/19 08:39; Admin Dose 600 MG; Start 03/04/19 at 10:00 Hydromorphone HCl (Dilaudid [employer] SIGN WORKER) 1.5 MG/HR CONTINUOUS RATE ... Q4PCA IV Last administered on 03/06/19 09:02; Admin Dose 6 MG; Start 03/04/19 at 19:00 Hydromorphone HCl (Dilaudid) 1 mg Q2 PRN IV SEVERE PAIN LEVEL 7-10 Last administered on 03/04/19 21:20; Admin Dose 1 MG; Start 03/04/19 at 18:00 Ketorolac Tromethamine (Toradol) 30 mg Q6H IV Last administered on 03/06/19at 05:58; Admin Dose 30 MG; Start 03/04/19 at 18:00; Stop 03/07/19 at 17:59 Methylprednisolone Sodium Succinate (Solu-Medrol) 125 mg Q6 IV Last administered on 03/06/19at 05:58; Admin Dose 125 MG; Start 03/04/19 at 18:00 JANELLE WAGGONER NP Mar 06, 2019 10:21
--- NOTE | 2019-03-06 14:04 | CONS ---
Assessment/Plan Assessment/Plan Hospital Course (Demo Recall) ID PROGRESS NOTE CURRENT ABX: DAY # => Zyvox and tobramycin, status post meropenem 03/06/19 0552 03/06/19 0552 24H INTERVAL SUMMARY * VSS, NAD, no fevers * MERREM DC'd due to urticaria -- WBC up today and is S.Creatinine after aminoglycoside started * s/p CT-guided splenic fluid drainage with 120 cc of thick dark red material being aspirated. He is alert feels better with less pain he has a left-sided abdominal drainage catheter with large amount cloudy brownish colored drainage. * Indwelling: Right chest Port-A-Cath, left-sided abdominal catheter DIAGNOSTIC IMAGING * 03/04/19 CXR: revealed pulmonary vascular congestion with small bilateral pleural effusions. Retrocardiac opacity may reflect superimposed up with atelectasis or airspace disease * CT abdomen 03/01/19: * 1. Splenomegaly slightly increased over the previous with an interval increase in size to the largest large lobulated cystic lesion involving most of the lateral and inferior spleen measuring 12.8 x 11.5 x 6.8 cm and 20 HU in density. 2 other smaller cystic lesions are evident. These lesions could represent abscesses, infected cysts, or hematomas. There is a superficial linear cleft-like lucency seen at the superior tip of the spleen, unchanged. * 2. Persistent hepatomegaly with no focal lesion. * 3. Vague hypodensities extending to the cortex are seen within the kidneys raising the possibility of bilateral pyelonephritis with no renal abscess or urinary outflow obstruction evident. * 4. Interval development of a small amount of free intraperitoneal fluid seen within the pelvic inferior peritoneal reflection which measures 8 HU. No free air is evident. There is a tiny fat containing umbilical hernia. * 5. There is no evidence of bowel obstruction or inflammation. * 6. Increasing subsegmental atelectasis involving the left lower lobe with discoid atelectasis involving the right lower lobe. There has been interval development of a small to moderate left pleural fluid accumulation which measures 22 HU and is therefore is not simple fluid. * 6. Cardiomegaly with a trace of pericardial effusion. Catheter artifact is noted within the superior vena cava. * 7. 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 MICRO * 03/04/19 ABD Wound Cx (+)GNR BODY FLUID CULTURE Preliminary Organism 1 GRAM NEGATIVE MOUNIKA QUANTITY 3+ * 03/04/19 BCx (-) * 03/03/19 Urine Cx (-) * 02/22/19 BCx (-) * 02/21/19 BCx (-) * 02/20/19 BCX (+) BLOOD CULTURE Final Organism 1 ESCHERICHIA COLI (ESBL) . MULTI DRUG RESISTANT ORGANISM ECOLI ESBL ECOLI ESBL M.I.C. RX M.I.C. RX --------- --- --------- --- AMPICILLIN >=32 R CEFAZOLIN R CEFEPIME 8 I CEFOTAXIME R CIPROFLOXACIN >=4 R GENTAMICIN <=1 S LEVOFLOXACIN >=8 R MEROPENEM 0.047 S TOBRAMYCIN <=1 S TRIMETHOPRIM/SULFAMETHOXAZOLE >=320 R PIPERACILLIN/TAZOBACTAM <=4 S PHYSICAL EXAMINATION: GENERAL: VSS, NAD HEENT: AT, NC, NECK: Supple, CHEST: Rise symmetrical HEART: Pulse RRR ABDOMEN: Benign EXTREMITIES: Warm, dry SKIN: No rash, no diaphoresis ID ASSESSMENT 53 yo M admit with: 1. Sepsis with recurrent bacteremia ===> KALEY negative 2. Splenomegaly with increase in size cystic lesions ?abscess===> s/p CT guided drainage 120 cc 3. B pleural effusion, possible pneumonia 5. Chronic anemia 6. History of E. coli ESBL and Citrobacter bacteremia on January 31, 2019 7. Status post open hemorrhoidectomy 01/27/19 8. Hives possibly allergic reaction to Merrem Plan: Clinically stable, continue antibiotics, follow fluid cultures ABX ALLERGIES: MERREM INVASIVES: PIV CURRENT ABX: DAY # Zyvox and tobramycin, status post meropenem ID RECOMMENDATIONS/PLAN: 1. Unable to use carbapenem ABX of choice for ESBL due to possible allergy -> Continue current ABX 2. Add Flagyl for anaerobic coverage empiric 3. If renal fx deteriorates -- consider trial of Tigecycline, and/or ask MICRO to run sensitivities. * Per UPTO DATE: Tigecycline could be considered as a second agent, especially for infections involving the gastrointestinal tract and lungs, given its penetration into these tissues. [ https://[email or web address]/[email or web address]-[email or web address]-etzfeayua-[email or web address]-zmsoxyjt-[email or web address]?sear ch=tygacil%20cover%20esbl&source=search_result&selectedTitle=4~150&usage_type=default&display_rank=4 ] -- Overview of carbapenemase-producing gram-negative bacilli . * . Consultation Date/Type/Reason Admit Date/Time Feb 20, 2019 at 23:21 Initial Consult Date 03/01/19 Requesting Provider: DANIELA BRUNSON Date/Time of Note DATE: 03/06/19 TIME: 14:04 Exam/Review of Systems Exam Vitals Vital Signs Date Temp Pulse Resp B/P (MAP) Pulse Ox O2 O2 Flow FiO2 Time Delivery Rate 03/06/19 17 13:00 03/06/19 97.4 68 113/65 93 Nasal 13:00 (81) Cannula 03/06/19 2.0 08:10 Intake and Output 03/05/19 03/05/19 03/06/19 1515:00 23:00 07:00 IntakeIntake Total 1600 ml 1132.5 ml OutputOutput Total 230 ml 290 ml BalanceBalance 1600 ml 902.5 ml -290 ml Results Result Diagram: 03/06/19 0552 03/06/19 0552 Results 24hrs Laboratory Tests Test 03/05/19 16:56 03/06/19 05:52 Tobramycin Level Trough 0.9 L White Blood Count 13.1 #H Red Blood Count 4.12 L Hemoglobin 9.8 L Hematocrit 32.6 L Mean Corpuscular Volume 79.1 L Mean Corpuscular Hemoglobin 23.8 L Mean Corpuscular Hemoglobin Concent 30.1 L Red Cell Distribution Width 21.3 H Platelet Count 638 #H Mean Platelet Volume 10.9 H Immature Granulocytes % 0.500 H Neutrophils % 91.8 H Lymphocytes % 3.3 L Monocytes % 4.2 Eosinophils % 0.1 Basophils % 0.1 Nucleated Red Blood Cells % 0.0 Immature Granulocytes # 0.060 H Neutrophils # 12.1 H Lymphocytes # 0.4 L Monocytes # 0.6 Eosinophils # 0.0 Basophils # 0.0 Nucleated Red Blood Cells # 0.0 Sodium Level 136 Potassium Level 5.1 Chloride Level 98 Carbon Dioxide Level 28 Anion Gap 10 Blood Urea Nitrogen 47 #H Creatinine 1.33 H Est Glomerular Filtrat Rate mL/min 57 L Glucose Level 133 # Calcium Level 8.8 Medications Medication Current Medications IV Flush (NS 3 ml) 3 ml PER PROTOCOL IV Last administered on 02/25/19 08:55; Admin Dose 3 ML; Start 02/21/19 at 01:30 Ondansetron HCl (Zofran Inj) 4 mg Q6H PRN IV NAUSEA/VOMITING Last administered on 03/01/19 20:32; Admin Dose 4 MG; Start 02/21/19 at 01:30 Docusate Sodium (Colace) 100 mg Q12H PRN PO .CONSTIPATION Last administered on 02/25/19 08:51; Admin Dose 100 MG; Start 02/21/19 at 01:30 Magnesium Hydroxide (Milk Of Mag) 30 ml DAILY PRN PO .CONSTIPATION; Start 02/21/19 at 01:30 Heparin Sodium (Porcine) (Heparin (5000 Units/1ml)) 5,000 unit Q12 SC Last administered on 03/06/19 08:43; Admin Dose 5,000 UNIT; Start 02/21/19 at 09:00 Albuterol/ Ipratropium (Duoneb) 3 ml Q4H RESP THERAPY PRN HHN SHORTNESS OF BREATH; Start 02/21/19 at 01:30 Hydralazine HCl (Apresoline) 10 mg Q6H PRN IV ELEVATED BLOOD PRESSURE; Start 02/21/19 at 01:30 Nitroglycerin (Nitroglycerin (Sl Tab) 0.4 Mg) 1 tab Q5M PRN SL ANGINA; Start 02/21/19 at 01:30 Ferrous Sulfate (Ferrous Sulfate (Ec)) 325 mg DAILY PO Last administered on 03/06/19 08:39; Admin Dose 325 MG; Start 02/21/19 at 09:00 Guaifenesin (Robitussin Liquid Cup) 200 mg Q4H PRN PO COUGH Last administered on 03/04/19 03:52; Admin Dose 200 MG; Start 02/22/19 at 14:30 Polyethylene Glycol (Miralax) 17 gm BID PO Last administered on 03/06/19 08:40; Admin Dose 17 GM; Start 02/24/19 at 21:00 Bisacodyl (Dulcolax) 10 mg DAILY PRN PO CONSTIPATION; Start 02/24/19 at 15:30 Famotidine (Pepcid) 20 mg BID PO Last administered on 03/06/19 08:39; Admin Dose 20 MG; Start 02/26/19 at 21:00 Diphenhydramine HCl (Benadryl) 25 mg Q6H PRN IV allergy Last administered on 03/05/19 00:22; Admin Dose 25 MG; Start 03/03/19 at 10:30 Tobramycin (Tobramycin Iv Per Pharmacy) TOBRAMYCIN PER PHARMACY NOTE XX ; Start 03/03/19 at 16:00 Loratadine (Claritin) 10 mg DAILY PO Last administered on 03/06/19 08:39; Ad min Dose 10 MG; Start 03/03/19 at 17:00 Tobramycin 500 mg/ Dextrose 112.5 ml @ 103.75 mls/ hr Q24H IVPB Last administered on 03/05/19 17:59; Admin Dose 103.75 MLS/HR; Start 03/03/19 at 18:00 Linezolid (Zyvox) 600 mg BID PO Last administered on 03/06/19 08:39; Admin Dose 600 MG; Start 03/04/19 at 10:00 Hydromorphone HCl (Dilaudid GRAIN CLEANER AND TRANSFER OPERATOR) 1.5 MG/HR CONTINUOUS RATE ... Q4PCA IV Last administered on 03/06/19 13:13; Admin Dose 6 MG; Start 03/04/19 at 19:00 Hydromorphone HCl (Dilaudid) 1 mg Q2 PRN IV SEVERE PAIN LEVEL 7-10 Last administered on 03/04/19 21:20; Admin Dose 1 MG; Start 03/04/19 at 18:00 Ketorolac Tromethamine (Toradol) 30 mg Q6H IV Last administered on 03/06/19 12:09; Admin Dose 30 MG; Start 03/04/19 at 18:00; Stop 03/07/19 at 17:59 Methylprednisolone Sodium Succinate (Solu-Medrol) 125 mg Q6 IV Last administered on 6/22/19at 12:09; Admin Dose 125 MG; Start 03/04/19 at 18:00 TED HEWITT NP Mar 06, 2019 14:04
[2019-03-06] MEDS: TOBRAMYCIN 500 MG in DEXTROSE 5% 100 ML IVPB SCH (18:12)
[2019-03-06] MEDS: DIPHENHYDRAMINE 50 MG INJ IV PRN (18:24)
[2019-03-06] MEDS: metroNIDAZOLE 500 MG/NS (PMX) 100 ML IVPB SCH (21:28)
--- NOTE | 2019-03-06 23:31 | PN ---
Date/Time of Note Date/Time of Note DATE: 03/06/19 TIME: 23:15 Assessment/Plan Lines/Catheters IV Catheter Type (from Nrs): portacath Bah in Place (from Nrs): No Assessment/Plan Chief Complaint/Hosp Course 1. Splenic abnormality on CT with possible abscess versus hematoma versus cyst: reviewed ct with radiologist: probable splenic infarct; since now w leukocytosis and fevers reviewed CT again w Radiologist who believes it is abscess > s/p IR drain, cxs gram negative -iv abx -pain control -supportive 2. Bacteremia with ESBL and Cytrobacter, concern for endocarditis> status post KALEY 3. Sepsis secondary to above (blood, spleen, bowel, uti, cardiac valves, recent surgery), improved -IV antibiotics -IV fluids -drain care -continue supportive measures -continue aggressive pain control -possible need for splenectomy if does not improve > immunizations 4. Anemia stable 5. BMI 33 -diet/exercise optimization 6. Hives:? Etiology:? Allergic reaction -Per medical/ID team 7. Abdominal pain secondary to above -Pain management per pain specialist Thank you Subjective 24 Hr Interval Summary s/p IR drain. Cx gram negative rods. 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 More comfortable. WBC normalized. No fevers, chills, sob, congested cough, cp, palpitations, metz, dizziness, nausea, vomiting, diarrhea, dysuria. Exam/Review of Systems Vital Signs Vitals Vital Signs Date Temp Pulse Resp B/P (MAP) Pulse Ox O2 O2 Flow FiO2 Time Delivery Rate 03/06/19 17 21:39 03/06/19 98.7 61 120/60 96 21:00 (80) 03/06/19 Nasal 17:00 Cannula 03/06/19 2.0 08:10 Intake and Output 03/05/19 03/05/19 03/06/19 1515:00 23:00 07:00 IntakeIntake Total 1600 ml 1132.5 ml OutputOutput Total 230 ml 290 ml BalanceBalance 1600 ml 902.5 ml -290 ml Exam Free Text/Dictation Constitutional: alert, oriented, distress (Minimal mainly due to pain), obese Psych: anxiety; No confusion Head: normocephalic, atraumatic Eyes: nl conjunctiva, EOMI, PERRL; No icteric ENMT: nl external ears & nose, nl lips & teeth Neck: supple, non-tender; No jvd Respiratory: normal air movement; No labored breathing, No wheezing Cardiovascular: regular rate and rhythm; No edema Gastrointestinal: soft, distended, left abdomen tenderness, drain No rebound or guarding Musculoskeletal: No nl gait and stance, No joint tenderness Extremities: normal pulses; No calf tenderness, No edema Neurological: nl mental status, nl speech Skin: nl turgor; hives No diaphoresis Lymph: nl lymph nodes Results Result Diagram: 03/06/19 0552 03/06/19 0552 ISAI RANDALL MD Mar 06, 2019 23:26
[2019-03-07] MEDS: METHYLPREDNISOLONE 125 MG INJ IV SCH ×4 (00:51→17:35)
[2019-03-07 01:00] VITALS: BP 100/63; PULSE 55; RESP 18
[2019-03-07] MEDS: HYDROmorphONE 0.2 MG/ML PCA IV SCH ×5 (02:18→20:18)
[2019-03-07 05:00] VITALS: BP 106/65; PULSE 53; RESP 17
[2019-03-07] MEDS: metroNIDAZOLE 500 MG/NS (PMX) 100 ML IVPB SCH ×3 (05:18→21:05)
[2019-03-07] MEDS: KETOROLAC 30 MG INJ IV SCH ×3 (05:19→12:00)
[2019-03-07 07:32] VITALS: BP 132/70; PULSE 56; RESP 20
[2019-03-07] MEDS: FERROUS SULFATE (EC) 325 MG TAB PO SCH (08:46)
[2019-03-07] MEDS: LORATADINE 10 MG TAB PO SCH (08:46)
[2019-03-07] MEDS: POLYETHYLENE GLYCOL 17 GM PACKET PO SCH ×2 (08:47→20:19)
[2019-03-07] MEDS: ZYVOX 600 MG TAB PO SCH ×2 (08:47→20:19)
[2019-03-07] MEDS: FAMOTIDINE 20 MG TAB PO SCH ×2 (08:47→20:19)
[2019-03-07] MEDS: HEPARIN 5,000 UNIT/1 ML VIAL SC SCH ×2 (08:49→20:22)
--- NOTE | 2019-03-07 13:19 | CONS ---
Assessment/Plan Assessment/Plan Hospital Course (Demo Recall) ID PROGRESS NOTE CURRENT ABX: DAY # => Zyvox, Tobramycin, Flagyl status post meropenem 03/07/19 0553 03/07/19 0553 24H INTERVAL SUMMARY * a/a/o -- clinically sable overnight -- no new issues, VSS, NAD, still has some ABD pain, feels subjective fevers using cold compress on forehead * MERREM DC'd due to urticaria -- WBC normalized and renal fx stable on aminoglycoside * s/p CT-guided splenic fluid drainage with 120 cc of thick dark red material being aspirated. * Indwelling: Right chest Port-A-Cath, left-sided abdominal catheter MICRO * 03/04/19 ABD Wound Cx (+)GNR BODY FLUID CULTURE Preliminary Organism 1 PANTOEA AGGLOMERANS QUANTITY 3+ Organism 2 GRAM NEGATIVE MOUNIKA QUANTITY 1+ P AGGLOMER M.I.C. RX --------- --- CEFOTAXIME R CIPROFLOXACIN >=4 R GENTAMICIN <=1 S LEVOFLOXACIN >=8 R TOBRAMYCIN <=1 S TRIMETHOPRIM/SULFAMETHOXAZOLE >=320 R * 03/04/19 BCx (-) * 03/03/19 Urine Cx (-) * 02/22/19 BCx (-) * 02/21/19 BCx (-) * 02/20/19 BCX (+) BLOOD CULTURE Final Organism 1 ESCHERICHIA COLI (ESBL) . MULTI DRUG RESISTANT ORGANISM ECOLI ESBL ECOLI ESBL M.I.C. RX M.I.C. RX --------- --- --------- --- AMPICILLIN >=32 R CEFAZOLIN R CEFEPIME 8 I CEFOTAXIME R CIPROFLOXACIN >=4 R GENTAMICIN <=1 S LEVOFLOXACIN >=8 R MEROPENEM 0.047 S TOBRAMYCIN <=1 S TRIMETHOPRIM/SULFAMETHOXAZOLE >=320 R PIPERACILLIN/TAZOBACTAM <=4 S DIAGNOSTIC IMAGING * 03/04/19 CXR: revealed pulmonary vascular congestion with small bilateral pleural effusions. Retrocardiac opacity may reflect superimposed up with atelectasis or airspace disease * CT abdomen 03/01/19: * 1. Splenomegaly slightly increased over the previous with an interval increase in size to the largest large lobulated cystic lesion involving most of the lateral and inferior spleen measuring 12.8 x 11.5 x 6.8 cm and 20 HU in density. 2 other smaller cystic lesions are evident. These lesions could represent abscesses, infected cysts, or hematomas. There is a superficial linear cleft-like lucency seen at the superior tip of the spleen, unchanged. * 2. Persistent hepatomegaly with no focal lesion. * 3. Vague hypodensities extending to the cortex are seen within the kidneys raising the possibility of bilateral pyelonephritis with no renal abscess or urinary outflow obstruction evident. * 4. Interval development of a small amount of free intraperitoneal fluid seen within the pelvic inferior peritoneal reflection which measures 8 HU. No free air is evident. There is a tiny fat containing umbilical hernia. * 5. There is no evidence of bowel obstruction or inflammation. * 6. Increasing subsegmental atelectasis involving the left lower lobe with discoid atelectasis involving the right lower lobe. There has been interval development of a small to moderate left pleural fluid accumulation which measures 22 HU and is therefore is not simple fluid. * 6. Cardiomegaly with a trace of pericardial effusion. Catheter artifact is noted within the superior vena cava. * 7. 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 PHYSICAL EXAMINATION: GENERAL: VSS, NAD HEENT: AT, NC, NECK: Supple, CHEST: Rise symmetrical HEART: Pulse RRR ABDOMEN: Benign EXTREMITIES: Warm, dry SKIN: No rash, no diaphoresis ID ASSESSMENT 53 yo M admit with: 1. Sepsis with recurrent bacteremia ===> KALEY negative 2. Splenomegaly with increase in size cystic lesions ?abscess===> s/p CT guided drainage 120 cc * 03/04/19 ABD Wound Cx (+)GNR BODY FLUID CULTURE Preliminary Organism 1 PANTOEA AGGLOMERANS QUANTITY 3+ Organism 2 GRAM NEGATIVE MOUNIKA QUANTITY 1+ 3. B pleural effusion, possible pneumonia 5. Chronic anemia 6. History of E. coli ESBL and Citrobacter bacteremia on January 31, 2019 7. Status post open hemorrhoidectomy 01/27/19 8. Hives possibly allergic reaction to Merrem Plan: Clinically stable, continue antibiotics, follow fluid cultures ABX ALLERGIES: MERREM INVASIVES: PIV CURRENT ABX: DAY # Zyvox and tobramycin, Flagyl status post meropenem ID RECOMMENDATIONS/PLAN: 1. Unable to use carbapenem ABX of choice for ESBL due to possible allergy -> Continue current ABX -> FINAL MICRO PENDING 2. Added Flagyl for anaerobic coverage empiric 3. If renal fx deteriorates -- consider trial of Tigecycline, and/or ask MICRO to run sensitivities. * Per UPTO DATE: Tigecycline could be considered as a second agent, especially for infections involving the gastrointestinal tract and lungs, given its penetration into these tissues. [ https:/ /www.[employer]/contents/uwrdbooe-vh-dnjrofdfrqneo-weuouorwc-alsl-iizbcfzg-bacilli?search=tygacil% 20cover%20esbl&source=search_result&selectedTitle=4~150&usage_type=default&display_rank=4 ] -- Overview of carbapenemase-producing gram-negative bacilli . * . Consultation Date/Type/Reason Admit Date/Time Feb 20, 2019 at 23:21 Initial Consult Date 03/01/19 Requesting Provider: DANIELA BRUNSON Date/Time of Note DATE: 03/07/19 TIME: 13:15 Exam/Review of Systems Exam Vitals Vital Signs Date Temp Pulse Resp B/P (MAP) Pulse Ox O2 O2 Flow FiO2 Time Delivery Rate 03/07/19 18 12:15 03/07/19 Nasal 2.0 09:00 Cannula 03/07/19 98.5 56 132/70 96 07:32 (90) Intake and Output 03/06/19 03/06/19 03/07/19 1515:00 23:00 07:00 IntakeIntake Total 840 ml 692.5 ml 340 ml OutputOutput Total 600 ml 400 ml 310 ml BalanceBalance 240 ml 292.5 ml 30 ml Results Result Diagram: 03/07/19 0553 03/07/19 0553 Results 24hrs Laboratory Tests Test 03/07/19 05:53 White Blood Count 8.8 # Red Blood Count 3.95 L Hemoglobin 9.5 L Hematocrit 31.5 L Mean Corpuscular Volume 79.7 L Mean Corpuscular Hemoglobin 24.1 L Mean Corpuscular Hemoglobin Concent 30.2 L Red Cell Distribution Width 21.0 H Platelet Count 614 H Mean Platelet Volume 10.6 H Immature Granulocytes % 0.300 Neutrophils % 93.1 H Lymphocytes % 3.7 L Monocytes % 2.9 Eosinophils % 0.0 Basophils % 0.0 Nucleated Red Blood Cells % 0.0 Immature Granulocytes # 0.030 Neutrophils # 8.2 H Lymphocytes # 0.3 L Monocytes # 0.3 Eosinophils # 0.0 Basophils # 0.0 Nucleated Red Blood Cells # 0.0 Sodium Level 135 Potassium Level 5.1 Chloride Level 99 Carbon Dioxide Level 29 Anion Gap 7 Blood Urea Nitrogen 51 H Creatinine 1.03 Est Glomerular Filtrat Rate mL/min > 60 Glucose Level 148 Calcium Level 8.7 Medications Medication Current Medications IV Flush (NS 3 ml) 3 ml PER PROTOCOL IV Last administered on 02/25/19 08:55; Admin Dose 3 ML; Start 02/21/19 at 01:30 Ondansetron HCl (Zofran Inj) 4 mg Q6H PRN IV NAUSEA/VOMITING Last administered on 03/01/19 20:32; Admin Dose 4 MG; Start 02/21/19 at 01:30 Docusate Sodium (Colace) 100 mg Q12H PRN PO .CONSTIPATION Last administered on 02/25/19 08:51; Admin Dose 100 MG; Start 02/21/19 at 01:30 Magnesium Hydroxide (Milk Of Mag) 30 ml DAILY PRN PO .CONSTIPATION; Start 02/21/19 at 01:30 Heparin Sodium (Porcine) (Heparin (5000 Units/1ml)) 5,000 unit Q12 SC Last administered on 03/07/19 08:49; Admin Dose 5,000 UNIT; Start 02/21/19 at 09:00 Albuterol/ Ipratropium (Duoneb) 3 ml Q4H RESP THERAPY PRN HHN SHORTNESS OF BREATH; Start 02/21/19 at 01:30 Hydralazine HCl (Apresoline) 10 mg Q6H PRN IV ELEVATED BLOOD PRESSURE; Start 02/21/19 at 01:30 Nitroglycerin (Nitroglycerin (Sl Tab) 0.4 Mg) 1 tab Q5M PRN SL ANGINA; Start 02/21/19 at 01:30 Ferrous Sulfate (Ferrous Sulfate (Ec)) 325 mg DAILY PO Last administered on 03/07/19 08:46; Admin Dose 325 MG; Start 02/21/19 at 09:00 Guaifenesin (Robitussin Liquid Cup) 200 mg Q4H PRN PO COUGH Last administered on 03/04/19 03:52; Admin Dose 200 MG; Start 02/22/19 at 14:30 Polyethylene Glycol (Miralax) 17 gm BID PO Last administered on 03/07/19 08:47; Admin Dose 17 GM; Start 02/24/19 at 21:00 Bisacodyl (Dulcolax) 10 mg DAILY PRN PO CONSTIPATION; Start 02/24/19 at 15:30 Famotidine (Pepcid) 20 mg BID PO Last administered on 03/07/19 08:47; Admin Dose 20 MG; Start 02/26/19 at 21:00 Diphenhydramine HCl (Benadryl) 25 mg Q6H PRN IV allergy Last administered on 03/06/19 18:24; Admin Dose 25 MG; Start 03/03/19 at 10:30 Tobramycin (Tobramycin Iv Per Pharmacy) TOBRAMYCIN PER PHARMACY NOTE XX ; Start 03/03/19 at 16:00 Loratadine (Claritin) 10 mg DAILY PO Last administered on 03/07/19 08:46; Admin Dose 10 MG; Start 03/03/19 at 17:00 Tobramycin 500 mg/ Dextrose 112.5 ml @ 103.75 mls/ hr Q24H IVPB Last administered on 03/06/19 18:12; Admin Dose 103.75 MLS/HR; Start 03/03/19 at 18:00 Linezolid (Zyvox) 600 mg BID PO Last administered on 03/07/19 08:47; Admin Dose 600 MG; Start 03/04/19 at 10:00 Hydromorphone HCl (Dilaudid WELDER ASSISTANT) 1.5 MG/HR CONTINUOUS RATE ... Q4PCA IV Last administered on 03/07/19 12:12; Admin Dose 6 MG; Start 03/04/19 at 19:00 Hydromorphone HCl (Dilaudid) 1 mg Q2 PRN IV SEVERE PAIN LEVEL 7-10 Last administered on 03/04/19 21:20; Admin Dose 1 MG; Start 03/04/19 at 18:00 Ketorolac Tromethamine (Toradol) 30 mg Q6H IV Last administered on 03/06/19at 17:42; Admin Dose 30 MG; Start 03/04/19 at 18:00; Stop 03/07/19 at 17:59 Methylprednisolone Sodium Succinate (Solu-Medrol) 125 mg Q6 IV Last administered on 03/07/19at 12:17; Admin Dose 125 MG; Start 03/04/19 at 18:00 Metronidazole 100 ml @ 100 mls/hr Q8 IVPB Last administered on 03/07/19at 05:18; Admin Dose 100 MLS/HR; Start 03/06/19 at 22:00 TED HEWITT NP Mar 07, 2019 13:19
--- NOTE | 2019-03-07 14:06 | PN ---
Date/Time of Note Date/Time of Note DATE: 03/07/19 TIME: 14:02 Assessment/Plan VTE [place] [facility] [place]: 4 [place] [facility] [place]CD contraindicated: other Pharmacological prophylaxis: heparin Lines/Catheters IV Catheter Type (from [facility] Portacath Urinary Cath still in place: No Assessment/Plan Hospital Course 1. Status post septic shock. -Status post IV pressors. - Culture showing E. coli ESBL bacteremia. - ABX regimen per ID 2. Multiple low-attenuation splenic lesions. - CT abd 02/20/19: Multiple low attenuation splenic lesions which are new compared to prior examination and may be infectious/inflammatory in etiology such as abscesses. A less likely etiology include splenic infarcts. - Splenic abscess versus infarcts, suspect secondary to recent bacteremia. - Transthoracic echocardiogram negative for any embolic source. - Repeat CT abd imaging 03/01/19: Splenomegaly slightly increased over the previous with an interval increase in size to the largest large lobulated cystic lesion involving most of the lateral and inferior spleen measuring 12.8 x 11.5 x 6.8 cm and 20 HU in density. 2 other smaller cystic lesions are evident. These lesions could represent abscesses, infected cysts, or hematomas. There is a superficial linear cleft-like lucency seen at the superior tip of the spleen, unchanged. - s/p IR drainage 03.05.19: Successful percutaneous drainage of a splenic fluid collection. Approximately 120 cc of thick dark red material was aspirated - culture: PANTOEA AGGLOMERANS 3. Possible underlying infective endocarditis. - s/p KALEY 03.04.19: No definite findings of intracardiac source of infection or endocarditis - continue abx per ID 4. Chronic rectal bleeding. - transfuse blood products prn - monitor 5. Iron deficiency. - continue on iron 6. Suspect allergic reaction - improved - etiology unknown. ABX? - f/u ID for use of steroid - antihistamine prn DISPO/PLAN: continue abx/analgesics. . f/u labs. drain remains in place with less drainage. taper down analgesics. f/u labs Discussed plan of care with Dr. Aguilar Result Diagram: 03/07/19 0553 03/07/19 0553 Results 24hrs Laboratory Tests Test 03/07/19 05:53 White Blood Count 8.8 # Red Blood Count 3.95 L Hemoglobin 9.5 L Hematocrit 31.5 L Mean Corpuscular Volume 79.7 L Mean Corpuscular Hemoglobin 24.1 L Mean Corpuscular Hemoglobin Concent 30.2 L Red Cell Distribution Width 21.0 H Platelet Count 614 H Mean Platelet Volume 10.6 H Immature Granulocytes % 0.300 Neutrophils % 93.1 H Lymphocytes % 3.7 L Monocytes % 2.9 Eosinophils % 0.0 Basophils % 0.0 Nucleated Red Blood Cells % 0.0 Immature Granulocytes # 0.030 Neutrophils # 8.2 H Lymphocytes # 0.3 L Monocytes # 0.3 Eosinophils # 0.0 Basophils # 0.0 Nucleated Red Blood Cells # 0.0 Sodium Level 135 Potassium Level 5.1 Chloride Level 99 Carbon Dioxide Level 29 Anion Gap 7 Blood Urea Nitrogen 51 H Creatinine 1.03 Est Glomerular Filtrat Rate mL/min > 60 Glucose Level 148 Calcium Level 8.7 Subjective 24 Hr Interval Summary Free Text/Dictation reports significantly less pain on left flank . less drainage noted Exam/Review of Systems Exam Vitals Vital Signs Date Temp Pulse Resp B/P (MAP) Pulse Ox O2 O2 Flow FiO2 Time Delivery Rate 03/07/19 18 12:15 03/07/19 Nasal 2.0 09:00 Cannula 03/07/19 98.5 56 132/70 96 07:32 (90) Intake and Output 03/06/19 03/06/19 03/07/19 1515:00 23:00 07:00 IntakeIntake Total 840 ml 692.5 ml 340 ml OutputOutput Total 600 ml 400 ml 310 ml BalanceBalance 240 ml 292.5 ml 30 ml Exam Exam Constitutional: alert, oriented Head: normocephalic Eyes: nl conjunctiva Respiratory: clear to auscultation, normal air movement Cardiovascular: regular rate and rhythm Gastrointestinal: soft, tender with drain in place 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, nl mental status, nl speech Skin: nl turgor Results Results 24hrs Laboratory Tests Test 03/07/19 05:53 White Blood Count 8.8 # Red Blood Count 3.95 L Hemoglobin 9.5 L Hematocrit 31.5 L Mean Corpuscular Volume 79.7 L Mean Corpuscular Hemoglobin 24.1 L Mean Corpuscular Hemoglobin Concent 30.2 L Red Cell Distribution Width 21.0 H Platelet Count 614 H Mean Platelet Volume 10.6 H Immature Granulocytes % 0.300 Neutrophils % 93.1 H Lymphocytes % 3.7 L Monocytes % 2.9 Eosinophils % 0.0 Basophils % 0.0 Nucleated Red Blood Cells % 0.0 Immature Granulocytes # 0.030 Neutrophils # 8.2 H Lymphocytes # 0.3 L Monocytes # 0.3 Eosinophils # 0.0 Basophils # 0.0 Nucleated Red Blood Cells # 0.0 Sodium Level 135 Potassium Level 5.1 Chloride Level 99 Carbon Dioxide Level 29 Anion Gap 7 Blood Urea Nitrogen 51 H Creatinine 1.03 Est Glomerular Filtrat Rate mL/min > 60 Glucose Level 148 Calcium Level 8.7 Medications Medication Current Medications IV Flush (NS 3 ml) 3 ml PER PROTOCOL IV Last administered on 02/25/19 08:55; Admin Dose 3 ML; Start 02/21/19 at 01:30 Ondansetron HCl (Zofran Inj) 4 mg Q6H PRN IV NAUSEA/VOMITING Last administered on 03/01/19 20:32; Admin Dose 4 MG; Start 02/21/19 at 01:30 Docusate Sodium (Colace) 100 mg Q12H PRN PO .CONSTIPATION Last administered on 02/25/19 08:51; Admin Dose 100 MG; Start 02/21/19 at 01:30 Magnesium Hydroxide (Milk Of Mag) 30 ml DAILY PRN PO .CONSTIPATION; Start 02/21/19 at 01:30 Heparin Sodium (Porcine) (Heparin (5000 Units/1ml)) 5,000 unit Q12 SC Last administered on 03/07/19 08:49; Admin Dose 5,000 UNIT; Start 02/21/19 at 09:00 Albuterol/ Ipratropium (Duoneb) 3 ml Q4H RESP THERAPY PRN HHN SHORTNESS OF BREATH; Start 02/21/19 at 01:30 Hydralazine HCl (Apresoline) 10 mg Q6H PRN IV ELEVATED BLOOD PRESSURE; Start 02/21/19 at 01:30 Nitroglycerin (Nitroglycerin (Sl Tab) 0.4 Mg) 1 tab Q5M PRN SL ANGINA; Start 02/21/19 at 01:30 Ferrous Sulfate (Ferrous Sulfate (Ec)) 325 mg DAILY PO Last administered on 03/07/19 08:46; Admin Dose 325 MG; Start 02/21/19 at 09:00 Guaifenesin (Robitussin Liquid Cup) 200 mg Q4H PRN PO COUGH Last administered on 03/04/19 03:52; Admin Dose 200 MG; Start 02/22/19 at 14:30 Polyethylene Glycol (Miralax) 17 gm BID PO Last administered on 03/07/19 08:47; Admin Dose 17 GM; Start 02/24/19 at 21:00 Bisacodyl (Dulcolax) 10 mg DAILY PRN PO CONSTIPATION; Start 02/24/19 at 15:30 Famotidine (Pepcid) 20 mg BID PO Last administered on 03/07/19 08:47; Admin Dose 20 MG; Start 02/26/19 at 21:00 Diphenhydramine HCl (Benadryl) 25 mg Q6H PRN IV allergy Last administered on 03/06/19 18:24; Admin Dose 25 MG; Start 03/03/19 at 10:30 Tobramycin (Tobramycin Iv Per Pharmacy) TOBRAMYCIN PER PHARMACY NOTE XX ; Start 03/03/19 at 16:00 Loratadine (Claritin) 10 mg DAILY PO Last administered on 03/07/19 08:46; Admin Dose 10 MG; Start 03/03/19 at 17:00 Tobramycin 500 mg/ Dextrose 112.5 ml @ 103.75 mls/ hr Q24H IVPB Last administered on 03/06/19 18:12; Admin Dose 103.75 MLS/HR; Start 03/03/19 at 18:00 Linezolid (Zyvox) 600 mg BID PO Last administered on 03/07/19 08:47; Admin Dose 600 MG; Start 03/04/19 at 10:00 Hydromorphone HCl (Dilaudid GIN FEEDER) 1.5 MG/HR CONTINUOUS RATE ... Q4PCA IV Last administered on 03/07/19 12:12; Admin Dose 6 MG; Start 03/04/19 at 19:00 Hydromorphone HCl (Dilaudid) 1 mg Q2 PRN IV SEVERE PAIN LEVEL 7-10 Last administered on 03/04/19 21:20; Admin Dose 1 MG; Start 03/04/19 at 18:00 Ketorolac Tromethamine (Toradol) 30 mg Q6H IV Last administered on 03/06/19 17:42; Admin Dose 30 MG; Start 03/04/19 at 18:00; Stop 03/07/19 at 17:59 Methylprednisolone Sodium Succinate (Solu-Medrol) 125 mg Q6 IV Last administered on 03/07/19at 12:17; Admin Dose 125 MG; Start 03/04/19 at 18:00 Metronidazole 100 ml @ 100 mls/hr Q8 IVPB Last administered on 03/07/19at 13:22; Admin Dose 100 MLS/HR; Start 03/06/19 at 22:00 JANELLE WAGGONER NP Mar 07, 2019 14:06
[2019-03-07] MEDS: TOBRAMYCIN 500 MG in DEXTROSE 5% 100 ML IVPB SCH (17:35)
[2019-03-07 21:00] VITALS: BP 147/72; PULSE 60; RESP 18
--- NOTE | 2019-03-07 22:43 | PN ---
Date/Time of Note Date/Time of Note DATE: 03/07/19 TIME: 22:42 Assessment/Plan Lines/Catheters IV Catheter Type (from Nrs): Portacath Bah in Place (from Nrs): No Assessment/Plan Chief Complaint/Hosp Course 1. Splenic abnormality on CT with possible abscess versus hematoma versus cyst: reviewed ct with radiologist: probable splenic infarct; since now w leukocytosis and fevers reviewed CT again w Radiologist who believes it is abscess > s/p IR drain, cxs gram negative -iv abx -pain control -supportive 2. Bacteremia with ESBL and Cytrobacter, concern for endocarditis> status post KALEY 3. Sepsis secondary to above (blood, spleen, bowel, uti, cardiac valves, recent surgery), improved -IV antibiotics -IV fluids -drain care -continue supportive measures -continue aggressive pain control -possible need for splenectomy if does not improve > immunizations 4. Anemia stable 5. BMI 33 -diet/exercise optimization 6. Hives:? Etiology:? Allergic reaction -Per medical/ID team 7. Abdominal pain secondary to above -Pain management per pain specialist Thank you Subjective 24 Hr Interval Summary s/p IR drain. Cx gram negative rods. 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 More comfortable. WBC normalized. No fevers, chills, sob, congested cough, cp, palpitations, metz, dizziness, nausea, vomiting, diarrhea, dysuria. Exam/Review of Systems Vital Signs Vitals Vital Signs Date Temp Pulse Resp B/P (MAP) Pulse Ox O2 O2 Flow FiO2 Time Delivery Rate 03/07/19 17 21:20 03/07/19 97.4 60 147/72 93 21:00 (97) 03/07/19 Nasal 2.0 21:00 Cannula Intake and Output 03/06/19 03/06/19 03/07/19 1515:00 23:00 07:00 IntakeIntake Total 840 ml 692.5 ml 340 ml OutputOutput Total 600 ml 400 ml 310 ml BalanceBalance 240 ml 292.5 ml 30 ml Exam Free Text/Dictation Constitutional: alert, oriented, distress (Minimal mainly due to pain), obese Psych: anxiety; No confusion Head: normocephalic, atraumatic Eyes: nl conjunctiva, EOMI, PERRL; No icteric ENMT: nl external ears & nose, nl lips & teeth Neck: supple, non-tender; No jvd Respiratory: normal air movement; No labored breathing, No wheezing Cardiovascular: regular rate and rhythm; No edema Gastrointestinal: soft, distended, left abdomen tenderness, drain No rebound or guarding Musculoskeletal: No nl gait and stance, No joint tenderness Extremities: normal pulses; No calf tenderness, No edema Neurological: nl mental status, nl speech Skin: nl turgor; hives No diaphoresis Lymph: nl lymph nodes Results Result Diagram: 03/07/19 0553 03/07/19 0553 ISAI RANDALL MD Mar 07, 2019 22:43
[2019-03-08] VITALS (7 sets, daily range): BP systolic 125–154; BP diastolic 59–78; PULSE 60–79; RESP 18–20
[2019-03-08] MEDS: METHYLPREDNISOLONE 125 MG INJ IV SCH ×4 (00:15→17:31)
[2019-03-08] MEDS: HYDROmorphONE 0.2 MG/ML PCA IV SCH ×4 (00:50→20:01)
[2019-03-08] MEDS: metroNIDAZOLE 500 MG/NS (PMX) 100 ML IVPB SCH ×3 (05:03→21:39)
[2019-03-08] MEDS: FERROUS SULFATE (EC) 325 MG TAB PO SCH (08:42)
[2019-03-08] MEDS: FAMOTIDINE 20 MG TAB PO SCH ×2 (08:42→21:39)
[2019-03-08] MEDS: HEPARIN 5,000 UNIT/1 ML VIAL SC SCH ×2 (08:42→21:42)
[2019-03-08] MEDS: POLYETHYLENE GLYCOL 17 GM PACKET PO SCH ×2 (08:42→21:40)
[2019-03-08] MEDS: LORATADINE 10 MG TAB PO SCH (08:42)
[2019-03-08] MEDS: ZYVOX 600 MG TAB PO SCH (08:42)
[2019-03-08] MEDS ORDERED: NA POLYST SULFON 15 GM/60 ML BTL PO ONE (10:00)
--- NOTE | 2019-03-08 13:34 | CONS ---
Assessment/Plan Assessment/Plan Hospital Course (Demo Recall) Patient is alert feels better looks comfortable no fevers overnight WBC 6.1 neutrophils 89.9 BUN 38 creatinine 0.89 Microbiology: Urine culture repeatednegative. Blood culture on admission grew E. coli ESBL, repeat blood cultures negative. Fluid culture grew Pantoea, both susceptible to tobramycin a and Citrobacter Antimicrobials: Zyvox and tobramycin, status post meropenem Allergy: Meropenem, causes rash Indwelling: Right chest Port-A-Cath, left-sided abdominal catheter Physical examination: This is well-nourished ill-appearing middle-aged man who is alert in no distress. Head atraumatic normocephalic neck is supple chest rise symmetrical breath sounds diminished to bases heart: S1-S2 abdomen obese soft bowel sounds present extremities with trace edema Assessment: 1. Sepsis with recurrent bacteremia ===> KALEY negative 2. Splenomegaly with abscess===> s/p CT guided drainage 120 cc 3. B pleural effusion, possible pneumonia 5. Chronic anemia 6. History of E. coli ESBL and Citrobacter bacteremia on January 31, 2019 7. Status post open hemorrhoidectomy 01/27/19 8. Hives possibly allergic reaction to Merrem Plan: Clinically improving, DC Zyvox, continue tobramycin Consultation Date/Type/Reason Admit Date/Time Feb 20, 2019 at 23:21 Initial Consult Date Type of Consult id Requesting Provider: DANIELA BRUNSON Date/Time of Note DATE: 03/08/19 TIME: 13:32 Exam/Review of Systems Exam Vitals Vital Signs Date Temp Pulse Resp B/P (MAP) Pulse Ox O2 O2 Flow FiO2 Time Delivery Rate 03/08/19 18 10:29 03/08/19 97.6 60 154/73 97 07:27 (100) 03/07/19 2.0 23:00 03/07/19 Nasal 21:00 Cannula Intake and Output 03/07/19 03/07/19 03/08/19 1515:00 23:00 07:00 IntakeIntake Total 1100 ml 860 ml 580 ml OutputOutput Total 750 ml 510 ml 610 ml BalanceBalance 350 ml 350 ml -30 ml Results Result Diagram: 03/08/19 0501 03/08/19 0501 Results 24hrs Laboratory Tests Test 03/08/19 05:01 White Blood Count 6.1 # Red Blood Count 4.16 L Hemoglobin 9.8 L Hematocrit 32.6 L Mean Corpuscular Volume 78.4 L Mean Corpuscular Hemoglobin 23.6 L Mean Corpuscular Hemoglobin Concent 30.1 L Red Cell Distribution Width 21.2 H Platelet Count 644 H Mean Platelet Volume 10.8 H Immature Granulocytes % 0.500 H Neutrophils % 89.9 H Lymphocytes % 5.6 L Monocytes % 4.0 Eosinophils % 0.0 Basophils % 0.0 Nucleated Red Blood Cells % 0.0 Immature Granulocytes # 0.030 Neutrophils # 5.4 Lymphocytes # 0.3 L Monocytes # 0.2 L Eosinophils # 0.0 Basophils # 0.0 Nucleated Red Blood Cells # 0.0 Sodium Level 139 Potassium Level 5.5 H Chloride Level 99 Carbon Dioxide Level 30 Anion Gap 10 Blood Urea Nitrogen 38 #H Creatinine 0.89 Est Glomerular Filtrat Rate mL/min > 60 Glucose Level 179 Calcium Level 9.0 Medications Medication Current Medications IV Flush (NS 3 ml) 3 ml PER PROTOCOL IV Last administered on 02/25/19 08:55; Admin Dose 3 ML; Start 02/21/19 at 01:30 Ondansetron HCl (Zofran Inj) 4 mg Q6H PRN IV NAUSEA/VOMITING Last administered on 03/01/19 20:32; Admin Dose 4 MG; Start 02/21/19 at 01:30 Docusate Sodium (Colace) 100 mg Q12H PRN PO .CONSTIPATION Last administered on 02/25/19 08:51; Admin Dose 100 MG; Start 02/21/19 at 01:30 Magnesium Hydroxide (Milk Of Mag) 30 ml DAILY PRN PO .CONSTIPATION; Start 02/21/19 at 01:30 Heparin Sodium (Porcine) (Heparin (5000 Units/1ml)) 5,000 unit Q12 SC Last administered on 03/08/19 08:42; Admin Dose 5,000 UNIT; Start 02/21/19 at 09:00 Albuterol/ Ipratropium (Duoneb) 3 ml Q4H RESP THERAPY PRN HHN SHORTNESS OF BREATH; Start 02/21/19 at 01:30 Hydralazine HCl (Apresoline) 10 mg Q6H PRN IV ELEVATED BLOOD PRESSURE; Start 02/21/19 at 01:30 Nitroglycerin (Nitroglycerin (Sl Tab) 0.4 Mg) 1 tab Q5M PRN SL ANGINA; Start 02/21/19 at 01:30 Ferrous Sulfate (Ferrous Sulfate (Ec)) 325 mg DAILY PO Last administered on 03/08/19 08:42; Admin Dose 325 MG; Start 02/21/19 at 09:00 Guaifenesin (Robitussin Liquid Cup) 200 mg Q4H PRN PO COUGH Last administered on 03/04/19 03:52; Admin Dose 200 MG; Start 02/22/19 at 14:30 Polyethylene Glycol (Miralax) 17 gm BID PO Last administered on 03/08/19 08:42; Admin Dose 17 GM; Start 02/24/19 at 21:00 Bisacodyl (Dulcolax) 10 mg DAILY PRN PO CONSTIPATION; Start 02/24/19 at 15:30 Famotidine (Pepcid) 20 mg BID PO Last administered on 03/08/19 08:42; Admin Dose 20 MG; Start 02/26/19 at 21:00 Diphenhydramine HCl (Benadryl) 25 mg Q6H PRN IV allergy Last administered on 03/06/19 18:24; Admin Dose 25 MG; Start 03/03/19 at 10:30 Tobramycin (Tobramycin Iv Per Pharmacy) TOBRAMYCIN PER PHARMACY NOTE XX ; Start 03/03/19 at 16:00 Loratadine (Claritin) 10 mg DAILY PO Last administered on 03/08/19 08:42; Adm in Dose 10 MG; Start 03/03/19 at 17:00 Tobramycin 500 mg/ Dextrose 112.5 ml @ 103.75 mls/ hr Q24H IVPB Last administered on 03/07/19 17:35; Admin Dose 103.75 MLS/HR; Start 03/03/19 at 18:00 Linezolid (Zyvox) 600 mg BID PO Last administered on 03/08/19 08:42; Admin Dose 600 MG; Start 03/04/19 at 10:00 Hydromorphone HCl (Dilaudid CNS) 0.5 MG/HR CONTINUOUS RATE ... Q4PCA IV Last administered on 03/08/19 09:19; Admin Dose 6 MG; Start 03/04/19 at 19:00 Hydromorphone HCl (Dilaudid) 1 mg Q2 PRN IV SEVERE PAIN LEVEL 7-10 Last administered on 03/04/19at 21:20; Admin Dose 1 MG; Start 03/04/19 at 18:00 Methylprednisolone Sodium Succinate (Solu-Medrol) 125 mg Q6 IV Last administered on 03/08/19at 12:05; Admin Dose 125 MG; Start 03/04/19 at 18:00 Metronidazole 100 ml @ 100 mls/hr Q8 IVPB Last administered on 03/08/19at 05:03; Admin Dose 100 MLS/HR; Start 03/06/19 at 22:00 JAYRO SANTIAGO NP Mar 08, 2019 13:34
--- NOTE | 2019-03-08 15:33 | PN ---
Date/Time of Note Date/Time of Note DATE: 03/08/19 TIME: 15:30 Assessment/Plan VTE Prophylaxis Risk score (from Ns)>0 risk: 3 SCD applied (from Ns): No SCD contraindicated: other Pharmacological prophylaxis: heparin Lines/Catheters IV Catheter Type (from [facility]): portacath Urinary Cath still in place: No Assessment/Plan Hospital Course SUBJECTIVE: Complains of frequent hiccups. Remains on Dilaudid BUSPERSON. OBJECTIVE: Physical Exam General: Obese build 53 year-old male lying in bed in no apparent distress. HEENT: Normocephalic, atraumatic. Eyes: Anicteric sclerae, conjunctivae clear. ENT: Nasal septum midline, oral mucosa moist. Neck supple, no JVD noticed. Respiratory: Bilaterally clear breath sounds. No use of accessory muscles of res piration. No adventitious breath sounds. Cardiovascular: S1, S2 heard. Regular rate and rhythm. Abdomen: Soft and nondistended. LUQ drain with brown colored fluid draining out. Bowel sounds positive in all 4 quadrants. Genitourinary: Deferred. Extremities: No cyanosis, no clubbing, no edema. Peripheral pulses palpable. Neurologic: Cranial nerves II through XII grossly intact. The patient is awake, alert, and oriented. Skin: Normal skin turgor. No skin rashes. Labs & Vitals per chart ASSESSMENT & PLAN 53-year-old male with past medical history of hemorrhoidal bleeding status post recent hemorrhoidectomy, iron deficiency anemia, and recent E. coli ESBL and Citrobacter bacteremia who presented to the emergency room complaining of chest pain or shortness of breath with signs of septic shock on pressor support. 1. Status post septic shock. Status post IV pressors. Culture showing E. coli ESBL bacteremia. Continue antimicrobials as per ID. 2. Splenic abscess. Status post CT-guided percutaneous drainage of splenic fluid collection on 03/05/2019. Fluid culture showing Pantoea agglomerans and Citrobacter koseri. Continue antimicrobials as per ID. 3. Chronic rectal bleeding. Monitor H&H closely. Transfuse blood products as needed. 4. Iron deficiency. Continue iron supplements. 5. Fluids, electrolytes, and nutrition. Regular diet. 6. DVT prophylaxis. SQ heparin. 7. Plan. Continue antimicrobials as per ID. Await clinical improvement before discharging the patient. The patient was seen in collaboration with Dr. Pepper. Result Diagram: 03/08/19 0501 03/08/19 0501 Results 24hrs Laboratory Tests Test 03/08/19 05:01 White Blood Count 6.1 # Red Blood Count 4.16 L Hemoglobin 9.8 L Hematocrit 32.6 L Mean Corpuscular Volume 78.4 L Mean Corpuscular Hemoglobin 23.6 L Mean Corpuscular Hemoglobin Concent 30.1 L Red Cell Distribution Width 21.2 H Platelet Count 644 H Mean Platelet Volume 10.8 H Immature Granulocytes % 0.500 H Neutrophils % 89.9 H Lymphocytes % 5.6 L Monocytes % 4.0 Eosinophils % 0.0 Basophils % 0.0 Nucleated Red Blood Cells % 0.0 Immature Granulocytes # 0.030 Neutrophils # 5.4 Lymphocytes # 0.3 L Monocytes # 0.2 L Eosinophils # 0.0 Basophils # 0.0 Nucleated Red Blood Cells # 0.0 Sodium Level 139 Potassium Level 5.5 H Chloride Level 99 Carbon Dioxide Level 30 Anion Gap 10 Blood Urea Nitrogen 38 #H Creatinine 0.89 Est Glomerular Filtrat Rate mL/min > 60 Glucose Level 179 Calcium Level 9.0 Exam/Review of Systems Exam Vitals Vital Signs Date Temp Pulse Resp B/P (MAP) Pulse Ox O2 O2 Flow FiO2 Time Delivery Rate 03/08/19 2.0 15:01 03/08/19 97.7 79 20 142/78 93 13:46 (99) 03/07/19 Nasal 21:00 Cannula Intake and Output 03/07/19 03/07/19 03/08/19 1515:00 23:00 07:00 IntakeIntake Total 1100 ml 860 ml 580 ml OutputOutput Total 750 ml 510 ml 610 ml BalanceBalance 350 ml 350 ml -30 ml Results Results 24hrs Laboratory Tests Test 03/08/19 05:01 White Blood Count 6.1 # Red Blood Count 4.16 L Hemoglobin 9.8 L Hematocrit 32.6 L Mean Corpuscular Volume 78.4 L Mean Corpuscular Hemoglobin 23.6 L Mean Corpuscular Hemoglobin Concent 30.1 L Red Cell Distribution Width 21.2 H Platelet Count 644 H Mean Platelet Volume 10.8 H Immature Granulocytes % 0.500 H Neutrophils % 89.9 H Lymphocytes % 5.6 L Monocytes % 4.0 Eosinophils % 0.0 Basophils % 0.0 Nucleated Red Blood Cells % 0.0 Immature Granulocytes # 0.030 Neutrophils # 5.4 Lymphocytes # 0.3 L Monocytes # 0.2 L Eosinophils # 0.0 Basophils # 0.0 Nucleated Red Blood Cells # 0.0 Sodium Level 139 Potassium Level 5.5 H Chloride Level 99 Carbon Dioxide Level 30 Anion Gap 10 Blood Urea Nitrogen 38 #H Creatinine 0.89 Est Glomerular Filtrat Rate mL/min > 60 Glucose Level 179 Calcium Level 9.0 Medications Medication Current Medications IV Flush (NS 3 ml) 3 ml PER PROTOCOL IV Last administered on 02/25/19 08:55; Admin Dose 3 ML; Start 02/21/19 at 01:30 Ondansetron HCl (Zofran Inj) 4 mg Q6H PRN IV NAUSEA/VOMITING Last administered on 03/01/19 20:32; Admin Dose 4 MG; Start 02/21/19 at 01:30 Docusate Sodium (Colace) 100 mg Q12H PRN PO .CONSTIPATION Last administered on 02/25/19 08:51; Admin Dose 100 MG; Start 02/21/19 at 01:30 Magnesium Hydroxide (Milk Of Mag) 30 ml DAILY PRN PO .CONSTIPATION; Start 02/21/19 at 01:30 Heparin Sodium (Porcine) (Heparin (5000 Units/1ml)) 5,000 unit Q12 SC Last administered on 03/08/19 08:42; Admin Dose 5,000 UNIT; Start 02/21/19 at 09:00 Albuterol/ Ipratropium (Duoneb) 3 ml Q4H RESP THERAPY PRN HHN SHORTNESS OF BREATH; Start 02/21/19 at 01:30 Hydralazine HCl (Apresoline) 10 mg Q6H PRN IV ELEVATED BLOOD PRESSURE; Start 02/21/19 at 01:30 Nitroglycerin (Nitroglycerin (Sl Tab) 0.4 Mg) 1 tab Q5M PRN SL ANGINA; Start at 01:30 Ferrous Sulfate (Ferrous Sulfate (Ec)) 325 mg DAILY PO Last administered on 03/08/19 08:42; Admin Dose 325 MG; Start 02/21/19 at 09:00 Guaifenesin (Robitussin Liquid Cup) 200 mg Q4H PRN PO COUGH Last administered on 03/04/19 03:52; Admin Dose 200 MG; Start 02/22/19 at 14:30 Polyethylene Glycol (Miralax) 17 gm BID PO Last administered on 03/08/19 08:42; Admin Dose 17 GM; Start 02/24/19 at 21:00 Bisacodyl (Dulcolax) 10 mg DAILY PRN PO CONSTIPATION; Start 02/24/19 at 15:30 Famotidine (Pepcid) 20 mg BID PO Last administered on 03/08/19 08:42; Admin Dose 20 MG; Start 02/26/19 at 21:00 Diphenhydramine HCl (Benadryl) 25 mg Q6H PRN IV allergy Last administered on 03/06/19 18:24; Admin Dose 25 MG; Start 03/03/19 at 10:30 Tobramycin (Tobramycin Iv Per Pharmacy) TOBRAMYCIN PER PHARMACY NOTE XX ; Start 03/03/19 at 16:00 Loratadine (Claritin) 10 mg DAILY PO Last administered on 03/08/19 08:42; Admin Dose 10 MG; Start 03/03/19 at 17:00 Tobramycin 500 mg/ Dextrose 112.5 ml @ 103.75 mls/ hr Q24H IVPB Last administered on 03/07/19 17:35; Admin Dose 103.75 MLS/HR; Start 03/03/19 at 18:00 Hydromorphone HCl (Dilaudid BUSPERSON) 0.5 MG/HR CONTINUOUS RATE ... Q4PCA IV Last administered on 03/08/19 09:19; Admin Dose 6 MG; Start 03/04/19 at 19:00 Hydromorphone HCl (Dilaudid) 1 mg Q2 PRN IV SEVERE PAIN LEVEL 7-10 Last administered on 03/04/19 21:20; Admin Dose 1 MG; Start 03/04/19 at 18:00 Methylprednisolone Sodium Succinate (Solu-Medrol) 125 mg Q6 IV Last administered on 03/08/19 12:05; Admin Dose 125 MG; Start 03/04/19 at 18:00 Metronidazole 100 ml @ 100 mls/hr Q8 IVPB Last administered on 03/08/19 14:11; Admin Dose 100 MLS/HR; Start 03/06/19 at 22:00 JIMENA STONE NP Mar 08, 2019 15:33
[2019-03-08] MEDS: TOBRAMYCIN 500 MG in DEXTROSE 5% 100 ML IVPB SCH (17:31)
[2019-03-08] MEDS ORDERED: HYDROmorphONE 0.5 MG/0.5 ML SYG IV PRN (23:30)
--- NOTE | 2019-03-08 23:43 | PN ---
Date/Time of Note Date/Time of Note DATE: 03/08/19 TIME: 23:40 Assessment/Plan Lines/Catheters IV Catheter Type (from Nrs): portacath Bah in Place (from Nrs): No Assessment/Plan Chief Complaint/Hosp Course 1. Splenic abnormality on CT with possible abscess versus hematoma versus cyst: reviewed ct with radiologist: probable splenic infarct; since now w leukocytosis and fevers reviewed CT again w Radiologist who believes it is abscess > s/p IR drain, cxs noted. Pain significantly improved. -abx per ID -pain control -supportive -dc planning 2. Bacteremia with ESBL and Cytrobacter, concern for endocarditis> status post KALEY 3. Sepsis secondary to above (blood, spleen, bowel, uti, cardiac valves, recent surgery), improved -IV antibiotics -IV fluids -drain care -continue supportive measures -continue aggressive pain control -possible need for splenectomy if does not improve > immunizations 4. Anemia stable 5. BMI 33 -diet/exercise optimization 6. Hives:? Etiology:? Allergic reaction -Per medical/ID team 7. Abdominal pain secondary to above improving Thank you Subjective 24 Hr Interval Summary s/p IR drain and pain significantly improved. 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 Cxs noted. WBC normalized. No fevers, chills, sob, congested cough, cp, palpitations, metz, dizziness, nausea, vomiting, diarrhea, dysuria. Loose stools, ruling out cdiff Exam/Review of Systems Vital Signs Vitals Vital Signs Date Temp Pulse Resp B/P (MAP) Pulse Ox O2 O2 Flow FiO2 Time Delivery Rate 03/08/19 18 23:15 03/08/19 97.7 60 128/74 93 20:00 (92) 03/08/19 2.0 15:01 03/07/19 Nasal 21:00 Cannula Intake and Output 03/07/19 03/07/19 03/08/19 1515:00 23:00 07:00 IntakeIntake Total 1100 ml 860 ml 580 ml OutputOutput Total 750 ml 510 ml 610 ml BalanceBalance 350 ml 350 ml -30 ml Exam Free Text/Dictation Constitutional: alert, oriented, distress (Minimal mainly due to pain), obese Psych: anxiety; No confusion Head: normocephalic, atraumatic Eyes: nl conjunctiva, EOMI, PERRL; No icteric ENMT: nl external ears & nose, nl lips & teeth Neck: supple, non-tender; No jvd Respiratory: normal air movement; No labored breathing, No wheezing Cardiovascular: regular rate and rhythm; No edema Gastrointestinal: soft, distended, left abdomen tenderness, drain No rebound or guarding Musculoskeletal: No nl gait and stance, No joint tenderness Extremities: normal pulses; No calf tenderness, No edema Neurological: nl mental status, nl speech Skin: nl turgor; hives No diaphoresis Lymph: nl lymph nodes Results Result Diagram: 03/08/19 0501 03/08/19 0501 ISAI RANDALL MD Mar 08, 2019 23:43
[2019-03-09] MEDS: METHYLPREDNISOLONE 125 MG INJ IV SCH ×3 (00:09→20:55)
[2019-03-09 01:11] VITALS: BP 126/66; PULSE 56; RESP 20
[2019-03-09] MEDS: metroNIDAZOLE 500 MG/NS (PMX) 100 ML IVPB SCH (05:33)
--- NOTE | 2019-03-09 05:43 | PN ---
Date/Time of Note Date/Time of Note DATE: 03/09/19 TIME: 05:43 Assessment/Plan VTE Prophylaxis Risk score (from Ns)>0 risk: 3 SCD applied (from Ns): No SCD contraindicated: other Pharmacological prophylaxis: heparin Lines/Catheters IV [facility] Type (from [facility] portacath Urinary Cath still in place: No Assessment/Plan Hospital Course SUBJECTIVE: Complains of frequent hiccups. 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 OBJECTIVE: Physical Exam General: Obese build 53 year-old male lying in bed in no apparent distress. HEENT: Normocephalic, atraumatic. Eyes: Anicteric sclerae, conjunctivae clear. ENT: Nasal septum midline, oral mucosa moist. Neck supple, no JVD noticed. Respiratory: Bilaterally clear breath sounds. No use of accessory muscles of re spiration. No adventitious breath sounds. Cardiovascular: S1, S2 heard. Regular rate and rhythm. Abdomen: Soft and nondistended. LUQ drain with brown colored fluid draining out. Bowel sounds positive in all 4 quadrants. Genitourinary: Deferred. Extremities: No cyanosis, no clubbing, no edema. Peripheral pulses palpable. Neurologic: Cranial nerves II through XII grossly intact. The patient is awake, alert, and oriented. Skin: Normal skin turgor. No skin rashes. Labs & Vitals per chart ASSESSMENT & PLAN 53-year-old male with past medical history of hemorrhoidal bleeding status post recent hemorrhoidectomy, iron deficiency anemia, and recent E. coli ESBL and Citrobacter bacteremia who presented to the emergency room complaining of chest pain or shortness of breath with signs of septic shock on pressor support. 1. Status post septic shock. Status post IV pressors. Culture showing E. coli ESBL bacteremia. Continue antimicrobials as per ID. 2. Splenic abscess. Status post CT-guided percutaneous drainage of splenic fluid collection on 03/05/2019. Fluid culture showing Pantoea agglomerans and Citrobacter koseri. Continue antimicrobials as per ID. 3. Chronic rectal bleeding. Monitor H&H closely. Transfuse blood products as needed. 4. Iron deficiency. Continue iron supplements. 5. Fluids, electrolytes, and nutrition. Regular diet. 6. DVT prophylaxis. SQ heparin. 7. Plan. Continue antimicrobials as per ID. Await clinical improvement before discharging the patient. The patient was seen in collaboration with Dr. Pepper. Result Diagram: 03/08/19 0501 03/08/19 0501 Exam/Review of Systems Exam Vitals Vital Signs Date Temp Pulse Resp B/P (MAP) Pulse Ox O2 O2 Flow FiO2 Time Delivery Rate 03/09/19 2.0 02:45 03/09/19 98.6 56 20 126/66 95 01:11 (86) 03/08/19 Nasal 19:45 Cannula Intake and Output 03/08/19 03/08/19 03/09/19 1515:00 23:00 07:00 IntakeIntake Total 1520 ml 1160 ml OutputOutput Total 550 ml 320 ml 300 ml BalanceBalance 970 ml 840 ml -300 ml Medications Medication Current Medications IV Flush (NS 3 ml) 3 ml PER PROTOCOL IV Last administered on 02/25/19 08:55; Admin Dose 3 ML; Start 02/21/19 at 01:30 Ondansetron HCl (Zofran Inj) 4 mg Q6H PRN IV NAUSEA/VOMITING Last administered on 03/01/19 20:32; Admin Dose 4 MG; Start 02/21/19 at 01:30 Docusate Sodium (Colace) 100 mg Q12H PRN PO .CONSTIPATION Last administered on 02/25/19 08:51; Admin Dose 100 MG; Start 02/21/19 at 01:30 Magnesium Hydroxide (Milk Of Mag) 30 ml DAILY PRN PO .CONSTIPATION; Start 02/21 at 01:30 Heparin Sodium (Porcine) (Heparin (5000 Units/1ml)) 5,000 unit Q12 SC Last administered on 03/08/19 21:42; Admin Dose 5,000 UNIT; Start 02/21/19 at 09:00 Albuterol/ Ipratropium (Duoneb) 3 ml Q4H RESP THERAPY PRN HHN SHORTNESS OF BREATH; Start 02/21/19 at 01:30 Hydralazine HCl (Apresoline) 10 mg Q6H PRN IV ELEVATED BLOOD PRESSURE; Start 02/21/19 at 01:30 Nitroglycerin (Nitroglycerin (Sl Tab) 0.4 Mg) 1 tab Q5M PRN SL ANGINA; Start 02/21/19 at 01:30 Ferrous Sulfate (Ferrous Sulfate (Ec)) 325 mg DAILY PO Last administered on 03/08/19 08:42; Admin Dose 325 MG; Start 02/21/19 at 09:00 Guaifenesin (Robitussin Liquid Cup) 200 mg Q4H PRN PO COUGH Last administered on 03/04/19 03:52; Admin Dose 200 MG; Start 02/22/19 at 14:30 Polyethylene Glycol (Miralax) 17 gm BID PO Last administered on 03/08/19 21:40; Admin Dose 17 GM; Start 02/24/19 at 21:00 Bisacodyl (Dulcolax) 10 mg DAILY PRN PO CONSTIPATION; Start 02/24/19 at 15:30 Famotidine (Pepcid) 20 mg BID PO Last administered on 03/08/19 21:39; Admin Dose 20 MG; Start 02/26/19 at 21:00 Diphenhydramine HCl (Benadryl) 25 mg Q6H PRN IV allergy Last administered on 03/06/19 18:24; Admin Dose 25 MG; Start 03/03/19 at 10:30 Tobramycin (Tobramycin Iv Per Pharmacy) TOBRAMYCIN PER PHARMACY NOTE XX ; Start 03/03/19 at 16:00 Loratadine (Claritin) 10 mg DAILY PO Last administered on 03/08/19 08:42; Admin Dose 10 MG; Start 03/03/19 at 17:00 Tobramycin 500 mg/ Dextrose 112.5 ml @ 103.75 mls/ hr Q24H IVPB Last administered on 03/08/19 17:31; Admin Dose 103.75 MLS/HR; Start 03/03/19 at 18:00 Hydromorphone HCl (Dilaudid) 1 mg Q2 PRN IV SEVERE PAIN LEVEL 7-10 Last administered on 03/04/19 21:20; Admin Dose 1 MG; Start 03/04/19 at 18:00 Methylprednisolone Sodium Succinate (Solu-Medrol) 125 mg Q6 IV Last administered on 03/09/19 05:32; Admin Dose 125 MG; Start 03/04/19 at 18:00 Metronidazole 100 ml @ 100 mls/hr Q8 IVPB Last administered on 03/09/19 05:33; Admin Dose 100 MLS/HR; Start 03/06/19 at 22:00 Hydromorphone HCl (Dilaudid) 0.5 mg Q4H PRN IV SEVERE PAIN LEVEL 7-10; Start 03/08/19 at 23:30 JIMENA STONE NP Mar 09, 2019 05:43
[2019-03-09] MEDS: ONDANSETRON 4 MG INJ IV PRN (06:22)
[2019-03-09 07:25] VITALS: BP 123/71; PULSE 54; RESP 20
[2019-03-09] MEDS: FERROUS SULFATE (EC) 325 MG TAB PO SCH (09:17)
[2019-03-09] MEDS: FAMOTIDINE 20 MG TAB PO SCH ×2 (09:17→20:55)
[2019-03-09] MEDS: POLYETHYLENE GLYCOL 17 GM PACKET PO SCH ×2 (09:17→20:55)
[2019-03-09] MEDS: LORATADINE 10 MG TAB PO SCH (09:17)
[2019-03-09] MEDS: HEPARIN 5,000 UNIT/1 ML VIAL SC SCH ×2 (09:22→21:01)
--- NOTE | 2019-03-09 09:26 | PN ---
Date/Time of Note Date/Time of Note DATE: 03/09/19 TIME: 09:22 Assessment/Plan Lines/Catheters IV Catheter Type (from Nrs): portacath Bah in Place (from Nrs): No Assessment/Plan Chief Complaint/Hosp Course 1. Splenic abnormality on CT with possible abscess versus hematoma versus cyst: reviewed ct with radiologist: probable splenic infarct; since now w leukocytosis and fevers reviewed CT again w Radiologist who believes it is abscess > s/p IR drain, cxs noted. Pain significantly improved. -abx per ID -pain control> nonnarcotics as able -supportive -dc planning with drain; home health 2. Bacteremia with ESBL and Cytrobacter, concern for endocarditis> status post KALEY 3. Sepsis secondary to above (blood, spleen, bowel, uti, cardiac valves, recent surgery), resolved 4. Anemia stable 5. BMI 33 -diet/exercise optimization 6. Hives:? Etiology:? Allergic reaction -Per medical/ID team 7. Abdominal pain secondary to above improving 8. Bradycardia: Improving - monitor Thank you. Patient seen and examined in collaboration with Dr. Yuriy Wu. Subjective 24 Hr Interval Summary Crying. Reportedly had hallucinations overnight. Abdominal pain much improved. Continues to have output from drain. No fevers, chills, sob, congested cough, cp, palpitations, metz, dizziness, nausea, vomiting, diarrhea, dysuria. Exam/Review of Systems Vital Signs Vitals Vital Signs Date Temp Pulse Resp B/P (MAP) Pulse Ox O2 O2 Flow FiO2 Time Delivery Rate 03/09/19 98.2 54 20 123/71 97 07:25 (88) 03/09/19 2.0 02:45 03/08/19 Nasal 19:45 Cannula Intake and Output 03/08/19 03/08/19 03/09/19 1515:00 23:00 07:00 IntakeIntake Total 1520 ml 1160 ml 580 ml OutputOutput Total 550 ml 320 ml 325 ml BalanceBalance 970 ml 840 ml 255 ml Exam Free Text/Dictation Constitutional: alert, oriented, NAD Psych: Crying No confusion Head: normocephalic, atraumatic Eyes: nl conjunctiva, EOMI, PERRL; No icteric ENMT: nl external ears & nose, nl lips & teeth Neck: supple, non-tender; No jvd Respiratory: normal air movement; No labored breathing, No wheezing Cardiovascular: regular rate and rhythm; No edema Gastrointestinal: soft, distended, left abdomen tenderness, drain No rebound or guarding Musculoskeletal: No nl gait and stance, No joint tenderness Extremities: normal pulses; No calf tenderness, No edema Neurological: nl mental status, nl speech Skin: nl turgor; hives No diaphoresis Lymph: nl lymph nodes Results Result Diagram: 03/09/19 0423 03/09/19 0423 BRUNO SALDANA NP Mar 09, 2019 09:26
[2019-03-09 14:20] VITALS: BP 115/65; PULSE 67; RESP 20
--- NOTE | 2019-03-09 16:19 | CONS ---
Assessment/Plan Assessment/Plan Hospital Course (Demo Recall) No events, no fevers, looks comfortable Microbiology: Urine culture repeatednegative. Blood culture on admission grew E. coli ESBL, repeat blood cultures negative. Fluid culture grew Pantoea, both susceptible to tobramycin a and Citrobacter Antimicrobials: Tobramycin Allergy: Meropenem, causes rash Indwelling: Right chest Port-A-Cath, left-sided abdominal catheter Physical examination: This is well-nourished ill-appearing middle-aged man who is alert in no distress. Head atraumatic normocephalic neck is supple chest rise symmetrical breath sounds diminished to bases heart: S1-S2 abdomen obese soft bowel sounds present extremities with trace edema Assessment: 1. Sepsis with recurrent bacteremia ===> KALEY negative 2. Splenomegaly with abscess===> s/p CT guided drainage 120 cc 3. B pleural effusion, possible pneumonia 5. Chronic anemia 6. History of E. coli ESBL and Citrobacter bacteremia on January 31, 2019 7. Status post open hemorrhoidectomy 01/27/19 Plan: Remains stable, continue abx Consultation Date/Type/Reason Admit Date/Time Feb 20, 2019 at 23:21 Initial Consult Date Type of Consult id Requesting Provider: DANIELA BRUNSON Date/Time of Note DATE: 03/09/19 TIME: 16:18 Exam/Review of Systems Exam Vitals Vital Signs Date Temp Pulse Resp B/P (MAP) Pulse Ox O2 O2 Flow FiO2 Time Delivery Rate 03/09/19 98.0 67 20 115/65 96 14:20 (82) 03/09/19 Nasal 2.0 08:00 Cannula Intake and Output 03/08/19 03/08/19 03/09/19 1515:00 23:00 07:00 IntakeIntake Total 1520 ml 1160 ml 580 ml OutputOutput Total 550 ml 320 ml 325 ml BalanceBalance 970 ml 840 ml 255 ml Results Result Diagram: 03/09/19 0423 03/09/19 0423 Results 24hrs Laboratory Tests Test 03/09/19 04:23 White Blood Count 3.8 #L Red Blood Count 4.15 L Hemoglobin 9.8 L Hematocrit 32.2 L Mean Corpuscular Volume 77.6 L Mean Corpuscular Hemoglobin 23.6 L Mean Corpuscular Hemoglobin Concent 30.4 L Red Cell Distribution Width 21.0 H Platelet Count 544 H Mean Platelet Volume 10.2 Immature Granulocytes % 0.500 H Neutrophils % 86.2 H Lymphocytes % 9.4 L Monocytes % 3.9 Eosinophils % 0.0 Basophils % 0.0 Nucleated Red Blood Cells % 0.0 Immature Granulocytes # 0.020 Neutrophils # 3.3 Lymphocytes # 0.4 L Monocytes # 0.2 L Eosinophils # 0.0 Basophils # 0.0 Nucleated Red Blood Cells # 0.0 Sodium Level 138 Potassium Level 4.1 Chloride Level 103 Carbon Dioxide Level 29 Anion Gap 6 Blood Urea Nitrogen 27 #H Creatinine 0.67 Est Glomerular Filtrat Rate mL/min > 60 Glucose Level 179 Calcium Level 8.6 Phosphorus Level 2.9 Magnesium Level 1.7 Medications Medication Current Medications IV Flush (NS 3 ml) 3 ml PER PROTOCOL IV Last administered on 02/25/19 08:55; Admin Dose 3 ML; Start 02/21/19 at 01:30 Ondansetron HCl (Zofran Inj) 4 mg Q6H PRN IV NAUSEA/VOMITING Last administered on 03/09/19 06:22; Admin Dose 4 MG; Start 02/21/19 at 01:30 Docusate Sodium (Colace) 100 mg Q12H PRN PO .CONSTIPATION Last administered on 02/25/19 08:51; Admin Dose 100 MG; Start 02/21/19 at 01:30 Magnesium Hydroxide (Milk Of Mag) 30 ml DAILY PRN PO .CONSTIPATION; Start 02/21/19 at 01:30 Heparin Sodium (Porcine) (Heparin (5000 Units/1ml)) 5,000 unit Q12 SC Last administered on 03/09/19 09:22; Admin Dose 5,000 UNIT; Start 02/21/19 at 09:00 Albuterol/ Ipratropium (Duoneb) 3 ml Q4H RESP THERAPY PRN HHN SHORTNESS OF BREATH; Start 02/21/19 at 01:30 Hydralazine HCl (Apresoline) 10 mg Q6H PRN IV ELEVATED BLOOD PRESSURE; Start 02/21/19 at 01:30 Nitroglycerin (Nitroglycerin (Sl Tab) 0.4 Mg) 1 tab Q5M PRN SL ANGINA; Start 02/21/19 at 01:30 Ferrous Sulfate (Ferrous Sulfate (Ec)) 325 mg DAILY PO Last administered on 03/09/19 09:17; Admin Dose 325 MG; Start 02/21/19 at 09:00 Guaifenesin (Robitussin Liquid Cup) 200 mg Q4H PRN PO COUGH Last administered on 03/04/19 03:52; Admin Dose 200 MG; Start 02/22/19 at 14:30 Polyethylene Glycol (Miralax) 17 gm BID PO Last administered on 03/09/19 09:17; Admin Dose 17 GM; Start 02/24/19 at 21:00 Bisacodyl (Dulcolax) 10 mg DAILY PRN PO CONSTIPATION; Start 02/24/19 at 15:30 Famotidine (Pepcid) 20 mg BID PO Last administered on 03/09/19 09:17; Admin Dose 20 MG; Start 02/26/19 at 21:00 Diphenhydramine HCl (Benadryl) 25 mg Q6H PRN IV allergy Last administered on 03/06/19 18:24; Admin Dose 25 MG; Start 03/03/19 at 10:30 Tobramycin (Tobramycin Iv Per Pharmacy) TOBRAMYCIN PER PHARMACY NOTE XX ; Start 03/03/19 at 16:00 Loratadine (Claritin) 10 mg DAILY PO Last administered on 03/09/19 09:17; Admin Dose 10 MG; Start 03/03/19 at 17:00 Tobramycin 500 mg/ Dextrose 112.5 ml @ 103.75 mls/ hr Q24H IVPB Last administered on 03/08/19 17:31; Admin Dose 103.75 MLS/HR; Start 03/03/19 at 18:00 Hydromorphone HCl (Dilaudid) 1 mg Q2 PRN IV SEVERE PAIN LEVEL 7-10 Last administered on 03/04/19 21:20; Admin Dose 1 MG; Start 03/04/19 at 18:00 Hydromorphone HCl (Dilaudid) 0.5 mg Q4H PRN IV SEVERE PAIN LEVEL 7-10; Start 03/08/19 at 23:30 Miscellaneous Information (*Rx Drug Level Order Reminder*) 1 1700 ONCE XX ; Start 03/10/19 at 17:00; Stop 03/10/19 at 17:01 Methylprednisolone Sodium Succinate (Solu-Medrol) 60 mg BID IV ; Start 03/09/19 at 21:00 JAYRO SANTIAGO NP Mar 09, 2019 16:19
[2019-03-09] MEDS: TOBRAMYCIN 500 MG in DEXTROSE 5% 100 ML IVPB SCH (18:20)
[2019-03-09 19:30] VITALS: BP 131/81; PULSE 65; RESP 20
[2019-03-10 01:38] VITALS: BP 118/65; RESP 19
--- NOTE | 2019-03-10 05:44 | PN ---
Date/Time of Note Date/Time of Note DATE: 03/10/19 TIME: 05:44 Assessment/Plan VTE Prophylaxis Risk score (from Ns)>0 risk: 3 SCD applied (from [facility]): No SCD contraindicated: other Pharmacological prophylaxis: heparin Lines/Catheters IV Catheter Type (from [facility]): PORT-A-CATH Urinary Cath still in place: No Assessment/Plan Hospital Course SUBJECTIVE: Feeling better. 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 OBJECTIVE: Physical Exam General: Obese build 53 year-old male lying in bed in no apparent distress. HEENT: Normocephalic, atraumatic. Eyes: Anicteric sclerae, conjunctivae clear. ENT: Nasal septum midline, oral mucosa moist. Neck supple, no JVD noticed. Respiratory: Bilaterally clear breath sounds. No use of accessory muscles of respiration. No adventitious breath sounds. Cardiovascular: S1, S2 heard. Regular rate and rhythm. Abdomen: Soft and nondistended. LUQ drain with brown colored fluid draining out. Bowel sounds positive in all 4 quadrants. Genitourinary: Deferred. Extremities: No cyanosis, no clubbing, no edema. Peripheral pulses palpable. Neurologic: Cranial nerves II through XII grossly intact. The patient is awake, alert, and oriented. Skin: Normal skin turgor. No skin rashes. Labs & Vitals per chart ASSESSMENT & PLAN 53-year-old male with past medical history of hemorrhoidal bleeding status post recent hemorrhoidectomy, iron deficiency anemia, and recent E. coli ESBL and Citrobacter bacteremia who presented to the emergency room complaining of chest pain or shortness of breath with signs of septic shock on pressor support. 1. Status post septic shock. Status post IV pressors. Culture showing E. coli ESBL bacteremia. Continue antimicrobials as per ID. 2. Splenic abscess. Status post CT-guided percutaneous drainage of splenic fluid collection on 03/05/2019. Fluid culture showing Pantoea agglomerans and Citrobacter koseri. Continue antimicrobials as per ID. 3. Chronic rectal bleeding. Monitor H&H closely. Transfuse blood products as needed. 4. Iron deficiency. Continue iron supplements. 5. Fluids, electrolytes, and nutrition. Regular diet. 6. DVT prophylaxis. SQ heparin. 7. Plan. Continue antimicrobials as per ID. Await clinical improvement before discharging the patient. The patient was seen in collaboration with Dr. Pepper. Result Diagram: 03/09/19 0423 03/09/19 0423 Results 24hrs Laboratory Tests Test 03/10/19 05:01 White Blood Count Pending Red Blood Count Pending Hemoglobin Pending Hematocrit Pending Mean Corpuscular Volume Pending Mean Corpuscular Hemoglobin Pending Mean Corpuscular Hemoglobin Concent Pending Red Cell Distribution Width Pending Platelet Count Pending Mean Platelet Volume Pending Exam/Review of Systems Exam Vitals Vital Signs Date Temp Pulse Resp B/P (MAP) Pulse Ox O2 O2 Flow FiO2 Time Delivery Rate 03/10/19 2.0 02:55 03/10/19 98.0 19 118/65 96 01:38 (82) 03/09/19 65 19:30 03/09/19 Nasal 08:00 Cannula Intake and Output 03/09/19 03/09/19 03/10/19 1515:00 23:00 07:00 IntakeIntake Total 1080 ml 872.5 ml OutputOutput Total 350 ml 500 ml BalanceBalance 730 ml 372.5 ml Results Results 24hrs Laboratory Tests Test 03/10/19 05:01 White Blood Count Pending Red Blood Count Pending Hemoglobin Pending Hematocrit Pending Mean Corpuscular Volume Pending Mean Corpuscular Hemoglobin Pending Mean Corpuscular Hemoglobin Concent Pending Red Cell Distribution Width Pending Platelet Count Pending Mean Platelet Volume Pending Medications Medication Current Medications IV Flush (NS 3 ml) 3 ml PER PROTOCOL IV Last administered on 02/25/19 08:55; Admin Dose 3 ML; Start 02/21/19 at 01:30 Ondansetron HCl (Zofran Inj) 4 mg Q6H PRN IV NAUSEA/VOMITING Last administered on 03/09/19at 06:22; Admin Dose 4 MG; Start 02/21/19 at 01:30 Docusate Sodium (Colace) 100 mg Q12H PRN PO .CONSTIPATION Last administered on 02/25/19 08:51; Admin Dose 100 MG; Start 02/21/19 at 01:30 Magnesium Hydroxide (Milk Of Mag) 30 ml DAILY PRN PO .CONSTIPATION; Start 02/21/19 at 01:30 Heparin Sodium (Porcine) (Heparin (5000 Units/1ml)) 5,000 unit Q12 SC Last administered on 03/09/19at 21:01; Admin Dose 5,000 UNIT; Start 02/21/19 at 09:00 Albuterol/ Ipratropium (Duoneb) 3 ml Q4H RESP THERAPY PRN HHN SHORTNESS OF BREATH; Start 02/21/19 at 01:30 Hydralazine HCl (Apresoline) 10 mg Q6H PRN IV ELEVATED BLOOD PRESSURE; Start 02/21/19 at 01:30 Nitroglycerin (Nitroglycerin (Sl Tab) 0.4 Mg) 1 tab Q5M PRN SL ANGINA; Start 02/21/19 at 01:30 Ferrous Sulfate (Ferrous Sulfate (Ec)) 325 mg DAILY PO Last administered on 03/09/19 09:17; Admin Dose 325 MG; Start 02/21/19 at 09:00 Guaifenesin (Robitussin Liquid Cup) 200 mg Q4H PRN PO COUGH Last administered on 03/04/19 03:52; Admin Dose 200 MG; Start 02/22/19 at 14:30 Polyethylene Glycol (Miralax) 17 gm BID PO Last administered on 03/09/19 20:55; Admin Dose 17 GM; Start 02/24/19 at 21:00 Bisacodyl (Dulcolax) 10 mg DAILY PRN PO CONSTIPATION; Start 02/24/19 at 15:30 Famotidine (Pepcid) 20 mg BID PO Last administered on 03/09/19 20:55; Admin Dose 20 MG; Start 02/26/19 at 21:00 Diphenhydramine HCl (Benadryl) 25 mg Q6H PRN IV allergy Last administered on 03/06/19 18:24; Admin Dose 25 MG; Start 03/03/19 at 10:30 Tobramycin (Tobramycin Iv Per Pharmacy) TOBRAMYCIN PER PHARMACY NOTE XX ; Start 03/03/19 at 16:00 Loratadine (Claritin) 10 mg DAILY PO Last administered on 03/09/19 09:17; Admin Dose 10 MG; Start 03/03/19 at 17:00 Tobramycin 500 mg/ Dextrose 112.5 ml @ 103.75 mls/ hr Q24H IVPB Last administered on 03/09/19 18:20; Admin Dose 103.75 MLS/HR; Start 03/03/19 at 18:00 Hydromorphone HCl (Dilaudid) 1 mg Q2 PRN IV SEVERE PAIN LEVEL 7-10 Last administered on 03/04/19at 21:20; Admin Dose 1 MG; Start 03/04/19 at 18:00 Hydromorphone HCl (Dilaudid) 0.5 mg Q4H PRN IV SEVERE PAIN LEVEL 7-10; Start 03/08/19 at 23:30 Miscellaneous Information (*Rx Drug Level Order Reminder*) 1 1700 ONCE XX ; Start 03/10/19 at 17:00; Stop 03/10/19 at 17:01 Methylprednisolone Sodium Succinate (Solu-Medrol) 60 mg BID IV Last administered on 03/09/19at 20:55; Admin Dose 60 MG; Start 03/09/19 at 21:00 JIMENA STONE NP Mar 10, 2019 05:44
[2019-03-10 08:08] VITALS: BP 117/72; PULSE 55; RESP 18
[2019-03-10] MEDS: METHYLPREDNISOLONE 125 MG INJ IV SCH ×2 (09:16→21:17)
[2019-03-10] MEDS: LORATADINE 10 MG TAB PO SCH (09:16)
[2019-03-10] MEDS: POLYETHYLENE GLYCOL 17 GM PACKET PO SCH ×2 (09:16→21:16)
[2019-03-10] MEDS: FAMOTIDINE 20 MG TAB PO SCH ×2 (09:16→21:17)
[2019-03-10] MEDS: FERROUS SULFATE (EC) 325 MG TAB PO SCH (09:16)
[2019-03-10] MEDS: HEPARIN 5,000 UNIT/1 ML VIAL SC SCH ×2 (09:19→21:20)
--- NOTE | 2019-03-10 10:50 | PN ---
Date/Time of Note Date/Time of Note DATE: 03/10/19 TIME: 10:49 Assessment/Plan Lines/Catheters IV Catheter Type (from Nrs): port-a--cath Bah in Place (from Nrs): No Assessment/Plan Chief Complaint/Hosp Course 1. Splenic abnormality on CT with possible abscess versus hematoma versus cyst: reviewed ct with radiologist: probable splenic infarct; since now w leukocytosis and fevers reviewed CT again w Radiologist who believes it is abscess > s/p IR drain, cxs noted. Pain significantly improved. -abx per ID -pain control> nonnarcotics as able -supportive -We will obtain CT to evaluate fluid collection size 2. Bacteremia with ESBL and Cytrobacter, concern for endocarditis> status post KALEY 3. Sepsis secondary to above (blood, spleen, bowel, uti, cardiac valves, recent surgery), resolved 4. Anemia stable 5. BMI 33 -diet/exercise optimization 6. Hives:? Etiology:? Allergic reaction -Per medical/ID team 7. Abdominal pain secondary to above improving 8. Bradycardia: Improving - monitor Thank you. Patient seen and examined in collaboration with Dr. Yuriy Wu. Subjective 24 Hr Interval Summary Depressed. Anxious for discharge. Improved abdominal pain. No fevers, chills, sob, congested cough, cp, palpitations, metz, dizziness, nausea, vomiting, diarrhea, dysuria. Exam/Review of Systems Vital Signs Vitals Vital Signs Date Temp Pulse Resp B/P (MAP) Pulse Ox O2 O2 Flow FiO2 Time Delivery Rate 03/10/19 98.2 55 18 117/72 93 Room Air 08:08 (87) 03/10/19 2.0 02:55 Intake and Output 03/09/19 03/09/19 03/10/19 1515:00 23:00 07:00 IntakeIntake Total 1080 ml 872.5 ml OutputOutput Total 350 ml 500 ml 20 ml BalanceBalance 730 ml 372.5 ml -20 ml Exam Free Text/Dictation Constitutional: alert, oriented, NAD Psych: Crying No confusion Head: normocephalic, atraumatic Eyes: nl conjunctiva, EOMI, PERRL; No icteric ENMT: nl external ears & nose, nl lips & teeth Neck: supple, non-tender; No jvd Respiratory: normal air movement; No labored breathing, No wheezing Cardiovascular: regular rate and rhythm; No edema Gastrointestinal: soft, distended, left abdomen tenderness, drain No rebound or guarding Musculoskeletal: No nl gait and stance, No joint tenderness Extremities: normal pulses; No calf tenderness, No edema Neurological: nl mental status, nl speech Skin: nl turgor; hives No diaphoresis Lymph: nl lymph nodes Results Result Diagram: 03/10/19 0501 03/10/19 0501 BRUNO SALDANA NP Mar 10, 2019 10:50
--- NOTE | 2019-03-10 14:18 | CONS ---
Assessment/Plan Assessment/Plan Hospital Course (Demo Recall) No acute events overnight patient is sleeping looks comfortable no fevers Microbiology: Urine culture negative. Blood culture on admission grew E. coli ESBL, repeat blood cultures negative. Fluid culture grew Pantoea, both susceptible to tobramycin a and Citrobacter Antimicrobials: Tobramycin Allergy: Meropenem, causes rash Indwelling: Right chest Port-A-Cath, left-sided abdominal catheter Physical examination: This is well-nourished ill-appearing middle-aged man who is alert in no distress. Head atraumatic normocephalic neck is supple chest rise symmetrical breath sounds diminished to bases heart: S1-S2 abdomen obese soft bowel sounds present extremities with trace edema Assessment: 1. Sepsis with recurrent bacteremia ===> KALEY negative 2. Splenomegaly with abscess===> s/p CT guided drainage 120 cc 3. B pleural effusion, possible pneumonia 5. Chronic anemia 6. History of E. coli ESBL and Citrobacter bacteremia on January 31, 2019 7. Status post open hemorrhoidectomy 01/27/19 Plan: Remains stable, continue abx follow repeat CT abdomen Consultation Date/Type/Reason Admit Date/Time Feb 20, 2019 at 23:21 Initial Consult Date Type of Consult id Requesting Provider: DANIELA BRUNSON Date/Time of Note DATE: 03/10/19 TIME: 14:17 Exam/Review of Systems Exam Vitals Vital Signs Date Temp Pulse Resp B/P (MAP) Pulse Ox O2 O2 Flow FiO2 Time Delivery Rate 03/10/19 98.2 55 18 117/72 93 Room Air 08:08 (87) 03/10/19 2.0 02:55 Intake and Output 03/09/19 03/09/19 03/10/19 1515:00 23:00 07:00 IntakeIntake Total 1080 ml 872.5 ml OutputOutput Total 350 ml 500 ml 20 ml BalanceBalance 730 ml 372.5 ml -20 ml Results Result Diagram: 03/10/19 0501 03/10/19 0501 Results 24hrs Laboratory Tests Test 03/10/19 05:01 White Blood Count 4.7 #L Red Blood Count 4.28 L Hemoglobin 10.4 L Hematocrit 33.1 L Mean Corpuscular Volume 77.3 L Mean Corpuscular Hemoglobin 24.3 L Mean Corpuscular Hemoglobin Concent 31.4 L Red Cell Distribution Width 20.9 H Platelet Count 527 H Mean Platelet Volume 10.2 Immature Granulocytes % 0.800 H Neutrophils % 84.7 H Lymphocytes % 9.6 L Monocytes % 4.7 Eosinophils % 0.0 Basophils % 0.2 Nucleated Red Blood Cells % 0.0 Immature Granulocytes # 0.040 H Neutrophils # 4.0 Lymphocytes # 0.5 L Monocytes # 0.2 L Eosinophils # 0.0 Basophils # 0.0 Nucleated Red Blood Cells # 0.0 Sodium Level 142 Potassium Level 4.4 Chloride Level 100 Carbon Dioxide Level 33 H Anion Gap 9 Blood Urea Nitrogen 28 H Creatinine 0.81 Est Glomerular Filtrat Rate mL/min > 60 Glucose Level 189 Calcium Level 8.9 Phosphorus Level 3.5 Magnesium Level 1.8 Medications Medication Current Medications IV Flush (NS 3 ml) 3 ml PER PROTOCOL IV Last administered on 02/25/19 08:55; Admin Dose 3 ML; Start 02/21/19 at 01:30 Ondansetron HCl (Zofran Inj) 4 mg Q6H PRN IV NAUSEA/VOMITING Last administered on 03/09/19 06:22; Admin Dose 4 MG; Start 02/21/19 at 01:30 Docusate Sodium (Colace) 100 mg Q12H PRN PO .CONSTIPATION Last administered on 02/25/19 08:51; Admin Dose 100 MG; Start 02/21/19 at 01:30 Magnesium Hydroxide (Milk Of Mag) 30 ml DAILY PRN PO .CONSTIPATION; Start 02/21/19 at 01:30 Heparin Sodium (Porcine) (Heparin (5000 Units/1ml)) 5,000 unit Q12 SC Last administered on 03/10/19at 09:19; Admin Dose 5,000 UNIT; Start 02/21/19 at 09:00 Albuterol/ Ipratropium (Duoneb) 3 ml Q4H RESP THERAPY PRN HHN SHORTNESS OF BREATH; Start 02/21/19 at 01:30 Hydralazine HCl (Apresoline) 10 mg Q6H PRN IV ELEVATED BLOOD PRESSURE; Start 02/21/19 at 01:30 Nitroglycerin (Nitroglycerin (Sl Tab) 0.4 Mg) 1 tab Q5M PRN SL ANGINA; Start 02/21/19 at 01:30 Ferrous Sulfate (Ferrous Sulfate (Ec)) 325 mg DAILY PO Last administered on 03/10/19 09:16; Admin Dose 325 MG; Start 02/21/19 at 09:00 Guaifenesin (Robitussin Liquid Cup) 200 mg Q4H PRN PO COUGH Last administered on 03/04/19at 03:52; Admin Dose 200 MG; Start 02/22/19 at 14:30 Polyethylene Glycol (Miralax) 17 gm BID PO Last administered on 03/10/19 09:16; Admin Dose 17 GM; Start 02/24/19 at 21:00 Bisacodyl (Dulcolax) 10 mg DAILY PRN PO CONSTIPATION; Start 02/24/19 at 15:30 Famotidine (Pepcid) 20 mg BID PO Last administered on 03/10/19 09:16; Admin Dose 20 MG; Start 02/26/19 at 21:00 Diphenhydramine HCl (Benadryl) 25 mg Q6H PRN IV allergy Last administered on 03/06/19 18:24; Admin Dose 25 MG; Start 03/03/19 at 10:30 Tobramycin (Tobramycin Iv Per Pharmacy) TOBRAMYCIN PER PHARMACY NOTE XX ; Start 03/03/19 at 16:00 Loratadine (Claritin) 10 mg DAILY PO Last administered on 03/10/19 09:16; Admin Dose 10 MG; Start 03/03/19 at 17:00 Tobramycin 500 mg/ Dextrose 112.5 ml @ 103.75 mls/ hr Q24H IVPB Last administered on 03/09/19 18:20; Admin Dose 103.75 MLS/HR; Start 03/03/19 at 18:00 Hydromorphone HCl (Dilaudid) 1 mg Q2 PRN IV SEVERE PAIN LEVEL 7-10 Last administered on 03/04/19 21:20; Admin Dose 1 MG; Start 03/04/19 at 18:00 Hydromorphone HCl (Dilaudid) 0.5 mg Q4H PRN IV SEVERE PAIN LEVEL 7-10; Start 03/08/19 at 23:30 Miscellaneous Information (*Rx Drug Level Order Reminder*) 1 1700 ONCE XX ; Start 03/10/19 at 17:00; Stop 03/10/19 at 17:01 Methylprednisolone Sodium Succinate (Solu-Medrol) 60 mg BID IV Last ad ministered on 03/10/19at 09:16; Admin Dose 60 MG; Start 03/09/19 at 21:00 JAYRO SANTIAGO NP Mar 10, 2019 14:18
[2019-03-10] MEDS: TOBRAMYCIN 500 MG in DEXTROSE 5% 100 ML IVPB SCH (18:09)
[2019-03-10 19:37] VITALS: BP 149/82; PULSE 98; RESP 19
[2019-03-11 02:01] VITALS: BP 119/66; PULSE 50; RESP 18
[2019-03-11 08:23] VITALS: BP 117/68; PULSE 50; RESP 20
[2019-03-11] MEDS: LORATADINE 10 MG TAB PO SCH (09:07)
[2019-03-11] MEDS: FAMOTIDINE 20 MG TAB PO SCH ×2 (09:07→22:10)
[2019-03-11] MEDS: FERROUS SULFATE (EC) 325 MG TAB PO SCH (09:07)
[2019-03-11] MEDS: POLYETHYLENE GLYCOL 17 GM PACKET PO SCH ×2 (09:09→22:10)
[2019-03-11] MEDS: HEPARIN 5,000 UNIT/1 ML VIAL SC SCH ×2 (09:09→22:24)
[2019-03-11] MEDS: METHYLPREDNISOLONE 125 MG INJ IV SCH ×2 (09:09→22:10)
--- NOTE | 2019-03-11 12:03 | PN ---
Date/Time of Note Date/Time of Note DATE: 03/11/19 TIME: 12:00 Assessment/Plan Lines/Catheters IV Catheter Type (from Nrs): portacath Bah in Place (from Nrsg): No Assessment/Plan Chief Complaint/Hosp Course 1. Splenic abnormality on CT with possible abscess versus hematoma versus cyst: reviewed ct with radiologist: probable splenic infarct; since now w leukocytosis and fevers reviewed CT again w Radiologist who believes it is abscess > s/p IR drain, cxs noted. Pain significantly improved. CT noted with persistent collection. -abx per ID -pain control> nonnarcotics as able -supportive -continue drain- flush q shift -Ok for dc from surgical standpoint with drain and hh for drain care, abx per ID. To follow w us in 1 week. 2. Bacteremia with ESBL and Cytrobacter, concern for endocarditis> status post KALEY 3. Sepsis secondary to above (blood, spleen, bowel, uti, cardiac valves, recent surgery), resolved 4. Anemia stable 5. BMI 33 -diet/exercise optimization 6. Hives:? Etiology:? Allergic reaction: resolved 7. Abdominal pain secondary to above improving 8. Bradycardia: Improving - monitor Thank you. Patient seen and examined in collaboration with Dr. Yuriy Wu. Subjective 24 Hr Interval Summary Repeat CT noted. No fevers, chills, sob, congested cough, cp, palpitations, metz, dizziness, n/v/d/dysuria. Continues to have drainage from pigtail cath. Exam/Review of Systems Vital Signs Vitals Vital Signs Date Temp Pulse Resp B/P (MAP) Pulse Ox O2 O2 Flow FiO2 Time Delivery Rate 03/11/19 Nasal 2.0 09:54 Cannula 03/11/19 98.4 50 20 117/68 92 08:23 (84) Intake and Output 03/10/19 03/10/19 03/11/19 1515:00 23:00 07:00 IntakeIntake Total 720 ml 352.5 ml OutputOutput Total 10 ml 420 ml BalanceBalance 720 ml 342.5 ml -420 ml Exam Free Text/Dictation Constitutional: alert, oriented, NAD Psych: Crying No confusion Head: normocephalic, atraumatic Eyes: nl conjunctiva, EOMI, PERRL; No icteric ENMT: nl external ears & nose, nl lips & teeth Neck: supple, non-tender; No jvd Respiratory: normal air movement; No labored breathing, No wheezing Cardiovascular: regular rate and rhythm; No edema Gastrointestinal: soft, distended, left abdomen tenderness, drain No rebound or guarding Musculoskeletal: No nl gait and stance, No joint tenderness Extremities: normal pulses; No calf tenderness, No edema Neurological: nl mental status, nl speech Skin: nl turgor; hives No diaphoresis Lymph: nl lymph nodes Results Result Diagram: 03/11/19 0438 03/11/19 0438 BRUNO SALDANA NP Mar 11, 2019 12:03
--- NOTE | 2019-03-11 12:42 | CONS ---
Assessment/Plan Assessment/Plan Hospital Course (Demo Recall) No acute events overnight patient looks comfortable Microbiology: Urine culture negative. Blood culture on admission grew E. coli ESBL, repeat blood cultures negative. Fluid culture grew Pantoea, both susceptible to tobramycin a and Citrobacter Antimicrobials: Tobramycin Allergy: Meropenem, causes rash Indwelling: Right chest Port-A-Cath, left-sided abdominal catheter Physical examination: This is well-nourished ill-appearing middle-aged man who is alert in no distress. Head atraumatic normocephalic neck is supple chest rise symmetrical breath sounds diminished to bases heart: S1-S2 abdomen obese soft bowel sounds present extremities with trace edema Assessment: 1. Sepsis with recurrent bacteremia ===> KALEY negative 2. Splenomegaly with abscess===> s/p CT guided drainage 120 cc 3. B pleural effusion, possible pneumonia 5. Chronic anemia 6. History of E. coli ESBL and Citrobacter bacteremia on January 31, 2019 7. Status post open hemorrhoidectomy 01/27/19 Plan: Remains stable, repeat CT noted patient still has splenic abscess that is getting smaller, I recommend to keep on IV antibiotics for at least another 7-10 more days and repeat CT at the end of therapy Consultation Date/Type/Reason Admit Date/Time Feb 20, 2019 at 23:21 Initial Consult Date Type of Consult id Requesting Provider: DANIELA BRUNSON Date/Time of Note DATE: 03/11/19 TIME: 12:41 Exam/Review of Systems Exam Vitals Vital Signs Date Temp Pulse Resp B/P (MAP) Pulse Ox O2 O2 Flow FiO2 Time Delivery Rate 03/11/19 Nasal 2.0 09:54 Cannula 03/11/19 98.4 50 20 117/68 92 08:23 (84) Intake and Output 03/10/19 03/10/19 03/11/19 1515:00 23:00 07:00 IntakeIntake Total 720 ml 352.5 ml OutputOutput Total 10 ml 420 ml BalanceBalance 720 ml 342.5 ml -420 ml Results Result Diagram: 03/11/19 0438 03/11/19 0438 Results 24hrs Laboratory Tests Test 03/10/19 16:57 03/11/19 04:38 Tobramycin Level Trough 0.8 L White Blood Count 6.9 # Red Blood Count 4.37 L Hemoglobin 10.3 L Hematocrit 33.7 L Mean Corpuscular Volume 77.1 L Mean Corpuscular Hemoglobin 23.6 L Mean Corpuscular Hemoglobin Concent 30.6 L Red Cell Distribution Width 21.2 H Platelet Count 480 H Mean Platelet Volume 10.2 Immature Granulocytes % 1.000 H Neutrophils % 83.4 H Lymphocytes % 11.1 L Monocytes % 4.4 Eosinophils % 0.0 Basophils % 0.1 Nucleated Red Blood Cells % 0.0 Immature Granulocytes # 0.070 H Neutrophils # 5.7 Lymphocytes # 0.8 Monocytes # 0.3 Eosinophils # 0.0 Basophils # 0.0 Nucleated Red Blood Cells # 0.0 Sodium Level 138 Potassium Level 4.1 Chloride Level 99 Carbon Dioxide Level 32 H Anion Gap 7 Blood Urea Nitrogen 33 H Creatinine 0.71 Est Glomerular Filtrat Rate mL/min > 60 Glucose Level 173 Calcium Level 8.8 Phosphorus Level 4.0 Magnesium Level 1.8 Medications Medication Current Medications IV Flush (NS 3 ml) 3 ml PER PROTOCOL IV Last administered on 02/25/19at 08:55; Admin Dose 3 ML; Start 02/21/19 at 01:30 Ondansetron HCl (Zofran Inj) 4 mg Q6H PRN IV NAUSEA/VOMITING Last administered on 03/09/19 06:22; Admin Dose 4 MG; Start 02/21/19 at 01:30 Docusate Sodium (Colace) 100 mg Q12H PRN PO .CONSTIPATION Last administered on 02/25/19 08:51; Admin Dose 100 MG; Start 02/21/19 at 01:30 Magnesium Hydroxide (Milk Of Mag) 30 ml DAILY PRN PO .CONSTIPATION; Start at 01:30 Heparin Sodium (Porcine) (Heparin (5000 Units/1ml)) 5,000 unit Q12 SC Last administered on 03/11/19 09:09; Admin Dose 5,000 UNIT; Start 02/21/19 at 09:00 Albuterol/ Ipratropium (Duoneb) 3 ml Q4H RESP THERAPY PRN HHN SHORTNESS OF BREATH; Start 02/21/19 at 01:30 Hydralazine HCl (Apresoline) 10 mg Q6H PRN IV ELEVATED BLOOD PRESSURE; Start 02/21/19 at 01:30 Nitroglycerin (Nitroglycerin (Sl Tab) 0.4 Mg) 1 tab Q5M PRN SL ANGINA; Start 02/21/19 at 01:30 Ferrous Sulfate (Ferrous Sulfate (Ec)) 325 mg DAILY PO Last administered on 03/11/19 09:07; Admin Dose 325 MG; Start 02/21/19 at 09:00 Guaifenesin (Robitussin Liquid Cup) 200 mg Q4H PRN PO COUGH Last administered on 03/04/19 03:52; Admin Dose 200 MG; Start 02/22/19 at 14:30 Polyethylene Glycol (Miralax) 17 gm BID PO Last administered on 03/11/19 09:09; Admin Dose 17 GM; Start 02/24/19 at 21:00 Bisacodyl (Dulcolax) 10 mg DAILY PRN PO CONSTIPATION; Start 02/24/19 at 15:30 Famotidine (Pepcid) 20 mg BID PO Last administered on 03/11/19 09:07; Admin Dose 20 MG; Start 02/26/19 at 21:00 Diphenhydramine HCl (Benadryl) 25 mg Q6H PRN IV allergy Last administered on 03/06/19 18:24; Admin Dose 25 MG; Start 03/03/19 at 10:30 Tobramycin (Tobramycin Iv Per Pharmacy) TOBRAMYCIN PER PHARMACY NOTE XX ; Start 03/03/19 at 16:00 Loratadine (Claritin) 10 mg DAILY PO Last administered on 03/11/19 09:07; Admin Dose 10 MG; Start 03/03/19 at 17:00 Tobramycin 500 mg/ Dextrose 112.5 ml @ 103.75 mls/ hr Q24H IVPB Last administered on 03/10/19 18:09; Admin Dose 103.75 MLS/HR; Start 03/03/19 at 18:00 Hydromorphone HCl (Dilaudid) 1 mg Q2 PRN IV SEVERE PAIN LEVEL 7-10 Last administered on 03/04/19 21:20; Admin Dose 1 MG; Start 03/04/19 at 18:00 Hydromorphone HCl (Dilaudid) 0.5 mg Q4H PRN IV SEVERE PAIN LEVEL 7-10; Start 03/08/19 at 23:30 Methylprednisolone Sodium Succinate (Solu-Medrol) 60 mg BID IV Last administered on 6/27/19at 09:09; Admin Dose 60 MG; Start 03/09/19 at 21:00 JAYRO SANTIAGO NP Mar 11, 2019 12:42
--- NOTE | 2019-03-11 14:46 | PN ---
Date/Time of Note Date/Time of Note DATE: 03/11/19 TIME: 14:45 Assessment/Plan VTE Prophylaxis Risk score (from Ns)>0 risk: 1 SCD applied (from Ns): No SCD contraindicated: other Pharmacological prophylaxis: heparin Lines/Catheters IV [facility]from [facility] portacath Urinary Cath still in place: No Assessment/Plan Hospital Course SUBJECTIVE: Feeling better. 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 OBJECTIVE: Physical Exam General: Obese build 53 year-old male lying in bed in no apparent distress. HEENT: Normocephalic, atraumatic. Eyes: Anicteric sclerae, conjunctivae clear. ENT: Nasal septum midline, oral mucosa moist. Neck supple, no JVD noticed. Respiratory: Bilaterally clear breath sounds. No use of accessory muscles of respiration. No adventitious breath sounds. Cardiovascular: S1, S2 heard. Regular rate and rhythm. Abdomen: Soft and nondistended. LUQ drain with brown colored fluid draining out. Bowel sounds positive in all 4 quadrants. Genitourinary: Deferred. Extremities: No cyanosis, no clubbing, no edema. Peripheral pulses palpable. Neurologic: Cranial nerves II through XII grossly intact. The patient is awake, alert, and oriented. Skin: Normal skin turgor. No skin rashes. Labs & Vitals per chart ASSESSMENT & PLAN 53-year-old male with past medical history of hemorrhoidal bleeding status post recent hemorrhoidectomy, iron deficiency anemia, and recent E. coli ESBL and Citrobacter bacteremia who presented to the emergency room complaining of chest pain or shortness of breath with signs of septic shock on pressor support. 1. Status post septic shock. Status post IV pressors. Culture showing E. coli ESBL bacteremia. Continue antimicrobials as per ID. 2. Splenic abscess. Status post CT-guided percutaneous drainage of splenic fluid collection on 03/05/2019. On 03/10/2019 showing decreasing size of abscess. Fluid culture showing Pantoea agglomerans and Citrobacter koseri. Continue antimicrobials as per ID. 3. Chronic rectal bleeding. Monitor H&H closely. Transfuse blood products as needed. 4. Iron deficiency. Continue iron supplements. 5. Fluids, electrolytes, and nutrition. Regular diet. 6. DVT prophylaxis. SQ heparin. 7. Plan. Continue antimicrobials as per ID. Discharge disposition: Discharge patient home with IV antibiotics after home health was arranged with follow-up as outpatient with surgery for a repeat CT scan before discontinuing the drain. The plan of care was explained to the patient with the help of a certified digital marketing executive. The patient was seen in collaboration with Dr. Pepper. Result Diagram: 03/11/19 0438 03/11/19 0438 Results 24hrs Laboratory Tests Test 03/10/19 16:57 03/11/19 04:38 Tobramycin Level Trough 0.8 L White Blood Count 6.9 # Red Blood Count 4.37 L Hemoglobin 10.3 L Hematocrit 33.7 L Mean Corpuscular Volume 77.1 L Mean Corpuscular Hemoglobin 23.6 L Mean Corpuscular Hemoglobin Concent 30.6 L Red Cell Distribution Width 21.2 H Platelet Count 480 H Mean Platelet Volume 10.2 Immature Granulocytes % 1.000 H Neutrophils % 83.4 H Lymphocytes % 11.1 L Monocytes % 4.4 Eosinophils % 0.0 Basophils % 0.1 Nucleated Red Blood Cells % 0.0 Immature Granulocytes # 0.070 H Neutrophils # 5.7 Lymphocytes # 0.8 Monocytes # 0.3 Eosinophils # 0.0 Basophils # 0.0 Nucleated Red Blood Cells # 0.0 Sodium Level 138 Potassium Level 4.1 Chloride Level 99 Carbon Dioxide Level 32 H Anion Gap 7 Blood Urea Nitrogen 33 H Creatinine 0.71 Est Glomerular Filtrat Rate mL/min > 60 Glucose Level 173 Calcium Level 8.8 Phosphorus Level 4.0 Magnesium Level 1.8 Exam/Review of Systems Exam Vitals Vital Signs Date Temp Pulse Resp B/P (MAP) Pulse Ox O2 O2 Flow FiO2 Time Delivery Rate 03/11/19 Nasal 2.0 09:54 Cannula 03/11/19 98.4 50 20 117/68 92 08:23 (84) Intake and Output 03/10/19 03/10/19 03/11/19 1414:59 22:59 06:59 IntakeIntake Total 720 ml 352.5 ml OutputOutput Total 10 ml 420 ml BalanceBalance 720 ml 342.5 ml -420 ml Results Results 24hrs Laboratory Tests Test 03/10/19 16:57 03/11/19 04:38 Tobramycin Level Trough 0.8 L White Blood Count 6.9 # Red Blood Count 4.37 L Hemoglobin 10.3 L Hematocrit 33.7 L Mean Corpuscular Volume 77.1 L Mean Corpuscular Hemoglobin 23.6 L Mean Corpuscular Hemoglobin Concent 30.6 L Red Cell Distribution Width 21.2 H Platelet Count 480 H Mean Platelet Volume 10.2 Immature Granulocytes % 1.000 H Neutrophils % 83.4 H Lymphocytes % 11.1 L Monocytes % 4.4 Eosinophils % 0.0 Basophils % 0.1 Nucleated Red Blood Cells % 0.0 Immature Granulocytes # 0.070 H Neutrophils # 5.7 Lymphocytes # 0.8 Monocytes # 0.3 Eosinophils # 0.0 Basophils # 0.0 Nucleated Red Blood Cells # 0.0 Sodium Level 138 Potassium Level 4.1 Chloride Level 99 Carbon Dioxide Level 32 H Anion Gap 7 Blood Urea Nitrogen 33 H Creatinine 0.71 Est Glomerular Filtrat Rate mL/min > 60 Glucose Level 173 Calcium Level 8.8 Phosphorus Level 4.0 Magnesium Level 1.8 Medications Medication Current Medications IV Flush (NS 3 ml) 3 ml PER PROTOCOL IV Last administered on 02/25/19 08:55; Admin Dose 3 ML; Start 02/21/19 at 01:30 Ondansetron HCl (Zofran Inj) 4 mg Q6H PRN IV NAUSEA/VOMITING Last administered on 03/09/19 06:22; Admin Dose 4 MG; Start 02/21/19 at 01:30 Docusate Sodium (Colace) 100 mg Q12H PRN PO .CONSTIPATION Last administered on 02/25/19 08:51; Admin Dose 100 MG; Start 02/21/19 at 01:30 Magnesium Hydroxide (Milk Of Mag) 30 ml DAILY PRN PO .CONSTIPATION; Start 02/21/19 at 01:30 Heparin Sodium (Porcine) (Heparin (5000 Units/1ml)) 5,000 unit Q12 SC Last administered on 03/11/19 09:09; Admin Dose 5,000 UNIT; Start 02/21/19 at 09:00 Albuterol/ Ipratropium (Duoneb) 3 ml Q4H RESP THERAPY PRN HHN SHORTNESS OF BREATH; Start 02/21/19 at 01:30 Hydralazine HCl (Apresoline) 10 mg Q6H PRN IV ELEVATED BLOOD PRESSURE; Start 02/21/19 at 01:30 Nitroglycerin (Nitroglycerin (Sl Tab) 0.4 Mg) 1 tab Q5M PRN SL ANGINA; Start 02/21/19 at 01:30 Ferrous Sulfate (Ferrous Sulfate (Ec)) 325 mg DAILY PO Last administered on 03/11/19 09:07; Admin Dose 325 MG; Start 02/21/19 at 09:00 Guaifenesin (Robitussin Liquid Cup) 200 mg Q4H PRN PO COUGH Last administered on 03/04/19 03:52; Admin Dose 200 MG; Start 02/22/19 at 14:30 Polyethylene Glycol (Miralax) 17 gm BID PO Last administered on 03/11/19 09:09; Admin Dose 17 GM; Start 02/24/19 at 21:00 Bisacodyl (Dulcolax) 10 mg DAILY PRN PO CONSTIPATION; Start 02/24/19 at 15:30 Famotidine (Pepcid) 20 mg BID PO Last administered on 03/11/19 09:07; Admin Dose 20 MG; Start 02/26/19 at 21:00 Diphenhydramine HCl (Benadryl) 25 mg Q6H PRN IV allergy Last administered on 03/06/19 18:24; Admin Dose 25 MG; Start 03/03/19 at 10:30 Tobramycin (Tobramycin Iv Per Pharmacy) TOBRAMYCIN PER PHARMACY NOTE XX ; Start 03/03/19 at 16:00 Loratadine (Claritin) 10 mg DAILY PO Last administered on 03/11/19 09:07; Admin Dose 10 MG; Start 03/03/19 at 17:00 Tobramycin 500 mg/ Dextrose 112.5 ml @ 103.75 mls/ hr Q24H IVPB Last administered on 03/10/19 18:09; Admin Dose 103.75 MLS/HR; Start 03/03/19 at 18:00 Hydromorphone HCl (Dilaudid) 1 mg Q2 PRN IV SEVERE PAIN LEVEL 7-10 Last administered on 03/04/19 21:20; Admin Dose 1 MG; Start 03/04/19 at 18:00 Hydromorphone HCl (Dilaudid) 0.5 mg Q4H PRN IV SEVERE PAIN LEVEL 7-10; Start 03/08/19 at 23:30 Methylprednisolone Sodium Succinate (Solu-Medrol) 60 mg BID IV Last administered on 03/11/19 09:09; Admin Dose 60 MG; Start 03/09/19 at 21:00 JIMENA STONE NP Mar 11, 2019 14:46
[2019-03-11 15:00] VITALS: BP 112/61; PULSE 73; RESP 18
[2019-03-11] MEDS: TOBRAMYCIN 500 MG in DEXTROSE 5% 100 ML IVPB SCH (17:51)
[2019-03-11 19:42] VITALS: BP 114/67; PULSE 67; RESP 18
[2019-03-11] MEDS ORDERED: HYDROCODONE/APAP (5/325) TAB PO PRN (22:00)
[2019-03-12 02:29] VITALS: BP 116/68; PULSE 54; RESP 18
[2019-03-12 07:30] VITALS: BP 113/69; PULSE 53; RESP 18
[2019-03-12] MEDS: POLYETHYLENE GLYCOL 17 GM PACKET PO SCH ×2 (09:01→20:49)
[2019-03-12] MEDS: METHYLPREDNISOLONE 125 MG INJ IV SCH ×2 (09:01→20:50)
[2019-03-12] MEDS: FAMOTIDINE 20 MG TAB PO SCH ×2 (09:01→20:48)
[2019-03-12] MEDS: FERROUS SULFATE (EC) 325 MG TAB PO SCH (09:01)
[2019-03-12] MEDS: LORATADINE 10 MG TAB PO SCH (09:01)
[2019-03-12] MEDS: HEPARIN 5,000 UNIT/1 ML VIAL SC SCH ×2 (09:03→20:54)
--- NOTE | 2019-03-12 10:11 | PN ---
Date/Time of Note Date/Time of Note DATE: 03/12/19 TIME: 10:08 Assessment/Plan Lines/Catheters IV Catheter Type (from Nrsg): portacath Bah in Place (from Nrsg): No Assessment/Plan Chief Complaint/Hosp Course 1. Splenic abnormality on CT with possible abscess versus hematoma versus cyst: reviewed ct with radiologist: probable splenic infarct; since now w leukocytosis and fevers reviewed CT again w Radiologist who believes it is abscess > s/p IR drain, cxs noted. Pain significantly improved. CT noted with persistent collection. -abx per ID -pain control> nonnarcotics as able -supportive -continue drain- flush q shift> Length of pigtail drain appears to be longer on the outside, concern for drain displacement will order CT for reevaluation. -Ok for dc from surgical standpoint with drain (once drain is confirmed in correct position) and hh for drain care, abx per ID. To follow w us in 1 week. 2. Bacteremia with ESBL and Cytrobacter, concern for endocarditis> status post KALEY 3. Sepsis secondary to above (blood, spleen, bowel, uti, cardiac valves, recent surgery), resolved 4. Anemia stable 5. BMI 33 -diet/exercise optimization 6. Hives:? Etiology:? Allergic reaction: resolved 7. Abdominal pain secondary to above improving 8. Bradycardia: Improving - monitor Thank you. Patient seen and examined in collaboration with Dr. Yuriy Wu. Subjective 24 Hr Interval Summary Length of pigtail drain appears to be longer on the outside, concern for drain displacement will order CT for reevaluation. Feels well. No acute pain. No fevers, chills, sob, congested cough, cp, palpitations, metz, dizziness, nausea, vomiting, diarrhea, dysuria. Exam/Review of Systems Vital Signs Vitals Vital Signs Date Temp Pulse Resp B/P (MAP) Pulse Ox O2 O2 Flow FiO2 Time Delivery Rate 03/12/19 97.9 53 18 113/69 95 Room Air 07:30 (84) 03/11/19 2.0 09:54 Intake and Output 03/11/19 03/11/19 03/12/19 1515:00 23:00 07:00 IntakeIntake Total 400 ml 1032.5 ml OutputOutput Total 650 ml 10 ml 725 ml BalanceBalance -250 ml 1022.5 ml -725 ml Exam Free Text/Dictation Constitutional: alert, oriented, NAD Psych: Normal mood No confusion Head: normocephalic, atraumatic Eyes: nl conjunctiva, EOMI, PERRL; No icteric ENMT: nl external ears & nose, nl lips & teeth Neck: supple, non-tender; No jvd Respiratory: normal air movement; No labored breathing, No wheezing Cardiovascular: regular rate and rhythm; No edema Gastrointestinal: soft, distended, left abdomen tenderness, drain (length of drain appears longer; minimal drainage around drain) No rebound or guarding Musculoskeletal: No nl gait and stance, No joint tenderness Extremities: normal pulses; No calf tenderness, No edema Neurological: nl mental status, nl speech Skin: nl turgor; hives No diaphoresis Lymph: nl lymph nodes Results Result Diagram: 03/11/19 0438 03/11/19 0438 BRUNO SALDANA NP Mar 12, 2019 10:11
--- NOTE | 2019-03-12 11:01 | PN ---
Date/Time of Note Date/Time of Note DATE: 03/12/19 TIME: 10:59 Assessment/Plan VTE Prophylaxis Risk score (from Ns)>0 risk: 1 SCD applied (from Ns): No SCD contraindicated: other Pharmacological prophylaxis: heparin Lines/Catheters IV Catheter Type (from [facility]): port a cath Urinary Cath still in place: No Assessment/Plan Hospital Course SUBJECTIVE: Complains of new onset pain in the area of the drain. OBJECTIVE: Physical Exam General: Obese build 53 year-old male lying in bed in no apparent distress. HEENT: Normocephalic, atraumatic. Eyes: Anicteric sclerae, conjunctivae clear. ENT: Nasal septum midline, oral mucosa moist. Neck supple, no JVD noticed. Respiratory: Bilaterally clear breath sounds. No use of accessory muscles of respiration. No adventitious breath sounds. Cardiovascular: S1, S2 heard. Regular rate and rhythm. Abdomen: Soft and nondistended. LUQ drain with brown colored fluid draining out. Bowel sounds positive in all 4 quadrants. Genitourinary: Deferred. Extremities: No cyanosis, no clubbing, no edema. Peripheral pulses palpable. Neurologic: Cranial nerves II through XII grossly intact. The patient is awake, alert, and oriented. Skin: Normal skin turgor. No skin rashes. Labs & Vitals per chart ASSESSMENT & PLAN 53-year-old male with past medical history of hemorrhoidal bleeding status post recent hemorrhoidectomy, iron deficiency anemia, and recent E. coli ESBL and Citrobacter bacteremia who presented to the emergency room complaining of chest pain or shortness of breath with signs of septic shock on pressor support. 1. Status post septic shock. Status post IV pressors. Culture showing E. coli ESBL bacteremia. Continue antimicrobials as per ID. 2. Splenic abscess. Status post CT-guided percutaneous drainage of splenic fluid collection on 03/05/2019. On 03/10/2019 showing decreasing size of abscess. Fluid culture showing Pantoea agglomerans and Citrobacter koseri. Continue antimicrobials as per ID. 3. Chronic rectal bleeding. Monitor H&H closely. Transfuse blood products as needed. 4. Iron deficiency. Continue iron supplements. 5. Fluids, electrolytes, and nutrition. Regular diet. 6. DVT prophylaxis. SQ heparin. 7. Plan. Continue antimicrobials as per ID. Repeat CT of the abdomen ordered to confirm appropriate placement of the drain. Discharge disposition: Discharge patient home with IV antibiotics after home health was arranged with follow-up as outpatient with surgery for a repeat CT scan before discontinuing the drain. The patient was seen in collaboration with Dr. Pepper. Result Diagram: 03/11/1943703/11/19437 Exam/Review of Systems Exam Vitals Vital Signs Date Temp Pulse Resp B/P (MAP) Pulse Ox O2 O2 Flow FiO2 Time Delivery Rate 03/12/19 97.9 53 18 113/69 95 Room Air 07:30 (84) 03/11/19 2.0 09:54 Intake and Output 03/11/19 03/11/19 03/12/19 1515:00 23:00 07:00 IntakeIntake Total 400 ml 1032.5 ml OutputOutput Total 650 ml 10 ml 725 ml BalanceBalance -250 ml 1022.5 ml -725 ml Medications Medication Current Medications IV Flush (NS 3 ml) 3 ml PER PROTOCOL IV Last administered on 02/25/19at 08:55; Admin Dose 3 ML; Start 02/21/19 at 01:30 Ondansetron HCl (Zofran Inj) 4 mg Q6H PRN IV NAUSEA/VOMITING Last administered on 03/09/19at 06:22; Admin Dose 4 MG; Start 02/21/19 at 01:30 Docusate Sodium (Colace) 100 mg Q12H PRN PO .CONSTIPATION Last administered on 02/25/19at 08:51; Admin Dose 100 MG; Start 02/21/19 at 01:30 Magnesium Hydroxide (Milk Of Mag) 30 ml DAILY PRN PO .CONSTIPATION; Start 02/21/19 at 01:30 Heparin Sodium (Porcine) (Heparin (5000 Units/1ml)) 5,000 unit Q12 SC Last administered on 03/12/19at 09:03; Admin Dose 5,000 UNIT; Start 02/21/19 at 09:00 Albuterol/ Ipratropium (Duoneb) 3 ml Q4H RESP THERAPY PRN HHN SHORTNESS OF BREATH; Start 02/21/19 at 01:30 Hydralazine HCl (Apresoline) 10 mg Q6H PRN IV ELEVATED BLOOD PRESSURE; Start 02/21/19 at 01:30 Nitroglycerin (Nitroglycerin (Sl Tab) 0.4 Mg) 1 tab Q5M PRN SL ANGINA; Start 02/21/19 at 01:30 Ferrous Sulfate (Ferrous Sulfate (Ec)) 325 mg DAILY PO Last administered on 03/12/19 09:01; Admin Dose 325 MG; Start 02/21/19 at 09:00 Guaifenesin (Robitussin Liquid Cup) 200 mg Q4H PRN PO COUGH Last administered on 03/04/19 03:52; Admin Dose 200 MG; Start 02/22/19 at 14:30 Polyethylene Glycol (Miralax) 17 gm BID PO Last administered on 03/12/19 09:01; Admin Dose 17 GM; Start 02/24/19 at 21:00 Bisacodyl (Dulcolax) 10 mg DAILY PRN PO CONSTIPATION; Start 02/24/19 at 15:30 Famotidine (Pepcid) 20 mg BID PO Last administered on 03/12/19 09:01; Admin Dose 20 MG; Start 02/26/19 at 21:00 Diphenhydramine HCl (Benadryl) 25 mg Q6H PRN IV allergy Last administered on 03/06/19 18:24; Admin Dose 25 MG; Start 03/03/19 at 10:30 Tobramycin (Tobramycin Iv Per Pharmacy) TOBRAMYCIN PER PHARMACY NOTE XX ; Start 03/03/19 at 16:00 Loratadine (Claritin) 10 mg DAILY PO Last administered on 03/12/19 09:01; Admin Dose 10 MG; Start 03/03/19 at 17:00 Tobramycin 500 mg/ Dextrose 112.5 ml @ 103.75 mls/ hr Q24H IVPB Last administered on 03/11/19 17:51; Admin Dose 103.75 MLS/HR; Start 03/03/19 at 1 8:00 Hydromorphone HCl (Dilaudid) 1 mg Q2 PRN IV SEVERE PAIN LEVEL 7-10 Last administered on 03/04/19 21:20; Admin Dose 1 MG; Start 03/04/19 at 18:00 Hydromorphone HCl (Dilaudid) 0.5 mg Q4H PRN IV SEVERE PAIN LEVEL 7-10; Start 03/08/19 at 23:30 Methylprednisolone Sodium Succinate (Solu-Medrol) 60 mg BID IV Last administered on 6/28/19at 09:01; Admin Dose 60 MG; Start 03/09/19 at 21:00 Acetaminophen/ Hydrocodone Bitart ([place] (5/325)) 1 tab Q6H PRN PO MODERATE PAIN LEVEL 4-6 Last administered on 03/11/19at 22:10; Admin Dose 1 TAB; Start 03/11/19 at 22:00 JIMENA STONE NP Mar 12, 2019 11:01
--- NOTE | 2019-03-12 14:32 | CONS ---
Assessment/Plan Assessment/Plan Hospital Course (Demo Recall) Alert, feels good, no fevers overnight Microbiology: Urine culture negative. Blood culture on admission grew E. coli ESBL, repeat blood cultures negative. Fluid culture grew Pantoea, both susc eptible to tobramycin a and Citrobacter Antimicrobials: Tobramycin Allergy: Meropenem, causes rash Indwelling: Right chest Port-A-Cath, left-sided abdominal catheter Physical examination: This is well-nourished ill-appearing middle-aged man who is alert in no distress. Head atraumatic normocephalic neck is supple chest rise symmetrical breath sounds diminished to bases heart: S1-S2 abdomen obese soft bowel sounds present extremities with trace edema Assessment: 1. Sepsis with recurrent bacteremia ===> KALEY negative 2. Splenomegaly with abscess===> s/p CT guided drainage 120 cc 3. B pleural effusion, possible pneumonia 5. Chronic anemia 6. History of E. coli ESBL and Citrobacter bacteremia on January 31, 2019 7. Status post open hemorrhoidectomy 01/27/19 Plan: Remains stable, abscess decreased in size, recommend to keep on current antibiotics until full resolution Consultation Date/Type/Reason Admit Date/Time Feb 20, 2019 at 23:21 Initial Consult Date Type of Consult id Requesting Provider: DANIELA BRUNSON Date/Time of Note DATE: 03/12/19 TIME: 14:31 Exam/Review of Systems Exam Vitals Vital Signs Date Temp Pulse Resp B/P (MAP) Pulse Ox O2 O2 Flow FiO2 Time Delivery Rate 03/12/19 97.9 53 18 113/69 95 Room Air 07:30 (84) 03/11/19 2.0 09:54 Intake and Output 03/11/19 03/11/19 03/12/19 1515:00 23:00 07:00 IntakeIntake Total 400 ml 1032.5 ml OutputOutput Total 650 ml 10 ml 725 ml BalanceBalance -250 ml 1022.5 ml -725 ml Results Result Diagram: 03/11/19 0438 03/11/19 0438 Medications Medication Current Medications IV Flush (NS 3 ml) 3 ml PER PROTOCOL IV Last administered on 02/25/19at 08:55; Admin Dose 3 ML; Start 02/21/19 at 01:30 Ondansetron HCl (Zofran Inj) 4 mg Q6H PRN IV NAUSEA/VOMITING Last administered on 03/09/19 06:22; Admin Dose 4 MG; Start 02/21/19 at 01:30 Docusate Sodium (Colace) 100 mg Q12H PRN PO .CONSTIPATION Last administered on 02/25/19 08:51; Admin Dose 100 MG; Start 02/21/19 at 01:30 Magnesium Hydroxide (Milk Of Mag) 30 ml DAILY PRN PO .CONSTIPATION; Start 02/21/19 at 01:30 Heparin Sodium (Porcine) (Heparin (5000 Units/1ml)) 5,000 unit Q12 SC Last administered on 03/12/19 09:03; Admin Dose 5,000 UNIT; Start 02/21/19 at 09:00 Albuterol/ Ipratropium (Duoneb) 3 ml Q4H RESP THERAPY PRN HHN SHORTNESS OF BREATH; Start 02/21/19 at 01:30 Hydralazine HCl (Apresoline) 10 mg Q6H PRN IV ELEVATED BLOOD PRESSURE; Start 02/21/19 at 01:30 Nitroglycerin (Nitroglycerin (Sl Tab) 0.4 Mg) 1 tab Q5M PRN SL ANGINA; Start 02/21/19 at 01:30 Ferrous Sulfate (Ferrous Sulfate (Ec)) 325 mg DAILY PO Last administered on 03/12/19 09:01; Admin Dose 325 MG; Start 02/21/19 at 09:00 Guaifenesin (Robitussin Liquid Cup) 200 mg Q4H PRN PO COUGH Last administered on 03/04/19 03:52; Admin Dose 200 MG; Start 02/22/19 at 14:30 Polyethylene Glycol (Miralax) 17 gm BID PO Last administered on 03/12/19 09:01; Admin Dose 17 GM; Start 02/24/19 at 21:00 Bisacodyl (Dulcolax) 10 mg DAILY PRN PO CONSTIPATION; Start 02/24/19 at 15:30 Famotidine (Pepcid) 20 mg BID PO Last administered on 03/12/19 09:01; Admin Dose 20 MG; Start 02/26/19 at 21:00 Diphenhydramine HCl (Benadryl) 25 mg Q6H PRN IV allergy Last administered on 03/06/19 18:24; Admin Dose 25 MG; Start 03/03/19 at 10:30 Tobramycin (Tobramycin Iv Per Pharmacy) TOBRAMYCIN PER PHARMACY NOTE XX ; Start 03/03/19 at 16:00 Loratadine (Claritin) 10 mg DAILY PO Last administered on 03/12/19 09:01; Admin Dose 10 MG; Start 03/03/19 at 17:00 Tobramycin 500 mg/ Dextrose 112.5 ml @ 103.75 mls/ hr Q24H IVPB Last administered on 03/11/19at 17:51; Admin Dose 103.75 MLS/HR; Start 03/03/19 at 18:00 Hydromorphone HCl (Dilaudid) 1 mg Q2 PRN IV SEVERE PAIN LEVEL 7-10 Last administered on 03/04/19at 21:20; Admin Dose 1 MG; Start 03/04/19 at 18:00 Hydromorphone HCl (Dilaudid) 0.5 mg Q4H PRN IV SEVERE PAIN LEVEL 7-10; Start 03/08/19 at 23:30 Methylprednisolone Sodium Succinate (Solu-Medrol) 60 mg BID IV Last administered on 03/12/19 09:01; Admin Dose 60 MG; Start 03/09/19 at 21:00 Acetaminophen/ Hydrocodone Bitart ([place] (5/325)) 1 tab Q6H PRN PO MODERATE PAIN LEVEL 4-6 Last administered on 03/11/19at 22:10; Admin Dose 1 TAB; Start 03/11/19 at 22:00 JAYRO SANTIAGO NP Mar 12, 2019 14:32
[2019-03-12 14:45] VITALS: BP 116/64; PULSE 65; RESP 22
[2019-03-12] MEDS: TOBRAMYCIN 500 MG in DEXTROSE 5% 100 ML IVPB SCH (17:41)
[2019-03-12 19:12] VITALS: BP 119/80; PULSE 60; RESP 18
[2019-03-13 01:43] VITALS: BP 111/60; PULSE 58; RESP 18
[2019-03-13 07:28] VITALS: BP 116/69; PULSE 56; RESP 17
[2019-03-13] MEDS: METHYLPREDNISOLONE 125 MG INJ IV SCH ×2 (08:19→21:10)
[2019-03-13] MEDS: POLYETHYLENE GLYCOL 17 GM PACKET PO SCH ×2 (08:19→21:10)
[2019-03-13] MEDS: FERROUS SULFATE (EC) 325 MG TAB PO SCH (08:19)
[2019-03-13] MEDS: FAMOTIDINE 20 MG TAB PO SCH ×2 (08:19→21:10)
[2019-03-13] MEDS: LORATADINE 10 MG TAB PO SCH (08:19)
[2019-03-13] MEDS: HEPARIN 5,000 UNIT/1 ML VIAL SC SCH ×2 (08:20→21:13)
--- NOTE | 2019-03-13 13:35 | CONS ---
Assessment/Plan Assessment/Plan Hospital Course (Demo Recall) Alert feels good concerned that there is no fluid drainage since yesterday from the left abdominal pigtail, no fevers overnight. CT of the abdomen repeated yesterday confirmed pigtail placement Microbiology: Urine culture negative. Blood culture on admission grew E. coli ESBL, repeat blood cultures negative. Fluid culture grew Pantoea, both susceptible to tobramycin a and Citrobacter Antimicrobials: Tobramycin Allergy: Meropenem, causes rash Indwelling: Right chest Port-A-Cath, left-sided abdominal catheter Physical examination: This is well-nourished ill-appearing middle-aged man who is alert in no distress. Head atraumatic normocephalic neck is supple chest rise symmetrical breath sounds diminished to bases heart: S1-S2 abdomen obese soft bowel sounds present extremities with trace edema Assessment: 1. Sepsis with recurrent bacteremia ===> KALEY negative 2. Splenomegaly with abscess===> s/p CT guided drainage 120 cc 3. B pleural effusion, possible pneumonia 5. Chronic anemia 6. History of E. coli ESBL and Citrobacter bacteremia on January 31, 2019 7. Status post open hemorrhoidectomy 01/27/19 Plan: Remains stable, continue antibiotics we will ask surgery to reevaluate Consultation Date/Type/Reason Admit Date/Time Feb 20, 2019 at 23:21 Initial Consult Date Type of Consult id Requesting Provider: DANIELA BRUNSON Date/Time of Note DATE: 03/13/19 TIME: 13:34 Exam/Review of Systems Exam Vitals Vital Signs Date Temp Pulse Resp B/P (MAP) Pulse Ox O2 O2 Flow FiO2 Time Delivery Rate 03/13/19 98.0 56 17 116/69 93 07:28 (85) 03/12/19 Room Air 14:45 03/11/19 2.0 09:54 Intake and Output 03/12/19 03/12/19 03/13/19 1515:00 23:00 07:00 IntakeIntake Total 1040 ml 352.5 ml OutputOutput Total 10 ml 0 ml 502 ml BalanceBalance 1030 ml 352.5 ml -502 ml Results Result Diagram: 03/11/19 0438 03/13/19 0429 Results 24hrs Laboratory Tests Test 03/13/19 04:29 Blood Urea Nitrogen 28 H Creatinine 0.75 Medications Medication Current Medications IV Flush (NS 3 ml) 3 ml PER PROTOCOL IV Last administered on 02/25/19 08:55; Admin Dose 3 ML; Start 02/21/19 at 01:30 Ondansetron HCl (Zofran Inj) 4 mg Q6H PRN IV NAUSEA/VOMITING Last administered on 03/09/19 06:22; Admin Dose 4 MG; Start 02/21/19 at 01:30 Docusate Sodium (Colace) 100 mg Q12H PRN PO .CONSTIPATION Last administered on 02/25/19 08:51; Admin Dose 100 MG; Start 02/21/19 at 01:30 Magnesium Hydroxide (Milk Of Mag) 30 ml DAILY PRN PO .CONSTIPATION; Start 02/21/19 at 01:30 Heparin Sodium (Porcine) (Heparin (5000 Units/1ml)) 5,000 unit Q12 SC Last administered on 03/13/19 08:20; Admin Dose 5,000 UNIT; Start 02/21/19 at 09:00 Albuterol/ Ipratropium (Duoneb) 3 ml Q4H RESP THERAPY PRN HHN SHORTNESS OF BREATH; Start 02/21/19 at 01:30 Hydralazine HCl (Apresoline) 10 mg Q6H PRN IV ELEVATED BLOOD PRESSURE; Start 02/21/19 at 01:30 Nitroglycerin (Nitroglycerin (Sl Tab) 0.4 Mg) 1 tab Q5M PRN SL ANGINA; Start 02/21/19 at 01:30 Ferrous Sulfate (Ferrous Sulfate (Ec)) 325 mg DAILY PO Last administered on 03/13/19 08:19; Admin Dose 325 MG; Start 02/21/19 at 09:00 Guaifenesin (Robitussin Liquid Cup) 200 mg Q4H PRN PO COUGH Last administered on 03/04/19 03:52; Admin Dose 200 MG; Start 02/22/19 at 14:30 Polyethylene Glycol (Miralax) 17 gm BID PO Last administered on 03/13/19 08:19; Admin Dose 17 GM; Start 02/24/19 at 21:00 Bisacodyl (Dulcolax) 10 mg DAILY PRN PO CONSTIPATION; Start 02/24/19 at 15:30 Famotidine (Pepcid) 20 mg BID PO Last administered on 03/13/19 08:19; Admin Dose 20 MG; Start 02/26/19 at 21:00 Diphenhydramine HCl (Benadryl) 25 mg Q6H PRN IV allergy Last administered on 03/06/19 18:24; Admin Dose 25 MG; Start 03/03/19 at 10:30 Tobramycin (Tobramycin Iv Per Pharmacy) TOBRAMYCIN PER PHARMACY NOTE XX ; Start 03/03/19 at 16:00 Loratadine (Claritin) 10 mg DAILY PO Last administered on 03/13/19 08:19; Admin Dose 10 MG; Start 03/03/19 at 17:00 Tobramycin 500 mg/ Dextrose 112.5 ml @ 103.75 mls/ hr Q24H IVPB Last administered on 03/12/19at 17:41; Admin Dose 103.75 MLS/HR; Start 03/03/19 at 18:00 Hydromorphone HCl (Dilaudid) 1 mg Q2 PRN IV SEVERE PAIN LEVEL 7-10 Last administered on 03/04/19at 21:20; Admin Dose 1 MG; Start 03/04/19 at 18:00 Hydromorphone HCl (Dilaudid) 0.5 mg Q4H PRN IV SEVERE PAIN LEVEL 7-10; Start 03/08/19 at 23:30 Methylprednisolone Sodium Succinate (Solu-Medrol) 60 mg BID IV Last administered on 03/13/19 08:19; Admin Dose 60 MG; Start 03/09/19 at 21:00 Acetaminophen/ Hydrocodone Bitart ([place] (5/325)) 1 tab Q6H PRN PO MODERATE PAIN LEVEL 4-6 Last administered on 03/11/19at 22:10; Admin Dose 1 TAB; Start 03/11/19 at 22:00 JAYRO SANTIAGO NP Mar 13, 2019 13:34
--- NOTE | 2019-03-13 14:05 | PN ---
Date/Time of Note Date/Time of Note DATE: 03/13/19 TIME: 14:04 Assessment/Plan VTE Prophylaxis Risk score (from Ns)>0 risk: 3 SCD applied (from Ns): No SCD contraindicated: other Pharmacological prophylaxis: heparin Lines/Catheters IV [facility] PORTACATH Urinary Cath still in place: No Assessment/Plan Hospital Course SUBJECTIVE: Pain well controlled. Drain output minimal. OBJECTIVE: Physical Exam General: Obese build 53 year-old male lying in bed in no apparent distress. HEENT: Normocephalic, atraumatic. Eyes: Anicteric sclerae, conjunctivae clear. ENT: Nasal septum midline, oral mucosa moist. Neck supple, no JVD noticed. Respiratory: Bilaterally clear breath sounds. No use of accessory muscles of respiration. No adventitious breath sounds. Cardiovascular: S1, S2 heard. Regular rate and rhythm. Abdomen: Soft and nondistended. LUQ drain with brown colored fluid draining out. Bowel sounds positive in all 4 quadrants. Genitourinary: Deferred. Extremities: No cyanosis, no clubbing, no edema. Peripheral pulses palpable. Neurologic: Cranial nerves II through XII grossly intact. The patient is awake, alert, and oriented. Skin: Normal skin turgor. No skin rashes. Labs & Vitals per chart ASSESSMENT & PLAN 53-year-old male with past medical history of hemorrhoidal bleeding status post recent hemorrhoidectomy, iron deficiency anemia, and recent E. coli ESBL and Citrobacter bacteremia who presented to the emergency room complaining of chest pain or shortness of breath with signs of septic shock on pressor support. 1. Status post septic shock. Status post IV pressors. Culture showing E. coli ESBL bacteremia. Continue antimicrobials as per ID. 2. Splenic abscess. Status post CT-guided percutaneous drainage of splenic fluid collection on 03/05/2019. On 03/10/2019 showing decreasing size of abscess. Fluid culture showing Pantoea agglomerans and Citrobacter koseri. Continue antimicrobials as per ID. 3. Chronic rectal bleeding. Monitor H&H closely. Transfuse blood products as needed. 4. Iron deficiency. Continue iron supplements. 5. Fluids, electrolytes, and nutrition. Regular diet. 6. DVT prophylaxis. SQ heparin. 7. Plan. Continue antimicrobials as per ID. Discharge disposition: Discharge patient home with IV antibiotics after home health was arranged with follow-up as outpatient with surgery for a repeat CT scan before discontinuing the drain. The patient was seen in collaboration with Dr. Pepper. Result Diagram: 03/11/19 0438 03/13/19 0429 Results 24hrs Laboratory Tests Test 03/13/19 04:29 Blood Urea Nitrogen 28 H Creatinine 0.75 Exam/Review of Systems Exam Vitals Vital Signs Date Temp Pulse Resp B/P (MAP) Pulse Ox O2 O2 Flow FiO2 Time Delivery Rate 03/13/19 98.0 56 17 116/69 93 07:28 (85) 03/12/19 Room Air 14:45 03/11/19 2.0 09:54 Intake and Output 03/12/19 03/12/19 03/13/19 1515:00 23:00 07:00 IntakeIntake Total 1040 ml 352.5 ml OutputOutput Total 10 ml 0 ml 502 ml BalanceBalance 1030 ml 352.5 ml -502 ml Results Results 24hrs Laboratory Tests Test 03/13/19 04:29 Blood Urea Nitrogen 28 H Creatinine 0.75 Medications Medication Current Medications IV Flush (NS 3 ml) 3 ml PER PROTOCOL IV Last administered on 02/25/19 08:55; Admin Dose 3 ML; Start 02/21/19 at 01:30 Ondansetron HCl (Zofran Inj) 4 mg Q6H PRN IV NAUSEA/VOMITING Last administered on 03/09/19 06:22; Admin Dose 4 MG; Start 02/21/19 at 01:30 Docusate Sodium (Colace) 100 mg Q12H PRN PO .CONSTIPATION Last administered on 02/25/19 08:51; Admin Dose 100 MG; Start 02/21/19 at 01:30 Magnesium Hydroxide (Milk Of Mag) 30 ml DAILY PRN PO .CONSTIPATION; Start 02/21/19 at 01:30 Heparin Sodium (Porcine) (Heparin (5000 Units/1ml)) 5,000 unit Q12 SC Last administered on 03/13/19at 08:20; Admin Dose 5,000 UNIT; Start 02/21/19 at 09:00 Albuterol/ Ipratropium (Duoneb) 3 ml Q4H RESP THERAPY PRN HHN SHORTNESS OF BREATH; Start 02/21/19 at 01:30 Hydralazine HCl (Apresoline) 10 mg Q6H PRN IV ELEVATED BLOOD PRESSURE; Start 02/21/19 at 01:30 Nitroglycerin (Nitroglycerin (Sl Tab) 0.4 Mg) 1 tab Q5M PRN SL ANGINA; Start 02/21/19 at 01:30 Ferrous Sulfate (Ferrous Sulfate (Ec)) 325 mg DAILY PO Last administered on 03/13/19 08:19; Admin Dose 325 MG; Start 02/21/19 at 09:00 Guaifenesin (Robitussin Liquid Cup) 200 mg Q4H PRN PO COUGH Last administered on 03/04/19at 03:52; Admin Dose 200 MG; Start 02/22/19 at 14:30 Polyethylene Glycol (Miralax) 17 gm BID PO Last administered on 03/13/19 08: 19; Admin Dose 17 GM; Start 02/24/19 at 21:00 Bisacodyl (Dulcolax) 10 mg DAILY PRN PO CONSTIPATION; Start 02/24/19 at 15:30 Famotidine (Pepcid) 20 mg BID PO Last administered on 03/13/19 08:19; Admin Dose 20 MG; Start 02/26/19 at 21:00 Diphenhydramine HCl (Benadryl) 25 mg Q6H PRN IV allergy Last administered on 03/06/19 18:24; Admin Dose 25 MG; Start 03/03/19 at 10:30 Tobramycin (Tobramycin Iv Per Pharmacy) TOBRAMYCIN PER PHARMACY NOTE XX ; Start 03/03/19 at 16:00 Loratadine (Claritin) 10 mg DAILY PO Last administered on 03/13/19at 08:19; Admin Dose 10 MG; Start 03/03/19 at 17:00 Tobramycin 500 mg/ Dextrose 112.5 ml @ 103.75 mls/ hr Q24H IVPB Last administered on 03/12/19at 17:41; Admin Dose 103.75 MLS/HR; Start 03/03/19 at 18:00 Hydromorphone HCl (Dilaudid) 1 mg Q2 PRN IV SEVERE PAIN LEVEL 7-10 Last administered on 03/04/19at 21:20; Admin Dose 1 MG; Start 03/04/19 at 18:00 Hydromorphone HCl (Dilaudid) 0.5 mg Q4H PRN IV SEVERE PAIN LEVEL 7-10; Start 03/08/19 at 23:30 Methylprednisolone Sodium Succinate (Solu-Medrol) 60 mg BID IV Last administered on 03/13/19at 08:19; Admin Dose 60 MG; Start 03/09/19 at 21:00 Acetaminophen/ Hydrocodone Bitart ([place] (5/325)) 1 tab Q6H PRN PO MODERATE PAIN LEVEL 4-6 Last administered on 03/11/19at 22:10; Admin Dose 1 TAB; Start 03/11/19 at 22:00 JIMENA STONE NP Mar 13, 2019 14:05
[2019-03-13 14:32] VITALS: BP 125/67; PULSE 69; RESP 19
[2019-03-13] MEDS: TOBRAMYCIN 500 MG in DEXTROSE 5% 100 ML IVPB SCH (17:41)
--- NOTE | 2019-03-13 18:47 | PN ---
Date/Time of Note Date/Time of Note DATE: 03/13/19 TIME: 18:44 Assessment/Plan Lines/Catheters IV Catheter Type (from Nrs): PORTACATH Bah in Place (from Nrs): No Assessment/Plan Chief Complaint/Hosp Course 1. Splenic abnormality on CT with possible abscess versus hematoma versus cyst: reviewed ct with radiologist: probable splenic infarct; since now w leukocytosis and fevers reviewed CT again w Radiologist who believes it is abscess > s/p IR drain, cxs noted. Pain significantly improved. CT noted with persistent collection. repeat ct noted still in abscess -abx per ID -pain control> nonnarcotics -supportive -continue drain- flush q shift -Ok for dc from surgical standpoint with drain and hh for drain care, abx per ID. To follow w us in 1 week. 2. Bacteremia with ESBL and Cytrobacter, concern for endocarditis> status post KALEY 3. Sepsis secondary to above (blood, spleen, bowel, uti, cardiac valves, recent surgery), resolved 4. Anemia stable 5. BMI 33 -diet/exercise optimization 6. Abdominal pain secondary to above: resolved 8. Bradycardia: Improving - monitor Thank you. Patient seen and examined in collaboration with Dr. Yuriy Wu. Subjective 24 Hr Interval Summary Feels much better. No abdominal pain. Repeat ct noted w drain still in place. No fevers, chills, sob, congested cough, cp, palpitations, metz, dizziness, n/v/d/dysuria. Exam/Review of Systems Vital Signs Vitals Vital Signs Date Temp Pulse Resp B/P (MAP) Pulse Ox O2 O2 Flow FiO2 Time Delivery Rate 03/13/19 97.3 69 19 125/67 97 Room Air 14:32 (86) 03/11/19 2.0 09:54 Intake and Output 03/12/19 03/12/19 03/13/19 1414:59 22:59 06:59 IntakeIntake Total 1040 ml 352.5 ml OutputOutput Total 10 ml 0 ml 502 ml BalanceBalance 1030 ml 352.5 ml -502 ml Exam Free Text/Dictation Constitutional: alert, oriented, NAD Psych: Normal mood No confusion Head: normocephalic, atraumatic Eyes: nl conjunctiva, EOMI, PERRL; No icteric ENMT: nl external ears & nose, nl lips & teeth Neck: supple, non-tender; No jvd Respiratory: normal air movement; No labored breathing, No wheezing Cardiovascular: regular rate and rhythm; No edema Gastrointestinal: soft, distended, left abdomen tenderness, drain (minimal drainage around drain) No rebound or guarding Musculoskeletal: No nl gait and stance, No joint tenderness Extremities: normal pulses; No calf tenderness, No edema Neurological: nl mental status, nl speech Skin: nl turgor; hives No diaphoresis Lymph: nl lymph nodes Results Result Diagram: 03/11/19 0438 03/13/19 0429 BRUNO SALDANA NP Mar 13, 2019 18:47
[2019-03-13 19:38] VITALS: BP 112/72; PULSE 74; RESP 18
[2019-03-14 02:37] VITALS: BP 104/64; PULSE 52; RESP 18
[2019-03-14 07:39] VITALS: BP 118/69; PULSE 45
[2019-03-14] MEDS: FERROUS SULFATE (EC) 325 MG TAB PO SCH (08:12)
[2019-03-14] MEDS: FAMOTIDINE 20 MG TAB PO SCH (08:12)
[2019-03-14] MEDS: LORATADINE 10 MG TAB PO SCH (08:12)
[2019-03-14] MEDS: POLYETHYLENE GLYCOL 17 GM PACKET PO SCH (08:13)
[2019-03-14] MEDS: METHYLPREDNISOLONE 125 MG INJ IV SCH (08:13)
[2019-03-14] MEDS: HEPARIN 5,000 UNIT/1 ML VIAL SC SCH (08:16)
[2019-03-14] MEDS ORDERED: SENN-36 PO (09:16)
[2019-03-14] MEDS ORDERED: FER325 PO (09:16)
[2019-03-14] MEDS ORDERED: MED4DP PO (09:16)
[2019-03-14] MEDS ORDERED: FAMO20TA18 PO (09:16)
[2019-03-14] MEDS ORDERED: TOBRAMYCIN XX (09:19)
[2019-03-14] MEDS ORDERED: TRAM50TA PO (09:20)
--- NOTE | 2019-03-14 09:27 | PDOCDIS ---
Discharge Instructions CONDITION [id number] Patient Condition: Cgyju0e Stable HOME CARE INSTRUCTIONS: Asaly4De Diet Instructions: [id number] Regular FOLLOW UP/APPOINTMENTS Follow-up Plan Yuriy Wu MD Specialty: General Surgery Office Address [address] [facility] [address] [place] [address] Office OTHER ORDERS: Other Orders: 1. Take a regular diet as tolerated. 2. Complete the course of antibiotics provided by home health agency. 3. Resume activities as tolerated. Rest in between activities. Protect the drain from getting wet. 4. Follow-up with outpatient surgery (Dr. Wu) in 1 week for decision on drain removal after obtaining a CT scan (please follow-up with your insurance company regarding scheduling CT scan). If unable to follow-up with with outpatient surgery, please go to [facility] emergency room. 5. Please go to the nearest emergency room if you have persistent fevers, chills, significant abdominal pain despite taking pain medications, suspected d islodgment of the drain, or any other unusual signs/symptoms. JIMENA STONE NP Mar 14, 2019 09:27
--- NOTE | 2019-03-14 11:00 | DS ---
Date/Time of Note Date/Time of Note DATE: 03/14/19 TIME: 10:58 Discharge Summary Admission/Discharge Info Admit Date/Time Feb 20, 2019 at 23:21 Discharge Date/Time Discharge Diagnosis 1. Status post septic shock with underlying E. coli ESBL bacteremia. 2. Splenic abscess. Status post CT-guided percutaneous drainage of splenic fluid collection on 03/05/2019. 3. Microcytic, hypochromic anemia. 4. Iron deficiency. 5. Left pleural effusion. 6. Obesity. BMI 32 kg/m. Patient Condition: Stable Consults 1. Eber Urban MD, Infectious Diseases. 2. Yuriy Wu MD, General Surgery. 3. Maddie Tang MD, Cardiology. 4. Calin Arguello MD, Pain management Procedures [place] [address] Radiology Main Line: [phone] DIAGNOSTIC IMAGING REPORT Patient: CANDI JENKINS : 1965 Age: 53 Sex: M MR #: [id number] DOS: 03/05/19 0000 Ordering MD: BRUNO SALDANA NP Location: [facility] Room/Bed: [facility] PROCEDURE: CT guided splenic fluid collection drainage procedure; moderate sedation CLINICAL INDICATION: Splenic fluid collection TECHNIQUE: Informed written consent was obtained. A time-out was performed. A preliminary underground drill operator CT scan of the abdomen was performed. Markers were placed on the skin for localization. The overlying skin of the lateral left abdomen was prepped and draped in the usual sterile fashion. Approximately 10 cc of lidocaine was injected locally for pain control. A 5-Spanish Yueh catheter was introduced into the splenic fluid collection. A wire was placed through the catheter, the tract was dilated, and a 8.5 Spanish locking pigtail catheter was placed into the fluid collection without difficulty. Approximately 120 cc of thick dark red material was aspirated without difficulty and sent to the laboratory for further analysis. The patient tolerated procedure well. No complications occurred. Postprocedural CT scan revealed no complications. No significant hemorrhage or other abnormality was seen. DICOM images are available. 100 mcg fentanyl IV was used for moderate sedation monitored under my direction. Total intraservice time of sedation was 120 minutes. The patient's vital signs were monitored throughout the procedure and recorded the patient's medical record by the nurse. One or more of the following dose reduction techniques were used: automated exposure control, adjustment of the mA and/or kV according to patient size, use of iterative reconstruction technique. DICOM images are available. The CT scanner used is unable to provide CT dose information. COMPARISON: CT, 03/01/2019 FINDINGS: Successful percutaneous drainage of a splenic fluid collection. Approximately 120 cc of thick dark red material was aspirated and sent to the laboratory for further analysis. IMPRESSION: Successful CT guided splenic fluid collection drainage procedure. No complications occurred. RPTAT: QQ .Jovi Otero MD, MD Date Time CARDIOLOGY REPORT DATE OF PROCEDURE: 03/03/2019 TYPE OF PROCEDURE: 1. Transesophageal echo. 2. MAC anesthesia under direction of anesthesiologist, Dr. Harris at the bedside. INDICATION: Bacteremia, assess for intracardiac source of infection. REFERRING PHYSICIAN: Maddie Hoyos MD ATTENDING PHYSICIAN: Maddie Tang MD TYPE OF ANESTHESIA: MAC under direction of Dr. Harris at bedside. BRIEF HISTORY: Mr. iDnesh Ray is a 53-year-old male with a history of recent hemorrhoidectomy with subsequent splenic lesion and then subsequent bacteremia who had been treated and returned with ongoing bacteremia and transthoracic echo without findings and therefore was referred for transesophageal echo to further assess possibility of intracardiac source of infection or endocarditis. DESCRIPTION OF PROCEDURE: After informed consent was obtained, the patient was brought to the intensive care unit where he was placed to continuous telemetry monitoring, O2 saturation monitoring, and blood pressure cuff cycling every 3 minutes. The patient had a bite block placed in his mouth and was given MAC anesthesia with propofol under direction of Dr. Harris at the bedside, so he achieves adequate level of anesthesia. At this time, the patient's esophagus was intubated with the transesophageal probe and using multiplanar imaging and color flow Doppler interrogation, the patient's cardiac structures were adequately interrogated. The probe was removed. The patient was allowed to awake from his anesthetized state, completing procedure. There were no noted complications. FINDINGS: 1. No definite findings of left atrial appendage thrombus or spontaneous contrast. Left atrial appendage velocity of approximately 50 cm per second. 2. No definite findings of patent foramen ovale or other interatrial septal defect by color flow Doppler interrogation of septum only. The patient does have a hypermobile interatrial septum. 3. Normal-appearing aortic valve apparatus. No aortic regurgitation. No vegetations associated with this valve apparatus. 4. Normal-appearing mitral valve apparatus. No definite vegetations associated with this valve apparatus. Trace mitral regurgitation. 5. Pulmonic apparatus somewhat poorly visualized. No definite vegetations found associated with this valve apparatus. 6. Elongated redundant-appearing tricuspid valve leaflets with no definite valvular vegetations noted associated with valve apparatus and trace tricuspid regurgitation. 7. Very minimal atherosclerotic plaquing of the patient's descending, ascending, and transverse aorta. IMPRESSION: No definite findings of intracardiac source of infection or endocarditis by this transesophageal study. RECOMMENDATIONS: 1. At this time, would continue to assess for alternative source of infection. 2. We will continue to treat the patient with antibiotic therapy and follow up all culture data. Hx of Present Illness This is a 53-year-old male with past medical history of hemorrhoidal bleeding status post recent hemorrhoidectomy, iron deficiency anemia, and recent E. coli ESBL and Citrobacter bacteremia who presented to the emergency room complaining of chest pain or shortness of breath with signs of septic shock on pressor support. Hospital Course The patient had evidence of underlying septic shock. The patient was started on empiric antimicrobial therapy. The patient was admitted to intensive care unit. Etiology of the patient's underlying sepsis was because of underlying E. coli ESBL bacteremia. The patient was maintained on antimicrobials as per ID. The patient was weaned off pressors and the patient was transferred out of the intensive care unit once he was hemodynamically stable. Meanwhile, CT scan of the abdomen and pelvis that was done on 02/20/2018 showed multiple low-attenuation splenic lesions which may be infectious/inflammatory in etiology such as abscess. The patient continued to have left-sided rib cage pain as well as difficulty in taking deep breaths. The patient underwent a repeat CT scan of the abdomen and pelvis on 03/01/2019 that was showing increased splenomegaly and a large lobulated cystic lesion measuring 12.8 x 11.5 x 6.8 with two other smaller cystic lesions. Therefore, a general surgery consult was obtained on 03/01/2019 who recommended IR guided percutaneous drainage of the splenic abscess. The patient had a IR guided drainage of the splenic abscess done on 03/05/2019 with drainage of fluid culture positive for Pantonea agglomerans and Citrobacter koseri. The patient was maintained on antimicrobials as per ID. Meanwhile, the patient underwent a transthoracic echocardiogram to evaluate for any underlying cardiac vegetation that was negative. The patient underwent a transesophageal echocardiogram on 03/03/2019 for further evaluation of any intracardiac source of infection and this was negative for any intracardiac source of infection. The patient had significant pain following IR guided drainage of the splenic abscess that necessitated the patient to be placed on a Dilaudid FUR REPAIRER for a few days. Pain management team was following the patient. The patient has underlying left-sided pleural effusion evident on imaging studies. The patient was maintained on supplemental oxygen as needed. The patient did not have any evidence of any significant respiratory compromise. The patient's left-sided pleural effusion could be most probably contributed by the splenic abscess. The patient's chronic problems include chronic anemia and the patient has a Port-A-Cath in place and follows up with outpatient hematology. The patient was provided with iron supplements since the patient had evidence of underlying iron deficiency. The patient did not require any blood transfusion during this hospitalization. Patient also has a history of intermittent chronic rectal bleeding. The patient remained stable throughout hospital course. Repeat imaging studies of the splenic abscess showed decrease in size, however still has significant amount of fluid. Therefore, a clinical decision was made to discharge this patient with the drain in place, [facility] getting [facility] CT [facility]. Home health was arranged for dressing changes and care of the surgical drain and also for IV antibiotic therapy for the recommended period of time as per infectious diseases. Case management order was also put in for arranging outpatient CT scan of the abdomen and pelvis with IV and oral contrast to be done before he sees Dr. Wu as outpatient. The patient had a complicated and prolonged hospital course because of the complexity of the patient's clinical condition, and necessity for multiple procedures to be done, and the slow improvement in the patient's clinical condition. Discharge Instructions 1. Take a regular diet as tolerated. 2. Complete the course of antibiotics provided by home health agency. 3. Resume activities as tolerated. Rest in between activities. Protect the drain from getting wet. 4. Follow-up with outpatient surgery (Dr. Wu) in 1 week for decision on drain removal after obtaining a CT scan (please follow-up with your insurance company regarding scheduling CT scan). If unable to follow-up with with outpatient surgery, please go to [facility] emergency room. 5. Please go to the nearest emergency room if you have persistent fevers, chills, significant abdominal pain despite taking pain medications, suspected dislodgment of the drain, or any other unusual signs/symptoms. The patient verbalized understanding of his discharge instructions. At this time I would like to thank all the consultants for seeing the patient, doing the necessary procedures, and providing clinical recommendations. The patient was seen in collaboration with Dr. Hoyos. Home Meds Active Scripts Ciprofloxacin Hcl* (Ciprofloxacin Hcl*) 250 Mg Tablet, 250 MG PO BID for 4 Days, #8 TAB Prov:JOSE R MARIE 02/03/19 Hydrocodone Bit-Acetaminophen (Hydrocodone Bit-APAP) 5-325MG Tablet, 1 TAB PO Q6H PRN for PAIN LEVEL 6-10, #30 TAB Prov:JOSE R MARIE 02/03/19 Pantoprazole* (Protonix*) 40 Mg Tablet., 40 MG PO DAILY for 30 Days, #30 TAB 2 Refills Prov:ALYCE DECKER 01/08/19 Reported Medications Ferrous Sulfate* (Ferrous Sulfate*) 325 Mg Tabec, 325 MG PO DAILY, TAB 01/25/19 Follow-up Plan Yuriy Wu MD Specialty: General Surgery Office Address [address] [place] [address] [place] [address] Office Primary Care Provider Not On Staff Doctor Time spent on discharge: > 30 minutes Pending Labs RUN DATE: 03/08/19 [facility] PAGE 1 RUN TIME: 9410 [address] [place] [address] Mik Mcgregor M.D. Water Conservation Specialist Annette Barney M.D. Co-Water Conservation Specialist CORRY#: [id number] Name: CANDI JENKINS Age/Sex: 53/M Attend Dr: MADDIE HOYOS MD Acct: [id number] MR# : [id number] : 1965 Location: [address] [place], [place] [address]-A Admit: 02/20/19 Specimen: [id number] Status: Complete Ruy: 03/05/19-1010 Rcvd: 03/05/19-1124 Source: ABD FLUID Sp Descrip: Procedure Result Microbiology GRAM STAIN Final POLYMORPH. LEUKOCYTE 3+ GRAM NEGATIVE RODS 1+ BODY FLUID CULTURE Final Organism 1 PANTOEA AGGLOMERANS QUANTITY 3+ Organism 2 CITROBACTER KOSERI QUANTITY 1+ P AGGLOMER P AGGLOMER C MARINAERI M.I.C. RX M.I.C. RX M.I.C. RX --------- --- --------- --- --------- --- CEFEPIME 8 I CEFOTAXIME R S CIPROFLOXACIN >=4 R 1 S GENTAMICIN <=1 S <=1 S LEVOFLOXACIN >=8 R 1 S MEROPENEM 0.064 S TOBRAMYCIN <=1 S <=1 S TRIMETHOPRIM/SULFAMETHOXAZOLE >=320 R <=20 S PIPERACILLIN/TAZOBACTAM 8 S ............................................................. ............................... Flags: Critical Hi = *H Critical Lo = *L Microbiology Abnormal = * Abnormal Hi = H Abnormal Lo = L Blood Bank Abnormal = * Susceptability Flags: S = Sensitive R = Resistant I = Intermediate END OF REPORT RUN TIME: [address] [place] [address] Mik Mcgregor M.D. Water Conservation Specialist Annette Barney M.D. Co-Water Conservation Specialist BRIANNEFARA#: [id number] Name: CANDI JENKINS Age/Sex: 53/M Attend Dr: MADDIE HOYOS MD Acct: [id number] MR# : [id number] : 1965 Location: ICU 110-A Admit: 02/20/19 Specimen: [id number] Status: Complete Ruy: 02/20/19 Rcvd: 02/20/19 Source: BLOOD Sp Descrip: Procedure Result ------- Microbiology BLOOD CULTURE Final BCULT GRAM BOTTLE 1 Gram negative rods . seen on gram stain of the broth Organism 1 ESCHERICHIA COLI (ESBL) . MULTI DRUG RESISTANT ORGANISM CRITICAL TEST VALUE BTL 1 . PHONED TO & READ BACK BY BEBETO,02/21/19,7984/TT Susceptibilities previously reported, see prior culture report of same specimen site. PHONED TO MOOK, ICU, NATHANIEL,PHARM, RAMIREZ, I.C., AT 5877, 02/23/19, HN. ............................................................................................ Flags: Critical Hi = *H Critical Lo = *L Microbiology Abnormal = * Abnormal Hi = H Abnormal Lo = L Blood Bank Abnormal = * Susceptability Flags: S = Sensitive R = Resistant I = Intermediate END OF REPORT JIMENA STONE NP Mar 14, 2019 11:00
--- NOTE | 2019-03-14 11:23 | PN ---
Date/Time of Note Date/Time of Note DATE: 03/14/19 TIME: 11:21 Assessment/Plan Lines/Catheters IV Catheter Type (from Nrs): portacath Bah in Place (from Nrs): No Assessment/Plan Chief Complaint/Hosp Course 1. Splenic abnormality on CT with possible abscess versus hematoma versus cyst: reviewed ct with radiologist: probable splenic infarct; since now w leukocytosis and fevers reviewed CT again w Radiologist who believes it is abscess > s/p IR drain, cxs noted. Pain significantly improved. CT noted with persistent collection. repeat ct noted drain still in abscess -abx per ID -pain control> nonnarcotics -supportive -continue drain- flush q shift -Ok for dc from surgical standpoint with drain and hh for drain care, abx per ID. To follow w us in [address] done prior to appointment. 2. Bacteremia with ESBL and Cytrobacter, concern for endocarditis> status post KALEY (no vegetation) 3. Sepsis secondary to above (blood, spleen, bowel, uti, cardiac valves, recent surgery), resolved 4. Anemia stable 5. BMI 33 -diet/exercise optimization 6. Abdominal pain secondary to above: resolved 8. Bradycardia: Improving - monitor Thank you. Patient seen and examined in collaboration with Dr. Yuriy Wu. Subjective 24 Hr Interval Summary Feels well. No fevers, chills, sob, congested cough, cp, palpitations, metz, dizziness, n/v/d/dysuria. Exam/Review of Systems Vital Signs Vitals Vital Signs Date Temp Pulse Resp B/P (MAP) Pulse Ox O2 O2 Flow FiO2 Time Delivery Rate 03/14/19 97.7 45 118/69 98 Room Air 07:39 (85) 03/14/19 18 02:37 03/11/19 2.0 09:54 Intake and Output 03/13/19 03/13/19 03/14/19 1515:00 23:00 07:00 IntakeIntake Total 960 ml 1152.5 ml 240 ml BalanceBalance 960 ml 1152.5 ml 240 ml Exam Free Text/Dictation Constitutional: alert, oriented, NAD Psych: Normal mood No confusion Head: normocephalic, atraumatic Eyes: nl conjunctiva, EOMI, PERRL; No icteric ENMT: nl external ears & nose, nl lips & teeth Neck: supple, non-tender; No jvd Respiratory: normal air movement; No labored breathing, No wheezing Cardiovascular: regular rate and rhythm; No edema Gastrointestinal: soft, distended, left abdomen tenderness, drain (purulent drainage) No rebound or guarding Musculoskeletal: No nl gait and stance, No joint tenderness Extremities: normal pulses; No calf tenderness, No edema Neurological: nl mental status, nl speech Skin: nl turgor; hives No diaphoresis Lymph: nl lymph nodes Results Result Diagram: 03/11/19 0438 03/13/19 0429 BRUNO SALDANA NP Mar 14, 2019 11:23
--- NOTE | 2019-03-14 11:29 | CONS ---
Assessment/Plan Assessment/Plan Hospital Course (Demo Recall) No events, looks comfortable, no fevers Microbiology: Urine culture negative. Blood culture on admission grew E. coli ESBL, repeat blood cultures negative. Fluid culture grew Pantoea, both penelope ceptible to tobramycin a and Citrobacter Antimicrobials: Tobramycin Allergy: Meropenem, causes rash Indwelling: Right chest Port-A-Cath, left-sided abdominal catheter Physical examination: This is well-nourished ill-appearing middle-aged man who is alert in no distress. Head atraumatic normocephalic neck is supple chest rise symmetrical breath sounds diminished to bases heart: S1-S2 abdomen obese soft bowel sounds present extremities with trace edema Assessment: 1. Sepsis with recurrent bacteremia ===> KALEY negative 2. Splenomegaly with abscess===> s/p CT guided drainage 120 cc 3. B pleural effusion, possible pneumonia 5. Chronic anemia 6. History of E. coli ESBL and Citrobacter bacteremia on January 31, 2019 7. Status post open hemorrhoidectomy 01/27/19 Plan: Remains stable, continue antibiotics for 7 more days, then repeat CT Consultation Date/Type/Reason Admit Date/Time Feb 20, 2019 at 23:21 Initial Consult Date Type of Consult id Requesting Provider: DANIELA BRUNSON Date/Time of Note DATE: 03/14/19 TIME: 11:28 Exam/Review of Systems Exam Vitals Vital Signs Date Temp Pulse Resp B/P (MAP) Pulse Ox O2 O2 Flow FiO2 Time Delivery Rate 03/14/19 97.7 45 118/69 98 Room Air 07:39 (85) 03/14/19 18 02:37 03/11/19 2.0 09:54 Intake and Output 03/13/19 03/13/19 03/14/19 1515:00 23:00 07:00 IntakeIntake Total 960 ml 1152.5 ml 240 ml BalanceBalance 960 ml 1152.5 ml 240 ml Results Result Diagram: 03/11/19 0438 03/13/19 0429 Medications Medication Current Medications IV Flush (NS 3 ml) 3 ml PER PROTOCOL IV Last administered on 02/25/19at 08:55; Admin Dose 3 ML; Start 02/21/19 at 01:30 Ondansetron HCl (Zofran Inj) 4 mg Q6H PRN IV NAUSEA/VOMITING Last administered on 03/09/19 06:22; Admin Dose 4 MG; Start 02/21/19 at 01:30 Docusate Sodium (Colace) 100 mg Q12H PRN PO .CONSTIPATION Last administered on 02/25/19 08:51; Admin Dose 100 MG; Start 02/21/19 at 01:30 Magnesium Hydroxide (Milk Of Mag) 30 ml DAILY PRN PO .CONSTIPATION; Start 02/21/19 at 01:30 Heparin Sodium (Porcine) (Heparin (5000 Units/1ml)) 5,000 unit Q12 SC Last adm inistered on 03/14/19 08:16; Admin Dose 5,000 UNIT; Start 02/21/19 at 09:00 Albuterol/ Ipratropium (Duoneb) 3 ml Q4H RESP THERAPY PRN HHN SHORTNESS OF BREATH; Start 02/21/19 at 01:30 Hydralazine HCl (Apresoline) 10 mg Q6H PRN IV ELEVATED BLOOD PRESSURE; Start 02/21/19 at 01:30 Nitroglycerin (Nitroglycerin (Sl Tab) 0.4 Mg) 1 tab Q5M PRN SL ANGINA; Start 02/21/19 at 01:30 Ferrous Sulfate (Ferrous Sulfate (Ec)) 325 mg DAILY PO Last administered on 03/14/19 08:12; Admin Dose 325 MG; Start 02/21/19 at 09:00 Guaifenesin (Robitussin Liquid Cup) 200 mg Q4H PRN PO COUGH Last administered on 03/04/19 03:52; Admin Dose 200 MG; Start 02/22/19 at 14:30 Polyethylene Glycol (Miralax) 17 gm BID PO Last administered on 03/14/19 08:13; Admin Dose 17 GM; Start 02/24/19 at 21:00 Bisacodyl (Dulcolax) 10 mg DAILY PRN PO CONSTIPATION; Start 02/24/19 at 15:30 Famotidine (Pepcid) 20 mg BID PO Last administered on 03/14/19 08:12; Admin Dose 20 MG; Start 02/26/19 at 21:00 Diphenhydramine HCl (Benadryl) 25 mg Q6H PRN IV allergy Last administered on 03/06/19 18:24; Admin Dose 25 MG; Start 03/03/19 at 10:30 Tobramycin (Tobramycin Iv Per Pharmacy) TOBRAMYCIN PER PHARMACY NOTE XX ; Start 03/03/19 at 16:00 Loratadine (Claritin) 10 mg DAILY PO Last administered on 03/14/19at 08:12; Admin Dose 10 MG; Start 03/03/19 at 17:00 Tobramycin 500 mg/ Dextrose 112.5 ml @ 103.75 mls/ hr Q24H IVPB Last administ ered on 03/13/19at 17:41; Admin Dose 103.75 MLS/HR; Start 03/03/19 at 18:00 Hydromorphone HCl (Dilaudid) 1 mg Q2 PRN IV SEVERE PAIN LEVEL 7-10 Last administered on 03/04/19at 21:20; Admin Dose 1 MG; Start 03/04/19 at 18:00 Hydromorphone HCl (Dilaudid) 0.5 mg Q4H PRN IV SEVERE PAIN LEVEL 7-10; Start 03/08/19 at 23:30 Methylprednisolone Sodium Succinate (Solu-Medrol) 60 mg BID IV Last administered on 03/14/19at 08:13; Admin Dose 60 MG; Start 03/09/19 at 21:00 Acetaminophen/ Hydrocodone Bitart ([place] (5/325)) 1 tab Q6H PRN PO MODERATE PAIN LEVEL 4-6 Last administered on 03/11/19at 22:10; Admin Dose 1 TAB; Start 03/11/19 at 22:00 JAYRO SANTIAGO NP Mar 14, 2019 11:29
[2019-03-14 14:54] VITALS: BP 111/74; PULSE 75; RESP 20
[2019-03-14] MEDS: TOBRAMYCIN 500 MG in DEXTROSE 5% 100 ML IVPB SCH ×2 (17:00→18:11)
== END 2019-03-14 19:25 | disposition home health service (06) | DRG 872 ==
LOC: E/R 17:29 → ICU 23:21 → 2NE 02-23 16:40
PROVIDERS: ADMIT Hospitalist; ATTEND Internal Medicine
PROC: B246ZZ4 Ultrasonography of Right and Left Heart, Transesophageal (ICD-10-PCS; 2019-03-03)
PROC: 079P30Z Drainage of Spleen with Drainage Device, Percutaneous Approach (ICD-10-PCS; principal; 2019-03-05)
DX: A41.51 Sepsis due to Escherichia coli [E. coli] (principal); J90 Pleural effusion, not elsewhere classified; D73.3 Abscess of spleen; D50.9 Iron deficiency anemia, unspecified; R16.1 Splenomegaly, not elsewhere classified; L50.9 Urticaria, unspecified; R00.1 Bradycardia, unspecified; E66.9 Obesity, unspecified; Z68.32 Body mass index [BMI] 32.0-32.9, adult; Z98.890 Other specified postprocedural states
CPT/HCPCS: 71045; 74150; 74177; 74178; 76775; 77012; 80048; 80053; 80061; 80076; 80200; 82565; 82728; 83036; 83540; 83605; 83735; 84100; 84439; 84443; 84484; 84520; 85025; 85610; 85730; 87070; 87081; 87086; 92610; 93005; 93306; 93312; 93320; 93325; 94644; 96365; 96366; 96368; 97110; 97116; 97162; 97530; C9113; J0692; J1170; J1200; J1644; J1885; J1940; J2001; J2185; J2270; J2405; J2930; J3010; J3260; J3370; J7030; J7050; Q9967

== ENCOUNTER 2019-03-17 10:06 | Emergency (ER) | payer OTHER ==
[~2019-03-17] VITALS: Wt 81.8 kg
[~2019-03-17 10:06] MED LIST changes: -CIPR-193 PO; +FAMO20TA18 PO; -HYDR-3601 PO; +MED4DP PO; -PANT40TA3 PO; +SENN-36 PO; +TOBRAMYCIN XX; +TRAM50TA PO
[2019-03-17 10:35] VITALS: BP 113/77; PULSE 77; RESP 20
[2019-03-17] MEDS ORDERED: SULF1TAB31 PO (11:35)
--- NOTE | 2019-03-18 17:35 | ERD ---
ER Documentation Chief Complaint Chief Complaint pt. has drainage equipment w rash under stat locks HPI 53-year-old male with history of multiple comorbidities presents with localized rash to near his BENY drain x 1 day. Patient was recently admitted to [facility] from February 21 - 2018 for sepsis. Patient additionally had a splenic abscess that required percutaneous drainage. Patient was placed in a BENY drain and discharged home w/ IV tobramycin. noticed a rash around the taping of the BENY drain so she brought her here for further evaluation. There have been no fevers. No nausea or vomiting. No trauma. No other concerns. Patient is scheduled to see general surgeon, Dr. Wu on March 24, 2019 for follow-up. ROS All systems reviewed and are negative except as per history of present illness. Medications Home Meds Active Scripts Sulfamethoxazole/Trimethoprim* (Bactrim Ds* Tablet) 1 Each Tablet, 1 TAB PO BID, #14 TAB Prov:TAYLOR SALINAS PA-C 03/17/19 Tramadol Hcl* (Ultram*) 50 Mg Tablet, 50 MG PO Q6H PRN for PAIN, #6 TAB Prov:JIMENA STONE NP 03/14/19 [Tobramycin Iv Per Pharmacy] 1 EA EACH No Conflict Check, 0 EA XX NOTE for 7 Days Last day 03/20/2019. Prov:JIMENA STONE NP 03/14/19 Famotidine* (Famotidine*) 20 Mg Tablet, 20 MG PO BID, #20 TAB Prov:JIMENA STONE NP 03/14/19 Methylprednisolone* (Medrol* DOSE PACK) 4 Mg/Dose-Pack Tab.ds.pk, 4 MG PO . DIRECTED, #1 PACKET Please give 1 PACKET of Medrol dose pack. Prov:JIMENA STONE NP 03/14/19 Sennosides* (Senokot*) 8.6 Mg Tablet, 1 TAB PO BID, #30 TAB Prov:JIMENA STONE NP 03/14/19 Ferrous Sulfate* (Ferrous Sulfate*) 325 Mg Tabec, 325 MG PO DAILY, #30 TAB Prov:JIMENA STONE NP 03/14/19 Discontinued Reported Medications Ferrous Sulfate* (Ferrous Sulfate*) 325 Mg Tabec, 325 MG PO DAILY, TAB 01/25/19 Discontinued Scripts Ciprofloxacin Hcl* (Ciprofloxacin Hcl*) 250 Mg Tablet, 250 MG PO BID for 4 Days, #8 TAB Prov:JOSE R MARIE 02/03/19 Hydrocodone Bit-Acetaminophen (Hydrocodone Bit-APAP) 5-325MG Tablet, 1 TAB PO Q6H PRN for PAIN LEVEL 6-10, #30 TAB Prov:JOSE R MARIE 02/03/19 Pantoprazole* (Protonix*) 40 Mg Tablet.dr, 40 MG PO DAILY for 30 Days, #30 TAB 2 Refills Prov:NATHALY DECKERNeil Sawant 01/08/19 Allergies Allergies: Coded Allergies: meropenem (Verified Allergy, Unknown, hives, 03/05/19) PMhx/Soc History of Surgery: Yes (Hemorrhoidectomy, Right Knee Sx, tonsillectomy) Anesthesia Reaction: No Hx Neurological Disorder: No Hx Respiratory Disorders: No Hx Cardiac Disorders: No Hx Psychiatric Problems: No Hx Miscellaneous Medical Probl: Yes (MILD OBESITY) Hx Alcohol Use: No Hx Substance Use: No Hx Tobacco Use: No Smoking Status: Never smoker Physical Exam Vitals Vital Signs Date Temp Pulse Resp B/P (MAP) Pulse Ox O2 O2 Flow FiO2 Time Delivery Rate 03/17/19 98.7 77 20 113/77 98 10:35 (89) Physical Exam Const: No acute distress Head: Atraumatic Eyes: Normal Conjunctiva ENT: Normal External Ears, Nose and Mouth. Neck: Full range of motion. No meningismus. Resp: Clear to auscultation bilaterally Cardio: Regular rate and rhythm, no murmurs Abd: Soft, non tender, non distended. Normal bowel sounds Skin: + Drain to the left upper chest wall, pustular rash w/ surrounding erythema near the dressing site, no warmth, no tenderness, fluctuance or induration. Ext: No cyanosis, or edema Neur: Awake and alert Psych: Normal Mood and Affect Procedures/MDM MEDICAL DECISION MAKING: This is a 53-year-old male with multiple comorbidities and recent hos pitalization for sepsis and splenic abscess presents with what appears to be a localized reaction near his dressing site. Dressing was changed. He has no fever here and his vital signs are normal. Patient has no evidence of cellulitis, sepsis or deep space infection however given his recent admission and multiple comorbidities, will treat prophylactically for MRSA cellulitis. P liz was discharged home with prescription for Bactrim. He was told to continue his daily IV tobramycin. He has a wound care nurse that changes his dressing daily. He has an appointment with general surgeon, Dr. Wu in 1 week. Strict return precautions were discussed. PRESCRIPTIONS: Bactrim SPECIALIST FOLLOW UP RECOMMENDED: General surgeon, Dr. Wu Patient has been advised to follow up with primary care in 1-2 days. Departure Diagnosis: Primary Impression: Localized rash Condition: Stable Patient Instructions: Cellulitis Referrals: [facility] YOU HAVE RECEIVED A MEDICAL SCREENING EXAM AND THE RESULTS INDICATE THAT YOU DO NOT HAVE A CONDITION THAT REQUIRES URGENT TREATMENT IN THE EMERGENCY DEPARTMENT. FURTHER EVALUATION AND TREATMENT OF YOUR CONDITION CAN WAIT UNTIL YOU ARE SEEN IN YOUR DOCTORS OFFICE WITHIN THE NEXT 1-2 DAYS. IT IS YOUR RESPONSIBILITY TO MAKE AN APPOINTMENT FOR FOLOW-UP CARE. IF YOU HAVE A PRIMARY DOCTOR --you should call your primary doctor and schedule an appointment IF YOU DO NOT HAVE A PRIMARY DOCTOR YOU CAN CALL OUR PHYSICIAN REFERRAL HOTLINE AT IF YOU CAN NOT AFFORD TO SEE A PHYSICIAN YOU CAN CHOSE FROM THE FOLLOWING [facility] [id number] [facility] [facility] [address] [address] [facility]. [facility] [address] [address] [facility] [facility] [address] [facility] [facility] [address] [facility] [address] [facility]. [facility]. [address] [facility]. [facility] YOU HAVE RECEIVED A MEDICAL SCREENING EXAM AND THE RESULTS INDICATE THAT YOU DO NOT HAVE A CONDITION THAT REQUIRES URGENT TREATMENT IN THE EMERGENCY DEPARTMENT. FURTHER EVALUATION AND TREATMENT OF YOUR CONDITION CAN WAIT UNTIL YOU ARE SEEN IN YOUR DOCTORS OFFICE WITHIN THE NEXT 1-2 DAYS. IT IS YOUR RESPONSIBILITY TO MAKE AN APPOINTMENT FOR FOLOW-UP CARE. IF YOU HAVE A PRIMARY DOCTOR --you should call your primary doctor and schedule and appointment IF YOU DO NOT HAVE A PRIMARY DOCTOR YOU CAN CALL OUR PHYSICIAN REFERRAL HOTLINE AT . IF YOU CAN NOT AFFORD TO SEE A PHYSICIAN YOU CAN CHOSE FROM THE FOLLOWING [facility]: [facility] [id number] [place] [address] [facility] [address] [place] [address] [facility] [address] [place] [address] Additional Instructions: Take the antibiotics for the next 7 days. Make sure that the home care nurse to changes the dressing and the tape daily. Keep your appointment Dr. Wu. Return here for any new or worsening symptoms. TAYLOR SALINAS PA-C Mar 18, 2019 16:22
== END 2019-03-17 12:03 | disposition home or self-care (01) ==
LOC: FTE 10:06
DX: R21 Rash and other nonspecific skin eruption (principal); Z97.8 Presence of other specified devices
CPT/HCPCS: 99283

== ENCOUNTER 2019-03-22 10:13 | Inpatient (IN) | payer OTHER ==
[~2019-03-22] VITALS: Ht 165.1 cm; Wt 76.8 kg
[~2019-03-22 10:13] MED LIST changes: +SULF1TAB31 PO
[2019-03-22 10:23] VITALS: Ht 165.1 cm; Wt 76.8 kg
--- NOTE | 2019-03-22 11:08 | ERD ---
ER Documentation Chief Complaint Chief Complaint sent by PMD for abominal CT HPI 53-year-old male with history of splenic abscess requiring recent admission presents for abdominal CT. Patient states that his primary care provider Osman Valdes NP told him that he needed a repeat CT in order to determine whether the infection has resolved completely. Patient is ambulatory. Denies fevers, chills, abdominal pain, nausea, vomiting, diarrhea, constipation, hematochezia.. ROS All systems reviewed and are negative except as per history of present illness. Medications Home Meds Active Scripts Sulfamethoxazole/Trimethoprim* (Bactrim Ds* Tablet) 1 Each Tablet, 1 TAB PO BID, #14 TAB Prov:TAYLOR SALINAS PA-C 03/17/19 Tramadol Hcl* (Ultram*) 50 Mg Tablet, 50 MG PO Q6H PRN for PAIN, #6 TAB Prov:OSMAN STONE NP 03/14/19 [Tobramycin Iv Per Pharmacy] 1 EA EACH No Conflict Check, 0 EA XX NOTE for 7 Days Last day 03/20/2019. Prov:OSMAN STONE NP 03/14/19 Famotidine* (Famotidine*) 20 Mg Tablet, 20 MG PO BID, #20 TAB Prov:OSMAN STONE NP 03/14/19 Methylprednisolone* (Medrol* DOSE PACK) 4 Mg/Dose-Pack Tab.ds.pk, 4 MG PO . DIRECTED, #1 PACKET Please give 1 PACKET of Medrol dose pack. Prov:OSMAN STONE NP 03/14/19 Sennosides* (Senokot*) 8.6 Mg Tablet, 1 TAB PO BID, #30 TAB Prov:OSMAN STONE NP 03/14/19 Ferrous Sulfate* (Ferrous Sulfate*) 325 Mg Tabec, 325 MG PO DAILY, #30 TAB Prov:OSMAN STONE NP 03/14/19 Allergies Allergies: Coded Allergies: meropenem (Verified Allergy, Unknown, hives, 03/05/19) PMhx/Soc History of Surgery: Yes (Hemorrhoidectomy, Right Knee Sx, tonsillectomy) Anesthesia Reaction: No Hx Neurological Disorder: No Hx Respiratory Disorders: No Hx Cardiac Disorders: No Hx Psychiatric Problems: No Hx Miscellaneous Medical Probl: Yes (MILD OBESITY) Hx Alcohol Use: No Hx Substance Use: No Hx Tobacco Use: No Smoking Status: Never smoker FmHx Family History: No diabetes, No coronary disease, No other Physical Exam Vitals Vital Signs Date Temp Pulse Resp B/P (MAP) Pulse Ox O2 O2 Flow FiO2 Time Delivery Rate 03/22/19 97.8 66 18 132/81 99 10:23 (98) Physical Exam Const: No acute distress Head: Atraumatic Eyes: Normal Conjunctiva ENT: Normal External Ears, Nose and Mouth. Neck: Full range of motion. No meningismus. Resp: Clear to auscultation bilaterally Cardio: Regular rate and rhythm, no murmurs Abd: Soft, non tender, non distended. Normal bowel sounds Skin: No petechiae or rashes Back: No midline or flank tenderness Ext: No cyanosis, or edema Neur: Awake and alert Psych: Normal Mood and Affect Result Diagram: 03/22/19 1153 03/22/19 1153 Results 24 hrs Laboratory Tests Test 03/22/19 11:53 White Blood Count 16.1 10^3/ul Red Blood Count 4.87 10^6/ul Hemoglobin 12.2 g/dl Hematocrit 39.2 % Mean Corpuscular Volume 80.5 fl Mean Corpuscular Hemoglobin 25.1 pg Mean Corpuscular Hemoglobin Concent 31.1 g/dl Red Cell Distribution Width 24.8 % Platelet Count 236 10^3/UL Mean Platelet Volume 10.8 fl Immature Granulocytes % 0.900 % Neutrophils % 87.7 % Lymphocytes % 5.5 % Monocytes % 4.4 % Eosinophils % 1.2 % Basophils % 0.3 % Nucleated Red Blood Cells % 0.0 /100WBC Immature Granulocytes # 0.150 10^3/ul Neutrophils # 14.1 10^3/ul Lymphocytes # 0.9 10^3/ul Monocytes # 0.7 10^3/ul Eosinophils # 0.2 10^3/ul Basophils # 0.1 10^3/ul Nucleated Red Blood Cells # 0.0 10^3/ul Sodium Level 139 mmol/L Potassium Level 4.1 mmol/L Chloride Level 106 mmol/L Carbon Dioxide Level 24 mmol/L Anion Gap 9 Blood Urea Nitrogen 22 mg/dl Creatinine 0.62 mg/dl Est Glomerular Filtrat Rate mL/min > 60 mL/min Glucose Level 77 mg/dl Calcium Level 9.3 mg/dl Total Bilirubin 0.7 mg/dl Direct Bilirubin 0.00 mg/dl Indirect Bilirubin 0.7 mg/dl Aspartate Amino Transf (AST/SGOT) 22 IU/L Alanine Aminotransferase (ALT/SGPT) 57 IU/L Alkaline Phosphatase 84 IU/L Total Protein 7.2 g/dl Albumin 3.9 g/dl Globulin 3.30 g/dl Albumin/Globulin Ratio 1.18 Current Medications Medications Dose Sig/Mariano Start Time Status Last (Trade) Ordered Route PRN Stop Time Admin Dose Reason Admin Sodium 1,000 ml @ Q1H STAT 03/22/19 DC 03/22/19 Chloride 1,000 mls/hr IV 11:12 03/22/19 12:06 12:11 IV Flush 10 ml STK-MED 03/22/19 DC 03/22/19 (NS 10 ml) ONCE .ROUTE 13:14 03/22/19 13:21 13:15 Sodium 100 ml @ ud STK-MED 03/22/19 DC 03/22/19 Chloride ONCE .ROUTE 13:14 03/22/19 13:21 13:15 Iohexol 150 ml STK-MED 03/22/19 DC 03/22/19 (Omnipaque ONCE .ROUTE 13:14 03/22/19 13:21 300mg/ ml) 13:15 Procedures/MDM DIAGNOSTIC IMAGING REPORT Patient: CANDI JNEKINS : 1965 Age: 53 Sex: M MR #: [id number] DOS: 03/22/19 1103 Ordering MD: ELIDA BRADLEY Location: [facility] Room/Bed: PROCEDURE: CT ABDOMEN WITH IV CONTRAST. CLINICAL INDICATION: History of splenic abscess TECHNIQUE: CT scan of the abdomen with IV contrast was performed on a multidetector high-resolution CT scanner following the use of IV contrast. 90 cc Omnipaque-300 was administered. Coronal and sagittal reformatted images were obtained from the axial source images. Images were reviewed on a high-resolution PACS workstation. The total exam CTDI equals 19 mGy and the total exam DLP equals 685.3 mGy-cm. One or more of the following dose reduction techniques were used: Automated exposure control. Adjustment of the mA and/or kV according to patient size. Use of iterative reconstruction technique. DICOM images are available. COMPARISON: CT ABDOMEN 03/12/2019 FINDINGS: CT abdomen: Bilateral lower lobe consolidation and small left-sided pleural effusion. Heart size is enlarged. No significant pericardial effusion. Hepatic morphology is within normal limits. No gross contour deforming masses. The gallbladder is within normal limits. No evidence of intrahepatic or extrahepatic biliary dilatation. The spleen is mildly enlarged and there is a large splenic focal fluid collection measuring 9.8 x 4.3 cm. A percutaneous drainage catheter is noted within the focal fluid collections. Several foci of air is noted internally. This does not appear to be changed in size or appearance since prior study and may have slightly increased in size since prior study. Both adrenal glands are within normal limits. Both kidneys are in normal anatomic position. No evidence of obstruction or hydronephrosis. No gross renal/ureteric calculi. The visualized GI tract demonstrates normal caliber loops of small and large bowel. No evidence of bowel obstruction. Aorta is unremarkable. Several shoddy retroperitoneal lymph nodes. The visualized osseous structures demonstrates multilevel degenerative disc disease of the lumbosacral spine. Bilateral L5 pars interarticular defect are identified. IMPRESSION: 1. MILD SPLENOMEGALY. THERE IS A LARGE SPLENIC FOCAL FLUID COLLECTION MEASURING 9.8 X 4.3 CM, CONTAINING A PERCUTANEOUS DRAINAGE CATHETER. SEVERAL FOCI OF AIR ARE NOTED SCATTERED WITHIN THE ABSCESS. THIS DOES NOT APPEAR TO BE SLIGHTLY CHANGED IN SIZE OR APPEARANCE SINCE PRIOR EXAMINATION AND MAY HAVE SLIGHTLY INCREASED IN SIZE SINCE PRIOR STUDY. CHECK TO SEE IF DRAINAGE CATHETER IS FUNCTIONING. 2. Left lower lobe consolidation; pneumonia versus atelectasis and small left p leural effusion. 3. Mild cardiomegaly. 4. No gross evidence of bowel obstruction. RPTAT: AAPP Physician Catalino Date Time Electronically viewed and signed by Physician Catalino on 03/22/2019 13:46 JL/ CC: ELIDA BRADLEY [id number] MDM: Given patient history and PMD concern for unresolved splenic abscess CT abdomen was performed. CT results were positive for abscess as well possible pneumonia. CBC showed a white count and blood culture was sent out, results are pending. Case was discussed with supervising Dr Jansen who took over management of patient. Patient admitted. Departure Diagnosis: Primary Impression: Splenic abscess Additional Impression: Pneumonia Pneumonia type: due to unspecified organism Laterality: unspecified laterality Lung location: lower lobe of lung Qualified Codes: J18.1 - Lobar pneumonia, unspecified organism Condition: Serious ELIDA BRADLEY Mar 22, 2019 11:08
[2019-03-22] MEDS ORDERED: SOD CHLORIDE 0.9% 1,000 ML IV STA (11:12)
[2019-03-22] MEDS ORDERED: SOD CHLORIDE 0.9% 100 ML ONE (13:14)
[2019-03-22] MEDS ORDERED: IOHEXOL 300MG/ML 150 ML BTL ONE (13:14)
[2019-03-22] MEDS ORDERED: AZTREONAM 1 GM/NS (PMX) 50 ML IVPB STA (14:15)
[2019-03-22] MEDS ORDERED: VANCOMYCIN 1 GM (PMX) 250 ML IVPB STA (14:15)
[2019-03-22] MEDS ORDERED: ONDANSETRON 4 MG INJ IV PRN (14:30)
[2019-03-22] MEDS ORDERED: ACETAMINOPHEN 325 MG TAB PO PRN ×2 (14:30→16:30)
--- NOTE | 2019-03-22 15:56 | HP ---
Date/Time of Note Date/Time of Note DATE: 03/22/19 TIME: 15:56 Assessment/Plan VTE Prophylaxis Pharmacological prophylaxis: LMWH Lines/Catheters IV Catheter Type (from [facility]): Saline Lock Assessment/Plan Hospital Course 53-year-old male with comorbidities including iron deficiency anemia and splenic abscess status post percutaneous drainage on 03/05/2019, was discharged home on 03/14/2019 with a drain in place for outpatient follow-up, who had returned back to the emergency room on 03/22/2019 because of inability to get a repeat CT scan done in a timely fashion. 1. Splenic abscess. Status post CT-guided percutaneous drainage of splenic fluid collection on 03/05/2019. Fluid culture from 03/05/19 showed Pantoea agglomerans and Citrobacter koseri. Latest CT scan showing fluid collection measuring 9.8 x 4.3 cm. Initiate antibiotics as per ID. 2. Left lower lobe infiltrate/atelectasis with a left sided pleural effusion. Most probably secondary to #1. Continue antimicrobials as per ID. Encourage incentive spirometry. 3. Iron deficiency. Continue iron supplements. Plan: The patient will be admitted to inpatient medical surgical floor. The p atient will be started on a regular diet. The patient will be started on DVT prophylaxis. The patient will remain a full code. Activities will be as tolerated. The rest of the patient's management will be based on the clinical course, inputs from consultants, and the results of diagnostic studies. Based on the patient's clinical presentation, he most probably requires more than 2 midnights' stay for further management and evaluation of his clinical presentation. The patient was seen in collaboration with Dr. Goldman. Result Diagram: 03/22/19 1153 03/22/19 1153 Results 24hrs Laboratory Tests Test 03/22/19 11:53 White Blood Count 16.1 #H Red Blood Count 4.87 Hemoglobin 12.2 L Hematocrit 39.2 L Mean Corpuscular Volume 80.5 L Mean Corpuscular Hemoglobin 25.1 L Mean Corpuscular Hemoglobin Concent 31.1 L Red Cell Distribution Width 24.8 H Platelet Count 236 # Mean Platelet Volume 10.8 H Immature Granulocytes % 0.900 H Neutrophils % 87.7 H Lymphocytes % 5.5 L Monocytes % 4.4 Eosinophils % 1.2 Basophils % 0.3 Nucleated Red Blood Cells % 0.0 Immature Granulocytes # 0.150 H Neutrophils # 14.1 H Lymphocytes # 0.9 Monocytes # 0.7 Eosinophils # 0.2 Basophils # 0.1 Nucleated Red Blood Cells # 0.0 Sodium Level 139 Potassium Level 4.1 Chloride Level 106 Carbon Dioxide Level 24 Anion Gap 9 Blood Urea Nitrogen 22 H Creatinine 0.62 Est Glomerular Filtrat Rate mL/min > 60 Glucose Level 77 Calcium Level 9.3 Total Bilirubin 0.7 Direct Bilirubin 0.00 Indirect Bilirubin 0.7 Aspartate Amino Transf (AST/SGOT) 22 Alanine Aminotransferase (ALT/SGPT) 57 Alkaline Phosphatase 84 Total Protein 7.2 Albumin 3.9 Globulin 3.30 H Albumin/Globulin Ratio 1.18 HPI/ROS Admit Date/Time Admit Date/Time Hx of Present Illness This is a 53-year-old male with past medical history of iron deficiency anemia, recent E. coli ESBL and Citrobacter bacteremia, splenic abscess status post CT- guided percutaneous drainage on 03/05/2019, and left-sided pleural effusion. The patient was discharged from [facility] after a prolonged hospitalization on 03/14/2019. The patient was discharged on IV antibiotics and expecting outpatient follow-up with general surgery and outpatient repeat CT scan of the abdomen and pelvis. The patient was unable to get the CT scan in a timely fashion because of insurance reasons. The patient had a follow-up appointment scheduled with the surgeon as outpatient. Meanwhile, the patient was instructed to return to the emergency room if he was unable to get the CT scan done with a timely fashion. Therefore, he came to the emergency room for repeat imaging on 03/22/2019. He was complaining of some pain in the area where the splenic drain is and also some night sweats. He denied any fevers. He denied any diarrhea, nausea, vomiting, or abdominal pain. In the emergency room, the patient was noticed to have leukocytosis (WBC 16.1). He was afebrile. The patient underwent a CT scan of the abdomen that was showing large splenic focal fluid collection measuring 9.8 x 4.3 cm, containing a percutaneous drainage catheter with several foci of air. The CT also showed left lower lobe consolidation; pneumonia versus atelectasis and a small left pleural effusion. He was treated with the IV vancomycin and aztreonam in the emergency room. ROS Constitutional: chills Eyes: no complaints ENT: no complaints Respiratory: no complaints Cardiovascular: no complaints Gastrointestinal: pain Genitourinary: no complaints Musculoskeletal: no complaints Skin: no complaints Neurologic: no complaints Endocrine: no complaints Lymphatic: no complaints Psychological: depression Immunologic: no complaints PMH/Family/Social Past Medical History 1. Splenic abscess. Status post CT-guided percutaneous drainage of splenic fluid collection on 03/05/2019. 2. Microcytic, hypochromic anemia. 3. Iron deficiency. 4. Left pleural effusion. Medications Current Medications Vancomycin HCl 250 ml @ 125 mls/hr ONCE STAT IVPB ; Start 03/22/19 at 14:15; Stop 03/22/19 at 16:14 Ondansetron HCl (Zofran Inj) 4 mg BRIDGE ORDER PRN IV NAUSEA/VOMITING; Start 03/22/19 at 14:30; Stop 03/23/19 at 14:29 Acetaminophen (Tylenol Tab) 650 mg ER BRIDGE PRN PO .MILD PAIN 1-3 OR TEMP; Start 03/22/19 at 14:30; Stop 03/23/19 at 14:29 Coded Allergies: meropenem (Verified Allergy, Unknown, hives, 03/05/19) Past Surgical History Hemorrhoid surgery. Past Surgical Hx: other Family History Significant Family History: no pertinent family hx Social History Lives at home with family. Alcohol Use: none Smoking Status: Never smoker Drug Use: none Exam/Review of Systems Vital Signs Vitals Vital Signs Date Temp Pulse Resp B/P (MAP) Pulse Ox O2 O2 Flow FiO2 Time Delivery Rate 03/22/19 97.8 66 18 132/81 99 10:23 (98) Exam Exam General: 53 year-old male lying in bed in no apparent distress. HEENT: Normocephalic, atraumatic. Eyes: Anicteric sclerae, conjunctivae clear. ENT: Nasal septum midline, oral mucosa moist. Neck supple, no JVD noticed. Respiratory: Bilaterally clear breath sounds. No use of accessory muscles of respiration. No adventitious breath sounds. Cardiovascular: S1, S2 heard. Regular rate and rhythm. Abdomen: Soft and nondistended. LUQ drain with brown colored fluid draining out. Bowel sounds positive in all 4 quadrants. Genitourinary: Deferred. Extremities: No cyanosis, no clubbing, no edema. Peripheral pulses palpable. Neurologic: Cranial nerves II through XII grossly intact. The patient is awake, alert, and oriented. Skin: Normal skin turgor. No skin rashes. Additional Comments Abdominal CT IMPRESSION: 1. MILD SPLENOMEGALY. THERE IS A LARGE SPLENIC FOCAL FLUID COLLECTION MEASURING 9.8 X 4.3 CM, CONTAINING A PERCUTANEOUS DRAINAGE CATHETER. SEVERAL FOCI OF AIR ARE NOTED SCATTERED WITHIN THE ABSCESS. THIS DOES NOT APPEAR TO BE SLIGHTLY CHANGED IN SIZE OR APPEARANCE SINCE PRIOR EXAMINATION AND MAY HAVE SLIGHTLY INCREASED IN SIZE SINCE PRIOR STUDY. CHECK TO SEE IF DRAINAGE CATHETER IS FUNCTIONING. 2. Left lower lobe consolidation; pneumonia versus atelectasis and small left p leural effusion. 3. Mild cardiomegaly. 4. No gross evidence of bowel obstruction. JIMENA STONE NP Mar 22, 2019 15:56
[2019-03-22] MEDS ORDERED: HYDROCODONE/APAP (5/325) TAB PO PRN (16:30)
[2019-03-22] MEDS ORDERED: NACL 0.9% 3 ML SYG IV SCH (16:30)
[2019-03-22] MEDS ORDERED: morphine 2 MG INJ IV PRN (16:30)
[2019-03-22] MEDS ORDERED: TOBRAMYCIN IV PER PHARMACY XX SCH (16:30)
[2019-03-22 18:00] VITALS: BP 136/78; PULSE 55; RESP 18
--- NOTE | 2019-03-22 18:05 | CONS ---
Assessment/Plan Assessment/Plan Hospital Course (Demo Recall) 1. Splenic abscess, leukocytosis, lactic acidosis s/p IR drain with revision of IR drain due to malposition re-presents with persistent abscess -IV fluids -abx per ID -pain control> non-narcotics -supportive -continue drain- flush q shift -If not improving may need to consider new drains or splenectomy 2. Recent bacteremia with ESBL and Cytrobacter s/p abx 3. Anemia stable 4. BMI 33>28 -diet/exercise optimization Thank you very much for consulting me in this patient's care, Consultation Date/Type/Reason Admit Date/Time Date of Consultation: Mar 22, 2019 Type of Consult G. Surgical Reason for Consultation Splenic abscess Leukocytosis Date/Time of Note DATE: 03/22/19 TIME: 17:58 Hx of Present Illness Anshul Lockwood is a 53yo male with multiple comorbidities who was previously admitted with ESBL and Citrobacter bacteremia and found to have a splenic abscess that was IR guided drained. The drain had pulled out and was repositioned by IR again. His leukocytosis improved. Pain was resolved. And he was discharged home with antibiotics. However since he is unable to follow- up easily as outpatient he presents back to the emergency room due to the fact that his drain output has decreased. Emergency room work-up identifies le ukocytosis and CT with the persistent collection. He is being admitted and surgical consult is obtained further evaluation and treatment. He reports minimal left-sided abdominal pain. He does not have current fevers or chills. No nausea nor vomiting. +Bowel function. No dysuria. No headache or visual changes. No chest pain or shortness of breath. No cough. No seizure. No blood per mouth or rectum. Denies any traumas. 12 point review of system is negative unless otherwise addressed in chart Past Medical History Recurrent GI bleeds Hemorrhoid BMI 33>28 Abdominal pain Recent bacteremia Splenomegaly with splenic abscess (Pantoea agglomerans and Citrobacter koseri) Iron deficiency and blood loss anemia Leukocytosis Increased lactic acid Home Meds Active Scripts Sulfamethoxazole/Trimethoprim* (Bactrim Ds* Tablet) 1 Each Tablet, 1 TAB PO BID, #14 TAB Prov:DISHIGRIKIAN,TAYLOR N PA-C 03/17/19 Tramadol Hcl* (Ultram*) 50 Mg Tablet, 50 MG PO Q6H PRN for PAIN, #6 TAB Prov:JIMENA STONE NP 03/14/19 [Tobramycin Iv Per Pharmacy] 1 EA EACH No Conflict Check, 0 EA XX NOTE for 7 Days Last day 03/20/2019. Prov:JIMENA STONE NP 03/14/19 Famotidine* (Famotidine*) 20 Mg Tablet, 20 MG PO BID, #20 TAB Prov:JIMENA STONE NP 03/14/19 Methylprednisolone* (Medrol* DOSE PACK) 4 Mg/Dose-Pack Tab.ds.pk, 4 MG PO . DIRECTED, #1 PACKET Please give 1 PACKET of Medrol dose pack. Prov:JIMENA STONE NP 03/14/19 Sennosides* (Senokot*) 8.6 Mg Tablet, 1 TAB PO BID, #30 TAB Prov:JIMENA STONE NP 03/14/19 Ferrous Sulfate* (Ferrous Sulfate*) 325 Mg Tabec, 325 MG PO DAILY, #30 TAB Prov:JIMENA STONE NP 03/14/19 Medications Current Medications Ondansetron HCl (Zofran Inj) 4 mg BRIDGE ORDER PRN IV NAUSEA/VOMITING; Start 03/22/19 at 14:30; Stop 03/23/19 at 14:29 IV Flush (NS 3 ml) 3 ml PER PROTOCOL IV ; Start 03/22/19 at 16:30 Acetaminophen (Tylenol Tab) 650 mg Q6H PRN PO .PAIN 1-3 OR TEMP; Start 03/22/19 at 16:30 Acetaminophen/ Hydrocodone Bitart ([place] (5/325)) 1 tab Q6H PRN PO .MOD PAIN 4- 6; Start 03/22/19 at 16:30 Morphine Sulfate (morphine) 2 mg Q4H PRN IV .SEVERE PAIN 7-10; Start 03/22/19 at 16:30 Bisacodyl (Dulcolax) 5 mg DAILY PRN PO .CONSTIPATION; Start 03/22/19 at 16:30 Enoxaparin Sodium (Lovenox) 40 mg DAILY SC ; Start 03/23/19 at 09:00 Tobramycin (Tobramycin Iv Per Pharmacy) TOBRAMYCIN PER PHARMACY NOTE XX ; Start 03/22/19 at 16:30 Docusate Sodium/ Ferrous Fumarate (Anette-Sequels) 1 tab BID PO ; Start 03/22/19 at 21:00 Tobramycin 500 mg/ Dextrose 112.5 ml @ 103.75 mls/ hr Q24H IVPB ; Start 03/22/19 at 18:00 Allergies: Coded Allergies: meropenem (Verified Allergy, Unknown, hives, 03/05/19) Past Surgical History Percutaneous drain of splenic abscess Hemorrhoidectomy by Dr. Medina in January Right shoulder surgery Knee surgery Right chest permacath Past Surgical Hx: other Family History Significant Family History: no pertinent family hx Social History Alcohol Use: none Smoking Status: Never smoker Drug Use: none Exam/Review of Systems Exam Vitals Vital Signs Date Temp Pulse Resp B/P (MAP) Pulse Ox O2 O2 Flow FiO2 Time Delivery Rate 03/22/19 98.0 60 18 119/72 96 Room Air 17:31 (88) Exam Constitutional: alert, oriented, overweight Psych: anxiety; No confusion Head: normocephalic, atraumatic Eyes: nl conjunctiva, EOMI, PERRL; No icteric ENMT: nl external ears & nose, nl lips & teeth Neck: supple, non-tender; No jvd Respiratory: normal air movement; No labored breathing, No wheezing Cardiovascular: regular rate and rhythm; No edema Gastrointestinal: soft, distended, minimal tender (Left abdomen, mostly upper); left-sided drain No rebound or guarding Musculoskeletal: No nl gait and stance, No joint tenderness Extremities: normal pulses; No calf tenderness, No edema Neurological: nl mental status, nl speech Skin: nl turgor; No rash or lesions, No diaphoresis Lymph: nl lymph nodes Results Result Diagram: 03/22/19 1153 03/22/19 1153 Results 24hrs Laboratory Tests Test 03/22/19 11:53 03/22/19 11:56 03/22/19 16:44 White Blood Count 16.1 #H Red Blood Count 4.87 Hemoglobin 12.2 L Hematocrit 39.2 L Mean Corpuscular Volume 80.5 L Mean Corpuscular Hemoglobin 25.1 L Mean Corpuscular Hemoglobin Concent 31.1 L Red Cell Distribution Width 24.8 H Platelet Count 236 # Mean Platelet Volume 10.8 H Immature Granulocytes % 0.900 H Neutrophils % 87.7 H Lymphocytes % 5.5 L Monocytes % 4.4 Eosinophils % 1.2 Basophils % 0.3 Nucleated Red Blood Cells % 0.0 Immature Granulocytes # 0.150 H Neutrophils # 14.1 H Lymphocytes # 0.9 Monocytes # 0.7 Eosinophils # 0.2 Basophils # 0.1 Nucleated Red Blood Cells # 0.0 Sodium Level 139 Potassium Level 4.1 Chloride Level 106 Carbon Dioxide Level 24 Anion Gap 9 Blood Urea Nitrogen 22 H Creatinine 0.62 Est Glomerular Filtrat Rate mL/min > 60 Glucose Level 77 Calcium Level 9.3 Total Bilirubin 0.7 Direct Bilirubin 0.00 Indirect Bilirubin 0.7 Aspartate Amino Transf (AST/SGOT) 22 Alanine Aminotransferase (ALT/SGPT) 57 Alkaline Phosphatase 84 Total Protein 7.2 Albumin 3.9 Globulin 3.30 H Albumin/Globulin Ratio 1.18 C-Reactive Protein 0.6 POC Venous Lactate 2.3 *H Medications Medication Current Medications Ondansetron HCl (Zofran Inj) 4 mg BRIDGE ORDER PRN IV NAUSEA/VOMITING; Start 03/22/19 at 14:30; Stop 03/23/19 at 14:29 IV Flush (NS 3 ml) 3 ml PER PROTOCOL IV ; Start 03/22/19 at 16:30 Acetaminophen (Tylenol Tab) 650 mg Q6H PRN PO .PAIN 1-3 OR TEMP; Start 03/22/19 at 16:30 Acetaminophen/ Hydrocodone Bitart ([place] (5/325)) 1 tab Q6H PRN PO .MOD PAIN 4- 6; Start 03/22/19 at 16:30 Morphine Sulfate (morphine) 2 mg Q4H PRN IV .SEVERE PAIN 7-10; Start 03/22/19 at 16:30 Bisacodyl (Dulcolax) 5 mg DAILY PRN PO .CONSTIPATION; Start 03/22/19 at 16:30 Enoxaparin Sodium (Lovenox) 40 mg DAILY SC ; Start 03/23/19 at 09:00 Tobramycin (Tobramycin Iv Per Pharmacy) TOBRAMYCIN PER PHARMACY NOTE XX ; Start 03/22/19 at 16:30 Docusate Sodium/ Ferrous Fumarate (Anette-Sequels) 1 tab BID PO ; Start 03/22/19 at 21:00 Tobramycin 500 mg/ Dextrose 112.5 ml @ 103.75 mls/ hr Q24H IVPB ; Start 03/22/19 at 18:00 ISAI RANDALL MD Mar 22, 2019 18:05
[2019-03-22 20:00] VITALS: BP 128/78; PULSE 83; RESP 16
[2019-03-22] MEDS: TOBRAMYCIN 500 MG in DEXTROSE 5% 100 ML IVPB SCH (21:48)
[2019-03-22] MEDS: FERROUS FUMARATE (SR) TAB PO SCH (21:48)
--- NOTE | 2019-03-23 00:21 | CONS ---
DATE OF ADMISSION: 03/22/2019 DATE OF CONSULTATION: 03/22/2019 TYPE OF CONSULTATION: Infectious disease. REASON FOR CONSULTATION: Antibiotic management. HISTORY OF PRESENT ILLNESS: Anshul Garcia is a 53-year-old male who was sent by h is PMD for abdominal CT scan. The patient has a history of splenic abscess. He was sent in by nurse practitioner, Osman Hernández, for repeat CT scan to determine whether the infection of the spleen was completely resolved. The patient has a drain in the splenic abscess. He is ambulatory. Denies fev er, nausea or vomiting. His past problems include status post hemorrhoidectomy, status post right kn ee surgery, status post tonsillectomy and mild obesity. PAST MEDICAL HISTORY: Otherwise is as outlined. FAMILY HISTORY: No history of diabetes. SOCIAL HISTORY: Does not smoke, drink or abuse drugs. ALLERGIES: NONE TO PENICILLIN, SULFA OR FOODS. MEDICATIONS: Per chart. REVIEW OF SYSTEMS: As per HPI. PHYSICAL EXAMINATION: GENERAL: The patient is alert, responsive, speaks Uzbek, but has family members who speak Lao to translate. He is in no acute distress. VITAL SIGNS: Stable. He is afebrile. SKIN: Without generalized rash. HEENT: Within normal limits. NECK: Supple. LYMPH NODES: None palpable. LUNGS: Clear to P and A. HEART: Without murmur or gallop. ABDOMEN: Soft, nontender. He has a drain in the left upper quadrant. EXTREMITIES: Without cyanosis, clubbing, or edema. RECTAL AND GENITAL: Deferred. NEUROLOGIC: No focal neurological abnormality. ANCILLARY LABORATORY DATA: White count 16.1, H and H of 12.2 and 39.2, platelet count 236,000. BUN and creatinine 22/0.67, glucose of 77 and his neutrophil count was 88%. A CT scan of the abdomen was done and it showed mild splenomegaly. There is a large splenic focal fluid collection measuring 9.8 x 4.2 cm, containing a percutaneous drainage catheter, several foci of air noted scattered within th e abscess. This does not appear to be slightly change in size or appearance since prior examination, may have slightly increased in size since prior study. Check to see if the drainage catheter is fun ctioning. He has left lower lobe consolidation, pneumonia versus atelectasis and a small left pleura l effusion, mild cardiomegaly, no gross evidence of bowel obstruction. He was seen by Osman Hernández, status post CT-guided percutaneous drainage on 03/05/2019. CURRENT MEDICATIONS: Include: 1. HE IS ALLERGIC TO MEROPENEM. The patient currently is on vancomycin. I believe he is to be seen by Dr. Wu. The patient is known to us from his recent admission. He was discharged I think on 03/16, possibly actually on 03/14/2019. At that time, his urine culture was negative. Blood cultur e grew E. coli ESBL. Repeat cultures were negative. Fluid cultures grew pantoea, both susceptible t o tobramycin and Citrobacter. He had a right chest Port-A-Cath, left-sided abdominal catheter. He h ad a KALEY which was negative. He had CT-guided drainage of 120 mL. He grew out Citrobacter koseri as well which was sensitive to tobramycin. It would seem that he would need to be on tobramycin rather than vancomycin. I will discuss this with nurse practitioner Edgar and we should also repeat cultu res of his drainage. The patient is still in the Emergency Room, so I will discuss the case with Dr. Mei. Dictated By: GRISELDA SANTIZO MD, JD/TARYN Conf#: [id number] DID#: [id number]
[2019-03-23 02:00] VITALS: BP 116/70; PULSE 66; RESP 19
[2019-03-23 07:57] VITALS: BP 123/77; PULSE 62; RESP 18
[2019-03-23] MEDS: ENOXAPARIN 40 MG/0.4 ML SYG SC SCH (09:35)
[2019-03-23] MEDS: FERROUS FUMARATE (SR) TAB PO SCH ×2 (09:35→22:37)
--- NOTE | 2019-03-23 10:42 | PN ---
Date/Time of Note Date/Time of Note DATE: 03/23/19 TIME: 10:39 Assessment/Plan Lines/Catheters IV Catheter Type (from Nrs): Saline Lock Assessment/Plan Chief Complaint/Hosp Course 1. Splenic abscess, leukocytosis, lactic acidosis s/p IR drain with revision of IR drain due to malposition re-presents with persistent abscess; drain with mod output -Continue IV fluids -Continue Abx per ID -pain control> non-narcotics -supportive -continue drain- flush q shift -If not improving may need to consider new drains or splenectomy 2. Recent bacteremia with ESBL and Cytrobacter s/p abx 3. Anemia stable 4. BMI 33>28 -diet/exercise optimization 5. Leukocytosis: improving -as above Thank you. Patient seen and examined in collaboration with Dr. Yuriy Wu. Subjective 24 Hr Interval Summary No abdominal pain. Continues to have drainage from catheter splenic drainage. No fevers, chills, sob, congested cough, cp, palpitations, metz, dizziness, fiorella sea, vomiting, diarrhea, dysuria. Exam/Review of Systems Vital Signs Vitals Vital Signs Date Temp Pulse Resp B/P (MAP) Pulse Ox O2 O2 Flow FiO2 Time Delivery Rate 03/23/19 98.3 62 18 123/77 97 07:57 (92) 03/22/19 Room Air 18:00 Intake and Output 03/22/19 03/22/19 03/23/19 1515:00 23:00 07:00 IntakeIntake Total 1412.5 ml 800 ml BalanceBalance 1412.5 ml 800 ml Exam Free Text/Dictation Constitutional: alert, oriented, overweight Psych: anxiety; No confusion Head: normocephalic, atraumatic Eyes: nl conjunctiva, EOMI, PERRL; No icteric ENMT: nl external ears & nose, nl lips & teeth Neck: supple, non-tender; No jvd Respiratory: normal air movement; No labored breathing, No wheezing Cardiovascular: regular rate and rhythm; No edema Gastrointestinal: soft, distended, minimal tender (Left abdomen, mostly upper); left-sided drain No rebound or guarding Musculoskeletal: No nl gait and stance, No joint tenderness Extremities: normal pulses; No calf tenderness, No edema Neurological: nl mental status, nl speech Skin: nl turgor; No rash or lesions, No diaphoresis Lymph: nl lymph nodes Results Result Diagram: 03/23/19 0607 03/23/19 0607 BRUNO SALDANA NP Mar 23, 2019 10:42
[2019-03-23] MEDS: DOCUSATE SODIUM 100 MG CAP PO SCH ×2 (14:39→22:37)
--- NOTE | 2019-03-23 14:57 | PN ---
Date/Time of Note Date/Time of Note DATE: 03/23/19 TIME: 14:56 Assessment/Plan VTE Prophylaxis Risk score (from Ns)>0 risk: 4 SCD applied (from Ns): Yes Pharmacological prophylaxis: LMWH Lines/Catheters IV Catheter Type (from [facility]): Saline Lock Assessment/Plan Hospital Course SUBJECTIVE: Remains afebrile. OBJECTIVE: Physical Exam General: This is a 53 year-old male lying in bed in no apparent distress. HEENT: Normocephalic, atraumatic. Eyes: Anicteric sclerae, conjunctivae clear. ENT: Nasal septum midline, oral mucosa moist. Neck supple, no JVD noticed. Respiratory: Bilaterally clear breath sounds. No use of accessory muscles of respiration. No adventitious breath sounds. Cardiovascular: S1, S2 heard. Regular rate and rhythm. Abdomen: Soft and nondistended. LUQ drain with brown colored fluid draining out. Bowel sounds positive in all 4 quadrants. Genitourinary: Deferred. Extremities: No cyanosis, no clubbing, no edema. Peripheral pulses palpable. Neurologic: Cranial nerves II through XII grossly intact. The patient is awake, alert, and oriented. Skin: Normal skin turgor. No skin rashes. Labs & Vitals per chart ASSESSMENT & PLAN 53-year-old male with comorbidities including iron deficiency anemia and splenic abscess status post percutaneous drainage on 03/05/2019, was discharged home on 03/14/2019 with a drain in place for outpatient follow-up, who had returned back to the emergency room on 03/22/2019 because of inability to get a repeat CT scan done in a timely fashion. 1. Splenic abscess. Status post CT-guided percutaneous drainage of splenic fluid collection on 03/05/2019. Fluid culture from 03/05/19 showed Pantoea agglomerans and Citrobacter koseri. Latest CT scan showing fluid collection measuring 9.8 x 4.3 cm. On antibiotics as per ID. 2. Left lower lobe infiltrate/atelectasis with a left sided pleural effusion. Most probably secondary to #1. Continue antimicrobials as per ID. Encourage incentive spirometry. 3. Iron deficiency. Continue iron supplements. 4. Fluids, electrolytes, and nutrition. Regular diet. 5. DVT prophylaxis. Subcutaneous Lovenox. 6. Plan. Continue antimicrobials as per ID. Await clinical improvement. The patient was seen in collaboration with Dr. Goldman. Result Diagram: 03/23/19 0607 03/23/19 0607 Results 24hrs Laboratory Tests Test 03/22/19 16:44 03/23/19 06:07 POC Venous Lactate 2.3 *H White Blood Count 10.2 # Red Blood Count 4.54 L Hemoglobin 11.3 L Hematocrit 36.4 L Mean Corpuscular Volume 80.2 L Mean Corpuscular Hemoglobin 24.9 L Mean Corpuscular Hemoglobin Concent 31.0 L Red Cell Distribution Width 25.0 H Platelet Count 205 Mean Platelet Volume 10.4 Immature Granulocytes % 0.500 H Neutrophils % 85.9 H Lymphocytes % 6.7 L Monocytes % 4.5 Eosinophils % 2.1 Basophils % 0.3 Nucleated Red Blood Cells % 0.0 Immature Granulocytes # 0.050 H Neutrophils # 8.7 H Lymphocytes # 0.7 L Monocytes # 0.5 Eosinophils # 0.2 Basophils # 0.0 Nucleated Red Blood Cells # 0.0 Sodium Level 142 Potassium Level 3.8 Chloride Level 107 Carbon Dioxide Level 26 Anion Gap 9 Blood Urea Nitrogen 16 Creatinine 0.75 Est Glomerular Filtrat Rate mL/min > 60 Glucose Level 85 Calcium Level 9.2 Phosphorus Level 3.9 Magnesium Level 1.7 Total Bilirubin 0.8 Direct Bilirubin 0.00 Indirect Bilirubin 0.8 Aspartate Amino Transf (AST/SGOT) 31 Alanine Aminotransferase (ALT/SGPT) 67 Alkaline Phosphatase 73 Total Protein 6.4 Albumin 3.3 Globulin 3.10 Albumin/Globulin Ratio 1.06 Exam/Review of Systems Exam Vitals Vital Signs Date Temp Pulse Resp B/P (MAP) Pulse Ox O2 O2 Flow FiO2 Time Delivery Rate 03/23/19 98.3 62 18 123/77 97 07:57 (92) 03/22/19 Room Air 18:00 Intake and Output 03/22/19 03/22/19 03/23/19 1515:00 23:00 07:00 IntakeIntake Total 1412.5 ml 800 ml BalanceBalance 1412.5 ml 800 ml Results Results 24hrs Laboratory Tests Test 03/22/19 16:44 03/23/19 06:07 POC Venous Lactate 2.3 *H White Blood Count 10.2 # Red Blood Count 4.54 L Hemoglobin 11.3 L Hematocrit 36.4 L Mean Corpuscular Volume 80.2 L Mean Corpuscular Hemoglobin 24.9 L Mean Corpuscular Hemoglobin Concent 31.0 L Red Cell Distribution Width 25.0 H Platelet Count 205 Mean Platelet Volume 10.4 Immature Granulocytes % 0.500 H Neutrophils % 85.9 H Lymphocytes % 6.7 L Monocytes % 4.5 Eosinophils % 2.1 Basophils % 0.3 Nucleated Red Blood Cells % 0.0 Immature Granulocytes # 0.050 H Neutrophils # 8.7 H Lymphocytes # 0.7 L Monocytes # 0.5 Eosinophils # 0.2 Basophils # 0.0 Nucleated Red Blood Cells # 0.0 Sodium Level 142 Potassium Level 3.8 Chloride Level 107 Carbon Dioxide Level 26 Anion Gap 9 Blood Urea Nitrogen 16 Creatinine 0.75 Est Glomerular Filtrat Rate mL/min > 60 Glucose Level 85 Calcium Level 9.2 Phosphorus Level 3.9 Magnesium Level 1.7 Total Bilirubin 0.8 Direct Bilirubin 0.00 Indirect Bilirubin 0.8 Aspartate Amino Transf (AST/SGOT) 31 Alanine Aminotransferase (ALT/SGPT) 67 Alkaline Phosphatase 73 Total Protein 6.4 Albumin 3.3 Globulin 3.10 Albumin/Globulin Ratio 1.06 Medications Medication Current Medications IV Flush (NS 3 ml) 3 ml PER PROTOCOL IV ; Start 03/22/19 at 16:30 Acetaminophen (Tylenol Tab) 650 mg Q6H PRN PO .PAIN 1-3 OR TEMP; Start 03/22/19 at 16:30 Acetaminophen/ Hydrocodone Bitart ([place] (5/325)) 1 tab Q6H PRN PO .MOD PAIN 4- 6; Start 03/22/19 at 16:30 Morphine Sulfate (morphine) 2 mg Q4H PRN IV .SEVERE PAIN 7-10; Start 03/22/19 at 16:30 Bisacodyl (Dulcolax) 5 mg DAILY PRN PO .CONSTIPATION; Start 03/22/19 at 16:30 Enoxaparin Sodium (Lovenox) 40 mg DAILY SC Last administered on 03/23/19at 09:35; Admin Dose 40 MG; Start 03/23/19 at 09:00 Tobramycin (Tobramycin Iv Per Pharmacy) TOBRAMYCIN PER PHARMACY NOTE XX ; Start 03/22/19 at 16:30 Docusate Sodium/ Ferrous Fumarate (Anette-Sequels) 1 tab BID PO Last administered on 03/23/19at 09:35; Admin Dose 1 TAB; Start 03/22/19 at 21:00 Tobramycin 500 mg/ Dextrose 112.5 ml @ 103.75 mls/ hr Q24H IVPB Last administe red on 03/22/19at 21:48; Admin Dose 103.75 MLS/HR; Start 03/22/19 at 18:00 Miscellaneous Information (*Rx Drug Level Order Reminder*) TOBRAMYCIN TROUGH AT 1700 1700 ONCE XX ; Start 03/24/19 at 17:00; Stop 03/24/19 at 17:01 Docusate Sodium (Colace) 100 mg BID PO Last administered on 03/23/19at 14:39; Admin Dose 100 MG; Start 03/23/19 at 14:30 JIMENA STONE NP Mar 23, 2019 14:57
--- NOTE | 2019-03-23 16:59 | CONS ---
Assessment/Plan Assessment/Plan Hospital Course (Demo Recall) Alert feels good looks comfortable no fevers overnight WBC 10.2 neutrophils 85.9 BUN 16 creatinine 0.75 Blood cultures negative Antimicrobials: Tobramycin Fluid culture grew Pantoea and Citrobacter Allergy: Meropenem, causes rash Indwelling: Right chest Port-A-Cath, left-sided abdominal catheter Physical examination: This is well-nourished ill-appearing middle-aged man who is alert in no distress. Head atraumatic normocephalic neck is supple chest rise symmetrical breath sounds diminished to bases heart: S1-S2 abdomen obese soft bowel sounds present extremities with trace edema Assessment: 1. Splenic abscess status post CT-guided drainage with catheter placement 2. Left lower lobe consolidation; pneumonia versus atelectasis and small left pleural effusion. 3. Chronic anemia 4. History of E. coli ESBL and Citrobacter bacteremia on January 31, 2019 5. Status post open hemorrhoidectomy 01/27/19 Plan: Patient remains stable, continue antibiotics, follow surgical re commendations Consultation Date/Type/Reason Admit Date/Time Mar 22, 2019 at 14:17 Initial Consult Date 03/22/19 Type of Consult id Date/Time of Note DATE: 03/23/19 TIME: 16:55 Exam/Review of Systems Exam Vitals Vital Signs Date Temp Pulse Resp B/P (MAP) Pulse Ox O2 O2 Flow FiO2 Time Delivery Rate 03/23/19 98.3 62 18 123/77 97 07:57 (92) 03/22/19 Room Air 18:00 Intake and Output 03/22/19 03/22/19 03/23/19 1515:00 23:00 07:00 IntakeIntake Total 1412.5 ml 800 ml BalanceBalance 1412.5 ml 800 ml Results Result Diagram: 03/23/19 0607 03/23/19 0607 Results 24hrs Laboratory Tests Test 03/23/19 06:07 White Blood Count 10.2 # Red Blood Count 4.54 L Hemoglobin 11.3 L Hematocrit 36.4 L Mean Corpuscular Volume 80.2 L Mean Corpuscular Hemoglobin 24.9 L Mean Corpuscular Hemoglobin Concent 31.0 L Red Cell Distribution Width 25.0 H Platelet Count 205 Mean Platelet Volume 10.4 Immature Granulocytes % 0.500 H Neutrophils % 85.9 H Lymphocytes % 6.7 L Monocytes % 4.5 Eosinophils % 2.1 Basophils % 0.3 Nucleated Red Blood Cells % 0.0 Immature Granulocytes # 0.050 H Neutrophils # 8.7 H Lymphocytes # 0.7 L Monocytes # 0.5 Eosinophils # 0.2 Basophils # 0.0 Nucleated Red Blood Cells # 0.0 Sodium Level 142 Potassium Level 3.8 Chloride Level 107 Carbon Dioxide Level 26 Anion Gap 9 Blood Urea Nitrogen 16 Creatinine 0.75 Est Glomerular Filtrat Rate mL/min > 60 Glucose Level 85 Calcium Level 9.2 Phosphorus Level 3.9 Magnesium Level 1.7 Total Bilirubin 0.8 Direct Bilirubin 0.00 Indirect Bilirubin 0.8 Aspartate Amino Transf (AST/SGOT) 31 Alanine Aminotransferase (ALT/SGPT) 67 Alkaline Phosphatase 73 Total Protein 6.4 Albumin 3.3 Globulin 3.10 Albumin/Globulin Ratio 1.06 Medications Medication Current Medications IV Flush (NS 3 ml) 3 ml PER PROTOCOL IV ; Start 03/22/19 at 16:30 Acetaminophen (Tylenol Tab) 650 mg Q6H PRN PO .PAIN 1-3 OR TEMP; Start 03/22/19 at 16:30 Acetaminophen/ Hydrocodone Bitart ([place] (5/325)) 1 tab Q6H PRN PO .MOD PAIN 4- 6; Start 03/22/19 at 16:30 Morphine Sulfate (morphine) 2 mg Q4H PRN IV .SEVERE PAIN 7-10; Start 03/22/19 at 16:30 Bisacodyl (Dulcolax) 5 mg DAILY PRN PO .CONSTIPATION; Start 03/22/19 at 16:30 Enoxaparin Sodium (Lovenox) 40 mg DAILY SC Last administered on 03/23/19at 09:35; Admin Dose 40 MG; Start 03/23/19 at 09:00 Tobramycin (Tobramycin Iv Per Pharmacy) TOBRAMYCIN PER PHARMACY NOTE XX ; Start 03/22/19 at 16:30 Docusate Sodium/ Ferrous Fumarate (Anette-Sequels) 1 tab BID PO Last administered on 03/23/19at 09:35; Admin Dose 1 TAB; Start 03/22/19 at 21:00 Tobramycin 500 mg/ Dextrose 112.5 ml @ 103.75 mls/ hr Q24H IVPB Last administered on 03/22/19at 21:48; Admin Dose 103.75 MLS/HR; Start 03/22/19 at 18:00 Miscellaneous Information (*Rx Drug Level Order Reminder*) TOBRAMYCIN TROUGH AT 1700 1700 ONCE XX ; Start 03/24/19 at 17:00; Stop 03/24/19 at 17:01 Docusate Sodium (Colace) 100 mg BID PO Last administered on 03/23/19at 14:39; Admin Dose 100 MG; Start 03/23/19 at 14:30 JAYRO SANTIAGO DIE DESIGNER Mar 23, 2019 16:59
[2019-03-23] MEDS: TOBRAMYCIN 500 MG in DEXTROSE 5% 100 ML IVPB SCH (17:40)
[2019-03-23 20:00] VITALS: BP 117/78; PULSE 77; RESP 18
[2019-03-24 02:55] VITALS: BP 114/74; PULSE 68; RESP 16
[2019-03-24 07:30] VITALS: BP 130/82; PULSE 75; RESP 20
[2019-03-24] MEDS: DOCUSATE SODIUM 100 MG CAP PO SCH ×2 (09:09→21:02)
[2019-03-24] MEDS: FERROUS FUMARATE (SR) TAB PO SCH ×2 (09:09→21:02)
[2019-03-24] MEDS: ENOXAPARIN 40 MG/0.4 ML SYG SC SCH (09:10)
--- NOTE | 2019-03-24 09:55 | PN ---
Date/Time of Note Date/Time of Note DATE: 03/24/19 TIME: 09:53 Assessment/Plan Lines/Catheters IV Catheter Type (from Nrs): Saline Lock Assessment/Plan Chief Complaint/Hosp Course 1. Splenic abscess, leukocytosis, lactic acidosis s/p IR drain with revision of IR drain due to malposition re-presents with persistent abscess; drain increasing output -Continue IV fluids -Continue Abx per ID -pain control> non-narcotics -supportive -continue drain- flush q shift -Repeat imaging in a few days -If not improving may need to consider new drains or splenectomy 2. Recent bacteremia with ESBL and Cytrobacter s/p abx 3. Anemia stable 4. BMI 33>28 -diet/exercise optimization 5. Leukocytosis: Resolved -as above Thank you. Patient seen and examined in collaboration with Dr. Yuriy Wu. Subjective 24 Hr Interval Summary Continues to have large amount of drainage from pigtail drain. No fevers, chills, sob, congested cough, cp, palpitations, metz, dizziness, nausea, vomiting, diarrhea, dysuria. Exam/Review of Systems Vital Signs Vitals Vital Signs Date Temp Pulse Resp B/P (MAP) Pulse Ox O2 O2 Flow FiO2 Time Delivery Rate 03/24/19 98.4 75 20 130/82 98 07:30 (98) 03/22/19 Room Air 18:00 Intake and Output 03/23/19 03/23/19 03/24/19 1515:00 23:00 07:00 IntakeIntake Total 1712.5 ml OutputOutput Total 40 ml 640 ml BalanceBalance -40 ml 1712.5 ml -640 ml Exam Free Text/Dictation Constitutional: alert, oriented, overweight Psych: anxiety; No confusion Head: normocephalic, atraumatic Eyes: nl conjunctiva, EOMI, PERRL; No icteric ENMT: nl external ears & nose, nl lips & teeth Neck: supple, non-tender; No jvd Respiratory: normal air movement; No labored breathing, No wheezing Cardiovascular: regular rate and rhythm; No edema Gastrointestinal: soft, distended, minimal tender (Left abdomen, mostly upper); left-sided drain No rebound or guarding Musculoskeletal: No nl gait and stance, No joint tenderness Extremities: normal pulses; No calf tenderness, No edema Neurological: nl mental status, nl speech Skin: nl turgor; No rash or lesions, No diaphoresis Lymph: nl lymph nodes Results Result Diagram: 03/24/19 0644 03/24/19 0644 BRUNO SALDANA NP Mar 24, 2019 09:55
--- NOTE | 2019-03-24 11:18 | CONS ---
Assessment/Plan Assessment/Plan Hospital Course (Demo Recall) No acute events, afebrile Blood cultures negative Antimicrobials: Tobramycin Fluid culture grew Pantoea and Citrobacter Allergy: Meropenem, causes rash Indwelling: Right chest Port-A-Cath, left-sided abdominal catheter Physical examination: This is well-nourished ill-appearing middle-aged man who is alert in no distress. Head atraumatic normocephalic neck is supple chest rise symmetrical breath sounds diminished to bases heart: S1-S2 abdomen obese soft bowel sounds present extremities with trace edema Assessment: 1. Splenic abscess status post CT-guided drainage with catheter placement 2. Left lower lobe consolidation; pneumonia versus atelectasis and small left pleural effusion. 3. Chronic anemia 4. History of E. coli ESBL and Citrobacter bacteremia on January 31, 2019 5. Status post open hemorrhoidectomy 01/27/19 6. S/p leukocytosis on admission Plan: Stable, continue antibiotics, surgical recommendations noted==> repeat CT scan in a couple days, poss another drain Consultation Date/Type/Reason Admit Date/Time Mar 22, 2019 at 14:17 Initial Consult Date 03/22/19 Type of Consult id Date/Time of Note DATE: 03/24/19 TIME: 11:17 Exam/Review of Systems Exam Vitals Vital Signs Date Temp Pulse Resp B/P (MAP) Pulse Ox O2 O2 Flow FiO2 Time Delivery Rate 03/24/19 98.4 75 20 130/82 98 07:30 (98) 03/22/19 Room Air 18:00 Intake and Output 03/23/19 03/23/19 03/24/19 1515:00 23:00 07:00 IntakeIntake Total 1712.5 ml OutputOutput Total 40 ml 640 ml BalanceBalance -40 ml 1712.5 ml -640 ml Results Result Diagram: 03/24/19 0644 03/24/19 0644 Results 24hrs Laboratory Tests Test 03/24/19 06:44 White Blood Count 6.9 # Red Blood Count 4.54 L Hemoglobin 11.5 L Hematocrit 36.1 L Mean Corpuscular Volume 79.5 L Mean Corpuscular Hemoglobin 25.3 L Mean Corpuscular Hemoglobin Concent 31.9 L Red Cell Distribution Width 25.2 H Platelet Count 155 # Mean Platelet Volume 10.1 Immature Granulocytes % 0.400 Neutrophils % 80.3 H Lymphocytes % 10.6 L Monocytes % 4.8 Eosinophils % 3.6 Basophils % 0.3 Nucleated Red Blood Cells % 0.0 Immature Granulocytes # 0.030 Neutrophils # 5.5 Lymphocytes # 0.7 L Monocytes # 0.3 Eosinophils # 0.3 Basophils # 0.0 Nucleated Red Blood Cells # 0.0 Sodium Level 140 Potassium Level 3.3 L Chloride Level 104 Carbon Dioxide Level 29 Anion Gap 7 Blood Urea Nitrogen 19 Creatinine 0.71 Est Glomerular Filtrat Rate mL/min > 60 Glucose Level 92 Calcium Level 9.0 Phosphorus Level 3.9 Magnesium Level 1.7 Medications Medication Current Medications IV Flush (NS 3 ml) 3 ml PER PROTOCOL IV ; Start 03/22/19 at 16:30 Acetaminophen (Tylenol Tab) 650 mg Q6H PRN PO .PAIN 1-3 OR TEMP; Start 03/22/19 at 16:30 Acetaminophen/ Hydrocodone Bitart ([place] (5/325)) 1 tab Q6H PRN PO .MOD PAIN 4- 6; Start 03/22/19 at 16:30 Morphine Sulfate (morphine) 2 mg Q4H PRN IV .SEVERE PAIN 7-10; Start 03/22/19 at 16:30 Bisacodyl (Dulcolax) 5 mg DAILY PRN PO .CONSTIPATION; Start 03/22/19 at 16:30 Enoxaparin Sodium (Lovenox) 40 mg DAILY SC Last administered on 03/24/19at 09:10; Admin Dose 40 MG; Start 03/23/19 at 09:00 Tobramycin (Tobramycin Iv Per Pharmacy) TOBRAMYCIN PER PHARMACY NOTE XX ; Start 03/22/19 at 16:30 Docusate Sodium/ Ferrous Fumarate (Anette-Sequels) 1 tab BID PO Last administered on 03/24/19at 09:09; Admin Dose 1 TAB; Start 03/22/19 at 21:00 Tobramycin 500 mg/ Dextrose 112.5 ml @ 103.75 mls/ hr Q24H IVPB Last administered on 03/23/19at 17:40; Admin Dose 103.75 MLS/HR; Start 03/22/19 at 18:00 Miscellaneous Information (*Rx Drug Level Order Reminder*) TOBRAMYCIN TROUGH AT 1700 1700 ONCE XX ; Start 7/10/19 at 17:00; Stop 03/24/19 at 17:01 Docusate Sodium (Colace) 100 mg BID PO Last administered on 03/24/19at 09:09; Admin Dose 100 MG; Start 03/23/19 at 14:30 JAYRO SANTIAGO NP Mar 24, 2019 11:18
[2019-03-24] MEDS ORDERED: POTASSIUM CHLORIDE (SR) 20 MEQ TAB PO STA (12:42)
[2019-03-24] MEDS ORDERED: MAGNESIUM SULFATE 2 GM/50 ML 50 ML IVPB ONE (13:30)
[2019-03-24 14:00] VITALS: BP 115/76; PULSE 98; RESP 20
--- NOTE | 2019-03-24 14:57 | PN ---
Date/Time of Note Date/Time of Note DATE: 03/24/19 TIME: 14:56 Assessment/Plan VTE Prophylaxis Risk score (from Ns)>0 risk: 3 SCD applied (from Ns): Yes Pharmacological prophylaxis: LMWH Lines/Catheters IV Catheter Type (from [facility]): Saline Lock Assessment/Plan Hospital Course SUBJECTIVE: Remains afebrile. OBJECTIVE: Physical Exam General: This is a 53 year-old male lying in bed in no apparent distress. HEENT: Normocephalic, atraumatic. Eyes: Anicteric sclerae, conjunctivae clear. ENT: Nasal septum midline, oral mucosa moist. Neck supple, no JVD noticed. Respiratory: Bilaterally clear breath sounds. No use of accessory muscles of respiration. No adventitious breath sounds. Cardiovascular: S1, S2 heard. Regular rate and rhythm. Abdomen: Soft and nondistended. LUQ drain with brown colored fluid draining out. Bowel sounds positive in all 4 quadrants. Genitourinary: Deferred. Extremities: No cyanosis, no clubbing, no edema. Peripheral pulses palpable. Neurologic: Cranial nerves II through XII grossly intact. The patient is awake, alert, and oriented. Skin: Normal skin turgor. No skin rashes. Labs & Vitals per chart ASSESSMENT & PLAN 53-year-old male with comorbidities including iron deficiency anemia and splenic abscess status post percutaneous drainage on 03/05/2019, was discharged home on 03/14/2019 with a drain in place for outpatient follow-up, who had returned back to the emergency room on 03/22/2019 because of inability to get a repeat CT scan done in a timely fashion. 1. Splenic abscess. Status post CT-guided percutaneous drainage of splenic fluid collection on 03/05/2019. Fluid culture from 03/05/19 showed Pantoea agglomerans and Citrobacter koseri. Latest CT scan showing fluid collection measuring 9.8 x 4.3 cm. On antibiotics as per ID. 2. Left lower lobe infiltrate/atelectasis with a left sided pleural effusion. Most probably secondary to #1. Continue antimicrobials as per ID. Encourage incentive spirometry. 3. Iron deficiency. Continue iron supplements. 4. Fluids, electrolytes, and nutrition. Regular diet. 5. DVT prophylaxis. Subcutaneous Lovenox. 6. Plan. Continue antimicrobials as per ID. Await clinical improvement. The patient was seen in collaboration with Dr. Goldman. Result Diagram: 03/24/19 0644 03/24/19 0644 Results 24hrs Laboratory Tests Test 03/24/19 06:44 White Blood Count 6.9 # Red Blood Count 4.54 L Hemoglobin 11.5 L Hematocrit 36.1 L Mean Corpuscular Volume 79.5 L Mean Corpuscular Hemoglobin 25.3 L Mean Corpuscular Hemoglobin Concent 31.9 L Red Cell Distribution Width 25.2 H Platelet Count 155 # Mean Platelet Volume 10.1 Immature Granulocytes % 0.400 Neutrophils % 80.3 H Lymphocytes % 10.6 L Monocytes % 4.8 Eosinophils % 3.6 Basophils % 0.3 Nucleated Red Blood Cells % 0.0 Immature Granulocytes # 0.030 Neutrophils # 5.5 Lymphocytes # 0.7 L Monocytes # 0.3 Eosinophils # 0.3 Basophils # 0.0 Nucleated Red Blood Cells # 0.0 Sodium Level 140 Potassium Level 3.3 L Chloride Level 104 Carbon Dioxide Level 29 Anion Gap 7 Blood Urea Nitrogen 19 Creatinine 0.71 Est Glomerular Filtrat Rate mL/min > 60 Glucose Level 92 Calcium Level 9.0 Phosphorus Level 3.9 Magnesium Level 1.7 Exam/Review of Systems Exam Vitals Vital Signs Date Temp Pulse Resp B/P (MAP) Pulse Ox O2 O2 Flow FiO2 Time Delivery Rate 03/24/19 98.4 75 20 130/82 98 07:30 (98) 03/22/19 Room Air 18:00 Intake and Output 03/23/19 03/23/19 03/24/19 1515:00 23:00 07:00 IntakeIntake Total 1712.5 ml OutputOutput Total 40 ml 640 ml BalanceBalance -40 ml 1712.5 ml -640 ml Results Results 24hrs Laboratory Tests Test 03/24/19 06:44 White Blood Count 6.9 # Red Blood Count 4.54 L Hemoglobin 11.5 L Hematocrit 36.1 L Mean Corpuscular Volume 79.5 L Mean Corpuscular Hemoglobin 25.3 L Mean Corpuscular Hemoglobin Concent 31.9 L Red Cell Distribution Width 25.2 H Platelet Count 155 # Mean Platelet Volume 10.1 Immature Granulocytes % 0.400 Neutrophils % 80.3 H Lymphocytes % 10.6 L Monocytes % 4.8 Eosinophils % 3.6 Basophils % 0.3 Nucleated Red Blood Cells % 0.0 Immature Granulocytes # 0.030 Neutrophils # 5.5 Lymphocytes # 0.7 L Monocytes # 0.3 Eosinophils # 0.3 Basophils # 0.0 Nucleated Red Blood Cells # 0.0 Sodium Level 140 Potassium Level 3.3 L Chloride Level 104 Carbon Dioxide Level 29 Anion Gap 7 Blood Urea Nitrogen 19 Creatinine 0.71 Est Glomerular Filtrat Rate mL/min > 60 Glucose Level 92 Calcium Level 9.0 Phosphorus Level 3.9 Magnesium Level 1.7 Medications Medication Current Medications IV Flush (NS 3 ml) 3 ml PER PROTOCOL IV ; Start 03/22/19 at 16:30 Acetaminophen (Tylenol Tab) 650 mg Q6H PRN PO .PAIN 1-3 OR TEMP; Start 03/22/19 at 16:30 Acetaminophen/ Hydrocodone Bitart ([place] (5/325)) 1 tab Q6H PRN PO .MOD PAIN 4- 6; Start 03/22/19 at 16:30 Morphine Sulfate (morphine) 2 mg Q4H PRN IV .SEVERE PAIN 7-10; Start 03/22/19 at 16:30 Bisacodyl (Dulcolax) 5 mg DAILY PRN PO .CONSTIPATION; Start 03/22/19 at 16:30 Enoxaparin Sodium (Lovenox) 40 mg DAILY SC Last administered on 03/24/19at 09:10; Admin Dose 40 MG; Start 03/23/19 at 09:00 Tobramycin (Tobramycin Iv Per Pharmacy) TOBRAMYCIN PER PHARMACY NOTE XX ; Start 03/22/19 at 16:30 Docusate Sodium/ Ferrous Fumarate (Anette-Sequels) 1 tab BID PO Last administered on 03/24/19at 09:09; Admin Dose 1 TAB; Start 03/22/19 at 21:00 Tobramycin 500 mg/ Dextrose 112.5 ml @ 103.75 mls/ hr Q24H IVPB Last administered on 03/23/19at 17:40; Admin Dose 103.75 MLS/HR; Start 03/22/19 at 18:00 Miscellaneous Information (*Rx Drug Level Order Reminder*) TOBRAMYCIN TROUGH AT 1700 1700 ONCE XX ; Start 03/24/19 at 17:00; Stop 03/24/19 at 17:01 Docusate Sodium (Colace) 100 mg BID PO Last administered on 03/24/19at 09:09; Ad min Dose 100 MG; Start 03/23/19 at 14:30 Magnesium Sulfate 50 ml @ 25 mls/hr ONCE ONCE IVPB Last administered on 03/24/19at 13:21; Admin Dose 25 MLS/HR; Start 03/24/19 at 13:30; Stop 03/24/19 at 15:29 JIMENA STONE NP Mar 24, 2019 14:57
[2019-03-24] MEDS ORDERED: LACTULOSE 30ML CUP PO ONE (16:00)
[2019-03-24] MEDS: TOBRAMYCIN 500 MG in DEXTROSE 5% 100 ML IVPB SCH (18:12)
[2019-03-24 19:30] VITALS: BP 116/81; PULSE 109; RESP 16
[2019-03-25 01:54] VITALS: BP 111/73; PULSE 74; RESP 18
[2019-03-25 08:00] VITALS: BP 134/62; PULSE 86; RESP 16
[2019-03-25] MEDS: ENOXAPARIN 40 MG/0.4 ML SYG SC SCH (10:22)
[2019-03-25] MEDS: DOCUSATE SODIUM 100 MG CAP PO SCH ×2 (10:23→21:18)
[2019-03-25] MEDS: FERROUS FUMARATE (SR) TAB PO SCH ×2 (10:23→21:18)
--- NOTE | 2019-03-25 12:21 | CONS ---
Assessment/Plan Assessment/Plan Hospital Course (Demo Recall) No acute events overnight, looks comfortable, afebrile Blood cultures negative Antimicrobials: Tobramycin Fluid culture grew Pantoea and Citrobacter Allergy: Meropenem, causes rash Indwelling: Right chest Port-A-Cath, left-sided abdominal catheter Physical examination: This is well-nourished ill-appearing middle-aged man who is alert in no distress. Head atraumatic normocephalic neck is supple chest rise symmetrical breath sounds diminished to bases heart: S1-S2 abdomen obese soft bowel sounds present extremities with trace edema Assessment: 1. Splenic abscess status post CT-guided drainage with catheter placement 2. Left lower lobe consolidation; pneumonia versus atelectasis and small left pleural effusion. 3. Chronic anemia 4. History of E. coli ESBL and Citrobacter bacteremia on January 31, 2019 5. Status post open hemorrhoidectomy 01/27/19 6. S/p leukocytosis on admission Plan: Remains stable, continue antibiotics, f/u surgical recommendations noted==> pending repeat CT scan Consultation Date/Type/Reason Admit Date/Time Mar 22, 2019 at 14:17 Initial Consult Date 03/22/19 Type of Consult id Date/Time of Note DATE: 03/25/19 TIME: 12:20 Exam/Review of Systems Exam Vitals Vital Signs Date Temp Pulse Resp B/P (MAP) Pulse Ox O2 O2 Flow FiO2 Time Delivery Rate 03/25/19 98.9 86 16 134/62 96 08:00 (86) 03/25/19 Room Air 01:54 Intake and Output 03/24/19 03/24/19 03/25/19 1515:00 23:00 07:00 IntakeIntake Total 240 ml 99 ml OutputOutput Total 50 ml 20 ml BalanceBalance 240 ml 49 ml -20 ml Results Result Diagram: 03/25/19 0628 03/25/19 0628 Results 24hrs Laboratory Tests Test 03/24/19 17:09 03/25/19 06:28 Tobramycin Level Trough 1.4 White Blood Count 5.7 Red Blood Count 4.21 L Hemoglobin 10.7 L Hematocrit 33.7 L Mean Corpuscular Volume 80.0 L Mean Corpuscular Hemoglobin 25.4 L Mean Corpuscular Hemoglobin Concent 31.8 L Red Cell Distribution Width 25.2 H Platelet Count 149 Mean Platelet Volume 10.5 H Immature Granulocytes % 0.400 Neutrophils % 76.6 Lymphocytes % 11.9 L Monocytes % 6.0 Eosinophils % 4.9 Basophils % 0.2 Nucleated Red Blood Cells % 0.0 Immature Granulocytes # 0.020 Neutrophils # 4.4 Lymphocytes # 0.7 L Monocytes # 0.3 Eosinophils # 0.3 Basophils # 0.0 Nucleated Red Blood Cells # 0.0 Sodium Level 139 Potassium Level 3.6 Chloride Level 104 Carbon Dioxide Level 27 Anion Gap 8 Blood Urea Nitrogen 20 Creatinine 0.70 Est Glomerular Filtrat Rate mL/min > 60 Glucose Level 104 Calcium Level 8.7 Phosphorus Level 3.2 Magnesium Level 1.9 Medications Medication Current Medications IV Flush (NS 3 ml) 3 ml PER PROTOCOL IV ; Start 03/22/19 at 16:30 Acetaminophen (Tylenol Tab) 650 mg Q6H PRN PO .PAIN 1-3 OR TEMP; Start 03/22/19 at 16:30 Acetaminophen/ Hydrocodone Bitart ([place] (5/325)) 1 tab Q6H PRN PO .MOD PAIN 4- 6; Start 03/22/19 at 16:30 Morphine Sulfate (morphine) 2 mg Q4H PRN IV .SEVERE PAIN 7-10; Start 03/22/19 at 16:30 Bisacodyl (Dulcolax) 5 mg DAILY PRN PO .CONSTIPATION; Start 03/22/19 at 16:30 Enoxaparin Sodium (Lovenox) 40 mg DAILY SC Last administered on 03/25/19at 10:22; Admin Dose 40 MG; Start 03/23/19 at 09:00 Tobramycin (Tobramycin Iv Per Pharmacy) TOBRAMYCIN PER PHARMACY NOTE XX ; Start 03/22/19 at 16:30 Docusate Sodium/ Ferrous Fumarate (Anette-Sequels) 1 tab BID PO Last administered on 03/25/19at 10:23; Admin Dose 1 TAB; Start 03/22/19 at 21:00 Docusate Sodium (Colace) 100 mg BID PO Last administered on 03/25/19at 10:23; Admin Dose 100 MG; Start 03/23/19 at 14:30 Tobramycin 500 mg/ Dextrose 112.5 ml @ 112.5 mls/ hr Q36H IVPB ; Start 03/26/19 at 06:00 JAYRO SANTIAGO NP Mar 25, 2019 12:21
--- NOTE | 2019-03-25 13:43 | PN ---
Date/Time of Note Date/Time of Note DATE: 03/25/19 TIME: 13:43 Assessment/Plan VTE Prophylaxis Risk score (from Ns)>0 risk: 3 SCD applied (from Ns): Yes Pharmacological prophylaxis: LMWH Lines/Catheters IV [facility] (from [facility] Port-a-cath Assessment/Plan Hospital Course SUBJECTIVE: Remains afebrile. OBJECTIVE: Physical Exam General: This is a 53 year-old male lying in bed in no apparent distress. HEENT: Normocephalic, atraumatic. Eyes: Anicteric sclerae, conjunctivae clear. ENT: Nasal septum midline, oral mucosa moist. Neck supple, no JVD noticed. Respiratory: Bilaterally clear breath sounds. No use of accessory muscles of respiration. No adventitious breath sounds. Cardiovascular: S1, S2 heard. Regular rate and rhythm. Abdomen: Soft and nondistended. LUQ drain with brown colored fluid draining out. Bowel sounds positive in all 4 quadrants. Genitourinary: Deferred. Extremities: No cyanosis, no clubbing, no edema. Peripheral pulses palpable. Neurologic: Cranial nerves II through XII grossly intact. The patient is awake, alert, and oriented. Skin: Normal skin turgor. No skin rashes. Labs & Vitals per chart ASSESSMENT & PLAN 53-year-old male with comorbidities including iron deficiency anemia and splenic abscess status post percutaneous drainage on 03/05/2019, was discharged home on 03/14/2019 with a drain in place for outpatient follow-up, who had returned back to the emergency room on 03/22/2019 because of inability to get a repeat CT scan done in a timely fashion. 1. Splenic abscess. Status post CT-guided percutaneous drainage of splenic fluid collection on 03/05/2019. Fluid culture from 03/05/19 showed Pantoea agglomerans and Citrobacter koseri. Latest CT scan showing fluid collection measuring 9.8 x 4.3 cm. On antibiotics as per ID. 2. Left lower lobe infiltrate/atelectasis with a left sided pleural effusion. Most probably secondary to #1. Continue antimicrobials as per ID. Encourage incentive spirometry. 3. Iron deficiency. Continue iron supplements. 4. Fluids, electrolytes, and nutrition. Regular diet. 5. DVT prophylaxis. Subcutaneous Lovenox. 6. Plan. Continue antimicrobials as per ID. Await clinical improvement. The patient was seen in collaboration with Dr. Goldman. Result Diagram: 03/25/19 0628 03/25/19 0628 Results 24hrs Laboratory Tests Test 03/24/19 17:09 03/25/19 06:28 Tobramycin Level Trough 1.4 White Blood Count 5.7 Red Blood Count 4.21 L Hemoglobin 10.7 L Hematocrit 33.7 L Mean Corpuscular Volume 80.0 L Mean Corpuscular Hemoglobin 25.4 L Mean Corpuscular Hemoglobin Concent 31.8 L Red Cell Distribution Width 25.2 H Platelet Count 149 Mean Platelet Volume 10.5 H Immature Granulocytes % 0.400 Neutrophils % 76.6 Lymphocytes % 11.9 L Monocytes % 6.0 Eosinophils % 4.9 Basophils % 0.2 Nucleated Red Blood Cells % 0.0 Immature Granulocytes # 0.020 Neutrophils # 4.4 Lymphocytes # 0.7 L Monocytes # 0.3 Eosinophils # 0.3 Basophils # 0.0 Nucleated Red Blood Cells # 0.0 Sodium Level 139 Potassium Level 3.6 Chloride Level 104 Carbon Dioxide Level 27 Anion Gap 8 Blood Urea Nitrogen 20 Creatinine 0.70 Est Glomerular Filtrat Rate mL/min > 60 Glucose Level 104 Calcium Level 8.7 Phosphorus Level 3.2 Magnesium Level 1.9 Exam/Review of Systems Exam Vitals Vital Signs Date Temp Pulse Resp B/P (MAP) Pulse Ox O2 O2 Flow FiO2 Time Delivery Rate 03/25/19 98.9 86 16 134/62 96 08:00 (86) 03/25/19 Room Air 01:54 Intake and Output 03/24/19 03/24/19 03/25/19 1515:00 23:00 07:00 IntakeIntake Total 240 ml 99 ml OutputOutput Total 50 ml 20 ml BalanceBalance 240 ml 49 ml -20 ml Results Results 24hrs Laboratory Tests Test 03/24/19 17:09 03/25/19 06:28 Tobramycin Level Trough 1.4 White Blood Count 5.7 Red Blood Count 4.21 L Hemoglobin 10.7 L Hematocrit 33.7 L Mean Corpuscular Volume 80.0 L Mean Corpuscular Hemoglobin 25.4 L Mean Corpuscular Hemoglobin Concent 31.8 L Red Cell Distribution Width 25.2 H Platelet Count 149 Mean Platelet Volume 10.5 H Immature Granulocytes % 0.400 Neutrophils % 76.6 Lymphocytes % 11.9 L Monocytes % 6.0 Eosinophils % 4.9 Basophils % 0.2 Nucleated Red Blood Cells % 0.0 Immature Granulocytes # 0.020 Neutrophils # 4.4 Lymphocytes # 0.7 L Monocytes # 0.3 Eosinophils # 0.3 Basophils # 0.0 Nucleated Red Blood Cells # 0.0 Sodium Level 139 Potassium Level 3.6 Chloride Level 104 Carbon Dioxide Level 27 Anion Gap 8 Blood Urea Nitrogen 20 Creatinine 0.70 Est Glomerular Filtrat Rate mL/min > 60 Glucose Level 104 Calcium Level 8.7 Phosphorus Level 3.2 Magnesium Level 1.9 Medications Medication Current Medications IV Flush (NS 3 ml) 3 ml PER PROTOCOL IV ; Start 03/22/19 at 16:30 Acetaminophen (Tylenol Tab) 650 mg Q6H PRN PO .PAIN 1-3 OR TEMP; Start 03/22/19 at 16:30 Acetaminophen/ Hydrocodone Bitart ([place] (5/325)) 1 tab Q6H PRN PO .MOD PAIN 4- 6; Start 03/22/19 at 16:30 Morphine Sulfate (morphine) 2 mg Q4H PRN IV .SEVERE PAIN 7-10; Start 03/22/19 at 16:30 Bisacodyl (Dulcolax) 5 mg DAILY PRN PO .CONSTIPATION; Start 03/22/19 at 16:30 Enoxaparin Sodium (Lovenox) 40 mg DAILY SC Last administered on 03/25/19at 10:22; Admin Dose 40 MG; Start 03/23/19 at 09:00 Tobramycin (Tobramycin Iv Per Pharmacy) TOBRAMYCIN PER PHARMACY NOTE XX ; Start 03/22/19 at 16:30 Docusate Sodium/ Ferrous Fumarate (Anette-Sequels) 1 tab BID PO Last administered on 03/25/19at 10:23; Admin Dose 1 TAB; Start 03/22/19 at 21:00 Docusate Sodium (Colace) 100 mg BID PO Last administered on 03/25/19at 10:23; Admin Dose 100 MG; Start 03/23/19 at 14:30 Tobramycin 500 mg/ Dextrose 112.5 ml @ 112.5 mls/ hr Q36H IVPB ; Start 03/26/19 at 06:00 JIMENA STONE NP Mar 25, 2019 13:43
[2019-03-25 14:00] VITALS: BP 113/74; PULSE 79; RESP 24
--- NOTE | 2019-03-25 14:23 | PN ---
Date/Time of Note Date/Time of Note DATE: 03/25/19 TIME: 14:20 Assessment/Plan Lines/Catheters IV Catheter Type (from Nrs): Port-a-cath Assessment/Plan Chief Complaint/Hosp Course 1. Splenic abscess, leukocytosis, lactic acidosis s/p IR drain with revision of IR drain due to malposition re-presents with persistent abscess; drain increasing output -Continue IV fluids -Continue Abx per ID -pain control> non-narcotics -supportive -culture drain> will send today -continue drain- flush q shift -Repeat imaging in a few days -If not improving may need to consider new drains or splenectomy 2. Recent bacteremia with ESBL and Cytrobacter s/p abx 3. Anemia stable 4. BMI 33>28 -diet/exercise optimization 5. Leukocytosis: Resolved -as above Thank you. Patient seen and examined in collaboration with Dr. Yuriy Wu. Subjective 24 Hr Interval Summary Feels well.Continues to have good output from pigtail drain. No fevers, chills, sob, congested cough, cp, palpitations, metz, dizziness, nausea, vomiting, diarrhea, dysuria. Exam/Review of Systems Vital Signs Vitals Vital Signs Date Temp Pulse Resp B/P (MAP) Pulse Ox O2 O2 Flow FiO2 Time Delivery Rate 03/25/19 98.9 86 16 134/62 96 08:00 (86) 03/25/19 Room Air 01:54 Intake and Output 03/24/19 03/24/19 03/25/19 1414:59 22:59 06:59 IntakeIntake Total 240 ml 99 ml OutputOutput Total 50 ml 20 ml BalanceBalance 240 ml 49 ml -20 ml Exam Free Text/Dictation Constitutional: alert, oriented, overweight Psych: anxiety; No confusion Head: normocephalic, atraumatic Eyes: nl conjunctiva, EOMI, PERRL; No icteric ENMT: nl external ears & nose, nl lips & teeth Neck: supple, non-tender; No jvd Respiratory: normal air movement; No labored breathing, No wheezing Cardiovascular: regular rate and rhythm; No edema Gastrointestinal: soft, distended, minimal tender (Left abdomen, mostly upper); left-sided drain No rebound or guarding Musculoskeletal: No nl gait and stance, No joint tenderness Extremities: normal pulses; No calf tenderness, No edema Neurological: nl mental status, nl speech Skin: nl turgor; No rash or lesions, No diaphoresis Lymph: nl lymph nodes Results Result Diagram: 03/25/19 0628 03/25/19 0628 BRUNO SALDANA NP Mar 25, 2019 14:23
[2019-03-25] MEDS: BISACODYL (EC) 5 MG TAB PO PRN (17:44)
[2019-03-25 19:29] VITALS: BP 120/75; PULSE 88; RESP 20
[2019-03-26 01:57] VITALS: BP 115/76; PULSE 73; RESP 18
[2019-03-26] MEDS: TOBRAMYCIN 500 MG in DEXTROSE 5% 100 ML IVPB SCH (05:16)
[2019-03-26 08:01] VITALS: BP 106/66; PULSE 103; RESP 18
[2019-03-26] MEDS: DOCUSATE SODIUM 100 MG CAP PO SCH ×2 (09:39→20:15)
[2019-03-26] MEDS: FERROUS FUMARATE (SR) TAB PO SCH ×2 (09:39→20:15)
[2019-03-26] MEDS: ENOXAPARIN 40 MG/0.4 ML SYG SC SCH (09:40)
--- NOTE | 2019-03-26 11:54 | CONS ---
Assessment/Plan Assessment/Plan Hospital Course (Demo Recall) Awake, looks comfortable, afebrile Blood cultures negative Antimicrobials: Tobramycin Fluid culture grew Pantoea and Citrobacter Allergy: Meropenem, causes rash Indwelling: Right chest Port-A-Cath, left-sided abdominal catheter Physical examination: This is well-nourished ill-appearing middle-aged man who is alert in no distress. Head atraumatic normocephalic neck is supple c hest rise symmetrical breath sounds diminished to bases heart: S1-S2 abdomen obese soft bowel sounds present extremities with trace edema Assessment: 1. Splenic abscess status post CT-guided drainage with catheter placement 2. Left lower lobe consolidation; pneumonia versus atelectasis and small left pleural effusion. 3. Chronic anemia 4. History of E. coli ESBL and Citrobacter bacteremia on January 31, 2019 5. Status post open hemorrhoidectomy 01/27/19 6. S/p leukocytosis on admission Plan: Remains stable, US of spleen noted==< decreased abscess size, continue antibiotics, f/u repeat fluid cx, surgical rec-s Consultation Date/Type/Reason Admit Date/Time Mar 22, 2019 at 14:17 Initial Consult Date 03/22/19 Type of Consult id Date/Time of Note DATE: 03/26/19 TIME: 11:51 Exam/Review of Systems Exam Vitals Vital Signs Date Temp Pulse Resp B/P (MAP) Pulse Ox O2 O2 Flow FiO2 Time Delivery Rate 03/26/19 98.1 103 18 106/66 97 Room Air 08:01 (79) Intake and Output 03/25/19 03/25/19 03/26/19 1414:59 22:59 06:59 IntakeIntake Total 1040 ml 112.5 ml OutputOutput Total 5 ml 250 ml BalanceBalance 1035 ml -137.5 ml Results Result Diagram: 03/25/1962703/25/19627 Medications Medication Current Medications IV Flush (NS 3 ml) 3 ml PER PROTOCOL IV ; Start 03/22/19 at 16:30 Acetaminophen (Tylenol Tab) 650 mg Q6H PRN PO .PAIN 1-3 OR TEMP; Start 03/22/19 at 16:30 Acetaminophen/ Hydrocodone Bitart ([place] (5/325)) 1 tab Q6H PRN PO .MOD PAIN 4- 6; Start 03/22/19 at 16:30 Morphine Sulfate (morphine) 2 mg Q4H PRN IV .SEVERE PAIN 7-10 Last administered on 03/25/19 14:57; Admin Dose 2 MG; Start 03/22/19 at 16:30 Bisacodyl (Dulcolax) 5 mg DAILY PRN PO .CONSTIPATION Last administered on 03/25/19 17:44; Admin Dose 5 MG; Start 03/22/19 at 16:30 Enoxaparin Sodium (Lovenox) 40 mg DAILY SC Last administered on 03/26/19 09:40; Admin Dose 40 MG; Start 03/23/19 at 09:00 Tobramycin (Tobramycin Iv Per Pharmacy) TOBRAMYCIN PER PHARMACY NOTE XX ; Start 03/22/19 at 16:30 Docusate Sodium/ Ferrous Fumarate (Anette-Sequels) 1 tab BID PO Last administered on 03/26/19 09:39; Admin Dose 1 TAB; Start 03/22/19 at 21:00 Docusate Sodium (Colace) 100 mg BID PO Last administered on 03/26/19 09:39; Admin Dose 100 MG; Start 03/23/19 at 14:30 Tobramycin 500 mg/ Dextrose 112.5 ml @ 112.5 mls/ hr Q36H IVPB Last administered on 03/26/19 05:16; Admin Dose 112.5 MLS/HR; Start 03/26/19 at 06:00 JAYRO SANTIAGO NP Mar 26, 2019 11:54
--- NOTE | 2019-03-26 12:34 | PN ---
Date/Time of Note Date/Time of Note DATE: 03/26/19 TIME: 12:34 Assessment/Plan VTE Prophylaxis Risk score (from Ns)>0 risk: 5 SCD applied (from Nsg): Yes Pharmacological prophylaxis: LMWH Lines/Catheters IV Catheter Type (from [facility]): port-a-cath Assessment/Plan Hospital Course SUBJECTIVE: Remains afebrile. OBJECTIVE: Physical Exam General: This is a 53 year-old male lying in bed in no apparent distress. HEENT: Normocephalic, atraumatic. Eyes: Anicteric sclerae, conjunctivae clear. ENT: Nasal septum midline, oral mucosa moist. Neck supple, no JVD noticed. Respiratory: Bilaterally clear breath sounds. No use of accessory muscles of respiration. No adventitious breath sounds. Cardiovascular: S1, S2 heard. Regular rate and rhythm. Abdomen: Soft and nondistended. LUQ drain with brown colored fluid draining out. Bowel sounds positive in all 4 quadrants. Genitourinary: Deferred. Extremities: No cyanosis, no clubbing, no edema. Peripheral pulses palpable. Neurologic: Cranial nerves II through XII grossly intact. The patient is awake, alert, and oriented. Skin: Normal skin turgor. No skin rashes. Labs & Vitals per chart ASSESSMENT & PLAN 53-year-old male with comorbidities including iron deficiency anemia and splenic abscess status post percutaneous drainage on 03/05/2019, was discharged home on 03/14/2019 with a drain in place for outpatient follow-up, who had returned back to the emergency room on 03/22/2019 because of inability to get a repeat CT scan done in a timely fashion. 1. Splenic abscess. Status post CT-guided percutaneous drainage of splenic fluid collection on 03/05/2019. Fluid culture from 03/05/19 showed Pantoea agglomerans and Citrobacter koseri. Latest CT scan showing fluid collection measuring 9.8 x 4.3 cm. On antibiotics as per ID. 2. Left lower lobe infiltrate/atelectasis with a left sided pleural effusion. Most probably secondary to #1. Continue antimicrobials as per ID. Encourage incentive spirometry. 3. Iron deficiency. Continue iron supplements. 4. Fluids, electrolytes, and nutrition. Regular diet. 5. DVT prophylaxis. Subcutaneous Lovenox. 6. Plan. Continue antimicrobials as per ID. Await clinical improvement. The patient was seen in collaboration with Dr. Goldman. Result Diagram: 03/25/1928 03/25/19627 Exam/Review of Systems Exam Vitals Vital Signs Date Temp Pulse Resp B/P (MAP) Pulse Ox O2 O2 Flow FiO2 Time Delivery Rate 03/26/19 98.1 103 18 106/66 97 Room Air 08:01 (79) Intake and Output 03/25/19 03/25/19 03/26/19 1515:00 23:00 07:00 IntakeIntake Total 1040 ml 112.5 ml OutputOutput Total 5 ml 250 ml BalanceBalance 1035 ml -137.5 ml Medications Medication Current Medications IV Flush (NS 3 ml) 3 ml PER PROTOCOL IV ; Start 03/22/19 at 16:30 Acetaminophen (Tylenol Tab) 650 mg Q6H PRN PO .PAIN 1-3 OR TEMP; Start 03/22/19 at 16:30 Acetaminophen/ Hydrocodone Bitart ([place] (5/325)) 1 tab Q6H PRN PO .MOD PAIN 4- 6; Start 03/22/19 at 16:30 Morphine Sulfate (morphine) 2 mg Q4H PRN IV .SEVERE PAIN 7-10 Last administered on 03/25/19at 14:57; Admin Dose 2 MG; Start 03/22/19 at 16:30 Bisacodyl (Dulcolax) 5 mg DAILY PRN PO .CONSTIPATION Last administered on 03/25/19at 17:44; Admin Dose 5 MG; Start 03/22/19 at 16:30 Enoxaparin Sodium (Lovenox) 40 mg DAILY SC Last administered on 03/26/19at 09:40; Admin Dose 40 MG; Start 03/23/19 at 09:00 Tobramycin (Tobramycin Iv Per Pharmacy) TOBRAMYCIN PER PHARMACY NOTE XX ; Start 03/22/19 at 16:30 Docusate Sodium/ Ferrous Fumarate (Anette-Sequels) 1 tab BID PO Last administer ed on 03/26/19at 09:39; Admin Dose 1 TAB; Start 03/22/19 at 21:00 Docusate Sodium (Colace) 100 mg BID PO Last administered on 03/26/19at 09:39; Admin Dose 100 MG; Start 03/23/19 at 14:30 Tobramycin 500 mg/ Dextrose 112.5 ml @ 112.5 mls/ hr Q36H IVPB Last administered on 03/26/19at 05:16; Admin Dose 112.5 MLS/HR; Start 03/26/19 at 06:00 JIMENA STONE NP Mar 26, 2019 12:34
[2019-03-26 14:00] VITALS: BP 117/73; PULSE 96; RESP 18
--- NOTE | 2019-03-26 17:45 | PN ---
Date/Time of Note Date/Time of Note DATE: 03/26/19 TIME: 17:45 Assessment/Plan Lines/Catheters IV Catheter Type (from Nrsg): port-a-cath Assessment/Plan Chief Complaint/Hosp Course 1. Splenic abscess, leukocytosis, lactic acidosis s/p IR drain with revision of IR drain due to malposition re-presents with persistent abscess; drain productive; us:decreasing abscess size -Continue Abx per ID -pain control> non-narcotics -supportive -repeat cx pending sensis -continue drain- flush q shift -ok for dc from surgical standpoint. Will need HH for drain care, abx per ID and repeat US prior to following up in office (to follow in office in 1 week) 2. Recent bacteremia with ESBL and Cytrobacter s/p abx 3. Anemia stable 4. BMI 33>28 -diet/exercise optimization 5. Leukocytosis: Resolved -as above Thank you. Patient seen and examined in collaboration with Dr. Yuriy Wu. Subjective 24 Hr Interval Summary Some left flank discomfort. Drain continues to be productive. No fevers, chills, sob, congested cough, cp, palpitations, metz, dizziness, n/v/d/dysuria. Exam/Review of Systems Vital Signs Vitals Vital Signs Date Temp Pulse Resp B/P (MAP) Pulse Ox O2 O2 Flow FiO2 Time Delivery Rate 03/26/19 97.9 80 17 127/77 95 Room Air 20:00 (94) Intake and Output 03/25/19 03/25/19 03/26/19 1515:00 23:00 07:00 IntakeIntake Total 1040 ml 112.5 ml OutputOutput Total 5 ml 250 ml BalanceBalance 1035 ml -137.5 ml Exam Free Text/Dictation Constitutional: alert, oriented, overweight Psych: anxiety; No confusion Head: normocephalic, atraumatic Eyes: nl conjunctiva, EOMI, PERRL; No icteric ENMT: nl external ears & nose, nl lips & teeth Neck: supple, non-tender; No jvd Respiratory: normal air movement; No labored breathing, No wheezing Cardiovascular: regular rate and rhythm; No edema Gastrointestinal: soft, distended, minimal tender (Left abdomen, mostly upper); left-sided drain No rebound or guarding Musculoskeletal: No nl gait and stance, No joint tenderness Extremities: normal pulses; No calf tenderness, No edema Neurological: nl mental status, nl speech Skin: nl turgor; No rash or lesions, No diaphoresis Lymph: nl lymph nodes Results Result Diagram: 03/25/1962703/25/19627 BRUNO SALDANA NP Mar 26, 2019 17:45
[2019-03-26 20:00] VITALS: BP 127/77; PULSE 80; RESP 17
[2019-03-27 02:00] VITALS: BP 117/74; PULSE 65; RESP 18
[2019-03-27] MEDS: BISACODYL (EC) 5 MG TAB PO PRN (06:42)
[2019-03-27 08:27] VITALS: BP 118/78; PULSE 68; RESP 18
[2019-03-27] MEDS: ENOXAPARIN 40 MG/0.4 ML SYG SC SCH (09:09)
[2019-03-27] MEDS: DOCUSATE SODIUM 100 MG CAP PO SCH ×2 (09:10→21:46)
[2019-03-27] MEDS: FERROUS FUMARATE (SR) TAB PO SCH ×2 (09:10→21:46)
--- NOTE | 2019-03-27 13:23 | PN ---
Date/Time of Note Date/Time of Note DATE: 03/27/19 TIME: 13:23 Assessment/Plan Lines/Catheters IV Catheter Type (from Nrsg): port a cath Assessment/Plan Chief Complaint/Hosp Course 1. Splenic abscess, leukocytosis, lactic acidosis s/p IR drain with revision of IR drain due to malposition re-presents with persistent abscess; drain productive; us:decreasing abscess size ; repeat cx noted -Continue Abx per ID -pain control> non-narcotics if able -supportive -continue drain- flush q shift -ok for dc from surgical standpoint. Will need HH for drain care, abx per ID and repeat US prior to following up in office (to follow in office in 1 week) 2. Recent bacteremia with ESBL and Cytrobacter s/p abx 3. Anemia stable 4. BMI 33>28 -diet/exercise optimization 5. Leukocytosis: Resolved, now w mild leukopenia -as above Thank you. Patient seen and examined in collaboration with Dr. Yuriy Wu. Subjective 24 Hr Interval Summary No acute events. No fevers, chills, sob, congested cough, cp, palpitations, metz, dizziness, n/v/d/dysuria. Exam/Review of Systems Vital Signs Vitals Vital Signs Date Temp Pulse Resp B/P (MAP) Pulse Ox O2 O2 Flow FiO2 Time Delivery Rate 03/28/19 98.2 70 18 119/77 100 Room Air 08:35 (91) Intake and Output 03/27/19 03/27/19 03/28/19 1515:00 23:00 07:00 IntakeIntake Total 780 ml 452.5 ml OutputOutput Total 300 ml 20 ml 30 ml BalanceBalance 480 ml 432.5 ml -30 ml Exam Free Text/Dictation Constitutional: alert, oriented, overweight Psych: anxiety; No confusion Head: normocephalic, atraumatic Eyes: nl conjunctiva, EOMI, PERRL; No icteric ENMT: nl external ears & nose, nl lips & teeth Neck: supple, non-tender; No jvd Respiratory: normal air movement; No labored breathing, No wheezing Cardiovascular: regular rate and rhythm; No edema Gastrointestinal: soft, distended, minimal tender (Left flank); left-sided drain No rebound or guarding Musculoskeletal: No nl gait and stance, No joint tenderness Extremities: normal pulses; No calf tenderness, No edema Neurological: nl mental status, nl speech Skin: nl turgor; No rash or lesions, No diaphoresis Lymph: nl lymph nodes Results Result Diagram: 03/28/19 0454 03/28/19 0454 BRUNO SALDANA NP Mar 27, 2019 13:23
[2019-03-27 14:00] VITALS: BP 111/75; PULSE 75; RESP 18
--- NOTE | 2019-03-27 14:44 | PN ---
Date/Time of Note Date/Time of Note DATE: 03/27/19 TIME: 14:40 Assessment/Plan VTE Prophylaxis Risk score (from Ns)>0 risk: 4 SCD applied (from Ns): Yes Pharmacological prophylaxis: LMWH Lines/Catheters IV Catheter Type (from [facility]): port a cath Assessment/Plan Hospital Course SUBJECTIVE: Remains afebrile. OBJECTIVE: Physical Exam General: This is a 53 year-old male lying in bed in no apparent distress. HEENT: Normocephalic, atraumatic. Eyes: Anicteric sclerae, conjunctivae clear. ENT: Nasal septum midline, oral mucosa moist. Neck supple, no JVD noticed. Respiratory: Bilaterally clear breath sounds. No use of accessory muscles of respiration. No adventitious breath sounds. Cardiovascular: S1, S2 heard. Regular rate and rhythm. Abdomen: Soft and nondistended. LUQ drain with brown colored fluid draining out. Bowel sounds positive in all 4 quadrants. Genitourinary: Deferred. Extremities: No cyanosis, no clubbing, no edema. Peripheral pulses palpable. Neurologic: Cranial nerves II through XII grossly intact. The patient is awake, alert, and oriented. Skin: Normal skin turgor. No skin rashes. Labs & Vitals per chart ASSESSMENT & PLAN 53-year-old male with comorbidities including iron deficiency anemia and splenic abscess status post percutaneous drainage on 03/05/2019, was discharged home on 03/14/2019 with a drain in place for outpatient follow-up, who had returned back to the emergency room on 03/22/2019 because of inability to get a repeat CT scan done in a timely fashion. 1. Splenic abscess. Status post CT-guided percutaneous drainage of splenic fluid collection on 03/05/2019. Fluid culture from 03/05/19 showed Pantoea agglomerans and Citrobacter koseri. Latest CT scan showing fluid collection measuring 9.8 x 4.3 cm. On antibiotics as per ID. 2. Left lower lobe infiltrate/atelectasis with a left sided pleural effusion. Most probably secondary to #1. Continue antimicrobials as per ID. Encourage incentive spirometry. 3. Iron deficiency. Continue iron supplements. 4. Fluids, electrolytes, and nutrition. Regular diet. 5. DVT prophylaxis. Subcutaneous Lovenox. 6. Plan. Continue antimicrobials as per ID. Disposition: Plan is to discharge the patient home with home health arranged for drainage care and once ABX are finalized. The patient was seen in collaboration with Dr. Goldman. Result Diagram: 03/27/19 0557 03/27/19 0557 Results 24hrs Laboratory Tests Test 03/27/19 05:57 White Blood Count 5.0 Red Blood Count 4.34 L Hemoglobin 11.0 L Hematocrit 36.0 L Mean Corpuscular Volume 82.9 Mean Corpuscular Hemoglobin 25.3 L Mean Corpuscular Hemoglobin Concent 30.6 L Red Cell Distribution Width 25.2 H Platelet Count 127 L Mean Platelet Volume 10.4 Immature Granulocytes % 0.200 Neutrophils % 73.8 Lymphocytes % 14.1 L Monocytes % 6.5 Eosinophils % 5.2 Basophils % 0.2 Nucleated Red Blood Cells % 0.0 Immature Granulocytes # 0.010 Neutrophils # 3.7 Lymphocytes # 0.7 L Monocytes # 0.3 Eosinophils # 0.3 Basophils # 0.0 Nucleated Red Blood Cells # 0.0 Sodium Level 139 Potassium Level 3.3 L Chloride Level 101 Carbon Dioxide Level 31 Anion Gap 7 Blood Urea Nitrogen 13 Creatinine 0.63 Est Glomerular Filtrat Rate mL/min > 60 Glucose Level 105 Calcium Level 9.2 Phosphorus Level 3.5 Magnesium Level 1.8 Exam/Review of Systems Exam Vitals Vital Signs Date Temp Pulse Resp B/P (MAP) Pulse Ox O2 O2 Flow FiO2 Time Delivery Rate 03/27/19 98.1 68 18 118/78 97 Room Air 08:27 (91) Intake and Output 03/26/19 03/26/19 03/27/19 1515:00 23:00 07:00 IntakeIntake Total 900 ml OutputOutput Total 6 ml 20 ml 705 ml BalanceBalance -6 ml 880 ml -705 ml Results Results 24hrs Laboratory Tests Test 03/27/19 05:57 White Blood Count 5.0 Red Blood Count 4.34 L Hemoglobin 11.0 L Hematocrit 36.0 L Mean Corpuscular Volume 82.9 Mean Corpuscular Hemoglobin 25.3 L Mean Corpuscular Hemoglobin Concent 30.6 L Red Cell Distribution Width 25.2 H Platelet Count 127 L Mean Platelet Volume 10.4 Immature Granulocytes % 0.200 Neutrophils % 73.8 Lymphocytes % 14.1 L Monocytes % 6.5 Eosinophils % 5.2 Basophils % 0.2 Nucleated Red Blood Cells % 0.0 Immature Granulocytes # 0.010 Neutrophils # 3.7 Lymphocytes # 0.7 L Monocytes # 0.3 Eosinophils # 0.3 Basophils # 0.0 Nucleated Red Blood Cells # 0.0 Sodium Level 139 Potassium Level 3.3 L Chloride Level 101 Carbon Dioxide Level 31 Anion Gap 7 Blood Urea Nitrogen 13 Creatinine 0.63 Est Glomerular Filtrat Rate mL/min > 60 Glucose Level 105 Calcium Level 9.2 Phosphorus Level 3.5 Magnesium Level 1.8 Medications Medication Current Medications IV Flush (NS 3 ml) 3 ml PER PROTOCOL IV ; Start 03/22/19 at 16:30 Acetaminophen (Tylenol Tab) 650 mg Q6H PRN PO .PAIN 1-3 OR TEMP; Start 03/22/19 at 16:30 Acetaminophen/ Hydrocodone Bitart ([place] (5/325)) 1 tab Q6H PRN PO .MOD PAIN 4- 6; Start 03/22/19 at 16:30 Morphine Sulfate (morphine) 2 mg Q4H PRN IV .SEVERE PAIN 7-10 Last administered on 03/25/19at 14:57; Admin Dose 2 MG; Start 03/22/19 at 16:30 Bisacodyl (Dulcolax) 5 mg DAILY PRN PO .CONSTIPATION Last administered on 03/27/19 06:42; Admin Dose 5 MG; Start 03/22/19 at 16:30 Enoxaparin Sodium (Lovenox) 40 mg DAILY SC Last administered on 03/27/19 09:09; Admin Dose 40 MG; Start 03/23/19 at 09:00 Tobramycin (Tobramycin Iv Per Pharmacy) TOBRAMYCIN PER PHARMACY NOTE XX ; Start 03/22/19 at 16:30 Docusate Sodium/ Ferrous Fumarate (Anette-Sequels) 1 tab BID PO Last administered on 03/27/19 09:10; Admin Dose 1 TAB; Start 03/22/19 at 21:00 Docusate Sodium (Colace) 100 mg BID PO Last administered on 03/27/19 09:10; Admin Dose 100 MG; Start 03/23/19 at 14:30 Tobramycin 500 mg/ Dextrose 112.5 ml @ 112.5 mls/ hr Q36H IVPB Last administered on 03/26/19 05:16; Admin Dose 112.5 MLS/HR; Start 03/26/19 at 06:00 Miscellaneous Information (*Rx Drug Level Order Reminder*) 1 1700 ONCE XX ; Start 03/27/19 at 17:00; Stop 03/27/19 at 17:01 JIMENA STONE NP Mar 27, 2019 14:44
[2019-03-27] MEDS ORDERED: POTASSIUM CHLORIDE (SR) 10 MEQ TAB PO ONE (15:00)
--- NOTE | 2019-03-27 18:24 | CONS ---
Consultation Date/Type/Reason Admit Date/Time Mar 22, 2019 at 14:17 Initial Consult Date 03/22/19 Type of Consult SUBJECTIVE: Pt is awake, afebrile, resting in bed. No acute event over night. VS: stable T: 98.1 LABs: reviewed. WBC- 5.0 MICROBIOLOGY: Blood cultures negative GRAM STAIN Final POLYMORPH. LEUKOCYTE 2+ GRAM POS COCCI IN PAIRS 1+ GRAM POSITIVE RODS 1+ GRAM NEGATIVE RODS 1+ BODY FLUID CULTURE Preliminary Organism 1 GRAM NEGATIVE MOUNIKA QUANTITY 3+ Organism 2 GRAM NEGATIVE MOUNIKA#2 QUANTITY 3+ Antimicrobials: Tobramycin Fluid culture grew Pantoea and Citrobacter Allergy: Meropenem, causes rash Indwelling: Right chest Port-A-Cath, left-sided abdominal catheter Physical examination: GEN: This is well-nourished ill-appearing middle-aged man who is alert in no distress. HENT: ; Head atraumatic normocephalic neck is supple PULM: chest rise symmetrical breath sounds diminished to bases Heart: S1-S2 Abdomen: obese,, soft bowel sounds present Extremities with trace edema Assessment: 1. Splenic abscess status post CT-guided drainage with catheter placement 2. Left lower lobe consolidation; pneumonia versus atelectasis and small left pleural effusion. 3. Chronic anemia 4. History of E. coli ESBL and Citrobacter bacteremia on January 31, 2019 5. Status post open hemorrhoidectomy 01/27/19 6. S/p leukocytosis on admission Plan: Pt is stable. US of spleen noted. Continue current antibiotics. Pending final culture. surgical rec-s Date/Time of Note DATE: 03/27/19 TIME: 18:09 Exam/Review of Systems Exam Vitals Vital Signs Date Temp Pulse Resp B/P (MAP) Pulse Ox O2 O2 Flow FiO2 Time Delivery Rate 03/27/19 98.1 75 18 111/75 96 Room Air 14:00 (87) Intake and Output 03/26/19 03/26/19 03/27/19 1515:00 23:00 07:00 IntakeIntake Total 900 ml OutputOutput Total 6 ml 20 ml 705 ml BalanceBalance -6 ml 880 ml -705 ml Results Result Diagram: 03/27/19 0557 03/27/19 0557 Results 24hrs Laboratory Tests Test 03/27/19 05:57 White Blood Count 5.0 Red Blood Count 4.34 L Hemoglobin 11.0 L Hematocrit 36.0 L Mean Corpuscular Volume 82.9 Mean Corpuscular Hemoglobin 25.3 L Mean Corpuscular Hemoglobin Concent 30.6 L Red Cell Distribution Width 25.2 H Platelet Count 127 L Mean Platelet Volume 10.4 Immature Granulocytes % 0.200 Neutrophils % 73.8 Lymphocytes % 14.1 L Monocytes % 6.5 Eosinophils % 5.2 Basophils % 0.2 Nucleated Red Blood Cells % 0.0 Immature Granulocytes # 0.010 Neutrophils # 3.7 Lymphocytes # 0.7 L Monocytes # 0.3 Eosinophils # 0.3 Basophils # 0.0 Nucleated Red Blood Cells # 0.0 Sodium Level 139 Potassium Level 3.3 L Chloride Level 101 Carbon Dioxide Level 31 Anion Gap 7 Blood Urea Nitrogen 13 Creatinine 0.63 Est Glomerular Filtrat Rate mL/min > 60 Glucose Level 105 Calcium Level 9.2 Phosphorus Level 3.5 Magnesium Level 1.8 Medications Medication Current Medications IV Flush (NS 3 ml) 3 ml PER PROTOCOL IV ; Start 03/22/19 at 16:30 Acetaminophen (Tylenol Tab) 650 mg Q6H PRN PO .PAIN 1-3 OR TEMP; Start 03/22/19 at 16:30 Acetaminophen/ Hydrocodone Bitart ([place] (5/325)) 1 tab Q6H PRN PO .MOD PAIN 4- 6; Start 03/22/19 at 16:30 Morphine Sulfate (morphine) 2 mg Q4H PRN IV .SEVERE PAIN 7-10 Last administered on 03/25/19at 14:57; Admin Dose 2 MG; Start 03/22/19 at 16:30 Bisacodyl (Dulcolax) 5 mg DAILY PRN PO .CONSTIPATION Last administered on 03/27/19at 06:42; Admin Dose 5 MG; Start 03/22/19 at 16:30 Enoxaparin Sodium (Lovenox) 40 mg DAILY SC Last administered on 03/27/19at 09:09; Admin Dose 40 MG; Start 03/23/19 at 09:00 Tobramycin (Tobramycin Iv Per Pharmacy) TOBRAMYCIN PER PHARMACY NOTE XX ; Start 03/22/19 at 16:30 Docusate Sodium/ Ferrous Fumarate (Anette-Sequels) 1 tab BID PO Last administered on 03/27/19at 09:10; Admin Dose 1 TAB; Start 03/22/19 at 21:00 Docusate Sodium (Colace) 100 mg BID PO Last administered on 03/27/19at 09:10; Admin Dose 100 MG; Start 03/23/19 at 14:30 Tobramycin 500 mg/ Dextrose 112.5 ml @ 112.5 mls/ hr Q36H IVPB Last administered on 03/26/19at 05:16; Admin Dose 112.5 MLS/HR; Start 03/26/19 at 06:00 DANIEL PORTILLO Mar 27, 2019 18:23
[2019-03-27] MEDS: TOBRAMYCIN 500 MG in DEXTROSE 5% 100 ML IVPB SCH (18:58)
[2019-03-27 20:00] VITALS: BP 121/69; PULSE 81; RESP 18
[2019-03-28 02:00] VITALS: BP 123/76; PULSE 63; RESP 17
[2019-03-28] MEDS: BISACODYL (EC) 5 MG TAB PO PRN (04:59)
[2019-03-28 08:35] VITALS: BP 119/77; PULSE 70; RESP 18
[2019-03-28] MEDS: DOCUSATE SODIUM 100 MG CAP PO SCH ×2 (09:42→21:14)
[2019-03-28] MEDS: FERROUS FUMARATE (SR) TAB PO SCH ×2 (09:42→21:14)
[2019-03-28] MEDS: ENOXAPARIN 40 MG/0.4 ML SYG SC SCH (09:44)
[2019-03-28] MEDS ORDERED: POTASSIUM CHLORIDE (SR) 20 MEQ TAB PO STA (12:12)
--- NOTE | 2019-03-28 12:14 | PN ---
Date/Time of Note Date/Time of Note DATE: 03/28/19 TIME: 12:14 Assessment/Plan VTE Prophylaxis Risk score (from Ns)>0 risk: 4 SCD applied (from Ns): Yes Pharmacological prophylaxis: LMWH Lines/Catheters IV Catheter Type (from [facility]): Port A Cath Assessment/Plan Hospital Course SUBJECTIVE: Remains afebrile. OBJECTIVE: Physical Exam General: This is a 53 year-old male lying in bed in no apparent distress. HEENT: Normocephalic, atraumatic. Eyes: Anicteric sclerae, conjunctivae clear. ENT: Nasal septum midline, oral mucosa moist. Neck supple, no JVD noticed. Respiratory: Bilaterally clear breath sounds. No use of accessory muscles of respiration. No adventitious breath sounds. Cardiovascular: S1, S2 heard. Regular rate and rhythm. Abdomen: Soft and nondistended. LUQ drain with brown colored fluid draining out. Bowel sounds positive in all 4 quadrants. Genitourinary: Deferred. Extremities: No cyanosis, no clubbing, no edema. Peripheral pulses palpable. Neurologic: Cranial nerves II through XII grossly intact. The patient is awake, alert, and oriented. Skin: Normal skin turgor. No skin rashes. Labs & Vitals per chart ASSESSMENT & PLAN 53-year-old male with comorbidities including iron deficiency anemia and splenic abscess status post percutaneous drainage on 03/05/2019, was discharged home on 03/14/2019 with a drain in place for outpatient follow-up, who had returned back to the emergency room on 03/22/2019 because of inability to get a repeat CT scan done in a timely fashion. 1. Splenic abscess. Status post CT-guided percutaneous drainage of splenic fluid collection on 03/05/2019. Fluid culture from 03/05/19 showed Pantoea agglomerans and Citrobacter koseri. Latest fluid culture showing E. coli ESBL and Citrobacter koseri Latest CT scan showing fluid collection measuring 9.8 x 4.3 cm. On antibiotics as per ID. 2. Left lower lobe infiltrate/atelectasis with a left sided pleural effusion. Most probably secondary to #1. Continue antimicrobials as per ID. Encourage incentive spirometry. 3. Iron deficiency. Continue iron supplements. 4. Fluids, electrolytes, and nutrition. Regular diet. 5. DVT prophylaxis. Subcutaneous Lovenox. 6. Plan. Continue antimicrobials as per ID. Disposition: Plan is to discharge the patient home with home health arranged for drainage care and once ABX are finalized. The patient was seen in collaboration with Dr. Goldman. Result Diagram: 03/28/19 0454 03/28/19 0454 Results 24hrs Laboratory Tests Test 03/27/19 18:01 03/28/19 04:54 Tobramycin Level Trough < 0.6 L White Blood Count 3.8 #L Red Blood Count 4.22 L Hemoglobin 10.8 L Hematocrit 35.1 L Mean Corpuscular Volume 83.2 Mean Corpuscular Hemoglobin 25.6 L Mean Corpuscular Hemoglobin Concent 30.8 L Red Cell Distribution Width 25.1 H Platelet Count 122 L Mean Platelet Volume 10.4 Immature Granulocytes % 0.300 Neutrophils % 57.8 Lymphocytes % 23.7 Monocytes % 9.5 Eosinophils % 8.4 H Basophils % 0.3 Nucleated Red Blood Cells % 0.0 Immature Granulocytes # 0.010 Neutrophils # 2.2 Lymphocytes # 0.9 Monocytes # 0.4 Eosinophils # 0.3 Basophils # 0.0 Nucleated Red Blood Cells # 0.0 Sodium Level 139 Potassium Level 3.3 L Chloride Level 102 Carbon Dioxide Level 30 Anion Gap 7 Blood Urea Nitrogen 14 Creatinine 0.66 Est Glomerular Filtrat Rate mL/min > 60 Glucose Level 96 Calcium Level 9.3 Phosphorus Level 4.1 Magnesium Level 1.9 Exam/Review of Systems Exam Vitals Vital Signs Date Temp Pulse Resp B/P (MAP) Pulse Ox O2 O2 Flow FiO2 Time Delivery Rate 03/28/19 98.2 70 18 119/77 100 Room Air 08:35 (91) Intake and Output 03/27/19 03/27/19 03/28/19 1515:00 23:00 07:00 IntakeIntake Total 780 ml 452.5 ml OutputOutput Total 300 ml 20 ml 30 ml BalanceBalance 480 ml 432.5 ml -30 ml Results Results 24hrs Laboratory Tests Test 03/27/19 18:01 03/28/19 04:54 Tobramycin Level Trough < 0.6 L White Blood Count 3.8 #L Red Blood Count 4.22 L Hemoglobin 10.8 L Hematocrit 35.1 L Mean Corpuscular Volume 83.2 Mean Corpuscular Hemoglobin 25.6 L Mean Corpuscular Hemoglobin Concent 30.8 L Red Cell Distribution Width 25.1 H Platelet Count 122 L Mean Platelet Volume 10.4 Immature Granulocytes % 0.300 Neutrophils % 57.8 Lymphocytes % 23.7 Monocytes % 9.5 Eosinophils % 8.4 H Basophils % 0.3 Nucleated Red Blood Cells % 0.0 Immature Granulocytes # 0.010 Neutrophils # 2.2 Lymphocytes # 0.9 Monocytes # 0.4 Eosinophils # 0.3 Basophils # 0.0 Nucleated Red Blood Cells # 0.0 Sodium Level 139 Potassium Level 3.3 L Chloride Level 102 Carbon Dioxide Level 30 Anion Gap 7 Blood Urea Nitrogen 14 Creatinine 0.66 Est Glomerular Filtrat Rate mL/min > 60 Glucose Level 96 Calcium Level 9.3 Phosphorus Level 4.1 Magnesium Level 1.9 Medications Medication Current Medications IV Flush (NS 3 ml) 3 ml PER PROTOCOL IV ; Start 03/22/19 at 16:30 Acetaminophen (Tylenol Tab) 650 mg Q6H PRN PO .PAIN 1-3 OR TEMP; Start 03/22/19 at 16:30 Acetaminophen/ Hydrocodone Bitart ([place] (5/325)) 1 tab Q6H PRN PO .MOD PAIN 4- 6; Start 03/22/19 at 16:30 Morphine Sulfate (morphine) 2 mg Q4H PRN IV .SEVERE PAIN 7-10 Last administered on 03/25/19at 14:57; Admin Dose 2 MG; Start 03/22/19 at 16:30 Bisacodyl (Dulcolax) 5 mg DAILY PRN PO .CONSTIPATION Last administered on at 04:59; Admin Dose 5 MG; Start 03/22/19 at 16:30 Enoxaparin Sodium (Lovenox) 40 mg DAILY SC Last administered on 03/28/19at 09:44; Admin Dose 40 MG; Start 03/23/19 at 09:00 Tobramycin (Tobramycin Iv Per Pharmacy) TOBRAMYCIN PER PHARMACY NOTE XX ; Start 03/22/19 at 16:30 Docusate Sodium/ Ferrous Fumarate (Anette-Sequels) 1 tab BID PO Last administered on 03/28/19at 09:42; Admin Dose 1 TAB; Start 03/22/19 at 21:00 Docusate Sodium (Colace) 100 mg BID PO Last administered on 03/28/19at 09:42; Admin Dose 100 MG; Start 03/23/19 at 14:30 Tobramycin 500 mg/ Dextrose 112.5 ml @ 112.5 mls/ hr Q36H IVPB Last administered on 03/27/19at 18:58; Admin Dose 112.5 MLS/HR; Start 03/26/19 at 06:00 JIMENA STONE NP Mar 28, 2019 12:14
--- NOTE | 2019-03-28 12:58 | CONS ---
Assessment/Plan Assessment/Plan Hospital Course (Demo Recall) Awake, looks comfortable, afebrile Blood cultures negative Antimicrobials: Tobramycin Fluid culture grew E coli ESBL and Citrobacter Allergy: Meropenem, causes rash Indwelling: Right chest Port-A-Cath, left-sided abdominal catheter Physical examination: This is well-nourished ill-appearing middle-aged man who is alert in no distress. Head atraumatic normocephalic neck is supple chest rise symmetrical breath sounds diminished to bases heart: S1-S2 abdomen obese soft bowel sounds present extremities with trace edema Assessment: 1. Splenic abscess status post CT-guided drainage with catheter placement 2. Left lower lobe consolidation; pneumonia versus atelectasis and small left pleural effusion. 3. Chronic anemia 4. History of E. coli ESBL and Citrobacter bacteremia on January 31, 2019 5. Status post open hemorrhoidectomy 01/27/19 6. S/p leukocytosis on admission Plan: Remains stable, fluid cx's noted, ok dc on IV Tobramycin for 10 more days, pt will be f/u with Dr Wu for repeat spleen US Consultation Date/Type/Reason Admit Date/Time Mar 22, 2019 at 14:17 Initial Consult Date 03/22/19 Type of Consult id Date/Time of Note DATE: 03/28/19 TIME: 12:57 Exam/Review of Systems Exam Vitals Vital Signs Date Temp Pulse Resp B/P (MAP) Pulse Ox O2 O2 Flow FiO2 Time Delivery Rate 03/28/19 98.2 70 18 119/77 100 Room Air 08:35 (91) Intake and Output 03/27/19 03/27/19 03/28/19 1515:00 23:00 07:00 IntakeIntake Total 780 ml 452.5 ml OutputOutput Total 300 ml 20 ml 30 ml BalanceBalance 480 ml 432.5 ml -30 ml Results Result Diagram: 03/28/19 0454 03/28/19 0454 Results 24hrs Laboratory Tests Test 03/27/19 18:01 03/28/19 04:54 Tobramycin Level Trough < 0.6 L White Blood Count 3.8 #L Red Blood Count 4.22 L Hemoglobin 10.8 L Hematocrit 35.1 L Mean Corpuscular Volume 83.2 Mean Corpuscular Hemoglobin 25.6 L Mean Corpuscular Hemoglobin Concent 30.8 L Red Cell Distribution Width 25.1 H Platelet Count 122 L Mean Platelet Volume 10.4 Immature Granulocytes % 0.300 Neutrophils % 57.8 Lymphocytes % 23.7 Monocytes % 9.5 Eosinophils % 8.4 H Basophils % 0.3 Nucleated Red Blood Cells % 0.0 Immature Granulocytes # 0.010 Neutrophils # 2.2 Lymphocytes # 0.9 Monocytes # 0.4 Eosinophils # 0.3 Basophils # 0.0 Nucleated Red Blood Cells # 0.0 Sodium Level 139 Potassium Level 3.3 L Chloride Level 102 Carbon Dioxide Level 30 Anion Gap 7 Blood Urea Nitrogen 14 Creatinine 0.66 Est Glomerular Filtrat Rate mL/min > 60 Glucose Level 96 Calcium Level 9.3 Phosphorus Level 4.1 Magnesium Level 1.9 Medications Medication Current Medications IV Flush (NS 3 ml) 3 ml PER PROTOCOL IV ; Start 03/22/19 at 16:30 Acetaminophen (Tylenol Tab) 650 mg Q6H PRN PO .PAIN 1-3 OR TEMP; Start 03/22/19 at 16:30 Acetaminophen/ Hydrocodone Bitart ([place] (5/325)) 1 tab Q6H PRN PO .MOD PAIN 4- 6; Start 03/22/19 at 16:30 Morphine Sulfate (morphine) 2 mg Q4H PRN IV .SEVERE PAIN 7-10 Last administered on 03/25/19at 14:57; Admin Dose 2 MG; Start 03/22/19 at 16:30 Bisacodyl (Dulcolax) 5 mg DAILY PRN PO .CONSTIPATION Last administered on 03/28/19at 04:59; Admin Dose 5 MG; Start 03/22/19 at 16:30 Enoxaparin Sodium (Lovenox) 40 mg DAILY SC Last administered on 03/28/19at 09:44; Admin Dose 40 MG; Start 03/23/19 at 09:00 Tobramycin (Tobramycin Iv Per Pharmacy) TOBRAMYCIN PER PHARMACY NOTE XX ; Start 03/22/19 at 16:30 Docusate Sodium/ Ferrous Fumarate (Anette-Sequels) 1 tab BID PO Last administered on 03/28/19at 09:42; Admin Dose 1 TAB; Start 03/22/19 at 21:00 Docusate Sodium (Colace) 100 mg BID PO Last administered on 03/28/19at 09:42; Admin Dose 100 MG; Start 03/23/19 at 14:30 Tobramycin 500 mg/ Dextrose 112.5 ml @ 112.5 mls/ hr Q36H IVPB Last administered on 03/27/19at 18:58; Admin Dose 112.5 MLS/HR; Start 03/26/19 at 06:00 JAYRO SANTIAGO NP Mar 28, 2019 12:58
--- NOTE | 2019-03-28 13:33 | PN ---
Date/Time of Note Date/Time of Note DATE: 03/28/19 TIME: 13:32 Assessment/Plan Lines/Catheters IV Catheter Type (from Nrsg): Port A Cath Assessment/Plan Chief Complaint/Hosp Course 1. Splenic abscess, leukocytosis, lactic acidosis s/p IR drain with revision of IR drain due to malposition re-presents with persistent abscess; drain productive; us:decreasing abscess size ; repeat cx noted -Continue Abx per ID -pain control> non-narcotics if able -supportive -continue drain- flush q shift -ok for dc from surgical standpoint. Will need HH for drain care, abx per ID and repeat US prior to following up in office (to follow in office in 1 week) 2. Recent bacteremia with ESBL and Cytrobacter s/p abx 3. Anemia stable 4. BMI 33>28 -diet/exercise optimization 5. Leukocytosis: Resolved, now w mild leukopenia -as above -trend Thank you. Patient seen and examined in collaboration with Dr. Yuriy Wu. Subjective 24 Hr Interval Summary Continues to have good drainage from pigtail drain. No fevers, chills, sob, congested cough, cp, palpitations, metz, dizziness, n/v/d/dysuria. Exam/Review of Systems Vital Signs Vitals Vital Signs Date Temp Pulse Resp B/P (MAP) Pulse Ox O2 O2 Flow FiO2 Time Delivery Rate 03/28/19 98.2 70 18 119/77 100 Room Air 08:35 (91) Intake and Output 03/27/19 03/27/19 03/28/19 1515:00 23:00 07:00 IntakeIntake Total 780 ml 452.5 ml OutputOutput Total 300 ml 20 ml 30 ml BalanceBalance 480 ml 432.5 ml -30 ml Exam Free Text/Dictation Constitutional: alert, oriented, overweight Psych: anxiety; No confusion Head: normocephalic, atraumatic Eyes: nl conjunctiva, EOMI, PERRL; No icteric ENMT: nl external ears & nose, nl lips & teeth Neck: supple, non-tender; No jvd Respiratory: normal air movement; No labored breathing, No wheezing Cardiovascular: regular rate and rhythm; No edema Gastrointestinal: soft, distended, minimal tender (Left flank); left-sided drain (purulent drainage) No rebound or guarding Musculoskeletal: No nl gait and stance, No joint tenderness Extremities: normal pulses; No calf tenderness, No edema Neurological: nl mental status, nl speech Skin: nl turgor; No rash or lesions, No diaphoresis Lymph: nl lymph nodes Results Result Diagram: 03/28/19 0454 03/28/19 0454 BRUNO SALDANA NP Mar 28, 2019 13:33
[2019-03-28 14:26] VITALS: BP 118/84; PULSE 78; RESP 18
[2019-03-28 20:22] VITALS: BP 116/74; PULSE 84; RESP 20
[2019-03-29 01:58] VITALS: BP 116/74; PULSE 61; RESP 18
[2019-03-29] MEDS: TOBRAMYCIN 500 MG in DEXTROSE 5% 100 ML IVPB SCH (05:25)
[2019-03-29] MEDS: BISACODYL (EC) 5 MG TAB PO PRN (05:25)
[2019-03-29 08:00] VITALS: BP 121/77; PULSE 59; RESP 18
[2019-03-29] MEDS: DOCUSATE SODIUM 100 MG CAP PO SCH ×2 (09:07→21:34)
[2019-03-29] MEDS: FERROUS FUMARATE (SR) TAB PO SCH ×2 (09:07→21:34)
[2019-03-29] MEDS: ENOXAPARIN 40 MG/0.4 ML SYG SC SCH (09:07)
--- NOTE | 2019-03-29 11:45 | CONS ---
Assessment/Plan Assessment/Plan Hospital Course (Demo Recall) No acute events over night Blood cultures negative Antimicrobials: Tobramycin Fluid culture grew MDR E coli ESBL and Citrobacter Allergy: Meropenem, causes rash Indwelling: Right chest Port-A-Cath, left-sided abdominal catheter Physical examination: This is well-nourished ill-appearing middle-aged man who is alert in no distress. Head atraumatic normocephalic neck is supple chest rise symmetrical breath sounds diminished to bases heart: S1-S2 abdomen obese soft bowel sounds present extremities with trace edema Assessment: 1. Splenic abscess status post CT-guided drainage with catheter placement 2. Left lower lobe consolidation; pneumonia versus atelectasis and small left pleural effusion. 3. Chronic anemia 4. History of E. coli ESBL and Citrobacter bacteremia on January 31, 2019 5. Status post open hemorrhoidectomy 01/27/19 6. S/p leukocytosis on admission Plan: Remains stable, per dw surgery ok dc on IV Tobramycin for 10 more days, pt to f/u with Dr Wu for repeat spleen US, may require splenectomy if abscess persists Consultation Date/Type/Reason Admit Date/Time Mar 22, 2019 at 14:17 Initial Consult Date 03/22/19 Type of Consult id Date/Time of Note DATE: 03/29/19 TIME: 11:44 Exam/Review of Systems Exam Vitals Vital Signs Date Temp Pulse Resp B/P (MAP) Pulse Ox O2 O2 Flow FiO2 Time Delivery Rate 03/29/19 98.0 59 18 121/77 97 Room Air 08:00 (92) Intake and Output 03/28/19 03/28/19 03/29/19 1515:00 23:00 07:00 IntakeIntake Total 1360 ml 450 ml 350 ml OutputOutput Total 300 ml 30 ml 520 ml BalanceBalance 1060 ml 420 ml -170 ml Results Result Diagram: 03/29/19 0543 03/29/19 0543 Results 24hrs Laboratory Tests Test 03/29/19 05:43 White Blood Count 3.0 #L Red Blood Count 4.34 L Hemoglobin 11.2 L Hematocrit 36.1 L Mean Corpuscular Volume 83.2 Mean Corpuscular Hemoglobin 25.8 L Mean Corpuscular Hemoglobin Concent 31.0 L Red Cell Distribution Width 25.0 H Platelet Count 144 Mean Platelet Volume 10.5 H Immature Granulocytes % 0.300 Neutrophils % 54.2 Lymphocytes % 26.1 Monocytes % 9.2 Eosinophils % 9.9 H Basophils % 0.3 Nucleated Red Blood Cells % 0.0 Immature Granulocytes # 0.010 Neutrophils # 1.6 Lymphocytes # 0.8 Monocytes # 0.3 Eosinophils # 0.3 Basophils # 0.0 Nucleated Red Blood Cells # 0.0 Sodium Level 141 Potassium Level 3.9 Chloride Level 105 Carbon Dioxide Level 29 Anion Gap 7 Blood Urea Nitrogen 16 Creatinine 0.67 Est Glomerular Filtrat Rate mL/min > 60 Glucose Level 105 Calcium Level 9.2 Phosphorus Level 3.9 Magnesium Level 1.8 Medications Medication Current Medications IV Flush (NS 3 ml) 3 ml PER PROTOCOL IV ; Start 03/22/19 at 16:30 Acetaminophen (Tylenol Tab) 650 mg Q6H PRN PO .PAIN 1-3 OR TEMP; Start 03/22/19 at 16:30 Acetaminophen/ Hydrocodone Bitart ([place] (5/325)) 1 tab Q6H PRN PO .MOD PAIN 4- 6; Start 03/22/19 at 16:30 Morphine Sulfate (morphine) 2 mg Q4H PRN IV .SEVERE PAIN 7-10 Last administered on 03/25/19at 14:57; Admin Dose 2 MG; Start 03/22/19 at 16:30 Bisacodyl (Dulcolax) 5 mg DAILY PRN PO .CONSTIPATION Last administered on 03/29/19at 05:25; Admin Dose 5 MG; Start 03/22/19 at 16:30 Enoxaparin Sodium (Lovenox) 40 mg DAILY SC Last administered on 03/29/19at 09:07; Admin Dose 40 MG; Start 03/23/19 at 09:00 Tobramycin (Tobramycin Iv Per Pharmacy) TOBRAMYCIN PER PHARMACY NOTE XX ; Start 03/22/19 at 16:30 Docusate Sodium/ Ferrous Fumarate (Anette-Sequels) 1 tab BID PO Last administered on 03/29/19at 09:07; Admin Dose 1 TAB; Start 03/22/19 at 21:00 Docusate Sodium (Colace) 100 mg BID PO Last administered on 03/29/19at 09:07; Admin Dose 100 MG; Start 03/23/19 at 14:30 Tobramycin 500 mg/ Dextrose 112.5 ml @ 112.5 mls/ hr Q36H IVPB Last administered on 03/29/19at 05:25; Admin Dose 112.5 MLS/HR; Start 03/26/19 at 06:00 JAYRO SANTIAGO NP Mar 29, 2019 11:45
[2019-03-29 14:00] VITALS: BP 120/81; RESP 19
--- NOTE | 2019-03-29 15:03 | PN ---
Date/Time of Note Date/Time of Note DATE: 03/29/19 TIME: 14:59 Assessment/Plan VTE Prophylaxis Risk score (from [facility] [place])>0 risk: 4 SCD applied (from [facility] [place]): Yes Pharmacological prophylaxis: LMWH Lines/Catheters IV [facility] PORT-A-CATH Assessment/Plan Hospital Course 1. Splenic abscess. Status post CT-guided percutaneous drainage of splenic fluid collection on 03/05/2019. Fluid culture from 03/05/19 showed Pantoea agglomerans and Citrobacter koseri. Latest fluid culture showing E. coli ESBL and Citrobacter koseri Latest CT scan showing fluid collection measuring 9.8 x 4.3 cm. On antibiotics as per ID. analgesics prn f/u surgeon recommendations 2. Left lower lobe infiltrate/atelectasis with a left sided pleural effusion. continue abx Encourage incentive spirometry. 3. Iron deficiency. on iron supplements Dispo/Plan. f/u case management for patient to start with antibiotic regimen upon DC. Follow-up with surgeon. Tentative plan for DC if cleared by consults and medically stable. Discussed POC with Dr. Aguilar Result Diagram: 03/29/19 0543 03/29/19 0543 Results 24hrs Laboratory Tests Test 03/29/19 05:43 White Blood Count 3.0 #L Red Blood Count 4.34 L Hemoglobin 11.2 L Hematocrit 36.1 L Mean Corpuscular Volume 83.2 Mean Corpuscular Hemoglobin 25.8 L Mean Corpuscular Hemoglobin Concent 31.0 L Red Cell Distribution Width 25.0 H Platelet Count 144 Mean Platelet Volume 10.5 H Immature Granulocytes % 0.300 Neutrophils % 54.2 Lymphocytes % 26.1 Monocytes % 9.2 Eosinophils % 9.9 H Basophils % 0.3 Nucleated Red Blood Cells % 0.0 Immature Granulocytes # 0.010 Neutrophils # 1.6 Lymphocytes # 0.8 Monocytes # 0.3 Eosinophils # 0.3 Basophils # 0.0 Nucleated Red Blood Cells # 0.0 Sodium Level 141 Potassium Level 3.9 Chloride Level 105 Carbon Dioxide Level 29 Anion Gap 7 Blood Urea Nitrogen 16 Creatinine 0.67 Est Glomerular Filtrat Rate mL/min > 60 Glucose Level 105 Calcium Level 9.2 Phosphorus Level 3.9 Magnesium Level 1.8 Subjective 24 Hr Interval Summary Free Text/Dictation Patient denies any pain at this time. at bedside. Not much drainage seen from drainage bag. Exam/Review of Systems Exam Vitals Vital Signs Date Temp Pulse Resp B/P (MAP) Pulse Ox O2 O2 Flow FiO2 Time Delivery Rate 03/29/19 98.0 59 18 121/77 97 Room Air 08:00 (92) Intake and Output 03/28/19 03/28/19 03/29/19 1515:00 23:00 07:00 IntakeIntake Total 1360 ml 450 ml 350 ml OutputOutput Total 300 ml 30 ml 520 ml BalanceBalance 1060 ml 420 ml -170 ml Constitutional: alert, oriented Psych: nl mood/affect Head: normocephalic Eyes: nl conjunctiva Neck: supple, non-tender Respiratory: clear to auscultation, normal air movement Cardiovascular: regular rate and rhythm Gastrointestinal: soft, non-tender Musculoskeletal: nl extremities to inspection Neurological: D[employer]ICIAN II-XII intact, nl mental status, nl speech Skin: other (Surgical site on abdomen with drainage bag in place. Purulent drainage seen but minimal) Results Results 24hrs Laboratory Tests Test 03/29/19 05:43 White Blood Count 3.0 #L Red Blood Count 4.34 L Hemoglobin 11.2 L Hematocrit 36.1 L Mean Corpuscular Volume 83.2 Mean Corpuscular Hemoglobin 25.8 L Mean Corpuscular Hemoglobin Concent 31.0 L Red Cell Distribution Width 25.0 H Platelet Count 144 Mean Platelet Volume 10.5 H Immature Granulocytes % 0.300 Neutrophils % 54.2 Lymphocytes % 26.1 Monocytes % 9.2 Eosinophils % 9.9 H Basophils % 0.3 Nucleated Red Blood Cells % 0.0 Immature Granulocytes # 0.010 Neutrophils # 1.6 Lymphocytes # 0.8 Monocytes # 0.3 Eosinophils # 0.3 Basophils # 0.0 Nucleated Red Blood Cells # 0.0 Sodium Level 141 Potassium Level 3.9 Chloride Level 105 Carbon Dioxide Level 29 Anion Gap 7 Blood Urea Nitrogen 16 Creatinine 0.67 Est Glomerular Filtrat Rate mL/min > 60 Glucose Level 105 Calcium Level 9.2 Phosphorus Level 3.9 Magnesium Level 1.8 Medications Medication Current Medications IV Flush (NS 3 ml) 3 ml PER PROTOCOL IV ; Start 03/22/19 at 16:30 Acetaminophen (Tylenol Tab) 650 mg Q6H PRN PO .PAIN 1-3 OR TEMP; Start 03/22/19 at 16:30 Acetaminophen/ Hydrocodone Bitart ([place] (5/325)) 1 tab Q6H PRN PO .MOD PAIN 4- 6 Last administered on 03/29/19 13:12; Admin Dose 1 TAB; Start 03/22/19 at 16:30 Morphine Sulfate (morphine) 2 mg Q4H PRN IV .SEVERE PAIN 7-10 Last administered on 03/25/19 14:57; Admin Dose 2 MG; Start 03/22/19 at 16:30 Bisacodyl (Dulcolax) 5 mg DAILY PRN PO .CONSTIPATION Last administered on 03/29/19 05:25; Admin Dose 5 MG; Start 03/22/19 at 16:30 Enoxaparin Sodium (Lovenox) 40 mg DAILY SC Last administered on 03/29/19 09:07; Admin Dose 40 MG; Start 03/23/19 at 09:00 Tobramycin (Tobramycin Iv Per Pharmacy) TOBRAMYCIN PER PHARMACY NOTE XX ; Start 03/22/19 at 16:30 Docusate Sodium/ Ferrous Fumarate (Anette-Sequels) 1 tab BID PO Last administered on 03/29/19 09:07; Admin Dose 1 TAB; Start 03/22/19 at 21:00 Docusate Sodium (Colace) 100 mg BID PO Last administered on 03/29/19 09:07; Admin Dose 100 MG; Start 03/23/19 at 14:30 Tobramycin 500 mg/ Dextrose 112.5 ml @ 112.5 mls/ hr Q36H IVPB Last administered on 03/29/19 05:25; Admin Dose 112.5 MLS/HR; Start 03/26/19 at 06:00 JANELLE WAGGONER NP Mar 29, 2019 15:03
--- NOTE | 2019-03-29 18:16 | PN ---
Date/Time of Note Date/Time of Note DATE: 03/29/19 TIME: 18:15 Assessment/Plan Lines/Catheters IV Catheter Type (from Nrsg): PORT-A-CATH Assessment/Plan Chief Complaint/Hosp Course 1. Splenic abscess, leukocytosis, lactic acidosis s/p IR drain with revision of IR drain due to malposition re-presents with persistent abscess; drain productive; us:decreasing abscess size ; repeat cx noted -Continue Abx per ID -pain control> non-narcotics if able -supportive -continue drain- flush q shift -ok for dc from surgical standpoint. Will need HH for drain care, abx per ID and repeat US prior to following up in office (to follow in office in 1 week) 2. Recent bacteremia with ESBL and Cytrobacter s/p abx 3. Anemia stable 4. BMI 33>28 -diet/exercise optimization 5. Leukocytosis: Resolved, now w mild leukopenia -as above -trend Thank you Subjective 24 Hr Interval Summary Continues to have good drainage from pigtail drain. No fevers, chills, sob, con gested cough, cp, palpitations, metz, dizziness, n/v/d/dysuria. Exam/Review of Systems Vital Signs Vitals Vital Signs Date Temp Pulse Resp B/P (MAP) Pulse Ox O2 O2 Flow FiO2 Time Delivery Rate 03/29/19 98.0 19 120/81 97 Room Air 14:00 (94) 03/29/19 59 08:00 Intake and Output 03/28/19 03/28/19 03/29/19 1515:00 23:00 07:00 IntakeIntake Total 1360 ml 450 ml 350 ml OutputOutput Total 300 ml 30 ml 520 ml BalanceBalance 1060 ml 420 ml -170 ml Exam Free Text/Dictation Constitutional: alert, oriented, overweight Psych: anxiety; No confusion Head: normocephalic, atraumatic Eyes: nl conjunctiva, EOMI, PERRL; No icteric ENMT: nl external ears & nose, nl lips & teeth Neck: supple, non-tender; No jvd Respiratory: normal air movement; No labored breathing, No wheezing Cardiovascular: regular rate and rhythm; No edema Gastrointestinal: soft, distended, minimal tender (Left flank); left-sided drain (purulent drainage) No rebound or guarding Musculoskeletal: No nl gait and stance, No joint tenderness Extremities: normal pulses; No calf tenderness, No edema Neurological: nl mental status, nl speech Skin: nl turgor; No rash or lesions, No diaphoresis Lymph: nl lymph nodes Results Result Diagram: 03/29/19 0543 03/29/19 0543 ISAI RANDALL MD Mar 29, 2019 18:16
[2019-03-29 20:00] VITALS: BP 116/76; PULSE 81; RESP 17
[2019-03-30 02:00] VITALS: BP 110/71; PULSE 59; RESP 19
[2019-03-30 03:10] VITALS: PULSE 78
[2019-03-30] MEDS: BISACODYL (EC) 5 MG TAB PO PRN (06:16)
[2019-03-30 07:45] VITALS: BP 118/70; PULSE 67; RESP 16
[2019-03-30] MEDS: DOCUSATE SODIUM 100 MG CAP PO SCH (08:56)
[2019-03-30] MEDS: FERROUS FUMARATE (SR) TAB PO SCH (08:56)
[2019-03-30] MEDS: ENOXAPARIN 40 MG/0.4 ML SYG SC SCH (08:58)
[2019-03-30] MEDS ORDERED: TRAM50TA PO (09:45)
[2019-03-30] MEDS ORDERED: TOBRAMYCIN XX (09:45)
--- NOTE | 2019-03-30 09:48 | PDOCDIS ---
Discharge Instructions DIAGNOSIS Discharge Diagnosis 1. Splenic abscess. 2. Left lower lobe infiltrate/atelectasis with a left sided pleural effusion. 3. Iron deficiency. CONDITION [id number] Patient Condition: [id number] Stable FOLLOW UP/APPOINTMENTS Follow-up Plan 1. Follow up with Dr. Yuriy Wu in one week Office Address [id number] [address] Office JANELLE WAGGONER NP Mar 30, 2019 09:48
[2019-03-30] MEDS ORDERED: SOD FERRIC GLUC COMPLX 125 MG in SOD CHLORIDE 0.9% 100 ML IVPB ONE (10:00)
--- NOTE | 2019-03-30 11:09 | PN ---
Date/Time of Note Date/Time of Note DATE: 03/30/19 TIME: 11:07 Assessment/Plan Lines/Catheters IV Catheter Type (from Nrsg): Portacath Assessment/Plan Chief Complaint/Hosp Course 1. Splenic abscess, leukocytosis, lactic acidosis s/p IR drain with revision of IR drain due to malposition re-presents with persistent abscess; drain productive; us:decreasing abscess size ; repeat cx noted -Continue Abx per ID -pain control> non-narcotics if able -supportive -continue drain- flush q shift -ok for dc from surgical standpoint. Will need HH for drain care, abx per ID and repeat US prior to following up in office (to follow in office in 1 week) 2. Recent bacteremia with ESBL and Cytrobacter s/p abx 3. Anemia stable 4. BMI 33>28 -diet/exercise optimization 5. Leukocytosis: Resolved, now w mild leukopenia -as above -trend Thank you. Patient seen and examined in collaboration with Dr. Yuriy Wu. Subjective 24 Hr Interval Summary Feels okay. Continues to have drainage per pigtail drain. No fevers, chills, sob, congested cough, cp, palpitations, metz, dizziness, nausea, vomiting, diarrhea, dysuria. Exam/Review of Systems Vital Signs Vitals Vital Signs Date Temp Pulse Resp B/P (MAP) Pulse Ox O2 O2 Flow FiO2 Time Delivery Rate 03/30/19 97.8 67 16 118/70 97 Room Air 07:45 (86) Intake and Output 03/29/19 03/29/19 03/30/19 1515:00 23:00 07:00 IntakeIntake Total 112.5 ml 900 ml 640 ml OutputOutput Total 40 ml 1240 ml BalanceBalance 112.5 ml 860 ml -600 ml Exam Free Text/Dictation Constitutional: alert, oriented, overweight Psych: anxiety; No confusion Head: normocephalic, atraumatic Eyes: nl conjunctiva, EOMI, PERRL; No icteric ENMT: nl external ears & nose, nl lips & teeth Neck: supple, non-tender; No jvd Respiratory: normal air movement; No labored breathing, No wheezing Cardiovascular: regular rate and rhythm; No edema Gastrointestinal: soft, distended, minimal tender (Left flank); left-sided drain (purulent drainage) No rebound or guarding Musculoskeletal: No nl gait and stance, No joint tenderness Extremities: normal pulses; No calf tenderness, No edema Neurological: nl mental status, nl speech Skin: nl turgor; No rash or lesions, No diaphoresis Lymph: nl lymph nodes Results Result Diagram: 03/29/19 0543 03/29/19 0543 BRUNO SALDANA NP Mar 30, 2019 11:09
[2019-03-30 14:15] VITALS: BP 110/71; PULSE 86; RESP 16
--- NOTE | 2019-03-30 14:42 | CONS ---
Assessment/Plan Assessment/Plan Hospital Course (Demo Recall) Alert, feels good, no fevers Blood cultures negative Antimicrobials: Tobramycin Fluid culture grew MDR E coli ESBL and Citrobacter Allergy: Meropenem, causes rash Indwelling: Right chest Port-A-Cath, left-sided abdominal catheter Physical examination: This is well-nourished ill-appearing middle-aged man who is alert in no distress. Head atraumatic normocephalic neck is supple chest rise symmetrical breath sounds diminished to bases heart: S1-S2 abdomen obese soft bowel sounds present extremities with trace edema Assessment: 1. Splenic abscess status post CT-guided drainage with catheter placement 2. Left lower lobe consolidation; pneumonia versus atelectasis and small left pleural effusion. 3. Chronic anemia 4. History of E. coli ESBL and Citrobacter bacteremia on January 31, 2019 5. Status post open hemorrhoidectomy 01/27/19 6. S/p leukocytosis on admission Plan: Remains stable, ok dc on IV Tobramycin for 10 more days, pt to f/u with Dr Wu for repeat spleen US, may require splenectomy if abscess persists Consultation Date/Type/Reason Admit Date/Time Mar 22, 2019 at 14:17 Initial Consult Date 03/22/19 Type of Consult id Date/Time of Note DATE: 03/30/19 TIME: 14:42 Exam/Review of Systems Exam Vitals Vital Signs Date Temp Pulse Resp B/P (MAP) Pulse Ox O2 O2 Flow FiO2 Time Delivery Rate 03/30/19 97.4 86 16 110/71 95 Room Air 14:15 (84) Intake and Output 03/29/19 03/29/19 03/30/19 1515:00 23:00 07:00 IntakeIntake Total 112.5 ml 900 ml 640 ml OutputOutput Total 40 ml 1240 ml BalanceBalance 112.5 ml 860 ml -600 ml Results Result Diagram: 03/29/19 0543 03/29/19 0543 Medications Medication Current Medications IV Flush (NS 3 ml) 3 ml PER PROTOCOL IV ; Start 03/22/19 at 16:30 Acetaminophen (Tylenol Tab) 650 mg Q6H PRN PO .PAIN 1-3 OR TEMP; Start 03/22/19 at 16:30 Acetaminophen/ Hydrocodone Bitart ([place] (5/325)) 1 tab Q6H PRN PO .MOD PAIN 4- 6 Last administered on 03/29/19 13:12; Admin Dose 1 TAB; Start 03/22/19 at 16:30 Morphine Sulfate (morphine) 2 mg Q4H PRN IV .SEVERE PAIN 7-10 Last administered on 03/25/19 14:57; Admin Dose 2 MG; Start 03/22/19 at 16:30 Bisacodyl (Dulcolax) 5 mg DAILY PRN PO .CONSTIPATION Last administered on 03/30/19 06:16; Admin Dose 5 MG; Start 03/22/19 at 16:30 Enoxaparin Sodium (Lovenox) 40 mg DAILY SC Last administered on 03/30/19 08:58; Admin Dose 40 MG; Start 03/23/19 at 09:00 Tobramycin (Tobramycin Iv Per Pharmacy) TOBRAMYCIN PER PHARMACY NOTE XX ; Start 03/22/19 at 16:30 Docusate Sodium/ Ferrous Fumarate (Anette-Sequels) 1 tab BID PO Last administered on 03/30/19 08:56; Admin Dose 1 TAB; Start 03/22/19 at 21:00 Docusate Sodium (Colace) 100 mg BID PO Last administered on 03/30/19 08:56; Admin Dose 100 MG; Start 03/23/19 at 14:30 Tobramycin 500 mg/ Dextrose 112.5 ml @ 112.5 mls/ hr Q36H IVPB Last administered on 03/29/19 05:25; Admin Dose 112.5 MLS/HR; Start 03/26/19 at 06:00 JAYRO SANTIAGO NP Mar 30, 2019 14:42
--- NOTE | 2019-03-30 14:48 | DS ---
Date/Time of Note Date/Time of Note DATE: 03/30/19 TIME: 14:42 Discharge Summary Admission/Discharge Info Admit Date/Time Mar 22, 2019 at 14:17 Discharge Date/Time Discharge Diagnosis 1. Splenic abscess. 2. Left lower lobe infiltrate/atelectasis with a left sided pleural effusion. 3. Iron deficiency. Patient Condition: Stable Hospital Course This is a 53-year-old male with history of iron deficiency anemia, recent splenic abscess status post CT-guided percutaneous drainage on 10/24/2018 and left sided pleural effusion who was discharged from [facility] after prolonged hospitalization on March 14, 2019. Patient was discharged on IV antibiotics and was expected for outpatient follow-up with general surgeon and outpatient repeat CT scan of the abdomen and pelvis however patient was unable to get CT scan in a timely fashion because of insurance reasons. Patient had follow-up appointment scheduled with surgeon as outpatient. Due to the aformentiond patient was instructed to go to the ER. He did have repeat imaging on February 20, 2019 at the hospital. He was complaining of pain in the area where spending drain was also. He was found to have a white count of 16.1. CT scan of the abdomen was showing splenic focal fluid collection measuring 9.8 x 4.3 cm continue percutaneous drainage catheter with several foci of air. CT also showe d left lower lobe consolidation. Patient was seen by infectious disease physician. We did get culture and it did show ESBL. He was placed on appropriate antibiotics. For left lower lobe infiltrate he was continue antibiotics. We did encourage him for incentive spirometry as well. Patient did have IR drain with revision of IR drain due to malpositioned. During his course of stay he did improve. He was otherwise otherwise medically. He was placed on iron sibilant for iron deficiency. The plan of care was discussed with the patient and patient verbalizes understanding. He was advised outpatient follow-up with surgeon. On the day of discharge patient was in stable condition Discussed POC with Dr. Aguilar [place] Meds Active Scripts [Tobramycin Iv Per Pharmacy] 1 EA EACH No Conflict Check, 0 EA XX NOTE for 10 Days Prov:JANELLE WAGGONER RESERVATIONIST 03/30/19 Tramadol Hcl* (Ultram*) 50 Mg Tablet, 50 MG PO Q6H PRN for PAIN, #20 TAB Prov:JANELLE WAGGONER RESERVATIONIST 03/30/19 Famotidine* (Famotidine*) 20 Mg Tablet, 20 MG PO BID, #20 TAB Prov:JIMENA STONE NP 03/14/19 Sennosides* (Senokot*) 8.6 Mg Tablet, 1 TAB PO BID, #30 TAB Prov:JIMENA STONE NP 03/14/19 Ferrous Sulfate* (Ferrous Sulfate*) 325 Mg Tabec, 325 MG PO DAILY, #30 TAB Prov:JIMENA STONE NP 03/14/19 Discontinued Scripts Sulfamethoxazole/Trimethoprim* (Bactrim Ds* Tablet) 1 Each Tablet, 1 TAB PO BID, #14 TAB Prov:TAYLOR SALINAS-C 03/17/19 [Tobramycin Iv Per Pharmacy] 1 EA EACH No Conflict Check, 0 EA XX NOTE for 7 Days Last day 03/20/2019. Prov:JIMENA STONE NP 03/14/19 Methylprednisolone* (Medrol* DOSE PACK) 4 Mg/Dose-Pack Tab.ds.pk, 4 MG PO . DIRECTED, #1 PACKET Please give 1 PACKET of Medrol dose pack. Prov:JIMENA STONE NP 03/14/19 Follow-up Plan 1. Follow up with Dr. Yuriy Wu in one week Office Address [id number] [facility] [address] [place] [id number] Office Primary Care Provider [facility] Time spent on discharge: > 30 minutes JANELLE WAGGONER NP Mar 30, 2019 14:48
[2019-03-30] MEDS ORDERED: NYSTATIN 30 GM POWDER BTL TOP SCH (15:00)
[2019-03-30] MEDS: TOBRAMYCIN 500 MG in DEXTROSE 5% 100 ML IVPB SCH (16:24)
== END 2019-03-30 18:46 | disposition home health service (06) | DRG 815 ==
LOC: FTE 10:13 → PP2 14:17 → FTE 15:12
PROVIDERS: ADMIT Internal Medicine; ATTEND Internal Medicine
DX: D73.3 Abscess of spleen (principal); J90 Pleural effusion, not elsewhere classified; E87.2 Acidosis; J98.11 Atelectasis; E66.9 Obesity, unspecified; Z68.28 Body mass index [BMI] 28.0-28.9, adult; D50.9 Iron deficiency anemia, unspecified; F32.9 Major depressive disorder, single episode, unspecified; D72.829 Elevated white blood cell count, unspecified
CPT/HCPCS: 36415; 74160; 76705; 80048; 80053; 80200; 83605; 83735; 84100; 85025; 85651; 86140; 87070; 87081; 96360; 96361; J1650; J2270; J2916; J3260; J3370; J3475; J7030; Q9967